=== PATIENT | male | born 1960 | race Two or more races ===

== ENCOUNTER 2016-07-02 09:49 | Emergency (ER) | payer OTHER ==
[~2016-07-02] VITALS: Ht 182.9 cm; Wt 131.5 kg
[2016-07-02] MEDS ORDERED: IV NORMAL SALINE 1000ML BAG 1,000 ML IV SCH (11:05)
--- NOTE | 2016-07-02 11:05 | PHYS DOC ---
Past Medical History Past Medical History: Diabetes-Type II Past Surgical History: Other Additional Past Surgical Histo: bilateral knee surgery, and right hand surgery x 3 Alcohol Use: Occasionally Drug Use: None Adult General Chief Complaint Chief Complaint: BLOOD SUGAR PROBLEM HPI HPI Patient is a 55 year old male who presents feeling sick. Patient reports since Tuesday he has felt sick and had chills. Since then he has been having nausea and vomiting; he is having trouble keeping down by mouth. He denies any diarrhea. He does have some nasal congestion and a mild headache. No fever. No other acute complaints. He has not taken anything for symptoms. Review of Systems Review of Systems Constitutional: Chills Eyes: Denies change in visual acuity or eye pain HENT: Nasal congestion. Denies sore throat Respiratory: Denies cough or shortness of breath Cardiovascular: Denies chest pain GI: Nausea /vomiting. Denies abdominal pain, bloody stools or diarrhea : Denies dysuria or hematuria Musculoskeletal: Denies back pain or joint pain Integument: Denies rash or skin lesions Neurologic: Mild headache. Denies focal weakness or sensory changes Current Medications Current Medications Current Medications Medications (Trade) Dose Ordered Sig/Luisito Start Time Stop Time Status Last Admin Dose Admin Acetaminophen (Tylenol) 1,000 mg 1X ONCE 07/02/16 11:15 07/02/16 11:32 DC 07/02/16 11:37 1,000 MG Prochlorperazine Edisylate (Compazine) 10 mg 1X ONCE 07/02/16 11:15 07/02/16 11:32 DC 07/02/16 11:38 10 MG Sodium Chloride (Iv Sodium Chloride 0.9% 1000ml Bag) 1,000 ml @ 1,000 mls/hr Q1H 07/02/16 11:05 07/02/16 12:04 DC 07/02/16 10:55 1,000 MLS/HR Allergies Allergies Allergies Coded Allergies Type Severity Reaction Last Updated Verified No Known Drug Allergies 07/02/16 No Physical Exam Physical Exam Constitutional: Well developed, well nourished, no acute distress, non-toxic appearance HENT: Normocephalic, atraumatic, bilateral external ears normal Eyes: EOMI, conjunctiva normal, no discharge Neck: Normal range of motion, no stridor Cardiovascular: Heart rate normal, regular rhythm, no murmur Lungs & Thorax: Bilateral breath sounds clear to auscultation Abdomen: Bowel sounds normal, soft, non-distended, no TTP Skin: Warm, dry, no erythema, no rash Extremities: No obvious deformity, no edema Neurologic: Alert and oriented X 3, no gross deficits noted Psychologic: Affect normal, judgement normal, mood normal Current Patient Data Vital Signs Vital Signs Date Time Temp Pulse Resp B/P Pulse Ox O2 Delivery O2 Flow Rate FiO2 07/02/16 14:07 94 28 135/65 88 Room Air 07/02/16 10:30 99.7 99.7 Lab Values Laboratory Tests Test 07/02/16 10:10 07/02/16 10:17 07/02/16 10:30 07/02/16 12:43 Influenza Type A Antigen Negative (NEGATIVE) Influenza Type B Antigen Negative (NEGATIVE) Glucose (Fingerstick) 413mg/dL (70-99) H White Blood Count 12.5x10^3/uL (4.0-11.0) H Red Blood Count 5.45x10^6/uL (4.30-5.70) Hemoglobin 15.2g/dL (13.0-17.5) Hematocrit 45.8% (39.0-53.0) Mean Corpuscular Volume 84fL (79-100) Mean Corpuscular Hemoglobin 28pg (25-35) Mean Corpuscular Hemoglobin Concent 33g/dL (31-37) Red Cell Distribution Width 15.2% (11.5-14.5) H Platelet Count 181x10^3/uL (140-400) Neutrophils (%) (Auto) 89% (31-73) H Lymphocytes (%) (Auto) 5% (24-48) L Monocytes (%) (Auto) 6% (0-9) Eosinophils (%) (Auto) 0% (0-3) Basophils (%) (Auto) 0% (0-3) Neutrophils # (Auto) 11.1x10^3uL (1.8-7.7) H Lymphocytes # (Auto) 0.6x10^3/uL (1.0-4.8) L Monocytes # (Auto) 0.8x10^3/uL (0.0-1.1) Eosinophils # (Auto) 0.0x10^3/uL (0.0-0.7) Basophils # (Auto) 0.0x10^3/uL (0.0-0.2) Segmented Neutrophils % 87% (35-66) H Band Neutrophils % 6% (0-9) Lymphocytes % 4% (24-48) L Monocytes % 3% (0-10) Metamyelocytes % % (0-0) Platelet Estimate Adequate (ADEQUATE) Large Platelets Present Sodium Level 129mmol/L (136-145) L Potassium Level 4.5mmol/L (3.5-5.1) Chloride Level 92mmol/L (98-107) L Carbon Dioxide Level 25mmol/L (21-32) Anion Gap 12 (6-14) Blood Urea Nitrogen 17mg/dL (8-26) Creatinine 1.0mg/dL (0.7-1.3) Estimated GFR (Cockcroft-Gault) 77.6 BUN/Creatinine Ratio 17 (6-20) Glucose Level 382mg/dL (70-99) H Calcium Level 8.9mg/dL (8.5-10.1) Total Bilirubin 0.8mg/dL (0.2-1.0) Aspartate Amino Transferase (AST) 18U/L (15-37) Alanine Aminotransferase (ALT) 19U/L (16-63) Alkaline Phosphatase 100U/L (46-116) Total Protein 8.1g/dL (6.4-8.2) Albumin 2.9g/dL (3.4-5.0) L Albumin/Globulin Ratio 0.6 (1.0-1.7) L Urine Collection Type Unknown Urine Color Yellow Urine Clarity Clear Urine pH 5.5 Urine Specific [place] >=1.030 Urine Protein Negativemg/dL (NEG-TRACE) Urine Glucose (UA) >=1000mg/dL (NEG) Urine Ketones (Stick) 15mg/dL (NEG) Urine Blood Moderate (NEG) Urine Nitrite Negative (NEG) Urine Bilirubin Negative (NEG) Urine Urobilinogen Dipstick 0.2mg/dL (0.2 mg/dL) Urine Leukocyte Esterase Small (NEG) Urine RBC 0/HPF (0-2) Urine WBC >40/HPF (0-4) Urine Squamous Epithelial Cells Few/LPF Urine Bacteria Few/HPF (0-FEW) Laboratory Tests 07/02/16 10:30 Laboratory Tests 07/02/16 10:30 Microbiology 07/02/16 Urine Culture - Preliminary, Resulted 07/02/16 Urine Culture Result 1 (EMILI) - Preliminary, Resulted EKG EKG [] Radiology/Procedures Radiology/Procedures [] Course & Med Decision Making Course & Med Decision Making Pertinent Labs and Imaging studies reviewed. (See chart for details) Patient is 55-year-old male who presents with nausea and vomiting. Likely viral gastroenteritis. No concerning findings on physical exam. Will be is dose of acetaminophen and Compazine, as well as IV fluid bolus. Labs ordered to evaluate. Labs notable for mild leukocytosis. Also hyperglycemia and hyponatremia; however corrected sodium is 134-136. Discussed results with patient, who is feeling much better at this time. I discussed options of inpatient admission versus discharge home with outpatient follow-up. Patient would very much like to go home at this time. Therefore we'll discharge him home with prescription for nausea medication, instructions for close follow-up, strict return precautions. Dragon Disclaimer Dragon Disclaimer This electronic medical record was generated, in whole or in part, using a voice recognition dictation system. Departure Departure Impression: Primary Impression: Nausea & vomiting Disposition: 01 HOME, SELF-CARE Condition: IMPROVED Referrals: OPAL GUTIERREZ MD (PCP) Patient Instructions: Nausea and Vomiting Additional Instructions: Thank you for allowing us to provide care today in the Emergency Department. Take the provided medication as directed. Schedule a follow up appointment with your primary care doctor. Return promptly to the Emergency Department if you develop any new or concerning symptoms. Scripts Promethazine HCl (Phenergan)25 Mg Supp.rect25 Mg RC Q8HRS PRN NAUSEA #6 SUPP.RECT Prov:YESSY BAUTISTA MD 07/02/16 Ondansetron (Zofran Odt)4 Mg Tab.rapdis1 Tab SL Q8HRS PRN NAUSEA #15 TAB Prov:YESSY BAUTISTA MD 07/02/16 YESSY BAUTISTA MD Jul 02, 2016 11:04
[2016-07-02] MEDS ORDERED: PROCHLORPERAZINE 10 MG/2 ML VIAL. IV ONE (11:15)
[2016-07-02] MEDS ORDERED: ACETAMINOPHEN 500 MG TABLET PO ONE (11:15)
[2016-07-02 11:21] LABS: BASO % 0 % (0-3); EOS % 0 % (0-3); HEMATOCRIT 45.8 % (39.0-53.0); HEMOGLOBIN 15.2 g/dL (13.0-17.5); LYMPH # 0.6 x10^3/uL (1.0-4.8); LYMPH % 5 % (24-48); MEAN CORPUSCULAR HEMOGLOBIN 28 pg (25-35); MEAN CORPUSCULAR HGB CONC 33 g/dL (31-37); MEAN CORPUSCULAR VOLUME 84 fL (79-100); MONO % 6 % (0-9); NEUT % 89 % (31-73); PLATELET COUNT 181 x10^3/uL (140-400); RED BLOOD COUNT 5.45 x10^6/uL (4.30-5.70); RED CELL DISTRIBUTION WIDTH 15.2 % (11.5-14.5); WHITE BLOOD COUNT 12.5 x10^3/uL (4.0-11.0)
[2016-07-02 11:26] LABS: CALCIUM 8.9 mg/dL (8.5-10.1); GFR 77.6; POTASSIUM 4.5 mmol/L (3.5-5.1)
[2016-07-02 11:32] LABS: ALBUMIN 2.9 g/dL (3.4-5.0); ALBUMIN/GLOBULIN RATIO 0.6 (1.0-1.7); TOTAL BILIRUBIN 0.8 mg/dL (0.2-1.0); TOTAL PROTEIN 8.1 g/dL (6.4-8.2)
[2016-07-02 12:58] LABS: PLT ESTIMATE ADEQUATE (ADEQUATE)
[2016-07-02 12:59] LABS: BILIRUBIN,URINE NEGATIVE (NEG); GLUCOSE,URINE >=1000 mg/dL (NEG); NITRITE,URINE NEGATIVE (NEG); PH,URINE 5.5; PROTEIN,URINE NEGATIVE (NEG-TRACE); UROBILINOGEN,URINE 0.2 mg/dL (0.2 mg/dL)
[2016-07-02 13:21] LABS: BACTERIA,URINE FEW /HPF (0-FEW); RBC,URINE 0 /HPF (0-2); SQUAMOUS EPITHELIAL CELL,UR FEW /LPF; WBC,URINE >40 /HPF (0-4)
[2016-07-02 14:07] VITALS: BP 135/65
[2016-07-02] MEDS ORDERED: PROM25SU32 RC (14:08)
[2016-07-02] MEDS ORDERED: ONDA4TAB10 SL (14:08)
[2016-07-03 14:15] LABS: OBC FLU VALID
--- NOTE | 2016-07-04 16:51 | VNOTE ---
CALL BACK NOTE CALL BACK Microbiology 07/02/16 Urine Culture - Final, Complete 07/02/16 Urine Culture Result 1 (EMILI) - Final, Complete 07/02/16 Antimicrobic Susceptibility - Final, Complete Patient's urine culture shows he has staph infection. Attempted to call patient , phone rang for long no one is picking. Will send certified letter. CLIFFORD ROQUE APRN Jul 04, 2016 16:51
== END 2016-07-02 14:43 | disposition home or self-care (01) ==
LOC: ER 09:49
DX: R11.2 Nausea with vomiting, unspecified (principal); E87.1 Hypo-osmolality and hyponatremia; E11.65 Type 2 diabetes mellitus with hyperglycemia; D72.829 Elevated white blood cell count, unspecified
CPT/HCPCS: 36415; 80053; 81001; 82947; 85007; 85027; 87086; 87804; 96361; 96374; 99285; J0780; J7030; 87186

== ENCOUNTER 2016-07-09 18:06 | Inpatient (IN) | payer OTHER ==
[~2016-07-09] VITALS: Ht 182.9 cm; Wt 136.1 kg
[~2016-07-09 18:06] MED LIST: ONDA4TAB10 SL; PROM25SU32 RC
[2016-07-09] MEDS ORDERED: IV NORMAL SALINE 1000ML BAG 1,000 ML IV SCH (19:18)
[2016-07-09] MEDS ORDERED: HYDROMORPHONE 2 MG/ML VIAL. IV ONE ×2 (19:30)
[2016-07-09] MEDS ORDERED: ONDANSETRON PF 4 MG/2 ML VIAL. IV ONE (19:30)
[2016-07-09 19:38] LABS: BASO # 0.1 x10^3/uL (0.0-0.2); BASO % 1 % (0-3); EOS % 1 % (0-3); HEMATOCRIT 42.9 % (39.0-53.0); HEMOGLOBIN 13.9 g/dL (13.0-17.5); LYMPH # 1.4 x10^3/uL (1.0-4.8); LYMPH % 9 % (24-48); MEAN CORPUSCULAR HEMOGLOBIN 27 pg (25-35); MEAN CORPUSCULAR HGB CONC 32 g/dL (31-37); MEAN CORPUSCULAR VOLUME 84 fL (79-100); MONO % 3 % (0-9); NEUT % 87 % (31-73); PLATELET COUNT 361 x10^3/uL (140-400); RED BLOOD COUNT 5.11 x10^6/uL (4.30-5.70); RED CELL DISTRIBUTION WIDTH 15.7 % (11.5-14.5); WHITE BLOOD COUNT 15.7 x10^3/uL (4.0-11.0)
[2016-07-09 19:42] LABS: CALCIUM 8.1 mg/dL (8.5-10.1); GFR 34.9; POTASSIUM 3.8 mmol/L (3.5-5.1)
[2016-07-09 19:47] LABS: ALBUMIN 1.8 g/dL (3.4-5.0); ALBUMIN/GLOBULIN RATIO 0.4 (1.0-1.7); TOTAL BILIRUBIN 0.7 mg/dL (0.2-1.0); TOTAL PROTEIN 6.6 g/dL (6.4-8.2)
[2016-07-09] MEDS ORDERED: ACETAMINOPHEN 325 MG TABLET. PO PRN ×2 (20:30→21:00)
[2016-07-09] MEDS ORDERED: ONDANSETRON PF 4 MG/2 ML VIAL. IV PRN (20:30)
[2016-07-09 20:32] LABS: BILIRUBIN,URINE SMALL (NEG); GLUCOSE,URINE 250 mg/dL (NEG); NITRITE,URINE NEGATIVE (NEG); PROTEIN,URINE NEGATIVE (NEG-TRACE)
[2016-07-09] MEDS: IV NORMAL SALINE 1000ML BAG 1,000 ML IV SCH ×2 (20:41→22:15)
[2016-07-09 20:42] LABS: BACTERIA,URINE MANY /HPF (0-FEW); SQUAMOUS EPITHELIAL CELL,UR MOD /LPF; WBC,URINE TNTC /HPF (0-4)
[2016-07-09 20:58] LABS: PLT ESTIMATE ADEQUATE (ADEQUATE)
[2016-07-09] MEDS ORDERED: DEXTROSE 50% 25 GM / 50ML DISP.SYRIN. IV PRN (21:00)
[2016-07-09] MEDS ORDERED: ALBUTEROL SULFATE 2.5 MG/3 ML NEBU. NEB PRN (21:00)
--- NOTE | 2016-07-09 21:00 | PDOC1 ---
History and Physical Date of Admission Date of Admission 07/09/16 Identification/Chief Complaint Chief Complaint N/V, feeling sick Problems: Source Source: Caregiver, Chart review, Patient History of Present Illness History of Present Illness 55yo M, comes for N/V ,low po intake, cough. pt started to cough since 1 week ago, with some runny nose, greenish sputum, no sob. He fell on right shoulder since then has pain. also has low po intake, body ache , vomited 2 times, feels thirsty. urination is ok. chronic constipation. in ER, Na 126, Cr 2 from 1 one week ago. has dm2 on pills. Past Medical History Endocrine: Diabetes Past Surgical History Past Surgical History: Total knee replacement Family History Family History: Diabetes Social History Smoke: No ALCOHOL: social Drugs: None Current Problem List Problem List Problems Medical Problems: (1) Acute renal injury Status: Acute (2) Nausea & vomiting Status: Acute Current Medications Current Medications Current Medications Medications (Trade) Dose Ordered Sig/Luisito Start Time Stop Time Status Last Admin Dose Admin Acetaminophen (Tylenol) 650 mg PRN Q4HRS PRN 07/09/16 20:30 07/10/16 20:29 Hydromorphone HCl (Dilaudid) 1 mg 1X ONCE 07/09/16 19:30 07/09/16 19:31 DC 07/09/16 19:33 1 MG Morphine Sulfate 4 mg 4 mg PRN Q2HR PRN 07/09/16 20:30 07/10/16 20:29 Ondansetron HCl (Zofran) 4 mg PRN Q8HRS PRN 07/09/16 20:30 07/10/16 20:29 Sodium Chloride (Iv Sodium Chloride 0.9% 1000ml Bag) 1,000 ml @ 150 mls/hr Q6H40M 07/09/16 20:24 07/10/16 20:23 07/09/16 20:41 150 MLS/HR Allergies Allergies Allergies Coded Allergies Type Severity Reaction Last Updated Verified No Known Drug Allergies 07/02/16 No ROS Review of System CONSTITUTIONAL: No fever or chills EYES: No recent changes SKIN: No rash or itching CARDIOVASCULAR: No chest pain, syncope, palpitations, or edema RESPIRATORY: No SOB or cough GASTROINTESTINAL: No nausea, vomiting or abdominal pain NEUROLOGICAL: No headaches or weakness ENDOCRINE: No cold or heat intolerance GENITOURINARY: No urgency or frequency of urination MUSCULOSKELETAL: No back pain or joint pain LYMPHATICS: No enlarged lymph nodes PSYCHIATRIC: No anxiety or depression Physical Exam Physical Exam GEN.: No apparent distress. Alert and oriented. looks weak and dry HEENT: Head is normocephalic, atraumatic NECK: Supple. LUNGS: Clear to auscultation. HEART: RRR, S1, S2 present. Peripheral pulses intact ABDOMEN: Soft, nontender. Positive bowel sounds. EXTREMITIES: Without any cyanosis. NEUROLOGIC: Normal speech, normal tone PSYCHIATRIC: Normal affect, normal mood. SKIN: No ulcerations Vitals Vitals Vital Signs Date Time Temp Pulse Resp B/P Pulse Ox O2 Delivery O2 Flow Rate FiO2 07/09/16 18:35 98.7 108 28 117/54 94 Room Air 98.7 Labs Labs Laboratory Tests Test 07/09/16 18:50 07/09/16 20:25 White Blood Count 15.7x10^3/uL (4.0-11.0) Red Blood Count 5.11x10^6/uL (4.30-5.70) Hemoglobin 13.9g/dL (13.0-17.5) Hematocrit 42.9% (39.0-53.0) Mean Corpuscular Volume 84fL (79-100) Mean Corpuscular Hemoglobin 27pg (25-35) Mean Corpuscular Hemoglobin Concent 32g/dL (31-37) Red Cell Distribution Width 15.7% (11.5-14.5) Platelet Count 361x10^3/uL (140-400) Neutrophils (%) (Auto) 87% (31-73) Lymphocytes (%) (Auto) 9% (24-48) Monocytes (%) (Auto) 3% (0-9) Eosinophils (%) (Auto) 1% (0-3) Basophils (%) (Auto) 1% (0-3) Neutrophils # (Auto) 13.6x10^3uL (1.8-7.7) Lymphocytes # (Auto) 1.4x10^3/uL (1.0-4.8) Monocytes # (Auto) 0.5x10^3/uL (0.0-1.1) Eosinophils # (Auto) 0.1x10^3/uL (0.0-0.7) Basophils # (Auto) 0.1x10^3/uL (0.0-0.2) Sodium Level 126mmol/L (136-145) Potassium Level 3.8mmol/L (3.5-5.1) Chloride Level 87mmol/L (98-107) Carbon Dioxide Level 27mmol/L (21-32) Anion Gap 12 (6-14) Blood Urea Nitrogen 57mg/dL (8-26) Creatinine 2.0mg/dL (0.7-1.3) Estimated GFR (Cockcroft-Gault) 34.9 BUN/Creatinine Ratio 29 (6-20) Glucose Level 379mg/dL (70-99) Calcium Level 8.1mg/dL (8.5-10.1) Total Bilirubin 0.7mg/dL (0.2-1.0) Aspartate Amino Transf (AST/SGOT) 55U/L (15-37) Alanine Aminotransferase (ALT/SGPT) 50U/L (16-63) Alkaline Phosphatase 107U/L (46-116) Troponin I Quantitative < 0.017ng/mL (0.000-0.055) Total Protein 6.6g/dL (6.4-8.2) Albumin 1.8g/dL (3.4-5.0) Albumin/Globulin Ratio 0.4 (1.0-1.7) Lipase 396U/L (73-393) Urine Collection Type Unknown Urine Color Flory Urine Clarity Cloudy Urine pH 5.0 Urine Specific [place] 1.015 Urine Protein Negativemg/dL (NEG-TRACE) Urine Glucose (UA) 250mg/dL (NEG) Urine Ketones (Stick) Negativemg/dL (NEG) Urine Blood Moderate (NEG) Urine Nitrite Negative (NEG) Urine Bilirubin Small (NEG) Urine Urobilinogen Dipstick 1.0mg/dL (0.2 mg/dL) Urine Leukocyte Esterase Large (NEG) Urine RBC 11-20/HPF (0-2) Urine WBC Tntc/HPF (0-4) Urine Squamous Epithelial Cells Mod/LPF Urine Amorphous Sediment Present/HPF Urine Bacteria Many/HPF (0-FEW) Urine Mucus Mod/LPF Laboratory Tests Test 07/09/16 18:50 07/09/16 20:25 White Blood Count 15.7x10^3/uL (4.0-11.0) Red Blood Count 5.11x10^6/uL (4.30-5.70) Hemoglobin 13.9g/dL (13.0-17.5) Hematocrit 42.9% (39.0-53.0) Mean Corpuscular Volume 84fL (79-100) Mean Corpuscular Hemoglobin 27pg (25-35) Mean Corpuscular Hemoglobin Concent 32g/dL (31-37) Red Cell Distribution Width 15.7% (11.5-14.5) Platelet Count 361x10^3/uL (140-400) Neutrophils (%) (Auto) 87% (31-73) Lymphocytes (%) (Auto) 9% (24-48) Monocytes (%) (Auto) 3% (0-9) Eosinophils (%) (Auto) 1% (0-3) Basophils (%) (Auto) 1% (0-3) Neutrophils # (Auto) 13.6x10^3uL (1.8-7.7) Lymphocytes # (Auto) 1.4x10^3/uL (1.0-4.8) Monocytes # (Auto) 0.5x10^3/uL (0.0-1.1) Eosinophils # (Auto) 0.1x10^3/uL (0.0-0.7) Basophils # (Auto) 0.1x10^3/uL (0.0-0.2) Sodium Level 126mmol/L (136-145) Potassium Level 3.8mmol/L (3.5-5.1) Chloride Level 87mmol/L (98-107) Carbon Dioxide Level 27mmol/L (21-32) Anion Gap 12 (6-14) Blood Urea Nitrogen 57mg/dL (8-26) Creatinine 2.0mg/dL (0.7-1.3) Estimated GFR (Cockcroft-Gault) 34.9 BUN/Creatinine Ratio 29 (6-20) Glucose Level 379mg/dL (70-99) Calcium Level 8.1mg/dL (8.5-10.1) Total Bilirubin 0.7mg/dL (0.2-1.0) Aspartate Amino Transf (AST/SGOT) 55U/L (15-37) Alanine Aminotransferase (ALT/SGPT) 50U/L (16-63) Alkaline Phosphatase 107U/L (46-116) Troponin I Quantitative < 0.017ng/mL (0.000-0.055) Total Protein 6.6g/dL (6.4-8.2) Albumin 1.8g/dL (3.4-5.0) Albumin/Globulin Ratio 0.4 (1.0-1.7) Lipase 396U/L (73-393) Urine Collection Type Unknown Urine Color [place] Urine Clarity Cloudy Urine pH 5.0 Urine Specific [place] 1.015 Urine Protein Negativemg/dL (NEG-TRACE) Urine Glucose (UA) 250mg/dL (NEG) Urine Ketones (Stick) Negativemg/dL (NEG) Urine Blood Moderate (NEG) Urine Nitrite Negative (NEG) Urine Bilirubin Small (NEG) Urine Urobilinogen Dipstick 1.0mg/dL (0.2 mg/dL) Urine Leukocyte Esterase Large (NEG) Urine RBC 11-20/HPF (0-2) Urine WBC Tntc/HPF (0-4) Urine Squamous Epithelial Cells Mod/LPF Urine Amorphous Sediment Present/HPF Urine Bacteria Many/HPF (0-FEW) Urine Mucus Mod/LPF VTE Prophylaxis Ordered VTE Prophylaxis Devices: Yes VTE Pharmacological Prophylaxi: Yes Assessment/Plan Assessment/Plan 1. dehydration 2. hyponatremia 3. NELIDA, 2/2 vasomotor, dehydration 4. dm2 5. bronchitis 6. moderate malnutrition plan: 1. ivf 2. levaquin for now, albuterol prn 3. ssi hold home meds labs tmr cough meds hope to dc in 1-2ds. LATA MAHER MD Jul 09, 2016 21:00
[2016-07-09] MEDS: GUAIFENESIN ER 600 MG TABLET.ER PO SCH (21:20)
[2016-07-09 21:30] VITALS: BP 99/58
[2016-07-09] MEDS: MORPHINE SULFATE 4 MG/ML DISP.SYRIN. IV PRN (22:20)
[2016-07-09 23:00] VITALS: BP 112/60
--- NOTE | 2016-07-09 23:35 | PHYS DOC ---
Past Medical History Past Medical History: Diabetes-Type II Past Surgical History: Other Additional Past Surgical Histo: bilateral knee surgery, and right hand surgery x 3 Alcohol Use: Occasionally Drug Use: None Adult General Chief Complaint Chief Complaint: DIZZY/LIGHT HEADED HPI HPI Patient is a 55 year old gentleman who presents here today secondary to generalized weakness, dizziness. Patient does have a history for NIDDM and reports his blood sugar has been significantly elevated for approximately one week. Family reports that he was in the ER [facility] one week ago for similar symptoms and was hydrated was sent home. They report he has not been doing very well at home and his blood sugars been consistently elevated and he has not been able to keep down his oral hypoglycemic agents. Patient denies any fevers shaking chills. He has been having episodes of nausea and vomiting. Patient denies any diarrhea. Patient has diffuse abdominal cramping. Patient has any chest pain or shortness of breath. Patient denies any dysuria frequency or urgency. Patient does report he has had decreased urinary output. Patient reports he is unable to keep down his medications. Patient has history of diabetes for which she is on metformin and [facility]. Patient has history of hypertension. Patient has no history of DKA in the past. No liver longer kidney problems. No surgeries. No allergies. Patient does not smoke or drink. Patient reports that he fell secondary feeling dizzy and injured his left shoulder however he reports he does not think it is broken and he is refusing to allow me to order an x-ray on him. He did allow me to get a chest x-ray on him and I can visualize some of his shoulder and is now broken. Patient's physical exam is remarkable for a 55-year-old gentleman who appears moderately dehydrated. Patient has dry mucous membranes and is tachycardic. Patient does appear to be uncomfortable. Patient has a normal exam otherwise. Patient's abdomen is soft nontender no rebound or guarding. No evidence of an acute surgical abdomen at this time. Normal active bowel sounds. Patient's lungs are clear without wheezing rales or rhonchi. No rashes noted. Patient denies any chest pain shortness of breath. Patient has any fevers. In the ED labs were drawn. Patient's labs were significant for a markedly depressed sodium. Patient's blood sugar was elevated. Patient did have acute renal failure likely secondary to dehydration. Patient was hydrated with normal saline solution the ED and given antiemetics and pain medicines in the ER. Given the significant hyponatremia, hydration, tachycardia nausea we will admit the patient for hydration and for further management of his uncontrolled diabetes. Patient does not appear to be in DKA at this time. Patient has a normal anion gap and no evidence of acidosis at this time. Review of Systems Review of Systems Constitutional: Denies fever or chills [] Eyes: Denies change in visual acuity, redness, or eye pain [] All other review systems are negative except as documented in the history of present illness portion. Current Medications Current Medications Current Medications Medications (Trade) Dose Ordered Sig/Luisito Start Time Stop Time Status Last Admin Dose Admin Hydromorphone HCl (Dilaudid) 1 mg 1X ONCE 07/09/16 19:30 07/09/16 19:31 DC 07/09/16 19:33 1 MG Ondansetron HCl (Zofran) 4 mg 1X ONCE 07/09/16 19:30 07/09/16 19:31 DC 07/09/16 19:33 4 MG Sodium Chloride (Iv Sodium Chloride 0.9% 1000ml Bag) 1,000 ml @ 1,000 mls/hr Q1H 07/09/16 19:18 07/09/16 20:17 DC 07/09/16 19:34 1,000 MLS/HR Allergies Allergies Allergies Coded Allergies Type Severity Reaction Last Updated Verified No Known Drug Allergies 07/02/16 No Physical Exam Physical Exam Constitutional: Well developed, well nourished, no acute distress, non-toxic appearance. [] HENT: Normocephalic, atraumatic, bilateral external ears normal, oropharynx moist, no oral exudates, nose normal. [] Eyes: PERRLA, EOMI, conjunctiva normal, no discharge. [] Neck: Normal range of motion, no tenderness, supple, no stridor. [] Cardiovascular: Tachycardic Lungs & Thorax: Bilateral breath sounds clear to auscultation [] Abdomen: Bowel sounds normal, soft, no tenderness, no masses, no pulsatile masses. [] Skin: Warm, dry, no erythema, no rash. [] Back: No tenderness, no CVA tenderness. [] Extremities: No tenderness, no cyanosis, no clubbing, ROM intact, no edema. [] Neurologic: Alert and oriented X 3, normal motor function, normal sensory function, no focal deficits noted. [] Psychologic: Affect normal, judgement normal, mood normal. [] Current Patient Data Vital Signs Vital Signs Date Time Temp Pulse Resp B/P Pulse Ox O2 Delivery O2 Flow Rate FiO2 07/09/16 20:00 102 99/49 97 Nasal Cannula 2 07/09/16 18:35 98.7 28 98.7 Lab Values Laboratory Tests Test 07/09/16 18:50 White Blood Count 15.7x10^3/uL (4.0-11.0) H Red Blood Count 5.11x10^6/uL (4.30-5.70) Hemoglobin 13.9g/dL (13.0-17.5) Hematocrit 42.9% (39.0-53.0) Mean Corpuscular Volume 84fL (79-100) Mean Corpuscular Hemoglobin 27pg (25-35) Mean Corpuscular Hemoglobin Concent 32g/dL (31-37) Red Cell Distribution Width 15.7% (11.5-14.5) H Platelet Count 361x10^3/uL (140-400) Neutrophils (%) (Auto) 87% (31-73) H Lymphocytes (%) (Auto) 9% (24-48) L Monocytes (%) (Auto) 3% (0-9) Eosinophils (%) (Auto) 1% (0-3) Basophils (%) (Auto) 1% (0-3) Neutrophils # (Auto) 13.6x10^3uL (1.8-7.7) H Lymphocytes # (Auto) 1.4x10^3/uL (1.0-4.8) Monocytes # (Auto) 0.5x10^3/uL (0.0-1.1) Eosinophils # (Auto) 0.1x10^3/uL (0.0-0.7) Basophils # (Auto) 0.1x10^3/uL (0.0-0.2) Segmented Neutrophils % 93% (35-66) H Band Neutrophils % 1% (0-9) Lymphocytes % 4% (24-48) L Monocytes % 2% (0-10) Platelet Estimate Adequate (ADEQUATE) Sodium Level 126mmol/L (136-145) L Potassium Level 3.8mmol/L (3.5-5.1) Chloride Level 87mmol/L (98-107) L Carbon Dioxide Level 27mmol/L (21-32) Anion Gap 12 (6-14) Blood Urea Nitrogen 57mg/dL (8-26) H Creatinine 2.0mg/dL (0.7-1.3) H Estimated GFR (Cockcroft-Gault) 34.9 BUN/Creatinine Ratio 29 (6-20) H Glucose Level 379mg/dL (70-99) H Calcium Level 8.1mg/dL (8.5-10.1) L Total Bilirubin 0.7mg/dL (0.2-1.0) Aspartate Amino Transferase (AST) 55U/L (15-37) H Alanine Aminotransferase (ALT) 50U/L (16-63) Alkaline Phosphatase 107U/L (46-116) Troponin I Quantitative < 0.017ng/mL (0.000-0.055) Total Protein 6.6g/dL (6.4-8.2) Albumin 1.8g/dL (3.4-5.0) L Albumin/Globulin Ratio 0.4 (1.0-1.7) L Lipase 396U/L (73-393) H Laboratory Tests 07/09/16 18:50 Laboratory Tests 07/09/16 18:50 EKG EKG [] Radiology/Procedures Radiology/Procedures [] Course & Med Decision Making Course & Med Decision Making Pertinent Labs and Imaging studies reviewed. (See chart for details) [] The case was discussed with and will be admitted for further evaluation. Dragon Disclaimer Dragon Disclaimer This electronic medical record was generated, in whole or in part, using a voice recognition dictation system. Departure Departure Impression: Primary Impression: Acute renal injury Additional Impressions: Hyponatremia Dehydration Uncontrolled diabetes mellitus Disposition: 09 ADMITTED INPATIENT Admitting Physician: Char Romero Condition: GUARDED Referrals: OPAL GUTIERREZ MD (PCP) Problem Qualifiers MITA ACEVES MD Jul 09, 2016 23:35
[2016-07-10] VITALS (8 sets, daily range): BP systolic 81–112; BP diastolic 43–57
--- NOTE | 2016-07-10 00:05 | ACF ---
Admission Forms Criteria HYPONATREMIA; HYPERNATREMIA; HYPOKALEMIA; HYPERKALEMIA; HYPOCALCEMIA; HYPERCALCEMIA Clinical Indications for Inpatient Care (Place 'X' for any and all applicable criteria): Ongoing inpatient care may be indicated for ANY ONE of the following [G](1)(2)(3 )(5): [X ]I. Hyponatremia with ANY ONE of the following: [ X]a) Sodium less than 130 mEq/L (mmol/L) (new) (6)(22) [ ]b) Sodium less than 135 mEq/L (mmol/L) with ANY ONE of the following: [ ]i) Severe medical etiology requiring inpatient management (eg, heart failure, hypovolemia) [ ]ii) Altered mental status [ ]iii) Seizures [ ]II. Hypernatremia with ANY ONE of the following: [ ]a) Sodium greater than 155 mEq/L (mmol/L) [ ]b) Sodium greater than 150 mEq/L (mmol/L) with ANY ONE of the following: [ ] i) Altered mental status [ ]ii) Seizures [ ]iii) Severe medical etiology (eg, hypovolemia, diabetes insipidus) [ ]iv) Severe weakness [ ]v) Severe medical etiology (eg, hemolysis, infection, drug overdose) [ ]III. Hypokalemia with ANY ONE of the following: [ ]a) Potassium less than 2.5 mEq/L (mmol/L) despite outpatient and emergency treatment [ ]b) Potassium less than 3.0 mEq/L (mmol/L) with ANY ONE of the following: [ ]i) Weakness [ ]ii) Cardiac abnormality (eg, arrhythmia, conduction disturbance) [ ]iii) Cardiac ischemia [ ]iv) Ileus [ ]v) Ongoing medical cause requiring inpatient management. ( e.g., acute renal wasting, SIADH) [ ]vi) Other severe symptoms [ ] IV. Hyperkalemia with ANY ONE of the following: [ ]a) Potassium greater than 6.5 mEq/L (mmol/L) [ ]b) Potassium greater than 5 mEq/L (mmol/L) with ANY ONE of the following: [ ]i) Severe ECG findings [H] [ ]ii) Acute worsening of renal failure (creatinine greater than 2.5 mg/dL (221 micromoles/L) or significant elevation for age and size) [ ] V. Hypocalcemia with ANY ONE of the following: [ ]a) Calcium less than 7 mg/dL (1.75 mmol/L) despite outpatient and emergency treatment(19) [ ]b) Calcium less than 8 mg/dL (2 mmol/L) with significant symptoms or findings; examples include: [ ]i) Cardiac abnormality (eg, arrhythmia or conduction disturbance) [ ]ii) Altered mental status [ ]iii) Seizures [ ]iv) Breathing difficulty [ ]v) Muscle spasms [ ]. Hypercalcemia with ANY ONE of the following: [ ]a) Calcium greater than 14 mg/dL (3.5 mmol/L) [ ]b) Calcium greater than 12 mg/dL (3 mmol/L) with ANY ONE of the following: [ ]i) Significant dehydration or hypovolemia as indicated by ANY ONE of the following(2): [ ]1. Clinically significant dehydration as indicated by ANY ONE of the following: [ ]A. Acute loss of weight from baseline (5% of body weight in adults, 9% in pediatric patients) [ ]B. Hemodynamic instability [ ]C. Acute renal failure [ ]D. Serum sodium greater than 150 mEq/L (mmol/L) [ ]2) Dehydration that is persistent indicated by ALL of the following: [ ]A. Oral rehydration therapy not tolerated or insufficient to adequately correct dehydration [ ]B. Appropriate intravenous treatment (eg, fluids ) does not readily correct dehydration ie, after 12 to 24 hours of treatment) [ ]ii) Significant symptoms or findings; examples include: [ ]1) Altered mental status [ ]2) Cardiac abnormality (eg, arrhythmia, conduction disturbance) [ ]3) Cardiac abnormality (eg, arrhythmia, conduction disturbance) The original [facility] content created by [email or web address] has been revised. The portions of the content which have been revised are identified through the use of italic text or in bold, and [email or web address] has neither reviewed nor approved the modified material. All other unmodified content is copyright [email or web address] Please see references footnoted in the original [email or web address] edition 2016 Admission Criteria Met?: Yes COOKIE SALCIDO Jul 10, 2016 00:05
--- NOTE | 2016-07-10 02:09 | EKG ---
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
[2016-07-10] MEDS: IV NORMAL SALINE 1000ML BAG 1,000 ML IV SCH ×5 (03:04→18:20)
[2016-07-10 06:19] LABS: CALCIUM 7.8 mg/dL (8.5-10.1); CREATININE 1.6 mg/dL (0.7-1.3); GFR 45.1; POTASSIUM 3.5 mmol/L (3.5-5.1)
[2016-07-10] MEDS: MORPHINE SULFATE 4 MG/ML DISP.SYRIN. IV PRN (06:36)
[2016-07-10] MEDS: INSULIN ASPART 300 UNITS/3 ML INSULN.PEN SQ SCH ×3 (08:09→17:11)
--- NOTE | 2016-07-10 08:43 | RAD ---
Indication pain. A single view of the chest was obtained. No prior imaging is available. The heart, pulmonary vessels and mediastinum appear unremarkable. A focal infiltrate is not seen. There is no significant pleural fluid or pneumothorax. There is a nodule in the left lower lobe. Comparison with any old films or follow-up imaging assessing stability is advised. The findings and recommendations were communicated to Nessa, one of the nurses in the emergency room, at the time of dictation IMPRESSION: No acute finding. Nodule in the left lung. Comparison with old films or follow-up imaging advised
[2016-07-10] MEDS: GUAIFENESIN ER 600 MG TABLET.ER PO SCH ×2 (09:22→21:47)
--- NOTE | 2016-07-10 09:29 | PDOC ---
PROGRESS NOTES Chief Complaint Chief Complaint Dehydration ASSESSMENT AND PLAN: 1. Dehydration: slowly improving. cont IVF for now 2. Hyponatremia: improving. cont IVF 3. NELIDA, 2/2 vasomotor/ dehydration. suspicious for underlying CKD with e.lyte imbalance and hypoalbuminemia. nephrology consult 4. LLL lung nodule: reviewed by myself: non-spiculated. obtain (non-con) CT chest to eval 5. DM2: fair control. hold oral meds for now 2/2 above. ISS 6. Bronchitis: on levaquin, suppl O2, cough meds 7. Recent S.epi UTI: sens to levaquin 8. Hypoalbuminemia: severe, in BMI 38. ? acute inflammation, malnutrition vs renal losses. supplements 9. prophylaxis: heparin Vitals Vitals Vital Signs Date Time Temp Pulse Resp B/P Pulse Ox O2 Delivery O2 Flow Rate FiO2 07/10/16 07:30 Room Air 07/10/16 07:15 98.4 125 20 81/43 92 98.4 07/09/16 23:00 2.0 Physical Exam General: Alert, Oriented X3, Cooperative, No acute distress Heart: Regular rate Lungs: Clear Abdomen: Normal bowel sounds, Soft, No tenderness Extremities: No clubbing, No edema Skin: No rashes Labs LABS Laboratory Tests Test 07/09/16 18:50 07/09/16 20:25 07/09/16 21:33 07/10/16 03:45 White Blood Count 15.7x10^3/uL (4.0-11.0) Red Blood Count 5.11x10^6/uL (4.30-5.70) Hemoglobin 13.9g/dL (13.0-17.5) Hematocrit 42.9% (39.0-53.0) Mean Corpuscular Volume 84fL (79-100) Mean Corpuscular Hemoglobin 27pg (25-35) Mean Corpuscular Hemoglobin Concent 32g/dL (31-37) Red Cell Distribution Width 15.7% (11.5-14.5) Platelet Count 361x10^3/uL (140-400) Neutrophils (%) (Auto) 87% (31-73) Lymphocytes (%) (Auto) 9% (24-48) Monocytes (%) (Auto) 3% (0-9) Eosinophils (%) (Auto) 1% (0-3) Basophils (%) (Auto) 1% (0-3) Neutrophils # (Auto) 13.6x10^3uL (1.8-7.7) Lymphocytes # (Auto) 1.4x10^3/uL (1.0-4.8) Monocytes # (Auto) 0.5x10^3/uL (0.0-1.1) Eosinophils # (Auto) 0.1x10^3/uL (0.0-0.7) Basophils # (Auto) 0.1x10^3/uL (0.0-0.2) Segmented Neutrophils % 93% (35-66) Band Neutrophils % 1% (0-9) Lymphocytes % 4% (24-48) Monocytes % 2% (0-10) Platelet Estimate Adequate (ADEQUATE) Sodium Level 126mmol/L (136-145) 130mmol/L (136-145) Potassium Level 3.8mmol/L (3.5-5.1) 3.5mmol/L (3.5-5.1) Chloride Level 87mmol/L (98-107) 91mmol/L (98-107) Carbon Dioxide Level 27mmol/L (21-32) 27mmol/L (21-32) Anion Gap 12 (6-14) 12 (6-14) Blood Urea Nitrogen 57mg/dL (8-26) 59mg/dL (8-26) Creatinine 2.0mg/dL (0.7-1.3) 1.6mg/dL (0.7-1.3) Estimated GFR (Cockcroft-Gault) 34.9 45.1 BUN/Creatinine Ratio 29 (6-20) Glucose Level 379mg/dL (70-99) 195mg/dL (70-99) Calcium Level 8.1mg/dL (8.5-10.1) 7.8mg/dL (8.5-10.1) Total Bilirubin 0.7mg/dL (0.2-1.0) Aspartate Amino Transf (AST/SGOT) 55U/L (15-37) Alanine Aminotransferase (ALT/SGPT) 50U/L (16-63) Alkaline Phosphatase 107U/L (46-116) Troponin I Quantitative < 0.017ng/mL (0.000-0.055) Total Protein 6.6g/dL (6.4-8.2) Albumin 1.8g/dL (3.4-5.0) Albumin/Globulin Ratio 0.4 (1.0-1.7) Lipase 396U/L (73-393) Urine Collection Type Unknown Urine Color Flory Urine Clarity Cloudy Urine pH 5.0 Urine Specific [place] 1.015 Urine Protein Negativemg/dL (NEG-TRACE) Urine Glucose (UA) 250mg/dL (NEG) Urine Ketones (Stick) Negativemg/dL (NEG) Urine Blood Moderate (NEG) Urine Nitrite Negative (NEG) Urine Bilirubin Small (NEG) Urine Urobilinogen Dipstick 1.0mg/dL (0.2 mg/dL) Urine Leukocyte Esterase Large (NEG) Urine RBC 11-20/HPF (0-2) Urine WBC Tntc/HPF (0-4) Urine Squamous Epithelial Cells Mod/LPF Urine Amorphous Sediment Present/HPF Urine Bacteria Many/HPF (0-FEW) Urine Mucus Mod/LPF Glucose (Fingerstick) 294mg/dL (70-99) Test 07/10/16 07:15 Glucose (Fingerstick) 209mg/dL (70-99) Review of Systems Review of Systems feels poorly, tearful. no focal c/o Assessment and Plan Assessmemt and Plan Problems: Comment Review of Relevant ERAN MATUTE MD Jul 10, 2016 09:29
[2016-07-10] MEDS ORDERED: IV NORMAL SALINE 1000ML BAG 1,000 ML IV ONE (10:30)
[2016-07-10] MEDS: ALPRAZOLAM 0.5 MG TABLET PO PRN ×2 (13:08→23:29)
[2016-07-10] MEDS ORDERED: MAGNESIUM SULFATE 2GM 50 ML IV PRN (14:00)
--- NOTE | 2016-07-10 14:03 | PDOC2 ---
CONSULT Date of Consult Date of Consult DATE: 07/10/16 TIME: 14:01 Reason for Consult Reason for Consult: NELIDA Referring Physician Referring Physician: Dr Jones Identification/Chief Complaint Chief Complaint Feeling weak Problems: Source Source: Chart review Past Medical History Rheumatologic: Other (arthritis) Endocrine: Diabetes Past Surgical History Past Surgical History Knee surgery Family History Family History: Diabetes Social History No ALCOHOL: social Drugs: None Current Problem List Problem List Problems Medical Problems: (1) Acute renal injury Status: Acute (2) Dehydration Status: Acute (3) Hyponatremia Status: Acute (4) Nausea & vomiting Status: Acute (5) Uncontrolled diabetes mellitus Status: Acute Current Medications Current Medications Current Medications Sodium Chloride (Iv Sodium Chloride 0.9% 1000ml Bag) 1,000 ml @ 1,000 mls/hr Q1H IV Last administered on 07/09/16 19:34; Start 07/09/16 at 19:18; Stop at 20:17; Status DC Hydromorphone HCl (Dilaudid) 2 mg 1X ONCE IV ; Start 07/09/16 at 19:30; Stop at 19:30; Status DC Ondansetron HCl (Zofran) 4 mg 1X ONCE IV Last administered on 07/09/16 19:33 ; Start 07/09/16 at 19:30; Stop 07/09/16 at 19:31; Status DC Hydromorphone HCl (Dilaudid) 1 mg 1X ONCE IV Last administered on 07/09/16 19 :33; Start 07/09/16 at 19:30; Stop 07/09/16 at 19:31; Status DC Ondansetron HCl (Zofran) 4 mg PRN Q8HRS PRN IV NAUSEA/VOMITING; Start 07/09/16 at 20:30; Stop 07/09/16 at 21:00; Status DC Morphine Sulfate 4 mg 4 mg PRN Q2HR PRN IV PAIN Last administered on 07/10/16 06:36; Start 07/09/16 at 20:30; Stop 07/10/16 at 13:00; Status DC Sodium Chloride (Iv Sodium Chloride 0.9% 1000ml Bag) 1,000 ml @ 150 mls/hr Q6H40M IV Last administered on 07/09/16 20:41; Start 07/09/16 at 20:24; Stop 07/10/16 at 20:23 Acetaminophen (Tylenol) 650 mg PRN Q4HRS PRN PO FEVER; Start 07/09/16 at 20:30 ; Stop 07/09/16 at 21:00; Status DC Acetaminophen (Tylenol) 650 mg PRN Q6HRS PRN PO FEVER; Start 07/09/16 at 21:00 Ondansetron HCl 4 mg 4 mg PRN Q6HRS PRN IV NAUSEA/VOMITING; Start 07/09/16 at 21:00 Sodium Chloride (Iv Sodium Chloride 0.9% 1000ml Bag) 1,000 ml @ 150 mls/hr Q6H40M IV Last administered on 07/10/16 11:33; Start 07/09/16 at 21:00 Insulin Aspart (Novolog) 0-9 UNITS TIDWMEALS SQ Last administered on 07/10/16 12:17; Start 07/10/16 at 08:00 Dextrose 12.5 gm 12.5 gm PRN Q15MIN PRN IV SEE COMMENTS; Start 07/09/16 at 21: 00 Levofloxacin/ Dextrose (LEVAQUIN 500mg PREMIX) 100 ml @ 100 mls/hr Q24H IV Last administered on 07/09/16 21:20; Start 07/09/16 at 22:00 Guaifenesin (Mucinex) 600 mg BID PO Last administered on 07/10/16 09:22; Start 07/09/16 at 21:00 Albuterol Sulfate 2.5 mg 2.5 mg PRN Q4HRS PRN NEB SHORTNESS OF BREATH; Start at 21:00 Sodium Chloride (Iv Sodium Chloride 0.9% 1000ml Bag) 1,000 ml @ 0 mls/hr 1X ONCE IV Last administered on 07/10/16 10:27; Start 07/10/16 at 10:30; Stop at 10:31; Status DC Alprazolam (Xanax) 0.5 mg PRN Q8HRS PRN PO ANXIETY / AGITATION Last administered on 07/10/16 13:08; Start 07/10/16 at 13:00 Acetaminophen/ Hydrocodone Bitart (Lortab 5/325) 1 tab PRN Q6HRS PRN PO PAIN; Start 07/10/16 at 13:00 Acetaminophen (Tylenol) 650 mg PRN Q6HRS PRN PO MILD PAIN / TEMP; Start at 13:00 Heparin Sodium (Porcine) 5,000 unit Q8HRS SQ ; Start 07/10/16 at 14:00 Active Scripts Active Phenergan (Promethazine HCl) 25 Mg Supp.rect 25 Mg RC Q8HRS PRN Zofran Odt (Ondansetron) 4 Mg Tab.rapdis 1 Tab SL Q8HRS PRN Allergies Allergies: Coded Allergies: No Known Drug Allergies (Unverified , 07/02/16) ROS Review of System as outlined in HPI - other kwan -ve Physical Exam Physical Exam General Appearance: Awake Alert Oriented x 3 In no Distress Eyes: VIsion Unchanged Conjunctiva Normal EN: No EN Drainage Mucous Memb. dryish Neck: no JVD no JVP Supple no Thyromegaly CVS: S1 S2 no Murmur No Gallop No Rub no Edema Resp: no Rales no Rhonchi no Acc. Muscle use GI: BAS +ve NO Bruit Non Tender Non Distended : no CVA tenderness; no Suprapubic Tenderness SKIN: no Rashes Breast Exam deferred Mu.Sk: Adequate ROM no Muscle Atrophy Heme: Unable to palpate Obvious LAD no Splenomegaly NEURO: Good Strength and Tone Cranial Nerves II - XII grossly intact Psych: ? Depressed no Active hallucination Vital Signs Vital Signs Date Time Temp Pulse Resp B/P Pulse Ox O2 Delivery O2 Flow Rate FiO2 07/10/16 13:36 103 20 101/46 Room Air 07/10/16 10:10 99.3 95 99.3 07/09/16 23:00 2.0 Assessment & Plan NELIDA - suspect due to Sev VMN - Better with IVF. Current FLuid and E-lyte status does not necessitate emergent need for Dialysis. will chec CK due to dark colored and urine and discrepancy of RBCs to Blood. Pt declined renal US HypoNatremia - due to NV and Vol dpeltion besides some PseudoHypoNatremia from Ch ^ ed FSBS SEv. Vol depletion - IVf as ordered Oliguria- Improving with iVf as ordered Poorly controlled DM - check A1c; sees Dr Diana as OP Pancreatitis - ? due to Dehydration and poorly controlled DM-2 Sev Hypoalbuminemia - suspect due to Poor PO intake over the last few months HTN: Current BP meds reviewed. See orders for changes. Discussed Plan of Care and prognosis etc. at length with family () Labs Labs Laboratory Tests Test 07/09/16 18:50 07/09/16 20:25 07/09/16 21:33 07/10/16 03:45 White Blood Count 15.7x10^3/uL (4.0-11.0) Red Blood Count 5.11x10^6/uL (4.30-5.70) Hemoglobin 13.9g/dL (13.0-17.5) Hematocrit 42.9% (39.0-53.0) Mean Corpuscular Volume 84fL (79-100) Mean Corpuscular Hemoglobin 27pg (25-35) Mean Corpuscular Hemoglobin Concent 32g/dL (31-37) Red Cell Distribution Width 15.7% (11.5-14.5) Platelet Count 361x10^3/uL (140-400) Neutrophils (%) (Auto) 87% (31-73) Lymphocytes (%) (Auto) 9% (24-48) Monocytes (%) (Auto) 3% (0-9) Eosinophils (%) (Auto) 1% (0-3) Basophils (%) (Auto) 1% (0-3) Neutrophils # (Auto) 13.6x10^3uL (1.8-7.7) Lymphocytes # (Auto) 1.4x10^3/uL (1.0-4.8) Monocytes # (Auto) 0.5x10^3/uL (0.0-1.1) Eosinophils # (Auto) 0.1x10^3/uL (0.0-0.7) Basophils # (Auto) 0.1x10^3/uL (0.0-0.2) Segmented Neutrophils % 93% (35-66) Band Neutrophils % 1% (0-9) Lymphocytes % 4% (24-48) Monocytes % 2% (0-10) Platelet Estimate Adequate (ADEQUATE) Sodium Level 126mmol/L (136-145) 130mmol/L (136-145) Potassium Level 3.8mmol/L (3.5-5.1) 3.5mmol/L (3.5-5.1) Chloride Level 87mmol/L (98-107) 91mmol/L (98-107) Carbon Dioxide Level 27mmol/L (21-32) 27mmol/L (21-32) Anion Gap 12 (6-14) 12 (6-14) Blood Urea Nitrogen 57mg/dL (8-26) 59mg/dL (8-26) Creatinine 2.0mg/dL (0.7-1.3) 1.6mg/dL (0.7-1.3) Estimated GFR (Cockcroft-Gault) 34.9 45.1 BUN/Creatinine Ratio 29 (6-20) Glucose Level 379mg/dL (70-99) 195mg/dL (70-99) Calcium Level 8.1mg/dL (8.5-10.1) 7.8mg/dL (8.5-10.1) Total Bilirubin 0.7mg/dL (0.2-1.0) Aspartate Amino Transf (AST/SGOT) 55U/L (15-37) Alanine Aminotransferase (ALT/SGPT) 50U/L (16-63) Alkaline Phosphatase 107U/L (46-116) Troponin I Quantitative < 0.017ng/mL (0.000-0.055) Total Protein 6.6g/dL (6.4-8.2) Albumin 1.8g/dL (3.4-5.0) Albumin/Globulin Ratio 0.4 (1.0-1.7) Lipase 396U/L (73-393) Urine Collection Type Unknown Urine Color Flory Urine Clarity Cloudy Urine pH 5.0 Urine Specific [place] 1.015 Urine Protein Negativemg/dL (NEG-TRACE) Urine Glucose (UA) 250mg/dL (NEG) Urine Ketones (Stick) Negativemg/dL (NEG) Urine Blood Moderate (NEG) Urine Nitrite Negative (NEG) Urine Bilirubin Small (NEG) Urine Urobilinogen Dipstick 1.0mg/dL (0.2 mg/dL) Urine Leukocyte Esterase Large (NEG) Urine RBC 11-20/HPF (0-2) Urine WBC Tntc/HPF (0-4) Urine Squamous Epithelial Cells Mod/LPF Urine Amorphous Sediment Present/HPF Urine Bacteria Many/HPF (0-FEW) Urine Mucus Mod/LPF Glucose (Fingerstick) 294mg/dL (70-99) Test 07/10/16 07:15 07/10/16 11:27 Glucose (Fingerstick) 209mg/dL (70-99) 249mg/dL (70-99) Laboratory Tests Test 07/09/16 18:50 07/09/16 20:25 07/09/16 21:33 07/10/16 03:45 White Blood Count 15.7x10^3/uL (4.0-11.0) Red Blood Count 5.11x10^6/uL (4.30-5.70) Hemoglobin 13.9g/dL (13.0-17.5) Hematocrit 42.9% (39.0-53.0) Mean Corpuscular Volume 84fL (79-100) Mean Corpuscular Hemoglobin 27pg (25-35) Mean Corpuscular Hemoglobin Concent 32g/dL (31-37) Red Cell Distribution Width 15.7% (11.5-14.5) Platelet Count 361x10^3/uL (140-400) Neutrophils (%) (Auto) 87% (31-73) Lymphocytes (%) (Auto) 9% (24-48) Monocytes (%) (Auto) 3% (0-9) Eosinophils (%) (Auto) 1% (0-3) Basophils (%) (Auto) 1% (0-3) Neutrophils # (Auto) 13.6x10^3uL (1.8-7.7) Lymphocytes # (Auto) 1.4x10^3/uL (1.0-4.8) Monocytes # (Auto) 0.5x10^3/uL (0.0-1.1) Eosinophils # (Auto) 0.1x10^3/uL (0.0-0.7) Basophils # (Auto) 0.1x10^3/uL (0.0-0.2) Segmented Neutrophils % 93% (35-66) Band Neutrophils % 1% (0-9) Lymphocytes % 4% (24-48) Monocytes % 2% (0-10) Platelet Estimate Adequate (ADEQUATE) Sodium Level 126mmol/L (136-145) 130mmol/L (136-145) Potassium Level 3.8mmol/L (3.5-5.1) 3.5mmol/L (3.5-5.1) Chloride Level 87mmol/L (98-107) 91mmol/L (98-107) Carbon Dioxide Level 27mmol/L (21-32) 27mmol/L (21-32) Anion Gap 12 (6-14) 12 (6-14) Blood Urea Nitrogen 57mg/dL (8-26) 59mg/dL (8-26) Creatinine 2.0mg/dL (0.7-1.3) 1.6mg/dL (0.7-1.3) Estimated GFR (Cockcroft-Gault) 34.9 45.1 BUN/Creatinine Ratio 29 (6-20) Glucose Level 379mg/dL (70-99) 195mg/dL (70-99) Calcium Level 8.1mg/dL (8.5-10.1) 7.8mg/dL (8.5-10.1) Total Bilirubin 0.7mg/dL (0.2-1.0) Aspartate Amino Transf (AST/SGOT) 55U/L (15-37) Alanine Aminotransferase (ALT/SGPT) 50U/L (16-63) Alkaline Phosphatase 107U/L (46-116) Troponin I Quantitative < 0.017ng/mL (0.000-0.055) Total Protein 6.6g/dL (6.4-8.2) Albumin 1.8g/dL (3.4-5.0) Albumin/Globulin Ratio 0.4 (1.0-1.7) Lipase 396U/L (73-393) Urine Collection Type Unknown Urine Color Flory Urine Clarity Cloudy Urine pH 5.0 Urine Specific [place] 1.015 Urine Protein Negativemg/dL (NEG-TRACE) Urine Glucose (UA) 250mg/dL (NEG) Urine Ketones (Stick) Negativemg/dL (NEG) Urine Blood Moderate (NEG) Urine Nitrite Negative (NEG) Urine Bilirubin Small (NEG) Urine Urobilinogen Dipstick 1.0mg/dL (0.2 mg/dL) Urine Leukocyte Esterase Large (NEG) Urine RBC 11-20/HPF (0-2) Urine WBC Tntc/HPF (0-4) Urine Squamous Epithelial Cells Mod/LPF Urine Amorphous Sediment Present/HPF Urine Bacteria Many/HPF (0-FEW) Urine Mucus Mod/LPF Glucose (Fingerstick) 294mg/dL (70-99) Test 2/18/17 07:15 07/10/16 11:27 Glucose (Fingerstick) 209mg/dL (70-99) 249mg/dL (70-99) Images Images Indication pain. A single view of the chest was obtained. No prior imaging is available. The heart, pulmonary vessels and mediastinum appear unremarkable. A focal infiltrate is not seen. There is no significant pleural fluid or pneumothorax. There is a nodule in the left lower lobe. Comparison with any old films or follow-up imaging assessing stability is advised. The findings and recommendations were communicated to Nessa, one of the nurses in the emergency room, at the time of dictation IMPRESSION: No acute finding. Nodule in the left lung. Comparison with old films or follow-up imaging advised LINDSEY HELMS MD Jul 10, 2016 14:03
[2016-07-10] MEDS: HEPARIN PF for SUB-Q USE 5,000 UNIT/0.5 ML VIAL. SQ SCH ×2 (14:13→21:55)
[2016-07-10] MEDS: ACETAMINOPHEN 325 MG TABLET. PO PRN (21:47)
[2016-07-11] MEDS: IV NORMAL SALINE 1000ML BAG 1,000 ML IV SCH ×4 (01:36→18:53)
[2016-07-11] MEDS: DIPHENHYDRAMINE 50 MG/ML VIAL IVP PRN ×3 (01:36→22:02)
[2016-07-11] MEDS: LORAZEPAM 2 MG/ML VIAL IV PRN (01:36)
[2016-07-11 03:30] VITALS: BP 99/59
[2016-07-11 04:39] LABS: BASO # 0.1 x10^3/uL (0.0-0.2); BASO % 1 % (0-3); EOS % 0 % (0-3); HEMATOCRIT 40.7 % (39.0-53.0); HEMOGLOBIN 13.2 g/dL (13.0-17.5); LYMPH % 5 % (24-48); MEAN CORPUSCULAR HEMOGLOBIN 28 pg (25-35); MEAN CORPUSCULAR HGB CONC 33 g/dL (31-37); MEAN CORPUSCULAR VOLUME 85 fL (79-100); MONO % 4 % (0-9); NEUT % 91 % (31-73); PLATELET COUNT 360 x10^3/uL (140-400); RED BLOOD COUNT 4.79 x10^6/uL (4.30-5.70); RED CELL DISTRIBUTION WIDTH 15.5 % (11.5-14.5); WHITE BLOOD COUNT 19.5 x10^3/uL (4.0-11.0)
[2016-07-11 05:00] LABS: MAGNESIUM 2.1 mg/dL (1.8-2.4)
[2016-07-11 05:01] LABS: ALBUMIN 1.3 g/dL (3.4-5.0); ALBUMIN/GLOBULIN RATIO 0.3 (1.0-1.7); CALCIUM 7.6 mg/dL (8.5-10.1); CREATININE 1.5 mg/dL (0.7-1.3); GFR 48.6; PHOSPHORUS 3.6 mg/dL (2.6-4.7); POTASSIUM 3.7 mmol/L (3.5-5.1); TOTAL BILIRUBIN 0.8 mg/dL (0.2-1.0); TOTAL PROTEIN 5.3 g/dL (6.4-8.2)
[2016-07-11] MEDS: HEPARIN PF for SUB-Q USE 5,000 UNIT/0.5 ML VIAL. SQ SCH ×2 (05:33→14:02)
[2016-07-11 07:07] VITALS: BP 110/55
--- NOTE | 2016-07-11 08:04 | CONS ---
DATE OF CONSULTATION: REASON FOR CONSULTATION: Acute renal failure. HISTORY OF PRESENT ILLNESS: The patient is a pleasant 55-year-old gentleman who apparently has been ill for the last 3 to 4 weeks. He had a cortisone shot to his knee. He claims it spiked his sugars really high. He thereafter also developed flu-like symptoms and has been extremely weak, fatigued and tired. He has had some nausea, vomiting, abdominal discomfort. Denies fevers or chills per se. He claims he was unable to keep his food down. He was seen in the ER approximately a week ago, was given IV fluids and sent home. His creatinine was normal at that time. He claims his sugars were running occasionally as high as 600. He was unable to keep his oral hypoglycemic agents down, represented to the ER for further evaluation. At presentation, he was noted to be hyponatremic with a sodium of 126, albumin of 1.8, lipase of 396. His sodium is up to 130 with sugars running in the low . We were asked to see him for further evaluation for his elevated creatinine of 2.0 at presentation as well as other electrolyte abnormalities. For rest of the details, please see electronic renal consult note. LINDSEY HELMS MD DR: KAVIN/luke JOB#: [id number] / [id number]
[2016-07-11] MEDS: GUAIFENESIN ER 600 MG TABLET.ER PO SCH ×2 (08:11→21:00)
[2016-07-11] MEDS: INSULIN ASPART 300 UNITS/3 ML INSULN.PEN SQ SCH ×5 (08:13→17:21)
[2016-07-11 10:55] VITALS: BP 117/59
[2016-07-11] MEDS: HYDROCODONE/APAP 5/325MG TABLET. PO PRN ×2 (10:56→22:02)
--- NOTE | 2016-07-11 12:17 | PDOC ---
SUBJECTIVE ROS NELIDA feels like bugs are crawling all over him - still very weak, feels paranoid CVS: no Orthopnea, no CP RESP: no SOB, no FRIAS GI: no Nausea, no Vomiting : no Dysuria, no Urgency OBJECTIVE Vital Signs Vital Signs Date Time Temp Pulse Resp B/P Pulse Ox O2 Delivery O2 Flow Rate FiO2 07/11/16 11:56 18 94 Nasal Cannula 2.0 07/11/16 10:55 99.0 104 117/59 99.0 I & 0 Intake and Output 07/11/16 07:00 Intake Total 880 ml Output Total 2000 ml Balance -1120 ml Intake Oral 780 ml IV Total 100 ml Output Urine Total 2000 ml # Voids 1 PHYSICAL EXAM Physical Exam General Appearance: Awake Alert Oriented x 3 In no Distress Eyes: VIsion Unchanged Conjunctiva Normal EN: No EN Drainage Mucous Memb. dryish Neck: no JVD no JVP Supple no Thyromegaly CVS: S1 S2 no Murmur No Gallop No Rub no Edema Resp: no Rales no Rhonchi no Acc. Muscle use GI: BAS +ve NO Bruit Non Tender Non Distended : no CVA tenderness; no Suprapubic Tenderness SKIN: no Rashes Breast Exam deferred Mu.Sk: Adequate ROM no Muscle Atrophy Heme: Unable to palpate Obvious LAD no Splenomegaly NEURO: Good Strength and Tone Cranial Nerves II - XII grossly intact Psych: ? Depressed no Active hallucination Assessment & Plan NELIDA - suspect due to Sev VMN - some Better with IVF. Current FLuid and E- lyte status does not necessitate emergent need for Dialysis. CK WNL despit dark colored urine and discrepancy of RBCs to Blood. Pt now agrees to renal US so rodered HypoNatremia - due to NV and Vol depletion besides some PseudoHypoNatremia from Ch ^ ed FSBS - better now, ct IVF and use IV Alb too SEv. Vol depletion - IVf as ordered Oliguria- Improving with iVf as ordered Poorly controlled DM - as noted by A1c; sees Dr Diana as OP Pancreatitis - ? due to Dehydration and poorly controlled DM-2; recheck Lipase for trend Low grd fevers - watch trend; WBC is up too Sev Hypoalbuminemia - suspect due to Poor PO intake over the last few months HTN: Current BP meds reviewed. See orders for changes. Discussed Plan of Care and prognosis etc. at length with family () COMMENT/RELEVANT DATA Meds Current Medications Medications (Trade) Dose Ordered Sig/Luisito Start Time Stop Time Status Last Admin Dose Admin Acetaminophen (Tylenol) 650 mg PRN Q6HRS PRN 07/10/16 13:00 07/10/16 21:47 650 MG Acetaminophen/ Hydrocodone Bitart (Lortab 5/325) 1 tab PRN Q6HRS PRN 07/10/16 13:00 07/11/16 10:56 1 TAB Albuterol Sulfate 2.5 mg 2.5 mg PRN Q4HRS PRN 07/09/16 21:00 Alprazolam (Xanax) 0.5 mg PRN Q8HRS PRN 07/10/16 13:00 07/10/16 23:29 0.5 MG Dextrose 12.5 gm 12.5 gm PRN Q15MIN PRN 07/09/16 21:00 Diphenhydramine HCl (Benadryl) 25 mg PRN Q6HRS PRN 07/11/16 01:30 07/11/16 01:36 25 MG Guaifenesin (Mucinex) 600 mg BID 07/09/16 21:00 07/11/16 08:11 600 MG Heparin Sodium (Porcine) 5000 unit 5,000 unit Q8HRS 07/10/16 14:00 07/10/16 14:13 5,000 UNIT Hydromorphone HCl (Dilaudid) 1 mg 1X ONCE 07/09/16 19:30 07/09/16 19:31 DC 07/09/16 19:33 1 MG Insulin Aspart (Novolog) 0-9 UNITS TIDWMEALS 07/10/16 08:00 07/11/16 12:03 9 UNITS Levofloxacin/ Dextrose (LEVAQUIN 500mg PREMIX) 100 ml @ 100 mls/hr Q24H 07/09/16 22:00 07/10/16 21:48 100 MLS/HR Lorazepam (Ativan) 2 mg PRN Q4HRS PRN 07/11/16 01:30 07/11/16 01:36 2 MG Magnesium Sulfate/ Dextrose (Magnesium Sulfate PREMIX 2GM) 50 ml @ 25 mls/hr PRN DAILY PRN 07/10/16 14:00 Morphine Sulfate 4 mg PRN Q2HR PRN 07/09/16 20:30 07/10/16 13:00 DC 07/10/16 06:36 4 MG Ondansetron HCl (Zofran) 4 mg PRN Q6HRS PRN 07/09/16 21:00 Sodium Chloride (Iv Sodium Chloride 0.9% 1000ml Bag) 1,000 ml @ 0 mls/hr 1X ONCE 07/10/16 10:30 07/10/16 10:31 DC 07/10/16 10:27 990 MLS/HR Lab Laboratory Tests Test 07/10/16 16:06 07/10/16 20:36 07/11/16 03:45 07/11/16 07:13 Glucose (Fingerstick) 238mg/dL (70-99) 182mg/dL (70-99) 250mg/dL (70-99) White Blood Count 19.5x10^3/uL (4.0-11.0) Red Blood Count 4.79x10^6/uL (4.30-5.70) Hemoglobin 13.2g/dL (13.0-17.5) Hematocrit 40.7% (39.0-53.0) Mean Corpuscular Volume 85fL (79-100) Mean Corpuscular Hemoglobin 28pg (25-35) Mean Corpuscular Hemoglobin Concent 33g/dL (31-37) Red Cell Distribution Width 15.5% (11.5-14.5) Platelet Count 360x10^3/uL (140-400) Neutrophils (%) (Auto) 91% (31-73) Lymphocytes (%) (Auto) 5% (24-48) Monocytes (%) (Auto) 4% (0-9) Eosinophils (%) (Auto) 0% (0-3) Basophils (%) (Auto) 1% (0-3) Neutrophils # (Auto) 17.7x10^3uL (1.8-7.7) Lymphocytes # (Auto) 1.0x10^3/uL (1.0-4.8) Monocytes # (Auto) 0.7x10^3/uL (0.0-1.1) Eosinophils # (Auto) 0.0x10^3/uL (0.0-0.7) Basophils # (Auto) 0.1x10^3/uL (0.0-0.2) Sodium Level 133mmol/L (136-145) Potassium Level 3.7mmol/L (3.5-5.1) Chloride Level 98mmol/L (98-107) Carbon Dioxide Level 24mmol/L (21-32) Anion Gap 11 (6-14) Blood Urea Nitrogen 57mg/dL (8-26) Creatinine 1.5mg/dL (0.7-1.3) Estimated GFR (Cockcroft-Gault) 48.6 BUN/Creatinine Ratio 38 (6-20) Glucose Level 201mg/dL (70-99) Calcium Level 7.6mg/dL (8.5-10.1) Phosphorus Level 3.6mg/dL (2.6-4.7) Magnesium Level 2.1mg/dL (1.8-2.4) Total Bilirubin 0.8mg/dL (0.2-1.0) Aspartate Amino Transf (AST/SGOT) 54U/L (15-37) Alanine Aminotransferase (ALT/SGPT) 35U/L (16-63) Alkaline Phosphatase 116U/L (46-116) Creatine Kinase 28U/L (39-308) Total Protein 5.3g/dL (6.4-8.2) Albumin 1.3g/dL (3.4-5.0) Albumin/Globulin Ratio 0.3 (1.0-1.7) Test 07/11/16 11:44 Glucose (Fingerstick) 309mg/dL (70-99) LINDSEY HELMS MD Jul 11, 2016 12:17
--- NOTE | 2016-07-11 12:28 | PDOC ---
PROGRESS NOTES Chief Complaint Chief Complaint 1. DM 2 uncontrolled with hgba1c of 11 2. NELIDA possibly on top of CKD, POA, improving 3. Hyponatremia: improving. cont IVF 4. LLL lung nodule: CT? 5. Acute Bronchitis: 7. Recent S.epi UTI: sens to levaquin 8. Hypoalbuminemia: severe, in BMI 38. 9. 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 Donovan Albumin only 1.8 WBC 19 from 15 today Creatinine stable/improved at 1.5 from 2.0 on NS 150cc.hr by renal PLAN: Get podiatry - toe nail clipping and monofilament testing Get GET Check TSH and cortisol NUtrition consult - severe PCM (albumin 1,.8) Start levemir 25 qhs and novolog 10 TID, cont high dose SSi MOntior leukocytosis no nephrotoxic agents Consult physiatry - aches and pains, can check ESR and CPK COnsider CTscan WITHOUT contrast (further evaluate LL lung spiculated nodule) dw dtr and RN Vitals Vitals Vital Signs Date Time Temp Pulse Resp B/P Pulse Ox O2 Delivery O2 Flow Rate FiO2 07/11/16 11:56 18 94 Nasal Cannula 2.0 07/11/16 10:55 99.0 104 117/59 99.0 Physical Exam General: Alert, Oriented X3, Cooperative, No acute distress Heart: Regular rate Lungs: Clear Abdomen: Normal bowel sounds, Soft, No tenderness Extremities: No clubbing, No edema Skin: No rashes Labs LABS Laboratory Tests Test 07/10/16 16:06 07/10/16 20:36 07/11/16 03:45 07/11/16 07:13 Glucose (Fingerstick) 238mg/dL (70-99) 182mg/dL (70-99) 250mg/dL (70-99) White Blood Count 19.5x10^3/uL (4.0-11.0) Red Blood Count 4.79x10^6/uL (4.30-5.70) Hemoglobin 13.2g/dL (13.0-17.5) Hematocrit 40.7% (39.0-53.0) Mean Corpuscular Volume 85fL (79-100) Mean Corpuscular Hemoglobin 28pg (25-35) Mean Corpuscular Hemoglobin Concent 33g/dL (31-37) Red Cell Distribution Width 15.5% (11.5-14.5) Platelet Count 360x10^3/uL (140-400) Neutrophils (%) (Auto) 91% (31-73) Lymphocytes (%) (Auto) 5% (24-48) Monocytes (%) (Auto) 4% (0-9) Eosinophils (%) (Auto) 0% (0-3) Basophils (%) (Auto) 1% (0-3) Neutrophils # (Auto) 17.7x10^3uL (1.8-7.7) Lymphocytes # (Auto) 1.0x10^3/uL (1.0-4.8) Monocytes # (Auto) 0.7x10^3/uL (0.0-1.1) Eosinophils # (Auto) 0.0x10^3/uL (0.0-0.7) Basophils # (Auto) 0.1x10^3/uL (0.0-0.2) Sodium Level 133mmol/L (136-145) Potassium Level 3.7mmol/L (3.5-5.1) Chloride Level 98mmol/L (98-107) Carbon Dioxide Level 24mmol/L (21-32) Anion Gap 11 (6-14) Blood Urea Nitrogen 57mg/dL (8-26) Creatinine 1.5mg/dL (0.7-1.3) Estimated GFR (Cockcroft-Gault) 48.6 BUN/Creatinine Ratio 38 (6-20) Glucose Level 201mg/dL (70-99) Calcium Level 7.6mg/dL (8.5-10.1) Phosphorus Level 3.6mg/dL (2.6-4.7) Magnesium Level 2.1mg/dL (1.8-2.4) Total Bilirubin 0.8mg/dL (0.2-1.0) Aspartate Amino Transf (AST/SGOT) 54U/L (15-37) Alanine Aminotransferase (ALT/SGPT) 35U/L (16-63) Alkaline Phosphatase 116U/L (46-116) Creatine Kinase 28U/L (39-308) Total Protein 5.3g/dL (6.4-8.2) Albumin 1.3g/dL (3.4-5.0) Albumin/Globulin Ratio 0.3 (1.0-1.7) Test 07/11/16 11:44 Glucose (Fingerstick) 309mg/dL (70-99) Review of Systems Review of Systems aches and pain,s nausea, emesis, constipation, weak, Assessment and Plan Assessmemt and Plan Problems Medical Problems: (1) Acute renal injury Status: Acute (2) Dehydration Status: Acute (3) Hyponatremia Status: Acute (4) Nausea & vomiting Status: Acute (5) Uncontrolled diabetes mellitus Status: Acute Problems: Comment Review of Relevant I have reviewed the following items madison (where applicable) has been applied. Labs Laboratory Tests Test 07/09/16 18:50 07/09/16 20:25 07/09/16 21:33 07/10/16 03:45 White Blood Count 15.7x10^3/uL (4.0-11.0) Red Blood Count 5.11x10^6/uL (4.30-5.70) Hemoglobin 13.9g/dL (13.0-17.5) Hematocrit 42.9% (39.0-53.0) Mean Corpuscular Volume 84fL (79-100) Mean Corpuscular Hemoglobin 27pg (25-35) Mean Corpuscular Hemoglobin Concent 32g/dL (31-37) Red Cell Distribution Width 15.7% (11.5-14.5) Platelet Count 361x10^3/uL (140-400) Neutrophils (%) (Auto) 87% (31-73) Lymphocytes (%) (Auto) 9% (24-48) Monocytes (%) (Auto) 3% (0-9) Eosinophils (%) (Auto) 1% (0-3) Basophils (%) (Auto) 1% (0-3) Neutrophils # (Auto) 13.6x10^3uL (1.8-7.7) Lymphocytes # (Auto) 1.4x10^3/uL (1.0-4.8) Monocytes # (Auto) 0.5x10^3/uL (0.0-1.1) Eosinophils # (Auto) 0.1x10^3/uL (0.0-0.7) Basophils # (Auto) 0.1x10^3/uL (0.0-0.2) Segmented Neutrophils % 93% (35-66) Band Neutrophils % 1% (0-9) Lymphocytes % 4% (24-48) Monocytes % 2% (0-10) Platelet Estimate Adequate (ADEQUATE) Sodium Level 126mmol/L (136-145) 130mmol/L (136-145) Potassium Level 3.8mmol/L (3.5-5.1) 3.5mmol/L (3.5-5.1) Chloride Level 87mmol/L (98-107) 91mmol/L (98-107) Carbon Dioxide Level 27mmol/L (21-32) 27mmol/L (21-32) Anion Gap 12 (6-14) 12 (6-14) Blood Urea Nitrogen 57mg/dL (8-26) 59mg/dL (8-26) Creatinine 2.0mg/dL (0.7-1.3) 1.6mg/dL (0.7-1.3) Estimated GFR (Cockcroft-Gault) 34.9 45.1 BUN/Creatinine Ratio 29 (6-20) Glucose Level 379mg/dL (70-99) 195mg/dL (70-99) Calcium Level 8.1mg/dL (8.5-10.1) 7.8mg/dL (8.5-10.1) Total Bilirubin 0.7mg/dL (0.2-1.0) Aspartate Amino Transf (AST/SGOT) 55U/L (15-37) Alanine Aminotransferase (ALT/SGPT) 50U/L (16-63) Alkaline Phosphatase 107U/L (46-116) Troponin I Quantitative < 0.017ng/mL (0.000-0.055) Total Protein 6.6g/dL (6.4-8.2) Albumin 1.8g/dL (3.4-5.0) Albumin/Globulin Ratio 0.4 (1.0-1.7) Lipase 396U/L (73-393) Urine Collection Type Unknown Urine Color Flory Urine Clarity Cloudy Urine pH 5.0 Urine Specific Doland 1.015 Urine Protein Negativemg/dL (NEG-TRACE) Urine Glucose (UA) 250mg/dL (NEG) Urine Ketones (Stick) Negativemg/dL (NEG) Urine Blood Moderate (NEG) Urine Nitrite Negative (NEG) Urine Bilirubin Small (NEG) Urine Urobilinogen Dipstick 1.0mg/dL (0.2 mg/dL) Urine Leukocyte Esterase Large (NEG) Urine RBC 11-20/HPF (0-2) Urine WBC Tntc/HPF (0-4) Urine Squamous Epithelial Cells Mod/LPF Urine Amorphous Sediment Present/HPF Urine Bacteria Many/HPF (0-FEW) Urine Mucus Mod/LPF Glucose (Fingerstick) 294mg/dL (70-99) Hemoglobin A1c 11.8% (4.8-5.6) Test 07/10/16 07:15 07/10/16 11:27 07/10/16 16:06 07/10/16 20:36 Glucose (Fingerstick) 209mg/dL (70-99) 249mg/dL (70-99) 238mg/dL (70-99) 182mg/dL (70-99) Test 07/11/16 03:45 07/11/16 07:13 07/11/16 11:44 White Blood Count 19.5x10^3/uL (4.0-11.0) Red Blood Count 4.79x10^6/uL (4.30-5.70) Hemoglobin 13.2g/dL (13.0-17.5) Hematocrit 40.7% (39.0-53.0) Mean Corpuscular Volume 85fL (79-100) Mean Corpuscular Hemoglobin 28pg (25-35) Mean Corpuscular Hemoglobin Concent 33g/dL (31-37) Red Cell Distribution Width 15.5% (11.5-14.5) Platelet Count 360x10^3/uL (140-400) Neutrophils (%) (Auto) 91% (31-73) Lymphocytes (%) (Auto) 5% (24-48) Monocytes (%) (Auto) 4% (0-9) Eosinophils (%) (Auto) 0% (0-3) Basophils (%) (Auto) 1% (0-3) Neutrophils # (Auto) 17.7x10^3uL (1.8-7.7) Lymphocytes # (Auto) 1.0x10^3/uL (1.0-4.8) Monocytes # (Auto) 0.7x10^3/uL (0.0-1.1) Eosinophils # (Auto) 0.0x10^3/uL (0.0-0.7) Basophils # (Auto) 0.1x10^3/uL (0.0-0.2) Sodium Level 133mmol/L (136-145) Potassium Level 3.7mmol/L (3.5-5.1) Chloride Level 98mmol/L (98-107) Carbon Dioxide Level 24mmol/L (21-32) Anion Gap 11 (6-14) Blood Urea Nitrogen 57mg/dL (8-26) Creatinine 1.5mg/dL (0.7-1.3) Estimated GFR (Cockcroft-Gault) 48.6 BUN/Creatinine Ratio 38 (6-20) Glucose Level 201mg/dL (70-99) Calcium Level 7.6mg/dL (8.5-10.1) Phosphorus Level 3.6mg/dL (2.6-4.7) Magnesium Level 2.1mg/dL (1.8-2.4) Total Bilirubin 0.8mg/dL (0.2-1.0) Aspartate Amino Transf (AST/SGOT) 54U/L (15-37) Alanine Aminotransferase (ALT/SGPT) 35U/L (16-63) Alkaline Phosphatase 116U/L (46-116) Creatine Kinase 28U/L (39-308) Total Protein 5.3g/dL (6.4-8.2) Albumin 1.3g/dL (3.4-5.0) Albumin/Globulin Ratio 0.3 (1.0-1.7) Glucose (Fingerstick) 250mg/dL (70-99) 309mg/dL (70-99) Laboratory Tests Test 07/10/16 16:06 07/10/16 20:36 07/11/16 03:45 07/11/16 07:13 Glucose (Fingerstick) 238mg/dL (70-99) 182mg/dL (70-99) 250mg/dL (70-99) White Blood Count 19.5x10^3/uL (4.0-11.0) Red Blood Count 4.79x10^6/uL (4.30-5.70) Hemoglobin 13.2g/dL (13.0-17.5) Hematocrit 40.7% (39.0-53.0) Mean Corpuscular Volume 85fL (79-100) Mean Corpuscular Hemoglobin 28pg (25-35) Mean Corpuscular Hemoglobin Concent 33g/dL (31-37) Red Cell Distribution Width 15.5% (11.5-14.5) Platelet Count 360x10^3/uL (140-400) Neutrophils (%) (Auto) 91% (31-73) Lymphocytes (%) (Auto) 5% (24-48) Monocytes (%) (Auto) 4% (0-9) Eosinophils (%) (Auto) 0% (0-3) Basophils (%) (Auto) 1% (0-3) Neutrophils # (Auto) 17.7x10^3uL (1.8-7.7) Lymphocytes # (Auto) 1.0x10^3/uL (1.0-4.8) Monocytes # (Auto) 0.7x10^3/uL (0.0-1.1) Eosinophils # (Auto) 0.0x10^3/uL (0.0-0.7) Basophils # (Auto) 0.1x10^3/uL (0.0-0.2) Sodium Level 133mmol/L (136-145) Potassium Level 3.7mmol/L (3.5-5.1) Chloride Level 98mmol/L (98-107) Carbon Dioxide Level 24mmol/L (21-32) Anion Gap 11 (6-14) Blood Urea Nitrogen 57mg/dL (8-26) Creatinine 1.5mg/dL (0.7-1.3) Estimated GFR (Cockcroft-Gault) 48.6 BUN/Creatinine Ratio 38 (6-20) Glucose Level 201mg/dL (70-99) Calcium Level 7.6mg/dL (8.5-10.1) Phosphorus Level 3.6mg/dL (2.6-4.7) Magnesium Level 2.1mg/dL (1.8-2.4) Total Bilirubin 0.8mg/dL (0.2-1.0) Aspartate Amino Transf (AST/SGOT) 54U/L (15-37) Alanine Aminotransferase (ALT/SGPT) 35U/L (16-63) Alkaline Phosphatase 116U/L (46-116) Creatine Kinase 28U/L (39-308) Total Protein 5.3g/dL (6.4-8.2) Albumin 1.3g/dL (3.4-5.0) Albumin/Globulin Ratio 0.3 (1.0-1.7) Test 07/11/16 11:44 Glucose (Fingerstick) 309mg/dL (70-99) Medications Current Medications Sodium Chloride (Iv Sodium Chloride 0.9% 1000ml Bag) 1,000 ml @ 1,000 mls/hr Q1H IV Last administered on 07/09/16 19:34; Start 07/09/16 at 19:18; Stop at 20:17; Status DC Hydromorphone HCl (Dilaudid) 2 mg 1X ONCE IV ; Start 07/09/16 at 19:30; Stop at 19:30; Status DC Ondansetron HCl (Zofran) 4 mg 1X ONCE IV Last administered on 07/09/16 19:33 ; Start 07/09/16 at 19:30; Stop 07/09/16 at 19:31; Status DC Hydromorphone HCl (Dilaudid) 1 mg 1X ONCE IV Last administered on 07/09/16 19 :33; Start 07/09/16 at 19:30; Stop 07/09/16 at 19:31; Status DC Ondansetron HCl (Zofran) 4 mg PRN Q8HRS PRN IV NAUSEA/VOMITING; Start 07/09/16 at 20:30; Stop 07/09/16 at 21:00; Status DC Morphine Sulfate 4 mg 4 mg PRN Q2HR PRN IV PAIN Last administered on 07/10/16 06:36; Start 07/09/16 at 20:30; Stop 07/10/16 at 13:00; Status DC Sodium Chloride (Iv Sodium Chloride 0.9% 1000ml Bag) 1,000 ml @ 150 mls/hr Q6H40M IV Last administered on 07/09/16 20:41; Start 07/09/16 at 20:24; Stop 07/10/16 at 15:29; Status DC Acetaminophen (Tylenol) 650 mg PRN Q4HRS PRN PO FEVER; Start 07/09/16 at 20:30 ; Stop 07/09/16 at 21:00; Status DC Acetaminophen (Tylenol) 650 mg PRN Q6HRS PRN PO FEVER; Start 07/09/16 at 21:00 ; Stop 07/10/16 at 15:28; Status DC Ondansetron HCl 4 mg 4 mg PRN Q6HRS PRN IV NAUSEA/VOMITING; Start 07/09/16 at 21:00 Sodium Chloride (Iv Sodium Chloride 0.9% 1000ml Bag) 1,000 ml @ 150 mls/hr Q6H40M IV Last administered on 07/11/16 08:11; Start 07/09/16 at 21:00 Insulin Aspart (Novolog) 0-9 UNITS TIDWMEALS SQ Last administered on 07/11/16 12:03; Start 07/10/16 at 08:00 Dextrose 12.5 gm 12.5 gm PRN Q15MIN PRN IV SEE COMMENTS; Start 07/09/16 at 21: 00 Levofloxacin/ Dextrose (LEVAQUIN 500mg PREMIX) 100 ml @ 100 mls/hr Q24H IV Last administered on 07/10/16 21:48; Start 07/09/16 at 22:00 Guaifenesin (Mucinex) 600 mg BID PO Last administered on 07/11/16 08:11; Start 07/09/16 at 21:00 Albuterol Sulfate 2.5 mg 2.5 mg PRN Q4HRS PRN NEB SHORTNESS OF BREATH; Start at 21:00 Sodium Chloride (Iv Sodium Chloride 0.9% 1000ml Bag) 1,000 ml @ 0 mls/hr 1X ONCE IV Last administered on 07/10/16 10:27; Start 07/10/16 at 10:30; Stop at 10:31; Status DC Alprazolam (Xanax) 0.5 mg PRN Q8HRS PRN PO ANXIETY / AGITATION Last administered on 07/10/16 23:29; Start 07/10/16 at 13:00 Acetaminophen/ Hydrocodone Bitart (Lortab 5/325) 1 tab PRN Q6HRS PRN PO MODERATE - SEVERE PAIN Last administered on 07/11/16 10:56; Start 07/10/16 at 13:00 Acetaminophen (Tylenol) 650 mg PRN Q6HRS PRN PO MILD PAIN / TEMP Last administered on 07/10/16 21:47; Start 07/10/16 at 13:00 Heparin Sodium (Porcine) 5000 unit 5,000 unit Q8HRS SQ Last administered on 14:13; Start 07/10/16 at 14:00 Magnesium Sulfate/ Dextrose (Magnesium Sulfate PREMIX 2GM) 50 ml @ 25 mls/hr PRN DAILY PRN IV for Mag < 1.7 on am labs; Start 07/10/16 at 14:00 Diphenhydramine HCl (Benadryl) 25 mg PRN Q6HRS PRN IVP ITCHING Last administered on 07/11/16 01:36; Start 07/11/16 at 01:30 Lorazepam 2 mg 2 mg PRN Q4HRS PRN IV ANXIETY / AGITATION Last administered on 01:36; Start 07/11/16 at 01:30 Albumin Human (Albuminar) 100 ml @ 100 mls/hr TID IV ; Start 07/11/16 at 14:00 ; Stop 07/13/16 at 09:59 Active Scripts Active Phenergan (Promethazine HCl) 25 Mg Supp.rect 25 Mg RC Q8HRS PRN Zofran Odt (Ondansetron) 4 Mg Tab.rapdis 1 Tab SL Q8HRS PRN Vitals/I & O Vital Sign - Last 24 Hours 07/10/16 07/10/16 07/10/16 07/10/16 13:36 15:00 19:39 19:44 Temp 98.4 99.2 99.5 98.4 99.2 99.5 Pulse 103 105 103 Resp 20 20 22 B/P 101/46 87/50 98/57 Pulse Ox 92 97 99 O2 Delivery Room Air Room Air Room Air Nasal Cannula O2 Flow Rate 2.0 2/07/10/16 07/11/16 07/11/16 19:46 22:46 03:30 07:07 Temp 100.2 99.5 98.8 100.2 99.5 98.8 Pulse 105 109 111 Resp B/P 108/52 99/59 110/55 Pulse Ox 96 93 94 O2 Delivery Nasal Cannula Room Air Room Air Room Air O2 Flow Rate 2.0 2.0 07/11/16 07/11/16 07/11/16 07/11/16 07:30 10:55 10:56 11:56 Temp 99.0 99.0 Pulse 104 Resp B/P 117/59 Pulse Ox 95 94 94 O2 Delivery Nasal Cannula Room Air Room Air Nasal Cannula O2 Flow Rate 2.0 2.0 Intake and Output 07/10/16 07/10/16 07/11/16 15:00 23:00 07:00 Intake Total 180 ml 280 ml 420 ml Output Total 1050 ml 950 ml Balance 180 ml -770 ml -530 ml GERALDO SANABRIA MD Jul 11, 2016 12:28
--- NOTE | 2016-07-11 13:43 | RAD ---
Indication acute renal insufficiency. Grayscale imaging was performed. Examination was targeted to the kidneys. No similar imaging is available. The examination is somewhat limited by virtue of gas. The right kidney measures approximately 12.6 x 6 x 6.5 cm and appears unremarkable. No hydronephrosis or mass is seen. The left kidney measures 12.4 x 5.7 x 8.2 cm and appears unremarkable also showing no evidence of hydronephrosis or mass. The urinary bladder is is not well distended but grossly normal. IMPRESSION: No significant finding seen associated with either kidney
[2016-07-11] MEDS: ALBUMIN HUMAN 25% 100 ML IV SCH (14:00)
[2016-07-11] MEDS: ALPRAZOLAM 0.5 MG TABLET PO PRN (14:04)
[2016-07-11 14:53] VITALS: BP 101/58
--- NOTE | 2016-07-11 16:02 | RAD ---
Indication evaluate nodule seen on plain film. Noncontrast imaging through the chest was performed. Note is made of a plain film examination of the chest 2 days earlier demonstrating a nodule in the left lower lobe. Imaging through the upper abdomen shows no acute or definite significant finding. There is a low-density mass partially visualized probably associated with the left kidney or adrenal gland measuring 6.3 cm in greatest dimension. It may represent a cyst. Hounsfield unit numbers are, however, quite low. An adrenal adenoma myolipoma or a renal angiomyolipoma would be additional considerations. The finding is of doubtful clinical significance. Significant hilar or mediastinal adenopathy is not seen. There is some coronary artery calcification. There are some calcified subcarinal lymph nodes. Consistent with the finding on plain film is a well-defined 13 mm nodule in the left lower lobe. A spiculated mass or additional parenchymal mass in either lung is not seen. There is some slight volume loss in the left lower lobe likely reflecting atelectasis and there may be a trace amount of left pleural fluid. IMPRESSION: Well-defined 13 mm nodule in the left lower lobe. Follow-up along the lines of the Fleischner criteria should be considered. Low-density mass in the left upper abdomen partially visualized. This may represent a renal cyst. Hounsfield unit numbers are quite low however. An adrenal adenoma myolipoma or angiomyolipoma are not excluded. The finding is likely incidental. Nodules detected incidentally at non-screening CT Nodule size (mm) less than or equal to 4 Low Risk patients- no follow-up needed High Risk patients- follow-up at 12 months and if no change, no further imaging needed. Nodule size > 4-6 mm Low risk patients- follow- up at 12 months and if no change, no further imaging needed High risk patients- initial follow-up CT at 6-12 months and then at 18-24 months if no change. Nodule Size > 6-8 mm Low risk patients- initial follow-up CT at 6-12 months and then at 18-24 months if no change. High risk patients- initial follow- up CT at 3-6 months and then at 9-12 months if no change, Nodule Size >8 mm Either low or high risk patients: Follow-up CT at around 3, 9 and 24 [address], PET, and/or biopsy Note: newly detected indeterminate nodule in person 35 years of age or older. Low risk patients- minimal or absent history of smoking and/or other known risk factors. High risk patients- history of smoking or of other known risk factors. PQRS Compliance Statement: One or more of the following individualized dose reduction techniques were utilized for this examination: 1. Automated exposure control 2. Adjustment of the mA and/or kV according to patient size 3. Use of iterative reconstruction technique
[2016-07-11 19:00] VITALS: BP 109/63
[2016-07-11] MEDS ORDERED: INSULIN DETEMIR 300 UNITS/3 ML INSULN.PEN. SQ SCH (21:00)
--- NOTE | 2016-07-11 22:16 | RAD ---
PROCEDURE Bilateral upper extremity venous Doppler sonogram. HISTORY Pain. TECHNIQUE Grayscale and color Doppler sonographic imaging of the upper extremity veins with spectral waveform analysis was performed. COMPARISON None. FINDINGS The exam is significantly limited due to immobility and body habitus. There is suggestion of thrombus surrounding a catheter within the right cephalic vein. This is difficult to assess given overlying bandage material. There is thrombus within the left basilic vein from the mid upper arm to the mid forearm. There is normal color flow, normal compressibility and there are normal spectral waveforms within the remainder of the upper extremity veins. IMPRESSION 1. Left basilic venous thrombosis from the mid upper arm to the mid forearm. 2. Suggestion of thrombus within the right cephalic vein surrounding a peripheral catheter. This is difficult to confirm given overlying bandage material. Electronically signed by: Rebecca Harris (Jul 11, 2016 22:15:18)
[2016-07-11 23:00] VITALS: BP 106/55
[2016-07-11] MEDS ORDERED: HEPARIN for IV BOLUS 10,000 UNIT/10 ML VIAL. IV PRN (23:00)
--- NOTE | 2016-07-11 23:14 | RAD ---
INDICATION: Arm pain with hyperventilation with concern for embolus TECHNIQUE: Five mCi of Tc99m MAA administered intravenously and perfusion images obtained. Twelve mCi of Xe-133 administered and ventilation images obtained. COMPARISON: Chest x-ray July 09, 2016 FINDINGS: There is patchy defects seen in the perfusion images. The ventilation images are very poor quality therefore cannot adequately assess whether all of the defects are matched. IMPRESSION: Patchy defects are seen on the perfusion images which is a very commonly seen finding. The ventilation images are very poor quality therefore cannot assess whether all of these defects are matched or not. Overall intermediate probability secondary to this limitation. Electronically signed by: Cirilo Nicole (Jul 11, 2016 23:12:10)
[2016-07-11 23:22] LABS: HEMATOCRIT 34.3 % (39.0-53.0); HEMOGLOBIN 11.2 g/dL (13.0-17.5); RED BLOOD COUNT 4.07 x10^6/uL (4.30-5.70); RED CELL DISTRIBUTION WIDTH 15.6 % (11.5-14.5); WHITE BLOOD COUNT 13.8 x10^3/uL (4.0-11.0)
[2016-07-11 23:33] LABS: INR 1.3 (0.8-1.1); PROTHROMBIN TIME PATIENT 15.4 SEC (11.7-14.0)
[2016-07-12] MEDS ORDERED: WARFARIN 5 MG TABLET. PO ONE (00:15)
[2016-07-12] MEDS ORDERED: HEPARIN for IV BOLUS 10,000 UNIT/10 ML VIAL. IV ONE (01:15)
[2016-07-12] MEDS: ANTI-COAG MONITOR BY PHARMACY. MC PRN (01:37)
[2016-07-12] MEDS: ALBUMIN HUMAN 25% 100 ML IV SCH ×4 (01:45→20:57)
[2016-07-12] MEDS: HEPARIN 25,000UTS/500ML PREMIX 500 ML IV PRN ×2 (01:49→15:00)
[2016-07-12] MEDS: ALPRAZOLAM 0.5 MG TABLET PO PRN (01:50)
[2016-07-12] MEDS: IV NORMAL SALINE 1000ML BAG 1,000 ML IV SCH ×4 (02:50→22:26)
[2016-07-12 03:00] VITALS: BP 119/61
[2016-07-12 04:56] LABS: BASO # 0.1 x10^3/uL (0.0-0.2); BASO % 0 % (0-3); EOS % 0 % (0-3); HEMATOCRIT 33.4 % (39.0-53.0); HEMOGLOBIN 10.7 g/dL (13.0-17.5); LYMPH % 14 % (24-48); MEAN CORPUSCULAR HEMOGLOBIN 27 pg (25-35); MEAN CORPUSCULAR HGB CONC 32 g/dL (31-37); MEAN CORPUSCULAR VOLUME 85 fL (79-100); MONO % 4 % (0-9); NEUT % 81 % (31-73); PLATELET COUNT 337 x10^3/uL (140-400); RED BLOOD COUNT 3.91 x10^6/uL (4.30-5.70); RED CELL DISTRIBUTION WIDTH 15.5 % (11.5-14.5); WHITE BLOOD COUNT 14.7 x10^3/uL (4.0-11.0)
[2016-07-12 05:39] LABS: ALBUMIN 1.9 g/dL (3.4-5.0); CALCIUM 7.8 mg/dL (8.5-10.1); CREATININE 0.9 mg/dL (0.7-1.3); GFR 87.6; MAGNESIUM 2.3 mg/dL (1.8-2.4); PHOSPHORUS 2.8 mg/dL (2.6-4.7); POTASSIUM 3.7 mmol/L (3.5-5.1)
[2016-07-12 07:00] VITALS: BP 122/61
--- NOTE | 2016-07-12 07:23 | RAD ---
Bilateral shoulders, 6 views, 07/11/2016: History: Shoulder pain There is moderate degenerative change at the right AC joint. On the left there is moderate spurring at the glenohumeral and acromioclavicular articulations. No fracture or dislocation is identified. The periarticular soft tissues are unremarkable. IMPRESSION: 1. Mild to moderate degenerative change, left greater than right. 2. No acute bony abnormality is detected.
[2016-07-12] MEDS: GUAIFENESIN ER 600 MG TABLET.ER PO SCH ×2 (08:41→21:01)
[2016-07-12] MEDS: INSULIN ASPART 300 UNITS/3 ML INSULN.PEN SQ SCH ×6 (08:46→17:28)
[2016-07-12] MEDS ORDERED: TRAMADOL 50 MG TABLET. PO ONE (10:15)
[2016-07-12] MEDS ORDERED: TRAMADOL 50 MG TABLET. PO PRN (10:15)
--- NOTE | 2016-07-12 10:17 | PDOC ---
PROGRESS NOTES Chief Complaint Chief Complaint 1. DM 2 uncontrolled with hgba1c of 11 2. NELIDA - vasomotor, improving 3. Hyponatremia: improving. cont IVF 4. LLL lung nodule: CT showed spickulated nodue, PULM consult 5. Acute Bronchitis: 7. Recent S.epi UTI: sens to levaquin 8. Hypoalbuminemia: severe, in BMI 38. 9. Acute on chronic pain, History of Present Illness History of Present Illness CT SCAN chest: Well-defined 13 mm nodule in the left lower lobe. Follow-up along the lines of the Fleischner criteria should be considered. ongoing arm pain today, diffuse myalgia, a little better Minimal ambulation Long toe nails, making ambulation difficult Dm x 30 yrs, hgba1c 11 (07/09) PCP Dr. Donovan Albumin still only 1.8 levemir 25 qhs and novolog 10 TID, cont high dose SSi Vitals Vitals Vital Signs Date Time Temp Pulse Resp B/P Pulse Ox O2 Delivery O2 Flow Rate FiO2 07/12/16 07:00 98.8 110 18 122/61 95 Nasal Cannula 2.0 98.8 Physical Exam General: Alert, Oriented X3, Cooperative, No acute distress Heart: Regular rate Lungs: Clear Abdomen: Normal bowel sounds, Soft, No tenderness Extremities: No clubbing, No edema Skin: No rashes Labs LABS Laboratory Tests Test 07/11/16 11:44 07/11/16 16:12 07/11/16 19:30 07/11/16 21:38 Glucose (Fingerstick) 309mg/dL (70-99) 241mg/dL (70-99) 178mg/dL (70-99) Lactic Acid Level 2.1mmol/L (0.4-2.0) Test 07/11/16 23:15 07/12/16 03:50 07/12/16 07:19 White Blood Count 13.8x10^3/uL (4.0-11.0) 14.7x10^3/uL (4.0-11.0) Red Blood Count 4.07x10^6/uL (4.30-5.70) 3.91x10^6/uL (4.30-5.70) Hemoglobin 11.2g/dL (13.0-17.5) 10.7g/dL (13.0-17.5) Hematocrit 34.3% (39.0-53.0) 33.4% (39.0-53.0) Mean Corpuscular Volume 84fL (79-100) 85fL (79-100) Mean Corpuscular Hemoglobin 28pg (25-35) 27pg (25-35) Mean Corpuscular Hemoglobin Concent 33g/dL (31-37) 32g/dL (31-37) Red Cell Distribution Width 15.6% (11.5-14.5) 15.5% (11.5-14.5) Platelet Count 366x10^3/uL (140-400) 337x10^3/uL (140-400) Prothrombin Time 15.4SEC (11.7-14.0) Prothromb Time International Ratio 1.3 (0.8-1.1) Activated Partial Thromboplast Time 37SEC (24-38) Neutrophils (%) (Auto) 81% (31-73) Lymphocytes (%) (Auto) 14% (24-48) Monocytes (%) (Auto) 4% (0-9) Eosinophils (%) (Auto) 0% (0-3) Basophils (%) (Auto) 0% (0-3) Neutrophils # (Auto) 12.0x10^3uL (1.8-7.7) Lymphocytes # (Auto) 2.0x10^3/uL (1.0-4.8) Monocytes # (Auto) 0.6x10^3/uL (0.0-1.1) Eosinophils # (Auto) 0.1x10^3/uL (0.0-0.7) Basophils # (Auto) 0.1x10^3/uL (0.0-0.2) Sodium Level 134mmol/L (136-145) Potassium Level 3.7mmol/L (3.5-5.1) Chloride Level 99mmol/L (98-107) Carbon Dioxide Level 26mmol/L (21-32) Anion Gap 9 (6-14) Blood Urea Nitrogen 30mg/dL (8-26) Creatinine 0.9mg/dL (0.7-1.3) Estimated GFR (Cockcroft-Gault) 87.6 Glucose Level 241mg/dL (70-99) Calcium Level 7.8mg/dL (8.5-10.1) Phosphorus Level 2.8mg/dL (2.6-4.7) Magnesium Level 2.3mg/dL (1.8-2.4) Creatine Kinase 23U/L (39-308) Albumin 1.9g/dL (3.4-5.0) Thyroid Stimulating Hormone (TSH) 1.484uIU/mL (0.358-3.74) Glucose (Fingerstick) 241mg/dL (70-99) Assessment and Plan Assessmemt and Plan PULM consulted DVT UE, on Heparin gtt, may change to lovenox as renal improved pain control, tramadol, physiatry was consulted Problems Medical Problems: (1) Acute renal injury Status: Acute (2) Dehydration Status: Acute (3) Hyponatremia Status: Acute (4) Nausea & vomiting Status: Acute (5) Uncontrolled diabetes mellitus Status: Acute Problems: Comment Review of Relevant I have reviewed the following items madison (where applicable) has been applied. Labs Laboratory Tests Test 07/10/16 11:27 07/10/16 16:06 07/10/16 20:36 07/11/16 03:45 Glucose (Fingerstick) 249mg/dL (70-99) 238mg/dL (70-99) 182mg/dL (70-99) White Blood Count 19.5x10^3/uL (4.0-11.0) Red Blood Count 4.79x10^6/uL (4.30-5.70) Hemoglobin 13.2g/dL (13.0-17.5) Hematocrit 40.7% (39.0-53.0) Mean Corpuscular Volume 85fL (79-100) Mean Corpuscular Hemoglobin 28pg (25-35) Mean Corpuscular Hemoglobin Concent 33g/dL (31-37) Red Cell Distribution Width 15.5% (11.5-14.5) Platelet Count 360x10^3/uL (140-400) Neutrophils (%) (Auto) 91% (31-73) Lymphocytes (%) (Auto) 5% (24-48) Monocytes (%) (Auto) 4% (0-9) Eosinophils (%) (Auto) 0% (0-3) Basophils (%) (Auto) 1% (0-3) Neutrophils # (Auto) 17.7x10^3uL (1.8-7.7) Lymphocytes # (Auto) 1.0x10^3/uL (1.0-4.8) Monocytes # (Auto) 0.7x10^3/uL (0.0-1.1) Eosinophils # (Auto) 0.0x10^3/uL (0.0-0.7) Basophils # (Auto) 0.1x10^3/uL (0.0-0.2) Sodium Level 133mmol/L (136-145) Potassium Level 3.7mmol/L (3.5-5.1) Chloride Level 98mmol/L (98-107) Carbon Dioxide Level 24mmol/L (21-32) Anion Gap 11 (6-14) Blood Urea Nitrogen 57mg/dL (8-26) Creatinine 1.5mg/dL (0.7-1.3) Estimated GFR (Cockcroft-Gault) 48.6 BUN/Creatinine Ratio 38 (6-20) Glucose Level 201mg/dL (70-99) Calcium Level 7.6mg/dL (8.5-10.1) Phosphorus Level 3.6mg/dL (2.6-4.7) Magnesium Level 2.1mg/dL (1.8-2.4) Total Bilirubin 0.8mg/dL (0.2-1.0) Aspartate Amino Transf (AST/SGOT) 54U/L (15-37) Alanine Aminotransferase (ALT/SGPT) 35U/L (16-63) Alkaline Phosphatase 116U/L (46-116) Creatine Kinase 28U/L (39-308) Total Protein 5.3g/dL (6.4-8.2) Albumin 1.3g/dL (3.4-5.0) Albumin/Globulin Ratio 0.3 (1.0-1.7) Lipase 221U/L (73-393) Test 07/11/16 07:13 07/11/16 11:44 07/11/16 16:12 07/11/16 19:30 Glucose (Fingerstick) 250mg/dL (70-99) 309mg/dL (70-99) 241mg/dL (70-99) Lactic Acid Level 2.1mmol/L (0.4-2.0) Test 07/11/16 21:38 07/11/16 23:15 07/12/16 03:50 07/12/16 07:19 Glucose (Fingerstick) 178mg/dL (70-99) 241mg/dL (70-99) White Blood Count 13.8x10^3/uL (4.0-11.0) 14.7x10^3/uL (4.0-11.0) Red Blood Count 4.07x10^6/uL (4.30-5.70) 3.91x10^6/uL (4.30-5.70) Hemoglobin 11.2g/dL (13.0-17.5) 10.7g/dL (13.0-17.5) Hematocrit 34.3% (39.0-53.0) 33.4% (39.0-53.0) Mean Corpuscular Volume 84fL (79-100) 85fL (79-100) Mean Corpuscular Hemoglobin 28pg (25-35) 27pg (25-35) Mean Corpuscular Hemoglobin Concent 33g/dL (31-37) 32g/dL (31-37) Red Cell Distribution Width 15.6% (11.5-14.5) 15.5% (11.5-14.5) Platelet Count 366x10^3/uL (140-400) 337x10^3/uL (140-400) Prothrombin Time 15.4SEC (11.7-14.0) Prothromb Time International Ratio 1.3 (0.8-1.1) Activated Partial Thromboplast Time 37SEC (24-38) Neutrophils (%) (Auto) 81% (31-73) Lymphocytes (%) (Auto) 14% (24-48) Monocytes (%) (Auto) 4% (0-9) Eosinophils (%) (Auto) 0% (0-3) Basophils (%) (Auto) 0% (0-3) Neutrophils # (Auto) 12.0x10^3uL (1.8-7.7) Lymphocytes # (Auto) 2.0x10^3/uL (1.0-4.8) Monocytes # (Auto) 0.6x10^3/uL (0.0-1.1) Eosinophils # (Auto) 0.1x10^3/uL (0.0-0.7) Basophils # (Auto) 0.1x10^3/uL (0.0-0.2) Sodium Level 134mmol/L (136-145) Potassium Level 3.7mmol/L (3.5-5.1) Chloride Level 99mmol/L (98-107) Carbon Dioxide Level 26mmol/L (21-32) Anion Gap 9 (6-14) Blood Urea Nitrogen 30mg/dL (8-26) Creatinine 0.9mg/dL (0.7-1.3) Estimated GFR (Cockcroft-Gault) 87.6 Glucose Level 241mg/dL (70-99) Calcium Level 7.8mg/dL (8.5-10.1) Phosphorus Level 2.8mg/dL (2.6-4.7) Magnesium Level 2.3mg/dL (1.8-2.4) Creatine Kinase 23U/L (39-308) Albumin 1.9g/dL (3.4-5.0) Thyroid Stimulating Hormone (TSH) 1.484uIU/mL (0.358-3.74) Laboratory Tests Test 07/11/16 11:44 07/11/16 16:12 07/11/16 19:30 07/11/16 21:38 Glucose (Fingerstick) 309mg/dL (70-99) 241mg/dL (70-99) 178mg/dL (70-99) Lactic Acid Level 2.1mmol/L (0.4-2.0) Test 07/11/16 23:15 07/12/16 03:50 07/12/16 07:19 White Blood Count 13.8x10^3/uL (4.0-11.0) 14.7x10^3/uL (4.0-11.0) Red Blood Count 4.07x10^6/uL (4.30-5.70) 3.91x10^6/uL (4.30-5.70) Hemoglobin 11.2g/dL (13.0-17.5) 10.7g/dL (13.0-17.5) Hematocrit 34.3% (39.0-53.0) 33.4% (39.0-53.0) Mean Corpuscular Volume 84fL (79-100) 85fL (79-100) Mean Corpuscular Hemoglobin 28pg (25-35) 27pg (25-35) Mean Corpuscular Hemoglobin Concent 33g/dL (31-37) 32g/dL (31-37) Red Cell Distribution Width 15.6% (11.5-14.5) 15.5% (11.5-14.5) Platelet Count 366x10^3/uL (140-400) 337x10^3/uL (140-400) Prothrombin Time 15.4SEC (11.7-14.0) Prothromb Time International Ratio 1.3 (0.8-1.1) Activated Partial Thromboplast Time 37SEC (24-38) Neutrophils (%) (Auto) 81% (31-73) Lymphocytes (%) (Auto) 14% (24-48) Monocytes (%) (Auto) 4% (0-9) Eosinophils (%) (Auto) 0% (0-3) Basophils (%) (Auto) 0% (0-3) Neutrophils # (Auto) 12.0x10^3uL (1.8-7.7) Lymphocytes # (Auto) 2.0x10^3/uL (1.0-4.8) Monocytes # (Auto) 0.6x10^3/uL (0.0-1.1) Eosinophils # (Auto) 0.1x10^3/uL (0.0-0.7) Basophils # (Auto) 0.1x10^3/uL (0.0-0.2) Sodium Level 134mmol/L (136-145) Potassium Level 3.7mmol/L (3.5-5.1) Chloride Level 99mmol/L (98-107) Carbon Dioxide Level 26mmol/L (21-32) Anion Gap 9 (6-14) Blood Urea Nitrogen 30mg/dL (8-26) Creatinine 0.9mg/dL (0.7-1.3) Estimated GFR (Cockcroft-Gault) 87.6 Glucose Level 241mg/dL (70-99) Calcium Level 7.8mg/dL (8.5-10.1) Phosphorus Level 2.8mg/dL (2.6-4.7) Magnesium Level 2.3mg/dL (1.8-2.4) Creatine Kinase 23U/L (39-308) Albumin 1.9g/dL (3.4-5.0) Thyroid Stimulating Hormone (TSH) 1.484uIU/mL (0.358-3.74) Glucose (Fingerstick) 241mg/dL (70-99) Microbiology 07/09/16 Urine Culture - Preliminary, Resulted 07/09/16 Urine Culture Result 1 (EMILI) - Preliminary, Resulted Medications Current Medications Sodium Chloride (Iv Sodium Chloride 0.9% 1000ml Bag) 1,000 ml @ 1,000 mls/hr Q1H IV Last administered on 07/09/16 19:34; Start 07/09/16 at 19:18; Stop at 20:17; Status DC Hydromorphone HCl (Dilaudid) 2 mg 1X ONCE IV ; Start 07/09/16 at 19:30; Stop at 19:30; Status DC Ondansetron HCl (Zofran) 4 mg 1X ONCE IV Last administered on 07/09/16 19:33 ; Start 07/09/16 at 19:30; Stop 07/09/16 at 19:31; Status DC Hydromorphone HCl (Dilaudid) 1 mg 1X ONCE IV Last administered on 07/09/16 19 :33; Start 07/09/16 at 19:30; Stop 07/09/16 at 19:31; Status DC Ondansetron HCl (Zofran) 4 mg PRN Q8HRS PRN IV NAUSEA/VOMITING; Start 07/09/16 at 20:30; Stop 07/09/16 at 21:00; Status DC Morphine Sulfate 4 mg 4 mg PRN Q2HR PRN IV PAIN Last administered on 07/10/16 06:36; Start 07/09/16 at 20:30; Stop 07/10/16 at 13:00; Status DC Sodium Chloride (Iv Sodium Chloride 0.9% 1000ml Bag) 1,000 ml @ 150 mls/hr Q6H40M IV Last administered on 07/09/16 20:41; Start 07/09/16 at 20:24; Stop 07/10/16 at 15:29; Status DC Acetaminophen (Tylenol) 650 mg PRN Q4HRS PRN PO FEVER; Start 07/09/16 at 20:30 ; Stop 07/09/16 at 21:00; Status DC Acetaminophen (Tylenol) 650 mg PRN Q6HRS PRN PO FEVER; Start 07/09/16 at 21:00 ; Stop 07/10/16 at 15:28; Status DC Ondansetron HCl 4 mg 4 mg PRN Q6HRS PRN IV NAUSEA/VOMITING; Start 07/09/16 at 21:00 Sodium Chloride (Iv Sodium Chloride 0.9% 1000ml Bag) 1,000 ml @ 150 mls/hr Q6H40M IV Last administered on 07/12/16 02:50; Start 07/09/16 at 21:00 Insulin Aspart (Novolog) 0-9 UNITS TIDWMEALS SQ Last administered on 07/12/16 08:47; Start 07/10/16 at 08:00 Dextrose 12.5 gm 12.5 gm PRN Q15MIN PRN IV SEE COMMENTS; Start 07/09/16 at 21: 00 Levofloxacin/ Dextrose (LEVAQUIN 500mg PREMIX) 100 ml @ 100 mls/hr Q24H IV Last administered on 07/12/16 02:49; Start 07/09/16 at 22:00 Guaifenesin (Mucinex) 600 mg BID PO Last administered on 07/12/16 08:41; Start 07/09/16 at 21:00 Albuterol Sulfate 2.5 mg 2.5 mg PRN Q4HRS PRN NEB SHORTNESS OF BREATH; Start at 21:00 Sodium Chloride (Iv Sodium Chloride 0.9% 1000ml Bag) 1,000 ml @ 0 mls/hr 1X ONCE IV Last administered on 07/10/16 10:27; Start 07/10/16 at 10:30; Stop at 10:31; Status DC Alprazolam (Xanax) 0.5 mg PRN Q8HRS PRN PO ANXIETY / AGITATION Last administered on 07/12/16 01:50; Start 07/10/16 at 13:00 Acetaminophen/ Hydrocodone Bitart (Lortab 5/325) 1 tab PRN Q6HRS PRN PO MODERATE - SEVERE PAIN Last administered on 07/11/16 22:02; Start 07/10/16 at 13:00 Acetaminophen (Tylenol) 650 mg PRN Q6HRS PRN PO MILD PAIN / TEMP Last administered on 07/10/16 21:47; Start 07/10/16 at 13:00 Heparin Sodium (Porcine) 5000 unit 5,000 unit Q8HRS SQ Last administered on 14:02; Start 07/10/16 at 14:00; Stop 07/11/16 at 22:55; Status DC Magnesium Sulfate/ Dextrose (Magnesium Sulfate PREMIX 2GM) 50 ml @ 25 mls/hr PRN DAILY PRN IV for Mag < 1.7 on am labs; Start 07/10/16 at 14:00 Diphenhydramine HCl (Benadryl) 25 mg PRN Q6HRS PRN IVP ITCHING Last administered on 07/11/16 22:02; Start 07/11/16 at 01:30 Lorazepam 2 mg 2 mg PRN Q4HRS PRN IV ANXIETY / AGITATION Last administered on 01:36; Start 07/11/16 at 01:30 Albumin Human (Albuminar) 100 ml @ 100 mls/hr TID IV Last administered on 07/12 08:42; Start 07/11/16 at 14:00; Stop 07/13/16 at 09:59 Insulin Aspart (Novolog) 10 units TIDAC SQ Last administered on 07/12/16 08:46 ; Start 07/11/16 at 12:30; Stop 07/12/16 at 09:17; Status DC Insulin Detemir 25 units 25 units QHS SQ Last administered on 07/12/16 01:48; Start 07/11/16 at 21:00; Stop 07/12/16 at 09:17; Status DC Heparin Sodium/ Dextrose 500 ml @ 0 mls/hr CONT PRN IV SEE I/O RECORD Last administered on 07/12/16 01:49; Start 07/11/16 at 23:00 Heparin Sodium (Porcine) 3,800 unit PRN Q6HRS PRN IV FOR UFH LEVEL LESS THAN 0.2; Start 07/11/16 at 23:00 Heparin Sodium (Porcine) 1,900 unit PRN Q6HRS PRN IV FOR UFH LEVEL 0.2 - 0.29; Start 07/11/16 at 23:00 Warfarin Sodium (Coumadin Per Pharmacy) 1 each PRN DAILY PRN MC PER PROTOCOL Last administered on 07/12/16 01:36; Start 07/11/16 at 23:00 Warfarin Sodium (Coumadin) 5 mg 1X ONCE PO Last administered on 07/12/16 01: 45; Start 07/12/16 at 00:15; Stop 07/12/16 at 00:16; Status DC Info (Anti-Coagulation Monitoring By Pharmacy) 1 each PRN DAILY PRN MC SEE COMMENTS Last administered on 07/12/16 01:37; Start 07/11/16 at 23:45 Heparin Sodium (Porcine) 10,000 unit 1X ONCE IV Last administered on 01:48; Start 07/12/16 at 01:15; Stop 07/12/16 at 01:16; Status DC Insulin Aspart (Novolog) 12 units TIDAC SQ ; Start 07/12/16 at 11:30 Insulin Detemir (Levemir) 30 units QHS SQ ; Start 07/12/16 at 21:00 Active Scripts Active Phenergan (Promethazine HCl) 25 Mg Supp.rect 25 Mg RC Q8HRS PRN Zofran Odt (Ondansetron) 4 Mg Tab.rapdis 1 Tab SL Q8HRS PRN Vitals/I & O Vital Sign - Last 24 Hours 07/11/16 07/11/16 07/11/16 07/11/16 10:55 10:56 11:56 14:53 Temp 99.0 97.9 99.0 97.9 Pulse 104 104 Resp 20 20 B/P 117/59 101/58 Pulse Ox 95 94 98 O2 Delivery Room Air Room Air Room Air 07/11/16 07/11/16 07/11/16 07/11/16 19:00 20:00 23:00 23:00 Temp 99.0 99.7 99.0 99.7 Pulse 115 110 Resp 20 B/P 109/63 106/55 Pulse Ox 93 91 91 O2 Delivery Room Air Room Air Nasal Cannula Room Air O2 Flow Rate 2.0 07/12/16 07/12/16 03:00 07:00 Temp 98.8 98.8 98.8 98.8 Pulse 105 110 Resp 20 18 B/P 119/61 122/61 Pulse Ox 91 95 O2 Delivery Room Air Nasal Cannula O2 Flow Rate 2.0 Intake and Output 07/11/16 07/11/16 07/12/16 15:00 23:00 07:00 Intake Total 300 ml 400 ml 0 ml Output Total 775 ml 800 ml Balance -475 ml 400 ml -800 ml XENIA MARLOW MD Jul 12, 2016 10:17
[2016-07-12] MEDS ORDERED: methylPREDNISolone ACETATE 40 MG/ML VIAL. IM ONE (10:30)
[2016-07-12] MEDS ORDERED: HYDROMORPHONE 2 MG/ML VIAL. IV ONE (10:30)
[2016-07-12] MEDS ORDERED: BUPIVACAINE MPF 0.25% 10 ML VIAL. IJ ONE (10:30)
--- NOTE | 2016-07-12 10:50 | PDOC ---
SUBJECTIVE ROS NELIDA Doing a little better today CVS: no Orthopnea, no CP RESP: no SOB, no FRIAS GI: no Nausea, no Vomiting : n Dysuria, jama Urgency OBJECTIVE Vital Signs Vital Signs Date Time Temp Pulse Resp B/P Pulse Ox O2 Delivery O2 Flow Rate FiO2 07/12/16 08:00 Room Air 07/12/16 07:00 98.8 110 18 122/61 95 2.0 98.8 I & 0 Intake and Output 07/12/16 07:00 Intake Total 700 ml Output Total 1575 ml Balance -875 ml Intake Oral 700 ml Output Urine Total 1575 ml PHYSICAL EXAM Physical Exam General Appearance: Awake Alert Oriented x 3 In no Distress Eyes: VIsion Unchanged Conjunctiva Normal EN: No EN Drainage Mucous Memb. dryish Neck: no JVD no JVP Supple no Thyromegaly CVS: S1 S2 no Murmur No Gallop No Rub no Edema Resp: no Rales no Rhonchi no Acc. Muscle use GI: BAS +ve NO Bruit Non Tender Non Distended : no CVA tenderness; no Suprapubic Tenderness Assessment & Plan NELIDA - suspect due to Sev VMN - much Better with IVF. Pt feels better with IVF and would like to ct for another day. May need PPN/ TPN -if PO intake remains marginal HypoNatremia - much improved wtih Isotonic IVF Pancreatitis - ? ^ed lipase due to Dehydration and poorly controlled DM-2; recheck Lipase is WNL Low grd fevers - watch trend; WBC is up too - ID to see Sev Hypoalbuminemia - suspect due to Poor PO intake over the last few months - not noted to be Proteinuric per se by UA - U Pr/Cr Ratio is pending HTN: Current BP meds reviewed. See orders for changes. Discussed Plan of Care and prognosis etc. at length with family () COMMENT/RELEVANT DATA Meds Current Medications Medications (Trade) Dose Ordered Sig/Luisito Start Time Stop Time Status Last Admin Dose Admin Acetaminophen (Tylenol) 650 mg PRN Q6HRS PRN 07/10/16 13:00 07/10/16 21:47 650 MG Acetaminophen/ Hydrocodone Bitart (Lortab 5/325) 1 tab PRN Q6HRS PRN 07/10/16 13:00 07/11/16 22:02 1 TAB Albumin Human (Albuminar) 100 ml @ 100 mls/hr TID 2/19/17 14:00 07/13/16 09:59 07/12/16 08:42 100 MLS/HR Albuterol Sulfate 2.5 mg 2.5 mg PRN Q4HRS PRN 07/09/16 21:00 Alprazolam (Xanax) 0.5 mg PRN Q8HRS PRN 07/10/16 13:00 07/12/16 01:50 0.5 MG Bupivacaine HCl (Sensorcaine-Mpf 0.25%) 10 ml 1X ONCE 07/12/16 10:30 07/12/16 10:31 DC Cefazolin Sodium/ Sodium Chloride (Ancef/Iv Sodium Chloride 0.9% 50ml) 50 ml @ 100 mls/hr Q8HRS 07/12/16 11:00 UNV Dextrose 12.5 gm 12.5 gm PRN Q15MIN PRN 07/09/16 21:00 Diphenhydramine HCl (Benadryl) 25 mg PRN Q6HRS PRN 07/11/16 01:30 07/11/16 22:02 25 MG Guaifenesin (Mucinex) 600 mg BID 07/09/16 21:00 07/12/16 08:41 600 MG Heparin Sodium (Porcine) 10,000 unit 1X ONCE 07/12/16 01:15 07/12/16 01:16 DC 07/12/16 01:48 10,000 UNIT Heparin Sodium (Porcine) 5000 unit 5,000 unit Q8HRS 07/10/16 14:00 07/11/16 22:55 DC 07/11/16 14:02 5,000 UNIT Heparin Sodium/ Dextrose 500 ml @ 0 mls/hr CONT PRN 07/11/16 23:00 07/12/16 01:49 40 MLS/HR Hydromorphone HCl (Dilaudid) 1 mg 1X ONCE 07/09/16 19:30 07/09/16 19:31 DC 07/09/16 19:33 1 MG Hydromorphone HCl 1 mg 1 mg 1X ONCE 07/12/16 10:30 07/12/16 10:31 UNV Info (Anti-Coagulation Monitoring By Pharmacy) 1 each PRN DAILY PRN 07/11/16 23:45 07/12/16 01:37 1 EACH Insulin Aspart (Novolog) 12 units TIDAC 07/12/16 11:30 Insulin Detemir (Levemir) 30 units QHS 07/12/16 21:00 Insulin Detemir 25 units 25 units QHS 07/11/16 21:00 07/12/16 09:17 DC 07/12/16 01:48 25 UNITS Levofloxacin/ Dextrose (LEVAQUIN 500mg PREMIX) 100 ml @ 100 mls/hr Q24H 07/09/16 22:00 07/12/16 10:37 DC 07/12/16 02:49 100 MLS/HR Lorazepam 2 mg 2 mg PRN Q4HRS PRN 07/11/16 01:30 07/11/16 01:36 2 MG Magnesium Sulfate/ Dextrose (Magnesium Sulfate PREMIX 2GM) 50 ml @ 25 mls/hr PRN DAILY PRN 07/10/16 14:00 Methylprednisolone Acetate (Depo-Medrol 40mg Vial) 40 mg 1X ONCE 07/12/16 10:30 07/12/16 10:31 DC Morphine Sulfate 4 mg PRN Q2HR PRN 07/09/16 20:30 07/10/16 13:00 DC 07/10/16 06:36 4 MG Ondansetron HCl (Zofran) 4 mg PRN Q6HRS PRN 07/09/16 21:00 Sodium Chloride (Iv Sodium Chloride 0.9% 1000ml Bag) 1,000 ml @ 0 mls/hr 1X ONCE 07/10/16 10:30 07/10/16 10:31 DC 07/10/16 10:27 990 MLS/HR Tramadol HCl (Ultram) 50 mg 1X ONCE 07/12/16 10:15 07/12/16 10:29 DC Warfarin Sodium (Coumadin Per Pharmacy) 1 each PRN DAILY PRN 07/11/16 23:00 07/12/16 01:36 1 EACH Warfarin Sodium (Coumadin) 5 mg 1X ONCE 07/12/16 00:15 07/12/16 00:16 DC 07/12/16 01:45 5 MG Lab Laboratory Tests Test 07/11/16 11:44 07/11/16 16:12 07/11/16 19:30 07/11/16 21:38 Glucose (Fingerstick) 309mg/dL (70-99) 241mg/dL (70-99) 178mg/dL (70-99) Lactic Acid Level 2.1mmol/L (0.4-2.0) Test 07/11/16 23:15 07/12/16 03:50 07/12/16 07:19 07/12/16 09:40 White Blood Count 13.8x10^3/uL (4.0-11.0) 14.7x10^3/uL (4.0-11.0) Red Blood Count 4.07x10^6/uL (4.30-5.70) 3.91x10^6/uL (4.30-5.70) Hemoglobin 11.2g/dL (13.0-17.5) 10.7g/dL (13.0-17.5) Hematocrit 34.3% (39.0-53.0) 33.4% (39.0-53.0) Mean Corpuscular Volume 84fL (79-100) 85fL (79-100) Mean Corpuscular Hemoglobin 28pg (25-35) 27pg (25-35) Mean Corpuscular Hemoglobin Concent 33g/dL (31-37) 32g/dL (31-37) Red Cell Distribution Width 15.6% (11.5-14.5) 15.5% (11.5-14.5) Platelet Count 366x10^3/uL (140-400) 337x10^3/uL (140-400) Prothrombin Time 15.4SEC (11.7-14.0) Prothromb Time International Ratio 1.3 (0.8-1.1) Activated Partial Thromboplast Time 37SEC (24-38) Neutrophils (%) (Auto) 81% (31-73) Lymphocytes (%) (Auto) 14% (24-48) Monocytes (%) (Auto) 4% (0-9) Eosinophils (%) (Auto) 0% (0-3) Basophils (%) (Auto) 0% (0-3) Neutrophils # (Auto) 12.0x10^3uL (1.8-7.7) Lymphocytes # (Auto) 2.0x10^3/uL (1.0-4.8) Monocytes # (Auto) 0.6x10^3/uL (0.0-1.1) Eosinophils # (Auto) 0.1x10^3/uL (0.0-0.7) Basophils # (Auto) 0.1x10^3/uL (0.0-0.2) Sodium Level 134mmol/L (136-145) Potassium Level 3.7mmol/L (3.5-5.1) Chloride Level 99mmol/L (98-107) Carbon Dioxide Level 26mmol/L (21-32) Anion Gap 9 (6-14) Blood Urea Nitrogen 30mg/dL (8-26) Creatinine 0.9mg/dL (0.7-1.3) Estimated GFR (Cockcroft-Gault) 87.6 Glucose Level 241mg/dL (70-99) Calcium Level 7.8mg/dL (8.5-10.1) Phosphorus Level 2.8mg/dL (2.6-4.7) Magnesium Level 2.3mg/dL (1.8-2.4) Creatine Kinase 23U/L (39-308) Albumin 1.9g/dL (3.4-5.0) Thyroid Stimulating Hormone (TSH) 1.484uIU/mL (0.358-3.74) Glucose (Fingerstick) 241mg/dL (70-99) Heparin Anti-Xa Act, Unfractionated 0.10IU/mL (0.30-0.70) LINDSEY HELMS MD Jul 12, 2016 10:50
--- NOTE | 2016-07-12 10:50 | PDOC ---
Infectious Disease Note ROS ROS GEN: Denies fevers, chills, sweats HEENT: Denies blurred vision, sore throat CV: Denies chest pain RESP: Denies shortness of air, cough GI: Denies n/v/d NEURO: Denies confusion, dizziness MSK: Denies weakness, joint pain/swelling Vital Sign Vital Signs Vital Signs Date Time Temp Pulse Resp B/P Pulse Ox O2 Delivery O2 Flow Rate FiO2 07/12/16 07:00 98.8 110 18 122/61 95 Nasal Cannula 2.0 98.8 Physical Exam PHYSICAL EXAM GENERAL: NAD, Alert HEENT: PERRL, OC/OP NECK: Supple, no JVD, no LN LUNGS: Clear HEART: S1S2, no gallop, no murmur ABD: Soft, NT, no organomegaly, no rebound EXT: No edema, no cyanosis INTERVENTIONAL RADIOLOGY RN: Alert, oriented x 3, no focal neurologic deficit SKIN: No rash IV: ok Labs Lab Laboratory Tests Test 07/11/16 11:44 07/11/16 16:12 07/11/16 19:30 07/11/16 21:38 Glucose (Fingerstick) 309mg/dL (70-99) 241mg/dL (70-99) 178mg/dL (70-99) Lactic Acid Level 2.1mmol/L (0.4-2.0) Test 07/11/16 23:15 07/12/16 03:50 07/12/16 07:19 07/12/16 09:40 White Blood Count 13.8x10^3/uL (4.0-11.0) 14.7x10^3/uL (4.0-11.0) Red Blood Count 4.07x10^6/uL (4.30-5.70) 3.91x10^6/uL (4.30-5.70) Hemoglobin 11.2g/dL (13.0-17.5) 10.7g/dL (13.0-17.5) Hematocrit 34.3% (39.0-53.0) 33.4% (39.0-53.0) Mean Corpuscular Volume 84fL (79-100) 85fL (79-100) Mean Corpuscular Hemoglobin 28pg (25-35) 27pg (25-35) Mean Corpuscular Hemoglobin Concent 33g/dL (31-37) 32g/dL (31-37) Red Cell Distribution Width 15.6% (11.5-14.5) 15.5% (11.5-14.5) Platelet Count 366x10^3/uL (140-400) 337x10^3/uL (140-400) Prothrombin Time 15.4SEC (11.7-14.0) Prothromb Time International Ratio 1.3 (0.8-1.1) Activated Partial Thromboplast Time 37SEC (24-38) Neutrophils (%) (Auto) 81% (31-73) Lymphocytes (%) (Auto) 14% (24-48) Monocytes (%) (Auto) 4% (0-9) Eosinophils (%) (Auto) 0% (0-3) Basophils (%) (Auto) 0% (0-3) Neutrophils # (Auto) 12.0x10^3uL (1.8-7.7) Lymphocytes # (Auto) 2.0x10^3/uL (1.0-4.8) Monocytes # (Auto) 0.6x10^3/uL (0.0-1.1) Eosinophils # (Auto) 0.1x10^3/uL (0.0-0.7) Basophils # (Auto) 0.1x10^3/uL (0.0-0.2) Sodium Level 134mmol/L (136-145) Potassium Level 3.7mmol/L (3.5-5.1) Chloride Level 99mmol/L (98-107) Carbon Dioxide Level 26mmol/L (21-32) Anion Gap 9 (6-14) Blood Urea Nitrogen 30mg/dL (8-26) Creatinine 0.9mg/dL (0.7-1.3) Estimated GFR (Cockcroft-Gault) 87.6 Glucose Level 241mg/dL (70-99) Calcium Level 7.8mg/dL (8.5-10.1) Phosphorus Level 2.8mg/dL (2.6-4.7) Magnesium Level 2.3mg/dL (1.8-2.4) Creatine Kinase 23U/L (39-308) Albumin 1.9g/dL (3.4-5.0) Thyroid Stimulating Hormone (TSH) 1.484uIU/mL (0.358-3.74) Glucose (Fingerstick) 241mg/dL (70-99) Heparin Anti-Xa Act, Unfractionated 0.10IU/mL (0.30-0.70) Objective Assessment Fever Staph aureus in urine Shoulder pain and warmth ? Septic emboli in UE DM Obesity Pulm nodule ? Incidental mass in abd Plan Plan of Care D/c Levoflox Begin Cefazolin MRI left shoulder and neck Sed rate/Uric acid F/u blood cults Needs ECHO Diluadid times one - Primary for further pain management May need hypercoaguable w/u D/w Thank you # [id number] MELA JAIMES MD Jul 12, 2016 10:49
[2016-07-12] MEDS ORDERED: CEFAZOLIN SODIUM IV SCH (11:00)
[2016-07-12] MEDS ORDERED: NORMAL SALINE IV SCH (11:00)
[2016-07-12 11:24] VITALS: BP 137/72
[2016-07-12] MEDS: HEPARIN for IV BOLUS 10,000 UNIT/10 ML VIAL. IV PRN ×2 (11:46→19:37)
[2016-07-12] MEDS: NORMAL SALINE IV SCH ×2 (14:14→21:02)
[2016-07-12] MEDS: CEFAZOLIN SODIUM IV SCH ×2 (14:14→21:02)
[2016-07-12] MEDS: HYDROCODONE/APAP 5/325MG TABLET. PO PRN (14:32)
[2016-07-12 14:59] VITALS: BP 139/73
--- NOTE | 2016-07-12 15:25 | CARD ---
APPROVED REPORT EXAM: Two-dimensional and M-mode echocardiogram with Doppler and color Doppler. Other Information Quality : GoodHR: 117bpm Rhythm : Tachycardia INDICATION Hypertension/HCVD LUE DVT RISK FACTORS Hypertension Obesity 2D DIMENSIONS RVDd2.3 (2.9-3.5cm)Left Atrium(2D)4.3 (1.6-4.0cm) IVSd1.0 (0.7-1.1cm)Aortic Root(2D)3.2 (2.0-3.7cm) LVDd5.9 (3.9-5.9cm)LVOT Diameter2.5 (1.8-2.4cm) PWd0.8 (0.7-1.1cm)LVDs3.6 (2.5-4.0cm) FS (%) 39.5 %SV121.8 ml LVEF(%)69.2 (>50%) Mitral Valve MV E Ykknzmcr37.5cm/sMV E Peak Gr.7mmHg MV DECEL [id number] A Uusrdmse555.8cm/s MV E Mean Gr.3mmHgE/A Ratio0.9 MV A [id number] Pulmonary Valve PV Peak Dimuyaul722.4cm/s Tricuspid Valve TR P. Gqomthwv843sh/sTR Peak Gr.48mmHg LEFT VENTRICLE The Left Ventricle is mildly dilated. There is normal left ventricular wall thickness. The left ventr icular systolic function is normal and the ejection fraction is within normal range. The Ejection Fra ction is 60-65%. There is normal LV segmental wall motion. Transmitral Doppler flow pattern is Grade I-abnormal relaxation pattern. RIGHT VENTRICLE The right ventricle is normal size. There is normal right ventricular wall thickness. The right ventr icular systolic function is normal. ATRIA The left atrium size is normal. The right atrium size is normal. The interatrial septum is intact wit h no evidence for an atrial septal defect or patent foramen ovale as noted on 2-D or Doppler imaging. AORTIC VALVE The aortic valve is normal in structure and function. Doppler and Color Flow revealed no significant aortic regurgitation. There is no significant aortic valvular stenosis. MITRAL VALVE The mitral valve leaflets are thickened. There is no evidence of mitral valve prolapse. There is no m itral valve stenosis. Doppler and Color Flow revealed trace mitral valve regurgitation. TRICUSPID VALVE Doppler and Color Flow revealed mild to moderate tricuspid regurgitation. The pulmonary artery systol ic pressure is estimated at 56 mmHg. PULMONIC VALVE The pulmonary valve is normal in structure and function. Doppler and Color Flow revealed no pulmonic valvular regurgitation. There is no pulmonic valvular stenosis. GREAT VESSELS The aortic root is normal in size. The ascending aorta is normal in size. The pulmonary artery is nor mal. The IVC is normal in size and collapses <50% with inspiration. PERICARDIAL EFFUSION There is no evidence of significant pericardial effusion. Critical Notification Critical Value: No <Conclusion> The Left Ventricle is mildly dilated. The left ventricular systolic function is normal and the ejection fraction is within normal range. The Ejection Fraction is 60-65%. There is normal left ventricular wall thickness. There is no significant aortic valvular stenosis. Doppler and Color Flow revealed no significant aortic regurgitation. Doppler and Color Flow revealed trace mitral valve regurgitation. Doppler and Color Flow revealed mild to moderate tricuspid regurgitation. The pulmonary artery systolic pressure is estimated at 56 mmHg.
[2016-07-12] MEDS ORDERED: DOCUSATE SODIUM 100 MG CAPSULE PO PRN (15:30)
[2016-07-12] MEDS ORDERED: MAGNESIUM HYDROXIDE 2,400 MG/30 ML ORAL.SUSP. PO PRN (15:30)
[2016-07-12] MEDS ORDERED: WARFARIN 6 MG TABLET. PO ONE (16:00)
[2016-07-12] MEDS: HYDROMORPHONE 2 MG/ML VIAL. IVP PRN ×2 (17:52→22:25)
[2016-07-12 19:00] VITALS: BP 155/71
--- NOTE | 2016-07-12 19:13 | PDOC ---
PULMONARY PROGRESS NOTES Vitals Vital Signs Date Time Temp Pulse Resp B/P Pulse Ox O2 Delivery O2 Flow Rate FiO2 07/12/16 18:00 22 96 Room Air 2.0 07/12/16 14:59 99.1 114 139/73 99.1 Lungs: Clear Labs Laboratory Tests Test 07/10/16 20:36 07/11/16 03:45 07/11/16 07:13 07/11/16 11:44 Glucose (Fingerstick) 182mg/dL (70-99) 250mg/dL (70-99) 309mg/dL (70-99) White Blood Count 19.5x10^3/uL (4.0-11.0) Red Blood Count 4.79x10^6/uL (4.30-5.70) Hemoglobin 13.2g/dL (13.0-17.5) Hematocrit 40.7% (39.0-53.0) Mean Corpuscular Volume 85fL (79-100) Mean Corpuscular Hemoglobin 28pg (25-35) Mean Corpuscular Hemoglobin Concent 33g/dL (31-37) Red Cell Distribution Width 15.5% (11.5-14.5) Platelet Count 360x10^3/uL (140-400) Neutrophils (%) (Auto) 91% (31-73) Lymphocytes (%) (Auto) 5% (24-48) Monocytes (%) (Auto) 4% (0-9) Eosinophils (%) (Auto) 0% (0-3) Basophils (%) (Auto) 1% (0-3) Neutrophils # (Auto) 17.7x10^3uL (1.8-7.7) Lymphocytes # (Auto) 1.0x10^3/uL (1.0-4.8) Monocytes # (Auto) 0.7x10^3/uL (0.0-1.1) Eosinophils # (Auto) 0.0x10^3/uL (0.0-0.7) Basophils # (Auto) 0.1x10^3/uL (0.0-0.2) Sodium Level 133mmol/L (136-145) Potassium Level 3.7mmol/L (3.5-5.1) Chloride Level 98mmol/L (98-107) Carbon Dioxide Level 24mmol/L (21-32) Anion Gap 11 (6-14) Blood Urea Nitrogen 57mg/dL (8-26) Creatinine 1.5mg/dL (0.7-1.3) Estimated GFR (Cockcroft-Gault) 48.6 BUN/Creatinine Ratio 38 (6-20) Glucose Level 201mg/dL (70-99) Calcium Level 7.6mg/dL (8.5-10.1) Phosphorus Level 3.6mg/dL (2.6-4.7) Magnesium Level 2.1mg/dL (1.8-2.4) Total Bilirubin 0.8mg/dL (0.2-1.0) Aspartate Amino Transf (AST/SGOT) 54U/L (15-37) Alanine Aminotransferase (ALT/SGPT) 35U/L (16-63) Alkaline Phosphatase 116U/L (46-116) Creatine Kinase 28U/L (39-308) Total Protein 5.3g/dL (6.4-8.2) Albumin 1.3g/dL (3.4-5.0) Albumin/Globulin Ratio 0.3 (1.0-1.7) Lipase 221U/L (73-393) Test 07/11/16 16:12 07/11/16 19:30 07/11/16 21:38 07/11/16 23:15 Glucose (Fingerstick) 241mg/dL (70-99) 178mg/dL (70-99) Lactic Acid Level 2.1mmol/L (0.4-2.0) White Blood Count 13.8x10^3/uL (4.0-11.0) Red Blood Count 4.07x10^6/uL (4.30-5.70) Hemoglobin 11.2g/dL (13.0-17.5) Hematocrit 34.3% (39.0-53.0) Mean Corpuscular Volume 84fL (79-100) Mean Corpuscular Hemoglobin 28pg (25-35) Mean Corpuscular Hemoglobin Concent 33g/dL (31-37) Red Cell Distribution Width 15.6% (11.5-14.5) Platelet Count 366x10^3/uL (140-400) Prothrombin Time 15.4SEC (11.7-14.0) Prothromb Time International Ratio 1.3 (0.8-1.1) Activated Partial Thromboplast Time 37SEC (24-38) Test 07/12/16 03:50 07/12/16 07:19 07/12/16 09:40 07/12/16 11:08 White Blood Count 14.7x10^3/uL (4.0-11.0) Red Blood Count 3.91x10^6/uL (4.30-5.70) Hemoglobin 10.7g/dL (13.0-17.5) Hematocrit 33.4% (39.0-53.0) Mean Corpuscular Volume 85fL (79-100) Mean Corpuscular Hemoglobin 27pg (25-35) Mean Corpuscular Hemoglobin Concent 32g/dL (31-37) Red Cell Distribution Width 15.5% (11.5-14.5) Platelet Count 337x10^3/uL (140-400) Neutrophils (%) (Auto) 81% (31-73) Lymphocytes (%) (Auto) 14% (24-48) Monocytes (%) (Auto) 4% (0-9) Eosinophils (%) (Auto) 0% (0-3) Basophils (%) (Auto) 0% (0-3) Neutrophils # (Auto) 12.0x10^3uL (1.8-7.7) Lymphocytes # (Auto) 2.0x10^3/uL (1.0-4.8) Monocytes # (Auto) 0.6x10^3/uL (0.0-1.1) Eosinophils # (Auto) 0.1x10^3/uL (0.0-0.7) Basophils # (Auto) 0.1x10^3/uL (0.0-0.2) Sodium Level 134mmol/L (136-145) Potassium Level 3.7mmol/L (3.5-5.1) Chloride Level 99mmol/L (98-107) Carbon Dioxide Level 26mmol/L (21-32) Anion Gap 9 (6-14) Blood Urea Nitrogen 30mg/dL (8-26) Creatinine 0.9mg/dL (0.7-1.3) Estimated GFR (Cockcroft-Gault) 87.6 Glucose Level 241mg/dL (70-99) Calcium Level 7.8mg/dL (8.5-10.1) Phosphorus Level 2.8mg/dL (2.6-4.7) Magnesium Level 2.3mg/dL (1.8-2.4) Creatine Kinase 23U/L (39-308) Albumin 1.9g/dL (3.4-5.0) Thyroid Stimulating Hormone (TSH) 1.484uIU/mL (0.358-3.74) Glucose (Fingerstick) 241mg/dL (70-99) 284mg/dL (70-99) Erythrocyte Sedimentation Rate 24 (0-15) Heparin Anti-Xa Act, Unfractionated 0.10IU/mL (0.30-0.70) Uric Acid 1.7mg/dL (3.5-7.2) Test 07/12/16 14:36 07/12/16 17:15 07/12/16 17:30 Glucose (Fingerstick) 298mg/dL (70-99) 249mg/dL (70-99) Heparin Anti-Xa Act, Unfractionated 0.10IU/mL (0.30-0.70) Laboratory Tests Test 07/11/16 19:30 07/11/16 21:38 07/11/16 23:15 07/12/16 03:50 Lactic Acid Level 2.1mmol/L (0.4-2.0) Glucose (Fingerstick) 178mg/dL (70-99) White Blood Count 13.8x10^3/uL (4.0-11.0) 14.7x10^3/uL (4.0-11.0) Red Blood Count 4.07x10^6/uL (4.30-5.70) 3.91x10^6/uL (4.30-5.70) Hemoglobin 11.2g/dL (13.0-17.5) 10.7g/dL (13.0-17.5) Hematocrit 34.3% (39.0-53.0) 33.4% (39.0-53.0) Mean Corpuscular Volume 84fL (79-100) 85fL (79-100) Mean Corpuscular Hemoglobin 28pg (25-35) 27pg (25-35) Mean Corpuscular Hemoglobin Concent 33g/dL (31-37) 32g/dL (31-37) Red Cell Distribution Width 15.6% (11.5-14.5) 15.5% (11.5-14.5) Platelet Count 366x10^3/uL (140-400) 337x10^3/uL (140-400) Prothrombin Time 15.4SEC (11.7-14.0) Prothromb Time International Ratio 1.3 (0.8-1.1) Activated Partial Thromboplast Time 37SEC (24-38) Neutrophils (%) (Auto) 81% (31-73) Lymphocytes (%) (Auto) 14% (24-48) Monocytes (%) (Auto) 4% (0-9) Eosinophils (%) (Auto) 0% (0-3) Basophils (%) (Auto) 0% (0-3) Neutrophils # (Auto) 12.0x10^3uL (1.8-7.7) Lymphocytes # (Auto) 2.0x10^3/uL (1.0-4.8) Monocytes # (Auto) 0.6x10^3/uL (0.0-1.1) Eosinophils # (Auto) 0.1x10^3/uL (0.0-0.7) Basophils # (Auto) 0.1x10^3/uL (0.0-0.2) Sodium Level 134mmol/L (136-145) Potassium Level 3.7mmol/L (3.5-5.1) Chloride Level 99mmol/L (98-107) Carbon Dioxide Level 26mmol/L (21-32) Anion Gap 9 (6-14) Blood Urea Nitrogen 30mg/dL (8-26) Creatinine 0.9mg/dL (0.7-1.3) Estimated GFR (Cockcroft-Gault) 87.6 Glucose Level 241mg/dL (70-99) Calcium Level 7.8mg/dL (8.5-10.1) Phosphorus Level 2.8mg/dL (2.6-4.7) Magnesium Level 2.3mg/dL (1.8-2.4) Creatine Kinase 23U/L (39-308) Albumin 1.9g/dL (3.4-5.0) Thyroid Stimulating Hormone (TSH) 1.484uIU/mL (0.358-3.74) Test 07/12/16 07:19 07/12/16 09:40 07/12/16 11:08 07/12/16 14:36 Glucose (Fingerstick) 241mg/dL (70-99) 284mg/dL (70-99) 298mg/dL (70-99) Erythrocyte Sedimentation Rate 24 (0-15) Heparin Anti-Xa Act, Unfractionated 0.10IU/mL (0.30-0.70) Uric Acid 1.7mg/dL (3.5-7.2) Test 07/12/16 17:15 07/12/16 17:30 Glucose (Fingerstick) 249mg/dL (70-99) Heparin Anti-Xa Act, Unfractionated 0.10IU/mL (0.30-0.70) Medications Active Scripts Medications Dose Route/Sig Days Date Category Phenergan (Promethazine HCl) 25 Mg Supp.rect 25 Mg RC Q8HRS PRN 07/02/16 Rx Zofran Odt (Ondansetron) 4 Mg Tab.rapdis 1 Tab SL Q8HRS PRN 07/02/16 Rx Impression . [id number] LLL NODULE NEEDS FOLLOW UP THANKS NIGEL DAMON MD Jul 12, 2016 19:13
[2016-07-12] MEDS ORDERED: INSULIN DETEMIR 300 UNITS/3 ML INSULN.PEN. SQ SCH (21:00)
[2016-07-12] MEDS: POLYETHYLENE GLYCOL 3350 17 GM PACKET. PO SCH (21:01)
[2016-07-12 23:00] VITALS: BP 134/68
[2016-07-13] MEDS: HEPARIN 25,000UTS/500ML PREMIX 500 ML IV PRN ×2 (00:23→12:12)
[2016-07-13] MEDS: ALPRAZOLAM 0.5 MG TABLET PO PRN (00:52)
[2016-07-13] MEDS: HYDROCODONE/APAP 5/325MG TABLET. PO PRN ×2 (00:52→14:00)
--- NOTE | 2016-07-13 01:46 | CONS ---
DATE OF CONSULTATION: 07/12/2016 ATTENDING PHYSICIAN: Dr. Romero. REASON FOR CONSULTATION: The patient was seen at the request of Dr. Munroe for evaluation about his left shoulder pain. 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 He has been sick for about 2 weeks. He also bumped his shoulders about 2 weeks ago, since then he is having pain in his shoulder. The patient was admitted on 07/09/2016 with nausea, vomiting and feeling sick. He apparently had not eaten well for about 2 weeks prior to the present hospitalization. The patient also had some cough about a week prior to the hospitalization with some runny nose, greenish sputum, no shortness of breath. The patient was known diabetic, status post knee repair surgery in the past. The patient drinks alcohol socially. He lives alone, had stairs to manage both to enter the house plus basement and prior to the present hospitalization, he had been independent with the mobility and self-care skills, not using an assistive devices. The patient since admission is being treated with a tentative diagnosis of acute renal failure, dehydration, hyponatremia, bronchitis, moderate malnutrition. He had radiological studies which revealed evidence of a nodule in his left lung and CT scan revealed well-defined 13 mm nodule in the left lower lobe, low density mass in the left upper abdomen, partially visualized, might represent a renal cyst. Doppler studies revealed left basilic venous thrombosis from mid upper arm to the mid forearm, suggestion of thrombus within the right cephalic veins surrounding the peripheral catheter. Pulmonary perfusion imaging failed to reveal any evidence of pulmonary embolism. PHYSICAL EXAMINATION: The patient on physical examination today revealed a middle-aged male. He is in moderate distress about his left shoulder pain. He is protecting his left shoulder, significant pain on attempts at range of motion of left shoulder. He had tenderness to palpation at left shoulder, left upper trapezius muscle area significant pain on attempts at movement of his left shoulder. The patient had equal perception of touch and pinprick sensation bilaterally, maybe slightly decreased sensory perception over left shoulder area. Deep tendon reflexes are 1-2+ and symmetrical with absent ankle jerks and he had crepitus on range of motion of both shoulders and knees. The patient is supine in bed. I did not get him up secondary to his significant left shoulder pain. He is alert, oriented to time, place, person and circumstance and follows commands appropriately. ASSESSMENT: Sprain, left shoulder, superimposed on degenerative changes with associated tendinitis, left shoulder and left shoulder girdle muscle strain, no evidence of rotator cuff lesion and probable immobilization of left shoulder since that bumping about 2 weeks ago with resulting basilic vein thrombosis. 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 RECOMMENDATION: To ask physical therapy and occupational therapy to see him to get him up as tolerated, to consider injecting his left shoulder with Depo-Medrol and Marcaine, for the time being use arm sling and ice packs. Dr. Munroe, I appreciate asking me to participate in care of this interesting patient. I will be glad to follow him with you as needed for the rehabilitation. CLIFFORD BURGOS MD DR: MICHELL/luke JOB#: [id number] / [id number]
[2016-07-13] MEDS: DIPHENHYDRAMINE 50 MG/ML VIAL IVP PRN (01:52)
[2016-07-13 02:31] LABS: INR 1.4 (0.8-1.1); PROTHROMBIN TIME PATIENT 16.7 SEC (11.7-14.0)
[2016-07-13 02:47] LABS: CALCIUM 7.7 mg/dL (8.5-10.1); CREATININE 0.9 mg/dL (0.7-1.3); GFR 87.6; PHOSPHORUS 2.9 mg/dL (2.6-4.7); POTASSIUM 3.9 mmol/L (3.5-5.1)
[2016-07-13 03:00] VITALS: BP 133/72
--- NOTE | 2016-07-13 03:41 | CONS ---
DATE OF CONSULTATION: 07/12/2016 ATTENDING PHYSICIAN: Dr. Romero. REASON FOR CONSULTATION: The patient seen in pulmonary consultation at the request of Dr. Romero for abnormal CT of the chest revealing pulmonary nodule. HISTORY OF PRESENT ILLNESS: The patient is a 55-year-old who presented with basically flu-like symptoms, shortness of air, fatigue, dehydration. He was worked up and found to have Staph aureus in his urine, possible septic emboli in the right upper extremity. His workup included multiple diagnostic studies including CT chest. I personally reviewed the CT. There is nodule in the left lower lobe, otherwise no evidence of what appears to be septic emboli. The patient also had a V/Q scan, which was indeterminant. Echocardiogram revealed ejection fraction of 60-65%, pulmonary artery pressure of 65. He had an upper extremity venous Doppler, which revealed left basilic thrombus and right cephalic vein thrombus. The patient has never smoked. No prior pneumonia. No significant work history. PAST MEDICAL HISTORY: Remarkable for diabetes. PAST SURGICAL HISTORY: Total knee replacement. FAMILY HISTORY: Diabetes. SOCIAL HISTORY: Denies any alcohol or tobacco. REVIEW OF SYSTEMS: As indicated above, otherwise, a 10-point system was reviewed and negative. PHYSICAL EXAMINATION: VITAL SIGNS: Stable. O2 saturation was greater than 92%. GENERAL: The patient was in no respiratory distress. HEENT: Eyes, the sclerae were nonicteric. NECK: Jugular venous distention was not elevated. No lymphadenopathy. CHEST: Full expansion. LUNGS: Adequate airway flow, no wheezes. CARDIOVASCULAR: Regular rate and rhythm with S1 and S2, no S3. ABDOMEN: Soft, nontender, nondistended. EXTREMITIES: No clubbing, cyanosis or edema. LABORATORY DATA: Reviewed. CT of the chest reviewed. V/Q scan reviewed, indeterminant. White count was elevated. Electrolytes were noted. BUN was elevated. Creatinine was elevated. UA was noted. IMPRESSION: 1. Abnormal CT of the chest revealing 1.3 cm nodule in the left lower lobe in a patient who has never smoked. 2. ____ per Infectious Disease. 3. Staphylococcus aureus in the urine. 4. No evidence of septic emboli on current CT of the chest. PLAN: From a pulmonary standpoint of view, the patient is doing well. He is not requiring any oxygen. I discussed the above findings with his . I recommend followup CT of the chest in 3 months. I do appreciate the privilege in sharing in the patient's care. NIGEL DAMON MD DR: RUBEN/luke JOB#: [id number] / [id number]
[2016-07-13 03:47] LABS: BASO # 0.1 x10^3/uL (0.0-0.2); BASO % 1 % (0-3); EOS % 1 % (0-3); HEMATOCRIT 32.4 % (39.0-53.0); HEMOGLOBIN 10.5 g/dL (13.0-17.5); LYMPH # 1.7 x10^3/uL (1.0-4.8); LYMPH % 13 % (24-48); MEAN CORPUSCULAR HEMOGLOBIN 28 pg (25-35); MEAN CORPUSCULAR HGB CONC 32 g/dL (31-37); MEAN CORPUSCULAR VOLUME 85 fL (79-100); MONO % 4 % (0-9); NEUT % 82 % (31-73); PLATELET COUNT 353 x10^3/uL (140-400); RED CELL DISTRIBUTION WIDTH 15.4 % (11.5-14.5); WHITE BLOOD COUNT 13.1 x10^3/uL (4.0-11.0)
[2016-07-13 04:06] LABS: MAGNESIUM 2.1 mg/dL (1.8-2.4)
--- NOTE | 2016-07-13 05:41 | CONS ---
DATE OF CONSULTATION: 07/12/2016 ROOM: 500 REQUESTING PHYSICIAN: Dr. Romero. REASON FOR CONSULTATION: Questionable sepsis. HISTORY OF PRESENT ILLNESS: The patient is a pleasant 55-year-old gentleman with a history of morbid obesity and diabetes. He states his sugars typically run between 116-220. Early in June, he began to feel ill. He had some chills, nausea, reported vomiting, but no diarrhea and did have some nasal congestion, some weakness. Presented to [facility] on 07/02/2016. He had a temp of 99.7. Influenza screen was negative. White blood cell count was 12.5. Urinalysis was obtained and he was discharged. He then re-presented on 07/09/2016 with a complaint of dizziness, generalized weakness, some abdominal discomfort and decreased urinary output. On arrival, white blood cell count was 15.7. Urinalysis was consistent with urinary tract infection. Glucose was 379 and his creatinine was 2. He was placed on levofloxacin. Hemoglobin A1c was 11.8. Creatinine has since normalized. Lactic acid yesterday was 2.1. Influenza screen was negative. He underwent a chest x-ray on 07/09/2016 that showed a nodule in the left lung. He underwent a renal ultrasound, which showed no significant finding in either kidney. CT scan of the chest was performed. He had a well-defined ____ mm nodule in the left lower lobe and a low density mass in the left upper abdomen partially visualized. Subsequently, he underwent a CT scan of the chest to evaluate the nodule. It was again seen in the left lower lobe and there was a low density mass in the left upper abdomen that was partially visualized, may represent a renal cyst. He began to develop some shoulder pain, particularly on 07/10/2016 through 07/11/2016. He underwent an upper extremity Doppler bilaterally. He had a left basilic venous thrombus in the mid upper arm and suggestion of a thrombus in the right cephalic surrounding the peripheral catheter. Because of the pain, he underwent a left shoulder x-ray, which showed some moderate to mild degenerative disease. He then underwent a perfusion scan, which showed patchy defects, but was intermediate probability. I was consulted last evening. Currently, the patient is lying in bed, feels weak. He has some pain in his left upper extremity, hard to move and also is beginning to have some discomfort in his right upper extremity. He had some sinus congestion before. This improved. He had sore throat. It was mild. Diarrhea has improved. No dysuria, frequency or urgency. He has no abdominal pain. PAST MEDICAL HISTORY: Positive for diabetes, obesity. PAST SURGICAL HISTORY: Positive for bilateral knee surgery. He has had knee injections recently with some cortisone. He has had a right hand surgery secondary to a crush injury in the past. REVIEW OF SYSTEMS: Otherwise negative except for mentioned above. ALLERGIES: No known drug allergies. SOCIAL HISTORY: He is . No tobacco or alcohol. FAMILY HISTORY: Positive for diabetes. CURRENT MEDICATIONS: Include levofloxacin, Coumadin, mag sulfate, Benadryl. He was on insulin, Solu-Medrol x 1, hydrocodone, heparin this morning. PHYSICAL EXAMINATION: VITAL SIGNS: Temperature currently 98.8, it was 100.2 earlier; pulse 100; respirations 18; blood pressure 122/61; satting 95% on 2 L nasal cannula. CONSTITUTIONAL: He looks tired, but he is cooperative. He is morbidly obese. HEENT: Pupils are equal and reactive. Normal conjunctivae. Oral cavity, pharynx is clear. No signs of petechiae. NECK: Supple with some mild JVD. LUNGS: Decreased in the bases. HEART: S1, S2, without murmur. ABDOMEN: Obese, soft, nontender, nondistended with positive bowel sounds. No guarding, no rebound. EXTREMITIES: Without clubbing, cyanosis. He has no gross lower extremity edema. Left upper extremity has 2+ edema. He is neurovascularly intact. His left shoulder has mild erythema on the anterior aspect. It is warm to touch and it is painful to move his shoulder joint as well as his elbow and his wrist. Right upper extremity has some mild tenderness. He is neurovascularly intact, although he says he has some mild tingling and it is less painful to move. SKIN: Warm to touch without generalized rash. NEUROLOGIC: He is intact. PSYCHIATRIC: ____ Affect is appropriate. LABORATORY DATA: White count today 14.7, hemoglobin 10.7, platelets of 337, neutrophils of 81%. Creatinine 0.9, glucose 241. Creatinine kinase was 23. Urinalysis is concerning for urinary tract infection. Influenza is negative. Cultures from the urine on both 07/02/2016 and 07/09/2016 are positive for Staph aureus. On 07/02/2016, it was MSSA. RADIOLOGY: Reviewed in history of present illness. IMPRESSION: 1. Fever. 2. Staphylococcus aureus. 3. Left shoulder pain and warmth. 4. Questionable septic emboli in the upper extremity. 5. Diabetes. 6. Obesity. 7. Pulmonary nodule. 8. Questionable incidental mass in the abdomen. RECOMMENDATIONS: We will discontinue levofloxacin, begin cefazolin. Obtain MRI of his ____ left shoulder and neck. Obtain a sed rate, uric acid. Follow up on blood cultures. Obtain an echo ____ and then Primary for further pain management. This was discussed. May need a hypercoagulable workup. This was discussed with his . Thank you for allowing me to participate in this patient's care. If you have any questions, please do not hesitate to contact me. MELA JAIMES MD DR: VAUGHN/luke JOB#: [id number] / [id number]
[2016-07-13] MEDS: CEFAZOLIN SODIUM IV SCH ×3 (05:54→21:01)
[2016-07-13] MEDS: NORMAL SALINE IV SCH ×3 (05:54→21:01)
[2016-07-13] MEDS: IV NORMAL SALINE 1000ML BAG 1,000 ML IV SCH ×3 (05:57→17:59)
[2016-07-13 06:17] LABS: UR PROTEIN RD 13.1 mg/dL (Not Estab.)
[2016-07-13 07:00] VITALS: BP 158/57
[2016-07-13] MEDS: INSULIN ASPART 300 UNITS/3 ML INSULN.PEN SQ SCH ×6 (07:30→18:08)
--- NOTE | 2016-07-13 09:25 | PDOC ---
Infectious Disease Note Subjective Subjective About the same ROS ROS GEN: Denies fevers, chills, sweats HEENT: Denies blurred vision, sore throat CV: Denies chest pain RESP: Denies shortness of air, cough GI: Denies n/v/d NEURO: Denies confusion, dizziness MSK: still shoulder pain Vital Sign Vital Signs Vital Signs Date Time Temp Pulse Resp B/P Pulse Ox O2 Delivery O2 Flow Rate FiO2 07/13/16 07:00 99.9 115 22 158/57 95 Room Air 99.9 07/13/16 03:00 2.0 Physical Exam PHYSICAL EXAM GENERAL: NAD, Alert, obese. appears a little tired HEENT: PERRL, OC/OP- clear NECK: Supple, no JVD, no LN LUNGS: Clear HEART: S1S2, no gallop, no murmur ABD: Soft, NT, no organomegaly, no rebound, obese EXT: No edema, no cyanosis,no splinters. Left shoulder warm and tender [employer]: Alert, oriented x 3, no focal neurologic deficit SKIN: No rash IV: ok Labs Lab Laboratory Tests Test 07/12/16 09:40 07/12/16 11:08 07/12/16 14:36 07/12/16 17:15 Erythrocyte Sedimentation Rate 24 (0-15) Heparin Anti-Xa Act, Unfractionated 0.10IU/mL (0.30-0.70) Uric Acid 1.7mg/dL (3.5-7.2) Glucose (Fingerstick) 284mg/dL (70-99) 298mg/dL (70-99) 249mg/dL (70-99) Test 07/12/16 17:30 07/12/16 21:00 07/13/16 01:57 07/13/16 07:21 Heparin Anti-Xa Act, Unfractionated 0.10IU/mL (0.30-0.70) 0.27IU/mL (0.30-0.70) Glucose (Fingerstick) 225mg/dL (70-99) 245mg/dL (70-99) White Blood Count 13.1x10^3/uL (4.0-11.0) Red Blood Count 3.80x10^6/uL (4.30-5.70) Hemoglobin 10.5g/dL (13.0-17.5) Hematocrit 32.4% (39.0-53.0) Mean Corpuscular Volume 85fL (79-100) Mean Corpuscular Hemoglobin 28pg (25-35) Mean Corpuscular Hemoglobin Concent 32g/dL (31-37) Red Cell Distribution Width 15.4% (11.5-14.5) Platelet Count 353x10^3/uL (140-400) Neutrophils (%) (Auto) 82% (31-73) Lymphocytes (%) (Auto) 13% (24-48) Monocytes (%) (Auto) 4% (0-9) Eosinophils (%) (Auto) 1% (0-3) Basophils (%) (Auto) 1% (0-3) Neutrophils # (Auto) 10.7x10^3uL (1.8-7.7) Lymphocytes # (Auto) 1.7x10^3/uL (1.0-4.8) Monocytes # (Auto) 0.5x10^3/uL (0.0-1.1) Eosinophils # (Auto) 0.1x10^3/uL (0.0-0.7) Basophils # (Auto) 0.1x10^3/uL (0.0-0.2) Prothrombin Time 16.7SEC (11.7-14.0) Prothromb Time International Ratio 1.4 (0.8-1.1) Sodium Level 133mmol/L (136-145) Potassium Level 3.9mmol/L (3.5-5.1) Chloride Level 100mmol/L (98-107) Carbon Dioxide Level 25mmol/L (21-32) Anion Gap 8 (6-14) Blood Urea Nitrogen 18mg/dL (8-26) Creatinine 0.9mg/dL (0.7-1.3) Estimated GFR (Cockcroft-Gault) 87.6 Glucose Level 271mg/dL (70-99) Calcium Level 7.7mg/dL (8.5-10.1) Phosphorus Level 2.9mg/dL (2.6-4.7) Magnesium Level 2.1mg/dL (1.8-2.4) Creatine Kinase 18U/L (39-308) Albumin 2.0g/dL (3.4-5.0) Test 2/21/17 08:35 Heparin Anti-Xa Act, Unfractionated 0.29IU/mL (0.30-0.70) Objective Assessment Fever Staph sepsis - 07/11 Staph aureus in urine Shoulder pain and warmth ? Septic emboli in UE Leukocytosis DM Obesity Pulm nodule ? Incidental mass in abd Plan Plan of Care Cont Cefazolin MRI left shoulder and neck F/u blood cults Needs ECHO May need hypercoaguable w/u D/w MELA JAIMES MD Jul 13, 2016 09:25
[2016-07-13] MEDS: LORAZEPAM 2 MG/ML VIAL IV PRN (10:19)
[2016-07-13] MEDS ORDERED: GADOBUTROL 7.5 MMOL/7.5 ML VIAL IV ONE ×2 (10:45)
--- NOTE | 2016-07-13 11:20 | RAD ---
EXAM: Nuclear gastric emptying scan. HISTORY: Nausea, gastroparesis COMPARISON: None. TECHNIQUE: Serial static images were obtained over the stomach following oral administration of 2.0 mCi of 99m-Tc sulfur colloid in an egg based meal. FINDINGS: The stomach appears normal in contour. There is only a small amount of clearance of activity into the small bowel. Gastric emptying half-time is 220 minutes (normal <90 minutes). Refer to the worksheets for more detail. IMPRESSION: 1. Very delayed gastric emptying with half-time 220 minutes.
--- NOTE | 2016-07-13 12:39 | PDOC ---
PROGRESS NOTES Chief Complaint Chief Complaint sepsis, 1. DM 2 uncontrolled with hgba1c of 11 2. NELIDA - vasomotor, improved 3. Hyponatremia: improving. cont IVF 4. LLL lung nodule: CT showed spickulated nodue, P 5. Acute Bronchitis: 7. staph UTI 8. Hypoalbuminemia: severe, in BMI 38. 9. Acute on chronic pain, 10. UE DVT, heparin gtt for days History of Present Illness History of Present Illness much better w/ arm pain today, diffuse myalgia, a little better Minimal ambulation Dr. Pelayo here for toenail management, should help ambulation Albumin still only 1.8 blood sugars running high, incraese levemir and novolog - cont high dose SSi Vitals Vitals Vital Signs Date Time Temp Pulse Resp B/P Pulse Ox O2 Delivery O2 Flow Rate FiO2 07/13/16 08:00 Room Air 07/13/16 07:00 99.9 115 22 158/57 95 99.9 07/13/16 03:00 2.0 Physical Exam Physical Exam arm str. improved, General: Alert, Oriented X3, Cooperative, mild distress Heart: Regular rate, No murmurs Lungs: Clear Abdomen: Normal bowel sounds, Soft, No tenderness Extremities: No clubbing, No edema Skin: No rashes Labs LABS Laboratory Tests Test 07/12/16 14:36 07/12/16 17:15 07/12/16 17:30 07/12/16 21:00 Glucose (Fingerstick) 298mg/dL (70-99) 249mg/dL (70-99) 225mg/dL (70-99) Heparin Anti-Xa Act, Unfractionated 0.10IU/mL (0.30-0.70) Test 07/13/16 01:57 07/13/16 07:21 07/13/16 08:35 07/13/16 11:59 White Blood Count 13.1x10^3/uL (4.0-11.0) Red Blood Count 3.80x10^6/uL (4.30-5.70) Hemoglobin 10.5g/dL (13.0-17.5) Hematocrit 32.4% (39.0-53.0) Mean Corpuscular Volume 85fL (79-100) Mean Corpuscular Hemoglobin 28pg (25-35) Mean Corpuscular Hemoglobin Concent 32g/dL (31-37) Red Cell Distribution Width 15.4% (11.5-14.5) Platelet Count 353x10^3/uL (140-400) Neutrophils (%) (Auto) 82% (31-73) Lymphocytes (%) (Auto) 13% (24-48) Monocytes (%) (Auto) 4% (0-9) Eosinophils (%) (Auto) 1% (0-3) Basophils (%) (Auto) 1% (0-3) Neutrophils # (Auto) 10.7x10^3uL (1.8-7.7) Lymphocytes # (Auto) 1.7x10^3/uL (1.0-4.8) Monocytes # (Auto) 0.5x10^3/uL (0.0-1.1) Eosinophils # (Auto) 0.1x10^3/uL (0.0-0.7) Basophils # (Auto) 0.1x10^3/uL (0.0-0.2) Prothrombin Time 16.7SEC (11.7-14.0) Prothromb Time International Ratio 1.4 (0.8-1.1) Heparin Anti-Xa Act, Unfractionated 0.27IU/mL (0.30-0.70) 0.29IU/mL (0.30-0.70) Sodium Level 133mmol/L (136-145) Potassium Level 3.9mmol/L (3.5-5.1) Chloride Level 100mmol/L (98-107) Carbon Dioxide Level 25mmol/L (21-32) Anion Gap 8 (6-14) Blood Urea Nitrogen 18mg/dL (8-26) Creatinine 0.9mg/dL (0.7-1.3) Estimated GFR (Cockcroft-Gault) 87.6 Glucose Level 271mg/dL (70-99) Calcium Level 7.7mg/dL (8.5-10.1) Phosphorus Level 2.9mg/dL (2.6-4.7) Magnesium Level 2.1mg/dL (1.8-2.4) Creatine Kinase 18U/L (39-308) Albumin 2.0g/dL (3.4-5.0) Glucose (Fingerstick) 245mg/dL (70-99) 326mg/dL (70-99) Review of Systems Review of Systems weakness, myalgia has a better appetite today Assessment and Plan Assessmemt and Plan Problems Medical Problems: (1) Acute renal injury Status: Acute (2) Dehydration Status: Acute (3) Hyponatremia Status: Acute (4) Nausea & vomiting Status: Acute (5) Uncontrolled diabetes mellitus Status: Acute Problems: Comment Review of Relevant I have reviewed the following items [place] (where applicable) has been applied. Labs Laboratory Tests Test 07/11/16 16:12 07/11/16 17:10 07/11/16 19:30 07/11/16 21:38 Glucose (Fingerstick) 241mg/dL (70-99) 178mg/dL (70-99) Urine Protein 13.1mg/dL (Not Estab.) Urine Creatinine 72.3mg/dL (Not Estab.) Urine Protein/Creatinine Ratio 181mg/g creat (0-200) Lactic Acid Level 2.1mmol/L (0.4-2.0) Test 07/11/16 23:15 07/12/16 03:50 07/12/16 07:19 07/12/16 09:40 White Blood Count 13.8x10^3/uL (4.0-11.0) 14.7x10^3/uL (4.0-11.0) Red Blood Count 4.07x10^6/uL (4.30-5.70) 3.91x10^6/uL (4.30-5.70) Hemoglobin 11.2g/dL (13.0-17.5) 10.7g/dL (13.0-17.5) Hematocrit 34.3% (39.0-53.0) 33.4% (39.0-53.0) Mean Corpuscular Volume 84fL (79-100) 85fL (79-100) Mean Corpuscular Hemoglobin 28pg (25-35) 27pg (25-35) Mean Corpuscular Hemoglobin Concent 33g/dL (31-37) 32g/dL (31-37) Red Cell Distribution Width 15.6% (11.5-14.5) 15.5% (11.5-14.5) Platelet Count 366x10^3/uL (140-400) 337x10^3/uL (140-400) Prothrombin Time 15.4SEC (11.7-14.0) Prothromb Time International Ratio 1.3 (0.8-1.1) Activated Partial Thromboplast Time 37SEC (24-38) Neutrophils (%) (Auto) 81% (31-73) Lymphocytes (%) (Auto) 14% (24-48) Monocytes (%) (Auto) 4% (0-9) Eosinophils (%) (Auto) 0% (0-3) Basophils (%) (Auto) 0% (0-3) Neutrophils # (Auto) 12.0x10^3uL (1.8-7.7) Lymphocytes # (Auto) 2.0x10^3/uL (1.0-4.8) Monocytes # (Auto) 0.6x10^3/uL (0.0-1.1) Eosinophils # (Auto) 0.1x10^3/uL (0.0-0.7) Basophils # (Auto) 0.1x10^3/uL (0.0-0.2) Sodium Level 134mmol/L (136-145) Potassium Level 3.7mmol/L (3.5-5.1) Chloride Level 99mmol/L (98-107) Carbon Dioxide Level 26mmol/L (21-32) Anion Gap 9 (6-14) Blood Urea Nitrogen 30mg/dL (8-26) Creatinine 0.9mg/dL (0.7-1.3) Estimated GFR (Cockcroft-Gault) 87.6 Glucose Level 241mg/dL (70-99) Calcium Level 7.8mg/dL (8.5-10.1) Phosphorus Level 2.8mg/dL (2.6-4.7) Magnesium Level 2.3mg/dL (1.8-2.4) Creatine Kinase 23U/L (39-308) Albumin 1.9g/dL (3.4-5.0) Thyroid Stimulating Hormone (TSH) 1.484uIU/mL (0.358-3.74) Cortisol AM Sample 11.5ug/dL (6.2-19.4) Glucose (Fingerstick) 241mg/dL (70-99) Erythrocyte Sedimentation Rate 24 (0-15) Heparin Anti-Xa Act, Unfractionated 0.10IU/mL (0.30-0.70) Uric Acid 1.7mg/dL (3.5-7.2) Test 07/12/16 11:08 07/12/16 14:36 07/12/16 17:15 07/12/16 17:30 Glucose (Fingerstick) 284mg/dL (70-99) 298mg/dL (70-99) 249mg/dL (70-99) Heparin Anti-Xa Act, Unfractionated 0.10IU/mL (0.30-0.70) Test 07/12/16 21:00 07/13/16 01:57 07/13/16 07:21 07/13/16 08:35 Glucose (Fingerstick) 225mg/dL (70-99) 245mg/dL (70-99) White Blood Count 13.1x10^3/uL (4.0-11.0) Red Blood Count 3.80x10^6/uL (4.30-5.70) Hemoglobin 10.5g/dL (13.0-17.5) Hematocrit 32.4% (39.0-53.0) Mean Corpuscular Volume 85fL (79-100) Mean Corpuscular Hemoglobin 28pg (25-35) Mean Corpuscular Hemoglobin Concent 32g/dL (31-37) Red Cell Distribution Width 15.4% (11.5-14.5) Platelet Count 353x10^3/uL (140-400) Neutrophils (%) (Auto) 82% (31-73) Lymphocytes (%) (Auto) 13% (24-48) Monocytes (%) (Auto) 4% (0-9) Eosinophils (%) (Auto) 1% (0-3) Basophils (%) (Auto) 1% (0-3) Neutrophils # (Auto) 10.7x10^3uL (1.8-7.7) Lymphocytes # (Auto) 1.7x10^3/uL (1.0-4.8) Monocytes # (Auto) 0.5x10^3/uL (0.0-1.1) Eosinophils # (Auto) 0.1x10^3/uL (0.0-0.7) Basophils # (Auto) 0.1x10^3/uL (0.0-0.2) Prothrombin Time 16.7SEC (11.7-14.0) Prothromb Time International Ratio 1.4 (0.8-1.1) Heparin Anti-Xa Act, Unfractionated 0.27IU/mL (0.30-0.70) 0.29IU/mL (0.30-0.70) Sodium Level 133mmol/L (136-145) Potassium Level 3.9mmol/L (3.5-5.1) Chloride Level 100mmol/L (98-107) Carbon Dioxide Level 25mmol/L (21-32) Anion Gap 8 (6-14) Blood Urea Nitrogen 18mg/dL (8-26) Creatinine 0.9mg/dL (0.7-1.3) Estimated GFR (Cockcroft-Gault) 87.6 Glucose Level 271mg/dL (70-99) Calcium Level 7.7mg/dL (8.5-10.1) Phosphorus Level 2.9mg/dL (2.6-4.7) Magnesium Level 2.1mg/dL (1.8-2.4) Creatine Kinase 18U/L (39-308) Albumin 2.0g/dL (3.4-5.0) Test 07/13/16 11:59 Glucose (Fingerstick) 326mg/dL (70-99) Laboratory Tests Test 07/12/16 14:36 07/12/16 17:15 07/12/16 17:30 07/12/16 21:00 Glucose (Fingerstick) 298mg/dL (70-99) 249mg/dL (70-99) 225mg/dL (70-99) Heparin Anti-Xa Act, Unfractionated 0.10IU/mL (0.30-0.70) Test 07/13/16 01:57 07/13/16 07:21 07/13/16 08:35 07/13/16 11:59 White Blood Count 13.1x10^3/uL (4.0-11.0) Red Blood Count 3.80x10^6/uL (4.30-5.70) Hemoglobin 10.5g/dL (13.0-17.5) Hematocrit 32.4% (39.0-53.0) Mean Corpuscular Volume 85fL (79-100) Mean Corpuscular Hemoglobin 28pg (25-35) Mean Corpuscular Hemoglobin Concent 32g/dL (31-37) Red Cell Distribution Width 15.4% (11.5-14.5) Platelet Count 353x10^3/uL (140-400) Neutrophils (%) (Auto) 82% (31-73) Lymphocytes (%) (Auto) 13% (24-48) Monocytes (%) (Auto) 4% (0-9) Eosinophils (%) (Auto) 1% (0-3) Basophils (%) (Auto) 1% (0-3) Neutrophils # (Auto) 10.7x10^3uL (1.8-7.7) Lymphocytes # (Auto) 1.7x10^3/uL (1.0-4.8) Monocytes # (Auto) 0.5x10^3/uL (0.0-1.1) Eosinophils # (Auto) 0.1x10^3/uL (0.0-0.7) Basophils # (Auto) 0.1x10^3/uL (0.0-0.2) Prothrombin Time 16.7SEC (11.7-14.0) Prothromb Time International Ratio 1.4 (0.8-1.1) Heparin Anti-Xa Act, Unfractionated 0.27IU/mL (0.30-0.70) 0.29IU/mL (0.30-0.70) Sodium Level 133mmol/L (136-145) Potassium Level 3.9mmol/L (3.5-5.1) Chloride Level 100mmol/L (98-107) Carbon Dioxide Level 25mmol/L (21-32) Anion Gap 8 (6-14) Blood Urea Nitrogen 18mg/dL (8-26) Creatinine 0.9mg/dL (0.7-1.3) Estimated GFR (Cockcroft-Gault) 87.6 Glucose Level 271mg/dL (70-99) Calcium Level 7.7mg/dL (8.5-10.1) Phosphorus Level 2.9mg/dL (2.6-4.7) Magnesium Level 2.1mg/dL (1.8-2.4) Creatine Kinase 18U/L (39-308) Albumin 2.0g/dL (3.4-5.0) Glucose (Fingerstick) 245mg/dL (70-99) 326mg/dL (70-99) Microbiology 07/11/16 Blood Culture - Preliminary, Resulted NO GROWTH AFTER 1 DAY 07/09/16 Urine Culture - Final, Complete 07/09/16 Urine Culture Result 1 (EMILI) - Final, Complete 07/09/16 Antimicrobic Susceptibility - Final, Complete Medications Current Medications Sodium Chloride (Iv Sodium Chloride 0.9% 1000ml Bag) 1,000 ml @ 1,000 mls/hr Q1H IV Last administered on 07/09/16 19:34; Start 07/09/16 at 19:18; Stop at 20:17; Status DC Hydromorphone HCl (Dilaudid) 2 mg 1X ONCE IV ; Start 07/09/16 at 19:30; Stop at 19:30; Status DC Ondansetron HCl (Zofran) 4 mg 1X ONCE IV Last administered on 07/09/16 19:33 ; Start 07/09/16 at 19:30; Stop 07/09/16 at 19:31; Status DC Hydromorphone HCl (Dilaudid) 1 mg 1X ONCE IV Last administered on 07/09/16 19 :33; Start 07/09/16 at 19:30; Stop 07/09/16 at 19:31; Status DC Ondansetron HCl (Zofran) 4 mg PRN Q8HRS PRN IV NAUSEA/VOMITING; Start 07/09/16 at 20:30; Stop 07/09/16 at 21:00; Status DC Morphine Sulfate 4 mg 4 mg PRN Q2HR PRN IV PAIN Last administered on 07/10/16 06:36; Start 07/09/16 at 20:30; Stop 07/10/16 at 13:00; Status DC Sodium Chloride (Iv Sodium Chloride 0.9% 1000ml Bag) 1,000 ml @ 150 mls/hr Q6H40M IV Last administered on 07/09/16 20:41; Start 07/09/16 at 20:24; Stop 07/10/16 at 15:29; Status DC Acetaminophen (Tylenol) 650 mg PRN Q4HRS PRN PO FEVER; Start 07/09/16 at 20:30 ; Stop 07/09/16 at 21:00; Status DC Acetaminophen (Tylenol) 650 mg PRN Q6HRS PRN PO FEVER; Start 07/09/16 at 21:00 ; Stop 07/10/16 at 15:28; Status DC Ondansetron HCl 4 mg 4 mg PRN Q6HRS PRN IV NAUSEA/VOMITING; Start 07/09/16 at 21:00 Sodium Chloride (Iv Sodium Chloride 0.9% 1000ml Bag) 1,000 ml @ 150 mls/hr Q6H40M IV Last administered on 07/13/16 05:57; Start 07/09/16 at 21:00 Insulin Aspart (Novolog) 0-9 UNITS TIDWMEALS SQ Last administered on 07/13/16 12:11; Start 07/10/16 at 08:00 Dextrose 12.5 gm 12.5 gm PRN Q15MIN PRN IV SEE COMMENTS; Start 07/09/16 at 21: 00 Levofloxacin/ Dextrose (LEVAQUIN 500mg PREMIX) 100 ml @ 100 mls/hr Q24H IV Last administered on 07/12/16 02:49; Start 07/09/16 at 22:00; Stop 07/12/16 at 10:37; Status DC Guaifenesin (Mucinex) 600 mg BID PO Last administered on 07/12/16 21:01; Start 07/09/16 at 21:00 Albuterol Sulfate 2.5 mg 2.5 mg PRN Q4HRS PRN NEB SHORTNESS OF BREATH; Start at 21:00 Sodium Chloride (Iv Sodium Chloride 0.9% 1000ml Bag) 1,000 ml @ 0 mls/hr 1X ONCE IV Last administered on 07/10/16 10:27; Start 07/10/16 at 10:30; Stop at 10:31; Status DC Alprazolam (Xanax) 0.5 mg PRN Q8HRS PRN PO ANXIETY / AGITATION Last administered on 07/13/16 00:52; Start 07/10/16 at 13:00 Acetaminophen/ Hydrocodone Bitart (Lortab 5/325) 1 tab PRN Q6HRS PRN PO MODERATE - SEVERE PAIN Last administered on 07/13/16 00:52; Start 07/10/16 at 13:00 Acetaminophen (Tylenol) 650 mg PRN Q6HRS PRN PO MILD PAIN / TEMP Last administered on 07/10/16 21:47; Start 07/10/16 at 13:00 Heparin Sodium (Porcine) 5000 unit 5,000 unit Q8HRS SQ Last administered on 14:02; Start 07/10/16 at 14:00; Stop 07/11/16 at 22:55; Status DC Magnesium Sulfate/ Dextrose (Magnesium Sulfate PREMIX 2GM) 50 ml @ 25 mls/hr PRN DAILY PRN IV for Mag < 1.7 on am labs; Start 07/10/16 at 14:00 Diphenhydramine HCl (Benadryl) 25 mg PRN Q6HRS PRN IVP ITCHING Last administered on 07/13/16 01:52; Start 07/11/16 at 01:30 Lorazepam 2 mg 2 mg PRN Q4HRS PRN IV ANXIETY / AGITATION Last administered on 10:19; Start 07/11/16 at 01:30 Albumin Human (Albuminar) 100 ml @ 100 mls/hr TID IV Last administered on 07/12 20:57; Start 07/11/16 at 14:00; Stop 07/13/16 at 09:59; Status DC Insulin Aspart (Novolog) 10 units TIDAC SQ Last administered on 07/12/16 08:46 ; Start 07/11/16 at 12:30; Stop 07/12/16 at 09:17; Status DC Insulin Detemir 25 units 25 units QHS SQ Last administered on 07/12/16 01:48; Start 07/11/16 at 21:00; Stop 07/12/16 at 09:17; Status DC Heparin Sodium/ Dextrose 500 ml @ 0 mls/hr CONT PRN IV SEE I/O RECORD Last administered on 07/13/16 12:12; Start 07/11/16 at 23:00 Heparin Sodium (Porcine) 3,800 unit PRN Q6HRS PRN IV FOR UFH LEVEL LESS THAN 0.2 Last administered on 07/12/16 19:37; Start 07/11/16 at 23:00 Heparin Sodium (Porcine) 1,900 unit PRN Q6HRS PRN IV FOR UFH LEVEL 0.2 - 0.29 Last administered on 07/13/16 02:33; Start 07/11/16 at 23:00 Warfarin Sodium (Coumadin Per Pharmacy) 1 each PRN DAILY PRN MC PER PROTOCOL Last administered on 07/13/16 12:13; Start 07/11/16 at 23:00 Warfarin Sodium (Coumadin) 5 mg 1X ONCE PO Last administered on 07/12/16 01: 45; Start 07/12/16 at 00:15; Stop 07/12/16 at 00:16; Status DC Info (Anti-Coagulation Monitoring By Pharmacy) 1 each PRN DAILY PRN MC SEE COMMENTS Last administered on 07/12/16 01:37; Start 07/11/16 at 23:45 Heparin Sodium (Porcine) 10,000 unit 1X ONCE IV Last administered on 01:48; Start 07/12/16 at 01:15; Stop 07/12/16 at 01:16; Status DC Insulin Aspart (Novolog) 12 units TIDAC SQ Last administered on 07/13/16 12:08 ; Start 07/12/16 at 11:30 Insulin Detemir (Levemir) 30 units QHS SQ Last administered on 07/12/16 21:07 ; Start 07/12/16 at 21:00 Tramadol HCl (Ultram) 50 mg PRN Q6HRS PRN PO PAIN; Start 07/12/16 at 10:15 Tramadol HCl (Ultram) 50 mg 1X ONCE PO Last administered on 07/12/16 14:32; Start 07/12/16 at 10:15; Stop 07/12/16 at 10:29; Status DC Methylprednisolone Acetate (Depo-Medrol 40mg Vial) 40 mg 1X ONCE IM ; Start at 10:30; Stop 07/12/16 at 10:31; Status DC Bupivacaine HCl (Sensorcaine-Mpf 0.25%) 10 ml 1X ONCE IJ ; Start 07/12/16 at 10 :30; Stop 07/12/16 at 10:31; Status DC Hydromorphone HCl 1 mg 1 mg 1X ONCE IV Last administered on 07/12/16 10:55; Start 07/12/16 at 10:30; Stop 07/12/16 at 10:46; Status DC Cefazolin Sodium 2 gm/Sodium Chloride 50 ml @ 100 mls/hr Q8HRS IV ; Start 07/12 at 11:00; Status Cancel Cefazolin Sodium/ Sodium Chloride (Ancef/Iv Sodium Chloride 0.9% 50ml) 50 ml @ 100 mls/hr Q8HRS IV Last administered on 07/13/16 05:54; Start 07/12/16 at 11: 00 Warfarin Sodium (Coumadin) 6 mg 1X WARF ONCE PO Last administered on 17:58; Start 07/12/16 at 16:00; Stop 07/12/16 at 16:01; Status DC Hydromorphone HCl (Dilaudid) 1 mg PRN Q4HRS PRN IVP PAIN Last administered on 22:25; Start 07/12/16 at 15:30 Polyethylene Glycol (miraLAX PACKET) 17 gm BID PO Last administered on 21:01; Start 07/12/16 at 21:00 Docusate Sodium (Colace) 100 mg PRN DAILY PRN PO CONSTIPATION; Start 07/12/16 at 15:30 Docusate Sodium (Colace) 100 mg DAILY PO ; Start 07/13/16 at 09:00 Magnesium Hydroxide (Milk Of Magnesia) 2,400 mg PRN DAILY PRN PO CONSTIPATION; Start 07/12/16 at 15:30 Gadobutrol (Gadavist) 7 mmol 1X ONCE IV Last administered on 07/13/16 10:45; Start 07/13/16 at 10:45; Stop 07/13/16 at 10:51; Status DC Gadobutrol (Gadavist) 7 mmol 1X ONCE IV Last administered on 07/13/16 10:45; Start 07/13/16 at 10:45; Stop 07/13/16 at 10:51; Status DC Warfarin Sodium (Coumadin) 10 mg 1X WARF ONCE PO ; Start 07/13/16 at 16:00; Stop 07/13/16 at 16:01 Active Scripts Active Phenergan (Promethazine HCl) 25 Mg Supp.rect 25 Mg RC Q8HRS PRN Zofran Odt (Ondansetron) 4 Mg Tab.rapdis 1 Tab SL Q8HRS PRN Vitals/I & O Vital Sign - Last 24 Hours 07/12/16 07/12/16 07/12/16 07/12/16 14:32 14:32 14:59 17:12 Temp 99.1 99.1 Pulse 114 Resp B/P 139/73 Pulse Ox 93 93 93 96 O2 Delivery Room Air Room Air Nasal Cannula Room Air O2 Flow Rate 2.0 2.0 2.0 07/12/16 07/12/16 07/12/16 07/12/16 17:52 18:00 19:00 19:00 Resp 22 O2 Delivery Room Air Room Air O2 Flow Rate 2.0 2.0 07/12/16 07/12/16 07/12/16 07/12/16 19:00 22:25 22:55 23:00 Temp 101.7 100.2 101.7 100.2 Pulse 118 118 Resp B/P 155/71 134/68 Pulse Ox 92 96 96 93 O2 Delivery Nasal Cannula Room Air Room Air Nasal Cannula O2 Flow Rate 2.0 2.0 07/13/16 07/13/16 07/13/16 07/13/16 00:52 01:43 03:00 07:00 Temp 99.3 99.9 99.3 99.9 Pulse 107 115 Resp B/P 133/72 158/57 Pulse Ox 96 96 95 95 O2 Delivery Room Air Room Air Nasal Cannula Room Air O2 Flow Rate 2.0 07/13/16 08:00 O2 Delivery Room Air Intake and Output 07/12/16 07/12/16 07/13/16 15:00 23:00 07:00 Intake Total 360 ml 1600 ml 1290 ml Output Total 1475 ml 350 ml Balance 360 ml 125 ml 940 ml XENIA MARLOW MD Jul 13, 2016 12:39
--- NOTE | 2016-07-13 12:44 | RAD ---
MR CERVICAL SPINE HISTORY:NECK PAIN, OVERALL LEFT SHOULDER PAIN, FEAR OF INFECTION, NO OPEN ULCER, NO SX HX, NO PRIORS, 14ML GADAVIST, PT MEDICATED DUE TO CLAUSTROPHOBIA AND PAIN, PT UNABLE TO REMAIN STILL OR FOLLOW INSTRUCTIONReason: MSSA in urine. Shoulder warmth and pain ? infection . Some RUE weakness / Spl. Instructions: / History: COMPARISON: None Technique: Sagittal T2, sagittal STIR, sagittal T1, and axial gradient echo imaging was obtained of the cervical spine. Postcontrast T1 weighted images were obtained after intravenous administration of gadolinium based contrast. FINDINGS: Alignment and curvature are within normal limits. Vertebral body heights are maintained. Overall bone marrow signal is within normal limits. The postcontrast images are degraded by motion artifact but there is no obvious abnormal intrathecal enhancement. The cord is normal in caliber with no signal abnormality identified. Visualized soft tissues of the neck are within normal limits. At C2-3 there is no spinal stenosis. At C3-4 there is no spinal stenosis. At C4-5 there is a small disc bulge and ligamentum flavum thickening which abuts the ventral and dorsal aspect of the cord but no significant mass effect upon it. At C5-6 there is bilateral uncovertebral hypertrophy causing mild bilateral foraminal narrowing. At C6-7 there is a small disc bulge which abuts the ventral aspect of the cord. There is no significant foraminal stenosis. At C7-T1 there is no spinal stenosis. Impression: - Multilevel mild degenerative disc disease greatest at C4-5 where a disc bulge and ligamentum flavum thickening abuts the ventral and dorsal aspect of the cord without significant mass effect upon it. Electronically signed by: Luis Manuel Warren (Jul 13, 2016 12:43:28)
--- NOTE | 2016-07-13 13:04 | RAD ---
PROCEDURE MR of the left shoulder HISTORY Left shoulder pain. Possible ulcer. Shoulder warmth and pain. TECHNIQUE 14 cc Gadovist. COMPARISON None FINDINGS Moderate to severe motion degradation. Diffuse soft tissue edema and swelling around the shoulder. There is diffuse intramuscular edema and enhancement of the anterior deltoid muscle. Edema and swelling with enhancement is also prominent at the superior shoulder, above the clavicle. There is a small irregular nonenhancing pocket soft tissue above the supraspinatus muscle and also in the region of the outer trapezius muscle. Margins and consistency is difficult to determine due to the extensive motion degradation but these may represent small abscesses. The region of of the supraspinatus measures about 3 cm diameter and the collection in the region of the trapezius measures at least 2 cm diameter. 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 There is mild fluid within the acromioclavicular joint of uncertain sterility, infected content is possible. Mild edema within the outer clavicle is likely just reactive but very mild or early osteomyelitis is difficult to exclude. Small cyst identified at the greater tuberosity of the proximal humerus. No significant glenohumeral joint effusion. Glenohumeral joint does demonstrate primary osteoarthritis. Rotator cuff tendinosis without evidence of a full-thickness rupture. Probable posterosuperior labral tear. IMPRESSION 1. Moderate to severe motion degradation compromises exam accuracy. 2. Extensive soft tissue edema and swelling, could represent cellulitis, greatest superiorly. 3. There are a couple of poorly defined areas of nonenhancing soft tissue, just above the supraspinatus muscle and in the region of the outer trapezius muscle, potentially abscesses or phlegmon. 4. Small acromioclavicular joint effusion of uncertain sterility. Mild subchondral marrow edema at the outer clavicle is probably reactive, but difficult to exclude mild or early osteomyelitis. Electronically signed by: Oscar Alanis MD (Jul 13, 2016 13:02:32)
[2016-07-13] MEDS: ALBUMIN HUMAN 25% 100 ML IV SCH (13:56)
[2016-07-13] MEDS: POLYETHYLENE GLYCOL 3350 17 GM PACKET. PO SCH ×2 (13:57→21:00)
[2016-07-13] MEDS: DOCUSATE SODIUM 100 MG CAPSULE PO SCH (13:58)
[2016-07-13] MEDS: GUAIFENESIN ER 600 MG TABLET.ER PO SCH ×2 (13:58→21:00)
[2016-07-13 15:00] VITALS: BP 124/68
[2016-07-13] MEDS ORDERED: WARFARIN 10 MG TABLET. PO ONE (16:00)
--- NOTE | 2016-07-13 18:01 | PDOC ---
SUBJECTIVE ROS Doign and feeling better overall OBJECTIVE Vital Signs Vital Signs Date Time Temp Pulse Resp B/P Pulse Ox O2 Delivery O2 Flow Rate FiO2 07/13/16 15:35 Room Air 07/13/16 15:00 99.2 115 40 124/68 93 2.0 99.2 I & 0 Intake and Output 07/13/16 07:00 Intake Total 3250 ml Output Total 1825 ml Balance 1425 ml Intake Oral 1050 ml IV Total 2200 ml Output Urine Total 1825 ml PHYSICAL EXAM Physical Exam General Appearance: Awake: Alert Oriented x 3 Neck: No JVD or JVP Chest: CTA [place] Heart: S1 S2 Abdomen - Soft NTND Extremities - No Edema DIAGNOSIS/ASSESSMENT Assessment & Plan Assessment & Plan NELIDA - suspect due to Sev VMN - much Better now. Sev Hypoalbuminemia - suspect due to Poor PO intake over the last few months - not noted to be Proteinuric per se by UA - U Pr/Cr Ratio is WNL Will be available prn - pl call Problems: COMMENT/RELEVANT DATA Meds Current Medications Medications (Trade) Dose Ordered Sig/Luisito Start Time Stop Time Status Last Admin Dose Admin Acetaminophen (Tylenol) 650 mg PRN Q6HRS PRN 07/10/16 13:00 07/10/16 21:47 650 MG Acetaminophen/ Hydrocodone Bitart (Lortab 5/325) 1 tab PRN Q6HRS PRN 07/10/16 13:00 07/13/16 14:00 1 TAB Albumin Human (Albuminar) 100 ml @ 100 mls/hr TID 07/11/16 14:00 07/13/16 09:59 DC 07/13/16 13:56 100 MLS/HR Albuterol Sulfate 2.5 mg 2.5 mg PRN Q4HRS PRN 07/09/16 21:00 Alprazolam (Xanax) 0.5 mg PRN Q8HRS PRN 07/10/16 13:00 07/13/16 00:52 0.5 MG Bupivacaine HCl (Sensorcaine-Mpf 0.25%) 10 ml 1X ONCE 07/12/16 10:30 07/12/16 10:31 DC Cefazolin Sodium 2 gm/Sodium Chloride 50 ml @ 100 mls/hr Q8HRS 07/12/16 11:00 Cancel Cefazolin Sodium/ Sodium Chloride (Ancef/Iv Sodium Chloride 0.9% 50ml) 50 ml @ 100 mls/hr Q8HRS 07/12/16 11:00 07/13/16 13:56 100 MLS/HR Dextrose 12.5 gm 12.5 gm PRN Q15MIN PRN 07/09/16 21:00 Diphenhydramine HCl (Benadryl) 25 mg PRN Q6HRS PRN 07/11/16 01:30 07/13/16 01:52 25 MG Docusate Sodium (Colace) 100 mg DAILY 07/13/16 09:00 07/13/16 13:58 100 MG Enoxaparin Sodium (Lovenox 150mg Syringe) 140 mg BID 07/13/16 21:00 Enoxaparin Sodium (Lovenox Per Pharmacy Treatment Dosing) 1 each PRN DAILY PRN 07/13/16 12:30 Gadobutrol (Gadavist) 7 mmol 1X ONCE 07/13/16 10:45 07/13/16 10:51 DC 07/13/16 10:45 7 MMOL Guaifenesin (Mucinex) 600 mg BID 07/09/16 21:00 07/13/16 13:58 600 MG Heparin Sodium (Porcine) 10,000 unit 1X ONCE 07/12/16 01:15 07/12/16 01:16 DC 07/12/16 01:48 10,000 UNIT Heparin Sodium (Porcine) 5000 unit 5,000 unit Q8HRS 07/10/16 14:00 07/11/16 22:55 DC 07/11/16 14:02 5,000 UNIT Heparin Sodium/ Dextrose 500 ml @ 0 mls/hr CONT PRN 07/11/16 23:00 07/13/16 12:32 DC 07/13/16 12:12 0 MLS/HR Hydromorphone HCl (Dilaudid) 1 mg PRN Q4HRS PRN 07/12/16 15:30 07/12/16 22:25 1 MG Hydromorphone HCl 1 mg 1 mg 1X ONCE 07/12/16 10:30 07/12/16 10:46 DC 07/12/16 10:55 1 MG Info (Anti-Coagulation Monitoring By Pharmacy) 1 each PRN DAILY PRN 07/11/16 23:45 07/12/16 01:37 1 EACH Insulin Aspart (Novolog) 15 units TIDAC 07/13/16 16:30 Insulin Detemir (Levemir) 40 units QHS 07/13/16 21:00 Insulin Detemir 25 units 25 units QHS 07/11/16 21:00 07/12/16 09:17 DC 07/12/16 01:48 25 UNITS Levofloxacin/ Dextrose (LEVAQUIN 500mg PREMIX) 100 ml @ 100 mls/hr Q24H 07/09/16 22:00 07/12/16 10:37 DC 07/12/16 02:49 100 MLS/HR Lorazepam 2 mg 2 mg PRN Q4HRS PRN 07/11/16 01:30 07/13/16 10:19 2 MG Magnesium Hydroxide (Milk Of Magnesia) 2,400 mg PRN DAILY PRN 07/12/16 15:30 Magnesium Sulfate/ Dextrose (Magnesium Sulfate PREMIX 2GM) 50 ml @ 25 mls/hr PRN DAILY PRN 07/10/16 14:00 Methylprednisolone Acetate (Depo-Medrol 40mg Vial) 40 mg 1X ONCE 07/12/16 10:30 07/12/16 10:31 DC Morphine Sulfate 4 mg PRN Q2HR PRN 07/09/16 20:30 07/10/16 13:00 DC 07/10/16 06:36 4 MG Ondansetron HCl (Zofran) 4 mg PRN Q6HRS PRN 07/09/16 21:00 Polyethylene Glycol (miraLAX PACKET) 17 gm BID 07/12/16 21:00 07/13/16 13:57 17 GM Sodium Chloride (Iv Sodium Chloride 0.9% 1000ml Bag) 1,000 ml @ 0 mls/hr 1X ONCE 07/10/16 10:30 07/10/16 10:31 DC 07/10/16 10:27 990 MLS/HR Tramadol HCl (Ultram) 50 mg 1X ONCE 07/12/16 10:15 07/12/16 10:29 DC 07/12/16 14:32 50 MG Warfarin Sodium (Coumadin Per Pharmacy) 1 each PRN DAILY PRN 07/11/16 23:00 07/13/16 12:13 1 EACH Warfarin Sodium (Coumadin) 10 mg 1X WARF ONCE 07/13/16 16:00 07/13/16 16:01 DC Lab Laboratory Tests Test 07/12/16 21:00 07/13/16 01:57 07/13/16 07:21 07/13/16 08:35 Glucose (Fingerstick) 225mg/dL (70-99) 245mg/dL (70-99) White Blood Count 13.1x10^3/uL (4.0-11.0) Red Blood Count 3.80x10^6/uL (4.30-5.70) Hemoglobin 10.5g/dL (13.0-17.5) Hematocrit 32.4% (39.0-53.0) Mean Corpuscular Volume 85fL (79-100) Mean Corpuscular Hemoglobin 28pg (25-35) Mean Corpuscular Hemoglobin Concent 32g/dL (31-37) Red Cell Distribution Width 15.4% (11.5-14.5) Platelet Count 353x10^3/uL (140-400) Neutrophils (%) (Auto) 82% (31-73) Lymphocytes (%) (Auto) 13% (24-48) Monocytes (%) (Auto) 4% (0-9) Eosinophils (%) (Auto) 1% (0-3) Basophils (%) (Auto) 1% (0-3) Neutrophils # (Auto) 10.7x10^3uL (1.8-7.7) Lymphocytes # (Auto) 1.7x10^3/uL (1.0-4.8) Monocytes # (Auto) 0.5x10^3/uL (0.0-1.1) Eosinophils # (Auto) 0.1x10^3/uL (0.0-0.7) Basophils # (Auto) 0.1x10^3/uL (0.0-0.2) Prothrombin Time 16.7SEC (11.7-14.0) Prothromb Time International Ratio 1.4 (0.8-1.1) Heparin Anti-Xa Act, Unfractionated 0.27IU/mL (0.30-0.70) 0.29IU/mL (0.30-0.70) Sodium Level 133mmol/L (136-145) Potassium Level 3.9mmol/L (3.5-5.1) Chloride Level 100mmol/L (98-107) Carbon Dioxide Level 25mmol/L (21-32) Anion Gap 8 (6-14) Blood Urea Nitrogen 18mg/dL (8-26) Creatinine 0.9mg/dL (0.7-1.3) Estimated GFR (Cockcroft-Gault) 87.6 Glucose Level 271mg/dL (70-99) Calcium Level 7.7mg/dL (8.5-10.1) Phosphorus Level 2.9mg/dL (2.6-4.7) Magnesium Level 2.1mg/dL (1.8-2.4) Creatine Kinase 18U/L (39-308) Albumin 2.0g/dL (3.4-5.0) Test 07/13/16 11:59 Glucose (Fingerstick) 326mg/dL (70-99) LINDSEY HELMS MD Jul 13, 2016 18:01
--- NOTE | 2016-07-13 18:02 | PDOC ---
PROGRESS NOTES Subjective Subjective He admits continued neck and shoulder pain. Objective Objective Vital Signs Date Time Temp Pulse Resp B/P Pulse Ox O2 Delivery O2 Flow Rate FiO2 07/13/16 15:35 Room Air 07/13/16 15:00 99.2 115 40 124/68 93 2.0 99.2 Intake and Output 07/13/16 07:00 Intake Total 3250 ml Output Total 1825 ml Balance 1425 ml Intake Oral 1050 ml IV Total 2200 ml Output Urine Total 1825 ml Physical Exam Physical Exam He is supine in bed and his ex- is feeding him and he continues with painfully limited ROM of his shoulders and neck and tenderness to palpation over cervical paraspinal and posterior shoulder girdle muscles and both shoulders and physical and occupational therapy has not seen him yet. Assessment Assessment Problems Medical Problems: (1) Acute renal injury Status: Acute (2) Dehydration Status: Acute (3) Hyponatremia Status: Acute (4) Nausea & vomiting Status: Acute (5) Uncontrolled diabetes mellitus Status: Acute Plan Plan of Care To encourage him to use physical modalities and start moving his shoulders. Comment Review of Relevant I have reviewed the following items madison (where applicable) has been applied. Labs Laboratory Tests Test 07/11/16 19:30 07/11/16 21:38 07/11/16 23:15 07/12/16 03:50 Lactic Acid Level 2.1mmol/L (0.4-2.0) Glucose (Fingerstick) 178mg/dL (70-99) White Blood Count 13.8x10^3/uL (4.0-11.0) 14.7x10^3/uL (4.0-11.0) Red Blood Count 4.07x10^6/uL (4.30-5.70) 3.91x10^6/uL (4.30-5.70) Hemoglobin 11.2g/dL (13.0-17.5) 10.7g/dL (13.0-17.5) Hematocrit 34.3% (39.0-53.0) 33.4% (39.0-53.0) Mean Corpuscular Volume 84fL (79-100) 85fL (79-100) Mean Corpuscular Hemoglobin 28pg (25-35) 27pg (25-35) Mean Corpuscular Hemoglobin Concent 33g/dL (31-37) 32g/dL (31-37) Red Cell Distribution Width 15.6% (11.5-14.5) 15.5% (11.5-14.5) Platelet Count 366x10^3/uL (140-400) 337x10^3/uL (140-400) Prothrombin Time 15.4SEC (11.7-14.0) Prothromb Time International Ratio 1.3 (0.8-1.1) Activated Partial Thromboplast Time 37SEC (24-38) Neutrophils (%) (Auto) 81% (31-73) Lymphocytes (%) (Auto) 14% (24-48) Monocytes (%) (Auto) 4% (0-9) Eosinophils (%) (Auto) 0% (0-3) Basophils (%) (Auto) 0% (0-3) Neutrophils # (Auto) 12.0x10^3uL (1.8-7.7) Lymphocytes # (Auto) 2.0x10^3/uL (1.0-4.8) Monocytes # (Auto) 0.6x10^3/uL (0.0-1.1) Eosinophils # (Auto) 0.1x10^3/uL (0.0-0.7) Basophils # (Auto) 0.1x10^3/uL (0.0-0.2) Sodium Level 134mmol/L (136-145) Potassium Level 3.7mmol/L (3.5-5.1) Chloride Level 99mmol/L (98-107) Carbon Dioxide Level 26mmol/L (21-32) Anion Gap 9 (6-14) Blood Urea Nitrogen 30mg/dL (8-26) Creatinine 0.9mg/dL (0.7-1.3) Estimated GFR (Cockcroft-Gault) 87.6 Glucose Level 241mg/dL (70-99) Calcium Level 7.8mg/dL (8.5-10.1) Phosphorus Level 2.8mg/dL (2.6-4.7) Magnesium Level 2.3mg/dL (1.8-2.4) Creatine Kinase 23U/L (39-308) Albumin 1.9g/dL (3.4-5.0) Thyroid Stimulating Hormone (TSH) 1.484uIU/mL (0.358-3.74) Cortisol AM Sample 11.5ug/dL (6.2-19.4) Test 07/12/16 07:19 07/12/16 09:40 07/12/16 11:08 07/12/16 14:36 Glucose (Fingerstick) 241mg/dL (70-99) 284mg/dL (70-99) 298mg/dL (70-99) Erythrocyte Sedimentation Rate 24 (0-15) Heparin Anti-Xa Act, Unfractionated 0.10IU/mL (0.30-0.70) Uric Acid 1.7mg/dL (3.5-7.2) Test 07/12/16 17:15 07/12/16 17:30 07/12/16 21:00 07/13/16 01:57 Glucose (Fingerstick) 249mg/dL (70-99) 225mg/dL (70-99) Heparin Anti-Xa Act, Unfractionated 0.10IU/mL (0.30-0.70) 0.27IU/mL (0.30-0.70) White Blood Count 13.1x10^3/uL (4.0-11.0) Red Blood Count 3.80x10^6/uL (4.30-5.70) Hemoglobin 10.5g/dL (13.0-17.5) Hematocrit 32.4% (39.0-53.0) Mean Corpuscular Volume 85fL (79-100) Mean Corpuscular Hemoglobin 28pg (25-35) Mean Corpuscular Hemoglobin Concent 32g/dL (31-37) Red Cell Distribution Width 15.4% (11.5-14.5) Platelet Count 353x10^3/uL (140-400) Neutrophils (%) (Auto) 82% (31-73) Lymphocytes (%) (Auto) 13% (24-48) Monocytes (%) (Auto) 4% (0-9) Eosinophils (%) (Auto) 1% (0-3) Basophils (%) (Auto) 1% (0-3) Neutrophils # (Auto) 10.7x10^3uL (1.8-7.7) Lymphocytes # (Auto) 1.7x10^3/uL (1.0-4.8) Monocytes # (Auto) 0.5x10^3/uL (0.0-1.1) Eosinophils # (Auto) 0.1x10^3/uL (0.0-0.7) Basophils # (Auto) 0.1x10^3/uL (0.0-0.2) Prothrombin Time 16.7SEC (11.7-14.0) Prothromb Time International Ratio 1.4 (0.8-1.1) Sodium Level 133mmol/L (136-145) Potassium Level 3.9mmol/L (3.5-5.1) Chloride Level 100mmol/L (98-107) Carbon Dioxide Level 25mmol/L (21-32) Anion Gap 8 (6-14) Blood Urea Nitrogen 18mg/dL (8-26) Creatinine 0.9mg/dL (0.7-1.3) Estimated GFR (Cockcroft-Gault) 87.6 Glucose Level 271mg/dL (70-99) Calcium Level 7.7mg/dL (8.5-10.1) Phosphorus Level 2.9mg/dL (2.6-4.7) Magnesium Level 2.1mg/dL (1.8-2.4) Creatine Kinase 18U/L (39-308) Albumin 2.0g/dL (3.4-5.0) Test 07/13/16 07:21 07/13/16 08:35 07/13/16 11:59 Glucose (Fingerstick) 245mg/dL (70-99) 326mg/dL (70-99) Heparin Anti-Xa Act, Unfractionated 0.29IU/mL (0.30-0.70) Laboratory Tests Test 07/12/16 21:00 07/13/16 01:57 07/13/16 07:21 07/13/16 08:35 Glucose (Fingerstick) 225mg/dL (70-99) 245mg/dL (70-99) White Blood Count 13.1x10^3/uL (4.0-11.0) Red Blood Count 3.80x10^6/uL (4.30-5.70) Hemoglobin 10.5g/dL (13.0-17.5) Hematocrit 32.4% (39.0-53.0) Mean Corpuscular Volume 85fL (79-100) Mean Corpuscular Hemoglobin 28pg (25-35) Mean Corpuscular Hemoglobin Concent 32g/dL (31-37) Red Cell Distribution Width 15.4% (11.5-14.5) Platelet Count 353x10^3/uL (140-400) Neutrophils (%) (Auto) 82% (31-73) Lymphocytes (%) (Auto) 13% (24-48) Monocytes (%) (Auto) 4% (0-9) Eosinophils (%) (Auto) 1% (0-3) Basophils (%) (Auto) 1% (0-3) Neutrophils # (Auto) 10.7x10^3uL (1.8-7.7) Lymphocytes # (Auto) 1.7x10^3/uL (1.0-4.8) Monocytes # (Auto) 0.5x10^3/uL (0.0-1.1) Eosinophils # (Auto) 0.1x10^3/uL (0.0-0.7) Basophils # (Auto) 0.1x10^3/uL (0.0-0.2) Prothrombin Time 16.7SEC (11.7-14.0) Prothromb Time International Ratio 1.4 (0.8-1.1) Heparin Anti-Xa Act, Unfractionated 0.27IU/mL (0.30-0.70) 0.29IU/mL (0.30-0.70) Sodium Level 133mmol/L (136-145) Potassium Level 3.9mmol/L (3.5-5.1) Chloride Level 100mmol/L (98-107) Carbon Dioxide Level 25mmol/L (21-32) Anion Gap 8 (6-14) Blood Urea Nitrogen 18mg/dL (8-26) Creatinine 0.9mg/dL (0.7-1.3) Estimated GFR (Cockcroft-Gault) 87.6 Glucose Level 271mg/dL (70-99) Calcium Level 7.7mg/dL (8.5-10.1) Phosphorus Level 2.9mg/dL (2.6-4.7) Magnesium Level 2.1mg/dL (1.8-2.4) Creatine Kinase 18U/L (39-308) Albumin 2.0g/dL (3.4-5.0) Test 07/13/16 11:59 Glucose (Fingerstick) 326mg/dL (70-99) Microbiology 07/11/16 Blood Culture - Preliminary, Resulted NO GROWTH AFTER 1 DAY 07/09/16 Urine Culture - Final, Complete 07/09/16 Urine Culture Result 1 (EMILI) - Final, Complete 07/09/16 Antimicrobic Susceptibility - Final, Complete Medications Current Medications Sodium Chloride (Iv Sodium Chloride 0.9% 1000ml Bag) 1,000 ml @ 1,000 mls/hr Q1H IV Last administered on 07/09/16 19:34; Start 07/09/16 at 19:18; Stop at 20:17; Status DC Hydromorphone HCl (Dilaudid) 2 mg 1X ONCE IV ; Start 07/09/16 at 19:30; Stop at 19:30; Status DC Ondansetron HCl (Zofran) 4 mg 1X ONCE IV Last administered on 07/09/16 19:33 ; Start 07/09/16 at 19:30; Stop 07/09/16 at 19:31; Status DC Hydromorphone HCl (Dilaudid) 1 mg 1X ONCE IV Last administered on 07/09/16 19 :33; Start 07/09/16 at 19:30; Stop 07/09/16 at 19:31; Status DC Ondansetron HCl (Zofran) 4 mg PRN Q8HRS PRN IV NAUSEA/VOMITING; Start 07/09/16 at 20:30; Stop 07/09/16 at 21:00; Status DC Morphine Sulfate 4 mg 4 mg PRN Q2HR PRN IV PAIN Last administered on 07/10/16 06:36; Start 07/09/16 at 20:30; Stop 07/10/16 at 13:00; Status DC Sodium Chloride (Iv Sodium Chloride 0.9% 1000ml Bag) 1,000 ml @ 150 mls/hr Q6H40M IV Last administered on 07/09/16 20:41; Start 07/09/16 at 20:24; Stop 07/10/16 at 15:29; Status DC Acetaminophen (Tylenol) 650 mg PRN Q4HRS PRN PO FEVER; Start 07/09/16 at 20:30 ; Stop 07/09/16 at 21:00; Status DC Acetaminophen (Tylenol) 650 mg PRN Q6HRS PRN PO FEVER; Start 07/09/16 at 21:00 ; Stop 07/10/16 at 15:28; Status DC Ondansetron HCl 4 mg 4 mg PRN Q6HRS PRN IV NAUSEA/VOMITING; Start 07/09/16 at 21:00 Sodium Chloride (Iv Sodium Chloride 0.9% 1000ml Bag) 1,000 ml @ 150 mls/hr Q6H40M IV Last administered on 07/13/16 05:57; Start 07/09/16 at 21:00 Insulin Aspart (Novolog) 0-9 UNITS TIDWMEALS SQ Last administered on 07/13/16 12:11; Start 07/10/16 at 08:00 Dextrose 12.5 gm 12.5 gm PRN Q15MIN PRN IV SEE COMMENTS; Start 07/09/16 at 21: 00 Levofloxacin/ Dextrose (LEVAQUIN 500mg PREMIX) 100 ml @ 100 mls/hr Q24H IV Last administered on 07/12/16 02:49; Start 07/09/16 at 22:00; Stop 07/12/16 at 10:37; Status DC Guaifenesin (Mucinex) 600 mg BID PO Last administered on 07/13/16 13:58; Start 07/09/16 at 21:00 Albuterol Sulfate 2.5 mg 2.5 mg PRN Q4HRS PRN NEB SHORTNESS OF BREATH; Start at 21:00 Sodium Chloride (Iv Sodium Chloride 0.9% 1000ml Bag) 1,000 ml @ 0 mls/hr 1X ONCE IV Last administered on 07/10/16 10:27; Start 07/10/16 at 10:30; Stop at 10:31; Status DC Alprazolam (Xanax) 0.5 mg PRN Q8HRS PRN PO ANXIETY / AGITATION Last administered on 07/13/16 00:52; Start 07/10/16 at 13:00 Acetaminophen/ Hydrocodone Bitart (Lortab 5/325) 1 tab PRN Q6HRS PRN PO MODERATE - SEVERE PAIN Last administered on 07/13/16 14:00; Start 07/10/16 at 13:00 Acetaminophen (Tylenol) 650 mg PRN Q6HRS PRN PO MILD PAIN / TEMP Last administered on 07/10/16 21:47; Start 07/10/16 at 13:00 Heparin Sodium (Porcine) 5000 unit 5,000 unit Q8HRS SQ Last administered on 14:02; Start 07/10/16 at 14:00; Stop 07/11/16 at 22:55; Status DC Magnesium Sulfate/ Dextrose (Magnesium Sulfate PREMIX 2GM) 50 ml @ 25 mls/hr PRN DAILY PRN IV for Mag < 1.7 on am labs; Start 07/10/16 at 14:00 Diphenhydramine HCl (Benadryl) 25 mg PRN Q6HRS PRN IVP ITCHING Last administered on 07/13/16 01:52; Start 07/11/16 at 01:30 Lorazepam 2 mg 2 mg PRN Q4HRS PRN IV ANXIETY / AGITATION Last administered on 10:19; Start 07/11/16 at 01:30 Albumin Human (Albuminar) 100 ml @ 100 mls/hr TID IV Last administered on 07/13 13:56; Start 07/11/16 at 14:00; Stop 07/13/16 at 09:59; Status DC Insulin Aspart (Novolog) 10 units TIDAC SQ Last administered on 07/12/16 08:46 ; Start 07/11/16 at 12:30; Stop 07/12/16 at 09:17; Status DC Insulin Detemir 25 units 25 units QHS SQ Last administered on 07/12/16 01:48; Start 07/11/16 at 21:00; Stop 07/12/16 at 09:17; Status DC Heparin Sodium/ Dextrose 500 ml @ 0 mls/hr CONT PRN IV SEE I/O RECORD Last administered on 07/13/16 12:12; Start 07/11/16 at 23:00; Stop 07/13/16 at 12:32 ; Status DC Heparin Sodium (Porcine) 3,800 unit PRN Q6HRS PRN IV FOR UFH LEVEL LESS THAN 0.2 Last administered on 07/12/16 19:37; Start 07/11/16 at 23:00; Stop at 12:32; Status DC Heparin Sodium (Porcine) 1,900 unit PRN Q6HRS PRN IV FOR UFH LEVEL 0.2 - 0.29 Last administered on 07/13/16 02:33; Start 07/11/16 at 23:00; Stop 07/13/16 at 12:32; Status DC Warfarin Sodium (Coumadin Per Pharmacy) 1 each PRN DAILY PRN MC PER PROTOCOL Last administered on 07/13/16 12:13; Start 07/11/16 at 23:00 Warfarin Sodium (Coumadin) 5 mg 1X ONCE PO Last administered on 07/12/16 01: 45; Start 07/12/16 at 00:15; Stop 07/12/16 at 00:16; Status DC Info (Anti-Coagulation Monitoring By Pharmacy) 1 each PRN DAILY PRN MC SEE COMMENTS Last administered on 07/12/16 01:37; Start 07/11/16 at 23:45 Heparin Sodium (Porcine) 10,000 unit 1X ONCE IV Last administered on 01:48; Start 07/12/16 at 01:15; Stop 07/12/16 at 01:16; Status DC Insulin Aspart (Novolog) 12 units TIDAC SQ Last administered on 07/13/16 12:08 ; Start 07/12/16 at 11:30; Stop 07/13/16 at 12:32; Status DC Insulin Detemir (Levemir) 30 units QHS SQ Last administered on 07/12/16 21:07 ; Start 07/12/16 at 21:00; Stop 07/13/16 at 12:32; Status DC Tramadol HCl (Ultram) 50 mg PRN Q6HRS PRN PO PAIN; Start 07/12/16 at 10:15 Tramadol HCl (Ultram) 50 mg 1X ONCE PO Last administered on 07/12/16 14:32; Start 07/12/16 at 10:15; Stop 07/12/16 at 10:29; Status DC Methylprednisolone Acetate (Depo-Medrol 40mg Vial) 40 mg 1X ONCE IM ; Start at 10:30; Stop 07/12/16 at 10:31; Status DC Bupivacaine HCl (Sensorcaine-Mpf 0.25%) 10 ml 1X ONCE IJ ; Start 07/12/16 at 10 :30; Stop 07/12/16 at 10:31; Status DC Hydromorphone HCl 1 mg 1 mg 1X ONCE IV Last administered on 07/12/16 10:55; Start 07/12/16 at 10:30; Stop 07/12/16 at 10:46; Status DC Cefazolin Sodium 2 gm/Sodium Chloride 50 ml @ 100 mls/hr Q8HRS IV ; Start 07/12 at 11:00; Status Cancel Cefazolin Sodium/ Sodium Chloride (Ancef/Iv Sodium Chloride 0.9% 50ml) 50 ml @ 100 mls/hr Q8HRS IV Last administered on 07/13/16 13:56; Start 07/12/16 at 11: 00 Warfarin Sodium (Coumadin) 6 mg 1X WARF ONCE PO Last administered on 17:58; Start 07/12/16 at 16:00; Stop 07/12/16 at 16:01; Status DC Hydromorphone HCl (Dilaudid) 1 mg PRN Q4HRS PRN IVP PAIN Last administered on 22:25; Start 07/12/16 at 15:30 Polyethylene Glycol (miraLAX PACKET) 17 gm BID PO Last administered on 13:57; Start 07/12/16 at 21:00 Docusate Sodium (Colace) 100 mg PRN DAILY PRN PO CONSTIPATION; Start 07/12/16 at 15:30 Docusate Sodium (Colace) 100 mg DAILY PO Last administered on 07/13/16 13:58; Start 07/13/16 at 09:00 Magnesium Hydroxide (Milk Of Magnesia) 2,400 mg PRN DAILY PRN PO CONSTIPATION; Start 07/12/16 at 15:30 Gadobutrol (Gadavist) 7 mmol 1X ONCE IV Last administered on 07/13/16 10:45; Start 07/13/16 at 10:45; Stop 07/13/16 at 10:51; Status DC Gadobutrol (Gadavist) 7 mmol 1X ONCE IV Last administered on 07/13/16 10:45; Start 07/13/16 at 10:45; Stop 07/13/16 at 10:51; Status DC Warfarin Sodium (Coumadin) 10 mg 1X WARF ONCE PO ; Start 07/13/16 at 16:00; Stop 07/13/16 at 16:01; Status DC Enoxaparin Sodium (Lovenox Per Pharmacy Treatment Dosing) 1 each PRN DAILY PRN MC SEE COMMENTS; Start 07/13/16 at 12:30 Insulin Aspart (Novolog) 15 units TIDAC SQ ; Start 07/13/16 at 16:30 Insulin Detemir (Levemir) 40 units QHS SQ ; Start 07/13/16 at 21:00 Enoxaparin Sodium (Lovenox 150mg Syringe) 140 mg BID SQ ; Start 07/13/16 at 21: 00 Active Scripts Active Phenergan (Promethazine HCl) 25 Mg Supp.rect 25 Mg RC Q8HRS PRN Zofran Odt (Ondansetron) 4 Mg Tab.rapdis 1 Tab SL Q8HRS PRN Vitals/I & O Vital Sign - Last 24 Hours 07/12/16 07/12/16 07/12/16 07/12/16 18:00 19:00 19:00 19:00 Temp 101.7 101.7 Pulse 118 Resp 19 B/P 155/71 Pulse Ox 92 O2 Delivery Room Air Nasal Cannula O2 Flow Rate 2.0 2.0 2.0 07/12/16 07/12/16 07/12/16 07/13/16 22:25 22:55 23:00 00:52 Temp 100.2 100.2 Pulse 118 Resp B/P 134/68 Pulse Ox 96 96 93 96 O2 Delivery Room Air Room Air Nasal Cannula Room Air O2 Flow Rate 2.0 07/13/16 07/13/16 07/13/16 07/13/16 01:43 03:00 07:00 08:00 Temp 99.3 99.9 99.3 99.9 Pulse 107 115 Resp B/P 133/72 158/57 Pulse Ox 96 95 95 O2 Delivery Nasal Cannula Room Air Room Air O2 Flow Rate 2.0 07/13/16 07/13/16 07/13/16 07/13/16 08:00 14:00 15:00 15:35 Temp 99.2 99.2 Pulse 115 Resp 24 40 B/P 124/68 Pulse Ox 93 O2 Delivery Room Air Room Air Nasal Cannula Room Air O2 Flow Rate 2.0 Intake and Output 07/12/16 07/12/16 07/13/16 15:00 23:00 07:00 Intake Total 360 ml 1600 ml 1290 ml Output Total 1475 ml 350 ml Balance 360 ml 125 ml 940 ml CLIFFORD BURGOS MD Jul 13, 2016 18:02
[2016-07-13 19:00] VITALS: BP 139/76
[2016-07-13] MEDS: ENOXAPARIN ** NOTE DOSE ** SYRINGE SQ SCH (21:01)
[2016-07-13] MEDS: INSULIN DETEMIR 300 UNITS/3 ML INSULN.PEN. SQ SCH (21:12)
[2016-07-13 23:00] VITALS: BP 124/62
[2016-07-14] VITALS (11 sets, daily range): BP systolic 116–152; BP diastolic 60–82
[2016-07-14] MEDS: ACETAMINOPHEN 325 MG TABLET. PO PRN (00:08)
[2016-07-14] MEDS: HYDROCODONE/APAP 5/325MG TABLET. PO PRN ×2 (02:31→22:07)
[2016-07-14] MEDS: CEFAZOLIN SODIUM IV SCH ×3 (05:18→20:50)
[2016-07-14] MEDS: NORMAL SALINE IV SCH ×3 (05:18→20:50)
--- NOTE | 2016-07-14 06:03 | CONS ---
DATE OF CONSULTATION: 07/13/2016 DIAGNOSIS: Onychomycosis, bilateral foot. HISTORY OF PRESENT ILLNESS: The patient is a 55-year-old male, was admitted to [facility]. While under the care of his physicians, it was noted that he had elongated, dystrophic appearing toenails. With his underlying history of diabetes mellitus, they felt it was appropriate to request a Podiatry consultation. PAST MEDICAL HISTORY: Includes diabetes mellitus, renal insufficiency, others as noted in the patient's chart. CURRENT MEDICATIONS: As noted in patient's chart, which is reviewed today. ALLERGIES: As noted in the patient's chart. PHYSICAL EXAMINATION: Lower extremities vasculature: Palpable dorsalis pedis pulse, left foot. Nonpalpable dorsalis pedis pulse right foot. Nonpalpable posterior tibial pulse bilateral foot. +3 pitting pretibial and ankle edema bilateral lower extremity. Integument: The left hallux nail is thickened, discolored with distal onycholysis and subungual debris in addition to bilateral second digit toenails. In addition, the hallux nails are markedly incurvated bilateral border. No open lesions or eruptions appreciated. No impending signs of breakdown. Neurologic: I attempted to perform a [place] monofilament test on the patient. He was either tired or bit confused and thus was unable to properly answer left, right to my questioning. Musculoskeletal: Noncontributory. RECOMMENDATIONS: Discussed the patient's treatment options. Debrided all nails manually with a tissue nipper. Recommended that he seek podiatric attention in approximately 2-1/2 months for followup. Recommended that he use accommodative appropriate shoe gear at all times. VICKIE MCDANIEL DPM DR: MARLENA/luke JOB#: [id number] / [id number]
[2016-07-14 06:50] LABS: BASO % 0 % (0-3); EOS % 1 % (0-3); HEMATOCRIT 31.9 % (39.0-53.0); HEMOGLOBIN 10.3 g/dL (13.0-17.5); LYMPH # 1.7 x10^3/uL (1.0-4.8); LYMPH % 18 % (24-48); MEAN CORPUSCULAR HEMOGLOBIN 28 pg (25-35); MEAN CORPUSCULAR HGB CONC 32 g/dL (31-37); MEAN CORPUSCULAR VOLUME 86 fL (79-100); MONO % 4 % (0-9); NEUT % 76 % (31-73); PLATELET COUNT 372 x10^3/uL (140-400); RED BLOOD COUNT 3.72 x10^6/uL (4.30-5.70); RED CELL DISTRIBUTION WIDTH 15.7 % (11.5-14.5); WHITE BLOOD COUNT 9.7 x10^3/uL (4.0-11.0)
[2016-07-14 07:05] LABS: INR 1.6 (0.8-1.1); PROTHROMBIN TIME PATIENT 17.7 SEC (11.7-14.0)
[2016-07-14 07:19] LABS: ALBUMIN 1.8 g/dL (3.4-5.0); CALCIUM 7.9 mg/dL (8.5-10.1); CREATININE 0.9 mg/dL (0.7-1.3); GFR 87.6; POTASSIUM 3.8 mmol/L (3.5-5.1)
[2016-07-14 07:29] LABS: MAGNESIUM 2.1 mg/dL (1.8-2.4)
--- NOTE | 2016-07-14 08:32 | PDOC ---
PULMONARY PROGRESS NOTES Subjective no soa Vitals Vital Signs Date Time Temp Pulse Resp B/P Pulse Ox O2 Delivery O2 Flow Rate FiO2 07/14/16 03:14 98.5 100 20 116/69 95 Room Air 98.5 07/13/16 15:00 2.0 General: Alert, No acute distress Lungs: Clear Cardiovascular: S1 Abdomen: Soft Neuro Exam: Alert Extremities: No Edema Skin: Warm Labs Laboratory Tests Test 07/12/16 09:40 07/12/16 11:08 07/12/16 14:36 07/12/16 17:15 Erythrocyte Sedimentation Rate 24 (0-15) Heparin Anti-Xa Act, Unfractionated 0.10IU/mL (0.30-0.70) Uric Acid 1.7mg/dL (3.5-7.2) Glucose (Fingerstick) 284mg/dL (70-99) 298mg/dL (70-99) 249mg/dL (70-99) Test 07/12/16 17:30 07/12/16 21:00 07/13/16 01:57 07/13/16 07:21 Heparin Anti-Xa Act, Unfractionated 0.10IU/mL (0.30-0.70) 0.27IU/mL (0.30-0.70) Glucose (Fingerstick) 225mg/dL (70-99) 245mg/dL (70-99) White Blood Count 13.1x10^3/uL (4.0-11.0) Red Blood Count 3.80x10^6/uL (4.30-5.70) Hemoglobin 10.5g/dL (13.0-17.5) Hematocrit 32.4% (39.0-53.0) Mean Corpuscular Volume 85fL (79-100) Mean Corpuscular Hemoglobin 28pg (25-35) Mean Corpuscular Hemoglobin Concent 32g/dL (31-37) Red Cell Distribution Width 15.4% (11.5-14.5) Platelet Count 353x10^3/uL (140-400) Neutrophils (%) (Auto) 82% (31-73) Lymphocytes (%) (Auto) 13% (24-48) Monocytes (%) (Auto) 4% (0-9) Eosinophils (%) (Auto) 1% (0-3) Basophils (%) (Auto) 1% (0-3) Neutrophils # (Auto) 10.7x10^3uL (1.8-7.7) Lymphocytes # (Auto) 1.7x10^3/uL (1.0-4.8) Monocytes # (Auto) 0.5x10^3/uL (0.0-1.1) Eosinophils # (Auto) 0.1x10^3/uL (0.0-0.7) Basophils # (Auto) 0.1x10^3/uL (0.0-0.2) Prothrombin Time 16.7SEC (11.7-14.0) Prothromb Time International Ratio 1.4 (0.8-1.1) Sodium Level 133mmol/L (136-145) Potassium Level 3.9mmol/L (3.5-5.1) Chloride Level 100mmol/L (98-107) Carbon Dioxide Level 25mmol/L (21-32) Anion Gap 8 (6-14) Blood Urea Nitrogen 18mg/dL (8-26) Creatinine 0.9mg/dL (0.7-1.3) Estimated GFR (Cockcroft-Gault) 87.6 Glucose Level 271mg/dL (70-99) Calcium Level 7.7mg/dL (8.5-10.1) Phosphorus Level 2.9mg/dL (2.6-4.7) Magnesium Level 2.1mg/dL (1.8-2.4) Creatine Kinase 18U/L (39-308) Albumin 2.0g/dL (3.4-5.0) Test 07/13/16 08:35 07/13/16 11:59 07/13/16 17:11 07/13/16 19:30 Heparin Anti-Xa Act, Unfractionated 0.29IU/mL (0.30-0.70) < 0.10IU/mL (0.30-0.70) Glucose (Fingerstick) 326mg/dL (70-99) 235mg/dL (70-99) Test 07/13/16 20:27 07/14/16 06:05 Glucose (Fingerstick) 242mg/dL (70-99) White Blood Count 9.7x10^3/uL (4.0-11.0) Red Blood Count 3.72x10^6/uL (4.30-5.70) Hemoglobin 10.3g/dL (13.0-17.5) Hematocrit 31.9% (39.0-53.0) Mean Corpuscular Volume 86fL (79-100) Mean Corpuscular Hemoglobin 28pg (25-35) Mean Corpuscular Hemoglobin Concent 32g/dL (31-37) Red Cell Distribution Width 15.7% (11.5-14.5) Platelet Count 372x10^3/uL (140-400) Neutrophils (%) (Auto) 76% (31-73) Lymphocytes (%) (Auto) 18% (24-48) Monocytes (%) (Auto) 4% (0-9) Eosinophils (%) (Auto) 1% (0-3) Basophils (%) (Auto) 0% (0-3) Neutrophils # (Auto) 7.4x10^3uL (1.8-7.7) Lymphocytes # (Auto) 1.7x10^3/uL (1.0-4.8) Monocytes # (Auto) 0.4x10^3/uL (0.0-1.1) Eosinophils # (Auto) 0.1x10^3/uL (0.0-0.7) Basophils # (Auto) 0.0x10^3/uL (0.0-0.2) Prothrombin Time 17.7SEC (11.7-14.0) Prothromb Time International Ratio 1.6 (0.8-1.1) Sodium Level 136mmol/L (136-145) Potassium Level 3.8mmol/L (3.5-5.1) Chloride Level 103mmol/L (98-107) Carbon Dioxide Level 26mmol/L (21-32) Anion Gap 7 (6-14) Blood Urea Nitrogen 18mg/dL (8-26) Creatinine 0.9mg/dL (0.7-1.3) Estimated GFR (Cockcroft-Gault) 87.6 Glucose Level 206mg/dL (70-99) Calcium Level 7.9mg/dL (8.5-10.1) Phosphorus Level 3.0mg/dL (2.6-4.7) Magnesium Level 2.1mg/dL (1.8-2.4) Creatine Kinase 13U/L (39-308) Albumin 1.8g/dL (3.4-5.0) Laboratory Tests Test 07/13/16 08:35 07/13/16 11:59 07/13/16 17:11 07/13/16 19:30 Heparin Anti-Xa Act, Unfractionated 0.29IU/mL (0.30-0.70) < 0.10IU/mL (0.30-0.70) Glucose (Fingerstick) 326mg/dL (70-99) 235mg/dL (70-99) Test 07/13/16 20:27 07/14/16 06:05 Glucose (Fingerstick) 242mg/dL (70-99) White Blood Count 9.7x10^3/uL (4.0-11.0) Red Blood Count 3.72x10^6/uL (4.30-5.70) Hemoglobin 10.3g/dL (13.0-17.5) Hematocrit 31.9% (39.0-53.0) Mean Corpuscular Volume 86fL (79-100) Mean Corpuscular Hemoglobin 28pg (25-35) Mean Corpuscular Hemoglobin Concent 32g/dL (31-37) Red Cell Distribution Width 15.7% (11.5-14.5) Platelet Count 372x10^3/uL (140-400) Neutrophils (%) (Auto) 76% (31-73) Lymphocytes (%) (Auto) 18% (24-48) Monocytes (%) (Auto) 4% (0-9) Eosinophils (%) (Auto) 1% (0-3) Basophils (%) (Auto) 0% (0-3) Neutrophils # (Auto) 7.4x10^3uL (1.8-7.7) Lymphocytes # (Auto) 1.7x10^3/uL (1.0-4.8) Monocytes # (Auto) 0.4x10^3/uL (0.0-1.1) Eosinophils # (Auto) 0.1x10^3/uL (0.0-0.7) Basophils # (Auto) 0.0x10^3/uL (0.0-0.2) Prothrombin Time 17.7SEC (11.7-14.0) Prothromb Time International Ratio 1.6 (0.8-1.1) Sodium Level 136mmol/L (136-145) Potassium Level 3.8mmol/L (3.5-5.1) Chloride Level 103mmol/L (98-107) Carbon Dioxide Level 26mmol/L (21-32) Anion Gap 7 (6-14) Blood Urea Nitrogen 18mg/dL (8-26) Creatinine 0.9mg/dL (0.7-1.3) Estimated GFR (Cockcroft-Gault) 87.6 Glucose Level 206mg/dL (70-99) Calcium Level 7.9mg/dL (8.5-10.1) Phosphorus Level 3.0mg/dL (2.6-4.7) Magnesium Level 2.1mg/dL (1.8-2.4) Creatine Kinase 13U/L (39-308) Albumin 1.8g/dL (3.4-5.0) Medications Active Scripts Medications Dose Route/Sig Days Date Category Phenergan (Promethazine HCl) 25 Mg Supp.rect 25 Mg RC Q8HRS PRN 07/02/16 Rx Zofran Odt (Ondansetron) 4 Mg Tab.rapdis 1 Tab SL Q8HRS PRN 07/02/16 Rx Impression . 1. Abnormal CT of the chest revealing 1.3 cm nodule in the left lower lobe in a patient who has never smoked. 2. fever per Infectious Disease. 3. Staphylococcus aureus in the urine. 4. No evidence of septic emboli on current CT of the chest. Plan . From a pulmonary standpoint of view, the patient is doing well. I discussed the above findings with his . I recommend followup CT of the chest in 3 months. she will make an appointment with Dr Espitia in October with ct chest prior to visit TULIO LAGOS MD Jul 14, 2016 08:32
[2016-07-14] MEDS: POLYETHYLENE GLYCOL 3350 17 GM PACKET. PO SCH ×2 (08:34→21:00)
[2016-07-14] MEDS: ENOXAPARIN ** NOTE DOSE ** SYRINGE SQ SCH ×2 (08:35→21:00)
[2016-07-14] MEDS: DOCUSATE SODIUM 100 MG CAPSULE PO SCH (08:35)
[2016-07-14] MEDS: GUAIFENESIN ER 600 MG TABLET.ER PO SCH ×2 (08:35→21:00)
[2016-07-14] MEDS: INSULIN ASPART 300 UNITS/3 ML INSULN.PEN SQ SCH ×7 (08:50→21:05)
--- NOTE | 2016-07-14 10:10 | PDOC ---
PROGRESS NOTES Subjective Subjective He continues with pain left shoulder. Objective Objective Vital Signs Date Time Temp Pulse Resp B/P Pulse Ox O2 Delivery O2 Flow Rate FiO2 07/14/16 07:00 97.7 87 18 132/62 96 Room Air 97.7 07/13/16 15:00 2.0 Intake and Output 07/14/16 07:00 Intake Total 340 ml Output Total 750 ml Balance -410 ml Intake Oral 240 ml IV Total 100 ml Output Urine Total 750 ml Physical Exam Physical Exam He is sitting up in bedside chair and he continues with tenderness to palpation over left shoulder and left posterior shoulder girdle muscles and painfully limited ROM of left shoulder. Assessment Assessment Problems Medical Problems: (1) Acute renal injury Status: Acute (2) Dehydration Status: Acute (3) Hyponatremia Status: Acute (4) Nausea & vomiting Status: Acute (5) Uncontrolled diabetes mellitus Status: Acute Plan Plan of Care Await orthopedic advise,I thought of injecting his left shoulder if physical and occupational therapy does not help. Comment Review of Relevant I have reviewed the following items madison (where applicable) has been applied. Labs Laboratory Tests Test 07/12/16 11:08 07/12/16 14:36 07/12/16 17:15 07/12/16 17:30 Glucose (Fingerstick) 284mg/dL (70-99) 298mg/dL (70-99) 249mg/dL (70-99) Heparin Anti-Xa Act, Unfractionated 0.10IU/mL (0.30-0.70) Test 07/12/16 21:00 07/13/16 01:57 07/13/16 07:21 07/13/16 08:35 Glucose (Fingerstick) 225mg/dL (70-99) 245mg/dL (70-99) White Blood Count 13.1x10^3/uL (4.0-11.0) Red Blood Count 3.80x10^6/uL (4.30-5.70) Hemoglobin 10.5g/dL (13.0-17.5) Hematocrit 32.4% (39.0-53.0) Mean Corpuscular Volume 85fL (79-100) Mean Corpuscular Hemoglobin 28pg (25-35) Mean Corpuscular Hemoglobin Concent 32g/dL (31-37) Red Cell Distribution Width 15.4% (11.5-14.5) Platelet Count 353x10^3/uL (140-400) Neutrophils (%) (Auto) 82% (31-73) Lymphocytes (%) (Auto) 13% (24-48) Monocytes (%) (Auto) 4% (0-9) Eosinophils (%) (Auto) 1% (0-3) Basophils (%) (Auto) 1% (0-3) Neutrophils # (Auto) 10.7x10^3uL (1.8-7.7) Lymphocytes # (Auto) 1.7x10^3/uL (1.0-4.8) Monocytes # (Auto) 0.5x10^3/uL (0.0-1.1) Eosinophils # (Auto) 0.1x10^3/uL (0.0-0.7) Basophils # (Auto) 0.1x10^3/uL (0.0-0.2) Prothrombin Time 16.7SEC (11.7-14.0) Prothromb Time International Ratio 1.4 (0.8-1.1) Heparin Anti-Xa Act, Unfractionated 0.27IU/mL (0.30-0.70) 0.29IU/mL (0.30-0.70) Sodium Level 133mmol/L (136-145) Potassium Level 3.9mmol/L (3.5-5.1) Chloride Level 100mmol/L (98-107) Carbon Dioxide Level 25mmol/L (21-32) Anion Gap 8 (6-14) Blood Urea Nitrogen 18mg/dL (8-26) Creatinine 0.9mg/dL (0.7-1.3) Estimated GFR (Cockcroft-Gault) 87.6 Glucose Level 271mg/dL (70-99) Calcium Level 7.7mg/dL (8.5-10.1) Phosphorus Level 2.9mg/dL (2.6-4.7) Magnesium Level 2.1mg/dL (1.8-2.4) Creatine Kinase 18U/L (39-308) Albumin 2.0g/dL (3.4-5.0) Test 07/13/16 11:59 07/13/16 17:11 07/13/16 19:30 07/13/16 20:27 Glucose (Fingerstick) 326mg/dL (70-99) 235mg/dL (70-99) 242mg/dL (70-99) Heparin Anti-Xa Act, Unfractionated < 0.10IU/mL (0.30-0.70) Test 07/14/16 06:05 07/14/16 08:33 White Blood Count 9.7x10^3/uL (4.0-11.0) Red Blood Count 3.72x10^6/uL (4.30-5.70) Hemoglobin 10.3g/dL (13.0-17.5) Hematocrit 31.9% (39.0-53.0) Mean Corpuscular Volume 86fL (79-100) Mean Corpuscular Hemoglobin 28pg (25-35) Mean Corpuscular Hemoglobin Concent 32g/dL (31-37) Red Cell Distribution Width 15.7% (11.5-14.5) Platelet Count 372x10^3/uL (140-400) Neutrophils (%) (Auto) 76% (31-73) Lymphocytes (%) (Auto) 18% (24-48) Monocytes (%) (Auto) 4% (0-9) Eosinophils (%) (Auto) 1% (0-3) Basophils (%) (Auto) 0% (0-3) Neutrophils # (Auto) 7.4x10^3uL (1.8-7.7) Lymphocytes # (Auto) 1.7x10^3/uL (1.0-4.8) Monocytes # (Auto) 0.4x10^3/uL (0.0-1.1) Eosinophils # (Auto) 0.1x10^3/uL (0.0-0.7) Basophils # (Auto) 0.0x10^3/uL (0.0-0.2) Prothrombin Time 17.7SEC (11.7-14.0) Prothromb Time International Ratio 1.6 (0.8-1.1) Sodium Level 136mmol/L (136-145) Potassium Level 3.8mmol/L (3.5-5.1) Chloride Level 103mmol/L (98-107) Carbon Dioxide Level 26mmol/L (21-32) Anion Gap 7 (6-14) Blood Urea Nitrogen 18mg/dL (8-26) Creatinine 0.9mg/dL (0.7-1.3) Estimated GFR (Cockcroft-Gault) 87.6 Glucose Level 206mg/dL (70-99) Calcium Level 7.9mg/dL (8.5-10.1) Phosphorus Level 3.0mg/dL (2.6-4.7) Magnesium Level 2.1mg/dL (1.8-2.4) Creatine Kinase 13U/L (39-308) Albumin 1.8g/dL (3.4-5.0) Glucose (Fingerstick) 189mg/dL (70-99) Laboratory Tests Test 07/13/16 11:59 07/13/16 17:11 07/13/16 19:30 07/13/16 20:27 Glucose (Fingerstick) 326mg/dL (70-99) 235mg/dL (70-99) 242mg/dL (70-99) Heparin Anti-Xa Act, Unfractionated < 0.10IU/mL (0.30-0.70) Test 07/14/16 06:05 07/14/16 08:33 White Blood Count 9.7x10^3/uL (4.0-11.0) Red Blood Count 3.72x10^6/uL (4.30-5.70) Hemoglobin 10.3g/dL (13.0-17.5) Hematocrit 31.9% (39.0-53.0) Mean Corpuscular Volume 86fL (79-100) Mean Corpuscular Hemoglobin 28pg (25-35) Mean Corpuscular Hemoglobin Concent 32g/dL (31-37) Red Cell Distribution Width 15.7% (11.5-14.5) Platelet Count 372x10^3/uL (140-400) Neutrophils (%) (Auto) 76% (31-73) Lymphocytes (%) (Auto) 18% (24-48) Monocytes (%) (Auto) 4% (0-9) Eosinophils (%) (Auto) 1% (0-3) Basophils (%) (Auto) 0% (0-3) Neutrophils # (Auto) 7.4x10^3uL (1.8-7.7) Lymphocytes # (Auto) 1.7x10^3/uL (1.0-4.8) Monocytes # (Auto) 0.4x10^3/uL (0.0-1.1) Eosinophils # (Auto) 0.1x10^3/uL (0.0-0.7) Basophils # (Auto) 0.0x10^3/uL (0.0-0.2) Prothrombin Time 17.7SEC (11.7-14.0) Prothromb Time International Ratio 1.6 (0.8-1.1) Sodium Level 136mmol/L (136-145) Potassium Level 3.8mmol/L (3.5-5.1) Chloride Level 103mmol/L (98-107) Carbon Dioxide Level 26mmol/L (21-32) Anion Gap 7 (6-14) Blood Urea Nitrogen 18mg/dL (8-26) Creatinine 0.9mg/dL (0.7-1.3) Estimated GFR (Cockcroft-Gault) 87.6 Glucose Level 206mg/dL (70-99) Calcium Level 7.9mg/dL (8.5-10.1) Phosphorus Level 3.0mg/dL (2.6-4.7) Magnesium Level 2.1mg/dL (1.8-2.4) Creatine Kinase 13U/L (39-308) Albumin 1.8g/dL (3.4-5.0) Glucose (Fingerstick) 189mg/dL (70-99) Microbiology 07/11/16 Blood Culture - Preliminary, Resulted NO GROWTH AFTER 2 DAYS 07/09/16 Urine Culture - Final, Complete 07/09/16 Urine Culture Result 1 (EMILI) - Final, Complete 07/09/16 Antimicrobic Susceptibility - Final, Complete Medications Current Medications Sodium Chloride (Iv Sodium Chloride 0.9% 1000ml Bag) 1,000 ml @ 1,000 mls/hr Q1H IV Last administered on 07/09/16t 19:34; Start 07/09/16 at 19:18; Stop at 20:17; Status DC Hydromorphone HCl (Dilaudid) 2 mg 1X ONCE IV ; Start 07/09/16 at 19:30; Stop at 19:30; Status DC Ondansetron HCl (Zofran) 4 mg 1X ONCE IV Last administered on 07/09/16 19:33 ; Start 07/09/16 at 19:30; Stop 07/09/16 at 19:31; Status DC Hydromorphone HCl (Dilaudid) 1 mg 1X ONCE IV Last administered on 07/09/16 19 :33; Start 07/09/16 at 19:30; Stop 07/09/16 at 19:31; Status DC Ondansetron HCl (Zofran) 4 mg PRN Q8HRS PRN IV NAUSEA/VOMITING; Start 07/09/16 at 20:30; Stop 07/09/16 at 21:00; Status DC Morphine Sulfate 4 mg 4 mg PRN Q2HR PRN IV PAIN Last administered on 07/10/16 06:36; Start 07/09/16 at 20:30; Stop 07/10/16 at 13:00; Status DC Sodium Chloride (Iv Sodium Chloride 0.9% 1000ml Bag) 1,000 ml @ 150 mls/hr Q6H40M IV Last administered on 07/09/16 20:41; Start 07/09/16 at 20:24; Stop 07/10/16 at 15:29; Status DC Acetaminophen (Tylenol) 650 mg PRN Q4HRS PRN PO FEVER; Start 07/09/16 at 20:30 ; Stop 07/09/16 at 21:00; Status DC Acetaminophen (Tylenol) 650 mg PRN Q6HRS PRN PO FEVER; Start 07/09/16 at 21:00 ; Stop 07/10/16 at 15:28; Status DC Ondansetron HCl 4 mg 4 mg PRN Q6HRS PRN IV NAUSEA/VOMITING; Start 07/09/16 at 21:00 Sodium Chloride (Iv Sodium Chloride 0.9% 1000ml Bag) 1,000 ml @ 150 mls/hr Q6H40M IV Last administered on 07/13/16 17:59; Start 07/09/16 at 21:00; Stop 07/13/16 at 19:27; Status DC Insulin Aspart (Novolog) 0-9 UNITS TIDWMEALS SQ Last administered on 07/14/16 08:50; Start 07/10/16 at 08:00 Dextrose 12.5 gm 12.5 gm PRN Q15MIN PRN IV SEE COMMENTS; Start 07/09/16 at 21: 00 Levofloxacin/ Dextrose (LEVAQUIN 500mg PREMIX) 100 ml @ 100 mls/hr Q24H IV Last administered on 07/12/16 02:49; Start 07/09/16 at 22:00; Stop 07/12/16 at 10:37; Status DC Guaifenesin (Mucinex) 600 mg BID PO Last administered on 07/14/16 08:35; Start 07/09/16 at 21:00 Albuterol Sulfate 2.5 mg 2.5 mg PRN Q4HRS PRN NEB SHORTNESS OF BREATH; Start at 21:00 Sodium Chloride (Iv Sodium Chloride 0.9% 1000ml Bag) 1,000 ml @ 0 mls/hr 1X ONCE IV Last administered on 07/10/16 10:27; Start 07/10/16 at 10:30; Stop at 10:31; Status DC Alprazolam (Xanax) 0.5 mg PRN Q8HRS PRN PO ANXIETY / AGITATION Last administered on 07/13/16 00:52; Start 07/10/16 at 13:00 Acetaminophen/ Hydrocodone Bitart (Lortab 5/325) 1 tab PRN Q6HRS PRN PO MODERATE - SEVERE PAIN Last administered on 07/14/16 02:31; Start 07/10/16 at 13:00 Acetaminophen (Tylenol) 650 mg PRN Q6HRS PRN PO MILD PAIN / TEMP Last administered on 07/14/16 00:08; Start 07/10/16 at 13:00 Heparin Sodium (Porcine) 5000 unit 5,000 unit Q8HRS SQ Last administered on 14:02; Start 07/10/16 at 14:00; Stop 07/11/16 at 22:55; Status DC Magnesium Sulfate/ Dextrose (Magnesium Sulfate PREMIX 2GM) 50 ml @ 25 mls/hr PRN DAILY PRN IV for Mag < 1.7 on am labs; Start 07/10/16 at 14:00 Diphenhydramine HCl (Benadryl) 25 mg PRN Q6HRS PRN IVP ITCHING Last administered on 07/13/16 01:52; Start 07/11/16 at 01:30 Lorazepam 2 mg 2 mg PRN Q4HRS PRN IV ANXIETY / AGITATION Last administered on 10:19; Start 07/11/16 at 01:30 Albumin Human (Albuminar) 100 ml @ 100 mls/hr TID IV Last administered on 07/13 13:56; Start 07/11/16 at 14:00; Stop 07/13/16 at 09:59; Status DC Insulin Aspart (Novolog) 10 units TIDAC SQ Last administered on 07/12/16 08:46 ; Start 07/11/16 at 12:30; Stop 07/12/16 at 09:17; Status DC Insulin Detemir 25 units 25 units QHS SQ Last administered on 07/12/16 01:48; Start 07/11/16 at 21:00; Stop 07/12/16 at 09:17; Status DC Heparin Sodium/ Dextrose 500 ml @ 0 mls/hr CONT PRN IV SEE I/O RECORD Last administered on 07/13/16 12:12; Start 07/11/16 at 23:00; Stop 07/13/16 at 12:32 ; Status DC Heparin Sodium (Porcine) 3,800 unit PRN Q6HRS PRN IV FOR UFH LEVEL LESS THAN 0.2 Last administered on 07/12/16 19:37; Start 07/11/16 at 23:00; Stop at 12:32; Status DC Heparin Sodium (Porcine) 1,900 unit PRN Q6HRS PRN IV FOR UFH LEVEL 0.2 - 0.29 Last administered on 07/13/16 02:33; Start 07/11/16 at 23:00; Stop 07/13/16 at 12:32; Status DC Warfarin Sodium (Coumadin Per Pharmacy) 1 each PRN DAILY PRN MC PER PROTOCOL Last administered on 07/13/16 12:13; Start 07/11/16 at 23:00 Warfarin Sodium (Coumadin) 5 mg 1X ONCE PO Last administered on 07/12/16 01: 45; Start 07/12/16 at 00:15; Stop 07/12/16 at 00:16; Status DC Info (Anti-Coagulation Monitoring By Pharmacy) 1 each PRN DAILY PRN MC SEE COMMENTS Last administered on 07/12/16 01:37; Start 07/11/16 at 23:45 Heparin Sodium (Porcine) 10,000 unit 1X ONCE IV Last administered on 01:48; Start 07/12/16 at 01:15; Stop 07/12/16 at 01:16; Status DC Insulin Aspart (Novolog) 12 units TIDAC SQ Last administered on 07/13/16 12:08 ; Start 07/12/16 at 11:30; Stop 07/13/16 at 12:32; Status DC Insulin Detemir (Levemir) 30 units QHS SQ Last administered on 07/12/16 21:07 ; Start 07/12/16 at 21:00; Stop 07/13/16 at 12:32; Status DC Tramadol HCl (Ultram) 50 mg PRN Q6HRS PRN PO PAIN; Start 07/12/16 at 10:15 Tramadol HCl (Ultram) 50 mg 1X ONCE PO Last administered on 07/12/16 14:32; Start 07/12/16 at 10:15; Stop 07/12/16 at 10:29; Status DC Methylprednisolone Acetate (Depo-Medrol 40mg Vial) 40 mg 1X ONCE IM ; Start at 10:30; Stop 07/12/16 at 10:31; Status DC Bupivacaine HCl (Sensorcaine-Mpf 0.25%) 10 ml 1X ONCE IJ ; Start 07/12/16 at 10 :30; Stop 07/12/16 at 10:31; Status DC Hydromorphone HCl 1 mg 1 mg 1X ONCE IV Last administered on 07/12/16 10:55; Start 07/12/16 at 10:30; Stop 07/12/16 at 10:46; Status DC Cefazolin Sodium 2 gm/Sodium Chloride 50 ml @ 100 mls/hr Q8HRS IV ; Start 07/12 at 11:00; Status Cancel Cefazolin Sodium/ Sodium Chloride (Ancef/Iv Sodium Chloride 0.9% 50ml) 50 ml @ 100 mls/hr Q8HRS IV Last administered on 07/14/16 05:18; Start 07/12/16 at 11: 00 Warfarin Sodium (Coumadin) 6 mg 1X WARF ONCE PO Last administered on 17:58; Start 07/12/16 at 16:00; Stop 07/12/16 at 16:01; Status DC Hydromorphone HCl (Dilaudid) 1 mg PRN Q4HRS PRN IVP PAIN Last administered on 22:25; Start 07/12/16 at 15:30 Polyethylene Glycol (miraLAX PACKET) 17 gm BID PO Last administered on 08:34; Start 07/12/16 at 21:00 Docusate Sodium (Colace) 100 mg PRN DAILY PRN PO CONSTIPATION; Start 07/12/16 at 15:30 Docusate Sodium (Colace) 100 mg DAILY PO Last administered on 07/14/16 08:35; Start 07/13/16 at 09:00 Magnesium Hydroxide (Milk Of Magnesia) 2,400 mg PRN DAILY PRN PO CONSTIPATION; Start 07/12/16 at 15:30 Gadobutrol (Gadavist) 7 mmol 1X ONCE IV Last administered on 07/13/16 10:45; Start 07/13/16 at 10:45; Stop 07/13/16 at 10:51; Status DC Gadobutrol (Gadavist) 7 mmol 1X ONCE IV Last administered on 07/13/16 10:45; Start 07/13/16 at 10:45; Stop 07/13/16 at 10:51; Status DC Warfarin Sodium (Coumadin) 10 mg 1X WARF ONCE PO Last administered on 17:56; Start 07/13/16 at 16:00; Stop 07/13/16 at 16:01; Status DC Enoxaparin Sodium (Lovenox Per Pharmacy Treatment Dosing) 1 each PRN DAILY PRN MC SEE COMMENTS; Start 07/13/16 at 12:30 Insulin Aspart (Novolog) 15 units TIDAC SQ Last administered on 07/14/16 08:50 ; Start 07/13/16 at 16:30 Insulin Detemir (Levemir) 40 units QHS SQ Last administered on 07/13/16 21:12 ; Start 07/13/16 at 21:00 Enoxaparin Sodium (Lovenox 150mg Syringe) 140 mg BID SQ Last administered on 08:35; Start 07/13/16 at 21:00 Active Scripts Active Phenergan (Promethazine HCl) 25 Mg Supp.rect 25 Mg RC Q8HRS PRN Zofran Odt (Ondansetron) 4 Mg Tab.rapdis 1 Tab SL Q8HRS PRN Vitals/I & O Vital Sign - Last 24 Hours 07/13/16 07/13/16 07/13/16 07/13/16 14:00 15:00 15:35 19:00 Temp 99.2 99.7 99.2 99.7 Pulse 115 107 Resp 24 22 20 B/P 124/68 139/76 Pulse Ox 93 96 O2 Delivery Room Air Nasal Cannula Room Air Room Air O2 Flow Rate 2.0 07/13/16 07/13/16 07/14/16 07/14/16 20:09 23:00 02:31 03:14 Temp 99.9 98.5 99.9 98.5 Pulse 111 100 Resp 20 20 B/P 124/62 116/69 Pulse Ox 94 94 95 O2 Delivery Room Air Room Air Room Air Room Air 07/14/16 07:00 Temp 97.7 97.7 Pulse 87 Resp 18 B/P 132/62 Pulse Ox 96 O2 Delivery Room Air Intake and Output 07/13/16 07/13/16 07/14/16 15:00 23:00 07:00 Intake Total 50 ml 290 ml Output Total 750 ml Balance -700 ml 290 ml CLIFFORD BURGOS MD Jul 14, 2016 10:10
--- NOTE | 2016-07-14 11:12 | PDOC ---
Infectious Disease Note Subjective Subjective Some better. Weakness improving and better ROM ROS ROS GEN: Denies fevers, chills, sweats HEENT: Denies blurred vision, sore throat CV: Denies chest pain RESP: Denies shortness of air, cough GI: Denies n/v/d NEURO: Denies confusion, dizziness MSK: Denies weakness, joint pain/swelling Vital Sign Vital Signs Vital Signs Date Time Temp Pulse Resp B/P Pulse Ox O2 Delivery O2 Flow Rate FiO2 07/14/16 08:00 Room Air 07/14/16 07:00 97.7 87 18 132/62 96 97.7 07/13/16 15:00 2.0 Physical Exam PHYSICAL EXAM GENERAL: NAD, Alert. in chair HEENT: PERRL, nml conj. OC/OP- clear NECK: Supple, no JVD, no LN LUNGS: Clear HEART: S1S2, no gallop, no murmur ABD: Soft, NT, no organomegaly, no rebound, Obese EXT: Trace shoulder edema and warmth, no cyanosis BOOK SORTER: Alert, oriented x 3, no focal neurologic deficit. Improved ROM SKIN: No rash IV: ok Labs Lab Laboratory Tests Test 07/13/16 11:59 07/13/16 17:11 07/13/16 19:30 07/13/16 20:27 Glucose (Fingerstick) 326mg/dL (70-99) 235mg/dL (70-99) 242mg/dL (70-99) Heparin Anti-Xa Act, Unfractionated < 0.10IU/mL (0.30-0.70) Test 07/14/16 06:05 07/14/16 08:33 White Blood Count 9.7x10^3/uL (4.0-11.0) Red Blood Count 3.72x10^6/uL (4.30-5.70) Hemoglobin 10.3g/dL (13.0-17.5) Hematocrit 31.9% (39.0-53.0) Mean Corpuscular Volume 86fL (79-100) Mean Corpuscular Hemoglobin 28pg (25-35) Mean Corpuscular Hemoglobin Concent 32g/dL (31-37) Red Cell Distribution Width 15.7% (11.5-14.5) Platelet Count 372x10^3/uL (140-400) Neutrophils (%) (Auto) 76% (31-73) Lymphocytes (%) (Auto) 18% (24-48) Monocytes (%) (Auto) 4% (0-9) Eosinophils (%) (Auto) 1% (0-3) Basophils (%) (Auto) 0% (0-3) Neutrophils # (Auto) 7.4x10^3uL (1.8-7.7) Lymphocytes # (Auto) 1.7x10^3/uL (1.0-4.8) Monocytes # (Auto) 0.4x10^3/uL (0.0-1.1) Eosinophils # (Auto) 0.1x10^3/uL (0.0-0.7) Basophils # (Auto) 0.0x10^3/uL (0.0-0.2) Prothrombin Time 17.7SEC (11.7-14.0) Prothromb Time International Ratio 1.6 (0.8-1.1) Sodium Level 136mmol/L (136-145) Potassium Level 3.8mmol/L (3.5-5.1) Chloride Level 103mmol/L (98-107) Carbon Dioxide Level 26mmol/L (21-32) Anion Gap 7 (6-14) Blood Urea Nitrogen 18mg/dL (8-26) Creatinine 0.9mg/dL (0.7-1.3) Estimated GFR (Cockcroft-Gault) 87.6 Glucose Level 206mg/dL (70-99) Calcium Level 7.9mg/dL (8.5-10.1) Phosphorus Level 3.0mg/dL (2.6-4.7) Magnesium Level 2.1mg/dL (1.8-2.4) Creatine Kinase 13U/L (39-308) Albumin 1.8g/dL (3.4-5.0) Glucose (Fingerstick) 189mg/dL (70-99) Objective Assessment Fever Staph sepsis - 07/11. ECHO reviewed Staph aureus in urine Shoulder pain and warmth ? Septic emboli in UE Leukocytosis - better DM Obesity Pulm nodule ? Incidental mass in abd Plan Plan of Care Cont Cefazolin MRI left shoulder and neck reviewed - Ortho consulted for I and D Repeat blood cults this am May need hypercoaguable w/u D/w MELA JAIMES MD Jul 14, 2016 11:12
--- NOTE | 2016-07-14 11:33 | PDOC2 ---
CONSULT Date of Consult Date of Consult DATE: 07/14/16 TIME: 10:00 Reason for Consult Reason for Consult: left shoulder possible infection Referring Physician Referring Physician: Dr. Barry Identification/Chief Complaint Chief Complaint left shoulder pain Source Source: Chart review, Patient History of Present Illness Reason for Visit: Mr. Washington is a 55 year old male patient with worsening left shoulder pain. He presented to [facility] ER originally on 07/02/16 for dehydration where he was rehydrated and discharged home. He presented to the [facility] ER again on 07/09/16 due to feeling ill. He says his left shoulder began hurting about two weeks ago. He says he has not noticed any lesion of the shoulder, but mentions he does remember running into a door jam with his left shoulder about two weeks ago. His shoulder is now very painful to the touch and with range of motion. The pain is located around the anterolateral aspect of the shoulder and radiates into his neck. He says actually all of his left upper extremity joints are painful with active motion. No prior history of shoulder surgery, septic joint, or abscess. He does have an orthopedist, Dr. Foster, who gives viscosupplementation injections to bilateral knees. Past Medical History Musculoskeletal: Osteoarthritis (bilateral knees - gets visco injections) Endocrine: Diabetes Past Surgical History Past Surgical History: Other (multiple knee surgeries) Family History Family History: Diabetes Social History No ALCOHOL: social Drugs: None Current Problem List Problem List Problems Medical Problems: (1) Acute renal injury Status: Acute (2) Dehydration Status: Acute (3) Hyponatremia Status: Acute (4) Nausea & vomiting Status: Acute (5) Uncontrolled diabetes mellitus Status: Acute Current Medications Current Medications Current Medications Sodium Chloride (Iv Sodium Chloride 0.9% 1000ml Bag) 1,000 ml @ 1,000 mls/hr Q1H IV Last administered on 07/09/16 19:34; Start 07/09/16 at 19:18; Stop at 20:17; Status DC Hydromorphone HCl (Dilaudid) 2 mg 1X ONCE IV ; Start 07/09/16 at 19:30; Stop at 19:30; Status DC Ondansetron HCl (Zofran) 4 mg 1X ONCE IV Last administered on 07/09/16 19:33 ; Start 07/09/16 at 19:30; Stop 07/09/16 at 19:31; Status DC Hydromorphone HCl (Dilaudid) 1 mg 1X ONCE IV Last administered on 07/09/16 19 :33; Start 07/09/16 at 19:30; Stop 07/09/16 at 19:31; Status DC Ondansetron HCl (Zofran) 4 mg PRN Q8HRS PRN IV NAUSEA/VOMITING; Start 07/09/16 at 20:30; Stop 07/09/16 at 21:00; Status DC Morphine Sulfate 4 mg 4 mg PRN Q2HR PRN IV PAIN Last administered on 07/10/16 06:36; Start 07/09/16 at 20:30; Stop 07/10/16 at 13:00; Status DC Sodium Chloride (Iv Sodium Chloride 0.9% 1000ml Bag) 1,000 ml @ 150 mls/hr Q6H40M IV Last administered on 07/09/16 20:41; Start 07/09/16 at 20:24; Stop 07/10/16 at 15:29; Status DC Acetaminophen (Tylenol) 650 mg PRN Q4HRS PRN PO FEVER; Start 07/09/16 at 20:30 ; Stop 07/09/16 at 21:00; Status DC Acetaminophen (Tylenol) 650 mg PRN Q6HRS PRN PO FEVER; Start 07/09/16 at 21:00 ; Stop 07/10/16 at 15:28; Status DC Ondansetron HCl 4 mg 4 mg PRN Q6HRS PRN IV NAUSEA/VOMITING; Start 07/09/16 at 21:00 Sodium Chloride (Iv Sodium Chloride 0.9% 1000ml Bag) 1,000 ml @ 150 mls/hr Q6H40M IV Last administered on 07/13/16 17:59; Start 07/09/16 at 21:00; Stop 07/13/16 at 19:27; Status DC Insulin Aspart (Novolog) 0-9 UNITS TIDWMEALS SQ Last administered on 07/14/16 08:50; Start 07/10/16 at 08:00 Dextrose 12.5 gm 12.5 gm PRN Q15MIN PRN IV SEE COMMENTS; Start 07/09/16 at 21: 00 Levofloxacin/ Dextrose (LEVAQUIN 500mg PREMIX) 100 ml @ 100 mls/hr Q24H IV Last administered on 07/12/16 02:49; Start 07/09/16 at 22:00; Stop 07/12/16 at 10:37; Status DC Guaifenesin (Mucinex) 600 mg BID PO Last administered on 07/14/16 08:35; Start 07/09/16 at 21:00 Albuterol Sulfate 2.5 mg 2.5 mg PRN Q4HRS PRN NEB SHORTNESS OF BREATH; Start at 21:00 Sodium Chloride (Iv Sodium Chloride 0.9% 1000ml Bag) 1,000 ml @ 0 mls/hr 1X ONCE IV Last administered on 07/10/16 10:27; Start 07/10/16 at 10:30; Stop at 10:31; Status DC Alprazolam (Xanax) 0.5 mg PRN Q8HRS PRN PO ANXIETY / AGITATION Last administered on 07/13/16 00:52; Start 07/10/16 at 13:00 Acetaminophen/ Hydrocodone Bitart (Lortab 5/325) 1 tab PRN Q6HRS PRN PO MODERATE - SEVERE PAIN Last administered on 07/14/16 02:31; Start 07/10/16 at 13:00 Acetaminophen (Tylenol) 650 mg PRN Q6HRS PRN PO MILD PAIN / TEMP Last administered on 07/14/16 00:08; Start 07/10/16 at 13:00 Heparin Sodium (Porcine) 5000 unit 5,000 unit Q8HRS SQ Last administered on 14:02; Start 07/10/16 at 14:00; Stop 07/11/16 at 22:55; Status DC Magnesium Sulfate/ Dextrose (Magnesium Sulfate PREMIX 2GM) 50 ml @ 25 mls/hr PRN DAILY PRN IV for Mag < 1.7 on am labs; Start 07/10/16 at 14:00 Diphenhydramine HCl (Benadryl) 25 mg PRN Q6HRS PRN IVP ITCHING Last administered on 07/13/16 01:52; Start 07/11/16 at 01:30 Lorazepam 2 mg 2 mg PRN Q4HRS PRN IV ANXIETY / AGITATION Last administered on 10:19; Start 07/11/16 at 01:30 Albumin Human (Albuminar) 100 ml @ 100 mls/hr TID IV Last administered on 07/13 13:56; Start 07/11/16 at 14:00; Stop 07/13/16 at 09:59; Status DC Insulin Aspart (Novolog) 10 units TIDAC SQ Last administered on 07/12/16 08:46 ; Start 07/11/16 at 12:30; Stop 07/12/16 at 09:17; Status DC Insulin Detemir 25 units 25 units QHS SQ Last administered on 07/12/16 01:48; Start 07/11/16 at 21:00; Stop 07/12/16 at 09:17; Status DC Heparin Sodium/ Dextrose 500 ml @ 0 mls/hr CONT PRN IV SEE I/O RECORD Last administered on 07/13/16 12:12; Start 07/11/16 at 23:00; Stop 07/13/16 at 12:32 ; Status DC Heparin Sodium (Porcine) 3,800 unit PRN Q6HRS PRN IV FOR UFH LEVEL LESS THAN 0.2 Last administered on 07/12/16 19:37; Start 07/11/16 at 23:00; Stop at 12:32; Status DC Heparin Sodium (Porcine) 1,900 unit PRN Q6HRS PRN IV FOR UFH LEVEL 0.2 - 0.29 Last administered on 07/13/16 02:33; Start 07/11/16 at 23:00; Stop 07/13/16 at 12:32; Status DC Warfarin Sodium (Coumadin Per Pharmacy) 1 each PRN DAILY PRN MC PER PROTOCOL Last administered on 07/13/16 12:13; Start 07/11/16 at 23:00 Warfarin Sodium (Coumadin) 5 mg 1X ONCE PO Last administered on 07/12/16 01: 45; Start 07/12/16 at 00:15; Stop 07/12/16 at 00:16; Status DC Info (Anti-Coagulation Monitoring By Pharmacy) 1 each PRN DAILY PRN MC SEE COMMENTS Last administered on 07/12/16 01:37; Start 07/11/16 at 23:45 Heparin Sodium (Porcine) 10,000 unit 1X ONCE IV Last administered on 01:48; Start 07/12/16 at 01:15; Stop 07/12/16 at 01:16; Status DC Insulin Aspart (Novolog) 12 units TIDAC SQ Last administered on 07/13/16 12:08 ; Start 07/12/16 at 11:30; Stop 07/13/16 at 12:32; Status DC Insulin Detemir (Levemir) 30 units QHS SQ Last administered on 07/12/16 21:07 ; Start 07/12/16 at 21:00; Stop 07/13/16 at 12:32; Status DC Tramadol HCl (Ultram) 50 mg PRN Q6HRS PRN PO PAIN; Start 07/12/16 at 10:15 Tramadol HCl (Ultram) 50 mg 1X ONCE PO Last administered on 07/12/16 14:32; Start 07/12/16 at 10:15; Stop 07/12/16 at 10:29; Status DC Methylprednisolone Acetate (Depo-Medrol 40mg Vial) 40 mg 1X ONCE IM ; Start at 10:30; Stop 07/12/16 at 10:31; Status DC Bupivacaine HCl (Sensorcaine-Mpf 0.25%) 10 ml 1X ONCE IJ ; Start 07/12/16 at 10 :30; Stop 07/12/16 at 10:31; Status DC Hydromorphone HCl 1 mg 1 mg 1X ONCE IV Last administered on 07/12/16 10:55; Start 07/12/16 at 10:30; Stop 07/12/16 at 10:46; Status DC Cefazolin Sodium 2 gm/Sodium Chloride 50 ml @ 100 mls/hr Q8HRS IV ; Start 07/12 at 11:00; Status Cancel Cefazolin Sodium/ Sodium Chloride (Ancef/Iv Sodium Chloride 0.9% 50ml) 50 ml @ 100 mls/hr Q8HRS IV Last administered on 07/14/16 05:18; Start 07/12/16 at 11: 00 Warfarin Sodium (Coumadin) 6 mg 1X WARF ONCE PO Last administered on 17:58; Start 07/12/16 at 16:00; Stop 07/12/16 at 16:01; Status DC Hydromorphone HCl (Dilaudid) 1 mg PRN Q4HRS PRN IVP PAIN Last administered on 22:25; Start 07/12/16 at 15:30 Polyethylene Glycol (miraLAX PACKET) 17 gm BID PO Last administered on 08:34; Start 07/12/16 at 21:00 Docusate Sodium (Colace) 100 mg PRN DAILY PRN PO CONSTIPATION; Start 07/12/16 at 15:30 Docusate Sodium (Colace) 100 mg DAILY PO Last administered on 07/14/16 08:35; Start 07/13/16 at 09:00 Magnesium Hydroxide (Milk Of Magnesia) 2,400 mg PRN DAILY PRN PO CONSTIPATION; Start 07/12/16 at 15:30 Gadobutrol (Gadavist) 7 mmol 1X ONCE IV Last administered on 07/13/16 10:45; Start 07/13/16 at 10:45; Stop 07/13/16 at 10:51; Status DC Gadobutrol (Gadavist) 7 mmol 1X ONCE IV Last administered on 07/13/16 10:45; Start 07/13/16 at 10:45; Stop 07/13/16 at 10:51; Status DC Warfarin Sodium (Coumadin) 10 mg 1X WARF ONCE PO Last administered on 17:56; Start 07/13/16 at 16:00; Stop 07/13/16 at 16:01; Status DC Enoxaparin Sodium (Lovenox Per Pharmacy Treatment Dosing) 1 each PRN DAILY PRN MC SEE COMMENTS; Start 07/13/16 at 12:30 Insulin Aspart (Novolog) 15 units TIDAC SQ Last administered on 07/14/16 08:50 ; Start 07/13/16 at 16:30 Insulin Detemir (Levemir) 40 units QHS SQ Last administered on 07/13/16 21:12 ; Start 07/13/16 at 21:00 Enoxaparin Sodium (Lovenox 150mg Syringe) 140 mg BID SQ Last administered on 08:35; Start 07/13/16 at 21:00 Active Scripts Active Phenergan (Promethazine HCl) 25 Mg Supp.rect 25 Mg RC Q8HRS PRN Zofran Odt (Ondansetron) 4 Mg Tab.rapdis 1 Tab SL Q8HRS PRN Allergies Allergies: Coded Allergies: No Known Drug Allergies (Unverified , 07/02/16) ROS General: YES: Fatigue, Malaise PSYCHOLOGICAL ROS: YES: Anxiety Respiratory: No: Shortness of breath Musculoskeletal: Yes Joint Pain, Yes Joint Stiffness, Yes Joint Swelling, Yes Muscle Pain, Yes Muscular Weakness Physical Exam General: Alert, Oriented X3, Cooperative, No acute distress HEENT: Atraumatic, EOMI Lungs: Normal air movement Heart: Regular rate Abdomen: Soft Extremities: No clubbing, No cyanosis, Normal pulses Skin: No breakdown, No significant lesion Neuro: Normal speech, Sensation intact Psych/Mental Status: Mental status NL, Mood NL MUSCULOSKELETAL: Other (Upon inspection of the left shoulder, there is a small circular area of erythema that is warm to the touch. The shoudler has a mild peau d'orange appearance that extends up along the clavicle and up towards to the neck. There is tenderness to palpation along the anterolateral aspect of the shoulder, over the acromioclavicular joint, and the left side of the neck. There is 1+ pitting edema of the shoulder. Attempted AROM is painful. He can achieve about 90 degrees of forward flexion, 70 degrees of abduction, and 20 degrees of external rotation. Strength testing is deferred due to pain. [employer] strength is poor. Radial pulse intact. Radial, median, and ulnar motor and sensory function intact. ) Vitals VITALS Vital Signs Date Time Temp Pulse Resp B/P Pulse Ox O2 Delivery O2 Flow Rate FiO2 07/14/16 08:00 Room Air 07/14/16 07:00 97.7 87 18 132/62 96 97.7 07/13/16 15:00 2.0 Labs Labs Laboratory Tests Test 07/12/16 11:08 07/12/16 14:36 07/12/16 17:15 07/12/16 17:30 Glucose (Fingerstick) 284mg/dL (70-99) 298mg/dL (70-99) 249mg/dL (70-99) Heparin Anti-Xa Act, Unfractionated 0.10IU/mL (0.30-0.70) Test 07/12/16 21:00 07/13/16 01:57 07/13/16 07:21 07/13/16 08:35 Glucose (Fingerstick) 225mg/dL (70-99) 245mg/dL (70-99) White Blood Count 13.1x10^3/uL (4.0-11.0) Red Blood Count 3.80x10^6/uL (4.30-5.70) Hemoglobin 10.5g/dL (13.0-17.5) Hematocrit 32.4% (39.0-53.0) Mean Corpuscular Volume 85fL (79-100) Mean Corpuscular Hemoglobin 28pg (25-35) Mean Corpuscular Hemoglobin Concent 32g/dL (31-37) Red Cell Distribution Width 15.4% (11.5-14.5) Platelet Count 353x10^3/uL (140-400) Neutrophils (%) (Auto) 82% (31-73) Lymphocytes (%) (Auto) 13% (24-48) Monocytes (%) (Auto) 4% (0-9) Eosinophils (%) (Auto) 1% (0-3) Basophils (%) (Auto) 1% (0-3) Neutrophils # (Auto) 10.7x10^3uL (1.8-7.7) Lymphocytes # (Auto) 1.7x10^3/uL (1.0-4.8) Monocytes # (Auto) 0.5x10^3/uL (0.0-1.1) Eosinophils # (Auto) 0.1x10^3/uL (0.0-0.7) Basophils # (Auto) 0.1x10^3/uL (0.0-0.2) Prothrombin Time 16.7SEC (11.7-14.0) Prothromb Time International Ratio 1.4 (0.8-1.1) Heparin Anti-Xa Act, Unfractionated 0.27IU/mL (0.30-0.70) 0.29IU/mL (0.30-0.70) Sodium Level 133mmol/L (136-145) Potassium Level 3.9mmol/L (3.5-5.1) Chloride Level 100mmol/L (98-107) Carbon Dioxide Level 25mmol/L (21-32) Anion Gap 8 (6-14) Blood Urea Nitrogen 18mg/dL (8-26) Creatinine 0.9mg/dL (0.7-1.3) Estimated GFR (Cockcroft-Gault) 87.6 Glucose Level 271mg/dL (70-99) Calcium Level 7.7mg/dL (8.5-10.1) Phosphorus Level 2.9mg/dL (2.6-4.7) Magnesium Level 2.1mg/dL (1.8-2.4) Creatine Kinase 18U/L (39-308) Albumin 2.0g/dL (3.4-5.0) Test 07/13/16 11:59 07/13/16 17:11 07/13/16 19:30 07/13/16 20:27 Glucose (Fingerstick) 326mg/dL (70-99) 235mg/dL (70-99) 242mg/dL (70-99) Heparin Anti-Xa Act, Unfractionated < 0.10IU/mL (0.30-0.70) Test 07/14/16 06:05 07/14/16 08:33 White Blood Count 9.7x10^3/uL (4.0-11.0) Red Blood Count 3.72x10^6/uL (4.30-5.70) Hemoglobin 10.3g/dL (13.0-17.5) Hematocrit 31.9% (39.0-53.0) Mean Corpuscular Volume 86fL (79-100) Mean Corpuscular Hemoglobin 28pg (25-35) Mean Corpuscular Hemoglobin Concent 32g/dL (31-37) Red Cell Distribution Width 15.7% (11.5-14.5) Platelet Count 372x10^3/uL (140-400) Neutrophils (%) (Auto) 76% (31-73) Lymphocytes (%) (Auto) 18% (24-48) Monocytes (%) (Auto) 4% (0-9) Eosinophils (%) (Auto) 1% (0-3) Basophils (%) (Auto) 0% (0-3) Neutrophils # (Auto) 7.4x10^3uL (1.8-7.7) Lymphocytes # (Auto) 1.7x10^3/uL (1.0-4.8) Monocytes # (Auto) 0.4x10^3/uL (0.0-1.1) Eosinophils # (Auto) 0.1x10^3/uL (0.0-0.7) Basophils # (Auto) 0.0x10^3/uL (0.0-0.2) Prothrombin Time 17.7SEC (11.7-14.0) Prothromb Time International Ratio 1.6 (0.8-1.1) Sodium Level 136mmol/L (136-145) Potassium Level 3.8mmol/L (3.5-5.1) Chloride Level 103mmol/L (98-107) Carbon Dioxide Level 26mmol/L (21-32) Anion Gap 7 (6-14) Blood Urea Nitrogen 18mg/dL (8-26) Creatinine 0.9mg/dL (0.7-1.3) Estimated GFR (Cockcroft-Gault) 87.6 Glucose Level 206mg/dL (70-99) Calcium Level 7.9mg/dL (8.5-10.1) Phosphorus Level 3.0mg/dL (2.6-4.7) Magnesium Level 2.1mg/dL (1.8-2.4) Creatine Kinase 13U/L (39-308) Albumin 1.8g/dL (3.4-5.0) Glucose (Fingerstick) 189mg/dL (70-99) Laboratory Tests Test 07/13/16 11:59 07/13/16 17:11 07/13/16 19:30 07/13/16 20:27 Glucose (Fingerstick) 326mg/dL (70-99) 235mg/dL (70-99) 242mg/dL (70-99) Heparin Anti-Xa Act, Unfractionated < 0.10IU/mL (0.30-0.70) Test 07/14/16 06:05 07/14/16 08:33 White Blood Count 9.7x10^3/uL (4.0-11.0) Red Blood Count 3.72x10^6/uL (4.30-5.70) Hemoglobin 10.3g/dL (13.0-17.5) Hematocrit 31.9% (39.0-53.0) Mean Corpuscular Volume 86fL (79-100) Mean Corpuscular Hemoglobin 28pg (25-35) Mean Corpuscular Hemoglobin Concent 32g/dL (31-37) Red Cell Distribution Width 15.7% (11.5-14.5) Platelet Count 372x10^3/uL (140-400) Neutrophils (%) (Auto) 76% (31-73) Lymphocytes (%) (Auto) 18% (24-48) Monocytes (%) (Auto) 4% (0-9) Eosinophils (%) (Auto) 1% (0-3) Basophils (%) (Auto) 0% (0-3) Neutrophils # (Auto) 7.4x10^3uL (1.8-7.7) Lymphocytes # (Auto) 1.7x10^3/uL (1.0-4.8) Monocytes # (Auto) 0.4x10^3/uL (0.0-1.1) Eosinophils # (Auto) 0.1x10^3/uL (0.0-0.7) Basophils # (Auto) 0.0x10^3/uL (0.0-0.2) Prothrombin Time 17.7SEC (11.7-14.0) Prothromb Time International Ratio 1.6 (0.8-1.1) Sodium Level 136mmol/L (136-145) Potassium Level 3.8mmol/L (3.5-5.1) Chloride Level 103mmol/L (98-107) Carbon Dioxide Level 26mmol/L (21-32) Anion Gap 7 (6-14) Blood Urea Nitrogen 18mg/dL (8-26) Creatinine 0.9mg/dL (0.7-1.3) Estimated GFR (Cockcroft-Gault) 87.6 Glucose Level 206mg/dL (70-99) Calcium Level 7.9mg/dL (8.5-10.1) Phosphorus Level 3.0mg/dL (2.6-4.7) Magnesium Level 2.1mg/dL (1.8-2.4) Creatine Kinase 13U/L (39-308) Albumin 1.8g/dL (3.4-5.0) Glucose (Fingerstick) 189mg/dL (70-99) Images Images MRI of the left shoulder was reviewed. There is diffuse soft tissue edema around the shoulder. Diffuse intramuscular edema of anterior deltoid. Swelling at the superior shoulder, above the clavicle, as well. There is small, irregular pocket of soft tissue above the supraspinatus measuring about 3cm in diameter and a of the outer trapezius measuring about 2cm in diameter. Degenerative changes of the acromioclavicular joint with mild fluid of uncertain sterility. No definite glenohumeral joint effusion. Degenerative changes of glenohumeral joint. Bilateral upper extremity venous Doppler reviewed. Left basilic venous thrombosis seen from the mid upper arm to the mid forearm. Assessment/Plan Assessment/Plan Left shoulder cellulitis with probable underlying abscess. When reviewing the MRI images, the glenohumeral joint itself does not appear to be infected and there is no definite joint effusion identified. Treatment options were discussed with the patient. This will likely need irrigation and debridement of the underlying abscess. The patient did have breakfast this morning around 9am, but will remain NPO now. RENATA CASTRO Jul 14, 2016 11:33
[2016-07-14] MEDS ORDERED: IV RINGERS,LACTATED 1000ML 1,000 ML IV SCH (13:42)
[2016-07-14] MEDS ORDERED: PROCHLORPERAZINE 10 MG/2 ML VIAL. IV PRN (13:45)
[2016-07-14] MEDS ORDERED: LIDOCAINE 1% 1 ML SYRINGE. ID PRN (13:45)
[2016-07-14] MEDS ORDERED: MORPHINE SULFATE 2 MG/ML DISP.SYRIN. IV PRN (13:45)
[2016-07-14] MEDS ORDERED: HYDROMORPHONE 2 MG/ML VIAL. IV PRN (13:45)
[2016-07-14] MEDS ORDERED: ONDANSETRON PF 4 MG/2 ML VIAL. IV PRN (13:45)
[2016-07-14] MEDS ORDERED: FENTANYL PF 100 MCG/2 ML VIAL. IV PRN (13:45)
[2016-07-14] MEDS ORDERED: BUPIVACAINE-EPI 0.25%-1:200000 50 ML VIAL. ONE (15:20)
[2016-07-14] MEDS ORDERED: LIDOCAINE 2% 100 MG/5 ML DISP.SYRIN. ONE (15:26)
[2016-07-14] MEDS ORDERED: PROPOFOL 20 ML IV ONE (15:26)
[2016-07-14] MEDS ORDERED: FENTANYL PF 100 MCG/2 ML VIAL. ONE ×2 (15:27→16:57)
[2016-07-14] MEDS ORDERED: ROCURONIUM 50 MG/5 ML VIAL. ONE (15:27)
[2016-07-14] MEDS ORDERED: WARFARIN 7.5 MG TABLET. PO ONE (16:00)
[2016-07-14] MEDS ORDERED: DEXAMETHASONE SOD PHOS 20 MG/5 ML VIAL. ONE (16:34)
[2016-07-14] MEDS ORDERED: DESFLURANE 31 TO 60 MINUTES IH ONE (16:35)
[2016-07-14] MEDS ORDERED: GLYCOPYRROLATE 1 MG/5 ML VIAL. ONE (16:46)
[2016-07-14] MEDS ORDERED: ONDANSETRON PF 4 MG/2 ML VIAL. ONE (16:46)
[2016-07-14] MEDS ORDERED: NEOSTIGMINE METHYLSULFATE 5 MG/5 ML SYRINGE. ONE (16:46)
--- NOTE | 2016-07-14 17:53 | PDOC ---
BRIEF OPERATIVE NOTE Date: Jul 14, 2016 Pre-Op Diagnosis Right shoulder abscess Post-Op Diagnosis Right ac joint abscess with extension into trapezial area Procedure Performed Incision and drainage, excisional debridement of abscess, ac joint arthrotomy Surgeon Monalisa Pinto MD Residential Service Technician none Anesthesia Type: General Blood Loss 100 Cc Specimens Obtained multiple cultures were taken Findings seropurulent drainage that tracked to the AC joint. finger width tract tunneled to the upper back on top of the trapezius. reactive and necrotic tissue in the area. Complications none Additional Remarks Wound vac placed over the area due to the large area of tunneling. Will need to return to the OR in 28-36 hours for repeat I&D. Would appreciate a consult of a general surgeon due to the extent of the abscess and its location. MONALISA PINTO MD Jul 14, 2016 17:53
[2016-07-14] MEDS: FENTANYL PF 100 MCG/2 ML VIAL. IV PRN ×2 (18:03→18:15)
[2016-07-14] MEDS: INSULIN DETEMIR 300 UNITS/3 ML INSULN.PEN. SQ SCH (21:06)
[2016-07-15 03:00] VITALS: BP 128/85
[2016-07-15] MEDS: CEFAZOLIN SODIUM IV SCH ×3 (04:57→20:56)
[2016-07-15] MEDS: NORMAL SALINE IV SCH ×3 (04:57→20:56)
[2016-07-15 05:29] LABS: HEMATOCRIT 35.3 % (39.0-53.0); HEMOGLOBIN 11.5 g/dL (13.0-17.5); RED BLOOD COUNT 4.23 x10^6/uL (4.30-5.70); RED CELL DISTRIBUTION WIDTH 15.9 % (11.5-14.5); WHITE BLOOD COUNT 8.6 x10^3/uL (4.0-11.0)
[2016-07-15 05:40] LABS: INR 1.5 (0.8-1.1); PROTHROMBIN TIME PATIENT 17.3 SEC (11.7-14.0)
[2016-07-15 05:43] LABS: ALBUMIN 1.7 g/dL (3.4-5.0); CALCIUM 8.3 mg/dL (8.5-10.1); CREATININE 0.8 mg/dL (0.7-1.3); GFR 100.4; MAGNESIUM 2.1 mg/dL (1.8-2.4); PHOSPHORUS 3.9 mg/dL (2.6-4.7)
[2016-07-15 06:20] LABS: POTASSIUM 5.6 mmol/L (3.5-5.1)
[2016-07-15 07:00] VITALS: BP 124/62
[2016-07-15] MEDS: INSULIN ASPART 300 UNITS/3 ML INSULN.PEN SQ SCH ×6 (08:00→16:59)
[2016-07-15] MEDS: DOCUSATE SODIUM 100 MG CAPSULE PO SCH (08:07)
[2016-07-15] MEDS: ENOXAPARIN ** NOTE DOSE ** SYRINGE SQ SCH ×2 (08:07→20:56)
[2016-07-15] MEDS: GUAIFENESIN ER 600 MG TABLET.ER PO SCH ×2 (08:07→20:56)
[2016-07-15] MEDS: POLYETHYLENE GLYCOL 3350 17 GM PACKET. PO SCH ×2 (08:07→20:57)
[2016-07-15] MEDS: HYDROCODONE/APAP 5/325MG TABLET. PO PRN ×3 (08:08→20:56)
[2016-07-15] MEDS ORDERED: INSULIN ASPART 300 UNITS/3 ML INSULN.PEN SQ ONE ×2 (08:30→12:15)
--- NOTE | 2016-07-15 10:26 | PDOC ---
PROGRESS NOTES Chief Complaint Chief Complaint 1. Sepsis 2. DM 2 uncontrolled - A1C 11 3. NELIDA 4. Hyponatremia 5. LLL lung nodule 6. Acute Bronchitis 7. Staph UTI 8. Hypoalbuminemia 9. Acute on chronic pain 10. UE DVT 11. Obesity - BMI 38 12. L Shoulder abscess History of Present Illness History of Present Illness Pt eating lunch in bed today S/p I&D of L shoulder abscess Diffuse myalgia a little better Minimal ambulation Eating much better - Albumin still only 1.7 Clean, dry, intact dressing on L shoulder VSS DW RN Vitals Vitals Vital Signs Date Time Temp Pulse Resp B/P Pulse Ox O2 Delivery O2 Flow Rate FiO2 07/15/16 09:10 94 Nasal Cannula 2.0 07/14/16 22:00 97.9 97 20 129/67 97.9 Physical Exam General: Alert, Oriented X3, Cooperative, No acute distress Heart: Regular rate, No murmurs Lungs: Clear, Other (No wheezing) Abdomen: Soft, No tenderness Extremities: No clubbing, No cyanosis, Normal pulses Skin: No rashes, No breakdown, Other Labs LABS Laboratory Tests Test 07/14/16 10:27 07/14/16 15:23 07/14/16 17:57 07/14/16 18:47 Glucose (Fingerstick) 240mg/dL (70-99) 232mg/dL (70-99) 252mg/dL (70-99) 225mg/dL (70-99) Test 07/14/16 20:19 07/15/16 04:46 07/15/16 08:00 Glucose (Fingerstick) 310mg/dL (70-99) 394mg/dL (70-99) White Blood Count 8.6x10^3/uL (4.0-11.0) Red Blood Count 4.23x10^6/uL (4.30-5.70) Hemoglobin 11.5g/dL (13.0-17.5) Hematocrit 35.3% (39.0-53.0) Mean Corpuscular Volume 84fL (79-100) Mean Corpuscular Hemoglobin 27pg (25-35) Mean Corpuscular Hemoglobin Concent 33g/dL (31-37) Red Cell Distribution Width 15.9% (11.5-14.5) Platelet Count 429x10^3/uL (140-400) Prothrombin Time 17.3SEC (11.7-14.0) Prothromb Time International Ratio 1.5 (0.8-1.1) Sodium Level 137mmol/L (136-145) Potassium Level 5.6mmol/L (3.5-5.1) Chloride Level 104mmol/L (98-107) Carbon Dioxide Level 27mmol/L (21-32) Anion Gap 6 (6-14) Blood Urea Nitrogen 21mg/dL (8-26) Creatinine 0.8mg/dL (0.7-1.3) Estimated GFR (Cockcroft-Gault) 100.4 Glucose Level 367mg/dL (70-99) Calcium Level 8.3mg/dL (8.5-10.1) Phosphorus Level 3.9mg/dL (2.6-4.7) Magnesium Level 2.1mg/dL (1.8-2.4) Creatine Kinase 29U/L (39-308) Albumin 1.7g/dL (3.4-5.0) Review of Systems Review of Systems Complains of fatigue Complains of weakness Assessment and Plan Assessmemt and Plan Problems Medical Problems: (1) Acute renal injury Status: Acute (2) Dehydration Status: Acute (3) Hyponatremia Status: Acute (4) Nausea & vomiting Status: Acute (5) Uncontrolled diabetes mellitus Status: Acute Assessment: 1. Sepsis 2. DM 2 uncontrolled - A1C 11 3. NELIDA 4. Hyponatremia 5. LLL lung nodule 6. Acute Bronchitis 7. Staph UTI 8. Hypoalbuminemia 9. Acute on chronic pain 10. UE DVT 11. Obesity - BMI 38 12. L shoulder abscess Plan: Ortho performed I&D of L shoulder abscess - will need repeat I&D in 28-36 hours , will consult general surgery per ortho request ID following - continue cefazolin Pulm following - CT and follow up as outpatient Repeat labs Continue home meds PTOT Problems: Comment Review of Relevant I have reviewed the following items [place] (where applicable) has been applied. Labs Laboratory Tests Test 07/13/16 11:59 07/13/16 17:11 07/13/16 19:30 07/13/16 20:27 Glucose (Fingerstick) 326mg/dL (70-99) 235mg/dL (70-99) 242mg/dL (70-99) Heparin Anti-Xa Act, Unfractionated < 0.10IU/mL (0.30-0.70) Test 07/14/16 06:05 07/14/16 08:33 07/14/16 10:27 07/14/16 15:23 White Blood Count 9.7x10^3/uL (4.0-11.0) Red Blood Count 3.72x10^6/uL (4.30-5.70) Hemoglobin 10.3g/dL (13.0-17.5) Hematocrit 31.9% (39.0-53.0) Mean Corpuscular Volume 86fL (79-100) Mean Corpuscular Hemoglobin 28pg (25-35) Mean Corpuscular Hemoglobin Concent 32g/dL (31-37) Red Cell Distribution Width 15.7% (11.5-14.5) Platelet Count 372x10^3/uL (140-400) Neutrophils (%) (Auto) 76% (31-73) Lymphocytes (%) (Auto) 18% (24-48) Monocytes (%) (Auto) 4% (0-9) Eosinophils (%) (Auto) 1% (0-3) Basophils (%) (Auto) 0% (0-3) Neutrophils # (Auto) 7.4x10^3uL (1.8-7.7) Lymphocytes # (Auto) 1.7x10^3/uL (1.0-4.8) Monocytes # (Auto) 0.4x10^3/uL (0.0-1.1) Eosinophils # (Auto) 0.1x10^3/uL (0.0-0.7) Basophils # (Auto) 0.0x10^3/uL (0.0-0.2) Prothrombin Time 17.7SEC (11.7-14.0) Prothromb Time International Ratio 1.6 (0.8-1.1) Sodium Level 136mmol/L (136-145) Potassium Level 3.8mmol/L (3.5-5.1) Chloride Level 103mmol/L (98-107) Carbon Dioxide Level 26mmol/L (21-32) Anion Gap 7 (6-14) Blood Urea Nitrogen 18mg/dL (8-26) Creatinine 0.9mg/dL (0.7-1.3) Estimated GFR (Cockcroft-Gault) 87.6 Glucose Level 206mg/dL (70-99) Calcium Level 7.9mg/dL (8.5-10.1) Phosphorus Level 3.0mg/dL (2.6-4.7) Magnesium Level 2.1mg/dL (1.8-2.4) Creatine Kinase 13U/L (39-308) Albumin 1.8g/dL (3.4-5.0) Glucose (Fingerstick) 189mg/dL (70-99) 240mg/dL (70-99) 232mg/dL (70-99) Test 07/14/16 17:57 07/14/16 18:47 07/14/16 20:19 07/15/16 04:46 Glucose (Fingerstick) 252mg/dL (70-99) 225mg/dL (70-99) 310mg/dL (70-99) White Blood Count 8.6x10^3/uL (4.0-11.0) Red Blood Count 4.23x10^6/uL (4.30-5.70) Hemoglobin 11.5g/dL (13.0-17.5) Hematocrit 35.3% (39.0-53.0) Mean Corpuscular Volume 84fL (79-100) Mean Corpuscular Hemoglobin 27pg (25-35) Mean Corpuscular Hemoglobin Concent 33g/dL (31-37) Red Cell Distribution Width 15.9% (11.5-14.5) Platelet Count 429x10^3/uL (140-400) Prothrombin Time 17.3SEC (11.7-14.0) Prothromb Time International Ratio 1.5 (0.8-1.1) Sodium Level 137mmol/L (136-145) Potassium Level 5.6mmol/L (3.5-5.1) Chloride Level 104mmol/L (98-107) Carbon Dioxide Level 27mmol/L (21-32) Anion Gap 6 (6-14) Blood Urea Nitrogen 21mg/dL (8-26) Creatinine 0.8mg/dL (0.7-1.3) Estimated GFR (Cockcroft-Gault) 100.4 Glucose Level 367mg/dL (70-99) Calcium Level 8.3mg/dL (8.5-10.1) Phosphorus Level 3.9mg/dL (2.6-4.7) Magnesium Level 2.1mg/dL (1.8-2.4) Creatine Kinase 29U/L (39-308) Albumin 1.7g/dL (3.4-5.0) Test 07/15/16 08:00 Glucose (Fingerstick) 394mg/dL (70-99) Laboratory Tests Test 07/14/16 10:27 07/14/16 15:23 07/14/16 17:57 07/14/16 18:47 Glucose (Fingerstick) 240mg/dL (70-99) 232mg/dL (70-99) 252mg/dL (70-99) 225mg/dL (70-99) Test 07/14/16 20:19 07/15/16 04:46 07/15/16 08:00 Glucose (Fingerstick) 310mg/dL (70-99) 394mg/dL (70-99) White Blood Count 8.6x10^3/uL (4.0-11.0) Red Blood Count 4.23x10^6/uL (4.30-5.70) Hemoglobin 11.5g/dL (13.0-17.5) Hematocrit 35.3% (39.0-53.0) Mean Corpuscular Volume 84fL (79-100) Mean Corpuscular Hemoglobin 27pg (25-35) Mean Corpuscular Hemoglobin Concent 33g/dL (31-37) Red Cell Distribution Width 15.9% (11.5-14.5) Platelet Count 429x10^3/uL (140-400) Prothrombin Time 17.3SEC (11.7-14.0) Prothromb Time International Ratio 1.5 (0.8-1.1) Sodium Level 137mmol/L (136-145) Potassium Level 5.6mmol/L (3.5-5.1) Chloride Level 104mmol/L (98-107) Carbon Dioxide Level 27mmol/L (21-32) Anion Gap 6 (6-14) Blood Urea Nitrogen 21mg/dL (8-26) Creatinine 0.8mg/dL (0.7-1.3) Estimated GFR (Cockcroft-Gault) 100.4 Glucose Level 367mg/dL (70-99) Calcium Level 8.3mg/dL (8.5-10.1) Phosphorus Level 3.9mg/dL (2.6-4.7) Magnesium Level 2.1mg/dL (1.8-2.4) Creatine Kinase 29U/L (39-308) Albumin 1.7g/dL (3.4-5.0) Microbiology 07/14/16 Blood Culture - Preliminary, Resulted NO GROWTH AFTER 1 DAY 07/09/16 Urine Culture - Final, Complete 07/09/16 Urine Culture Result 1 (EMILI) - Final, Complete 07/09/16 Antimicrobic Susceptibility - Final, Complete Medications Current Medications Sodium Chloride (Iv Sodium Chloride 0.9% 1000ml Bag) 1,000 ml @ 1,000 mls/hr Q1H IV Last administered on 07/09/16 19:34; Start 07/09/16 at 19:18; Stop at 20:17; Status DC Hydromorphone HCl (Dilaudid) 2 mg 1X ONCE IV ; Start 07/09/16 at 19:30; Stop at 19:30; Status DC Ondansetron HCl (Zofran) 4 mg 1X ONCE IV Last administered on 07/09/16 19:33 ; Start 07/09/16 at 19:30; Stop 07/09/16 at 19:31; Status DC Hydromorphone HCl (Dilaudid) 1 mg 1X ONCE IV Last administered on 07/09/16 19 :33; Start 07/09/16 at 19:30; Stop 07/09/16 at 19:31; Status DC Ondansetron HCl (Zofran) 4 mg PRN Q8HRS PRN IV NAUSEA/VOMITING; Start 07/09/16 at 20:30; Stop 07/09/16 at 21:00; Status DC Morphine Sulfate 4 mg 4 mg PRN Q2HR PRN IV PAIN Last administered on 07/10/16 06:36; Start 07/09/16 at 20:30; Stop 07/10/16 at 13:00; Status DC Sodium Chloride (Iv Sodium Chloride 0.9% 1000ml Bag) 1,000 ml @ 150 mls/hr Q6H40M IV Last administered on 07/09/16 20:41; Start 07/09/16 at 20:24; Stop 07/10/16 at 15:29; Status DC Acetaminophen (Tylenol) 650 mg PRN Q4HRS PRN PO FEVER; Start 07/09/16 at 20:30 ; Stop 07/09/16 at 21:00; Status DC Acetaminophen (Tylenol) 650 mg PRN Q6HRS PRN PO FEVER; Start 07/09/16 at 21:00 ; Stop 07/10/16 at 15:28; Status DC Ondansetron HCl 4 mg 4 mg PRN Q6HRS PRN IV NAUSEA/VOMITING; Start 07/09/16 at 21:00 Sodium Chloride (Iv Sodium Chloride 0.9% 1000ml Bag) 1,000 ml @ 150 mls/hr Q6H40M IV Last administered on 07/13/16 17:59; Start 07/09/16 at 21:00; Stop 07/13/16 at 19:27; Status DC Insulin Aspart (Novolog) 0-9 UNITS TIDWMEALS SQ Last administered on 07/14/16 21:05; Start 07/10/16 at 08:00 Dextrose 12.5 gm 12.5 gm PRN Q15MIN PRN IV SEE COMMENTS; Start 07/09/16 at 21: 00 Levofloxacin/ Dextrose (LEVAQUIN 500mg PREMIX) 100 ml @ 100 mls/hr Q24H IV Last administered on 07/12/16 02:49; Start 07/09/16 at 22:00; Stop 07/12/16 at 10:37; Status DC Guaifenesin (Mucinex) 600 mg BID PO Last administered on 07/15/16 08:07; Start 07/09/16 at 21:00 Albuterol Sulfate 2.5 mg 2.5 mg PRN Q4HRS PRN NEB SHORTNESS OF BREATH; Start at 21:00 Sodium Chloride (Iv Sodium Chloride 0.9% 1000ml Bag) 1,000 ml @ 0 mls/hr 1X ONCE IV Last administered on 07/10/16 10:27; Start 07/10/16 at 10:30; Stop at 10:31; Status DC Alprazolam (Xanax) 0.5 mg PRN Q8HRS PRN PO ANXIETY / AGITATION Last administered on 07/13/16 00:52; Start 07/10/16 at 13:00 Acetaminophen/ Hydrocodone Bitart (Lortab 5/325) 1 tab PRN Q6HRS PRN PO MODERATE - SEVERE PAIN Last administered on 07/15/16 08:08; Start 07/10/16 at 13:00 Acetaminophen (Tylenol) 650 mg PRN Q6HRS PRN PO MILD PAIN / TEMP Last administered on 07/14/16 00:08; Start 07/10/16 at 13:00 Heparin Sodium (Porcine) 5000 unit 5,000 unit Q8HRS SQ Last administered on 14:02; Start 07/10/16 at 14:00; Stop 07/11/16 at 22:55; Status DC Magnesium Sulfate/ Dextrose (Magnesium Sulfate PREMIX 2GM) 50 ml @ 25 mls/hr PRN DAILY PRN IV for Mag < 1.7 on am labs; Start 07/10/16 at 14:00 Diphenhydramine HCl (Benadryl) 25 mg PRN Q6HRS PRN IVP ITCHING Last administered on 07/13/16 01:52; Start 07/11/16 at 01:30 Lorazepam 2 mg 2 mg PRN Q4HRS PRN IV ANXIETY / AGITATION Last administered on 10:19; Start 07/11/16 at 01:30 Albumin Human (Albuminar) 100 ml @ 100 mls/hr TID IV Last administered on 07/13 13:56; Start 07/11/16 at 14:00; Stop 07/13/16 at 09:59; Status DC Insulin Aspart (Novolog) 10 units TIDAC SQ Last administered on 07/12/16 08:46 ; Start 07/11/16 at 12:30; Stop 07/12/16 at 09:17; Status DC Insulin Detemir 25 units 25 units QHS SQ Last administered on 07/12/16 01:48; Start 07/11/16 at 21:00; Stop 07/12/16 at 09:17; Status DC Heparin Sodium/ Dextrose 500 ml @ 0 mls/hr CONT PRN IV SEE I/O RECORD Last administered on 07/13/16 12:12; Start 07/11/16 at 23:00; Stop 07/13/16 at 12:32 ; Status DC Heparin Sodium (Porcine) 3,800 unit PRN Q6HRS PRN IV FOR UFH LEVEL LESS THAN 0.2 Last administered on 07/12/16 19:37; Start 07/11/16 at 23:00; Stop at 12:32; Status DC Heparin Sodium (Porcine) 1,900 unit PRN Q6HRS PRN IV FOR UFH LEVEL 0.2 - 0.29 Last administered on 07/13/16 02:33; Start 07/11/16 at 23:00; Stop 07/13/16 at 12:32; Status DC Warfarin Sodium (Coumadin Per Pharmacy) 1 each PRN DAILY PRN MC PER PROTOCOL Last administered on 07/14/16 12:35; Start 07/11/16 at 23:00 Warfarin Sodium (Coumadin) 5 mg 1X ONCE PO Last administered on 07/12/16 01: 45; Start 07/12/16 at 00:15; Stop 07/12/16 at 00:16; Status DC Info (Anti-Coagulation Monitoring By Pharmacy) 1 each PRN DAILY PRN MC SEE COMMENTS Last administered on 07/12/16 01:37; Start 07/11/16 at 23:45 Heparin Sodium (Porcine) 10,000 unit 1X ONCE IV Last administered on 01:48; Start 07/12/16 at 01:15; Stop 07/12/16 at 01:16; Status DC Insulin Aspart (Novolog) 12 units TIDAC SQ Last administered on 07/13/16 12:08 ; Start 07/12/16 at 11:30; Stop 07/13/16 at 12:32; Status DC Insulin Detemir (Levemir) 30 units QHS SQ Last administered on 07/12/16 21:07 ; Start 07/12/16 at 21:00; Stop 07/13/16 at 12:32; Status DC Tramadol HCl (Ultram) 50 mg PRN Q6HRS PRN PO PAIN; Start 07/12/16 at 10:15 Tramadol HCl (Ultram) 50 mg 1X ONCE PO Last administered on 07/12/16 14:32; Start 07/12/16 at 10:15; Stop 07/12/16 at 10:29; Status DC Methylprednisolone Acetate (Depo-Medrol 40mg Vial) 40 mg 1X ONCE IM ; Start at 10:30; Stop 07/12/16 at 10:31; Status DC Bupivacaine HCl (Sensorcaine-Mpf 0.25%) 10 ml 1X ONCE IJ ; Start 07/12/16 at 10 :30; Stop 07/12/16 at 10:31; Status DC Hydromorphone HCl 1 mg 1 mg 1X ONCE IV Last administered on 07/12/16 10:55; Start 07/12/16 at 10:30; Stop 07/12/16 at 10:46; Status DC Cefazolin Sodium 2 gm/Sodium Chloride 50 ml @ 100 mls/hr Q8HRS IV ; Start 07/12 at 11:00; Status Cancel Cefazolin Sodium/ Sodium Chloride (Ancef/Iv Sodium Chloride 0.9% 50ml) 50 ml @ 100 mls/hr Q8HRS IV Last administered on 07/15/16 04:57; Start 07/12/16 at 11: 00 Warfarin Sodium (Coumadin) 6 mg 1X WARF ONCE PO Last administered on 17:58; Start 07/12/16 at 16:00; Stop 07/12/16 at 16:01; Status DC Hydromorphone HCl (Dilaudid) 1 mg PRN Q4HRS PRN IVP PAIN Last administered on 22:25; Start 07/12/16 at 15:30 Polyethylene Glycol (miraLAX PACKET) 17 gm BID PO Last administered on 08:07; Start 07/12/16 at 21:00 Docusate Sodium (Colace) 100 mg PRN DAILY PRN PO CONSTIPATION; Start 07/12/16 at 15:30 Docusate Sodium (Colace) 100 mg DAILY PO Last administered on 07/15/16 08:07; Start 07/13/16 at 09:00 Magnesium Hydroxide (Milk Of Magnesia) 2,400 mg PRN DAILY PRN PO CONSTIPATION; Start 07/12/16 at 15:30 Gadobutrol (Gadavist) 7 mmol 1X ONCE IV Last administered on 07/13/16 10:45; Start 07/13/16 at 10:45; Stop 07/13/16 at 10:51; Status DC Gadobutrol (Gadavist) 7 mmol 1X ONCE IV Last administered on 07/13/16 10:45; Start 07/13/16 at 10:45; Stop 07/13/16 at 10:51; Status DC Warfarin Sodium (Coumadin) 10 mg 1X WARF ONCE PO Last administered on 17:56; Start 07/13/16 at 16:00; Stop 07/13/16 at 16:01; Status DC Enoxaparin Sodium (Lovenox Per Pharmacy Treatment Dosing) 1 each PRN DAILY PRN MC SEE COMMENTS; Start 07/13/16 at 12:30 Insulin Aspart (Novolog) 15 units TIDAC SQ Last administered on 07/15/16 08:15 ; Start 07/13/16 at 16:30 Insulin Detemir (Levemir) 40 units QHS SQ Last administered on 07/14/16 21:06 ; Start 07/13/16 at 21:00 Enoxaparin Sodium (Lovenox 150mg Syringe) 140 mg BID SQ Last administered on 08:07; Start 07/13/16 at 21:00 Warfarin Sodium (Coumadin) 15 mg 1X WARF ONCE PO ; Start 07/14/16 at 16:00; Stop 07/14/16 at 16:01; Status DC Ondansetron HCl (Zofran) 4 mg PRN Q6HRS PRN IV Nausea; Start 07/14/16 at 13:45 ; Stop 07/14/16 at 20:00; Status DC Fentanyl Citrate (Fentanyl 2ml Vial) 25 mcg PRN Q5MIN PRN IV MILD PAIN; Start 07/14/16 at 13:45; Stop 07/14/16 at 20:00; Status DC Fentanyl Citrate (Fentanyl 2ml Vial) 50 mcg PRN Q5MIN PRN IV MODERATE PAIN Last administered on 07/14/16 18:15; Start 07/14/16 at 13:45; Stop 07/15/16 at 20:00 Morphine Sulfate 1 mg 1 mg PRN Q10MIN PRN IV SEVERE PAIN; Start 07/14/16 at 13: 45; Stop 07/14/16 at 20:00; Status DC Lactated Ringer's (Iv Lactated Ringers) 1,000 ml @ 30 mls/hr Q24H IV ; Start at 13:42; Stop 07/14/16 at 19:44; Status DC Lidocaine HCl 2 ml 1X PRN PRN ID IV START; Start 07/14/16 at 13:45; Stop at 20:00; Status DC Hydromorphone HCl (Dilaudid) 0.5 mg PRN Q10MIN PRN IV SEV PAIN,Second choice; Start 07/14/16 at 13:45; Stop 07/14/16 at 18:00; Status DC Prochlorperazine Edisylate (Compazine) 5 mg PACU PRN PRN IV NAUSEA Last administered on 07/14/16t 17:55; Start 07/14/16 at 13:45; Stop 07/14/16 at 20:00 ; Status DC Bupivacaine HCl/ Epinephrine Bitart 50 ml 50 ml STK-MED ONCE .ROUTE ; Start at 15:20; Stop 07/14/16 at 15:21; Status DC Propofol (Diprivan) 20 ml @ As Directed STK-MED ONCE IV ; Start 07/14/16 at 15: 26; Stop 07/14/16 at 15:27; Status DC Lidocaine HCl 100 mg STK-MED ONCE .ROUTE ; Start 07/14/16 at 15:26; Stop at 15:27; Status DC Fentanyl Citrate (Fentanyl 2ml Vial) 100 mcg STK-MED ONCE .ROUTE ; Start at 15:27; Stop 07/14/16 at 15:28; Status DC Rocuronium [place] (Zemuron) 50 mg STK-MED ONCE .ROUTE ; Start 07/14/16 at 15:27 ; Stop 07/14/16 at 15:28; Status DC Dexamethasone Sodium Phosphate (Decadron) 20 mg STK-MED ONCE .ROUTE ; Start at 16:34; Stop 07/14/16 at 16:35; Status DC Desflurane (Suprane) 30 ml STK-MED ONCE IH ; Start 07/14/16 at 16:35; Stop 07/14 at 16:36; Status DC Ondansetron HCl (Zofran) 4 mg STK-MED ONCE .ROUTE ; Start 07/14/16 at 16:46; Stop 07/14/16 at 16:47; Status DC Glycopyrrolate (Robinul) 1 mg STK-MED ONCE .ROUTE ; Start 07/14/16 at 16:46; Stop 07/14/16 at 16:47; Status DC Neostigmine Methylsulfate 5 mg STK-MED ONCE .ROUTE ; Start 07/14/16 at 16:46; Stop 07/14/16 at 16:47; Status DC Fentanyl Citrate (Fentanyl 2ml Vial) 100 mcg STK-MED ONCE .ROUTE ; Start at 16:57; Stop 07/14/16 at 16:58; Status DC Insulin Aspart 10 units 10 units 1X ONCE SQ Last administered on 07/15/16t 08: 26; Start 07/15/16 at 08:30; Stop 07/15/16 at 08:31; Status DC Cefazolin Sodium/ Dextrose (Ancef 2gm Premix) 50 ml @ 100 mls/hr 1X PREOP PRN IV PER PROTOCOL; Start 07/16/16 at 10:30; Stop 07/16/16 at 18:00 Active Scripts Active Phenergan (Promethazine HCl) 25 Mg Supp.rect 25 Mg RC Q8HRS PRN Zofran Odt (Ondansetron) 4 Mg Tab.rapdis 1 Tab SL Q8HRS PRN Vitals/I & O Vital Sign - Last 24 Hours 07/14/16 07/14/16 07/14/16 07/14/16 11:00 15:18 17:43 17:58 Temp 98.8 100.0 97.6 98.8 100.0 97.6 Pulse 102 96 107 104 Resp 18 19 B/P 135/60 150/78 148/65 148/65 Pulse Ox 96 99 98 97 O2 Delivery Room Air Room Air Simple Mask Room Air O2 Flow Rate 10 07/14/16 07/14/16 07/14/16 07/14/16 18:03 18:13 18:15 18:26 Temp 97.3 98.1 97.3 98.1 Pulse 104 103 Resp 18 20 B/P 104/90 140/72 Pulse Ox 92 95 O2 Delivery Room Air Nasal Cannula Room Air Nasal Cannula O2 Flow Rate 2 2.0 07/14/16 07/14/16 07/14/16 07/14/16 18:31 19:00 19:30 20:00 Temp 98.1 98.1 98.1 98.1 Pulse 100 93 90 Resp 20 B/P 135/70 140/73 138/71 Pulse Ox 94 95 96 O2 Delivery Nasal Cannula Nasal Cannula Nasal Cannula Nasal Cannula O2 Flow Rate 2.0 2.0 07/14/16 07/14/16 07/14/16 07/14/16 20:00 20:30 21:00 22:00 Temp 97.9 97.9 Pulse 100 102 92 97 Resp B/P 147/82 152/77 144/75 129/67 Pulse Ox 95 92 94 96 O2 Delivery Nasal Cannula Nasal Cannula Nasal Cannula Nasal Cannula O2 Flow Rate 2.0 2.0 2.0 2.0 07/14/16 07/15/16 07/15/16 07/15/16 22:07 03:00 07:35 08:08 Pulse Ox 94 O2 Delivery Nasal Cannula Nasal Cannula Nasal Cannula Nasal Cannula O2 Flow Rate 2.0 2.0 2.0 2.0 07/15/16 09:10 Pulse Ox 94 O2 Delivery Nasal Cannula O2 Flow Rate 2.0 Intake and Output 07/14/16 07/14/16 07/15/16 15:00 23:00 07:00 Intake Total 50 ml 50 ml 770 ml Output Total 1800 ml 2150 ml Balance 50 ml -1750 ml -1380 ml LILIAN FIELD III DO Jul 15, 2016 10:25
--- NOTE | 2016-07-15 10:46 | PDOC ---
PROGRESS NOTES Subjective Subjective He admits continued left shoulder pain and stiffness. Objective Objective Vital Signs Date Time Temp Pulse Resp B/P Pulse Ox O2 Delivery O2 Flow Rate FiO2 07/15/16 09:10 94 Nasal Cannula 2.0 07/14/16 22:00 97.9 97 20 129/67 97.9 Intake and Output 07/15/16 07:00 Intake Total 870 ml Output Total 3950 ml Balance -3080 ml Intake Oral 720 ml IV Total 150 ml Output Urine Total 3950 ml Physical Exam Physical Exam He is still protecting his left shoulder. Assessment Assessment Problems Medical Problems: (1) Acute renal injury Status: Acute (2) Dehydration Status: Acute (3) Hyponatremia Status: Acute (4) Nausea & vomiting Status: Acute (5) Uncontrolled diabetes mellitus Status: Acute Plan Plan of Care To continue present physical and occupational therapy follow up as tolerated. Comment Review of Relevant I have reviewed the following items [place] (where applicable) has been applied. Labs Laboratory Tests Test 07/13/16 11:59 07/13/16 17:11 07/13/16 19:30 07/13/16 20:27 Glucose (Fingerstick) 326mg/dL (70-99) 235mg/dL (70-99) 242mg/dL (70-99) Heparin Anti-Xa Act, Unfractionated < 0.10IU/mL (0.30-0.70) Test 07/14/16 06:05 07/14/16 08:33 07/14/16 10:27 07/14/16 15:23 White Blood Count 9.7x10^3/uL (4.0-11.0) Red Blood Count 3.72x10^6/uL (4.30-5.70) Hemoglobin 10.3g/dL (13.0-17.5) Hematocrit 31.9% (39.0-53.0) Mean Corpuscular Volume 86fL (79-100) Mean Corpuscular Hemoglobin 28pg (25-35) Mean Corpuscular Hemoglobin Concent 32g/dL (31-37) Red Cell Distribution Width 15.7% (11.5-14.5) Platelet Count 372x10^3/uL (140-400) Neutrophils (%) (Auto) 76% (31-73) Lymphocytes (%) (Auto) 18% (24-48) Monocytes (%) (Auto) 4% (0-9) Eosinophils (%) (Auto) 1% (0-3) Basophils (%) (Auto) 0% (0-3) Neutrophils # (Auto) 7.4x10^3uL (1.8-7.7) Lymphocytes # (Auto) 1.7x10^3/uL (1.0-4.8) Monocytes # (Auto) 0.4x10^3/uL (0.0-1.1) Eosinophils # (Auto) 0.1x10^3/uL (0.0-0.7) Basophils # (Auto) 0.0x10^3/uL (0.0-0.2) Prothrombin Time 17.7SEC (11.7-14.0) Prothromb Time International Ratio 1.6 (0.8-1.1) Sodium Level 136mmol/L (136-145) Potassium Level 3.8mmol/L (3.5-5.1) Chloride Level 103mmol/L (98-107) Carbon Dioxide Level 26mmol/L (21-32) Anion Gap 7 (6-14) Blood Urea Nitrogen 18mg/dL (8-26) Creatinine 0.9mg/dL (0.7-1.3) Estimated GFR (Cockcroft-Gault) 87.6 Glucose Level 206mg/dL (70-99) Calcium Level 7.9mg/dL (8.5-10.1) Phosphorus Level 3.0mg/dL (2.6-4.7) Magnesium Level 2.1mg/dL (1.8-2.4) Creatine Kinase 13U/L (39-308) Albumin 1.8g/dL (3.4-5.0) Glucose (Fingerstick) 189mg/dL (70-99) 240mg/dL (70-99) 232mg/dL (70-99) Test 07/14/16 17:57 07/14/16 18:47 07/14/16 20:19 07/15/16 04:46 Glucose (Fingerstick) 252mg/dL (70-99) 225mg/dL (70-99) 310mg/dL (70-99) White Blood Count 8.6x10^3/uL (4.0-11.0) Red Blood Count 4.23x10^6/uL (4.30-5.70) Hemoglobin 11.5g/dL (13.0-17.5) Hematocrit 35.3% (39.0-53.0) Mean Corpuscular Volume 84fL (79-100) Mean Corpuscular Hemoglobin 27pg (25-35) Mean Corpuscular Hemoglobin Concent 33g/dL (31-37) Red Cell Distribution Width 15.9% (11.5-14.5) Platelet Count 429x10^3/uL (140-400) Prothrombin Time 17.3SEC (11.7-14.0) Prothromb Time International Ratio 1.5 (0.8-1.1) Sodium Level 137mmol/L (136-145) Potassium Level 5.6mmol/L (3.5-5.1) Chloride Level 104mmol/L (98-107) Carbon Dioxide Level 27mmol/L (21-32) Anion Gap 6 (6-14) Blood Urea Nitrogen 21mg/dL (8-26) Creatinine 0.8mg/dL (0.7-1.3) Estimated GFR (Cockcroft-Gault) 100.4 Glucose Level 367mg/dL (70-99) Calcium Level 8.3mg/dL (8.5-10.1) Phosphorus Level 3.9mg/dL (2.6-4.7) Magnesium Level 2.1mg/dL (1.8-2.4) Creatine Kinase 29U/L (39-308) Albumin 1.7g/dL (3.4-5.0) Test 07/15/16 08:00 Glucose (Fingerstick) 394mg/dL (70-99) Laboratory Tests Test 07/14/16 15:23 07/14/16 17:57 07/14/16 18:47 07/14/16 20:19 Glucose (Fingerstick) 232mg/dL (70-99) 252mg/dL (70-99) 225mg/dL (70-99) 310mg/dL (70-99) Test 07/15/16 04:46 07/15/16 08:00 White Blood Count 8.6x10^3/uL (4.0-11.0) Red Blood Count 4.23x10^6/uL (4.30-5.70) Hemoglobin 11.5g/dL (13.0-17.5) Hematocrit 35.3% (39.0-53.0) Mean Corpuscular Volume 84fL (79-100) Mean Corpuscular Hemoglobin 27pg (25-35) Mean Corpuscular Hemoglobin Concent 33g/dL (31-37) Red Cell Distribution Width 15.9% (11.5-14.5) Platelet Count 429x10^3/uL (140-400) Prothrombin Time 17.3SEC (11.7-14.0) Prothromb Time International Ratio 1.5 (0.8-1.1) Sodium Level 137mmol/L (136-145) Potassium Level 5.6mmol/L (3.5-5.1) Chloride Level 104mmol/L (98-107) Carbon Dioxide Level 27mmol/L (21-32) Anion Gap 6 (6-14) Blood Urea Nitrogen 21mg/dL (8-26) Creatinine 0.8mg/dL (0.7-1.3) Estimated GFR (Cockcroft-Gault) 100.4 Glucose Level 367mg/dL (70-99) Calcium Level 8.3mg/dL (8.5-10.1) Phosphorus Level 3.9mg/dL (2.6-4.7) Magnesium Level 2.1mg/dL (1.8-2.4) Creatine Kinase 29U/L (39-308) Albumin 1.7g/dL (3.4-5.0) Glucose (Fingerstick) 394mg/dL (70-99) Microbiology 07/14/16 Blood Culture - Preliminary, Resulted NO GROWTH AFTER 1 DAY 07/09/16 Urine Culture - Final, Complete 07/09/16 Urine Culture Result 1 (EMILI) - Final, Complete 07/09/16 Antimicrobic Susceptibility - Final, Complete Medications Current Medications Sodium Chloride (Iv Sodium Chloride 0.9% 1000ml Bag) 1,000 ml @ 1,000 mls/hr Q1H IV Last administered on 07/09/16t 19:34; Start 07/09/16 at 19:18; Stop at 20:17; Status DC Hydromorphone HCl (Dilaudid) 2 mg 1X ONCE IV ; Start 07/09/16 at 19:30; Stop at 19:30; Status DC Ondansetron HCl (Zofran) 4 mg 1X ONCE IV Last administered on 07/09/16 19:33 ; Start 07/09/16 at 19:30; Stop 07/09/16 at 19:31; Status DC Hydromorphone HCl (Dilaudid) 1 mg 1X ONCE IV Last administered on 07/09/16 19 :33; Start 07/09/16 at 19:30; Stop 07/09/16 at 19:31; Status DC Ondansetron HCl (Zofran) 4 mg PRN Q8HRS PRN IV NAUSEA/VOMITING; Start 07/09/16 at 20:30; Stop 07/09/16 at 21:00; Status DC Morphine Sulfate 4 mg 4 mg PRN Q2HR PRN IV PAIN Last administered on 07/10/16 06:36; Start 07/09/16 at 20:30; Stop 07/10/16 at 13:00; Status DC Sodium Chloride (Iv Sodium Chloride 0.9% 1000ml Bag) 1,000 ml @ 150 mls/hr Q6H40M IV Last administered on 07/09/16 20:41; Start 07/09/16 at 20:24; Stop 07/10/16 at 15:29; Status DC Acetaminophen (Tylenol) 650 mg PRN Q4HRS PRN PO FEVER; Start 07/09/16 at 20:30 ; Stop 07/09/16 at 21:00; Status DC Acetaminophen (Tylenol) 650 mg PRN Q6HRS PRN PO FEVER; Start 07/09/16 at 21:00 ; Stop 07/10/16 at 15:28; Status DC Ondansetron HCl 4 mg 4 mg PRN Q6HRS PRN IV NAUSEA/VOMITING; Start 07/09/16 at 21:00 Sodium Chloride (Iv Sodium Chloride 0.9% 1000ml Bag) 1,000 ml @ 150 mls/hr Q6H40M IV Last administered on 07/13/16 17:59; Start 07/09/16 at 21:00; Stop 07/13/16 at 19:27; Status DC Insulin Aspart (Novolog) 0-9 UNITS TIDWMEALS SQ Last administered on 07/14/16 21:05; Start 07/10/16 at 08:00 Dextrose 12.5 gm 12.5 gm PRN Q15MIN PRN IV SEE COMMENTS; Start 07/09/16 at 21: 00 Levofloxacin/ Dextrose (LEVAQUIN 500mg PREMIX) 100 ml @ 100 mls/hr Q24H IV Last administered on 07/12/16 02:49; Start 07/09/16 at 22:00; Stop 07/12/16 at 10:37; Status DC Guaifenesin (Mucinex) 600 mg BID PO Last administered on 07/15/16 08:07; Start 07/09/16 at 21:00 Albuterol Sulfate 2.5 mg 2.5 mg PRN Q4HRS PRN NEB SHORTNESS OF BREATH; Start at 21:00 Sodium Chloride (Iv Sodium Chloride 0.9% 1000ml Bag) 1,000 ml @ 0 mls/hr 1X ONCE IV Last administered on 07/10/16 10:27; Start 07/10/16 at 10:30; Stop at 10:31; Status DC Alprazolam (Xanax) 0.5 mg PRN Q8HRS PRN PO ANXIETY / AGITATION Last administered on 07/13/16 00:52; Start 07/10/16 at 13:00 Acetaminophen/ Hydrocodone Bitart (Lortab 5/325) 1 tab PRN Q6HRS PRN PO MODERATE - SEVERE PAIN Last administered on 07/15/16 08:08; Start 07/10/16 at 13:00 Acetaminophen (Tylenol) 650 mg PRN Q6HRS PRN PO MILD PAIN / TEMP Last administered on 07/14/16 00:08; Start 07/10/16 at 13:00 Heparin Sodium (Porcine) 5000 unit 5,000 unit Q8HRS SQ Last administered on 14:02; Start 07/10/16 at 14:00; Stop 07/11/16 at 22:55; Status DC Magnesium Sulfate/ Dextrose (Magnesium Sulfate PREMIX 2GM) 50 ml @ 25 mls/hr PRN DAILY PRN IV for Mag < 1.7 on am labs; Start 07/10/16 at 14:00 Diphenhydramine HCl (Benadryl) 25 mg PRN Q6HRS PRN IVP ITCHING Last administered on 07/13/16 01:52; Start 07/11/16 at 01:30 Lorazepam 2 mg 2 mg PRN Q4HRS PRN IV ANXIETY / AGITATION Last administered on 10:19; Start 07/11/16 at 01:30 Albumin Human (Albuminar) 100 ml @ 100 mls/hr TID IV Last administered on 07/13 13:56; Start 07/11/16 at 14:00; Stop 07/13/16 at 09:59; Status DC Insulin Aspart (Novolog) 10 units TIDAC SQ Last administered on 07/12/16 08:46 ; Start 07/11/16 at 12:30; Stop 07/12/16 at 09:17; Status DC Insulin Detemir 25 units 25 units QHS SQ Last administered on 07/12/16 01:48; Start 07/11/16 at 21:00; Stop 07/12/16 at 09:17; Status DC Heparin Sodium/ Dextrose 500 ml @ 0 mls/hr CONT PRN IV SEE I/O RECORD Last administered on 07/13/16 12:12; Start 07/11/16 at 23:00; Stop 07/13/16 at 12:32 ; Status DC Heparin Sodium (Porcine) 3,800 unit PRN Q6HRS PRN IV FOR UFH LEVEL LESS THAN 0.2 Last administered on 07/12/16 19:37; Start 07/11/16 at 23:00; Stop at 12:32; Status DC Heparin Sodium (Porcine) 1,900 unit PRN Q6HRS PRN IV FOR UFH LEVEL 0.2 - 0.29 Last administered on 07/13/16 02:33; Start 07/11/16 at 23:00; Stop 07/13/16 at 12:32; Status DC Warfarin Sodium (Coumadin Per Pharmacy) 1 each PRN DAILY PRN MC PER PROTOCOL Last administered on 07/14/16 12:35; Start 07/11/16 at 23:00 Warfarin Sodium (Coumadin) 5 mg 1X ONCE PO Last administered on 07/12/16 01: 45; Start 07/12/16 at 00:15; Stop 07/12/16 at 00:16; Status DC Info (Anti-Coagulation Monitoring By Pharmacy) 1 each PRN DAILY PRN MC SEE COMMENTS Last administered on 07/12/16 01:37; Start 07/11/16 at 23:45 Heparin Sodium (Porcine) 10,000 unit 1X ONCE IV Last administered on 01:48; Start 07/12/16 at 01:15; Stop 07/12/16 at 01:16; Status DC Insulin Aspart (Novolog) 12 units TIDAC SQ Last administered on 07/13/16 12:08 ; Start 07/12/16 at 11:30; Stop 07/13/16 at 12:32; Status DC Insulin Detemir (Levemir) 30 units QHS SQ Last administered on 07/12/16 21:07 ; Start 07/12/16 at 21:00; Stop 07/13/16 at 12:32; Status DC Tramadol HCl (Ultram) 50 mg PRN Q6HRS PRN PO PAIN; Start 07/12/16 at 10:15 Tramadol HCl (Ultram) 50 mg 1X ONCE PO Last administered on 07/12/16 14:32; Start 07/12/16 at 10:15; Stop 07/12/16 at 10:29; Status DC Methylprednisolone Acetate (Depo-Medrol 40mg Vial) 40 mg 1X ONCE IM ; Start at 10:30; Stop 07/12/16 at 10:31; Status DC Bupivacaine HCl (Sensorcaine-Mpf 0.25%) 10 ml 1X ONCE IJ ; Start 07/12/16 at 10 :30; Stop 07/12/16 at 10:31; Status DC Hydromorphone HCl 1 mg 1 mg 1X ONCE IV Last administered on 07/12/16 10:55; Start 07/12/16 at 10:30; Stop 07/12/16 at 10:46; Status DC Cefazolin Sodium 2 gm/Sodium Chloride 50 ml @ 100 mls/hr Q8HRS IV ; Start 07/12 at 11:00; Status Cancel Cefazolin Sodium/ Sodium Chloride (Ancef/Iv Sodium Chloride 0.9% 50ml) 50 ml @ 100 mls/hr Q8HRS IV Last administered on 07/15/16 04:57; Start 07/12/16 at 11: 00 Warfarin Sodium (Coumadin) 6 mg 1X WARF ONCE PO Last administered on 17:58; Start 07/12/16 at 16:00; Stop 07/12/16 at 16:01; Status DC Hydromorphone HCl (Dilaudid) 1 mg PRN Q4HRS PRN IVP PAIN Last administered on 22:25; Start 07/12/16 at 15:30 Polyethylene Glycol (miraLAX PACKET) 17 gm BID PO Last administered on 08:07; Start 07/12/16 at 21:00 Docusate Sodium (Colace) 100 mg PRN DAILY PRN PO CONSTIPATION; Start 07/12/16 at 15:30 Docusate Sodium (Colace) 100 mg DAILY PO Last administered on 07/15/16 08:07; Start 07/13/16 at 09:00 Magnesium Hydroxide (Milk Of Magnesia) 2,400 mg PRN DAILY PRN PO CONSTIPATION; Start 07/12/16 at 15:30 Gadobutrol (Gadavist) 7 mmol 1X ONCE IV Last administered on 07/13/16 10:45; Start 07/13/16 at 10:45; Stop 07/13/16 at 10:51; Status DC Gadobutrol (Gadavist) 7 mmol 1X ONCE IV Last administered on 07/13/16 10:45; Start 07/13/16 at 10:45; Stop 07/13/16 at 10:51; Status DC Warfarin Sodium (Coumadin) 10 mg 1X WARF ONCE PO Last administered on 17:56; Start 07/13/16 at 16:00; Stop 07/13/16 at 16:01; Status DC Enoxaparin Sodium (Lovenox Per Pharmacy Treatment Dosing) 1 each PRN DAILY PRN MC SEE COMMENTS; Start 07/13/16 at 12:30 Insulin Aspart (Novolog) 15 units TIDAC SQ Last administered on 07/15/16 08:15 ; Start 07/13/16 at 16:30 Insulin Detemir (Levemir) 40 units QHS SQ Last administered on 07/14/16 21:06 ; Start 07/13/16 at 21:00 Enoxaparin Sodium (Lovenox 150mg Syringe) 140 mg BID SQ Last administered on 08:07; Start 07/13/16 at 21:00 Warfarin Sodium (Coumadin) 15 mg 1X WARF ONCE PO ; Start 07/14/16 at 16:00; Stop 07/14/16 at 16:01; Status DC Ondansetron HCl (Zofran) 4 mg PRN Q6HRS PRN IV Nausea; Start 07/14/16 at 13:45 ; Stop 07/14/16 at 20:00; Status DC Fentanyl Citrate (Fentanyl 2ml Vial) 25 mcg PRN Q5MIN PRN IV MILD PAIN; Start 07/14/16 at 13:45; Stop 07/14/16 at 20:00; Status DC Fentanyl Citrate (Fentanyl 2ml Vial) 50 mcg PRN Q5MIN PRN IV MODERATE PAIN Last administered on 07/14/16 18:15; Start 07/14/16 at 13:45; Stop 07/15/16 at 20:00 Morphine Sulfate 1 mg 1 mg PRN Q10MIN PRN IV SEVERE PAIN; Start 07/14/16 at 13: 45; Stop 07/14/16 at 20:00; Status DC Lactated Ringer's (Iv Lactated Ringers) 1,000 ml @ 30 mls/hr Q24H IV ; Start at 13:42; Stop 07/14/16 at 19:44; Status DC Lidocaine HCl 2 ml 1X PRN PRN ID IV START; Start 07/14/16 at 13:45; Stop at 20:00; Status DC Hydromorphone HCl (Dilaudid) 0.5 mg PRN Q10MIN PRN IV SEV PAIN,Second choice; Start 07/14/16 at 13:45; Stop 07/14/16 at 18:00; Status DC Prochlorperazine Edisylate (Compazine) 5 mg PACU PRN PRN IV NAUSEA Last administered on 07/14/16 17:55; Start 07/14/16 at 13:45; Stop 07/14/16 at 20:00 ; Status DC Bupivacaine HCl/ Epinephrine Bitart 50 ml 50 ml STK-MED ONCE .ROUTE ; Start at 15:20; Stop 07/14/16 at 15:21; Status DC Propofol (Diprivan) 20 ml @ As Directed STK-MED ONCE IV ; Start 07/14/16 at 15: 26; Stop 07/14/16 at 15:27; Status DC Lidocaine HCl 100 mg STK-MED ONCE .ROUTE ; Start 07/14/16 at 15:26; Stop at 15:27; Status DC Fentanyl Citrate (Fentanyl 2ml Vial) 100 mcg STK-MED ONCE .ROUTE ; Start at 15:27; Stop 07/14/16 at 15:28; Status DC Rocuronium [place] (Zemuron) 50 mg STK-MED ONCE .ROUTE ; Start 07/14/16 at 15:27 ; Stop 07/14/16 at 15:28; Status DC Dexamethasone Sodium Phosphate (Decadron) 20 mg STK-MED ONCE .ROUTE ; Start at 16:34; Stop 07/14/16 at 16:35; Status DC Desflurane (Suprane) 30 ml STK-MED ONCE IH ; Start 07/14/16 at 16:35; Stop 07/14 at 16:36; Status DC Ondansetron HCl (Zofran) 4 mg STK-MED ONCE .ROUTE ; Start 07/14/16 at 16:46; Stop 07/14/16 at 16:47; Status DC Glycopyrrolate (Robinul) 1 mg STK-MED ONCE .ROUTE ; Start 07/14/16 at 16:46; Stop 07/14/16 at 16:47; Status DC Neostigmine Methylsulfate 5 mg STK-MED ONCE .ROUTE ; Start 07/14/16 at 16:46; Stop 07/14/16 at 16:47; Status DC Fentanyl Citrate (Fentanyl 2ml Vial) 100 mcg STK-MED ONCE .ROUTE ; Start at 16:57; Stop 07/14/16 at 16:58; Status DC Insulin Aspart 10 units 10 units 1X ONCE SQ Last administered on 07/15/16t 08: 26; Start 07/15/16 at 08:30; Stop 07/15/16 at 08:31; Status DC Cefazolin Sodium/ Dextrose (Ancef 2gm Premix) 50 ml @ 100 mls/hr 1X PREOP PRN IV PER PROTOCOL; Start 07/16/16 at 10:30; Stop 07/16/16 at 18:00 Active Scripts Active Phenergan (Promethazine HCl) 25 Mg Supp.rect 25 Mg RC Q8HRS PRN Zofran Odt (Ondansetron) 4 Mg Tab.rapdis 1 Tab SL Q8HRS PRN Vitals/I & O Vital Sign - Last 24 Hours 07/14/16 07/14/16 07/14/16 07/14/16 11:00 15:18 17:43 17:58 Temp 98.8 100.0 97.6 98.8 100.0 97.6 Pulse 102 96 107 104 Resp B/P 135/60 150/78 148/65 148/65 Pulse Ox 96 99 98 97 O2 Delivery Room Air Room Air Simple Mask Room Air O2 Flow Rate 10 07/14/16 07/14/16 07/14/16 07/14/16 18:03 18:13 18:15 18:26 Temp 97.3 98.1 97.3 98.1 Pulse 104 103 Resp B/P 104/90 140/72 Pulse Ox 92 95 O2 Delivery Room Air Nasal Cannula Room Air Nasal Cannula O2 Flow Rate 2 2.0 07/14/16 07/14/16 07/14/16 07/14/16 18:31 19:00 19:30 20:00 Temp 98.1 98.1 98.1 98.1 Pulse 100 93 90 Resp B/P 135/70 140/73 138/71 Pulse Ox 94 95 96 O2 Delivery Nasal Cannula Nasal Cannula Nasal Cannula Nasal Cannula O2 Flow Rate 2.0 2.0 07/14/16 07/14/16 07/14/16 07/14/16 20:00 20:30 21:00 22:00 Temp 97.9 97.9 Pulse 100 102 92 97 Resp B/P 147/82 152/77 144/75 129/67 Pulse Ox 95 92 94 96 O2 Delivery Nasal Cannula Nasal Cannula Nasal Cannula Nasal Cannula O2 Flow Rate 2.0 2.0 2.0 2.0 07/14/16 07/15/16 07/15/16 07/15/16 22:07 03:00 07:35 08:08 Pulse Ox 94 O2 Delivery Nasal Cannula Nasal Cannula Nasal Cannula Nasal Cannula O2 Flow Rate 2.0 2.0 2.0 2.0 07/15/16 09:10 Pulse Ox 94 O2 Delivery Nasal Cannula O2 Flow Rate 2.0 Intake and Output 07/14/16 07/14/16 07/15/16 15:00 23:00 07:00 Intake Total 50 ml 50 ml 770 ml Output Total 1800 ml 2150 ml Balance 50 ml -1750 ml -1380 ml CLIFFORD BURGOS MD Jul 15, 2016 10:46
[2016-07-15 11:00] VITALS: BP 123/65
--- NOTE | 2016-07-15 11:36 | PDOC2 ---
TANIA BOLES SPINDLE CARVER 07/15/16 1136: CONSULT Date of Consult Date of Consult DATE: 07/15/16 TIME: 11:30 Reason for Consult Reason for Consult: wound Referring Physician Referring Physician: Dr Strong Identification/Chief Complaint Chief Complaint left shoulder infection Source Source: Chart review, Patient History of Present Illness Reason for Visit: Admitted with left shoulder pain. Had been ongoing for 2 weeks. Did hit his shoulder on the door jam 2 weeks ago. Last night underwent a debridement of the left shoulder for abscess-- op notes shows an extensive wound, necrosis. Plans for wound debridement tomorrow at 1030, requested gen surg available due to extensiveness of wound Past Medical History Musculoskeletal: Osteoarthritis (bilateral knees - gets visco injections) Endocrine: Diabetes Past Surgical History Past Surgical History: Other (multiple knee surgeries) Family History Family History: Diabetes Social History No ALCOHOL: social Drugs: None Current Problem List Problem List Problems Medical Problems: (1) Acute renal injury Status: Acute (2) Dehydration Status: Acute (3) Hyponatremia Status: Acute (4) Nausea & vomiting Status: Acute (5) Uncontrolled diabetes mellitus Status: Acute Current Medications Current Medications Current Medications Sodium Chloride (Iv Sodium Chloride 0.9% 1000ml Bag) 1,000 ml @ 1,000 mls/hr Q1H IV Last administered on 07/09/16 19:34; Start 07/09/16 at 19:18; Stop at 20:17; Status DC Hydromorphone HCl (Dilaudid) 2 mg 1X ONCE IV ; Start 07/09/16 at 19:30; Stop at 19:30; Status DC Ondansetron HCl (Zofran) 4 mg 1X ONCE IV Last administered on 07/09/16 19:33 ; Start 07/09/16 at 19:30; Stop 07/09/16 at 19:31; Status DC Hydromorphone HCl (Dilaudid) 1 mg 1X ONCE IV Last administered on 07/09/16 19 :33; Start 07/09/16 at 19:30; Stop 07/09/16 at 19:31; Status DC Ondansetron HCl (Zofran) 4 mg PRN Q8HRS PRN IV NAUSEA/VOMITING; Start 07/09/16 at 20:30; Stop 07/09/16 at 21:00; Status DC Morphine Sulfate 4 mg 4 mg PRN Q2HR PRN IV PAIN Last administered on 07/10/16 06:36; Start 07/09/16 at 20:30; Stop 07/10/16 at 13:00; Status DC Sodium Chloride (Iv Sodium Chloride 0.9% 1000ml Bag) 1,000 ml @ 150 mls/hr Q6H40M IV Last administered on 07/09/16 20:41; Start 07/09/16 at 20:24; Stop 07/10/16 at 15:29; Status DC Acetaminophen (Tylenol) 650 mg PRN Q4HRS PRN PO FEVER; Start 07/09/16 at 20:30 ; Stop 07/09/16 at 21:00; Status DC Acetaminophen (Tylenol) 650 mg PRN Q6HRS PRN PO FEVER; Start 07/09/16 at 21:00 ; Stop 07/10/16 at 15:28; Status DC Ondansetron HCl 4 mg 4 mg PRN Q6HRS PRN IV NAUSEA/VOMITING; Start 07/09/16 at 21:00 Sodium Chloride (Iv Sodium Chloride 0.9% 1000ml Bag) 1,000 ml @ 150 mls/hr Q6H40M IV Last administered on 07/13/16 17:59; Start 07/09/16 at 21:00; Stop 07/13/16 at 19:27; Status DC Insulin Aspart (Novolog) 0-9 UNITS TIDWMEALS SQ Last administered on 07/14/16 21:05; Start 07/10/16 at 08:00 Dextrose 12.5 gm 12.5 gm PRN Q15MIN PRN IV SEE COMMENTS; Start 07/09/16 at 21: 00 Levofloxacin/ Dextrose (LEVAQUIN 500mg PREMIX) 100 ml @ 100 mls/hr Q24H IV Last administered on 07/12/16 02:49; Start 07/09/16 at 22:00; Stop 07/12/16 at 10:37; Status DC Guaifenesin (Mucinex) 600 mg BID PO Last administered on 07/15/16 08:07; Start 07/09/16 at 21:00 Albuterol Sulfate 2.5 mg 2.5 mg PRN Q4HRS PRN NEB SHORTNESS OF BREATH; Start at 21:00 Sodium Chloride (Iv Sodium Chloride 0.9% 1000ml Bag) 1,000 ml @ 0 mls/hr 1X ONCE IV Last administered on 07/10/16 10:27; Start 07/10/16 at 10:30; Stop at 10:31; Status DC Alprazolam (Xanax) 0.5 mg PRN Q8HRS PRN PO ANXIETY / AGITATION Last administered on 07/13/16 00:52; Start 07/10/16 at 13:00 Acetaminophen/ Hydrocodone Bitart (Lortab 5/325) 1 tab PRN Q6HRS PRN PO MODERATE - SEVERE PAIN Last administered on 07/15/16 08:08; Start 07/10/16 at 13:00 Acetaminophen (Tylenol) 650 mg PRN Q6HRS PRN PO MILD PAIN / TEMP Last administered on 07/14/16 00:08; Start 07/10/16 at 13:00 Heparin Sodium (Porcine) 5000 unit 5,000 unit Q8HRS SQ Last administered on 14:02; Start 07/10/16 at 14:00; Stop 07/11/16 at 22:55; Status DC Magnesium Sulfate/ Dextrose (Magnesium Sulfate PREMIX 2GM) 50 ml @ 25 mls/hr PRN DAILY PRN IV for Mag < 1.7 on am labs; Start 07/10/16 at 14:00 Diphenhydramine HCl (Benadryl) 25 mg PRN Q6HRS PRN IVP ITCHING Last administered on 07/13/16 01:52; Start 07/11/16 at 01:30 Lorazepam 2 mg 2 mg PRN Q4HRS PRN IV ANXIETY / AGITATION Last administered on 10:19; Start 07/11/16 at 01:30 Albumin Human (Albuminar) 100 ml @ 100 mls/hr TID IV Last administered on 07/13 13:56; Start 07/11/16 at 14:00; Stop 07/13/16 at 09:59; Status DC Insulin Aspart (Novolog) 10 units TIDAC SQ Last administered on 07/12/16 08:46 ; Start 07/11/16 at 12:30; Stop 07/12/16 at 09:17; Status DC Insulin Detemir 25 units 25 units QHS SQ Last administered on 07/12/16 01:48; Start 07/11/16 at 21:00; Stop 07/12/16 at 09:17; Status DC Heparin Sodium/ Dextrose 500 ml @ 0 mls/hr CONT PRN IV SEE I/O RECORD Last administered on 07/13/16 12:12; Start 07/11/16 at 23:00; Stop 07/13/16 at 12:32 ; Status DC Heparin Sodium (Porcine) 3,800 unit PRN Q6HRS PRN IV FOR UFH LEVEL LESS THAN 0.2 Last administered on 07/12/16 19:37; Start 07/11/16 at 23:00; Stop at 12:32; Status DC Heparin Sodium (Porcine) 1,900 unit PRN Q6HRS PRN IV FOR UFH LEVEL 0.2 - 0.29 Last administered on 07/13/16 02:33; Start 07/11/16 at 23:00; Stop 07/13/16 at 12:32; Status DC Warfarin Sodium (Coumadin Per Pharmacy) 1 each PRN DAILY PRN MC PER PROTOCOL Last administered on 07/14/16 12:35; Start 07/11/16 at 23:00 Warfarin Sodium (Coumadin) 5 mg 1X ONCE PO Last administered on 07/12/16 01: 45; Start 07/12/16 at 00:15; Stop 07/12/16 at 00:16; Status DC Info (Anti-Coagulation Monitoring By Pharmacy) 1 each PRN DAILY PRN MC SEE COMMENTS Last administered on 07/12/16 01:37; Start 07/11/16 at 23:45 Heparin Sodium (Porcine) 10,000 unit 1X ONCE IV Last administered on 01:48; Start 07/12/16 at 01:15; Stop 07/12/16 at 01:16; Status DC Insulin Aspart (Novolog) 12 units TIDAC SQ Last administered on 07/13/16 12:08 ; Start 07/12/16 at 11:30; Stop 07/13/16 at 12:32; Status DC Insulin Detemir (Levemir) 30 units QHS SQ Last administered on 07/12/16 21:07 ; Start 07/12/16 at 21:00; Stop 07/13/16 at 12:32; Status DC Tramadol HCl (Ultram) 50 mg PRN Q6HRS PRN PO PAIN; Start 07/12/16 at 10:15 Tramadol HCl (Ultram) 50 mg 1X ONCE PO Last administered on 07/12/16 14:32; Start 07/12/16 at 10:15; Stop 07/12/16 at 10:29; Status DC Methylprednisolone Acetate (Depo-Medrol 40mg Vial) 40 mg 1X ONCE IM ; Start at 10:30; Stop 07/12/16 at 10:31; Status DC Bupivacaine HCl (Sensorcaine-Mpf 0.25%) 10 ml 1X ONCE IJ ; Start 07/12/16 at 10 :30; Stop 07/12/16 at 10:31; Status DC Hydromorphone HCl 1 mg 1 mg 1X ONCE IV Last administered on 07/12/16 10:55; Start 07/12/16 at 10:30; Stop 07/12/16 at 10:46; Status DC Cefazolin Sodium 2 gm/Sodium Chloride 50 ml @ 100 mls/hr Q8HRS IV ; Start 07/12 at 11:00; Status Cancel Cefazolin Sodium/ Sodium Chloride (Ancef/Iv Sodium Chloride 0.9% 50ml) 50 ml @ 100 mls/hr Q8HRS IV Last administered on 07/15/16 04:57; Start 07/12/16 at 11: 00 Warfarin Sodium (Coumadin) 6 mg 1X WARF ONCE PO Last administered on 17:58; Start 07/12/16 at 16:00; Stop 07/12/16 at 16:01; Status DC Hydromorphone HCl (Dilaudid) 1 mg PRN Q4HRS PRN IVP PAIN Last administered on 22:25; Start 07/12/16 at 15:30 Polyethylene Glycol (miraLAX PACKET) 17 gm BID PO Last administered on 08:07; Start 07/12/16 at 21:00 Docusate Sodium (Colace) 100 mg PRN DAILY PRN PO CONSTIPATION; Start 07/12/16 at 15:30 Docusate Sodium (Colace) 100 mg DAILY PO Last administered on 07/15/16 08:07; Start 07/13/16 at 09:00 Magnesium Hydroxide (Milk Of Magnesia) 2,400 mg PRN DAILY PRN PO CONSTIPATION; Start 07/12/16 at 15:30 Gadobutrol (Gadavist) 7 mmol 1X ONCE IV Last administered on 07/13/16 10:45; Start 07/13/16 at 10:45; Stop 07/13/16 at 10:51; Status DC Gadobutrol (Gadavist) 7 mmol 1X ONCE IV Last administered on 07/13/16 10:45; Start 07/13/16 at 10:45; Stop 07/13/16 at 10:51; Status DC Warfarin Sodium (Coumadin) 10 mg 1X WARF ONCE PO Last administered on 17:56; Start 07/13/16 at 16:00; Stop 07/13/16 at 16:01; Status DC Enoxaparin Sodium (Lovenox Per Pharmacy Treatment Dosing) 1 each PRN DAILY PRN MC SEE COMMENTS; Start 07/13/16 at 12:30 Insulin Aspart (Novolog) 15 units TIDAC SQ Last administered on 07/15/16 08:15 ; Start 07/13/16 at 16:30 Insulin Detemir (Levemir) 40 units QHS SQ Last administered on 07/14/16 21:06 ; Start 07/13/16 at 21:00 Enoxaparin Sodium (Lovenox 150mg Syringe) 140 mg BID SQ Last administered on 08:07; Start 07/13/16 at 21:00 Warfarin Sodium (Coumadin) 15 mg 1X WARF ONCE PO ; Start 07/14/16 at 16:00; Stop 07/14/16 at 16:01; Status DC Ondansetron HCl (Zofran) 4 mg PRN Q6HRS PRN IV Nausea; Start 07/14/16 at 13:45 ; Stop 07/14/16 at 20:00; Status DC Fentanyl Citrate (Fentanyl 2ml Vial) 25 mcg PRN Q5MIN PRN IV MILD PAIN; Start 07/14/16 at 13:45; Stop 07/14/16 at 20:00; Status DC Fentanyl Citrate (Fentanyl 2ml Vial) 50 mcg PRN Q5MIN PRN IV MODERATE PAIN Last administered on 07/14/16t 18:15; Start 07/14/16 at 13:45; Stop 07/15/16 at 20:00 Morphine Sulfate 1 mg 1 mg PRN Q10MIN PRN IV SEVERE PAIN; Start 07/14/16 at 13: 45; Stop 07/14/16 at 20:00; Status DC Lactated Ringer's (Iv Lactated Ringers) 1,000 ml @ 30 mls/hr Q24H IV ; Start at 13:42; Stop 07/14/16 at 19:44; Status DC Lidocaine HCl 2 ml 1X PRN PRN ID IV START; Start 07/14/16 at 13:45; Stop at 20:00; Status DC Hydromorphone HCl (Dilaudid) 0.5 mg PRN Q10MIN PRN IV SEV PAIN,Second choice; Start 07/14/16 at 13:45; Stop 07/14/16 at 18:00; Status DC Prochlorperazine Edisylate (Compazine) 5 mg PACU PRN PRN IV NAUSEA Last administered on 07/14/16t 17:55; Start 07/14/16 at 13:45; Stop 07/14/16 at 20:00 ; Status DC Bupivacaine HCl/ Epinephrine Bitart 50 ml 50 ml STK-MED ONCE .ROUTE ; Start at 15:20; Stop 07/14/16 at 15:21; Status DC Propofol (Diprivan) 20 ml @ As Directed STK-MED ONCE IV ; Start 07/14/16 at 15: 26; Stop 07/14/16 at 15:27; Status DC Lidocaine HCl 100 mg STK-MED ONCE .ROUTE ; Start 07/14/16 at 15:26; Stop at 15:27; Status DC Fentanyl Citrate (Fentanyl 2ml Vial) 100 mcg STK-MED ONCE .ROUTE ; Start at 15:27; Stop 07/14/16 at 15:28; Status DC Rocuronium Quitaque (Zemuron) 50 mg STK-MED ONCE .ROUTE ; Start 07/14/16 at 15:27 ; Stop 07/14/16 at 15:28; Status DC Dexamethasone Sodium Phosphate (Decadron) 20 mg STK-MED ONCE .ROUTE ; Start at 16:34; Stop 07/14/16 at 16:35; Status DC Desflurane (Suprane) 30 ml STK-MED ONCE IH ; Start 07/14/16 at 16:35; Stop 07/14 at 16:36; Status DC Ondansetron HCl (Zofran) 4 mg STK-MED ONCE .ROUTE ; Start 07/14/16 at 16:46; Stop 07/14/16 at 16:47; Status DC Glycopyrrolate (Robinul) 1 mg STK-MED ONCE .ROUTE ; Start 07/14/16 at 16:46; Stop 07/14/16 at 16:47; Status DC Neostigmine Methylsulfate 5 mg STK-MED ONCE .ROUTE ; Start 07/14/16 at 16:46; Stop 07/14/16 at 16:47; Status DC Fentanyl Citrate (Fentanyl 2ml Vial) 100 mcg STK-MED ONCE .ROUTE ; Start at 16:57; Stop 07/14/16 at 16:58; Status DC Insulin Aspart 10 units 10 units 1X ONCE SQ Last administered on 07/15/16t 08: 26; Start 07/15/16 at 08:30; Stop 07/15/16 at 08:31; Status DC Cefazolin Sodium/ Dextrose (Ancef 2gm Premix) 50 ml @ 100 mls/hr 1X PREOP PRN IV PER PROTOCOL; Start 07/16/16 at 10:30; Stop 07/16/16 at 18:00 Active Scripts Active Phenergan (Promethazine HCl) 25 Mg Supp.rect 25 Mg RC Q8HRS PRN Zofran Odt (Ondansetron) 4 Mg Tab.rapdis 1 Tab SL Q8HRS PRN Allergies Allergies: Coded Allergies: No Known Drug Allergies (Unverified , 07/02/16) ROS General: YES: Fatigue, Malaise PSYCHOLOGICAL ROS: YES: Anxiety, No: Depression Eyes: No Blurry vision, No Double vision HEENT: No: Heacaches, Sore Throat Hematological and Lymphatic: YES: Blood Clots, No: Bleeding Problems Respiratory: YES: Shortness of breath, No: Cough Cardiovascular: No Chest Pain, No Palpitations Gastrointestinal: No Nausea, No Vomiting Genitourinary: No Dysuria, No Hematuria Musculoskeletal: Yes Joint Pain, Yes Joint Swelling Neurological: No Confusion, No Numbness/Tingling Skin: Yes Other (see hpi) Physical Exam General: Alert, Oriented X3, Cooperative, No acute distress HEENT: PERRLA, Mucous membr. moist/pink Lungs: Clear to auscultation, Normal air movement Heart: Regular rate, Normal S1, Normal S2, No murmurs Abdomen: Soft, No tenderness Extremities: Other (left shoulder, wound vac in place) Psych/Mental Status: Mental status NL, Mood NL Vitals VITALS Vital Signs Date Time Temp Pulse Resp B/P Pulse Ox O2 Delivery O2 Flow Rate FiO2 07/15/16 09:10 94 Nasal Cannula 2.0 07/14/16 22:00 97.9 97 20 129/67 97.9 Labs Labs Laboratory Tests Test 07/13/16 11:59 07/13/16 17:11 07/13/16 19:30 07/13/16 20:27 Glucose (Fingerstick) 326mg/dL (70-99) 235mg/dL (70-99) 242mg/dL (70-99) Heparin Anti-Xa Act, Unfractionated < 0.10IU/mL (0.30-0.70) Test 07/14/16 06:05 07/14/16 08:33 07/14/16 10:27 07/14/16 15:23 White Blood Count 9.7x10^3/uL (4.0-11.0) Red Blood Count 3.72x10^6/uL (4.30-5.70) Hemoglobin 10.3g/dL (13.0-17.5) Hematocrit 31.9% (39.0-53.0) Mean Corpuscular Volume 86fL (79-100) Mean Corpuscular Hemoglobin 28pg (25-35) Mean Corpuscular Hemoglobin Concent 32g/dL (31-37) Red Cell Distribution Width 15.7% (11.5-14.5) Platelet Count 372x10^3/uL (140-400) Neutrophils (%) (Auto) 76% (31-73) Lymphocytes (%) (Auto) 18% (24-48) Monocytes (%) (Auto) 4% (0-9) Eosinophils (%) (Auto) 1% (0-3) Basophils (%) (Auto) 0% (0-3) Neutrophils # (Auto) 7.4x10^3uL (1.8-7.7) Lymphocytes # (Auto) 1.7x10^3/uL (1.0-4.8) Monocytes # (Auto) 0.4x10^3/uL (0.0-1.1) Eosinophils # (Auto) 0.1x10^3/uL (0.0-0.7) Basophils # (Auto) 0.0x10^3/uL (0.0-0.2) Prothrombin Time 17.7SEC (11.7-14.0) Prothromb Time International Ratio 1.6 (0.8-1.1) Sodium Level 136mmol/L (136-145) Potassium Level 3.8mmol/L (3.5-5.1) Chloride Level 103mmol/L (98-107) Carbon Dioxide Level 26mmol/L (21-32) Anion Gap 7 (6-14) Blood Urea Nitrogen 18mg/dL (8-26) Creatinine 0.9mg/dL (0.7-1.3) Estimated GFR (Cockcroft-Gault) 87.6 Glucose Level 206mg/dL (70-99) Calcium Level 7.9mg/dL (8.5-10.1) Phosphorus Level 3.0mg/dL (2.6-4.7) Magnesium Level 2.1mg/dL (1.8-2.4) Creatine Kinase 13U/L (39-308) Albumin 1.8g/dL (3.4-5.0) Glucose (Fingerstick) 189mg/dL (70-99) 240mg/dL (70-99) 232mg/dL (70-99) Test 07/14/16 17:57 07/14/16 18:47 07/14/16 20:19 07/15/16 04:46 Glucose (Fingerstick) 252mg/dL (70-99) 225mg/dL (70-99) 310mg/dL (70-99) White Blood Count 8.6x10^3/uL (4.0-11.0) Red Blood Count 4.23x10^6/uL (4.30-5.70) Hemoglobin 11.5g/dL (13.0-17.5) Hematocrit 35.3% (39.0-53.0) Mean Corpuscular Volume 84fL (79-100) Mean Corpuscular Hemoglobin 27pg (25-35) Mean Corpuscular Hemoglobin Concent 33g/dL (31-37) Red Cell Distribution Width 15.9% (11.5-14.5) Platelet Count 429x10^3/uL (140-400) Prothrombin Time 17.3SEC (11.7-14.0) Prothromb Time International Ratio 1.5 (0.8-1.1) Sodium Level 137mmol/L (136-145) Potassium Level 5.6mmol/L (3.5-5.1) Chloride Level 104mmol/L (98-107) Carbon Dioxide Level 27mmol/L (21-32) Anion Gap 6 (6-14) Blood Urea Nitrogen 21mg/dL (8-26) Creatinine 0.8mg/dL (0.7-1.3) Estimated GFR (Cockcroft-Gault) 100.4 Glucose Level 367mg/dL (70-99) Calcium Level 8.3mg/dL (8.5-10.1) Phosphorus Level 3.9mg/dL (2.6-4.7) Magnesium Level 2.1mg/dL (1.8-2.4) Creatine Kinase 29U/L (39-308) Albumin 1.7g/dL (3.4-5.0) Test 07/15/16 08:00 07/15/16 11:00 Glucose (Fingerstick) 394mg/dL (70-99) 408mg/dL (70-99) Laboratory Tests Test 07/14/16 15:23 07/14/16 17:57 07/14/16 18:47 07/14/16 20:19 Glucose (Fingerstick) 232mg/dL (70-99) 252mg/dL (70-99) 225mg/dL (70-99) 310mg/dL (70-99) Test 07/15/16 04:46 07/15/16 08:00 07/15/16 11:00 White Blood Count 8.6x10^3/uL (4.0-11.0) Red Blood Count 4.23x10^6/uL (4.30-5.70) Hemoglobin 11.5g/dL (13.0-17.5) Hematocrit 35.3% (39.0-53.0) Mean Corpuscular Volume 84fL (79-100) Mean Corpuscular Hemoglobin 27pg (25-35) Mean Corpuscular Hemoglobin Concent 33g/dL (31-37) Red Cell Distribution Width 15.9% (11.5-14.5) Platelet Count 429x10^3/uL (140-400) Prothrombin Time 17.3SEC (11.7-14.0) Prothromb Time International Ratio 1.5 (0.8-1.1) Sodium Level 137mmol/L (136-145) Potassium Level 5.6mmol/L (3.5-5.1) Chloride Level 104mmol/L (98-107) Carbon Dioxide Level 27mmol/L (21-32) Anion Gap 6 (6-14) Blood Urea Nitrogen 21mg/dL (8-26) Creatinine 0.8mg/dL (0.7-1.3) Estimated GFR (Cockcroft-Gault) 100.4 Glucose Level 367mg/dL (70-99) Calcium Level 8.3mg/dL (8.5-10.1) Phosphorus Level 3.9mg/dL (2.6-4.7) Magnesium Level 2.1mg/dL (1.8-2.4) Creatine Kinase 29U/L (39-308) Albumin 1.7g/dL (3.4-5.0) Glucose (Fingerstick) 394mg/dL (70-99) 408mg/dL (70-99) Assessment/Plan Assessment/Plan left shoulder abscess, necrosis dr thomas will be available tomorrow to assist GOPI THOMAS MD 07/15/16 1742: CONSULT Allergies Allergies: Coded Allergies: No Known Drug Allergies (Unverified , 07/02/16) Assessment/Plan Assessment/Plan d/w Dr. Wallace will be available TANIA BOLES APRN Jul 15, 2016 11:36 GOPI THOMAS MD Jul 15, 2016 17:42
--- NOTE | 2016-07-15 12:12 | PDOC ---
Infectious Disease Note Subjective Subjective Better. Weakness improving and better ROM Less pressure in shoulder ROS ROS GEN: Denies fevers, chills, sweats HEENT: Denies blurred vision, sore throat CV: Denies chest pain RESP: Denies shortness of air, cough GI: Denies n/v/d NEURO: Denies confusion, dizziness Urinating well Vital Sign Vital Signs Vital Signs Date Time Temp Pulse Resp B/P Pulse Ox O2 Delivery O2 Flow Rate FiO2 07/15/16 11:00 97.5 87 18 123/65 99 Nasal Cannula 2.0 97.5 Physical Exam PHYSICAL EXAM GENERAL: NAD, Alert, in chair HEENT: PERRL, OC/OP- clear NECK: Supple, no JVD, no LN LUNGS: Clear HEART: S1S2, no gallop, no murmur ABD: Soft, NT, no organomegaly, no rebound, obese EXT: No edema, no cyanosis. Shoulder dressed PUBLIC ADDRESS ANNOUNCER: Alert, oriented x 3, no focal neurologic deficit SKIN: No rash IV: ok Labs Lab Laboratory Tests Test 07/14/16 15:23 07/14/16 17:57 07/14/16 18:47 07/14/16 20:19 Glucose (Fingerstick) 232mg/dL (70-99) 252mg/dL (70-99) 225mg/dL (70-99) 310mg/dL (70-99) Test 07/15/16 04:46 07/15/16 08:00 07/15/16 11:00 White Blood Count 8.6x10^3/uL (4.0-11.0) Red Blood Count 4.23x10^6/uL (4.30-5.70) Hemoglobin 11.5g/dL (13.0-17.5) Hematocrit 35.3% (39.0-53.0) Mean Corpuscular Volume 84fL (79-100) Mean Corpuscular Hemoglobin 27pg (25-35) Mean Corpuscular Hemoglobin Concent 33g/dL (31-37) Red Cell Distribution Width 15.9% (11.5-14.5) Platelet Count 429x10^3/uL (140-400) Prothrombin Time 17.3SEC (11.7-14.0) Prothromb Time International Ratio 1.5 (0.8-1.1) Sodium Level 137mmol/L (136-145) Potassium Level 5.6mmol/L (3.5-5.1) Chloride Level 104mmol/L (98-107) Carbon Dioxide Level 27mmol/L (21-32) Anion Gap 6 (6-14) Blood Urea Nitrogen 21mg/dL (8-26) Creatinine 0.8mg/dL (0.7-1.3) Estimated GFR (Cockcroft-Gault) 100.4 Glucose Level 367mg/dL (70-99) Calcium Level 8.3mg/dL (8.5-10.1) Phosphorus Level 3.9mg/dL (2.6-4.7) Magnesium Level 2.1mg/dL (1.8-2.4) Creatine Kinase 29U/L (39-308) Albumin 1.7g/dL (3.4-5.0) Glucose (Fingerstick) 394mg/dL (70-99) 408mg/dL (70-99) Objective Assessment Fever Staph sepsis - 07/11. ECHO reviewed Staph aureus in urine Shoulder pain and warmth ? Septic emboli in UE Leukocytosis - better DM Obesity Pulm nodule ? Incidental mass in abd Plan Plan of Care Cont Cefazolin Await General surg procedure F/u Repeat blood cults this am needs tighter glucose control D/w MELA JAIMES MD Jul 15, 2016 12:12
[2016-07-15 15:00] VITALS: BP 131/62
[2016-07-15 19:00] VITALS: BP 131/54
[2016-07-15] MEDS: INSULIN DETEMIR 300 UNITS/3 ML INSULN.PEN. SQ SCH (21:00)
--- NOTE | 2016-07-15 21:08 | PDOC ---
PROGRESS NOTES Subjective Subjective Problems overnight:no acute issues. pain improved since surgery. The patient appears very distressed, distraught, depressed, and tearful over his current condition. Objective Vital Signs Vital Signs Date Time Temp Pulse Resp B/P Pulse Ox O2 Delivery O2 Flow Rate FiO2 07/15/16 19:00 98.2 85 16 131/54 98 Room Air 98.2 07/15/16 15:15 2.0 Physical Exam gen: depressed, tearful. LUE: wound vac in place to suction. 50 cc dark output. neurovascularly intact. decreased swelling at the hand and forearm. mild tenderness to palpation over the midline of his upper trapezius/ cspine area. decreased erythema over the left shoulder region. no pain with small arc range of motion of the left shoulder. Labs Laboratory Tests Test 07/14/16 06:05 07/14/16 08:33 07/14/16 10:27 07/14/16 15:23 White Blood Count 9.7x10^3/uL (4.0-11.0) Red Blood Count 3.72x10^6/uL (4.30-5.70) Hemoglobin 10.3g/dL (13.0-17.5) Hematocrit 31.9% (39.0-53.0) Mean Corpuscular Volume 86fL (79-100) Mean Corpuscular Hemoglobin 28pg (25-35) Mean Corpuscular Hemoglobin Concent 32g/dL (31-37) Red Cell Distribution Width 15.7% (11.5-14.5) Platelet Count 372x10^3/uL (140-400) Neutrophils (%) (Auto) 76% (31-73) Lymphocytes (%) (Auto) 18% (24-48) Monocytes (%) (Auto) 4% (0-9) Eosinophils (%) (Auto) 1% (0-3) Basophils (%) (Auto) 0% (0-3) Neutrophils # (Auto) 7.4x10^3uL (1.8-7.7) Lymphocytes # (Auto) 1.7x10^3/uL (1.0-4.8) Monocytes # (Auto) 0.4x10^3/uL (0.0-1.1) Eosinophils # (Auto) 0.1x10^3/uL (0.0-0.7) Basophils # (Auto) 0.0x10^3/uL (0.0-0.2) Prothrombin Time 17.7SEC (11.7-14.0) Prothromb Time International Ratio 1.6 (0.8-1.1) Sodium Level 136mmol/L (136-145) Potassium Level 3.8mmol/L (3.5-5.1) Chloride Level 103mmol/L (98-107) Carbon Dioxide Level 26mmol/L (21-32) Anion Gap 7 (6-14) Blood Urea Nitrogen 18mg/dL (8-26) Creatinine 0.9mg/dL (0.7-1.3) Estimated GFR (Cockcroft-Gault) 87.6 Glucose Level 206mg/dL (70-99) Calcium Level 7.9mg/dL (8.5-10.1) Phosphorus Level 3.0mg/dL (2.6-4.7) Magnesium Level 2.1mg/dL (1.8-2.4) Creatine Kinase 13U/L (39-308) Albumin 1.8g/dL (3.4-5.0) Glucose (Fingerstick) 189mg/dL (70-99) 240mg/dL (70-99) 232mg/dL (70-99) Test 07/14/16 17:57 07/14/16 18:47 07/14/16 20:19 07/15/16 04:46 Glucose (Fingerstick) 252mg/dL (70-99) 225mg/dL (70-99) 310mg/dL (70-99) White Blood Count 8.6x10^3/uL (4.0-11.0) Red Blood Count 4.23x10^6/uL (4.30-5.70) Hemoglobin 11.5g/dL (13.0-17.5) Hematocrit 35.3% (39.0-53.0) Mean Corpuscular Volume 84fL (79-100) Mean Corpuscular Hemoglobin 27pg (25-35) Mean Corpuscular Hemoglobin Concent 33g/dL (31-37) Red Cell Distribution Width 15.9% (11.5-14.5) Platelet Count 429x10^3/uL (140-400) Prothrombin Time 17.3SEC (11.7-14.0) Prothromb Time International Ratio 1.5 (0.8-1.1) Sodium Level 137mmol/L (136-145) Potassium Level 5.6mmol/L (3.5-5.1) Chloride Level 104mmol/L (98-107) Carbon Dioxide Level 27mmol/L (21-32) Anion Gap 6 (6-14) Blood Urea Nitrogen 21mg/dL (8-26) Creatinine 0.8mg/dL (0.7-1.3) Estimated GFR (Cockcroft-Gault) 100.4 Glucose Level 367mg/dL (70-99) Calcium Level 8.3mg/dL (8.5-10.1) Phosphorus Level 3.9mg/dL (2.6-4.7) Magnesium Level 2.1mg/dL (1.8-2.4) Creatine Kinase 29U/L (39-308) Albumin 1.7g/dL (3.4-5.0) Test 07/15/16 08:00 07/15/16 11:00 07/15/16 15:20 07/15/16 16:29 Glucose (Fingerstick) 394mg/dL (70-99) 408mg/dL (70-99) 312mg/dL (70-99) 271mg/dL (70-99) Test 07/15/16 20:07 Glucose (Fingerstick) 296mg/dL (70-99) Laboratory Tests Test 07/15/16 04:46 07/15/16 08:00 07/15/16 11:00 07/15/16 15:20 White Blood Count 8.6x10^3/uL (4.0-11.0) Red Blood Count 4.23x10^6/uL (4.30-5.70) Hemoglobin 11.5g/dL (13.0-17.5) Hematocrit 35.3% (39.0-53.0) Mean Corpuscular Volume 84fL (79-100) Mean Corpuscular Hemoglobin 27pg (25-35) Mean Corpuscular Hemoglobin Concent 33g/dL (31-37) Red Cell Distribution Width 15.9% (11.5-14.5) Platelet Count 429x10^3/uL (140-400) Prothrombin Time 17.3SEC (11.7-14.0) Prothromb Time International Ratio 1.5 (0.8-1.1) Sodium Level 137mmol/L (136-145) Potassium Level 5.6mmol/L (3.5-5.1) Chloride Level 104mmol/L (98-107) Carbon Dioxide Level 27mmol/L (21-32) Anion Gap 6 (6-14) Blood Urea Nitrogen 21mg/dL (8-26) Creatinine 0.8mg/dL (0.7-1.3) Estimated GFR (Cockcroft-Gault) 100.4 Glucose Level 367mg/dL (70-99) Calcium Level 8.3mg/dL (8.5-10.1) Phosphorus Level 3.9mg/dL (2.6-4.7) Magnesium Level 2.1mg/dL (1.8-2.4) Creatine Kinase 29U/L (39-308) Albumin 1.7g/dL (3.4-5.0) Glucose (Fingerstick) 394mg/dL (70-99) 408mg/dL (70-99) 312mg/dL (70-99) Test 07/15/16 16:29 07/15/16 20:07 Glucose (Fingerstick) 271mg/dL (70-99) 296mg/dL (70-99) Imaging none Assessment Assessment POD# 1, S/P I&D left septic acromioclavicular joint Problems: Plan Plan of Care The patient is feeling better, wound vac in place. I discussed the case with ID and general surgery. Plan for OR again in the am to redebride the area and replace wound vac. Depending on the findings I would expect to take the patient back to the OR every few days for the next week or so and hopefully discontinue the wound vac and close the area primarily after it is clean for long enough. MONALISA PINTO MD Jul 15, 2016 21:08
[2016-07-15] MEDS: ONDANSETRON PF 4 MG/2 ML VIAL. IV PRN (22:34)
[2016-07-15 23:00] VITALS: BP_SYST 131; BP_DIAS 54; BP_DIAS 85
[2016-07-16 03:00] VITALS: BP 128/86
[2016-07-16 05:35] LABS: BASO % 0 % (0-3); EOS % 1 % (0-3); HEMATOCRIT 30.6 % (39.0-53.0); HEMOGLOBIN 9.8 g/dL (13.0-17.5); LYMPH # 2.6 x10^3/uL (1.0-4.8); LYMPH % 31 % (24-48); MEAN CORPUSCULAR HEMOGLOBIN 28 pg (25-35); MEAN CORPUSCULAR HGB CONC 32 g/dL (31-37); MEAN CORPUSCULAR VOLUME 86 fL (79-100); MONO % 5 % (0-9); NEUT % 63 % (31-73); PLATELET COUNT 422 x10^3/uL (140-400); RED BLOOD COUNT 3.56 x10^6/uL (4.30-5.70); RED CELL DISTRIBUTION WIDTH 16.2 % (11.5-14.5); WHITE BLOOD COUNT 8.5 x10^3/uL (4.0-11.0)
[2016-07-16 05:46] LABS: INR 1.4 (0.8-1.1); PROTHROMBIN TIME PATIENT 16.5 SEC (11.7-14.0)
[2016-07-16 05:53] LABS: ALBUMIN 1.7 g/dL (3.4-5.0); CALCIUM 8.4 mg/dL (8.5-10.1); CREATININE 0.8 mg/dL (0.7-1.3); GFR 100.4; PHOSPHORUS 3.7 mg/dL (2.6-4.7); POTASSIUM 4.1 mmol/L (3.5-5.1)
[2016-07-16] MEDS: HYDROCODONE/APAP 5/325MG TABLET. PO PRN ×2 (05:56→20:56)
[2016-07-16] MEDS: NORMAL SALINE IV SCH ×3 (06:00→20:56)
[2016-07-16] MEDS: CEFAZOLIN SODIUM IV SCH ×3 (06:00→20:56)
[2016-07-16 07:00] VITALS: BP 129/69
[2016-07-16] MEDS: INSULIN ASPART 300 UNITS/3 ML INSULN.PEN SQ SCH ×6 (07:30→17:00)
[2016-07-16] MEDS: ENOXAPARIN ** NOTE DOSE ** SYRINGE SQ SCH ×2 (09:00→20:56)
[2016-07-16] MEDS: GUAIFENESIN ER 600 MG TABLET.ER PO SCH ×2 (09:00→20:56)
[2016-07-16] MEDS: DOCUSATE SODIUM 100 MG CAPSULE PO SCH (09:00)
[2016-07-16] MEDS: POLYETHYLENE GLYCOL 3350 17 GM PACKET. PO SCH ×2 (09:00→20:56)
[2016-07-16] MEDS ORDERED: ROCURONIUM 50 MG/5 ML VIAL. ONE (09:56)
[2016-07-16] MEDS ORDERED: PROPOFOL 20 ML IV ONE (09:58)
[2016-07-16] MEDS ORDERED: FAMOTIDINE 20 MG/2 ML VIAL ONE (09:58)
[2016-07-16] MEDS ORDERED: MIDAZOLAM HCL 2 MG/2 ML VIAL. ONE (09:58)
[2016-07-16] MEDS ORDERED: LIDOCAINE 2% 100 MG/5 ML DISP.SYRIN. ONE (09:58)
[2016-07-16] MEDS ORDERED: FENTANYL PF 250 MCG/5 ML VIAL. ONE (09:58)
[2016-07-16] MEDS ORDERED: ONDANSETRON PF 4 MG/2 ML VIAL. ONE (09:58)
[2016-07-16] MEDS ORDERED: DEXAMETHASONE SOD PHOS 20 MG/5 ML VIAL. ONE (09:58)
[2016-07-16] MEDS ORDERED: SUCCINYLCHOLINE 200 MG/10 ML VIAL. ONE ×2 (10:10→10:26)
[2016-07-16] MEDS ORDERED: CEFAZOLIN 2GM PREMIX 50 ML IV PRN (10:30)
[2016-07-16] MEDS ORDERED: ACETAMINOPHEN INTRAVENOUS 100 ML IV ONE (11:49)
[2016-07-16] MEDS ORDERED: GLYCOPYRROLATE 1 MG/5 ML VIAL. ONE (11:55)
[2016-07-16] MEDS ORDERED: NEOSTIGMINE METHYLSULFATE 5 MG/5 ML SYRINGE. ONE (11:55)
--- NOTE | 2016-07-16 12:22 | PDOC ---
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 minimal reactive bleeding, skin less edematous Complications none Additional Remarks Plan to return to the OR tuesday for another wound vac exchange versus closure with packing. continue abx per ID wound is looking good. cautiously optimistic. MONALISA PINTO MD Jul 16, 2016 12:22
[2016-07-16] MEDS ORDERED: IV RINGERS,LACTATED 1000ML 1,000 ML IV SCH (12:28)
[2016-07-16] MEDS ORDERED: PROCHLORPERAZINE 10 MG/2 ML VIAL. IV PRN (12:30)
[2016-07-16] MEDS ORDERED: MORPHINE SULFATE 2 MG/ML DISP.SYRIN. IV PRN (12:30)
[2016-07-16] MEDS ORDERED: ONDANSETRON PF 4 MG/2 ML VIAL. IV PRN (12:30)
[2016-07-16] MEDS ORDERED: FENTANYL PF 100 MCG/2 ML VIAL. IV PRN ×2 (12:30)
[2016-07-16] MEDS ORDERED: HYDROMORPHONE 2 MG/ML VIAL. IV PRN (12:30)
[2016-07-16] MEDS ORDERED: LIDOCAINE 1% 1 ML SYRINGE. ID PRN (12:30)
[2016-07-16] MEDS: ANTI-COAG MONITOR BY PHARMACY. MC PRN (14:36)
[2016-07-16 15:00] VITALS: BP 112/56
[2016-07-16] MEDS ORDERED: WARFARIN 10 MG TABLET. PO ONE (16:00)
--- NOTE | 2016-07-16 17:57 | PDOC ---
PROGRESS NOTES Subjective Subjective He continues with left shoulder pain and stiffness. Objective Objective Vital Signs Date Time Temp Pulse Resp B/P Pulse Ox O2 Delivery O2 Flow Rate FiO2 07/16/16 15:21 22 97 Room Air 2.0 07/16/16 15:00 97.5 82 112/56 97.5 Intake and Output 07/16/16 07:00 Intake Total 1150 ml Output Total 1100 ml Balance 50 ml Intake Oral 1100 ml IV Total 50 ml Output Urine Total 1100 ml # Voids 1 Physical Exam Physical Exam He is supine in bed and continues with prtecting left shoulder with tenderness to palpation and he had another incision and no purulent drainage was obtained at left AC joint. Assessment Assessment Problems Medical Problems: (1) Acute renal injury Status: Acute (2) Dehydration Status: Acute (3) Hyponatremia Status: Acute (4) Nausea & vomiting Status: Acute (5) Uncontrolled diabetes mellitus Status: Acute Plan Plan of Care To continue present physical and occupational therapy follow up as tolerated. Comment Review of Relevant I have reviewed the following items madison (where applicable) has been applied. Labs Laboratory Tests Test 07/14/16 17:57 07/14/16 18:47 07/14/16 20:19 07/15/16 04:46 Glucose (Fingerstick) 252mg/dL (70-99) 225mg/dL (70-99) 310mg/dL (70-99) White Blood Count 8.6x10^3/uL (4.0-11.0) Red Blood Count 4.23x10^6/uL (4.30-5.70) Hemoglobin 11.5g/dL (13.0-17.5) Hematocrit 35.3% (39.0-53.0) Mean Corpuscular Volume 84fL (79-100) Mean Corpuscular Hemoglobin 27pg (25-35) Mean Corpuscular Hemoglobin Concent 33g/dL (31-37) Red Cell Distribution Width 15.9% (11.5-14.5) Platelet Count 429x10^3/uL (140-400) Prothrombin Time 17.3SEC (11.7-14.0) Prothromb Time International Ratio 1.5 (0.8-1.1) Sodium Level 137mmol/L (136-145) Potassium Level 5.6mmol/L (3.5-5.1) Chloride Level 104mmol/L (98-107) Carbon Dioxide Level 27mmol/L (21-32) Anion Gap 6 (6-14) Blood Urea Nitrogen 21mg/dL (8-26) Creatinine 0.8mg/dL (0.7-1.3) Estimated GFR (Cockcroft-Gault) 100.4 Glucose Level 367mg/dL (70-99) Calcium Level 8.3mg/dL (8.5-10.1) Phosphorus Level 3.9mg/dL (2.6-4.7) Magnesium Level 2.1mg/dL (1.8-2.4) Creatine Kinase 29U/L (39-308) Albumin 1.7g/dL (3.4-5.0) Test 07/15/16 08:00 07/15/16 11:00 07/15/16 15:20 07/15/16 16:29 Glucose (Fingerstick) 394mg/dL (70-99) 408mg/dL (70-99) 312mg/dL (70-99) 271mg/dL (70-99) Test 07/15/16 20:07 07/16/16 05:10 07/16/16 07:37 07/16/16 14:17 Glucose (Fingerstick) 296mg/dL (70-99) 151mg/dL (70-99) 132mg/dL (70-99) White Blood Count 8.5x10^3/uL (4.0-11.0) Red Blood Count 3.56x10^6/uL (4.30-5.70) Hemoglobin 9.8g/dL (13.0-17.5) Hematocrit 30.6% (39.0-53.0) Mean Corpuscular Volume 86fL (79-100) Mean Corpuscular Hemoglobin 28pg (25-35) Mean Corpuscular Hemoglobin Concent 32g/dL (31-37) Red Cell Distribution Width 16.2% (11.5-14.5) Platelet Count 422x10^3/uL (140-400) Neutrophils (%) (Auto) 63% (31-73) Lymphocytes (%) (Auto) 31% (24-48) Monocytes (%) (Auto) 5% (0-9) Eosinophils (%) (Auto) 1% (0-3) Basophils (%) (Auto) 0% (0-3) Neutrophils # (Auto) 5.4x10^3uL (1.8-7.7) Lymphocytes # (Auto) 2.6x10^3/uL (1.0-4.8) Monocytes # (Auto) 0.4x10^3/uL (0.0-1.1) Eosinophils # (Auto) 0.1x10^3/uL (0.0-0.7) Basophils # (Auto) 0.0x10^3/uL (0.0-0.2) Prothrombin Time 16.5SEC (11.7-14.0) Prothromb Time International Ratio 1.4 (0.8-1.1) Sodium Level 140mmol/L (136-145) Potassium Level 4.1mmol/L (3.5-5.1) Chloride Level 106mmol/L (98-107) Carbon Dioxide Level 28mmol/L (21-32) Anion Gap 6 (6-14) Blood Urea Nitrogen 23mg/dL (8-26) Creatinine 0.8mg/dL (0.7-1.3) Estimated GFR (Cockcroft-Gault) 100.4 Glucose Level 187mg/dL (70-99) Calcium Level 8.4mg/dL (8.5-10.1) Phosphorus Level 3.7mg/dL (2.6-4.7) Creatine Kinase 33U/L (39-308) Albumin 1.7g/dL (3.4-5.0) Test 07/16/16 16:55 Glucose (Fingerstick) 199mg/dL (70-99) Laboratory Tests Test 07/15/16 20:07 07/16/16 05:10 07/16/16 07:37 07/16/16 14:17 Glucose (Fingerstick) 296mg/dL (70-99) 151mg/dL (70-99) 132mg/dL (70-99) White Blood Count 8.5x10^3/uL (4.0-11.0) Red Blood Count 3.56x10^6/uL (4.30-5.70) Hemoglobin 9.8g/dL (13.0-17.5) Hematocrit 30.6% (39.0-53.0) Mean Corpuscular Volume 86fL (79-100) Mean Corpuscular Hemoglobin 28pg (25-35) Mean Corpuscular Hemoglobin Concent 32g/dL (31-37) Red Cell Distribution Width 16.2% (11.5-14.5) Platelet Count 422x10^3/uL (140-400) Neutrophils (%) (Auto) 63% (31-73) Lymphocytes (%) (Auto) 31% (24-48) Monocytes (%) (Auto) 5% (0-9) Eosinophils (%) (Auto) 1% (0-3) Basophils (%) (Auto) 0% (0-3) Neutrophils # (Auto) 5.4x10^3uL (1.8-7.7) Lymphocytes # (Auto) 2.6x10^3/uL (1.0-4.8) Monocytes # (Auto) 0.4x10^3/uL (0.0-1.1) Eosinophils # (Auto) 0.1x10^3/uL (0.0-0.7) Basophils # (Auto) 0.0x10^3/uL (0.0-0.2) Prothrombin Time 16.5SEC (11.7-14.0) Prothromb Time International Ratio 1.4 (0.8-1.1) Sodium Level 140mmol/L (136-145) Potassium Level 4.1mmol/L (3.5-5.1) Chloride Level 106mmol/L (98-107) Carbon Dioxide Level 28mmol/L (21-32) Anion Gap 6 (6-14) Blood Urea Nitrogen 23mg/dL (8-26) Creatinine 0.8mg/dL (0.7-1.3) Estimated GFR (Cockcroft-Gault) 100.4 Glucose Level 187mg/dL (70-99) Calcium Level 8.4mg/dL (8.5-10.1) Phosphorus Level 3.7mg/dL (2.6-4.7) Creatine Kinase 33U/L (39-308) Albumin 1.7g/dL (3.4-5.0) Test 07/16/16 16:55 Glucose (Fingerstick) 199mg/dL (70-99) Microbiology 07/14/16 Blood Culture - Final, Complete 2/17/17 Urine Culture - Final, Complete 07/09/16 Urine Culture Result 1 (EMILI) - Final, Complete 07/09/16 Antimicrobic Susceptibility - Final, Complete 07/14/16 Anaerobic/Aerobic Culture, Resulted Pending 07/14/16 Anaerobic Culture Result 1 (EMILI), Resulted Pending 07/14/16 Aerobic Culture - Preliminary, Resulted 07/14/16 Aerobic Culture Result 1 (EMILI) - Preliminary, Resulted Medications Current Medications Sodium Chloride (Iv Sodium Chloride 0.9% 1000ml Bag) 1,000 ml @ 1,000 mls/hr Q1H IV Last administered on 07/09/16 19:34; Start 07/09/16 at 19:18; Stop at 20:17; Status DC Hydromorphone HCl (Dilaudid) 2 mg 1X ONCE IV ; Start 07/09/16 at 19:30; Stop at 19:30; Status DC Ondansetron HCl (Zofran) 4 mg 1X ONCE IV Last administered on 07/09/16 19:33 ; Start 07/09/16 at 19:30; Stop 07/09/16 at 19:31; Status DC Hydromorphone HCl (Dilaudid) 1 mg 1X ONCE IV Last administered on 07/09/16 19 :33; Start 07/09/16 at 19:30; Stop 07/09/16 at 19:31; Status DC Ondansetron HCl (Zofran) 4 mg PRN Q8HRS PRN IV NAUSEA/VOMITING; Start 07/09/16 at 20:30; Stop 07/09/16 at 21:00; Status DC Morphine Sulfate 4 mg 4 mg PRN Q2HR PRN IV PAIN Last administered on 07/10/16 06:36; Start 07/09/16 at 20:30; Stop 07/10/16 at 13:00; Status DC Sodium Chloride (Iv Sodium Chloride 0.9% 1000ml Bag) 1,000 ml @ 150 mls/hr Q6H40M IV Last administered on 07/09/16 20:41; Start 07/09/16 at 20:24; Stop 07/10/16 at 15:29; Status DC Acetaminophen (Tylenol) 650 mg PRN Q4HRS PRN PO FEVER; Start 07/09/16 at 20:30 ; Stop 07/09/16 at 21:00; Status DC Acetaminophen (Tylenol) 650 mg PRN Q6HRS PRN PO FEVER; Start 07/09/16 at 21:00 ; Stop 07/10/16 at 15:28; Status DC Ondansetron HCl 4 mg 4 mg PRN Q6HRS PRN IV NAUSEA/VOMITING Last administered on 07/15/16 22:34; Start 07/09/16 at 21:00 Sodium Chloride (Iv Sodium Chloride 0.9% 1000ml Bag) 1,000 ml @ 150 mls/hr Q6H40M IV Last administered on 07/13/16 17:59; Start 07/09/16 at 21:00; Stop 07/13/16 at 19:27; Status DC Insulin Aspart (Novolog) 0-9 UNITS TIDWMEALS SQ Last administered on 07/15/16 16:59; Start 07/10/16 at 08:00 Dextrose 12.5 gm 12.5 gm PRN Q15MIN PRN IV SEE COMMENTS; Start 07/09/16 at 21: 00 Levofloxacin/ Dextrose (LEVAQUIN 500mg PREMIX) 100 ml @ 100 mls/hr Q24H IV Last administered on 07/12/16 02:49; Start 07/09/16 at 22:00; Stop 07/12/16 at 10:37; Status DC Guaifenesin (Mucinex) 600 mg BID PO Last administered on 07/15/16 20:56; Start 07/09/16 at 21:00 Albuterol Sulfate 2.5 mg 2.5 mg PRN Q4HRS PRN NEB SHORTNESS OF BREATH; Start at 21:00 Sodium Chloride (Iv Sodium Chloride 0.9% 1000ml Bag) 1,000 ml @ 0 mls/hr 1X ONCE IV Last administered on 07/10/16 10:27; Start 07/10/16 at 10:30; Stop at 10:31; Status DC Alprazolam (Xanax) 0.5 mg PRN Q8HRS PRN PO ANXIETY / AGITATION Last administered on 07/13/16 00:52; Start 07/10/16 at 13:00 Acetaminophen/ Hydrocodone Bitart (Lortab 5/325) 1 tab PRN Q6HRS PRN PO MODERATE - SEVERE PAIN Last administered on 07/15/16 20:56; Start 07/10/16 at 13:00 Acetaminophen (Tylenol) 650 mg PRN Q6HRS PRN PO MILD PAIN / TEMP Last administered on 07/14/16 00:08; Start 07/10/16 at 13:00 Heparin Sodium (Porcine) 5000 unit 5,000 unit Q8HRS SQ Last administered on 14:02; Start 07/10/16 at 14:00; Stop 07/11/16 at 22:55; Status DC Magnesium Sulfate/ Dextrose (Magnesium Sulfate PREMIX 2GM) 50 ml @ 25 mls/hr PRN DAILY PRN IV for Mag < 1.7 on am labs; Start 07/10/16 at 14:00 Diphenhydramine HCl (Benadryl) 25 mg PRN Q6HRS PRN IVP ITCHING Last administered on 07/13/16 01:52; Start 07/11/16 at 01:30 Lorazepam 2 mg 2 mg PRN Q4HRS PRN IV ANXIETY / AGITATION Last administered on 10:19; Start 07/11/16 at 01:30 Albumin Human (Albuminar) 100 ml @ 100 mls/hr TID IV Last administered on 07/13 13:56; Start 07/11/16 at 14:00; Stop 07/13/16 at 09:59; Status DC Insulin Aspart (Novolog) 10 units TIDAC SQ Last administered on 07/12/16 08:46 ; Start 07/11/16 at 12:30; Stop 07/12/16 at 09:17; Status DC Insulin Detemir 25 units 25 units QHS SQ Last administered on 07/12/16 01:48; Start 07/11/16 at 21:00; Stop 07/12/16 at 09:17; Status DC Heparin Sodium/ Dextrose 500 ml @ 0 mls/hr CONT PRN IV SEE I/O RECORD Last administered on 07/13/16 12:12; Start 07/11/16 at 23:00; Stop 07/13/16 at 12:32 ; Status DC Heparin Sodium (Porcine) 3,800 unit PRN Q6HRS PRN IV FOR UFH LEVEL LESS THAN 0.2 Last administered on 07/12/16 19:37; Start 07/11/16 at 23:00; Stop at 12:32; Status DC Heparin Sodium (Porcine) 1,900 unit PRN Q6HRS PRN IV FOR UFH LEVEL 0.2 - 0.29 Last administered on 07/13/16 02:33; Start 07/11/16 at 23:00; Stop 07/13/16 at 12:32; Status DC Warfarin Sodium (Coumadin Per Pharmacy) 1 each PRN DAILY PRN MC PER PROTOCOL Last administered on 07/16/16 14:25; Start 07/11/16 at 23:00 Warfarin Sodium (Coumadin) 5 mg 1X ONCE PO Last administered on 07/12/16 01: 45; Start 07/12/16 at 00:15; Stop 07/12/16 at 00:16; Status DC Info (Anti-Coagulation Monitoring By Pharmacy) 1 each PRN DAILY PRN MC SEE COMMENTS Last administered on 07/16/16 14:36; Start 07/11/16 at 23:45 Heparin Sodium (Porcine) 10,000 unit 1X ONCE IV Last administered on 01:48; Start 07/12/16 at 01:15; Stop 07/12/16 at 01:16; Status DC Insulin Aspart (Novolog) 12 units TIDAC SQ Last administered on 07/13/16 12:08 ; Start 07/12/16 at 11:30; Stop 07/13/16 at 12:32; Status DC Insulin Detemir (Levemir) 30 units QHS SQ Last administered on 07/12/16 21:07 ; Start 07/12/16 at 21:00; Stop 07/13/16 at 12:32; Status DC Tramadol HCl (Ultram) 50 mg PRN Q6HRS PRN PO PAIN; Start 07/12/16 at 10:15 Tramadol HCl (Ultram) 50 mg 1X ONCE PO Last administered on 07/12/16 14:32; Start 07/12/16 at 10:15; Stop 07/12/16 at 10:29; Status DC Methylprednisolone Acetate (Depo-Medrol 40mg Vial) 40 mg 1X ONCE IM ; Start at 10:30; Stop 07/12/16 at 10:31; Status DC Bupivacaine HCl (Sensorcaine-Mpf 0.25%) 10 ml 1X ONCE IJ ; Start 07/12/16 at 10 :30; Stop 07/12/16 at 10:31; Status DC Hydromorphone HCl 1 mg 1 mg 1X ONCE IV Last administered on 07/12/16 10:55; Start 07/12/16 at 10:30; Stop 07/12/16 at 10:46; Status DC Cefazolin Sodium 2 gm/Sodium Chloride 50 ml @ 100 mls/hr Q8HRS IV ; Start 07/12 at 11:00; Status Cancel Cefazolin Sodium/ Sodium Chloride (Ancef/Iv Sodium Chloride 0.9% 50ml) 50 ml @ 100 mls/hr Q8HRS IV Last administered on 07/16/16 13:33; Start 07/12/16 at 11: 00 Warfarin Sodium (Coumadin) 6 mg 1X WARF ONCE PO Last administered on 17:58; Start 07/12/16 at 16:00; Stop 07/12/16 at 16:01; Status DC Hydromorphone HCl (Dilaudid) 1 mg PRN Q4HRS PRN IVP PAIN Last administered on 22:25; Start 07/12/16 at 15:30 Polyethylene Glycol (miraLAX PACKET) 17 gm BID PO Last administered on 08:07; Start 07/12/16 at 21:00 Docusate Sodium (Colace) 100 mg PRN DAILY PRN PO CONSTIPATION; Start 07/12/16 at 15:30 Docusate Sodium (Colace) 100 mg DAILY PO Last administered on 07/15/16 08:07; Start 07/13/16 at 09:00 Magnesium Hydroxide (Milk Of Magnesia) 2,400 mg PRN DAILY PRN PO CONSTIPATION; Start 07/12/16 at 15:30 Gadobutrol (Gadavist) 7 mmol 1X ONCE IV Last administered on 07/13/16 10:45; Start 07/13/16 at 10:45; Stop 07/13/16 at 10:51; Status DC Gadobutrol (Gadavist) 7 mmol 1X ONCE IV Last administered on 07/13/16 10:45; Start 07/13/16 at 10:45; Stop 07/13/16 at 10:51; Status DC Warfarin Sodium (Coumadin) 10 mg 1X WARF ONCE PO Last administered on 17:56; Start 07/13/16 at 16:00; Stop 07/13/16 at 16:01; Status DC Enoxaparin Sodium (Lovenox Per Pharmacy Treatment Dosing) 1 each PRN DAILY PRN MC SEE COMMENTS; Start 07/13/16 at 12:30 Insulin Aspart (Novolog) 15 units TIDAC SQ Last administered on 07/15/16 16:59 ; Start 07/13/16 at 16:30 Insulin Detemir (Levemir) 40 units QHS SQ Last administered on 07/15/16 21:00 ; Start 07/13/16 at 21:00 Enoxaparin Sodium (Lovenox 150mg Syringe) 140 mg BID SQ Last administered on 20:56; Start 07/13/16 at 21:00 Warfarin Sodium (Coumadin) 15 mg 1X WARF ONCE PO ; Start 07/14/16 at 16:00; Stop 07/14/16 at 16:01; Status DC Ondansetron HCl (Zofran) 4 mg PRN Q6HRS PRN IV Nausea; Start 07/14/16 at 13:45 ; Stop 07/14/16 at 20:00; Status DC Fentanyl Citrate (Fentanyl 2ml Vial) 25 mcg PRN Q5MIN PRN IV MILD PAIN; Start 07/14/16 at 13:45; Stop 07/14/16 at 20:00; Status DC Fentanyl Citrate (Fentanyl 2ml Vial) 50 mcg PRN Q5MIN PRN IV MODERATE PAIN Last administered on 07/14/16 18:15; Start 07/14/16 at 13:45; Stop 07/15/16 at 20:00; Status DC Morphine Sulfate 1 mg 1 mg PRN Q10MIN PRN IV SEVERE PAIN; Start 07/14/16 at 13: 45; Stop 07/14/16 at 20:00; Status DC Lactated Ringer's (Iv Lactated Ringers) 1,000 ml @ 30 mls/hr Q24H IV ; Start at 13:42; Stop 07/14/16 at 19:44; Status DC Lidocaine HCl 2 ml 1X PRN PRN ID IV START; Start 07/14/16 at 13:45; Stop at 20:00; Status DC Hydromorphone HCl (Dilaudid) 0.5 mg PRN Q10MIN PRN IV SEV PAIN,Second choice; Start 07/14/16 at 13:45; Stop 07/14/16 at 18:00; Status DC Prochlorperazine Edisylate (Compazine) 5 mg PACU PRN PRN IV NAUSEA Last administered on 07/14/16t 17:55; Start 07/14/16 at 13:45; Stop 07/14/16 at 20:00 ; Status DC Bupivacaine HCl/ Epinephrine Bitart 50 ml 50 ml STK-MED ONCE .ROUTE ; Start at 15:20; Stop 07/14/16 at 15:21; Status DC Propofol (Diprivan) 20 ml @ As Directed STK-MED ONCE IV ; Start 07/14/16 at 15: 26; Stop 07/14/16 at 15:27; Status DC Lidocaine HCl 100 mg STK-MED ONCE .ROUTE ; Start 07/14/16 at 15:26; Stop at 15:27; Status DC Fentanyl Citrate (Fentanyl 2ml Vial) 100 mcg STK-MED ONCE .ROUTE ; Start at 15:27; Stop 07/14/16 at 15:28; Status DC Rocuronium [place] (Zemuron) 50 mg STK-MED ONCE .ROUTE ; Start 07/14/16 at 15:27 ; Stop 07/14/16 at 15:28; Status DC Dexamethasone Sodium Phosphate (Decadron) 20 mg STK-MED ONCE .ROUTE ; Start at 16:34; Stop 07/14/16 at 16:35; Status DC Desflurane (Suprane) 30 ml STK-MED ONCE IH ; Start 07/14/16 at 16:35; Stop 07/14 at 16:36; Status DC Ondansetron HCl (Zofran) 4 mg STK-MED ONCE .ROUTE ; Start 07/14/16 at 16:46; Stop 07/14/16 at 16:47; Status DC Glycopyrrolate (Robinul) 1 mg STK-MED ONCE .ROUTE ; Start 07/14/16 at 16:46; Stop 07/14/16 at 16:47; Status DC Neostigmine Methylsulfate 5 mg STK-MED ONCE .ROUTE ; Start 07/14/16 at 16:46; Stop 07/14/16 at 16:47; Status DC Fentanyl Citrate (Fentanyl 2ml Vial) 100 mcg STK-MED ONCE .ROUTE ; Start at 16:57; Stop 07/14/16 at 16:58; Status DC Insulin Aspart 10 units 10 units 1X ONCE SQ Last administered on 07/15/16 08: 26; Start 07/15/16 at 08:30; Stop 07/15/16 at 08:31; Status DC Cefazolin Sodium/ Dextrose (Ancef 2gm Premix) 50 ml @ 100 mls/hr 1X PREOP PRN IV PER PROTOCOL Last administered on 07/16/16 05:56; Start 07/16/16 at 10:30; Stop 07/16/16 at 18:00 Insulin Aspart (Novolog) 15 units 1X ONCE SQ Last administered on 07/15/16 12 :25; Start 07/15/16 at 12:15; Stop 07/15/16 at 12:16; Status DC Warfarin Sodium (Coumadin - No Dose Today) 1 each 1X WARF ONCE MC Last administered on 07/15/16 16:00; Start 07/15/16 at 16:00; Stop 07/15/16 at 16:01 ; Status DC Rocuronium [place] (Zemuron) 50 mg STK-MED ONCE .ROUTE ; Start 07/16/16 at 09:56 ; Stop 07/16/16 at 09:57; Status DC Dexamethasone Sodium Phosphate (Decadron) 20 mg STK-MED ONCE .ROUTE ; Start at 09:58; Stop 07/16/16 at 09:59; Status DC Ondansetron HCl 4 mg 4 mg STK-MED ONCE .ROUTE ; Start 07/16/16 at 09:58; Stop at 09:59; Status DC Propofol (Diprivan) 20 ml @ As Directed STK-MED ONCE IV ; Start 07/16/16 at 09: 58; Stop 07/16/16 at 09:59; Status DC Lidocaine HCl 100 mg STK-MED ONCE .ROUTE ; Start 07/16/16 at 09:58; Stop at 09:59; Status DC Fentanyl Citrate (Fentanyl 5ml Vial) 250 mcg STK-MED ONCE .ROUTE ; Start at 09:58; Stop 07/16/16 at 09:59; Status DC Midazolam HCl (Versed) 2 mg STK-MED ONCE .ROUTE ; Start 07/16/16 at 09:58; Stop 07/16/16 at 09:59; Status DC Famotidine (Pepcid) 20 mg STK-MED ONCE .ROUTE ; Start 07/16/16 at 09:58; Stop at 09:59; Status DC Succinylcholine Chloride (Anectine) 200 mg STK-MED ONCE .ROUTE ; Start 07/16/16 at 10:10; Stop 07/16/16 at 10:11; Status DC Succinylcholine Chloride 200 mg 200 mg STK-MED ONCE .ROUTE ; Start 07/16/16 at 10:26; Stop 07/16/16 at 10:27; Status DC Acetaminophen (Ofirmev) 100 ml @ As Directed STK-MED ONCE IV ; Start 07/16/16 at 11:49; Stop 07/16/16 at 11:50; Status DC Glycopyrrolate (Robinul) 1 mg STK-MED ONCE .ROUTE ; Start 07/16/16 at 11:55; Stop 07/16/16 at 11:56; Status DC Neostigmine Methylsulfate 5 mg STK-MED ONCE .ROUTE ; Start 07/16/16 at 11:55; Stop 07/16/16 at 11:56; Status DC Ondansetron HCl (Zofran) 4 mg PRN Q6HRS PRN IV Nausea; Start 07/16/16 at 12:30 ; Stop 07/17/16 at 12:29 Fentanyl Citrate (Fentanyl 2ml Vial) 25 mcg PRN Q5MIN PRN IV MILD PAIN; Start 07/16/16 at 12:30; Stop 07/17/16 at 12:29 Fentanyl Citrate (Fentanyl 2ml Vial) 50 mcg PRN Q5MIN PRN IV MODERATE PAIN; Start 07/16/16 at 12:30; Stop 07/17/16 at 12:29 Morphine Sulfate 1 mg 1 mg PRN Q10MIN PRN IV SEVERE PAIN; Start 07/16/16 at 12: 30; Stop 07/17/16 at 12:29 Lactated Ringer's (Iv Lactated Ringers) 1,000 ml @ 30 mls/hr Q24H IV ; Start at 12:28; Stop 07/17/16 at 00:27 Lidocaine HCl 2 ml 1X PRN PRN ID IV START; Start 07/16/16 at 12:30; Stop at 12:29 Hydromorphone HCl (Dilaudid) 0.5 mg PRN Q10MIN PRN IV SEV PAIN,Second choice Last administered on 07/16/16 14:38; Start 07/16/16 at 12:30; Stop 07/17/16 at 12:29 Prochlorperazine Edisylate (Compazine) 5 mg PACU PRN PRN IV NAUSEA; Start 07/16 at 12:30; Stop 07/17/16 at 12:29 Warfarin Sodium (Coumadin) 10 mg 1X WARF ONCE PO Last administered on 15:58; Start 07/16/16 at 16:00; Stop 07/16/16 at 16:01; Status DC Ondansetron HCl (Zofran) 4 mg PRN Q6HRS PRN IV Nausea; Start 07/19/16 at 07:00 ; Stop 07/20/16 at 06:59 Fentanyl Citrate (Fentanyl 2ml Vial) 25 mcg PRN Q5MIN PRN IV MILD PAIN; Start 07/19/16 at 07:00; Stop 07/20/16 at 06:59 Fentanyl Citrate (Fentanyl 2ml Vial) 50 mcg PRN Q5MIN PRN IV MODERATE PAIN; Start 07/19/16 at 07:00; Stop 07/20/16 at 06:59 Morphine Sulfate 1 mg 1 mg PRN Q10MIN PRN IV SEVERE PAIN; Start 07/19/16 at 07: 00; Stop 07/20/16 at 06:59 Lactated Ringer's (Iv Lactated Ringers) 1,000 ml @ 0 mls/hr Q0M IV ; Start at 07:00; Stop 07/19/16 at 18:59 Lidocaine HCl 2 ml 1X PRN PRN ID IV START; Start 07/19/16 at 07:00; Stop at 06:59 Hydromorphone HCl (Dilaudid) 0.5 mg PRN Q10MIN PRN IV SEVERE PAIN, Second choice; Start 07/19/16 at 07:00; Stop 07/20/16 at 06:59 Prochlorperazine Edisylate (Compazine) 5 mg PACU PRN PRN IV NAUSEA; Start 07/19 at 07:00; Stop 07/20/16 at 06:59 Active Scripts Active Phenergan (Promethazine HCl) 25 Mg Supp.rect 25 Mg RC Q8HRS PRN Zofran Odt (Ondansetron) 4 Mg Tab.rapdis 1 Tab SL Q8HRS PRN Vitals/I & O Vital Sign - Last 24 Hours 07/15/16 07/15/16 07/15/16 07/15/16 19:00 20:00 20:56 21:56 Temp 98.2 98.2 Pulse 85 Resp 16 B/P 131/54 Pulse Ox 98 98 98 O2 Delivery Room Air Nasal Cannula Nasal Cannula Nasal Cannula O2 Flow Rate 2.0 2.0 2.0 07/15/16 07/15/16 07/16/16 07/16/16 23:00 23:00 03:00 07:00 Temp 98.2 99.8 99.6 98.8 98.2 99.8 99.6 98.8 Pulse 85 86 82 Resp 18 18 B/P 131/54 131/85 128/86 129/69 Pulse Ox 98 98 95 93 O2 Delivery Room Air Nasal Cannula Room Air Nasal Cannula O2 Flow Rate 2.0 2.0 07/16/16 07/16/16 07/16/16 07/16/16 08:00 09:36 12:21 12:30 Temp 98.8 98.4 98.8 98.4 Pulse 86 89 Resp 18 16 B/P 140/67 130/54 Pulse Ox 92 95 O2 Delivery Nasal Cannula Nasal Cannula Nasal Cannula Nasal Cannula O2 Flow Rate 2.0 4 2 07/16/16 07/16/16 07/16/16 07/16/16 12:51 13:06 14:38 15:00 Temp 98.4 98.6 97.5 98.4 98.6 97.5 Pulse 16 82 82 Resp 16 18 18 18 B/P 135/54 132/67 112/56 Pulse Ox 97 95 98 95 O2 Delivery Nasal Cannula Nasal Cannula Nasal Cannula O2 Flow Rate 2 2 1.0 2.0 07/16/16 15:21 Resp 22 Pulse Ox 97 O2 Delivery Room Air O2 Flow Rate 2.0 Intake and Output 07/15/16 07/15/16 07/16/16 15:00 23:00 07:00 Intake Total 250 ml 850 ml 50 ml Output Total 800 ml 300 ml Balance 250 ml 50 ml -250 ml CLIFFORD BURGOS MD Jul 16, 2016 17:57
[2016-07-16 19:00] VITALS: BP 131/67
[2016-07-16] MEDS: INSULIN DETEMIR 300 UNITS/3 ML INSULN.PEN. SQ SCH (21:04)
[2016-07-16 23:00] VITALS: BP 138/81
[2016-07-17 03:00] VITALS: BP 148/76
[2016-07-17] MEDS: CEFAZOLIN SODIUM IV SCH ×3 (05:41→22:23)
[2016-07-17] MEDS: HYDROCODONE/APAP 5/325MG TABLET. PO PRN ×2 (05:41→17:22)
[2016-07-17] MEDS: NORMAL SALINE IV SCH ×3 (05:41→22:23)
[2016-07-17 07:00] VITALS: BP 123/77
[2016-07-17] MEDS: INSULIN ASPART 300 UNITS/3 ML INSULN.PEN SQ SCH ×6 (07:30→17:24)
[2016-07-17 08:06] LABS: BASO # 0.1 x10^3/uL (0.0-0.2); BASO % 1 % (0-3); EOS % 1 % (0-3); HEMOGLOBIN 10.9 g/dL (13.0-17.5); LYMPH # 1.5 x10^3/uL (1.0-4.8); LYMPH % 15 % (24-48); MEAN CORPUSCULAR HEMOGLOBIN 28 pg (25-35); MEAN CORPUSCULAR HGB CONC 32 g/dL (31-37); MEAN CORPUSCULAR VOLUME 86 fL (79-100); MONO % 4 % (0-9); NEUT % 79 % (31-73); PLATELET COUNT 495 x10^3/uL (140-400); RED BLOOD COUNT 3.95 x10^6/uL (4.30-5.70); WHITE BLOOD COUNT 10.4 x10^3/uL (4.0-11.0)
[2016-07-17 08:25] LABS: INR 1.4 (0.8-1.1); PROTHROMBIN TIME PATIENT 15.9 SEC (11.7-14.0)
[2016-07-17 08:39] LABS: ALBUMIN 2.1 g/dL (3.4-5.0); CALCIUM 8.2 mg/dL (8.5-10.1); CREATININE 0.7 mg/dL (0.7-1.3); GFR 117.1; POTASSIUM 4.7 mmol/L (3.5-5.1)
[2016-07-17] MEDS: GUAIFENESIN ER 600 MG TABLET.ER PO SCH ×2 (08:51→20:55)
[2016-07-17] MEDS: ENOXAPARIN ** NOTE DOSE ** SYRINGE SQ SCH ×2 (08:54→20:56)
[2016-07-17] MEDS: DOCUSATE SODIUM 100 MG CAPSULE PO SCH (09:00)
[2016-07-17] MEDS: POLYETHYLENE GLYCOL 3350 17 GM PACKET. PO SCH ×2 (09:00→21:00)
--- NOTE | 2016-07-17 09:00 | PDOC ---
PROGRESS NOTES Chief Complaint Chief Complaint Shoulder pain Septic joint Bronchitis ASSESSMENT AND PLAN: 1. Septic L shoulder joint: s/p I&D in OR on 07/[address] Wallace. Abx as per ID service; prelim culture growing S. aureus 2. Sepsis: resolved. blood cultures with MSSA on 07/11 and 07/14. needs rpt cult neg before placing PICC line for intermediate Abx. TTE suspicious, but pt declined HARISH. anticipate Abx regimen at minimum 4 weeks 3. Pain control: has IV morphine; reluctant to even take PO meds 4. NELIDA: PoA, vasomotor. now resolved 5. Hyponatremia: POA. now resolved 6. DM2: poor control at home (HgbA1c 11), fair control here. on long- and short-acting insulin plus ISS 7. UTI: POA. culture with MSSA 8. Bronchitis: POA. essentially resolved. minor cough persisting 9. LLL lung nodule 10. 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 switch to thrombin inhibitor before going home 11. Hypoalbuminemia: severe, in BMI 38. ? acute inflammation, malnutrition vs renal losses. supplements 12. Obesity - BMI 38 >30 min stent cumulatively in d/w pt and re plan of care as outlined above. History of Present Illness History of Present Illness Vitals Vitals Vital Signs Date Time Temp Pulse Resp B/P Pulse Ox O2 Delivery O2 Flow Rate FiO2 07/17/16 07:00 98.6 91 18 123/77 97 Room Air 98.6 07/17/16 06:41 2.0 Physical Exam General: Alert, Oriented X3, Cooperative, No acute distress Heart: Regular rate, Normal S1, Normal S2, No murmurs Lungs: Clear, Other (No wheezing) Abdomen: Soft, No tenderness Extremities: Other (left shoulder, wound vac in place) Skin: No rashes, No breakdown, Other Labs LABS Laboratory Tests Test 07/16/16 14:17 07/16/16 16:55 07/16/16 20:59 07/17/16 07:03 Glucose (Fingerstick) 132mg/dL (70-99) 199mg/dL (70-99) 250mg/dL (70-99) 138mg/dL (70-99) Test 07/17/16 07:40 White Blood Count 10.4x10^3/uL (4.0-11.0) Red Blood Count 3.95x10^6/uL (4.30-5.70) Hemoglobin 10.9g/dL (13.0-17.5) Hematocrit 34.0% (39.0-53.0) Mean Corpuscular Volume 86fL (79-100) Mean Corpuscular Hemoglobin 28pg (25-35) Mean Corpuscular Hemoglobin Concent 32g/dL (31-37) Red Cell Distribution Width 16.0% (11.5-14.5) Platelet Count 495x10^3/uL (140-400) Neutrophils (%) (Auto) 79% (31-73) Lymphocytes (%) (Auto) 15% (24-48) Monocytes (%) (Auto) 4% (0-9) Eosinophils (%) (Auto) 1% (0-3) Basophils (%) (Auto) 1% (0-3) Neutrophils # (Auto) 8.2x10^3uL (1.8-7.7) Lymphocytes # (Auto) 1.5x10^3/uL (1.0-4.8) Monocytes # (Auto) 0.4x10^3/uL (0.0-1.1) Eosinophils # (Auto) 0.1x10^3/uL (0.0-0.7) Basophils # (Auto) 0.1x10^3/uL (0.0-0.2) Prothrombin Time 15.9SEC (11.7-14.0) Prothromb Time International Ratio 1.4 (0.8-1.1) Assessment and Plan Assessmemt and Plan pain 7, but declines pain meds. very frustrated about uncertainties and the feeling that different doctors tell him different things. determined to go home in AM Problems: Comment Review of Relevant ERAN MATUTE MD Jul 17, 2016 09:00
[2016-07-17 11:12] VITALS: BP 140/68
--- NOTE | 2016-07-17 11:59 | PDOC ---
PROGRESS NOTES Subjective Subjective He admits continued pain left shoulder. Objective Objective Vital Signs Date Time Temp Pulse Resp B/P Pulse Ox O2 Delivery O2 Flow Rate FiO2 07/17/16 11:12 97.9 83 18 140/68 95 Room Air 97.9 07/17/16 06:41 2.0 Intake and Output 07/17/16 07:00 Intake Total 1370 ml Output Total 3700 ml Balance -2330 ml Intake Oral 1320 ml IV Total 50 ml Output Urine Total 3700 ml Physical Exam Physical Exam He is sitting up in bedside chair and continues with significant pain on attempts at movement of left shoulder. Assessment Assessment Problems Medical Problems: (1) Acute renal injury Status: Acute (2) Dehydration Status: Acute (3) Hyponatremia Status: Acute (4) Nausea & vomiting Status: Acute (5) Uncontrolled diabetes mellitus Status: Acute Plan Plan of Care To continue present physical and occupational therapy follow up as tolerated. Comment Review of Relevant I have reviewed the following items [place] (where applicable) has been applied. Labs Laboratory Tests Test 07/15/16 15:20 07/15/16 16:29 07/15/16 20:07 07/16/16 05:10 Glucose (Fingerstick) 312mg/dL (70-99) 271mg/dL (70-99) 296mg/dL (70-99) White Blood Count 8.5x10^3/uL (4.0-11.0) Red Blood Count 3.56x10^6/uL (4.30-5.70) Hemoglobin 9.8g/dL (13.0-17.5) Hematocrit 30.6% (39.0-53.0) Mean Corpuscular Volume 86fL (79-100) Mean Corpuscular Hemoglobin 28pg (25-35) Mean Corpuscular Hemoglobin Concent 32g/dL (31-37) Red Cell Distribution Width 16.2% (11.5-14.5) Platelet Count 422x10^3/uL (140-400) Neutrophils (%) (Auto) 63% (31-73) Lymphocytes (%) (Auto) 31% (24-48) Monocytes (%) (Auto) 5% (0-9) Eosinophils (%) (Auto) 1% (0-3) Basophils (%) (Auto) 0% (0-3) Neutrophils # (Auto) 5.4x10^3uL (1.8-7.7) Lymphocytes # (Auto) 2.6x10^3/uL (1.0-4.8) Monocytes # (Auto) 0.4x10^3/uL (0.0-1.1) Eosinophils # (Auto) 0.1x10^3/uL (0.0-0.7) Basophils # (Auto) 0.0x10^3/uL (0.0-0.2) Prothrombin Time 16.5SEC (11.7-14.0) Prothromb Time International Ratio 1.4 (0.8-1.1) Sodium Level 140mmol/L (136-145) Potassium Level 4.1mmol/L (3.5-5.1) Chloride Level 106mmol/L (98-107) Carbon Dioxide Level 28mmol/L (21-32) Anion Gap 6 (6-14) Blood Urea Nitrogen 23mg/dL (8-26) Creatinine 0.8mg/dL (0.7-1.3) Estimated GFR (Cockcroft-Gault) 100.4 Glucose Level 187mg/dL (70-99) Calcium Level 8.4mg/dL (8.5-10.1) Phosphorus Level 3.7mg/dL (2.6-4.7) Creatine Kinase 33U/L (39-308) Albumin 1.7g/dL (3.4-5.0) Test 07/16/16 07:37 07/16/16 12:36 07/16/16 14:17 07/16/16 16:55 Glucose (Fingerstick) 151mg/dL (70-99) 121mg/dL (70-99) 132mg/dL (70-99) 199mg/dL (70-99) Test 07/16/16 20:59 07/17/16 07:03 07/17/16 07:40 07/17/16 11:02 Glucose (Fingerstick) 250mg/dL (70-99) 138mg/dL (70-99) 226mg/dL (70-99) White Blood Count 10.4x10^3/uL (4.0-11.0) Red Blood Count 3.95x10^6/uL (4.30-5.70) Hemoglobin 10.9g/dL (13.0-17.5) Hematocrit 34.0% (39.0-53.0) Mean Corpuscular Volume 86fL (79-100) Mean Corpuscular Hemoglobin 28pg (25-35) Mean Corpuscular Hemoglobin Concent 32g/dL (31-37) Red Cell Distribution Width 16.0% (11.5-14.5) Platelet Count 495x10^3/uL (140-400) Neutrophils (%) (Auto) 79% (31-73) Lymphocytes (%) (Auto) 15% (24-48) Monocytes (%) (Auto) 4% (0-9) Eosinophils (%) (Auto) 1% (0-3) Basophils (%) (Auto) 1% (0-3) Neutrophils # (Auto) 8.2x10^3uL (1.8-7.7) Lymphocytes # (Auto) 1.5x10^3/uL (1.0-4.8) Monocytes # (Auto) 0.4x10^3/uL (0.0-1.1) Eosinophils # (Auto) 0.1x10^3/uL (0.0-0.7) Basophils # (Auto) 0.1x10^3/uL (0.0-0.2) Prothrombin Time 15.9SEC (11.7-14.0) Prothromb Time International Ratio 1.4 (0.8-1.1) Sodium Level 141mmol/L (136-145) Potassium Level 4.7mmol/L (3.5-5.1) Chloride Level 104mmol/L (98-107) Carbon Dioxide Level 29mmol/L (21-32) Anion Gap 8 (6-14) Blood Urea Nitrogen 16mg/dL (8-26) Creatinine 0.7mg/dL (0.7-1.3) Estimated GFR (Cockcroft-Gault) 117.1 Glucose Level 153mg/dL (70-99) Calcium Level 8.2mg/dL (8.5-10.1) Phosphorus Level 4.0mg/dL (2.6-4.7) Creatine Kinase 26U/L (39-308) Albumin 2.1g/dL (3.4-5.0) Laboratory Tests Test 07/16/16 12:36 07/16/16 14:17 07/16/16 16:55 07/16/16 20:59 Glucose (Fingerstick) 121mg/dL (70-99) 132mg/dL (70-99) 199mg/dL (70-99) 250mg/dL (70-99) Test 07/17/16 07:03 07/17/16 07:40 07/17/16 11:02 Glucose (Fingerstick) 138mg/dL (70-99) 226mg/dL (70-99) White Blood Count 10.4x10^3/uL (4.0-11.0) Red Blood Count 3.95x10^6/uL (4.30-5.70) Hemoglobin 10.9g/dL (13.0-17.5) Hematocrit 34.0% (39.0-53.0) Mean Corpuscular Volume 86fL (79-100) Mean Corpuscular Hemoglobin 28pg (25-35) Mean Corpuscular Hemoglobin Concent 32g/dL (31-37) Red Cell Distribution Width 16.0% (11.5-14.5) Platelet Count 495x10^3/uL (140-400) Neutrophils (%) (Auto) 79% (31-73) Lymphocytes (%) (Auto) 15% (24-48) Monocytes (%) (Auto) 4% (0-9) Eosinophils (%) (Auto) 1% (0-3) Basophils (%) (Auto) 1% (0-3) Neutrophils # (Auto) 8.2x10^3uL (1.8-7.7) Lymphocytes # (Auto) 1.5x10^3/uL (1.0-4.8) Monocytes # (Auto) 0.4x10^3/uL (0.0-1.1) Eosinophils # (Auto) 0.1x10^3/uL (0.0-0.7) Basophils # (Auto) 0.1x10^3/uL (0.0-0.2) Prothrombin Time 15.9SEC (11.7-14.0) Prothromb Time International Ratio 1.4 (0.8-1.1) Sodium Level 141mmol/L (136-145) Potassium Level 4.7mmol/L (3.5-5.1) Chloride Level 104mmol/L (98-107) Carbon Dioxide Level 29mmol/L (21-32) Anion Gap 8 (6-14) Blood Urea Nitrogen 16mg/dL (8-26) Creatinine 0.7mg/dL (0.7-1.3) Estimated GFR (Cockcroft-Gault) 117.1 Glucose Level 153mg/dL (70-99) Calcium Level 8.2mg/dL (8.5-10.1) Phosphorus Level 4.0mg/dL (2.6-4.7) Creatine Kinase 26U/L (39-308) Albumin 2.1g/dL (3.4-5.0) Microbiology 07/14/16 Blood Culture - Preliminary, Resulted 07/14/16 Blood Culture Result 1 (EMILI) - Preliminary, Resulted 07/09/16 Urine Culture - Final, Complete 07/09/16 Urine Culture Result 1 (EMILI) - Final, Complete 07/09/16 Antimicrobic Susceptibility - Final, Complete 07/14/16 Anaerobic/Aerobic Culture, Resulted Pending 07/14/16 Anaerobic Culture Result 1 (EMILI), Resulted Pending 07/14/16 Aerobic Culture - Final, Resulted 07/14/16 Aerobic Culture Result 1 (EMILI) - Final, Resulted 07/14/16 Antimicrobic Susceptibility - Final, Resulted Medications Current Medications Sodium Chloride (Iv Sodium Chloride 0.9% 1000ml Bag) 1,000 ml @ 1,000 mls/hr Q1H IV Last administered on 07/09/16 19:34; Start 07/09/16 at 19:18; Stop at 20:17; Status DC Hydromorphone HCl (Dilaudid) 2 mg 1X ONCE IV ; Start 07/09/16 at 19:30; Stop at 19:30; Status DC Ondansetron HCl (Zofran) 4 mg 1X ONCE IV Last administered on 07/09/16 19:33 ; Start 07/09/16 at 19:30; Stop 07/09/16 at 19:31; Status DC Hydromorphone HCl (Dilaudid) 1 mg 1X ONCE IV Last administered on 07/09/16 19 :33; Start 07/09/16 at 19:30; Stop 07/09/16 at 19:31; Status DC Ondansetron HCl (Zofran) 4 mg PRN Q8HRS PRN IV NAUSEA/VOMITING; Start 07/09/16 at 20:30; Stop 07/09/16 at 21:00; Status DC Morphine Sulfate 4 mg 4 mg PRN Q2HR PRN IV PAIN Last administered on 07/10/16 06:36; Start 07/09/16 at 20:30; Stop 07/10/16 at 13:00; Status DC Sodium Chloride (Iv Sodium Chloride 0.9% 1000ml Bag) 1,000 ml @ 150 mls/hr Q6H40M IV Last administered on 07/09/16 20:41; Start 07/09/16 at 20:24; Stop 07/10/16 at 15:29; Status DC Acetaminophen (Tylenol) 650 mg PRN Q4HRS PRN PO FEVER; Start 07/09/16 at 20:30 ; Stop 07/09/16 at 21:00; Status DC Acetaminophen (Tylenol) 650 mg PRN Q6HRS PRN PO FEVER; Start 07/09/16 at 21:00 ; Stop 07/10/16 at 15:28; Status DC Ondansetron HCl 4 mg 4 mg PRN Q6HRS PRN IV NAUSEA/VOMITING Last administered on 07/15/16 22:34; Start 07/09/16 at 21:00 Sodium Chloride (Iv Sodium Chloride 0.9% 1000ml Bag) 1,000 ml @ 150 mls/hr Q6H40M IV Last administered on 07/13/16 17:59; Start 07/09/16 at 21:00; Stop 07/13/16 at 19:27; Status DC Insulin Aspart (Novolog) 0-9 UNITS TIDWMEALS SQ Last administered on 07/15/16 16:59; Start 07/10/16 at 08:00 Dextrose 12.5 gm 12.5 gm PRN Q15MIN PRN IV SEE COMMENTS; Start 07/09/16 at 21: 00 Levofloxacin/ Dextrose (LEVAQUIN 500mg PREMIX) 100 ml @ 100 mls/hr Q24H IV Last administered on 07/12/16 02:49; Start 07/09/16 at 22:00; Stop 07/12/16 at 10:37; Status DC Guaifenesin (Mucinex) 600 mg BID PO Last administered on 07/17/16 08:51; Start 07/09/16 at 21:00 Albuterol Sulfate 2.5 mg 2.5 mg PRN Q4HRS PRN NEB SHORTNESS OF BREATH; Start at 21:00 Sodium Chloride (Iv Sodium Chloride 0.9% 1000ml Bag) 1,000 ml @ 0 mls/hr 1X ONCE IV Last administered on 07/10/16 10:27; Start 07/10/16 at 10:30; Stop at 10:31; Status DC Alprazolam (Xanax) 0.5 mg PRN Q8HRS PRN PO ANXIETY / AGITATION Last administered on 07/13/16 00:52; Start 07/10/16 at 13:00 Acetaminophen/ Hydrocodone Bitart (Lortab 5/325) 1 tab PRN Q6HRS PRN PO MODERATE - SEVERE PAIN Last administered on 07/17/16 05:41; Start 07/10/16 at 13:00 Acetaminophen (Tylenol) 650 mg PRN Q6HRS PRN PO MILD PAIN / TEMP Last administered on 07/14/16 00:08; Start 07/10/16 at 13:00 Heparin Sodium (Porcine) 5000 unit 5,000 unit Q8HRS SQ Last administered on 14:02; Start 07/10/16 at 14:00; Stop 07/11/16 at 22:55; Status DC Magnesium Sulfate/ Dextrose (Magnesium Sulfate PREMIX 2GM) 50 ml @ 25 mls/hr PRN DAILY PRN IV for Mag < 1.7 on am labs; Start 07/10/16 at 14:00 Diphenhydramine HCl (Benadryl) 25 mg PRN Q6HRS PRN IVP ITCHING Last administered on 07/13/16 01:52; Start 07/11/16 at 01:30 Lorazepam 2 mg 2 mg PRN Q4HRS PRN IV ANXIETY / AGITATION Last administered on 10:19; Start 07/11/16 at 01:30 Albumin Human (Albuminar) 100 ml @ 100 mls/hr TID IV Last administered on 07/13 13:56; Start 07/11/16 at 14:00; Stop 07/13/16 at 09:59; Status DC Insulin Aspart (Novolog) 10 units TIDAC SQ Last administered on 07/12/16 08:46 ; Start 07/11/16 at 12:30; Stop 07/12/16 at 09:17; Status DC Insulin Detemir 25 units 25 units QHS SQ Last administered on 07/12/16 01:48; Start 07/11/16 at 21:00; Stop 07/12/16 at 09:17; Status DC Heparin Sodium/ Dextrose 500 ml @ 0 mls/hr CONT PRN IV SEE I/O RECORD Last administered on 07/13/16 12:12; Start 07/11/16 at 23:00; Stop 07/13/16 at 12:32 ; Status DC Heparin Sodium (Porcine) 3,800 unit PRN Q6HRS PRN IV FOR UFH LEVEL LESS THAN 0.2 Last administered on 07/12/16 19:37; Start 07/11/16 at 23:00; Stop at 12:32; Status DC Heparin Sodium (Porcine) 1,900 unit PRN Q6HRS PRN IV FOR UFH LEVEL 0.2 - 0.29 Last administered on 07/13/16 02:33; Start 07/11/16 at 23:00; Stop 07/13/16 at 12:32; Status DC Warfarin Sodium (Coumadin Per Pharmacy) 1 each PRN DAILY PRN MC PER PROTOCOL Last administered on 07/16/16 14:25; Start 07/11/16 at 23:00 Warfarin Sodium (Coumadin) 5 mg 1X ONCE PO Last administered on 07/12/16 01: 45; Start 07/12/16 at 00:15; Stop 07/12/16 at 00:16; Status DC Info (Anti-Coagulation Monitoring By Pharmacy) 1 each PRN DAILY PRN MC SEE COMMENTS Last administered on 07/16/16 14:36; Start 07/11/16 at 23:45 Heparin Sodium (Porcine) 10,000 unit 1X ONCE IV Last administered on 01:48; Start 07/12/16 at 01:15; Stop 07/12/16 at 01:16; Status DC Insulin Aspart (Novolog) 12 units TIDAC SQ Last administered on 07/13/16 12:08 ; Start 07/12/16 at 11:30; Stop 07/13/16 at 12:32; Status DC Insulin Detemir (Levemir) 30 units QHS SQ Last administered on 07/12/16 21:07 ; Start 07/12/16 at 21:00; Stop 07/13/16 at 12:32; Status DC Tramadol HCl (Ultram) 50 mg PRN Q6HRS PRN PO PAIN; Start 07/12/16 at 10:15 Tramadol HCl (Ultram) 50 mg 1X ONCE PO Last administered on 07/12/16 14:32; Start 07/12/16 at 10:15; Stop 07/12/16 at 10:29; Status DC Methylprednisolone Acetate (Depo-Medrol 40mg Vial) 40 mg 1X ONCE IM ; Start at 10:30; Stop 07/12/16 at 10:31; Status DC Bupivacaine HCl (Sensorcaine-Mpf 0.25%) 10 ml 1X ONCE IJ ; Start 07/12/16 at 10 :30; Stop 07/12/16 at 10:31; Status DC Hydromorphone HCl 1 mg 1 mg 1X ONCE IV Last administered on 07/12/16 10:55; Start 07/12/16 at 10:30; Stop 07/12/16 at 10:46; Status DC Cefazolin Sodium 2 gm/Sodium Chloride 50 ml @ 100 mls/hr Q8HRS IV ; Start 07/12 at 11:00; Status Cancel Cefazolin Sodium/ Sodium Chloride (Ancef/Iv Sodium Chloride 0.9% 50ml) 50 ml @ 100 mls/hr Q8HRS IV Last administered on 07/17/16 05:41; Start 07/12/16 at 11: 00 Warfarin Sodium (Coumadin) 6 mg 1X WARF ONCE PO Last administered on 17:58; Start 07/12/16 at 16:00; Stop 07/12/16 at 16:01; Status DC Hydromorphone HCl (Dilaudid) 1 mg PRN Q4HRS PRN IVP PAIN Last administered on 22:25; Start 07/12/16 at 15:30 Polyethylene Glycol (miraLAX PACKET) 17 gm BID PO Last administered on 08:07; Start 07/12/16 at 21:00 Docusate Sodium (Colace) 100 mg PRN DAILY PRN PO CONSTIPATION; Start 07/12/16 at 15:30 Docusate Sodium (Colace) 100 mg DAILY PO Last administered on 07/15/16 08:07; Start 07/13/16 at 09:00 Magnesium Hydroxide (Milk Of Magnesia) 2,400 mg PRN DAILY PRN PO CONSTIPATION; Start 07/12/16 at 15:30 Gadobutrol (Gadavist) 7 mmol 1X ONCE IV Last administered on 07/13/16 10:45; Start 07/13/16 at 10:45; Stop 07/13/16 at 10:51; Status DC Gadobutrol (Gadavist) 7 mmol 1X ONCE IV Last administered on 07/13/16 10:45; Start 07/13/16 at 10:45; Stop 07/13/16 at 10:51; Status DC Warfarin Sodium (Coumadin) 10 mg 1X WARF ONCE PO Last administered on 17:56; Start 07/13/16 at 16:00; Stop 07/13/16 at 16:01; Status DC Enoxaparin Sodium (Lovenox Per Pharmacy Treatment Dosing) 1 each PRN DAILY PRN MC SEE COMMENTS; Start 07/13/16 at 12:30 Insulin Aspart (Novolog) 15 units TIDAC SQ Last administered on 07/15/16 16:59 ; Start 07/13/16 at 16:30 Insulin Detemir (Levemir) 40 units QHS SQ Last administered on 07/16/16 21:04 ; Start 07/13/16 at 21:00 Enoxaparin Sodium (Lovenox 150mg Syringe) 140 mg BID SQ Last administered on 08:54; Start 07/13/16 at 21:00 Warfarin Sodium (Coumadin) 15 mg 1X WARF ONCE PO ; Start 07/14/16 at 16:00; Stop 07/14/16 at 16:01; Status DC Ondansetron HCl (Zofran) 4 mg PRN Q6HRS PRN IV Nausea; Start 07/14/16 at 13:45 ; Stop 07/14/16 at 20:00; Status DC Fentanyl Citrate (Fentanyl 2ml Vial) 25 mcg PRN Q5MIN PRN IV MILD PAIN; Start 07/14/16 at 13:45; Stop 07/14/16 at 20:00; Status DC Fentanyl Citrate (Fentanyl 2ml Vial) 50 mcg PRN Q5MIN PRN IV MODERATE PAIN Last administered on 07/14/16t 18:15; Start 07/14/16 at 13:45; Stop 07/15/16 at 20:00; Status DC Morphine Sulfate 1 mg 1 mg PRN Q10MIN PRN IV SEVERE PAIN; Start 07/14/16 at 13: 45; Stop 07/14/16 at 20:00; Status DC Lactated Ringer's (Iv Lactated Ringers) 1,000 ml @ 30 mls/hr Q24H IV ; Start at 13:42; Stop 07/14/16 at 19:44; Status DC Lidocaine HCl 2 ml 1X PRN PRN ID IV START; Start 07/14/16 at 13:45; Stop at 20:00; Status DC Hydromorphone HCl (Dilaudid) 0.5 mg PRN Q10MIN PRN IV SEV PAIN,Second choice; Start 07/14/16 at 13:45; Stop 07/14/16 at 18:00; Status DC Prochlorperazine Edisylate (Compazine) 5 mg PACU PRN PRN IV NAUSEA Last administered on 07/14/16t 17:55; Start 07/14/16 at 13:45; Stop 07/14/16 at 20:00 ; Status DC Bupivacaine HCl/ Epinephrine Bitart 50 ml 50 ml STK-MED ONCE .ROUTE ; Start at 15:20; Stop 07/14/16 at 15:21; Status DC Propofol (Diprivan) 20 ml @ As Directed STK-MED ONCE IV ; Start 07/14/16 at 15: 26; Stop 07/14/16 at 15:27; Status DC Lidocaine HCl 100 mg STK-MED ONCE .ROUTE ; Start 07/14/16 at 15:26; Stop at 15:27; Status DC Fentanyl Citrate (Fentanyl 2ml Vial) 100 mcg STK-MED ONCE .ROUTE ; Start at 15:27; Stop 07/14/16 at 15:28; Status DC Rocuronium [place] (Zemuron) 50 mg STK-MED ONCE .ROUTE ; Start 07/14/16 at 15:27 ; Stop 07/14/16 at 15:28; Status DC Dexamethasone Sodium Phosphate (Decadron) 20 mg STK-MED ONCE .ROUTE ; Start at 16:34; Stop 07/14/16 at 16:35; Status DC Desflurane (Suprane) 30 ml STK-MED ONCE IH ; Start 07/14/16 at 16:35; Stop 07/14 at 16:36; Status DC Ondansetron HCl (Zofran) 4 mg STK-MED ONCE .ROUTE ; Start 07/14/16 at 16:46; Stop 07/14/16 at 16:47; Status DC Glycopyrrolate (Robinul) 1 mg STK-MED ONCE .ROUTE ; Start 07/14/16 at 16:46; Stop 07/14/16 at 16:47; Status DC Neostigmine Methylsulfate 5 mg STK-MED ONCE .ROUTE ; Start 07/14/16 at 16:46; Stop 07/14/16 at 16:47; Status DC Fentanyl Citrate (Fentanyl 2ml Vial) 100 mcg STK-MED ONCE .ROUTE ; Start at 16:57; Stop 07/14/16 at 16:58; Status DC Insulin Aspart 10 units 10 units 1X ONCE SQ Last administered on 07/15/16 08: 26; Start 07/15/16 at 08:30; Stop 07/15/16 at 08:31; Status DC Cefazolin Sodium/ Dextrose (Ancef 2gm Premix) 50 ml @ 100 mls/hr 1X PREOP PRN IV PER PROTOCOL Last administered on 07/16/16 05:56; Start 07/16/16 at 10:30; Stop 07/16/16 at 18:00; Status DC Insulin Aspart (Novolog) 15 units 1X ONCE SQ Last administered on 07/15/16 12 :25; Start 07/15/16 at 12:15; Stop 07/15/16 at 12:16; Status DC Warfarin Sodium (Coumadin - No Dose Today) 1 each 1X WARF ONCE MC Last administered on 07/15/16 16:00; Start 07/15/16 at 16:00; Stop 07/15/16 at 16:01 ; Status DC Rocuronium [place] (Zemuron) 50 mg STK-MED ONCE .ROUTE ; Start 07/16/16 at 09:56 ; Stop 07/16/16 at 09:57; Status DC Dexamethasone Sodium Phosphate (Decadron) 20 mg STK-MED ONCE .ROUTE ; Start at 09:58; Stop 07/16/16 at 09:59; Status DC Ondansetron HCl 4 mg 4 mg STK-MED ONCE .ROUTE ; Start 07/16/16 at 09:58; Stop at 09:59; Status DC Propofol (Diprivan) 20 ml @ As Directed STK-MED ONCE IV ; Start 07/16/16 at 09: 58; Stop 07/16/16 at 09:59; Status DC Lidocaine HCl 100 mg STK-MED ONCE .ROUTE ; Start 07/16/16 at 09:58; Stop at 09:59; Status DC Fentanyl Citrate (Fentanyl 5ml Vial) 250 mcg STK-MED ONCE .ROUTE ; Start at 09:58; Stop 07/16/16 at 09:59; Status DC Midazolam HCl (Versed) 2 mg STK-MED ONCE .ROUTE ; Start 07/16/16 at 09:58; Stop 07/16/16 at 09:59; Status DC Famotidine (Pepcid) 20 mg STK-MED ONCE .ROUTE ; Start 07/16/16 at 09:58; Stop at 09:59; Status DC Succinylcholine Chloride (Anectine) 200 mg STK-MED ONCE .ROUTE ; Start 07/16/16 at 10:10; Stop 07/16/16 at 10:11; Status DC Succinylcholine Chloride 200 mg 200 mg STK-MED ONCE .ROUTE ; Start 07/16/16 at 10:26; Stop 07/16/16 at 10:27; Status DC Acetaminophen (Ofirmev) 100 ml @ As Directed STK-MED ONCE IV ; Start 07/16/16 at 11:49; Stop 07/16/16 at 11:50; Status DC Glycopyrrolate (Robinul) 1 mg STK-MED ONCE .ROUTE ; Start 07/16/16 at 11:55; Stop 07/16/16 at 11:56; Status DC Neostigmine Methylsulfate 5 mg STK-MED ONCE .ROUTE ; Start 07/16/16 at 11:55; Stop 07/16/16 at 11:56; Status DC Ondansetron HCl (Zofran) 4 mg PRN Q6HRS PRN IV Nausea; Start 07/16/16 at 12:30 ; Stop 07/17/16 at 12:29 Fentanyl Citrate (Fentanyl 2ml Vial) 25 mcg PRN Q5MIN PRN IV MILD PAIN; Start 07/16/16 at 12:30; Stop 07/17/16 at 12:29 Fentanyl Citrate (Fentanyl 2ml Vial) 50 mcg PRN Q5MIN PRN IV MODERATE PAIN; Start 07/16/16 at 12:30; Stop 07/17/16 at 12:29 Morphine Sulfate 1 mg 1 mg PRN Q10MIN PRN IV SEVERE PAIN; Start 07/16/16 at 12: 30; Stop 07/17/16 at 12:29 Lactated Ringer's (Iv Lactated Ringers) 1,000 ml @ 30 mls/hr Q24H IV ; Start at 12:28; Stop 07/17/16 at 00:27; Status DC Lidocaine HCl 2 ml 1X PRN PRN ID IV START; Start 07/16/16 at 12:30; Stop at 12:29 Hydromorphone HCl (Dilaudid) 0.5 mg PRN Q10MIN PRN IV SEV PAIN,Second choice Last administered on 07/16/16 14:38; Start 07/16/16 at 12:30; Stop 07/17/16 at 12:29 Prochlorperazine Edisylate (Compazine) 5 mg PACU PRN PRN IV NAUSEA; Start 07/16 at 12:30; Stop 07/17/16 at 12:29 Warfarin Sodium (Coumadin) 10 mg 1X WARF ONCE PO Last administered on 15:58; Start 07/16/16 at 16:00; Stop 07/16/16 at 16:01; Status DC Ondansetron HCl (Zofran) 4 mg PRN Q6HRS PRN IV Nausea; Start 07/19/16 at 07:00 ; Stop 07/20/16 at 06:59 Fentanyl Citrate (Fentanyl 2ml Vial) 25 mcg PRN Q5MIN PRN IV MILD PAIN; Start 07/19/16 at 07:00; Stop 07/20/16 at 06:59 Fentanyl Citrate (Fentanyl 2ml Vial) 50 mcg PRN Q5MIN PRN IV MODERATE PAIN; Start 07/19/16 at 07:00; Stop 07/20/16 at 06:59 Morphine Sulfate 1 mg 1 mg PRN Q10MIN PRN IV SEVERE PAIN; Start 07/19/16 at 07: 00; Stop 07/20/16 at 06:59 Lactated Ringer's (Iv Lactated Ringers) 1,000 ml @ 0 mls/hr Q0M IV ; Start at 07:00; Stop 07/19/16 at 18:59 Lidocaine HCl 2 ml 1X PRN PRN ID IV START; Start 07/19/16 at 07:00; Stop at 06:59 Hydromorphone HCl (Dilaudid) 0.5 mg PRN Q10MIN PRN IV SEVERE PAIN, Second choice; Start 07/19/16 at 07:00; Stop 07/20/16 at 06:59 Prochlorperazine Edisylate (Compazine) 5 mg PACU PRN PRN IV NAUSEA; Start 07/19 at 07:00; Stop 07/20/16 at 06:59 Sodium Chloride (Normal Saline Flush) 10 ml QSHIFT PRN IV AFTER MEDS AND BLOOD DRAWS; Start 07/17/16 at 12:00 Lidocaine HCl (Xylocaine 2% Topical 5gm Tube) 1 silvia 1X ONCE TP ; Start at 12:00; Stop 07/17/16 at 12:01 Lidocaine HCl (Viscous Lidocaine) 15 ml 1X ONCE MM ; Start 07/17/16 at 12:00; Stop 07/17/16 at 12:01 Benzocaine (Hurricaine One) 1 spray 1X ONCE MM ; Start 07/17/16 at 12:00; Stop 07/17/16 at 12:01 Active Scripts Active Phenergan (Promethazine HCl) 25 Mg Supp.rect 25 Mg RC Q8HRS PRN Zofran Odt (Ondansetron) 4 Mg Tab.rapdis 1 Tab SL Q8HRS PRN Vitals/I & O Vital Sign - Last 24 Hours 07/16/16 07/16/16 07/16/16 07/16/16 12:21 12:30 12:51 13:06 Temp 98.4 98.4 98.6 98.4 98.4 98.6 Pulse 89 16 82 Resp 16 16 18 B/P 130/54 135/54 132/67 Pulse Ox 95 97 95 O2 Delivery Nasal Cannula Nasal Cannula Nasal Cannula Nasal Cannula O2 Flow Rate 4 2 2 2 07/16/16 07/16/16 07/16/16 07/16/16 14:38 15:00 15:21 19:00 Temp 97.5 99.1 97.5 99.1 Pulse 82 87 Resp 18 B/P 112/56 131/67 Pulse Ox 98 95 97 93 O2 Delivery Nasal Cannula Room Air Nasal Cannula O2 Flow Rate 1.0 2.0 2.0 2.0 07/16/16 07/16/16 07/16/16 07/17/16 20:00 20:56 23:00 03:00 Temp 100.8 99.1 100.8 99.1 Pulse 82 88 Resp 18 B/P 138/81 148/76 Pulse Ox 93 96 97 O2 Delivery Nasal Cannula Nasal Cannula Nasal Cannula Nasal Cannula O2 Flow Rate 2.0 2.0 2.0 2.0 07/17/16 07/17/16 07/17/16 07/17/16 05:41 06:41 07:00 08:00 Temp 98.6 98.6 Pulse 91 Resp 18 B/P 123/77 Pulse Ox 97 97 97 O2 Delivery Nasal Cannula Nasal Cannula Room Air Room Air O2 Flow Rate 2.0 2.0 07/17/16 11:12 Temp 97.9 97.9 Pulse 83 Resp 18 B/P 140/68 Pulse Ox 95 O2 Delivery Room Air Intake and Output 07/16/16 07/16/16 07/17/16 15:00 23:00 07:00 Intake Total 50 ml 1320 ml Output Total 1100 ml 500 ml 2100 ml Balance -1050 ml -500 ml -780 ml CLIFFORD BURGOS MD Jul 17, 2016 11:59
[2016-07-17] MEDS ORDERED: LIDOCAINE 2% VISCOUS 15 ML SOLUTION. MM ONE (12:00)
[2016-07-17] MEDS ORDERED: 0.9 % SODIUM CHLORIDE 10 ML DISP.SYRIN. IV PRN (12:00)
[2016-07-17] MEDS ORDERED: BENZOCAINE ONE 20% MUCOSAL SPRAY. MM (12:00)
[2016-07-17] MEDS ORDERED: LIDOCAINE 2% TOPICAL JELLY 5GM TUBE. TP ONE (12:00)
--- NOTE | 2016-07-17 12:22 | PDOC ---
Infectious Disease Note Subjective Subjective Low-grade fever, Tmax 100.8 Pain controlled Wants to go home ROS ROS GEN: Denies chills, sweats CV: Denies chest pain RESP: Denies shortness of air, cough GI: Denies n/v/d Vital Sign Vital Signs Vital Signs Date Time Temp Pulse Resp B/P Pulse Ox O2 Delivery O2 Flow Rate FiO2 07/17/16 11:12 97.9 83 18 140/68 95 Room Air 97.9 07/17/16 06:41 2.0 Physical Exam PHYSICAL EXAM GENERAL: Propped up in bed, NAD LUNGS: Clear HEART: S1S2, no murmur appreciated ABD: Obese, BS present, soft, NT EXT: BLE trace edema. no cyanosis. Right shoulder wound vac in placed, covered bandaged RN STAFFING: Alert, oriented x 3, no focal neurologic deficit SKIN: No rash IV: ok Labs Lab Laboratory Tests Test 07/16/16 12:36 07/16/16 14:17 07/16/16 16:55 07/16/16 20:59 Glucose (Fingerstick) 121mg/dL (70-99) 132mg/dL (70-99) 199mg/dL (70-99) 250mg/dL (70-99) Test 07/17/16 07:03 07/17/16 07:40 07/17/16 11:02 Glucose (Fingerstick) 138mg/dL (70-99) 226mg/dL (70-99) White Blood Count 10.4x10^3/uL (4.0-11.0) Red Blood Count 3.95x10^6/uL (4.30-5.70) Hemoglobin 10.9g/dL (13.0-17.5) Hematocrit 34.0% (39.0-53.0) Mean Corpuscular Volume 86fL (79-100) Mean Corpuscular Hemoglobin 28pg (25-35) Mean Corpuscular Hemoglobin Concent 32g/dL (31-37) Red Cell Distribution Width 16.0% (11.5-14.5) Platelet Count 495x10^3/uL (140-400) Neutrophils (%) (Auto) 79% (31-73) Lymphocytes (%) (Auto) 15% (24-48) Monocytes (%) (Auto) 4% (0-9) Eosinophils (%) (Auto) 1% (0-3) Basophils (%) (Auto) 1% (0-3) Neutrophils # (Auto) 8.2x10^3uL (1.8-7.7) Lymphocytes # (Auto) 1.5x10^3/uL (1.0-4.8) Monocytes # (Auto) 0.4x10^3/uL (0.0-1.1) Eosinophils # (Auto) 0.1x10^3/uL (0.0-0.7) Basophils # (Auto) 0.1x10^3/uL (0.0-0.2) Prothrombin Time 15.9SEC (11.7-14.0) Prothromb Time International Ratio 1.4 (0.8-1.1) Sodium Level 141mmol/L (136-145) Potassium Level 4.7mmol/L (3.5-5.1) Chloride Level 104mmol/L (98-107) Carbon Dioxide Level 29mmol/L (21-32) Anion Gap 8 (6-14) Blood Urea Nitrogen 16mg/dL (8-26) Creatinine 0.7mg/dL (0.7-1.3) Estimated GFR (Cockcroft-Gault) 117.1 Glucose Level 153mg/dL (70-99) Calcium Level 8.2mg/dL (8.5-10.1) Phosphorus Level 4.0mg/dL (2.6-4.7) Creatine Kinase 26U/L (39-308) Albumin 2.1g/dL (3.4-5.0) Objective Assessment Fever MSSA sepsis TTE neg veg. 07/12. BC + 07/11, 07/14 Septic arthritis with abscess of left shoulder. MSSA -s/p incision and drainage of abscess, excisional debridement and ac joint arthrotomy, 07/14 -Returned to OR, excisional debridement, irrigation and wound vac exchange Staph aureus in urine ? Septic emboli in UE Leukocytosis - better DM Obesity Pulm nodule ? Incidental mass in abd Plan Plan of Care Cont Cefazolin f/u repeat BC from this morning HARISH cancelled. Pt would not consent. spoke w/ Gogo, SUPERVISOR ADVICE cardiology needs tighter glucose control Return to OR Tuesday for wound vac exchange and possible closure Patient is feeling frustrated with care. He is wanting to leave. I explained to patient and his the importance of HARISH to r/o endocarditis; the need for long-term antibiotics; and will need to wait for neg BC before PICC placement. D/w D/w Dr Jones Patient seen and examined. Chart reviewed in detail. Case discussed with CUSTOMER SERVICE CONSULTANT. Agree with above plan ALYSSA MYLES APRN Jul 17, 2016 12:21 CARMINE SALMON MD Jul 17, 2016 14:55
[2016-07-17 15:03] VITALS: BP 136/65
[2016-07-17 19:00] VITALS: BP 138/72
[2016-07-17] MEDS: INSULIN DETEMIR 300 UNITS/3 ML INSULN.PEN. SQ SCH (21:02)
[2016-07-18 03:00] VITALS: BP 137/63
[2016-07-18] MEDS: NORMAL SALINE IV SCH ×3 (05:32→21:06)
[2016-07-18] MEDS: CEFAZOLIN SODIUM IV SCH ×3 (05:32→21:06)
[2016-07-18 07:00] VITALS: BP 143/68
--- NOTE | 2016-07-18 07:24 | PDOC ---
PROGRESS NOTES Subjective Subjective Problems overnight: no acute issues o/n. pt able to ambulate in the [place] yesterday, is feeling much better. BG better controlled. MSSA blood , wound, and urine cultures. Awaiting HARISH tomorrow. [place] output 150 cc Objective Vital Signs Vital Signs Date Time Temp Pulse Resp B/P Pulse Ox O2 Delivery O2 Flow Rate FiO2 07/18/16 03:00 98.6 91 18 137/63 95 Room Air 98.6 07/17/16 06:41 2.0 Physical Exam L shoulder: wound vac to suction, cdi. left arm and paratrapezial swelling has gone down significantly. able to move left arm much better with minimal pain. Labs Laboratory Tests Test 07/16/16 07:37 07/16/16 12:36 07/16/16 14:17 07/16/16 16:55 Glucose (Fingerstick) 151mg/dL (70-99) 121mg/dL (70-99) 132mg/dL (70-99) 199mg/dL (70-99) Test 07/16/16 20:59 07/17/16 07:03 07/17/16 07:40 07/17/16 11:02 Glucose (Fingerstick) 250mg/dL (70-99) 138mg/dL (70-99) 226mg/dL (70-99) White Blood Count 10.4x10^3/uL (4.0-11.0) Red Blood Count 3.95x10^6/uL (4.30-5.70) Hemoglobin 10.9g/dL (13.0-17.5) Hematocrit 34.0% (39.0-53.0) Mean Corpuscular Volume 86fL (79-100) Mean Corpuscular Hemoglobin 28pg (25-35) Mean Corpuscular Hemoglobin Concent 32g/dL (31-37) Red Cell Distribution Width 16.0% (11.5-14.5) Platelet Count 495x10^3/uL (140-400) Neutrophils (%) (Auto) 79% (31-73) Lymphocytes (%) (Auto) 15% (24-48) Monocytes (%) (Auto) 4% (0-9) Eosinophils (%) (Auto) 1% (0-3) Basophils (%) (Auto) 1% (0-3) Neutrophils # (Auto) 8.2x10^3uL (1.8-7.7) Lymphocytes # (Auto) 1.5x10^3/uL (1.0-4.8) Monocytes # (Auto) 0.4x10^3/uL (0.0-1.1) Eosinophils # (Auto) 0.1x10^3/uL (0.0-0.7) Basophils # (Auto) 0.1x10^3/uL (0.0-0.2) Prothrombin Time 15.9SEC (11.7-14.0) Prothromb Time International Ratio 1.4 (0.8-1.1) Sodium Level 141mmol/L (136-145) Potassium Level 4.7mmol/L (3.5-5.1) Chloride Level 104mmol/L (98-107) Carbon Dioxide Level 29mmol/L (21-32) Anion Gap 8 (6-14) Blood Urea Nitrogen 16mg/dL (8-26) Creatinine 0.7mg/dL (0.7-1.3) Estimated GFR (Cockcroft-Gault) 117.1 Glucose Level 153mg/dL (70-99) Calcium Level 8.2mg/dL (8.5-10.1) Phosphorus Level 4.0mg/dL (2.6-4.7) Creatine Kinase 26U/L (39-308) Albumin 2.1g/dL (3.4-5.0) Test 07/17/16 17:07 07/17/16 20:52 Glucose (Fingerstick) 290mg/dL (70-99) 232mg/dL (70-99) Laboratory Tests Test 07/17/16 07:40 07/17/16 11:02 07/17/16 17:07 07/17/16 20:52 White Blood Count 10.4x10^3/uL (4.0-11.0) Red Blood Count 3.95x10^6/uL (4.30-5.70) Hemoglobin 10.9g/dL (13.0-17.5) Hematocrit 34.0% (39.0-53.0) Mean Corpuscular Volume 86fL (79-100) Mean Corpuscular Hemoglobin 28pg (25-35) Mean Corpuscular Hemoglobin Concent 32g/dL (31-37) Red Cell Distribution Width 16.0% (11.5-14.5) Platelet Count 495x10^3/uL (140-400) Neutrophils (%) (Auto) 79% (31-73) Lymphocytes (%) (Auto) 15% (24-48) Monocytes (%) (Auto) 4% (0-9) Eosinophils (%) (Auto) 1% (0-3) Basophils (%) (Auto) 1% (0-3) Neutrophils # (Auto) 8.2x10^3uL (1.8-7.7) Lymphocytes # (Auto) 1.5x10^3/uL (1.0-4.8) Monocytes # (Auto) 0.4x10^3/uL (0.0-1.1) Eosinophils # (Auto) 0.1x10^3/uL (0.0-0.7) Basophils # (Auto) 0.1x10^3/uL (0.0-0.2) Prothrombin Time 15.9SEC (11.7-14.0) Prothromb Time International Ratio 1.4 (0.8-1.1) Sodium Level 141mmol/L (136-145) Potassium Level 4.7mmol/L (3.5-5.1) Chloride Level 104mmol/L (98-107) Carbon Dioxide Level 29mmol/L (21-32) Anion Gap 8 (6-14) Blood Urea Nitrogen 16mg/dL (8-26) Creatinine 0.7mg/dL (0.7-1.3) Estimated GFR (Cockcroft-Gault) 117.1 Glucose Level 153mg/dL (70-99) Calcium Level 8.2mg/dL (8.5-10.1) Phosphorus Level 4.0mg/dL (2.6-4.7) Creatine Kinase 26U/L (39-308) Albumin 2.1g/dL (3.4-5.0) Glucose (Fingerstick) 226mg/dL (70-99) 290mg/dL (70-99) 232mg/dL (70-99) Assessment Assessment POD# 2, S/P I &D left septic AC joint arthritis and abscess Problems: Plan Plan of Care -Cultures growing mssa, continue antibiotics per ID -Plan for return to OR tomorrow for additional debridement, possible wound vac vs closure with packing He would be ok from my standpoint to go home with the packing and dc himself over the next few days. I spoke to him at length about the HARISH and the importance of it. Hopefully this can be coordinated with the OR tomorrow as well. Anticipate his I &D will not go before 12, so hopefully HARISH before then. MONALISA PINTO MD Jul 18, 2016 07:23
[2016-07-18] MEDS: INSULIN ASPART 300 UNITS/3 ML INSULN.PEN SQ SCH ×6 (07:30→17:21)
[2016-07-18] MEDS: HYDROCODONE/APAP 5/325MG TABLET. PO PRN ×2 (08:19→21:07)
[2016-07-18] MEDS: GUAIFENESIN ER 600 MG TABLET.ER PO SCH ×2 (08:19→21:06)
[2016-07-18] MEDS: DOCUSATE SODIUM 100 MG CAPSULE PO SCH (08:20)
[2016-07-18] MEDS: POLYETHYLENE GLYCOL 3350 17 GM PACKET. PO SCH ×2 (08:20→21:00)
[2016-07-18] MEDS: ENOXAPARIN ** NOTE DOSE ** SYRINGE SQ SCH ×2 (08:20→21:00)
[2016-07-18 08:53] LABS: BASO # 0.1 x10^3/uL (0.0-0.2); BASO % 1 % (0-3); EOS % 1 % (0-3); HEMATOCRIT 33.2 % (39.0-53.0); HEMOGLOBIN 10.8 g/dL (13.0-17.5); LYMPH # 1.4 x10^3/uL (1.0-4.8); LYMPH % 16 % (24-48); MEAN CORPUSCULAR HEMOGLOBIN 28 pg (25-35); MEAN CORPUSCULAR HGB CONC 33 g/dL (31-37); MEAN CORPUSCULAR VOLUME 84 fL (79-100); MONO % 4 % (0-9); NEUT % 78 % (31-73); PLATELET COUNT 410 x10^3/uL (140-400); RED BLOOD COUNT 3.94 x10^6/uL (4.30-5.70); RED CELL DISTRIBUTION WIDTH 15.8 % (11.5-14.5); WHITE BLOOD COUNT 8.9 x10^3/uL (4.0-11.0)
[2016-07-18 09:09] LABS: INR 1.3 (0.8-1.1); PROTHROMBIN TIME PATIENT 15.4 SEC (11.7-14.0)
[2016-07-18 09:11] LABS: CALCIUM 8.5 mg/dL (8.5-10.1); CREATININE 0.7 mg/dL (0.7-1.3); GFR 117.1; POTASSIUM 4.4 mmol/L (3.5-5.1)
[2016-07-18 11:00] VITALS: BP_SYST 134; BP_SYST 136; BP_DIAS 62; BP_DIAS 72
[2016-07-18 11:04] LABS: NEG OBC FOB NEG; POS OBC FOB POS
--- NOTE | 2016-07-18 12:39 | PDOC ---
Infectious Disease Note Subjective Subjective No fever last 24 hours Pain controlled re-considered HARISH and additional surgery ROS ROS GEN: Denies fevers, chills, sweats HEENT: Denies sore throat CV: Denies chest pain RESP: Denies shortness of air, cough GI: Denies n/v/d Vital Sign Vital Signs Vital Signs Date Time Temp Pulse Resp B/P Pulse Ox O2 Delivery O2 Flow Rate FiO2 07/18/16 11:00 97.6 74 18 136/62 97 Room Air 97.6 Physical Exam PHYSICAL EXAM GENERAL: up in chair, eating LUNGS: Clear HEART: S1S2, no murmur appreciated ABD: Obese, BS present, soft, NT EXT: BLE trace edema. no cyanosis. Right shoulder wound vac in placed, covered bandaged able to shrugged shoulders GROCERY CHECKER: Alert, oriented x 3, no focal neurologic deficit SKIN: No rash IV: ok Labs Lab Laboratory Tests Test 07/17/16 17:07 07/17/16 20:52 07/18/16 07:07 07/18/16 08:30 Glucose (Fingerstick) 290mg/dL (70-99) 232mg/dL (70-99) 131mg/dL (70-99) White Blood Count 8.9x10^3/uL (4.0-11.0) Red Blood Count 3.94x10^6/uL (4.30-5.70) Hemoglobin 10.8g/dL (13.0-17.5) Hematocrit 33.2% (39.0-53.0) Mean Corpuscular Volume 84fL (79-100) Mean Corpuscular Hemoglobin 28pg (25-35) Mean Corpuscular Hemoglobin Concent 33g/dL (31-37) Red Cell Distribution Width 15.8% (11.5-14.5) Platelet Count 410x10^3/uL (140-400) Neutrophils (%) (Auto) 78% (31-73) Lymphocytes (%) (Auto) 16% (24-48) Monocytes (%) (Auto) 4% (0-9) Eosinophils (%) (Auto) 1% (0-3) Basophils (%) (Auto) 1% (0-3) Neutrophils # (Auto) 6.9x10^3uL (1.8-7.7) Lymphocytes # (Auto) 1.4x10^3/uL (1.0-4.8) Monocytes # (Auto) 0.4x10^3/uL (0.0-1.1) Eosinophils # (Auto) 0.1x10^3/uL (0.0-0.7) Basophils # (Auto) 0.1x10^3/uL (0.0-0.2) Prothrombin Time 15.4SEC (11.7-14.0) Prothromb Time International Ratio 1.3 (0.8-1.1) Sodium Level 140mmol/L (136-145) Potassium Level 4.4mmol/L (3.5-5.1) Chloride Level 105mmol/L (98-107) Carbon Dioxide Level 31mmol/L (21-32) Anion Gap 4 (6-14) Blood Urea Nitrogen 13mg/dL (8-26) Creatinine 0.7mg/dL (0.7-1.3) Estimated GFR (Cockcroft-Gault) 117.1 Glucose Level 200mg/dL (70-99) Calcium Level 8.5mg/dL (8.5-10.1) Test 07/18/16 09:44 07/18/16 11:23 Stool Occult Blood Negative (NEG) Glucose (Fingerstick) 265mg/dL (70-99) Micro BLOOD CULTURE Preliminary NO GROWTH AFTER 1 DAY Objective Assessment Fever, better MSSA sepsis TTE neg veg. 07/12. BC + 07/11, 07/14 and NGTD 07/17 Septic arthritis with abscess of left shoulder. MSSA -s/p incision and drainage of abscess, excisional debridement and ac joint arthrotomy, 07/14 -Returned to OR, excisional debridement, irrigation and wound vac exchange Staph aureus in urine ? Septic emboli in UE Leukocytosis - better DM Obesity Pulm nodule ? Incidental mass in abd Plan Plan of Care Continue Cefazolin Repeat BC from 07/17 NGTD. Continue to hold PICC placement for now. Await HARISH. notified cardiology pt re-considered test needs tighter glucose control Return to OR Tuesday for wound vac exchange and possible closure D/w Patient seen and examined. Chart reviewed. Case discussed with WRAPPER STRIPPER. Agree with above plan ALYSSA MYLES APRN Jul 18, 2016 12:39 CARMINE SALMON MD Jul 18, 2016 17:15
[2016-07-18 15:00] VITALS: BP 140/68
[2016-07-18 19:00] VITALS: BP 148/70
[2016-07-18] MEDS: INSULIN DETEMIR 300 UNITS/3 ML INSULN.PEN. SQ SCH (21:16)
--- NOTE | 2016-07-18 22:25 | PDOC ---
PROGRESS NOTES Chief Complaint Chief Complaint Shoulder pain Septic joint Bronchitis ASSESSMENT AND PLAN: 1. Septic L shoulder joint: s/p I&D in OR on 07/[address] Wallace. planned OR in AM for recheck. 2. Sepsis: resolved. blood cultures with MSSA on 07/11 and 07/14. TTE suspicious, but pt declined HARISH last week, now amenable; scheduled for AM. 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 anticipate Abx regimen at minimum 4 weeks. Abx as per ID service; consider pt needs to return to work [employer] 3. Pain control: has IV morphine; reluctant to even take PO meds 4. NELIDA: PoA, vasomotor. now resolved 5. Hyponatremia: POA. now resolved 6. DM2: poor control at home (HgbA1c 11), fair control here. on long- and short-acting insulin plus ISS 7. UTI: POA. culture with MSSA 8. Bronchitis: POA. essentially resolved. minor cough persisting 9. LLL lung nodule: OP F/U 10. 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 switch to thrombin inhibitor before going home 11. Hypoalbuminemia: severe, in BMI 38. ? acute inflammation, malnutrition vs renal losses. supplements 12. Obesity - BMI 38 History of Present Illness History of Present Illness Vitals Vitals Vital Signs Date Time Temp Pulse Resp B/P Pulse Ox O2 Delivery O2 Flow Rate FiO2 07/18/16 21:07 96 Room Air 07/18/16 19:00 98.5 98 20 148/70 98.5 Physical Exam General: Alert, Oriented X3, Cooperative, No acute distress Heart: Regular rate, No murmurs Lungs: Clear, Other (No wheezing) Abdomen: Soft, No tenderness Extremities: Other (left shoulder, wound vac in place) Skin: No rashes, No breakdown, Other Labs LABS Laboratory Tests Test 07/18/16 07:07 07/18/16 08:30 07/18/16 09:44 07/18/16 11:23 Glucose (Fingerstick) 131mg/dL (70-99) 265mg/dL (70-99) White Blood Count 8.9x10^3/uL (4.0-11.0) Red Blood Count 3.94x10^6/uL (4.30-5.70) Hemoglobin 10.8g/dL (13.0-17.5) Hematocrit 33.2% (39.0-53.0) Mean Corpuscular Volume 84fL (79-100) Mean Corpuscular Hemoglobin 28pg (25-35) Mean Corpuscular Hemoglobin Concent 33g/dL (31-37) Red Cell Distribution Width 15.8% (11.5-14.5) Platelet Count 410x10^3/uL (140-400) Neutrophils (%) (Auto) 78% (31-73) Lymphocytes (%) (Auto) 16% (24-48) Monocytes (%) (Auto) 4% (0-9) Eosinophils (%) (Auto) 1% (0-3) Basophils (%) (Auto) 1% (0-3) Neutrophils # (Auto) 6.9x10^3uL (1.8-7.7) Lymphocytes # (Auto) 1.4x10^3/uL (1.0-4.8) Monocytes # (Auto) 0.4x10^3/uL (0.0-1.1) Eosinophils # (Auto) 0.1x10^3/uL (0.0-0.7) Basophils # (Auto) 0.1x10^3/uL (0.0-0.2) Prothrombin Time 15.4SEC (11.7-14.0) Prothromb Time International Ratio 1.3 (0.8-1.1) Sodium Level 140mmol/L (136-145) Potassium Level 4.4mmol/L (3.5-5.1) Chloride Level 105mmol/L (98-107) Carbon Dioxide Level 31mmol/L (21-32) Anion Gap 4 (6-14) Blood Urea Nitrogen 13mg/dL (8-26) Creatinine 0.7mg/dL (0.7-1.3) Estimated GFR (Cockcroft-Gault) 117.1 Glucose Level 200mg/dL (70-99) Calcium Level 8.5mg/dL (8.5-10.1) Stool Occult Blood Negative (NEG) Test 07/18/16 17:03 07/18/16 20:55 Glucose (Fingerstick) 229mg/dL (70-99) 198mg/dL (70-99) Comment Review of Relevant . Labs Laboratory Tests Test 07/17/16 07:03 07/17/16 07:40 07/17/16 11:02 07/17/16 17:07 Glucose (Fingerstick) 138mg/dL (70-99) 226mg/dL (70-99) 290mg/dL (70-99) White Blood Count 10.4x10^3/uL (4.0-11.0) Red Blood Count 3.95x10^6/uL (4.30-5.70) Hemoglobin 10.9g/dL (13.0-17.5) Hematocrit 34.0% (39.0-53.0) Mean Corpuscular Volume 86fL (79-100) Mean Corpuscular Hemoglobin 28pg (25-35) Mean Corpuscular Hemoglobin Concent 32g/dL (31-37) Red Cell Distribution Width 16.0% (11.5-14.5) Platelet Count 495x10^3/uL (140-400) Neutrophils (%) (Auto) 79% (31-73) Lymphocytes (%) (Auto) 15% (24-48) Monocytes (%) (Auto) 4% (0-9) Eosinophils (%) (Auto) 1% (0-3) Basophils (%) (Auto) 1% (0-3) Neutrophils # (Auto) 8.2x10^3uL (1.8-7.7) Lymphocytes # (Auto) 1.5x10^3/uL (1.0-4.8) Monocytes # (Auto) 0.4x10^3/uL (0.0-1.1) Eosinophils # (Auto) 0.1x10^3/uL (0.0-0.7) Basophils # (Auto) 0.1x10^3/uL (0.0-0.2) Prothrombin Time 15.9SEC (11.7-14.0) Prothromb Time International Ratio 1.4 (0.8-1.1) Sodium Level 141mmol/L (136-145) Potassium Level 4.7mmol/L (3.5-5.1) Chloride Level 104mmol/L (98-107) Carbon Dioxide Level 29mmol/L (21-32) Anion Gap 8 (6-14) Blood Urea Nitrogen 16mg/dL (8-26) Creatinine 0.7mg/dL (0.7-1.3) Estimated GFR (Cockcroft-Gault) 117.1 Glucose Level 153mg/dL (70-99) Calcium Level 8.2mg/dL (8.5-10.1) Phosphorus Level 4.0mg/dL (2.6-4.7) Creatine Kinase 26U/L (39-308) Albumin 2.1g/dL (3.4-5.0) Test 07/17/16 20:52 07/18/16 07:07 07/18/16 08:30 07/18/16 09:44 Glucose (Fingerstick) 232mg/dL (70-99) 131mg/dL (70-99) White Blood Count 8.9x10^3/uL (4.0-11.0) Red Blood Count 3.94x10^6/uL (4.30-5.70) Hemoglobin 10.8g/dL (13.0-17.5) Hematocrit 33.2% (39.0-53.0) Mean Corpuscular Volume 84fL (79-100) Mean Corpuscular Hemoglobin 28pg (25-35) Mean Corpuscular Hemoglobin Concent 33g/dL (31-37) Red Cell Distribution Width 15.8% (11.5-14.5) Platelet Count 410x10^3/uL (140-400) Neutrophils (%) (Auto) 78% (31-73) Lymphocytes (%) (Auto) 16% (24-48) Monocytes (%) (Auto) 4% (0-9) Eosinophils (%) (Auto) 1% (0-3) Basophils (%) (Auto) 1% (0-3) Neutrophils # (Auto) 6.9x10^3uL (1.8-7.7) Lymphocytes # (Auto) 1.4x10^3/uL (1.0-4.8) Monocytes # (Auto) 0.4x10^3/uL (0.0-1.1) Eosinophils # (Auto) 0.1x10^3/uL (0.0-0.7) Basophils # (Auto) 0.1x10^3/uL (0.0-0.2) Prothrombin Time 15.4SEC (11.7-14.0) Prothromb Time International Ratio 1.3 (0.8-1.1) Sodium Level 140mmol/L (136-145) Potassium Level 4.4mmol/L (3.5-5.1) Chloride Level 105mmol/L (98-107) Carbon Dioxide Level 31mmol/L (21-32) Anion Gap 4 (6-14) Blood Urea Nitrogen 13mg/dL (8-26) Creatinine 0.7mg/dL (0.7-1.3) Estimated GFR (Cockcroft-Gault) 117.1 Glucose Level 200mg/dL (70-99) Calcium Level 8.5mg/dL (8.5-10.1) Stool Occult Blood Negative (NEG) Test 07/18/16 11:23 07/18/16 17:03 07/18/16 20:55 Glucose (Fingerstick) 265mg/dL (70-99) 229mg/dL (70-99) 198mg/dL (70-99) Laboratory Tests Test 07/18/16 07:07 07/18/16 08:30 07/18/16 09:44 07/18/16 11:23 Glucose (Fingerstick) 131mg/dL (70-99) 265mg/dL (70-99) White Blood Count 8.9x10^3/uL (4.0-11.0) Red Blood Count 3.94x10^6/uL (4.30-5.70) Hemoglobin 10.8g/dL (13.0-17.5) Hematocrit 33.2% (39.0-53.0) Mean Corpuscular Volume 84fL (79-100) Mean Corpuscular Hemoglobin 28pg (25-35) Mean Corpuscular Hemoglobin Concent 33g/dL (31-37) Red Cell Distribution Width 15.8% (11.5-14.5) Platelet Count 410x10^3/uL (140-400) Neutrophils (%) (Auto) 78% (31-73) Lymphocytes (%) (Auto) 16% (24-48) Monocytes (%) (Auto) 4% (0-9) Eosinophils (%) (Auto) 1% (0-3) Basophils (%) (Auto) 1% (0-3) Neutrophils # (Auto) 6.9x10^3uL (1.8-7.7) Lymphocytes # (Auto) 1.4x10^3/uL (1.0-4.8) Monocytes # (Auto) 0.4x10^3/uL (0.0-1.1) Eosinophils # (Auto) 0.1x10^3/uL (0.0-0.7) Basophils # (Auto) 0.1x10^3/uL (0.0-0.2) Prothrombin Time 15.4SEC (11.7-14.0) Prothromb Time International Ratio 1.3 (0.8-1.1) Sodium Level 140mmol/L (136-145) Potassium Level 4.4mmol/L (3.5-5.1) Chloride Level 105mmol/L (98-107) Carbon Dioxide Level 31mmol/L (21-32) Anion Gap 4 (6-14) Blood Urea Nitrogen 13mg/dL (8-26) Creatinine 0.7mg/dL (0.7-1.3) Estimated GFR (Cockcroft-Gault) 117.1 Glucose Level 200mg/dL (70-99) Calcium Level 8.5mg/dL (8.5-10.1) Stool Occult Blood Negative (NEG) Test 07/18/16 17:03 07/18/16 20:55 Glucose (Fingerstick) 229mg/dL (70-99) 198mg/dL (70-99) Microbiology 07/17/16 Blood Culture - Preliminary, Resulted NO GROWTH AFTER 1 DAY 07/09/16 Urine Culture - Final, Complete 07/09/16 Urine Culture Result 1 (EMILI) - Final, Complete 07/09/16 Antimicrobic Susceptibility - Final, Complete 07/14/16 Anaerobic/Aerobic Culture - Preliminary, Resulted 07/14/16 Anaerobic Culture Result 1 (EMILI) - Preliminary, Resulted 07/14/16 Aerobic Culture - Final, Resulted 07/14/16 Aerobic Culture Result 1 (EMILI) - Final, Resulted 07/14/16 Antimicrobic Susceptibility - Final, Resulted Medications Current Medications Sodium Chloride (Iv Sodium Chloride 0.9% 1000ml Bag) 1,000 ml @ 1,000 mls/hr Q1H IV Last administered on 07/09/16t 19:34; Start 07/09/16 at 19:18; Stop at 20:17; Status DC Hydromorphone HCl (Dilaudid) 2 mg 1X ONCE IV ; Start 07/09/16 at 19:30; Stop at 19:30; Status DC Ondansetron HCl (Zofran) 4 mg 1X ONCE IV Last administered on 07/09/16 19:33 ; Start 07/09/16 at 19:30; Stop 07/09/16 at 19:31; Status DC Hydromorphone HCl (Dilaudid) 1 mg 1X ONCE IV Last administered on 07/09/16 19 :33; Start 07/09/16 at 19:30; Stop 07/09/16 at 19:31; Status DC Ondansetron HCl (Zofran) 4 mg PRN Q8HRS PRN IV NAUSEA/VOMITING; Start 07/09/16 at 20:30; Stop 07/09/16 at 21:00; Status DC Morphine Sulfate 4 mg 4 mg PRN Q2HR PRN IV PAIN Last administered on 07/10/16 06:36; Start 07/09/16 at 20:30; Stop 07/10/16 at 13:00; Status DC Sodium Chloride (Iv Sodium Chloride 0.9% 1000ml Bag) 1,000 ml @ 150 mls/hr Q6H40M IV Last administered on 07/09/16 20:41; Start 07/09/16 at 20:24; Stop 07/10/16 at 15:29; Status DC Acetaminophen (Tylenol) 650 mg PRN Q4HRS PRN PO FEVER; Start 07/09/16 at 20:30 ; Stop 07/09/16 at 21:00; Status DC Acetaminophen (Tylenol) 650 mg PRN Q6HRS PRN PO FEVER; Start 07/09/16 at 21:00 ; Stop 07/10/16 at 15:28; Status DC Ondansetron HCl 4 mg 4 mg PRN Q6HRS PRN IV NAUSEA/VOMITING Last administered on 07/15/16 22:34; Start 07/09/16 at 21:00 Sodium Chloride (Iv Sodium Chloride 0.9% 1000ml Bag) 1,000 ml @ 150 mls/hr Q6H40M IV Last administered on 07/13/16 17:59; Start 07/09/16 at 21:00; Stop 07/13/16 at 19:27; Status DC Insulin Aspart (Novolog) 0-9 UNITS TIDWMEALS SQ Last administered on 07/18/16 17:20; Start 07/10/16 at 08:00 Dextrose 12.5 gm 12.5 gm PRN Q15MIN PRN IV SEE COMMENTS; Start 07/09/16 at 21: 00 Levofloxacin/ Dextrose (LEVAQUIN 500mg PREMIX) 100 ml @ 100 mls/hr Q24H IV Last administered on 07/12/16 02:49; Start 07/09/16 at 22:00; Stop 07/12/16 at 10:37; Status DC Guaifenesin (Mucinex) 600 mg BID PO Last administered on 07/18/16 21:06; Start 07/09/16 at 21:00 Albuterol Sulfate 2.5 mg 2.5 mg PRN Q4HRS PRN NEB SHORTNESS OF BREATH; Start at 21:00 Sodium Chloride (Iv Sodium Chloride 0.9% 1000ml Bag) 1,000 ml @ 0 mls/hr 1X ONCE IV Last administered on 07/10/16 10:27; Start 07/10/16 at 10:30; Stop at 10:31; Status DC Alprazolam (Xanax) 0.5 mg PRN Q8HRS PRN PO ANXIETY / AGITATION Last administered on 07/13/16 00:52; Start 07/10/16 at 13:00 Acetaminophen/ Hydrocodone Bitart (Lortab 5/325) 1 tab PRN Q6HRS PRN PO MODERATE - SEVERE PAIN Last administered on 07/18/16 21:07; Start 07/10/16 at 13:00 Acetaminophen (Tylenol) 650 mg PRN Q6HRS PRN PO MILD PAIN / TEMP Last administered on 07/14/16 00:08; Start 07/10/16 at 13:00 Heparin Sodium (Porcine) 5000 unit 5,000 unit Q8HRS SQ Last administered on 14:02; Start 07/10/16 at 14:00; Stop 07/11/16 at 22:55; Status DC Magnesium Sulfate/ Dextrose (Magnesium Sulfate PREMIX 2GM) 50 ml @ 25 mls/hr PRN DAILY PRN IV for Mag < 1.7 on am labs; Start 07/10/16 at 14:00 Diphenhydramine HCl (Benadryl) 25 mg PRN Q6HRS PRN IVP ITCHING Last administered on 07/13/16 01:52; Start 07/11/16 at 01:30 Lorazepam 2 mg 2 mg PRN Q4HRS PRN IV ANXIETY / AGITATION Last administered on 10:19; Start 07/11/16 at 01:30 Albumin Human (Albuminar) 100 ml @ 100 mls/hr TID IV Last administered on 07/13 13:56; Start 07/11/16 at 14:00; Stop 07/13/16 at 09:59; Status DC Insulin Aspart (Novolog) 10 units TIDAC SQ Last administered on 07/12/16 08:46 ; Start 07/11/16 at 12:30; Stop 07/12/16 at 09:17; Status DC Insulin Detemir 25 units 25 units QHS SQ Last administered on 07/12/16 01:48; Start 07/11/16 at 21:00; Stop 07/12/16 at 09:17; Status DC Heparin Sodium/ Dextrose 500 ml @ 0 mls/hr CONT PRN IV SEE I/O RECORD Last administered on 07/13/16 12:12; Start 07/11/16 at 23:00; Stop 07/13/16 at 12:32 ; Status DC Heparin Sodium (Porcine) 3,800 unit PRN Q6HRS PRN IV FOR UFH LEVEL LESS THAN 0.2 Last administered on 07/12/16 19:37; Start 07/11/16 at 23:00; Stop at 12:32; Status DC Heparin Sodium (Porcine) 1,900 unit PRN Q6HRS PRN IV FOR UFH LEVEL 0.2 - 0.29 Last administered on 07/13/16 02:33; Start 07/11/16 at 23:00; Stop 07/13/16 at 12:32; Status DC Warfarin Sodium (Coumadin Per Pharmacy) 1 each PRN DAILY PRN MC PER PROTOCOL Last administered on 07/17/16 13:43; Start 07/11/16 at 23:00 Warfarin Sodium (Coumadin) 5 mg 1X ONCE PO Last administered on 07/12/16 01: 45; Start 07/12/16 at 00:15; Stop 07/12/16 at 00:16; Status DC Info (Anti-Coagulation Monitoring By Pharmacy) 1 each PRN DAILY PRN MC SEE COMMENTS Last administered on 07/16/16 14:36; Start 07/11/16 at 23:45 Heparin Sodium (Porcine) 10,000 unit 1X ONCE IV Last administered on 01:48; Start 07/12/16 at 01:15; Stop 07/12/16 at 01:16; Status DC Insulin Aspart (Novolog) 12 units TIDAC SQ Last administered on 07/13/16 12:08 ; Start 07/12/16 at 11:30; Stop 07/13/16 at 12:32; Status DC Insulin Detemir (Levemir) 30 units QHS SQ Last administered on 07/12/16 21:07 ; Start 07/12/16 at 21:00; Stop 07/13/16 at 12:32; Status DC Tramadol HCl (Ultram) 50 mg PRN Q6HRS PRN PO PAIN; Start 07/12/16 at 10:15 Tramadol HCl (Ultram) 50 mg 1X ONCE PO Last administered on 07/12/16 14:32; Start 07/12/16 at 10:15; Stop 07/12/16 at 10:29; Status DC Methylprednisolone Acetate (Depo-Medrol 40mg Vial) 40 mg 1X ONCE IM ; Start at 10:30; Stop 07/12/16 at 10:31; Status DC Bupivacaine HCl (Sensorcaine-Mpf 0.25%) 10 ml 1X ONCE IJ ; Start 07/12/16 at 10 :30; Stop 07/12/16 at 10:31; Status DC Hydromorphone HCl 1 mg 1 mg 1X ONCE IV Last administered on 07/12/16 10:55; Start 07/12/16 at 10:30; Stop 07/12/16 at 10:46; Status DC Cefazolin Sodium 2 gm/Sodium Chloride 50 ml @ 100 mls/hr Q8HRS IV ; Start 07/12 at 11:00; Status Cancel Cefazolin Sodium/ Sodium Chloride (Ancef/Iv Sodium Chloride 0.9% 50ml) 50 ml @ 100 mls/hr Q8HRS IV Last administered on 07/18/16 21:06; Start 07/12/16 at 11: 00 Warfarin Sodium (Coumadin) 6 mg 1X WARF ONCE PO Last administered on 17:58; Start 07/12/16 at 16:00; Stop 07/12/16 at 16:01; Status DC Hydromorphone HCl (Dilaudid) 1 mg PRN Q4HRS PRN IVP PAIN Last administered on 22:25; Start 07/12/16 at 15:30 Polyethylene Glycol (miraLAX PACKET) 17 gm BID PO Last administered on 08:07; Start 07/12/16 at 21:00 Docusate Sodium (Colace) 100 mg PRN DAILY PRN PO CONSTIPATION; Start 07/12/16 at 15:30 Docusate Sodium (Colace) 100 mg DAILY PO Last administered on 07/15/16 08:07; Start 07/13/16 at 09:00 Magnesium Hydroxide (Milk Of Magnesia) 2,400 mg PRN DAILY PRN PO CONSTIPATION; Start 07/12/16 at 15:30 Gadobutrol (Gadavist) 7 mmol 1X ONCE IV Last administered on 07/13/16 10:45; Start 07/13/16 at 10:45; Stop 07/13/16 at 10:51; Status DC Gadobutrol (Gadavist) 7 mmol 1X ONCE IV Last administered on 07/13/16 10:45; Start 07/13/16 at 10:45; Stop 07/13/16 at 10:51; Status DC Warfarin Sodium (Coumadin) 10 mg 1X WARF ONCE PO Last administered on 17:56; Start 07/13/16 at 16:00; Stop 07/13/16 at 16:01; Status DC Enoxaparin Sodium (Lovenox Per Pharmacy Treatment Dosing) 1 each PRN DAILY PRN MC SEE COMMENTS; Start 07/13/16 at 12:30 Insulin Aspart (Novolog) 15 units TIDAC SQ Last administered on 07/18/16 17:21 ; Start 07/13/16 at 16:30 Insulin Detemir (Levemir) 40 units QHS SQ Last administered on 07/18/16 21:16 ; Start 07/13/16 at 21:00 Enoxaparin Sodium (Lovenox 150mg Syringe) 140 mg BID SQ Last administered on 08:20; Start 07/13/16 at 21:00 Warfarin Sodium (Coumadin) 15 mg 1X WARF ONCE PO ; Start 07/14/16 at 16:00; Stop 07/14/16 at 16:01; Status DC Ondansetron HCl (Zofran) 4 mg PRN Q6HRS PRN IV Nausea; Start 07/14/16 at 13:45 ; Stop 07/14/16 at 20:00; Status DC Fentanyl Citrate (Fentanyl 2ml Vial) 25 mcg PRN Q5MIN PRN IV MILD PAIN; Start 07/14/16 at 13:45; Stop 07/14/16 at 20:00; Status DC Fentanyl Citrate (Fentanyl 2ml Vial) 50 mcg PRN Q5MIN PRN IV MODERATE PAIN Last administered on 07/14/16 18:15; Start 07/14/16 at 13:45; Stop 07/15/16 at 20:00; Status DC Morphine Sulfate 1 mg 1 mg PRN Q10MIN PRN IV SEVERE PAIN; Start 07/14/16 at 13: 45; Stop 07/14/16 at 20:00; Status DC Lactated Ringer's (Iv Lactated Ringers) 1,000 ml @ 30 mls/hr Q24H IV ; Start at 13:42; Stop 07/14/16 at 19:44; Status DC Lidocaine HCl 2 ml 1X PRN PRN ID IV START; Start 07/14/16 at 13:45; Stop at 20:00; Status DC Hydromorphone HCl (Dilaudid) 0.5 mg PRN Q10MIN PRN IV SEV PAIN,Second choice; Start 07/14/16 at 13:45; Stop 07/14/16 at 18:00; Status DC Prochlorperazine Edisylate (Compazine) 5 mg PACU PRN PRN IV NAUSEA Last administered on 07/14/16 17:55; Start 07/14/16 at 13:45; Stop 07/14/16 at 20:00 ; Status DC Bupivacaine HCl/ Epinephrine Bitart 50 ml 50 ml STK-MED ONCE .ROUTE ; Start at 15:20; Stop 07/14/16 at 15:21; Status DC Propofol (Diprivan) 20 ml @ As Directed STK-MED ONCE IV ; Start 07/14/16 at 15: 26; Stop 07/14/16 at 15:27; Status DC Lidocaine HCl 100 mg STK-MED ONCE .ROUTE ; Start 07/14/16 at 15:26; Stop at 15:27; Status DC Fentanyl Citrate (Fentanyl 2ml Vial) 100 mcg STK-MED ONCE .ROUTE ; Start at 15:27; Stop 07/14/16 at 15:28; Status DC Rocuronium [place] (Zemuron) 50 mg STK-MED ONCE .ROUTE ; Start 07/14/16 at 15:27 ; Stop 07/14/16 at 15:28; Status DC Dexamethasone Sodium Phosphate (Decadron) 20 mg STK-MED ONCE .ROUTE ; Start at 16:34; Stop 07/14/16 at 16:35; Status DC Desflurane (Suprane) 30 ml STK-MED ONCE IH ; Start 07/14/16 at 16:35; Stop 07/14 at 16:36; Status DC Ondansetron HCl (Zofran) 4 mg STK-MED ONCE .ROUTE ; Start 07/14/16 at 16:46; Stop 07/14/16 at 16:47; Status DC Glycopyrrolate (Robinul) 1 mg STK-MED ONCE .ROUTE ; Start 07/14/16 at 16:46; Stop 07/14/16 at 16:47; Status DC Neostigmine Methylsulfate 5 mg STK-MED ONCE .ROUTE ; Start 07/14/16 at 16:46; Stop 07/14/16 at 16:47; Status DC Fentanyl Citrate (Fentanyl 2ml Vial) 100 mcg STK-MED ONCE .ROUTE ; Start at 16:57; Stop 07/14/16 at 16:58; Status DC Insulin Aspart 10 units 10 units 1X ONCE SQ Last administered on 07/15/16t 08: 26; Start 07/15/16 at 08:30; Stop 07/15/16 at 08:31; Status DC Cefazolin Sodium/ Dextrose (Ancef 2gm Premix) 50 ml @ 100 mls/hr 1X PREOP PRN IV PER PROTOCOL Last administered on 07/16/16 05:56; Start 07/16/16 at 10:30; Stop 07/16/16 at 18:00; Status DC Insulin Aspart (Novolog) 15 units 1X ONCE SQ Last administered on 07/15/16 12 :25; Start 07/15/16 at 12:15; Stop 07/15/16 at 12:16; Status DC Warfarin Sodium (Coumadin - No Dose Today) 1 each 1X WARF ONCE MC Last administered on 07/15/16 16:00; Start 07/15/16 at 16:00; Stop 07/15/16 at 16:01 ; Status DC Rocuronium [place] (Zemuron) 50 mg STK-MED ONCE .ROUTE ; Start 07/16/16 at 09:56 ; Stop 07/16/16 at 09:57; Status DC Dexamethasone Sodium Phosphate (Decadron) 20 mg STK-MED ONCE .ROUTE ; Start at 09:58; Stop 07/16/16 at 09:59; Status DC Ondansetron HCl 4 mg 4 mg STK-MED ONCE .ROUTE ; Start 07/16/16 at 09:58; Stop at 09:59; Status DC Propofol (Diprivan) 20 ml @ As Directed STK-MED ONCE IV ; Start 07/16/16 at 09: 58; Stop 07/16/16 at 09:59; Status DC Lidocaine HCl 100 mg STK-MED ONCE .ROUTE ; Start 07/16/16 at 09:58; Stop at 09:59; Status DC Fentanyl Citrate (Fentanyl 5ml Vial) 250 mcg STK-MED ONCE .ROUTE ; Start at 09:58; Stop 07/16/16 at 09:59; Status DC Midazolam HCl (Versed) 2 mg STK-MED ONCE .ROUTE ; Start 07/16/16 at 09:58; Stop 07/16/16 at 09:59; Status DC Famotidine (Pepcid) 20 mg STK-MED ONCE .ROUTE ; Start 07/16/16 at 09:58; Stop at 09:59; Status DC Succinylcholine Chloride (Anectine) 200 mg STK-MED ONCE .ROUTE ; Start 07/16/16 at 10:10; Stop 07/16/16 at 10:11; Status DC Succinylcholine Chloride 200 mg 200 mg STK-MED ONCE .ROUTE ; Start 07/16/16 at 10:26; Stop 07/16/16 at 10:27; Status DC Acetaminophen (Ofirmev) 100 ml @ As Directed STK-MED ONCE IV ; Start 07/16/16 at 11:49; Stop 07/16/16 at 11:50; Status DC Glycopyrrolate (Robinul) 1 mg STK-MED ONCE .ROUTE ; Start 07/16/16 at 11:55; Stop 07/16/16 at 11:56; Status DC Neostigmine Methylsulfate 5 mg STK-MED ONCE .ROUTE ; Start 07/16/16 at 11:55; Stop 07/16/16 at 11:56; Status DC Ondansetron HCl (Zofran) 4 mg PRN Q6HRS PRN IV Nausea; Start 07/16/16 at 12:30 ; Stop 07/17/16 at 12:29; Status DC Fentanyl Citrate (Fentanyl 2ml Vial) 25 mcg PRN Q5MIN PRN IV MILD PAIN; Start 07/16/16 at 12:30; Stop 07/17/16 at 12:29; Status DC Fentanyl Citrate (Fentanyl 2ml Vial) 50 mcg PRN Q5MIN PRN IV MODERATE PAIN; Start 07/16/16 at 12:30; Stop 07/17/16 at 12:29; Status DC Morphine Sulfate 1 mg 1 mg PRN Q10MIN PRN IV SEVERE PAIN; Start 07/16/16 at 12: 30; Stop 07/17/16 at 12:29; Status DC Lactated Ringer's (Iv Lactated Ringers) 1,000 ml @ 30 mls/hr Q24H IV ; Start at 12:28; Stop 07/17/16 at 00:27; Status DC Lidocaine HCl 2 ml 1X PRN PRN ID IV START; Start 07/16/16 at 12:30; Stop at 12:29; Status DC Hydromorphone HCl (Dilaudid) 0.5 mg PRN Q10MIN PRN IV SEV PAIN,Second choice Last administered on 07/16/16 14:38; Start 07/16/16 at 12:30; Stop 07/17/16 at 12:29; Status DC Prochlorperazine Edisylate (Compazine) 5 mg PACU PRN PRN IV NAUSEA; Start 07/16 at 12:30; Stop 07/17/16 at 12:29; Status DC Warfarin Sodium (Coumadin) 10 mg 1X WARF ONCE PO Last administered on 15:58; Start 07/16/16 at 16:00; Stop 07/16/16 at 16:01; Status DC Ondansetron HCl (Zofran) 4 mg PRN Q6HRS PRN IV Nausea; Start 07/19/16 at 07:00 ; Stop 07/20/16 at 06:59 Fentanyl Citrate (Fentanyl 2ml Vial) 25 mcg PRN Q5MIN PRN IV MILD PAIN; Start 07/19/16 at 07:00; Stop 07/20/16 at 06:59 Fentanyl Citrate (Fentanyl 2ml Vial) 50 mcg PRN Q5MIN PRN IV MODERATE PAIN; Start 07/19/16 at 07:00; Stop 07/20/16 at 06:59 Morphine Sulfate 1 mg 1 mg PRN Q10MIN PRN IV SEVERE PAIN; Start 07/19/16 at 07: 00; Stop 07/20/16 at 06:59 Lactated Ringer's (Iv Lactated Ringers) 1,000 ml @ 0 mls/hr Q0M IV ; Start at 07:00; Stop 07/19/16 at 18:59 Lidocaine HCl 2 ml 1X PRN PRN ID IV START; Start 07/19/16 at 07:00; Stop at 06:59 Hydromorphone HCl (Dilaudid) 0.5 mg PRN Q10MIN PRN IV SEVERE PAIN, Second choice; Start 07/19/16 at 07:00; Stop 07/20/16 at 06:59 Prochlorperazine Edisylate (Compazine) 5 mg PACU PRN PRN IV NAUSEA; Start 07/19 at 07:00; Stop 07/20/16 at 06:59 Sodium Chloride (Normal Saline Flush) 10 ml QSHIFT PRN IV AFTER MEDS AND BLOOD DRAWS; Start 07/17/16 at 12:00; Stop 07/17/16 at 12:06; Status DC Lidocaine HCl (Xylocaine 2% Topical 5gm Tube) 1 silvia 1X ONCE TP ; Start at 12:00; Stop 07/17/16 at 12:06; Status DC Lidocaine HCl (Viscous Lidocaine) 15 ml 1X ONCE MM ; Start 07/17/16 at 12:00; Stop 07/17/16 at 12:06; Status DC Benzocaine (Hurricaine One) 1 spray 1X ONCE MM ; Start 07/17/16 at 12:00; Stop 07/17/16 at 12:06; Status DC Active Scripts Active Phenergan (Promethazine HCl) 25 Mg Supp.rect 25 Mg RC Q8HRS PRN Zofran Odt (Ondansetron) 4 Mg Tab.rapdis 1 Tab SL Q8HRS PRN Vitals/I & O Vital Sign - Last 24 Hours 07/18/16 07/18/16 07/18/16 07/18/16 03:00 07:00 08:00 08:19 Temp 98.6 97.9 98.6 97.9 Pulse 91 88 Resp 18 20 B/P 137/63 143/68 Pulse Ox 95 97 O2 Delivery Room Air Room Air Room Air Room Air 07/18/16 07/18/16 07/18/16 07/18/16 11:00 11:00 12:25 15:00 Temp 98.0 97.6 97.4 98.0 97.6 97.4 Pulse 76 74 78 Resp 20 18 20 B/P 134/72 136/62 140/68 Pulse Ox 96 97 96 O2 Delivery Room Air Room Air Room Air 07/18/16 07/18/16 07/18/16 19:00 20:02 21:07 Temp 98.5 98.5 Pulse 98 Resp 20 B/P 148/70 Pulse Ox 96 96 O2 Delivery Room Air Room Air Room Air Intake and Output 07/17/16 07/17/16 07/18/16 15:00 23:00 07:00 Intake Total 250 ml 1320 ml 580 ml Output Total 450 ml 1150 ml 2750 ml Balance -200 ml 170 ml -2170 ml ERAN MATUTE MD Jul 18, 2016 22:25
[2016-07-18 23:00] VITALS: BP 160/69
[2016-07-19] MEDS: CEFAZOLIN SODIUM IV SCH ×3 (05:42→20:51)
[2016-07-19] MEDS: NORMAL SALINE IV SCH ×3 (05:42→20:51)
[2016-07-19 07:00] VITALS: BP 147/73
[2016-07-19] MEDS ORDERED: LIDOCAINE 1% 1 ML SYRINGE. ID PRN (07:00)
[2016-07-19] MEDS ORDERED: HYDROMORPHONE 2 MG/ML VIAL. IV PRN (07:00)
[2016-07-19] MEDS ORDERED: MORPHINE SULFATE 2 MG/ML DISP.SYRIN. IV PRN (07:00)
[2016-07-19] MEDS ORDERED: ONDANSETRON PF 4 MG/2 ML VIAL. IV PRN (07:00)
[2016-07-19] MEDS ORDERED: FENTANYL PF 100 MCG/2 ML VIAL. IV PRN ×2 (07:00)
[2016-07-19] MEDS ORDERED: IV RINGERS,LACTATED 1000ML 1,000 ML IV SCH (07:00)
[2016-07-19] MEDS ORDERED: PROCHLORPERAZINE 10 MG/2 ML VIAL. IV PRN (07:00)
[2016-07-19] MEDS ORDERED: BUPIVACAINE-EPI 0.25%-1:200000 MPF 30 ML VIAL. ONE (07:20)
[2016-07-19] MEDS: INSULIN ASPART 300 UNITS/3 ML INSULN.PEN SQ SCH ×6 (07:30→16:20)
[2016-07-19 08:16] LABS: BASO # 0.1 x10^3/uL (0.0-0.2); BASO % 1 % (0-3); EOS % 2 % (0-3); HEMATOCRIT 35.6 % (39.0-53.0); HEMOGLOBIN 11.2 g/dL (13.0-17.5); LYMPH # 1.5 x10^3/uL (1.0-4.8); LYMPH % 18 % (24-48); MEAN CORPUSCULAR HEMOGLOBIN 27 pg (25-35); MEAN CORPUSCULAR HGB CONC 32 g/dL (31-37); MEAN CORPUSCULAR VOLUME 87 fL (79-100); MONO % 4 % (0-9); NEUT % 76 % (31-73); PLATELET COUNT 427 x10^3/uL (140-400); RED CELL DISTRIBUTION WIDTH 16.2 % (11.5-14.5); WHITE BLOOD COUNT 8.2 x10^3/uL (4.0-11.0)
[2016-07-19 08:38] LABS: CALCIUM 8.8 mg/dL (8.5-10.1); CREATININE 0.6 mg/dL (0.7-1.3); GFR 139.9; POTASSIUM 4.4 mmol/L (3.5-5.1)
[2016-07-19] MEDS: POLYETHYLENE GLYCOL 3350 17 GM PACKET. PO SCH ×2 (09:00→20:56)
[2016-07-19] MEDS: GUAIFENESIN ER 600 MG TABLET.ER PO SCH ×2 (09:00→16:11)
[2016-07-19] MEDS: ENOXAPARIN ** NOTE DOSE ** SYRINGE SQ SCH ×2 (09:00→20:56)
[2016-07-19] MEDS: DOCUSATE SODIUM 100 MG CAPSULE PO SCH (09:00)
--- NOTE | 2016-07-19 09:08 | PDOC ---
Infectious Disease Note Subjective Subjective Mobility in shoulder improving Continues to be afebrile Pain controlled re-considered HARISH and additional surgery ROS ROS GEN: Denies fevers, chills, sweats HEENT: Denies blurred vision, sore throat CV: Denies chest pain RESP: Denies shortness of air, cough GI: Denies n/v/d NEURO: Denies confusion, dizziness MSK: joint stiffness/pain in left shoulder Vital Sign Vital Signs Vital Signs Date Time Temp Pulse Resp B/P Pulse Ox O2 Delivery O2 Flow Rate FiO2 07/19/16 07:00 98.4 74 18 147/73 94 Room Air 98.4 07/18/16 22:07 2.0 Physical Exam PHYSICAL EXAM GENERAL: NAD, Alert HEENT: PERRL, OC/OP NECK: Supple, no JVD, no LN LUNGS: Clear HEART: S1S2, no gallop, no murmur ABD: Soft, NT, no organomegaly, no rebound EXT: No edema, no cyanosis, TTP in left shoulder DIRECTOR OF DIAGNOSTIC IMAGING: Alert, oriented x 3, no focal neurologic deficit SKIN: No rash IV: ok Labs Lab Laboratory Tests Test 07/18/16 09:44 07/18/16 11:23 07/18/16 17:03 07/18/16 20:55 Stool Occult Blood Negative (NEG) Glucose (Fingerstick) 265mg/dL (70-99) 229mg/dL (70-99) 198mg/dL (70-99) Test 07/19/16 07:22 07/19/16 07:40 Glucose (Fingerstick) 161mg/dL (70-99) White Blood Count 8.2x10^3/uL (4.0-11.0) Red Blood Count 4.10x10^6/uL (4.30-5.70) Hemoglobin 11.2g/dL (13.0-17.5) Hematocrit 35.6% (39.0-53.0) Mean Corpuscular Volume 87fL (79-100) Mean Corpuscular Hemoglobin 27pg (25-35) Mean Corpuscular Hemoglobin Concent 32g/dL (31-37) Red Cell Distribution Width 16.2% (11.5-14.5) Platelet Count 427x10^3/uL (140-400) Neutrophils (%) (Auto) 76% (31-73) Lymphocytes (%) (Auto) 18% (24-48) Monocytes (%) (Auto) 4% (0-9) Eosinophils (%) (Auto) 2% (0-3) Basophils (%) (Auto) 1% (0-3) Neutrophils # (Auto) 6.2x10^3uL (1.8-7.7) Lymphocytes # (Auto) 1.5x10^3/uL (1.0-4.8) Monocytes # (Auto) 0.3x10^3/uL (0.0-1.1) Eosinophils # (Auto) 0.2x10^3/uL (0.0-0.7) Basophils # (Auto) 0.1x10^3/uL (0.0-0.2) Sodium Level 142mmol/L (136-145) Potassium Level 4.4mmol/L (3.5-5.1) Chloride Level 104mmol/L (98-107) Carbon Dioxide Level 31mmol/L (21-32) Anion Gap 7 (6-14) Blood Urea Nitrogen 13mg/dL (8-26) Creatinine 0.6mg/dL (0.7-1.3) Estimated GFR (Cockcroft-Gault) 139.9 Glucose Level 174mg/dL (70-99) Calcium Level 8.8mg/dL (8.5-10.1) Objective Assessment Fever - resolved Staph sepsis - 07/11. ECHO reviewed. Repeat cx 07/17 NGTD Staph aureus in urine Shoulder pain and warmth - improving + MSSA s/p I and D ? Septic emboli in UE Leukocytosis - better DM Obesity Pulm nodule ? Incidental mass in abd Plan Plan of Care Continue Cefazolin Repeat BC from 07/17 NGTD. HARISH planned for today if schedule allows. needs tighter glucose control OR today for wound vac exchange and possible closure PICC if repeat cults remain neg Try to find larger room D/w MELA JAIMES MD Jul 19, 2016 09:08
--- NOTE | 2016-07-19 09:41 | PDOC ---
PROGRESS NOTES Subjective Subjective No new complaints. Objective Objective Vital Signs Date Time Temp Pulse Resp B/P Pulse Ox O2 Delivery O2 Flow Rate FiO2 07/19/16 07:00 98.4 74 18 147/73 94 Room Air 98.4 07/18/16 22:07 2.0 Intake and Output 07/19/16 07:00 Intake Total 510 ml Output Total 1000 ml Balance -490 ml Intake Oral 360 ml IV Total 150 ml Output Urine Total 1000 ml # Voids 5 # Bowel Movements 1 Physical Exam Physical Exam He is sitting at edge of bed but continues with pain on ROM of left shoulder and tenderness to palpation about left shoulder area. Assessment Assessment Problems Medical Problems: (1) Acute renal injury Status: Acute (2) Dehydration Status: Acute (3) Hyponatremia Status: Acute (4) Nausea & vomiting Status: Acute (5) Uncontrolled diabetes mellitus Status: Acute Plan Plan of Care To continue physical and occupational therapy follow up as tolerated. Comment Review of Relevant I have reviewed the following items [place] (where applicable) has been applied. Labs Laboratory Tests Test 07/17/16 11:02 07/17/16 17:07 07/17/16 20:52 07/18/16 07:07 Glucose (Fingerstick) 226mg/dL (70-99) 290mg/dL (70-99) 232mg/dL (70-99) 131mg/dL (70-99) Test 07/18/16 08:30 07/18/16 09:44 07/18/16 11:23 07/18/16 17:03 White Blood Count 8.9x10^3/uL (4.0-11.0) Red Blood Count 3.94x10^6/uL (4.30-5.70) Hemoglobin 10.8g/dL (13.0-17.5) Hematocrit 33.2% (39.0-53.0) Mean Corpuscular Volume 84fL (79-100) Mean Corpuscular Hemoglobin 28pg (25-35) Mean Corpuscular Hemoglobin Concent 33g/dL (31-37) Red Cell Distribution Width 15.8% (11.5-14.5) Platelet Count 410x10^3/uL (140-400) Neutrophils (%) (Auto) 78% (31-73) Lymphocytes (%) (Auto) 16% (24-48) Monocytes (%) (Auto) 4% (0-9) Eosinophils (%) (Auto) 1% (0-3) Basophils (%) (Auto) 1% (0-3) Neutrophils # (Auto) 6.9x10^3uL (1.8-7.7) Lymphocytes # (Auto) 1.4x10^3/uL (1.0-4.8) Monocytes # (Auto) 0.4x10^3/uL (0.0-1.1) Eosinophils # (Auto) 0.1x10^3/uL (0.0-0.7) Basophils # (Auto) 0.1x10^3/uL (0.0-0.2) Prothrombin Time 15.4SEC (11.7-14.0) Prothromb Time International Ratio 1.3 (0.8-1.1) Sodium Level 140mmol/L (136-145) Potassium Level 4.4mmol/L (3.5-5.1) Chloride Level 105mmol/L (98-107) Carbon Dioxide Level 31mmol/L (21-32) Anion Gap 4 (6-14) Blood Urea Nitrogen 13mg/dL (8-26) Creatinine 0.7mg/dL (0.7-1.3) Estimated GFR (Cockcroft-Gault) 117.1 Glucose Level 200mg/dL (70-99) Calcium Level 8.5mg/dL (8.5-10.1) Stool Occult Blood Negative (NEG) Glucose (Fingerstick) 265mg/dL (70-99) 229mg/dL (70-99) Test 07/18/16 20:55 07/19/16 07:22 07/19/16 07:40 Glucose (Fingerstick) 198mg/dL (70-99) 161mg/dL (70-99) White Blood Count 8.2x10^3/uL (4.0-11.0) Red Blood Count 4.10x10^6/uL (4.30-5.70) Hemoglobin 11.2g/dL (13.0-17.5) Hematocrit 35.6% (39.0-53.0) Mean Corpuscular Volume 87fL (79-100) Mean Corpuscular Hemoglobin 27pg (25-35) Mean Corpuscular Hemoglobin Concent 32g/dL (31-37) Red Cell Distribution Width 16.2% (11.5-14.5) Platelet Count 427x10^3/uL (140-400) Neutrophils (%) (Auto) 76% (31-73) Lymphocytes (%) (Auto) 18% (24-48) Monocytes (%) (Auto) 4% (0-9) Eosinophils (%) (Auto) 2% (0-3) Basophils (%) (Auto) 1% (0-3) Neutrophils # (Auto) 6.2x10^3uL (1.8-7.7) Lymphocytes # (Auto) 1.5x10^3/uL (1.0-4.8) Monocytes # (Auto) 0.3x10^3/uL (0.0-1.1) Eosinophils # (Auto) 0.2x10^3/uL (0.0-0.7) Basophils # (Auto) 0.1x10^3/uL (0.0-0.2) Sodium Level 142mmol/L (136-145) Potassium Level 4.4mmol/L (3.5-5.1) Chloride Level 104mmol/L (98-107) Carbon Dioxide Level 31mmol/L (21-32) Anion Gap 7 (6-14) Blood Urea Nitrogen 13mg/dL (8-26) Creatinine 0.6mg/dL (0.7-1.3) Estimated GFR (Cockcroft-Gault) 139.9 Glucose Level 174mg/dL (70-99) Calcium Level 8.8mg/dL (8.5-10.1) Laboratory Tests Test 07/18/16 09:44 07/18/16 11:23 07/18/16 17:03 07/18/16 20:55 Stool Occult Blood Negative (NEG) Glucose (Fingerstick) 265mg/dL (70-99) 229mg/dL (70-99) 198mg/dL (70-99) Test 07/19/16 07:22 07/19/16 07:40 Glucose (Fingerstick) 161mg/dL (70-99) White Blood Count 8.2x10^3/uL (4.0-11.0) Red Blood Count 4.10x10^6/uL (4.30-5.70) Hemoglobin 11.2g/dL (13.0-17.5) Hematocrit 35.6% (39.0-53.0) Mean Corpuscular Volume 87fL (79-100) Mean Corpuscular Hemoglobin 27pg (25-35) Mean Corpuscular Hemoglobin Concent 32g/dL (31-37) Red Cell Distribution Width 16.2% (11.5-14.5) Platelet Count 427x10^3/uL (140-400) Neutrophils (%) (Auto) 76% (31-73) Lymphocytes (%) (Auto) 18% (24-48) Monocytes (%) (Auto) 4% (0-9) Eosinophils (%) (Auto) 2% (0-3) Basophils (%) (Auto) 1% (0-3) Neutrophils # (Auto) 6.2x10^3uL (1.8-7.7) Lymphocytes # (Auto) 1.5x10^3/uL (1.0-4.8) Monocytes # (Auto) 0.3x10^3/uL (0.0-1.1) Eosinophils # (Auto) 0.2x10^3/uL (0.0-0.7) Basophils # (Auto) 0.1x10^3/uL (0.0-0.2) Sodium Level 142mmol/L (136-145) Potassium Level 4.4mmol/L (3.5-5.1) Chloride Level 104mmol/L (98-107) Carbon Dioxide Level 31mmol/L (21-32) Anion Gap 7 (6-14) Blood Urea Nitrogen 13mg/dL (8-26) Creatinine 0.6mg/dL (0.7-1.3) Estimated GFR (Cockcroft-Gault) 139.9 Glucose Level 174mg/dL (70-99) Calcium Level 8.8mg/dL (8.5-10.1) Microbiology 07/17/16 Blood Culture - Preliminary, Resulted NO GROWTH AFTER 2 DAYS 07/09/16 Urine Culture - Final, Complete 07/09/16 Urine Culture Result 1 (EMILI) - Final, Complete 07/09/16 Antimicrobic Susceptibility - Final, Complete 07/14/16 Anaerobic/Aerobic Culture - Preliminary, Resulted 07/14/16 Anaerobic Culture Result 1 (EMILI) - Preliminary, Resulted 07/14/16 Aerobic Culture - Final, Resulted 07/14/16 Aerobic Culture Result 1 (EMILI) - Final, Resulted 07/14/16 Antimicrobic Susceptibility - Final, Resulted Medications Current Medications Sodium Chloride (Iv Sodium Chloride 0.9% 1000ml Bag) 1,000 ml @ 1,000 mls/hr Q1H IV Last administered on 07/09/16 19:34; Start 07/09/16 at 19:18; Stop at 20:17; Status DC Hydromorphone HCl (Dilaudid) 2 mg 1X ONCE IV ; Start 07/09/16 at 19:30; Stop at 19:30; Status DC Ondansetron HCl (Zofran) 4 mg 1X ONCE IV Last administered on 07/09/16 19:33 ; Start 07/09/16 at 19:30; Stop 07/09/16 at 19:31; Status DC Hydromorphone HCl (Dilaudid) 1 mg 1X ONCE IV Last administered on 07/09/16 19 :33; Start 07/09/16 at 19:30; Stop 07/09/16 at 19:31; Status DC Ondansetron HCl (Zofran) 4 mg PRN Q8HRS PRN IV NAUSEA/VOMITING; Start 07/09/16 at 20:30; Stop 07/09/16 at 21:00; Status DC Morphine Sulfate 4 mg 4 mg PRN Q2HR PRN IV PAIN Last administered on 07/10/16 06:36; Start 07/09/16 at 20:30; Stop 07/10/16 at 13:00; Status DC Sodium Chloride (Iv Sodium Chloride 0.9% 1000ml Bag) 1,000 ml @ 150 mls/hr Q6H40M IV Last administered on 07/09/16 20:41; Start 07/09/16 at 20:24; Stop 07/10/16 at 15:29; Status DC Acetaminophen (Tylenol) 650 mg PRN Q4HRS PRN PO FEVER; Start 07/09/16 at 20:30 ; Stop 07/09/16 at 21:00; Status DC Acetaminophen (Tylenol) 650 mg PRN Q6HRS PRN PO FEVER; Start 07/09/16 at 21:00 ; Stop 07/10/16 at 15:28; Status DC Ondansetron HCl 4 mg 4 mg PRN Q6HRS PRN IV NAUSEA/VOMITING Last administered on 07/15/16 22:34; Start 07/09/16 at 21:00 Sodium Chloride (Iv Sodium Chloride 0.9% 1000ml Bag) 1,000 ml @ 150 mls/hr Q6H40M IV Last administered on 07/13/16 17:59; Start 07/09/16 at 21:00; Stop 07/13/16 at 19:27; Status DC Insulin Aspart (Novolog) 0-9 UNITS TIDWMEALS SQ Last administered on 07/18/16 17:20; Start 07/10/16 at 08:00 Dextrose 12.5 gm 12.5 gm PRN Q15MIN PRN IV SEE COMMENTS; Start 07/09/16 at 21: 00 Levofloxacin/ Dextrose (LEVAQUIN 500mg PREMIX) 100 ml @ 100 mls/hr Q24H IV Last administered on 07/12/16 02:49; Start 07/09/16 at 22:00; Stop 07/12/16 at 10:37; Status DC Guaifenesin (Mucinex) 600 mg BID PO Last administered on 07/18/16 21:06; Start 07/09/16 at 21:00 Albuterol Sulfate 2.5 mg 2.5 mg PRN Q4HRS PRN NEB SHORTNESS OF BREATH; Start at 21:00 Sodium Chloride (Iv Sodium Chloride 0.9% 1000ml Bag) 1,000 ml @ 0 mls/hr 1X ONCE IV Last administered on 07/10/16 10:27; Start 07/10/16 at 10:30; Stop at 10:31; Status DC Alprazolam (Xanax) 0.5 mg PRN Q8HRS PRN PO ANXIETY / AGITATION Last administered on 07/13/16 00:52; Start 07/10/16 at 13:00 Acetaminophen/ Hydrocodone Bitart (Lortab 5/325) 1 tab PRN Q6HRS PRN PO MODERATE - SEVERE PAIN Last administered on 07/18/16 21:07; Start 07/10/16 at 13:00 Acetaminophen (Tylenol) 650 mg PRN Q6HRS PRN PO MILD PAIN / TEMP Last administered on 07/14/16 00:08; Start 07/10/16 at 13:00 Heparin Sodium (Porcine) 5000 unit 5,000 unit Q8HRS SQ Last administered on 14:02; Start 07/10/16 at 14:00; Stop 07/11/16 at 22:55; Status DC Magnesium Sulfate/ Dextrose (Magnesium Sulfate PREMIX 2GM) 50 ml @ 25 mls/hr PRN DAILY PRN IV for Mag < 1.7 on am labs; Start 07/10/16 at 14:00 Diphenhydramine HCl (Benadryl) 25 mg PRN Q6HRS PRN IVP ITCHING Last administered on 07/13/16 01:52; Start 07/11/16 at 01:30 Lorazepam 2 mg 2 mg PRN Q4HRS PRN IV ANXIETY / AGITATION Last administered on 10:19; Start 07/11/16 at 01:30 Albumin Human (Albuminar) 100 ml @ 100 mls/hr TID IV Last administered on 07/13 13:56; Start 07/11/16 at 14:00; Stop 07/13/16 at 09:59; Status DC Insulin Aspart (Novolog) 10 units TIDAC SQ Last administered on 07/12/16 08:46 ; Start 07/11/16 at 12:30; Stop 07/12/16 at 09:17; Status DC Insulin Detemir 25 units 25 units QHS SQ Last administered on 07/12/16 01:48; Start 07/11/16 at 21:00; Stop 07/12/16 at 09:17; Status DC Heparin Sodium/ Dextrose 500 ml @ 0 mls/hr CONT PRN IV SEE I/O RECORD Last administered on 07/13/16 12:12; Start 07/11/16 at 23:00; Stop 07/13/16 at 12:32 ; Status DC Heparin Sodium (Porcine) 3,800 unit PRN Q6HRS PRN IV FOR UFH LEVEL LESS THAN 0.2 Last administered on 07/12/16 19:37; Start 07/11/16 at 23:00; Stop at 12:32; Status DC Heparin Sodium (Porcine) 1,900 unit PRN Q6HRS PRN IV FOR UFH LEVEL 0.2 - 0.29 Last administered on 07/13/16 02:33; Start 07/11/16 at 23:00; Stop 07/13/16 at 12:32; Status DC Warfarin Sodium (Coumadin Per Pharmacy) 1 each PRN DAILY PRN MC PER PROTOCOL Last administered on 07/17/16 13:43; Start 07/11/16 at 23:00 Warfarin Sodium (Coumadin) 5 mg 1X ONCE PO Last administered on 07/12/16 01: 45; Start 07/12/16 at 00:15; Stop 07/12/16 at 00:16; Status DC Info (Anti-Coagulation Monitoring By Pharmacy) 1 each PRN DAILY PRN MC SEE COMMENTS Last administered on 07/16/16 14:36; Start 07/11/16 at 23:45 Heparin Sodium (Porcine) 10,000 unit 1X ONCE IV Last administered on 01:48; Start 07/12/16 at 01:15; Stop 07/12/16 at 01:16; Status DC Insulin Aspart (Novolog) 12 units TIDAC SQ Last administered on 07/13/16 12:08 ; Start 07/12/16 at 11:30; Stop 07/13/16 at 12:32; Status DC Insulin Detemir (Levemir) 30 units QHS SQ Last administered on 07/12/16 21:07 ; Start 07/12/16 at 21:00; Stop 07/13/16 at 12:32; Status DC Tramadol HCl (Ultram) 50 mg PRN Q6HRS PRN PO PAIN; Start 07/12/16 at 10:15 Tramadol HCl (Ultram) 50 mg 1X ONCE PO Last administered on 07/12/16 14:32; Start 07/12/16 at 10:15; Stop 07/12/16 at 10:29; Status DC Methylprednisolone Acetate (Depo-Medrol 40mg Vial) 40 mg 1X ONCE IM ; Start at 10:30; Stop 07/12/16 at 10:31; Status DC Bupivacaine HCl (Sensorcaine-Mpf 0.25%) 10 ml 1X ONCE IJ ; Start 07/12/16 at 10 :30; Stop 07/12/16 at 10:31; Status DC Hydromorphone HCl 1 mg 1 mg 1X ONCE IV Last administered on 07/12/16 10:55; Start 07/12/16 at 10:30; Stop 07/12/16 at 10:46; Status DC Cefazolin Sodium 2 gm/Sodium Chloride 50 ml @ 100 mls/hr Q8HRS IV ; Start 07/12 at 11:00; Status Cancel Cefazolin Sodium/ Sodium Chloride (Ancef/Iv Sodium Chloride 0.9% 50ml) 50 ml @ 100 mls/hr Q8HRS IV Last administered on 07/19/16 05:42; Start 07/12/16 at 11: 00 Warfarin Sodium (Coumadin) 6 mg 1X WARF ONCE PO Last administered on 17:58; Start 07/12/16 at 16:00; Stop 07/12/16 at 16:01; Status DC Hydromorphone HCl (Dilaudid) 1 mg PRN Q4HRS PRN IVP PAIN Last administered on 22:25; Start 07/12/16 at 15:30 Polyethylene Glycol (miraLAX PACKET) 17 gm BID PO Last administered on 08:07; Start 07/12/16 at 21:00 Docusate Sodium (Colace) 100 mg PRN DAILY PRN PO CONSTIPATION; Start 07/12/16 at 15:30 Docusate Sodium (Colace) 100 mg DAILY PO Last administered on 07/15/16 08:07; Start 07/13/16 at 09:00 Magnesium Hydroxide (Milk Of Magnesia) 2,400 mg PRN DAILY PRN PO CONSTIPATION; Start 07/12/16 at 15:30 Gadobutrol (Gadavist) 7 mmol 1X ONCE IV Last administered on 07/13/16 10:45; Start 07/13/16 at 10:45; Stop 07/13/16 at 10:51; Status DC Gadobutrol (Gadavist) 7 mmol 1X ONCE IV Last administered on 07/13/16 10:45; Start 07/13/16 at 10:45; Stop 07/13/16 at 10:51; Status DC Warfarin Sodium (Coumadin) 10 mg 1X WARF ONCE PO Last administered on 17:56; Start 07/13/16 at 16:00; Stop 07/13/16 at 16:01; Status DC Enoxaparin Sodium (Lovenox Per Pharmacy Treatment Dosing) 1 each PRN DAILY PRN MC SEE COMMENTS; Start 07/13/16 at 12:30 Insulin Aspart (Novolog) 15 units TIDAC SQ Last administered on 07/18/16 17:21 ; Start 07/13/16 at 16:30 Insulin Detemir (Levemir) 40 units QHS SQ Last administered on 07/18/16 21:16 ; Start 07/13/16 at 21:00 Enoxaparin Sodium (Lovenox 150mg Syringe) 140 mg BID SQ Last administered on 08:20; Start 07/13/16 at 21:00 Warfarin Sodium (Coumadin) 15 mg 1X WARF ONCE PO ; Start 07/14/16 at 16:00; Stop 07/14/16 at 16:01; Status DC Ondansetron HCl (Zofran) 4 mg PRN Q6HRS PRN IV Nausea; Start 07/14/16 at 13:45 ; Stop 07/14/16 at 20:00; Status DC Fentanyl Citrate (Fentanyl 2ml Vial) 25 mcg PRN Q5MIN PRN IV MILD PAIN; Start 07/14/16 at 13:45; Stop 07/14/16 at 20:00; Status DC Fentanyl Citrate (Fentanyl 2ml Vial) 50 mcg PRN Q5MIN PRN IV MODERATE PAIN Last administered on 07/14/16 18:15; Start 07/14/16 at 13:45; Stop 07/15/16 at 20:00; Status DC Morphine Sulfate 1 mg 1 mg PRN Q10MIN PRN IV SEVERE PAIN; Start 07/14/16 at 13: 45; Stop 07/14/16 at 20:00; Status DC Lactated Ringer's (Iv Lactated Ringers) 1,000 ml @ 30 mls/hr Q24H IV ; Start at 13:42; Stop 07/14/16 at 19:44; Status DC Lidocaine HCl 2 ml 1X PRN PRN ID IV START; Start 07/14/16 at 13:45; Stop at 20:00; Status DC Hydromorphone HCl (Dilaudid) 0.5 mg PRN Q10MIN PRN IV SEV PAIN,Second choice; Start 07/14/16 at 13:45; Stop 07/14/16 at 18:00; Status DC Prochlorperazine Edisylate (Compazine) 5 mg PACU PRN PRN IV NAUSEA Last administered on 07/14/16t 17:55; Start 07/14/16 at 13:45; Stop 07/14/16 at 20:00 ; Status DC Bupivacaine HCl/ Epinephrine Bitart 50 ml 50 ml STK-MED ONCE .ROUTE ; Start at 15:20; Stop 07/14/16 at 15:21; Status DC Propofol (Diprivan) 20 ml @ As Directed STK-MED ONCE IV ; Start 07/14/16 at 15: 26; Stop 07/14/16 at 15:27; Status DC Lidocaine HCl 100 mg STK-MED ONCE .ROUTE ; Start 07/14/16 at 15:26; Stop at 15:27; Status DC Fentanyl Citrate (Fentanyl 2ml Vial) 100 mcg STK-MED ONCE .ROUTE ; Start at 15:27; Stop 07/14/16 at 15:28; Status DC Rocuronium [place] (Zemuron) 50 mg STK-MED ONCE .ROUTE ; Start 07/14/16 at 15:27 ; Stop 07/14/16 at 15:28; Status DC Dexamethasone Sodium Phosphate (Decadron) 20 mg STK-MED ONCE .ROUTE ; Start at 16:34; Stop 07/14/16 at 16:35; Status DC Desflurane (Suprane) 30 ml STK-MED ONCE IH ; Start 07/14/16 at 16:35; Stop 07/14 at 16:36; Status DC Ondansetron HCl (Zofran) 4 mg STK-MED ONCE .ROUTE ; Start 07/14/16 at 16:46; Stop 07/14/16 at 16:47; Status DC Glycopyrrolate (Robinul) 1 mg STK-MED ONCE .ROUTE ; Start 07/14/16 at 16:46; Stop 07/14/16 at 16:47; Status DC Neostigmine Methylsulfate 5 mg STK-MED ONCE .ROUTE ; Start 07/14/16 at 16:46; Stop 07/14/16 at 16:47; Status DC Fentanyl Citrate (Fentanyl 2ml Vial) 100 mcg STK-MED ONCE .ROUTE ; Start at 16:57; Stop 07/14/16 at 16:58; Status DC Insulin Aspart 10 units 10 units 1X ONCE SQ Last administered on 07/15/16 08: 26; Start 07/15/16 at 08:30; Stop 07/15/16 at 08:31; Status DC Cefazolin Sodium/ Dextrose (Ancef 2gm Premix) 50 ml @ 100 mls/hr 1X PREOP PRN IV PER PROTOCOL Last administered on 07/16/16 05:56; Start 07/16/16 at 10:30; Stop 07/16/16 at 18:00; Status DC Insulin Aspart (Novolog) 15 units 1X ONCE SQ Last administered on 07/15/16 12 :25; Start 07/15/16 at 12:15; Stop 07/15/16 at 12:16; Status DC Warfarin Sodium (Coumadin - No Dose Today) 1 each 1X WARF ONCE MC Last administered on 07/15/16 16:00; Start 07/15/16 at 16:00; Stop 07/15/16 at 16:01 ; Status DC Rocuronium [place] (Zemuron) 50 mg STK-MED ONCE .ROUTE ; Start 07/16/16 at 09:56 ; Stop 07/16/16 at 09:57; Status DC Dexamethasone Sodium Phosphate (Decadron) 20 mg STK-MED ONCE .ROUTE ; Start at 09:58; Stop 07/16/16 at 09:59; Status DC Ondansetron HCl 4 mg 4 mg STK-MED ONCE .ROUTE ; Start 07/16/16 at 09:58; Stop at 09:59; Status DC Propofol (Diprivan) 20 ml @ As Directed STK-MED ONCE IV ; Start 07/16/16 at 09: 58; Stop 07/16/16 at 09:59; Status DC Lidocaine HCl 100 mg STK-MED ONCE .ROUTE ; Start 07/16/16 at 09:58; Stop at 09:59; Status DC Fentanyl Citrate (Fentanyl 5ml Vial) 250 mcg STK-MED ONCE .ROUTE ; Start at 09:58; Stop 07/16/16 at 09:59; Status DC Midazolam HCl (Versed) 2 mg STK-MED ONCE .ROUTE ; Start 07/16/16 at 09:58; Stop 07/16/16 at 09:59; Status DC Famotidine (Pepcid) 20 mg STK-MED ONCE .ROUTE ; Start 07/16/16 at 09:58; Stop at 09:59; Status DC Succinylcholine Chloride (Anectine) 200 mg STK-MED ONCE .ROUTE ; Start 07/16/16 at 10:10; Stop 07/16/16 at 10:11; Status DC Succinylcholine Chloride 200 mg 200 mg STK-MED ONCE .ROUTE ; Start 07/16/16 at 10:26; Stop 07/16/16 at 10:27; Status DC Acetaminophen (Ofirmev) 100 ml @ As Directed STK-MED ONCE IV ; Start 07/16/16 at 11:49; Stop 07/16/16 at 11:50; Status DC Glycopyrrolate (Robinul) 1 mg STK-MED ONCE .ROUTE ; Start 07/16/16 at 11:55; Stop 07/16/16 at 11:56; Status DC Neostigmine Methylsulfate 5 mg STK-MED ONCE .ROUTE ; Start 07/16/16 at 11:55; Stop 07/16/16 at 11:56; Status DC Ondansetron HCl (Zofran) 4 mg PRN Q6HRS PRN IV Nausea; Start 07/16/16 at 12:30 ; Stop 07/17/16 at 12:29; Status DC Fentanyl Citrate (Fentanyl 2ml Vial) 25 mcg PRN Q5MIN PRN IV MILD PAIN; Start 07/16/16 at 12:30; Stop 07/17/16 at 12:29; Status DC Fentanyl Citrate (Fentanyl 2ml Vial) 50 mcg PRN Q5MIN PRN IV MODERATE PAIN; Start 07/16/16 at 12:30; Stop 07/17/16 at 12:29; Status DC Morphine Sulfate 1 mg 1 mg PRN Q10MIN PRN IV SEVERE PAIN; Start 07/16/16 at 12: 30; Stop 07/17/16 at 12:29; Status DC Lactated Ringer's (Iv Lactated Ringers) 1,000 ml @ 30 mls/hr Q24H IV ; Start at 12:28; Stop 07/17/16 at 00:27; Status DC Lidocaine HCl 2 ml 1X PRN PRN ID IV START; Start 07/16/16 at 12:30; Stop at 12:29; Status DC Hydromorphone HCl (Dilaudid) 0.5 mg PRN Q10MIN PRN IV SEV PAIN,Second choice Last administered on 07/16/16 14:38; Start 07/16/16 at 12:30; Stop 07/17/16 at 12:29; Status DC Prochlorperazine Edisylate (Compazine) 5 mg PACU PRN PRN IV NAUSEA; Start 07/16 at 12:30; Stop 07/17/16 at 12:29; Status DC Warfarin Sodium (Coumadin) 10 mg 1X WARF ONCE PO Last administered on 15:58; Start 07/16/16 at 16:00; Stop 07/16/16 at 16:01; Status DC Ondansetron HCl (Zofran) 4 mg PRN Q6HRS PRN IV Nausea; Start 07/19/16 at 07:00 ; Stop 07/20/16 at 06:59 Fentanyl Citrate (Fentanyl 2ml Vial) 25 mcg PRN Q5MIN PRN IV MILD PAIN; Start 07/19/16 at 07:00; Stop 07/20/16 at 06:59 Fentanyl Citrate (Fentanyl 2ml Vial) 50 mcg PRN Q5MIN PRN IV MODERATE PAIN; Start 07/19/16 at 07:00; Stop 07/20/16 at 06:59 Morphine Sulfate 1 mg 1 mg PRN Q10MIN PRN IV SEVERE PAIN; Start 07/19/16 at 07: 00; Stop 07/20/16 at 06:59 Lactated Ringer's (Iv Lactated Ringers) 1,000 ml @ 0 mls/hr Q0M IV ; Start at 07:00; Stop 07/19/16 at 18:59 Lidocaine HCl 2 ml 1X PRN PRN ID IV START; Start 07/19/16 at 07:00; Stop at 06:59 Hydromorphone HCl (Dilaudid) 0.5 mg PRN Q10MIN PRN IV SEVERE PAIN, Second choice; Start 07/19/16 at 07:00; Stop 07/20/16 at 06:59 Prochlorperazine Edisylate (Compazine) 5 mg PACU PRN PRN IV NAUSEA; Start 07/19 at 07:00; Stop 07/20/16 at 06:59 Sodium Chloride (Normal Saline Flush) 10 ml QSHIFT PRN IV AFTER MEDS AND BLOOD DRAWS; Start 07/17/16 at 12:00; Stop 07/17/16 at 12:06; Status DC Lidocaine HCl (Xylocaine 2% Topical 5gm Tube) 1 silvia 1X ONCE TP ; Start at 12:00; Stop 07/17/16 at 12:06; Status DC Lidocaine HCl (Viscous Lidocaine) 15 ml 1X ONCE MM ; Start 07/17/16 at 12:00; Stop 07/17/16 at 12:06; Status DC Benzocaine (Hurricaine One) 1 spray 1X ONCE MM ; Start 07/17/16 at 12:00; Stop 07/17/16 at 12:06; Status DC Bupivacaine HCl/ Epinephrine Bitart (Sensorcaine-Epi 0.25%-1:409515 Mpf) 30 ml STK-MED ONCE .ROUTE ; Start 07/19/16 at 07:20; Stop 07/19/16 at 07:21; Status DC Active Scripts Active Phenergan (Promethazine HCl) 25 Mg Supp.rect 25 Mg RC Q8HRS PRN Zofran Odt (Ondansetron) 4 Mg Tab.rapdis 1 Tab SL Q8HRS PRN Vitals/I & O Vital Sign - Last 24 Hours 07/18/16 07/18/16 07/18/16 07/18/16 11:00 11:00 12:25 15:00 Temp 98.0 97.6 97.4 98.0 97.6 97.4 Pulse 76 74 78 Resp 20 18 20 B/P 134/72 136/62 140/68 Pulse Ox 96 97 96 O2 Delivery Room Air Room Air Room Air 07/18/16 07/18/16 07/18/16 07/18/16 19:00 20:02 21:07 22:07 Temp 98.5 98.5 Pulse 98 Resp 20 B/P 148/70 Pulse Ox 96 96 96 O2 Delivery Room Air Room Air Room Air Room Air O2 Flow Rate 2.0 07/18/16 07/19/16 23:00 07:00 Temp 98.6 98.4 98.6 98.4 Pulse 87 74 Resp 20 18 B/P 160/69 147/73 Pulse Ox 97 94 O2 Delivery Room Air Room Air Intake and Output 07/18/16 07/18/16 07/19/16 15:00 23:00 07:00 Intake Total 100 ml 410 ml Output Total 1000 ml Balance 100 ml -590 ml CLIFFORD BURGOS MD Jul 19, 2016 09:41
--- NOTE | 2016-07-19 10:10 | PDOC ---
Provider Note Provider Note HARISH requested in relation to MSSA, sepsis and rule out vegetations, endocarditis. Pt initially refused to having HARISH. Pt has reconsidered and planning to commence after shoulder surgery today. Discussed risks and benefits with pt and spouse and agreeable to proceed. THU VILLA APRN Jul 19, 2016 10:10
[2016-07-19] MEDS ORDERED: BENZOCAINE ONE 20% MUCOSAL SPRAY. MM (10:15)
[2016-07-19] MEDS ORDERED: LIDOCAINE 2% VISCOUS 15 ML SOLUTION. MM ONE (10:15)
[2016-07-19] MEDS ORDERED: 0.9 % SODIUM CHLORIDE 10 ML DISP.SYRIN. IV PRN (10:15)
[2016-07-19] MEDS ORDERED: LIDOCAINE 2% TOPICAL JELLY 5GM TUBE. TP ONE (10:15)
[2016-07-19 10:29] VITALS: BP 141/64
[2016-07-19] MEDS ORDERED: DEXAMETHASONE SOD PHOS 20 MG/5 ML VIAL. ONE (10:37)
[2016-07-19] MEDS ORDERED: ONDANSETRON PF 4 MG/2 ML VIAL. ONE (10:37)
[2016-07-19] MEDS ORDERED: PROPOFOL 20 ML IV ONE ×2 (10:37→12:15)
[2016-07-19] MEDS ORDERED: LIDOCAINE 2% 100 MG/5 ML DISP.SYRIN. ONE (10:37)
[2016-07-19] MEDS ORDERED: FENTANYL PF 100 MCG/2 ML VIAL. ONE (10:37)
--- NOTE | 2016-07-19 10:40 | PDOC ---
PULMONARY PROGRESS NOTES Subjective no soa Vitals Vital Signs Date Time Temp Pulse Resp B/P Pulse Ox O2 Delivery O2 Flow Rate FiO2 07/19/16 10:29 99.5 86 18 141/64 91 Room Air 99.5 07/18/16 22:07 2.0 General: Alert, No acute distress Lungs: Other (No wheezing) Cardiovascular: S1 Abdomen: Soft Neuro Exam: Alert Extremities: No Edema Skin: Warm Labs Laboratory Tests Test 07/17/16 11:02 07/17/16 17:07 07/17/16 20:52 07/18/16 07:07 Glucose (Fingerstick) 226mg/dL (70-99) 290mg/dL (70-99) 232mg/dL (70-99) 131mg/dL (70-99) Test 07/18/16 08:30 07/18/16 09:44 07/18/16 11:23 07/18/16 17:03 White Blood Count 8.9x10^3/uL (4.0-11.0) Red Blood Count 3.94x10^6/uL (4.30-5.70) Hemoglobin 10.8g/dL (13.0-17.5) Hematocrit 33.2% (39.0-53.0) Mean Corpuscular Volume 84fL (79-100) Mean Corpuscular Hemoglobin 28pg (25-35) Mean Corpuscular Hemoglobin Concent 33g/dL (31-37) Red Cell Distribution Width 15.8% (11.5-14.5) Platelet Count 410x10^3/uL (140-400) Neutrophils (%) (Auto) 78% (31-73) Lymphocytes (%) (Auto) 16% (24-48) Monocytes (%) (Auto) 4% (0-9) Eosinophils (%) (Auto) 1% (0-3) Basophils (%) (Auto) 1% (0-3) Neutrophils # (Auto) 6.9x10^3uL (1.8-7.7) Lymphocytes # (Auto) 1.4x10^3/uL (1.0-4.8) Monocytes # (Auto) 0.4x10^3/uL (0.0-1.1) Eosinophils # (Auto) 0.1x10^3/uL (0.0-0.7) Basophils # (Auto) 0.1x10^3/uL (0.0-0.2) Prothrombin Time 15.4SEC (11.7-14.0) Prothromb Time International Ratio 1.3 (0.8-1.1) Sodium Level 140mmol/L (136-145) Potassium Level 4.4mmol/L (3.5-5.1) Chloride Level 105mmol/L (98-107) Carbon Dioxide Level 31mmol/L (21-32) Anion Gap 4 (6-14) Blood Urea Nitrogen 13mg/dL (8-26) Creatinine 0.7mg/dL (0.7-1.3) Estimated GFR (Cockcroft-Gault) 117.1 Glucose Level 200mg/dL (70-99) Calcium Level 8.5mg/dL (8.5-10.1) Stool Occult Blood Negative (NEG) Glucose (Fingerstick) 265mg/dL (70-99) 229mg/dL (70-99) Test 07/18/16 20:55 07/19/16 07:22 07/19/16 07:40 Glucose (Fingerstick) 198mg/dL (70-99) 161mg/dL (70-99) White Blood Count 8.2x10^3/uL (4.0-11.0) Red Blood Count 4.10x10^6/uL (4.30-5.70) Hemoglobin 11.2g/dL (13.0-17.5) Hematocrit 35.6% (39.0-53.0) Mean Corpuscular Volume 87fL (79-100) Mean Corpuscular Hemoglobin 27pg (25-35) Mean Corpuscular Hemoglobin Concent 32g/dL (31-37) Red Cell Distribution Width 16.2% (11.5-14.5) Platelet Count 427x10^3/uL (140-400) Neutrophils (%) (Auto) 76% (31-73) Lymphocytes (%) (Auto) 18% (24-48) Monocytes (%) (Auto) 4% (0-9) Eosinophils (%) (Auto) 2% (0-3) Basophils (%) (Auto) 1% (0-3) Neutrophils # (Auto) 6.2x10^3uL (1.8-7.7) Lymphocytes # (Auto) 1.5x10^3/uL (1.0-4.8) Monocytes # (Auto) 0.3x10^3/uL (0.0-1.1) Eosinophils # (Auto) 0.2x10^3/uL (0.0-0.7) Basophils # (Auto) 0.1x10^3/uL (0.0-0.2) Sodium Level 142mmol/L (136-145) Potassium Level 4.4mmol/L (3.5-5.1) Chloride Level 104mmol/L (98-107) Carbon Dioxide Level 31mmol/L (21-32) Anion Gap 7 (6-14) Blood Urea Nitrogen 13mg/dL (8-26) Creatinine 0.6mg/dL (0.7-1.3) Estimated GFR (Cockcroft-Gault) 139.9 Glucose Level 174mg/dL (70-99) Calcium Level 8.8mg/dL (8.5-10.1) Laboratory Tests Test 07/18/16 11:23 07/18/16 17:03 07/18/16 20:55 07/19/16 07:22 Glucose (Fingerstick) 265mg/dL (70-99) 229mg/dL (70-99) 198mg/dL (70-99) 161mg/dL (70-99) Test 07/19/16 07:40 White Blood Count 8.2x10^3/uL (4.0-11.0) Red Blood Count 4.10x10^6/uL (4.30-5.70) Hemoglobin 11.2g/dL (13.0-17.5) Hematocrit 35.6% (39.0-53.0) Mean Corpuscular Volume 87fL (79-100) Mean Corpuscular Hemoglobin 27pg (25-35) Mean Corpuscular Hemoglobin Concent 32g/dL (31-37) Red Cell Distribution Width 16.2% (11.5-14.5) Platelet Count 427x10^3/uL (140-400) Neutrophils (%) (Auto) 76% (31-73) Lymphocytes (%) (Auto) 18% (24-48) Monocytes (%) (Auto) 4% (0-9) Eosinophils (%) (Auto) 2% (0-3) Basophils (%) (Auto) 1% (0-3) Neutrophils # (Auto) 6.2x10^3uL (1.8-7.7) Lymphocytes # (Auto) 1.5x10^3/uL (1.0-4.8) Monocytes # (Auto) 0.3x10^3/uL (0.0-1.1) Eosinophils # (Auto) 0.2x10^3/uL (0.0-0.7) Basophils # (Auto) 0.1x10^3/uL (0.0-0.2) Sodium Level 142mmol/L (136-145) Potassium Level 4.4mmol/L (3.5-5.1) Chloride Level 104mmol/L (98-107) Carbon Dioxide Level 31mmol/L (21-32) Anion Gap 7 (6-14) Blood Urea Nitrogen 13mg/dL (8-26) Creatinine 0.6mg/dL (0.7-1.3) Estimated GFR (Cockcroft-Gault) 139.9 Glucose Level 174mg/dL (70-99) Calcium Level 8.8mg/dL (8.5-10.1) Medications Active Scripts Medications Dose Route/Sig Days Date Category Phenergan (Promethazine HCl) 25 Mg Supp.rect 25 Mg RC Q8HRS PRN 07/02/16 Rx Zofran Odt (Ondansetron) 4 Mg Tab.rapdis 1 Tab SL Q8HRS PRN 07/02/16 Rx Impression . 1. Abnormal CT of the chest revealing 1.3 cm nodule in the left lower lobe in a patient who has never smoked. 2. fever per Infectious Disease. 3. Staphylococcus aureus in the urine. 4. No evidence of septic emboli on current CT of the chest. 5. Staph sepsis - 07/11. ECHO reviewed. 6. Shoulder pain and warmth - improving + MSSA s/p I and D Plan . From a pulmonary standpoint of view, the patient is doing well. I discussed the above findings with his . I recommend followup CT of the chest in 3 months. she will make an appointment with Dr Espitia in October with ct chest prior to visit TULIO LAGOS MD Jul 19, 2016 10:40
[2016-07-19] MEDS ORDERED: ROCURONIUM 50 MG/5 ML VIAL. ONE (10:54)
[2016-07-19] MEDS ORDERED: EPHEDRINE PF IN SALINE 50 MG/5 ML DISP.SYRIN. IV ONE (11:05)
[2016-07-19] MEDS ORDERED: PHENYLEPHRINE in 0.9% NACL PF 1 MG/10 ML DISP.SYRIN. IV ONE ×2 (11:07→12:25)
[2016-07-19] MEDS ORDERED: SEVOFLURANE 31 TO 60 MINUTES. IH ONE (11:14)
--- NOTE | 2016-07-19 11:45 | PDOC ---
PROGRESS NOTES Chief Complaint Chief Complaint Shoulder pain Septic joint Bronchitis ASSESSMENT AND PLAN: 1. Septic L shoulder joint: s/p I&D in OR on 07/[address] Wallace. s /p Irrigation and debridement, wound vac removal, closure with packing placement on 07/19. 2. Sepsis: resolved. blood cultures with MSSA on 07/11 and 07/14. HARISH today, results pending, continue IV cefazolin, ID following. 3. Pain control: has IV morphine; Recumbant to even take PO meds 4. NELIDA: PoA, vasomotor. now resolved 5. Hyponatremia: POA. now resolved 6. DM2: poor control at home (HgbA1c 11), fair control here. on long- and short-acting insulin plus ISS 7. UTI: POA. culture with MSSA 8. Bronchitis: POA. essentially resolved. minor cough persisting 9. LLL lung nodule: OP F/U 10. 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 change to oral once stable. 11. Hypoalbuminemia: severe, in BMI 38. 12. Obesity - BMI 38 History of Present Illness History of Present Illness seen after the surgery fatigue at bedside no complaints. Vitals Vitals Vital Signs Date Time Temp Pulse Resp B/P Pulse Ox O2 Delivery O2 Flow Rate FiO2 07/19/16 10:45 98.4 77 24 146/69 95 Room Air 2.0 98.4 Physical Exam General: Alert, Oriented X3, Cooperative, No acute distress Heart: Regular rate, Normal S1, Normal S2, No murmurs Lungs: Clear, Other (No wheezing) Abdomen: Soft, No tenderness Extremities: Other Skin: No rashes, No breakdown, Other Labs LABS Laboratory Tests Test 07/18/16 17:03 07/18/16 20:55 07/19/16 07:22 07/19/16 07:40 Glucose (Fingerstick) 229mg/dL (70-99) 198mg/dL (70-99) 161mg/dL (70-99) White Blood Count 8.2x10^3/uL (4.0-11.0) Red Blood Count 4.10x10^6/uL (4.30-5.70) Hemoglobin 11.2g/dL (13.0-17.5) Hematocrit 35.6% (39.0-53.0) Mean Corpuscular Volume 87fL (79-100) Mean Corpuscular Hemoglobin 27pg (25-35) Mean Corpuscular Hemoglobin Concent 32g/dL (31-37) Red Cell Distribution Width 16.2% (11.5-14.5) Platelet Count 427x10^3/uL (140-400) Neutrophils (%) (Auto) 76% (31-73) Lymphocytes (%) (Auto) 18% (24-48) Monocytes (%) (Auto) 4% (0-9) Eosinophils (%) (Auto) 2% (0-3) Basophils (%) (Auto) 1% (0-3) Neutrophils # (Auto) 6.2x10^3uL (1.8-7.7) Lymphocytes # (Auto) 1.5x10^3/uL (1.0-4.8) Monocytes # (Auto) 0.3x10^3/uL (0.0-1.1) Eosinophils # (Auto) 0.2x10^3/uL (0.0-0.7) Basophils # (Auto) 0.1x10^3/uL (0.0-0.2) Sodium Level 142mmol/L (136-145) Potassium Level 4.4mmol/L (3.5-5.1) Chloride Level 104mmol/L (98-107) Carbon Dioxide Level 31mmol/L (21-32) Anion Gap 7 (6-14) Blood Urea Nitrogen 13mg/dL (8-26) Creatinine 0.6mg/dL (0.7-1.3) Estimated GFR (Cockcroft-Gault) 139.9 Glucose Level 174mg/dL (70-99) Calcium Level 8.8mg/dL (8.5-10.1) Test 07/19/16 10:42 Glucose (Fingerstick) 177mg/dL (70-99) Assessment and Plan Assessmemt and Plan Problems Medical Problems: (1) Acute renal injury Status: Acute (2) Dehydration Status: Acute (3) Hyponatremia Status: Acute (4) Nausea & vomiting Status: Acute (5) Uncontrolled diabetes mellitus Status: Acute Problems: Comment Review of Relevant I have reviewed the following items [place] (where applicable) has been applied. Labs Laboratory Tests Test 07/17/16 17:07 07/17/16 20:52 07/18/16 07:07 07/18/16 08:30 Glucose (Fingerstick) 290mg/dL (70-99) 232mg/dL (70-99) 131mg/dL (70-99) White Blood Count 8.9x10^3/uL (4.0-11.0) Red Blood Count 3.94x10^6/uL (4.30-5.70) Hemoglobin 10.8g/dL (13.0-17.5) Hematocrit 33.2% (39.0-53.0) Mean Corpuscular Volume 84fL (79-100) Mean Corpuscular Hemoglobin 28pg (25-35) Mean Corpuscular Hemoglobin Concent 33g/dL (31-37) Red Cell Distribution Width 15.8% (11.5-14.5) Platelet Count 410x10^3/uL (140-400) Neutrophils (%) (Auto) 78% (31-73) Lymphocytes (%) (Auto) 16% (24-48) Monocytes (%) (Auto) 4% (0-9) Eosinophils (%) (Auto) 1% (0-3) Basophils (%) (Auto) 1% (0-3) Neutrophils # (Auto) 6.9x10^3uL (1.8-7.7) Lymphocytes # (Auto) 1.4x10^3/uL (1.0-4.8) Monocytes # (Auto) 0.4x10^3/uL (0.0-1.1) Eosinophils # (Auto) 0.1x10^3/uL (0.0-0.7) Basophils # (Auto) 0.1x10^3/uL (0.0-0.2) Prothrombin Time 15.4SEC (11.7-14.0) Prothromb Time International Ratio 1.3 (0.8-1.1) Sodium Level 140mmol/L (136-145) Potassium Level 4.4mmol/L (3.5-5.1) Chloride Level 105mmol/L (98-107) Carbon Dioxide Level 31mmol/L (21-32) Anion Gap 4 (6-14) Blood Urea Nitrogen 13mg/dL (8-26) Creatinine 0.7mg/dL (0.7-1.3) Estimated GFR (Cockcroft-Gault) 117.1 Glucose Level 200mg/dL (70-99) Calcium Level 8.5mg/dL (8.5-10.1) Test 07/18/16 09:44 07/18/16 11:23 07/18/16 17:03 07/18/16 20:55 Stool Occult Blood Negative (NEG) Glucose (Fingerstick) 265mg/dL (70-99) 229mg/dL (70-99) 198mg/dL (70-99) Test 07/19/16 07:22 07/19/16 07:40 07/19/16 10:42 Glucose (Fingerstick) 161mg/dL (70-99) 177mg/dL (70-99) White Blood Count 8.2x10^3/uL (4.0-11.0) Red Blood Count 4.10x10^6/uL (4.30-5.70) Hemoglobin 11.2g/dL (13.0-17.5) Hematocrit 35.6% (39.0-53.0) Mean Corpuscular Volume 87fL (79-100) Mean Corpuscular Hemoglobin 27pg (25-35) Mean Corpuscular Hemoglobin Concent 32g/dL (31-37) Red Cell Distribution Width 16.2% (11.5-14.5) Platelet Count 427x10^3/uL (140-400) Neutrophils (%) (Auto) 76% (31-73) Lymphocytes (%) (Auto) 18% (24-48) Monocytes (%) (Auto) 4% (0-9) Eosinophils (%) (Auto) 2% (0-3) Basophils (%) (Auto) 1% (0-3) Neutrophils # (Auto) 6.2x10^3uL (1.8-7.7) Lymphocytes # (Auto) 1.5x10^3/uL (1.0-4.8) Monocytes # (Auto) 0.3x10^3/uL (0.0-1.1) Eosinophils # (Auto) 0.2x10^3/uL (0.0-0.7) Basophils # (Auto) 0.1x10^3/uL (0.0-0.2) Sodium Level 142mmol/L (136-145) Potassium Level 4.4mmol/L (3.5-5.1) Chloride Level 104mmol/L (98-107) Carbon Dioxide Level 31mmol/L (21-32) Anion Gap 7 (6-14) Blood Urea Nitrogen 13mg/dL (8-26) Creatinine 0.6mg/dL (0.7-1.3) Estimated GFR (Cockcroft-Gault) 139.9 Glucose Level 174mg/dL (70-99) Calcium Level 8.8mg/dL (8.5-10.1) Laboratory Tests Test 07/18/16 17:03 07/18/16 20:55 07/19/16 07:22 07/19/16 07:40 Glucose (Fingerstick) 229mg/dL (70-99) 198mg/dL (70-99) 161mg/dL (70-99) White Blood Count 8.2x10^3/uL (4.0-11.0) Red Blood Count 4.10x10^6/uL (4.30-5.70) Hemoglobin 11.2g/dL (13.0-17.5) Hematocrit 35.6% (39.0-53.0) Mean Corpuscular Volume 87fL (79-100) Mean Corpuscular Hemoglobin 27pg (25-35) Mean Corpuscular Hemoglobin Concent 32g/dL (31-37) Red Cell Distribution Width 16.2% (11.5-14.5) Platelet Count 427x10^3/uL (140-400) Neutrophils (%) (Auto) 76% (31-73) Lymphocytes (%) (Auto) 18% (24-48) Monocytes (%) (Auto) 4% (0-9) Eosinophils (%) (Auto) 2% (0-3) Basophils (%) (Auto) 1% (0-3) Neutrophils # (Auto) 6.2x10^3uL (1.8-7.7) Lymphocytes # (Auto) 1.5x10^3/uL (1.0-4.8) Monocytes # (Auto) 0.3x10^3/uL (0.0-1.1) Eosinophils # (Auto) 0.2x10^3/uL (0.0-0.7) Basophils # (Auto) 0.1x10^3/uL (0.0-0.2) Sodium Level 142mmol/L (136-145) Potassium Level 4.4mmol/L (3.5-5.1) Chloride Level 104mmol/L (98-107) Carbon Dioxide Level 31mmol/L (21-32) Anion Gap 7 (6-14) Blood Urea Nitrogen 13mg/dL (8-26) Creatinine 0.6mg/dL (0.7-1.3) Estimated GFR (Cockcroft-Gault) 139.9 Glucose Level 174mg/dL (70-99) Calcium Level 8.8mg/dL (8.5-10.1) Test 07/19/16 10:42 Glucose (Fingerstick) 177mg/dL (70-99) Microbiology 07/17/16 Blood Culture - Preliminary, Resulted NO GROWTH AFTER 2 DAYS 07/09/16 Urine Culture - Final, Complete 07/09/16 Urine Culture Result 1 (EMILI) - Final, Complete 07/09/16 Antimicrobic Susceptibility - Final, Complete 07/14/16 Anaerobic/Aerobic Culture - Preliminary, Resulted 07/14/16 Anaerobic Culture Result 1 (EMILI) - Preliminary, Resulted 07/14/16 Aerobic Culture - Final, Resulted 07/14/16 Aerobic Culture Result 1 (EMILI) - Final, Resulted 07/14/16 Antimicrobic Susceptibility - Final, Resulted Medications Current Medications Sodium Chloride (Iv Sodium Chloride 0.9% 1000ml Bag) 1,000 ml @ 1,000 mls/hr Q1H IV Last administered on 07/09/16 19:34; Start 07/09/16 at 19:18; Stop at 20:17; Status DC Hydromorphone HCl (Dilaudid) 2 mg 1X ONCE IV ; Start 07/09/16 at 19:30; Stop at 19:30; Status DC Ondansetron HCl (Zofran) 4 mg 1X ONCE IV Last administered on 07/09/16 19:33 ; Start 07/09/16 at 19:30; Stop 07/09/16 at 19:31; Status DC Hydromorphone HCl (Dilaudid) 1 mg 1X ONCE IV Last administered on 07/09/16 19 :33; Start 07/09/16 at 19:30; Stop 07/09/16 at 19:31; Status DC Ondansetron HCl (Zofran) 4 mg PRN Q8HRS PRN IV NAUSEA/VOMITING; Start 07/09/16 at 20:30; Stop 07/09/16 at 21:00; Status DC Morphine Sulfate 4 mg 4 mg PRN Q2HR PRN IV PAIN Last administered on 07/10/16 06:36; Start 07/09/16 at 20:30; Stop 07/10/16 at 13:00; Status DC Sodium Chloride (Iv Sodium Chloride 0.9% 1000ml Bag) 1,000 ml @ 150 mls/hr Q6H40M IV Last administered on 07/09/16 20:41; Start 07/09/16 at 20:24; Stop 07/10/16 at 15:29; Status DC Acetaminophen (Tylenol) 650 mg PRN Q4HRS PRN PO FEVER; Start 07/09/16 at 20:30 ; Stop 07/09/16 at 21:00; Status DC Acetaminophen (Tylenol) 650 mg PRN Q6HRS PRN PO FEVER; Start 07/09/16 at 21:00 ; Stop 07/10/16 at 15:28; Status DC Ondansetron HCl 4 mg 4 mg PRN Q6HRS PRN IV NAUSEA/VOMITING Last administered on 07/15/16 22:34; Start 07/09/16 at 21:00 Sodium Chloride (Iv Sodium Chloride 0.9% 1000ml Bag) 1,000 ml @ 150 mls/hr Q6H40M IV Last administered on 07/13/16 17:59; Start 07/09/16 at 21:00; Stop 07/13/16 at 19:27; Status DC Insulin Aspart (Novolog) 0-9 UNITS TIDWMEALS SQ Last administered on 07/18/16 17:20; Start 07/10/16 at 08:00 Dextrose 12.5 gm 12.5 gm PRN Q15MIN PRN IV SEE COMMENTS; Start 07/09/16 at 21: 00 Levofloxacin/ Dextrose (LEVAQUIN 500mg PREMIX) 100 ml @ 100 mls/hr Q24H IV Last administered on 07/12/16 02:49; Start 07/09/16 at 22:00; Stop 07/12/16 at 10:37; Status DC Guaifenesin (Mucinex) 600 mg BID PO Last administered on 07/18/16 21:06; Start 07/09/16 at 21:00 Albuterol Sulfate 2.5 mg 2.5 mg PRN Q4HRS PRN NEB SHORTNESS OF BREATH; Start at 21:00 Sodium Chloride (Iv Sodium Chloride 0.9% 1000ml Bag) 1,000 ml @ 0 mls/hr 1X ONCE IV Last administered on 07/10/16 10:27; Start 07/10/16 at 10:30; Stop at 10:31; Status DC Alprazolam (Xanax) 0.5 mg PRN Q8HRS PRN PO ANXIETY / AGITATION Last administered on 07/13/16 00:52; Start 07/10/16 at 13:00 Acetaminophen/ Hydrocodone Bitart (Lortab 5/325) 1 tab PRN Q6HRS PRN PO MODERATE - SEVERE PAIN Last administered on 07/18/16 21:07; Start 07/10/16 at 13:00 Acetaminophen (Tylenol) 650 mg PRN Q6HRS PRN PO MILD PAIN / TEMP Last administered on 07/14/16 00:08; Start 07/10/16 at 13:00 Heparin Sodium (Porcine) 5000 unit 5,000 unit Q8HRS SQ Last administered on 14:02; Start 07/10/16 at 14:00; Stop 07/11/16 at 22:55; Status DC Magnesium Sulfate/ Dextrose (Magnesium Sulfate PREMIX 2GM) 50 ml @ 25 mls/hr PRN DAILY PRN IV for Mag < 1.7 on am labs; Start 07/10/16 at 14:00 Diphenhydramine HCl (Benadryl) 25 mg PRN Q6HRS PRN IVP ITCHING Last administered on 07/13/16 01:52; Start 07/11/16 at 01:30 Lorazepam 2 mg 2 mg PRN Q4HRS PRN IV ANXIETY / AGITATION Last administered on 10:19; Start 07/11/16 at 01:30 Albumin Human (Albuminar) 100 ml @ 100 mls/hr TID IV Last administered on 07/13 13:56; Start 07/11/16 at 14:00; Stop 07/13/16 at 09:59; Status DC Insulin Aspart (Novolog) 10 units TIDAC SQ Last administered on 07/12/16 08:46 ; Start 07/11/16 at 12:30; Stop 07/12/16 at 09:17; Status DC Insulin Detemir 25 units 25 units QHS SQ Last administered on 07/12/16 01:48; Start 07/11/16 at 21:00; Stop 07/12/16 at 09:17; Status DC Heparin Sodium/ Dextrose 500 ml @ 0 mls/hr CONT PRN IV SEE I/O RECORD Last administered on 07/13/16 12:12; Start 07/11/16 at 23:00; Stop 07/13/16 at 12:32 ; Status DC Heparin Sodium (Porcine) 3,800 unit PRN Q6HRS PRN IV FOR UFH LEVEL LESS THAN 0.2 Last administered on 07/12/16 19:37; Start 07/11/16 at 23:00; Stop at 12:32; Status DC Heparin Sodium (Porcine) 1,900 unit PRN Q6HRS PRN IV FOR UFH LEVEL 0.2 - 0.29 Last administered on 07/13/16 02:33; Start 07/11/16 at 23:00; Stop 07/13/16 at 12:32; Status DC Warfarin Sodium (Coumadin Per Pharmacy) 1 each PRN DAILY PRN MC PER PROTOCOL Last administered on 07/17/16 13:43; Start 07/11/16 at 23:00 Warfarin Sodium (Coumadin) 5 mg 1X ONCE PO Last administered on 07/12/16 01: 45; Start 07/12/16 at 00:15; Stop 07/12/16 at 00:16; Status DC Info (Anti-Coagulation Monitoring By Pharmacy) 1 each PRN DAILY PRN MC SEE COMMENTS Last administered on 07/16/16 14:36; Start 07/11/16 at 23:45 Heparin Sodium (Porcine) 10,000 unit 1X ONCE IV Last administered on 01:48; Start 07/12/16 at 01:15; Stop 07/12/16 at 01:16; Status DC Insulin Aspart (Novolog) 12 units TIDAC SQ Last administered on 07/13/16 12:08 ; Start 07/12/16 at 11:30; Stop 07/13/16 at 12:32; Status DC Insulin Detemir (Levemir) 30 units QHS SQ Last administered on 07/12/16 21:07 ; Start 07/12/16 at 21:00; Stop 07/13/16 at 12:32; Status DC Tramadol HCl (Ultram) 50 mg PRN Q6HRS PRN PO PAIN; Start 07/12/16 at 10:15 Tramadol HCl (Ultram) 50 mg 1X ONCE PO Last administered on 07/12/16 14:32; Start 07/12/16 at 10:15; Stop 07/12/16 at 10:29; Status DC Methylprednisolone Acetate (Depo-Medrol 40mg Vial) 40 mg 1X ONCE IM ; Start at 10:30; Stop 07/12/16 at 10:31; Status DC Bupivacaine HCl (Sensorcaine-Mpf 0.25%) 10 ml 1X ONCE IJ ; Start 07/12/16 at 10 :30; Stop 07/12/16 at 10:31; Status DC Hydromorphone HCl 1 mg 1 mg 1X ONCE IV Last administered on 07/12/16 10:55; Start 07/12/16 at 10:30; Stop 07/12/16 at 10:46; Status DC Cefazolin Sodium 2 gm/Sodium Chloride 50 ml @ 100 mls/hr Q8HRS IV ; Start 07/12 at 11:00; Status Cancel Cefazolin Sodium/ Sodium Chloride (Ancef/Iv Sodium Chloride 0.9% 50ml) 50 ml @ 100 mls/hr Q8HRS IV Last administered on 07/19/16 05:42; Start 07/12/16 at 11: 00 Warfarin Sodium (Coumadin) 6 mg 1X WARF ONCE PO Last administered on 17:58; Start 07/12/16 at 16:00; Stop 07/12/16 at 16:01; Status DC Hydromorphone HCl (Dilaudid) 1 mg PRN Q4HRS PRN IVP PAIN Last administered on 22:25; Start 07/12/16 at 15:30 Polyethylene Glycol (miraLAX PACKET) 17 gm BID PO Last administered on 08:07; Start 07/12/16 at 21:00 Docusate Sodium (Colace) 100 mg PRN DAILY PRN PO CONSTIPATION; Start 07/12/16 at 15:30 Docusate Sodium (Colace) 100 mg DAILY PO Last administered on 07/15/16 08:07; Start 07/13/16 at 09:00 Magnesium Hydroxide (Milk Of Magnesia) 2,400 mg PRN DAILY PRN PO CONSTIPATION; Start 07/12/16 at 15:30 Gadobutrol (Gadavist) 7 mmol 1X ONCE IV Last administered on 07/13/16 10:45; Start 07/13/16 at 10:45; Stop 07/13/16 at 10:51; Status DC Gadobutrol (Gadavist) 7 mmol 1X ONCE IV Last administered on 07/13/16 10:45; Start 07/13/16 at 10:45; Stop 07/13/16 at 10:51; Status DC Warfarin Sodium (Coumadin) 10 mg 1X WARF ONCE PO Last administered on 17:56; Start 07/13/16 at 16:00; Stop 07/13/16 at 16:01; Status DC Enoxaparin Sodium (Lovenox Per Pharmacy Treatment Dosing) 1 each PRN DAILY PRN MC SEE COMMENTS; Start 07/13/16 at 12:30 Insulin Aspart (Novolog) 15 units TIDAC SQ Last administered on 07/18/16 17:21 ; Start 07/13/16 at 16:30 Insulin Detemir (Levemir) 40 units QHS SQ Last administered on 07/18/16 21:16 ; Start 07/13/16 at 21:00 Enoxaparin Sodium (Lovenox 150mg Syringe) 140 mg BID SQ Last administered on 08:20; Start 07/13/16 at 21:00 Warfarin Sodium (Coumadin) 15 mg 1X WARF ONCE PO ; Start 07/14/16 at 16:00; Stop 07/14/16 at 16:01; Status DC Ondansetron HCl (Zofran) 4 mg PRN Q6HRS PRN IV Nausea; Start 07/14/16 at 13:45 ; Stop 07/14/16 at 20:00; Status DC Fentanyl Citrate (Fentanyl 2ml Vial) 25 mcg PRN Q5MIN PRN IV MILD PAIN; Start 07/14/16 at 13:45; Stop 07/14/16 at 20:00; Status DC Fentanyl Citrate (Fentanyl 2ml Vial) 50 mcg PRN Q5MIN PRN IV MODERATE PAIN Last administered on 07/14/16t 18:15; Start 07/14/16 at 13:45; Stop 07/15/16 at 20:00; Status DC Morphine Sulfate 1 mg 1 mg PRN Q10MIN PRN IV SEVERE PAIN; Start 07/14/16 at 13: 45; Stop 07/14/16 at 20:00; Status DC Lactated Ringer's (Iv Lactated Ringers) 1,000 ml @ 30 mls/hr Q24H IV ; Start at 13:42; Stop 07/14/16 at 19:44; Status DC Lidocaine HCl 2 ml 1X PRN PRN ID IV START; Start 07/14/16 at 13:45; Stop at 20:00; Status DC Hydromorphone HCl (Dilaudid) 0.5 mg PRN Q10MIN PRN IV SEV PAIN,Second choice; Start 07/14/16 at 13:45; Stop 07/14/16 at 18:00; Status DC Prochlorperazine Edisylate (Compazine) 5 mg PACU PRN PRN IV NAUSEA Last administered on 07/14/16t 17:55; Start 07/14/16 at 13:45; Stop 07/14/16 at 20:00 ; Status DC Bupivacaine HCl/ Epinephrine Bitart 50 ml 50 ml STK-MED ONCE .ROUTE ; Start at 15:20; Stop 07/14/16 at 15:21; Status DC Propofol (Diprivan) 20 ml @ As Directed STK-MED ONCE IV ; Start 07/14/16 at 15: 26; Stop 07/14/16 at 15:27; Status DC Lidocaine HCl 100 mg STK-MED ONCE .ROUTE ; Start 07/14/16 at 15:26; Stop at 15:27; Status DC Fentanyl Citrate (Fentanyl 2ml Vial) 100 mcg STK-MED ONCE .ROUTE ; Start at 15:27; Stop 07/14/16 at 15:28; Status DC Rocuronium [place] (Zemuron) 50 mg STK-MED ONCE .ROUTE ; Start 07/14/16 at 15:27 ; Stop 07/14/16 at 15:28; Status DC Dexamethasone Sodium Phosphate (Decadron) 20 mg STK-MED ONCE .ROUTE ; Start at 16:34; Stop 07/14/16 at 16:35; Status DC Desflurane (Suprane) 30 ml STK-MED ONCE IH ; Start 07/14/16 at 16:35; Stop 07/14 at 16:36; Status DC Ondansetron HCl (Zofran) 4 mg STK-MED ONCE .ROUTE ; Start 07/14/16 at 16:46; Stop 07/14/16 at 16:47; Status DC Glycopyrrolate (Robinul) 1 mg STK-MED ONCE .ROUTE ; Start 07/14/16 at 16:46; Stop 07/14/16 at 16:47; Status DC Neostigmine Methylsulfate 5 mg STK-MED ONCE .ROUTE ; Start 07/14/16 at 16:46; Stop 07/14/16 at 16:47; Status DC Fentanyl Citrate (Fentanyl 2ml Vial) 100 mcg STK-MED ONCE .ROUTE ; Start at 16:57; Stop 07/14/16 at 16:58; Status DC Insulin Aspart 10 units 10 units 1X ONCE SQ Last administered on 07/15/16 08: 26; Start 07/15/16 at 08:30; Stop 07/15/16 at 08:31; Status DC Cefazolin Sodium/ Dextrose (Ancef 2gm Premix) 50 ml @ 100 mls/hr 1X PREOP PRN IV PER PROTOCOL Last administered on 07/16/16 05:56; Start 07/16/16 at 10:30; Stop 07/16/16 at 18:00; Status DC Insulin Aspart (Novolog) 15 units 1X ONCE SQ Last administered on 07/15/16 12 :25; Start 07/15/16 at 12:15; Stop 07/15/16 at 12:16; Status DC Warfarin Sodium (Coumadin - No Dose Today) 1 each 1X WARF ONCE MC Last administered on 07/15/16 16:00; Start 07/15/16 at 16:00; Stop 07/15/16 at 16:01 ; Status DC Rocuronium [place] (Zemuron) 50 mg STK-MED ONCE .ROUTE ; Start 07/16/16 at 09:56 ; Stop 07/16/16 at 09:57; Status DC Dexamethasone Sodium Phosphate (Decadron) 20 mg STK-MED ONCE .ROUTE ; Start at 09:58; Stop 07/16/16 at 09:59; Status DC Ondansetron HCl 4 mg 4 mg STK-MED ONCE .ROUTE ; Start 07/16/16 at 09:58; Stop at 09:59; Status DC Propofol (Diprivan) 20 ml @ As Directed STK-MED ONCE IV ; Start 07/16/16 at 09: 58; Stop 07/16/16 at 09:59; Status DC Lidocaine HCl 100 mg STK-MED ONCE .ROUTE ; Start 07/16/16 at 09:58; Stop at 09:59; Status DC Fentanyl Citrate (Fentanyl 5ml Vial) 250 mcg STK-MED ONCE .ROUTE ; Start at 09:58; Stop 07/16/16 at 09:59; Status DC Midazolam HCl (Versed) 2 mg STK-MED ONCE .ROUTE ; Start 07/16/16 at 09:58; Stop 07/16/16 at 09:59; Status DC Famotidine (Pepcid) 20 mg STK-MED ONCE .ROUTE ; Start 07/16/16 at 09:58; Stop at 09:59; Status DC Succinylcholine Chloride (Anectine) 200 mg STK-MED ONCE .ROUTE ; Start 07/16/16 at 10:10; Stop 07/16/16 at 10:11; Status DC Succinylcholine Chloride 200 mg 200 mg STK-MED ONCE .ROUTE ; Start 07/16/16 at 10:26; Stop 07/16/16 at 10:27; Status DC Acetaminophen (Ofirmev) 100 ml @ As Directed STK-MED ONCE IV ; Start 07/16/16 at 11:49; Stop 07/16/16 at 11:50; Status DC Glycopyrrolate (Robinul) 1 mg STK-MED ONCE .ROUTE ; Start 07/16/16 at 11:55; Stop 07/16/16 at 11:56; Status DC Neostigmine Methylsulfate 5 mg STK-MED ONCE .ROUTE ; Start 07/16/16 at 11:55; Stop 07/16/16 at 11:56; Status DC Ondansetron HCl (Zofran) 4 mg PRN Q6HRS PRN IV Nausea; Start 07/16/16 at 12:30 ; Stop 07/17/16 at 12:29; Status DC Fentanyl Citrate (Fentanyl 2ml Vial) 25 mcg PRN Q5MIN PRN IV MILD PAIN; Start 07/16/16 at 12:30; Stop 07/17/16 at 12:29; Status DC Fentanyl Citrate (Fentanyl 2ml Vial) 50 mcg PRN Q5MIN PRN IV MODERATE PAIN; Start 07/16/16 at 12:30; Stop 07/17/16 at 12:29; Status DC Morphine Sulfate 1 mg 1 mg PRN Q10MIN PRN IV SEVERE PAIN; Start 07/16/16 at 12: 30; Stop 07/17/16 at 12:29; Status DC Lactated Ringer's (Iv Lactated Ringers) 1,000 ml @ 30 mls/hr Q24H IV ; Start at 12:28; Stop 07/17/16 at 00:27; Status DC Lidocaine HCl 2 ml 1X PRN PRN ID IV START; Start 07/16/16 at 12:30; Stop at 12:29; Status DC Hydromorphone HCl (Dilaudid) 0.5 mg PRN Q10MIN PRN IV SEV PAIN,Second choice Last administered on 07/16/16t 14:38; Start 07/16/16 at 12:30; Stop 07/17/16 at 12:29; Status DC Prochlorperazine Edisylate (Compazine) 5 mg PACU PRN PRN IV NAUSEA; Start 07/16 at 12:30; Stop 07/17/16 at 12:29; Status DC Warfarin Sodium (Coumadin) 10 mg 1X WARF ONCE PO Last administered on 15:58; Start 07/16/16 at 16:00; Stop 07/16/16 at 16:01; Status DC Ondansetron HCl (Zofran) 4 mg PRN Q6HRS PRN IV Nausea; Start 07/19/16 at 07:00 ; Stop 07/20/16 at 06:59 Fentanyl Citrate (Fentanyl 2ml Vial) 25 mcg PRN Q5MIN PRN IV MILD PAIN; Start 07/19/16 at 07:00; Stop 07/20/16 at 06:59 Fentanyl Citrate (Fentanyl 2ml Vial) 50 mcg PRN Q5MIN PRN IV MODERATE PAIN; Start 07/19/16 at 07:00; Stop 07/20/16 at 06:59 Morphine Sulfate 1 mg 1 mg PRN Q10MIN PRN IV SEVERE PAIN; Start 07/19/16 at 07: 00; Stop 07/20/16 at 06:59 Lactated Ringer's (Iv Lactated Ringers) 1,000 ml @ 0 mls/hr Q0M IV Last administered on 07/19/16t 10:53; Start 07/19/16 at 07:00; Stop 07/19/16 at 18:59 Lidocaine HCl 2 ml 1X PRN PRN ID IV START; Start 07/19/16 at 07:00; Stop at 06:59 Hydromorphone HCl (Dilaudid) 0.5 mg PRN Q10MIN PRN IV SEVERE PAIN, Second choice; Start 07/19/16 at 07:00; Stop 07/20/16 at 06:59 Prochlorperazine Edisylate (Compazine) 5 mg PACU PRN PRN IV NAUSEA; Start 07/19 at 07:00; Stop 07/20/16 at 06:59 Sodium Chloride (Normal Saline Flush) 10 ml QSHIFT PRN IV AFTER MEDS AND BLOOD DRAWS; Start 07/17/16 at 12:00; Stop 07/17/16 at 12:06; Status DC Lidocaine HCl (Xylocaine 2% Topical 5gm Tube) 1 silvia 1X ONCE TP ; Start at 12:00; Stop 07/17/16 at 12:06; Status DC Lidocaine HCl (Viscous Lidocaine) 15 ml 1X ONCE MM ; Start 07/17/16 at 12:00; Stop 07/17/16 at 12:06; Status DC Benzocaine (Hurricaine One) 1 spray 1X ONCE MM ; Start 07/17/16 at 12:00; Stop 07/17/16 at 12:06; Status DC Bupivacaine HCl/ Epinephrine Bitart (Sensorcaine-Epi 0.25%-1:434984 Mpf) 30 ml STK-MED ONCE .ROUTE ; Start 07/19/16 at 07:20; Stop 07/19/16 at 07:21; Status DC Sodium Chloride (Normal Saline Flush) 10 ml QSHIFT PRN IV AFTER MEDS AND BLOOD DRAWS; Start 07/19/16 at 10:15 Lidocaine HCl (Xylocaine 2% Topical 5gm Tube) 1 silvia 1X ONCE TP ; Start at 10:15; Stop 07/19/16 at 10:16; Status DC Lidocaine HCl (Viscous Lidocaine) 15 ml 1X ONCE MM ; Start 07/19/16 at 10:15; Stop 07/19/16 at 10:16; Status DC Benzocaine 1 spray 1 spray 1X ONCE MM ; Start 07/19/16 at 10:15; Stop 07/19/16 at 10:16; Status DC Propofol (Diprivan) 20 ml @ As Directed STK-MED ONCE IV ; Start 07/19/16 at 10: 37; Stop 07/19/16 at 10:38; Status DC Lidocaine HCl 100 mg STK-MED ONCE .ROUTE ; Start 07/19/16 at 10:37; Stop at 10:38; Status DC Ondansetron HCl (Zofran) 4 mg STK-MED ONCE .ROUTE ; Start 07/19/16 at 10:37; Stop 07/19/16 at 10:38; Status DC Dexamethasone Sodium Phosphate (Decadron) 20 mg STK-MED ONCE .ROUTE ; Start at 10:37; Stop 07/19/16 at 10:38; Status DC Fentanyl Citrate (Fentanyl 2ml Vial) 100 mcg STK-MED ONCE .ROUTE ; Start at 10:37; Stop 07/19/16 at 10:38; Status DC Rocuronium [place] (Zemuron) 50 mg STK-MED ONCE .ROUTE ; Start 07/19/16 at 10:54 ; Stop 07/19/16 at 10:55; Status DC Ephedrine Sulfate 50 mg STK-MED ONCE IV ; Start 07/19/16 at 11:05; Stop at 11:06; Status DC Phenylephrine HCl 1 mg STK-MED ONCE IV ; Start 07/19/16 at 11:07; Stop 07/19/16 at 11:08; Status DC Sevoflurane (Ultane) 30 ml STK-MED ONCE IH ; Start 07/19/16 at 11:14; Stop 07/19 at 11:15; Status DC Active Scripts Active Phenergan (Promethazine HCl) 25 Mg Supp.rect 25 Mg RC Q8HRS PRN Zofran Odt (Ondansetron) 4 Mg Tab.rapdis 1 Tab SL Q8HRS PRN Vitals/I & O Vital Sign - Last 24 Hours 07/18/16 07/18/16 07/18/16 07/18/16 12:25 15:00 19:00 20:02 Temp 97.4 98.5 97.4 98.5 Pulse 78 98 Resp 20 20 B/P 140/68 148/70 Pulse Ox 96 96 O2 Delivery Room Air Room Air Room Air Room Air 07/18/16 07/18/16 07/18/16 07/19/16 21:07 22:07 23:00 07:00 Temp 98.6 98.4 98.6 98.4 Pulse 87 74 Resp 20 18 B/P 160/69 147/73 Pulse Ox 96 96 97 94 O2 Delivery Room Air Room Air Room Air Room Air O2 Flow Rate 2.0 07/19/16 07/19/16 10:29 10:45 Temp 99.5 98.4 99.5 98.4 Pulse 86 77 Resp 18 24 B/P 141/64 146/69 Pulse Ox 91 95 O2 Delivery Room Air Room Air O2 Flow Rate 2.0 Intake and Output 07/18/16 07/18/16 07/19/16 15:00 23:00 07:00 Intake Total 100 ml 410 ml Output Total 1000 ml Balance 100 ml -590 ml MANOHAR FITZPATRICK MD Jul 19, 2016 11:45
[2016-07-19] MEDS ORDERED: NEOSTIGMINE METHYLSULFATE 5 MG/5 ML SYRINGE. ONE (12:16)
[2016-07-19] MEDS ORDERED: GLYCOPYRROLATE 1 MG/5 ML VIAL. ONE (12:16)
[2016-07-19 15:00] VITALS: BP 134/57
--- NOTE | 2016-07-19 15:06 | PDOC ---
BRIEF OPERATIVE NOTE Date: Jul 19, 2016 Pre-Op Diagnosis Left septic ac arthritis with abscess Post-Op Diagnosis same Procedure Performed Irrigation and debridement, wound vac removal, closure with packing placement Surgeon Monalisa Pinto MD Pressure Controller none Anesthesia Type: General Blood Loss 25cc Specimens Obtained none Findings clean granulation bed, tunneling has lessened. healthy tissue bed. Complications none Additional Remarks He was packed with approximately 6 feet of 1 inch iodoform gauze into the space. There is approx a 1 inch opening in the skin still. We will attempt to dc the packing 1/2 daily on the floor. May need to return to the OR on for a final treatment and closure. MONALISA PINTO MD Jul 19, 2016 15:06
[2016-07-19] MEDS: HYDROCODONE/APAP 5/325MG TABLET. PO PRN ×2 (16:10→22:10)
[2016-07-19 17:02] VITALS: BP 134/57
[2016-07-19 19:00] VITALS: BP 139/70
[2016-07-19] MEDS: INSULIN DETEMIR 300 UNITS/3 ML INSULN.PEN. SQ SCH (21:05)
[2016-07-19 22:32] VITALS: BP 140/65
[2016-07-20 03:14] VITALS: BP 117/93
[2016-07-20] MEDS: NORMAL SALINE IV SCH ×3 (06:00→20:42)
[2016-07-20] MEDS: CEFAZOLIN SODIUM IV SCH ×3 (06:00→20:42)
[2016-07-20] MEDS: HYDROCODONE/APAP 5/325MG TABLET. PO PRN ×3 (06:27→20:43)
[2016-07-20 07:00] VITALS: BP 159/50
--- NOTE | 2016-07-20 07:35 | CARD ---
APPROVED REPORT EXAM: Two-dimensional and M-mode echocardiogram with Doppler and color Doppler. INDICATION R/o vegetations Reason For Test : Rule out endocarditis. PROCEDURE After obtaining informed consent, patient underwent transesophageal echo in the operation room. Type of Sedation : General Anesthesia Sedation was provided by anesthesiologist, see EMR for medications administered. Transesophageal probe was inserted and advanced into esophagus by Santana Singleton MD. The HARISH was performed without complications. Throughout the procedure, the blood pressure, pulse oximetry, cardiac rhythm, and rate were monitored . The patient tolerated the procedure without adverse effects. Recovery from conscious sedation was une ventful and vital signs were stable. LEFT VENTRICLE The left ventricle is normal size. There is normal left ventricular wall thickness. The left ventricu lar systolic function is normal and the ejection fraction is within normal range. The Ejection Fracti on is 60-65%. There is normal LV segmental wall motion. No left ventricle thrombus noted on this stud y. There is no left ventricular aneurysm. There is no mass noted in the left ventricle. RIGHT VENTRICLE The right ventricle is normal size. There is normal right ventricular wall thickness. The right ventr icular systolic function is normal. ATRIA The left atrium size is normal. The right atrium size is normal. The interatrial septum is intact wit h no evidence for an atrial septal defect or patent foramen ovale as noted on 2-D or Doppler imaging. There is no thrombus noted in the left atrial appendage. AORTIC VALVE The aortic valve is mildly sclerotic. Doppler and Color Flow revealed trace aortic regurgitation. The re is no significant aortic valvular stenosis. There is no aortic valvular vegetation. MITRAL VALVE The mitral valve is normal in structure and function. There is no evidence of mitral valve prolapse. There is no mitral valve stenosis. Doppler and Color Flow revealed mild mitral regurgitation. TRICUSPID VALVE The tricuspid valve is normal in structure and function. Doppler and Color Flow revealed no tricuspid valve regurgitation noted. There is no tricuspid valve prolapse or vegetation. PULMONIC VALVE The pulmonary valve is normal in structure and function. Doppler and Color Flow revealed no pulmonic valvular regurgitation. There is no pulmonic valvular stenosis. GREAT VESSELS The aortic root is normal in size. The ascending aorta is normal in size. The pulmonary artery is nor mal. The IVC is normal in size and collapses >50% with inspiration. Critical Notification Critical Value: No <Conclusion> The left ventricular systolic function is normal and the ejection fraction is within normal range. The Ejection Fraction is 60-65%. No evidence of endocarditis.
[2016-07-20 07:49] LABS: BASO # 0.1 x10^3/uL (0.0-0.2); BASO % 1 % (0-3); EOS % 1 % (0-3); HEMATOCRIT 30.2 % (39.0-53.0); HEMOGLOBIN 9.6 g/dL (13.0-17.5); LYMPH # 2.6 x10^3/uL (1.0-4.8); LYMPH % 28 % (24-48); MEAN CORPUSCULAR HEMOGLOBIN 28 pg (25-35); MEAN CORPUSCULAR HGB CONC 32 g/dL (31-37); MEAN CORPUSCULAR VOLUME 87 fL (79-100); MONO % 5 % (0-9); NEUT % 65 % (31-73); PLATELET COUNT 340 x10^3/uL (140-400); RED BLOOD COUNT 3.48 x10^6/uL (4.30-5.70); RED CELL DISTRIBUTION WIDTH 15.8 % (11.5-14.5); WHITE BLOOD COUNT 9.3 x10^3/uL (4.0-11.0)
[2016-07-20 07:59] LABS: CALCIUM 8.3 mg/dL (8.5-10.1); CREATININE 0.8 mg/dL (0.7-1.3); GFR 100.4; POTASSIUM 4.5 mmol/L (3.5-5.1)
[2016-07-20] MEDS: INSULIN ASPART 300 UNITS/3 ML INSULN.PEN SQ SCH ×6 (08:00→17:33)
[2016-07-20] MEDS: POLYETHYLENE GLYCOL 3350 17 GM PACKET. PO SCH ×2 (08:36→20:50)
[2016-07-20] MEDS: DOCUSATE SODIUM 100 MG CAPSULE PO SCH (08:37)
[2016-07-20] MEDS: GUAIFENESIN ER 600 MG TABLET.ER PO SCH ×2 (08:38→20:43)
[2016-07-20] MEDS: ENOXAPARIN ** NOTE DOSE ** SYRINGE SQ SCH ×2 (08:38→20:42)
--- NOTE | 2016-07-20 09:25 | PDOC ---
Infectious Disease Note Subjective Subjective Pt feeling much better today Mobility and pain in shoulder improving Continues to be afebrile Pain controlled Eating well, denies any diarrhea at this time ROS ROS GEN: Denies fevers, chills, sweats HEENT: Denies blurred vision, sore throat CV: Denies chest pain RESP: Denies shortness of air, complains of slight cough due to yesterday's HARISH GI: Denies n/v/d NEURO: Denies confusion, dizziness MSK: Denies weakness, joint pain/swelling Vital Sign Vital Signs Vital Signs Date Time Temp Pulse Resp B/P Pulse Ox O2 Delivery O2 Flow Rate FiO2 07/20/16 08:00 Room Air 07/20/16 07:27 95 07/20/16 07:00 98.5 75 19 159/50 98.5 07/20/16 06:27 2.0 Physical Exam PHYSICAL EXAM GENERAL: NAD, Alert, coop. In chair HEENT: PERRL, OC/OP NECK: Supple, no JVD, no LN LUNGS: Clear HEART: S1S2, no gallop, no murmur ABD: Soft, NT, no organomegaly, no rebound EXT: No edema, no cyanosis, bandage in place on left shoulder [employer]: Alert, oriented x 3, no focal neurologic deficit SKIN: No rash IV: ok Labs Lab Laboratory Tests Test 07/19/16 09:59 07/19/16 10:42 07/19/16 13:05 07/19/16 13:40 Glucose (Fingerstick) 166mg/dL (70-99) 177mg/dL (70-99) 172mg/dL (70-99) Clostridium difficile Toxin (PCR) Negative (Negative) Test 07/19/16 14:44 07/19/16 20:30 07/20/16 07:40 07/20/16 07:59 Glucose (Fingerstick) 190mg/dL (70-99) 344mg/dL (70-99) 128mg/dL (70-99) White Blood Count 9.3x10^3/uL (4.0-11.0) Red Blood Count 3.48x10^6/uL (4.30-5.70) Hemoglobin 9.6g/dL (13.0-17.5) Hematocrit 30.2% (39.0-53.0) Mean Corpuscular Volume 87fL (79-100) Mean Corpuscular Hemoglobin 28pg (25-35) Mean Corpuscular Hemoglobin Concent 32g/dL (31-37) Red Cell Distribution Width 15.8% (11.5-14.5) Platelet Count 340x10^3/uL (140-400) Neutrophils (%) (Auto) 65% (31-73) Lymphocytes (%) (Auto) 28% (24-48) Monocytes (%) (Auto) 5% (0-9) Eosinophils (%) (Auto) 1% (0-3) Basophils (%) (Auto) 1% (0-3) Neutrophils # (Auto) 6.0x10^3uL (1.8-7.7) Lymphocytes # (Auto) 2.6x10^3/uL (1.0-4.8) Monocytes # (Auto) 0.5x10^3/uL (0.0-1.1) Eosinophils # (Auto) 0.1x10^3/uL (0.0-0.7) Basophils # (Auto) 0.1x10^3/uL (0.0-0.2) Sodium Level 143mmol/L (136-145) Potassium Level 4.5mmol/L (3.5-5.1) Chloride Level 105mmol/L (98-107) Carbon Dioxide Level 30mmol/L (21-32) Anion Gap 8 (6-14) Blood Urea Nitrogen 15mg/dL (8-26) Creatinine 0.8mg/dL (0.7-1.3) Estimated GFR (Cockcroft-Gault) 100.4 Glucose Level 158mg/dL (70-99) Calcium Level 8.3mg/dL (8.5-10.1) Objective Assessment Fever - resolved Staph sepsis - 07/11. Repeat cx 07/17 NGTD Staph aureus in urine Shoulder pain and warmth - improving + MSSA s/p I and D ? Septic emboli in UE Leukocytosis - better DM Obesity Pulm nodule ? Incidental mass in abd Plan Plan of Care Continue Cefazolin Repeat BC from 07/17 NGTD. HARISH from 07/19 showed 60-65% EF with no evidence of endocarditis. D/w Dr. Singleton OR yesterday. Removed wound vac, placed packing. 1/2 is to be removed per day - Plan to return to OR for final closure needs tighter glucose control PICC today D/w MELA JAIMES MD Jul 20, 2016 09:25
--- NOTE | 2016-07-20 09:43 | PDOC ---
PROGRESS NOTES Subjective Subjective No new complaints. Objective Objective Vital Signs Date Time Temp Pulse Resp B/P Pulse Ox O2 Delivery O2 Flow Rate FiO2 07/20/16 08:00 Room Air 07/20/16 07:27 95 07/20/16 07:00 98.5 75 19 159/50 98.5 07/20/16 06:27 2.0 Intake and Output 07/20/16 07:00 Intake Total 2410 ml Output Total 450 ml Balance 1960 ml Intake Oral 1860 ml IV Total 550 ml Output Urine Total 375 ml Stool Total 75 ml # Voids 3 # Bowel Movements 1 Physical Exam Physical Exam He is sitting in bedside recliner and moving left shoulder better. Assessment Assessment Problems Medical Problems: (1) Acute renal injury Status: Acute (2) Dehydration Status: Acute (3) Hyponatremia Status: Acute (4) Nausea & vomiting Status: Acute (5) Uncontrolled diabetes mellitus Status: Acute Plan Plan of Care Agree with 's plan and home with out patient follow up when medically stable. Comment Review of Relevant I have reviewed the following items [place] (where applicable) has been applied. Labs Laboratory Tests Test 07/18/16 09:44 07/18/16 11:23 07/18/16 17:03 07/18/16 20:55 Stool Occult Blood Negative (NEG) Glucose (Fingerstick) 265mg/dL (70-99) 229mg/dL (70-99) 198mg/dL (70-99) Test 07/19/16 07:22 07/19/16 07:40 07/19/16 09:59 07/19/16 10:42 Glucose (Fingerstick) 161mg/dL (70-99) 166mg/dL (70-99) 177mg/dL (70-99) White Blood Count 8.2x10^3/uL (4.0-11.0) Red Blood Count 4.10x10^6/uL (4.30-5.70) Hemoglobin 11.2g/dL (13.0-17.5) Hematocrit 35.6% (39.0-53.0) Mean Corpuscular Volume 87fL (79-100) Mean Corpuscular Hemoglobin 27pg (25-35) Mean Corpuscular Hemoglobin Concent 32g/dL (31-37) Red Cell Distribution Width 16.2% (11.5-14.5) Platelet Count 427x10^3/uL (140-400) Neutrophils (%) (Auto) 76% (31-73) Lymphocytes (%) (Auto) 18% (24-48) Monocytes (%) (Auto) 4% (0-9) Eosinophils (%) (Auto) 2% (0-3) Basophils (%) (Auto) 1% (0-3) Neutrophils # (Auto) 6.2x10^3uL (1.8-7.7) Lymphocytes # (Auto) 1.5x10^3/uL (1.0-4.8) Monocytes # (Auto) 0.3x10^3/uL (0.0-1.1) Eosinophils # (Auto) 0.2x10^3/uL (0.0-0.7) Basophils # (Auto) 0.1x10^3/uL (0.0-0.2) Sodium Level 142mmol/L (136-145) Potassium Level 4.4mmol/L (3.5-5.1) Chloride Level 104mmol/L (98-107) Carbon Dioxide Level 31mmol/L (21-32) Anion Gap 7 (6-14) Blood Urea Nitrogen 13mg/dL (8-26) Creatinine 0.6mg/dL (0.7-1.3) Estimated GFR (Cockcroft-Gault) 139.9 Glucose Level 174mg/dL (70-99) Calcium Level 8.8mg/dL (8.5-10.1) Test 07/19/16 13:05 07/19/16 13:40 07/19/16 14:44 07/19/16 20:30 Glucose (Fingerstick) 172mg/dL (70-99) 190mg/dL (70-99) 344mg/dL (70-99) Clostridium difficile Toxin (PCR) Negative (Negative) Test 07/20/16 07:40 07/20/16 07:59 White Blood Count 9.3x10^3/uL (4.0-11.0) Red Blood Count 3.48x10^6/uL (4.30-5.70) Hemoglobin 9.6g/dL (13.0-17.5) Hematocrit 30.2% (39.0-53.0) Mean Corpuscular Volume 87fL (79-100) Mean Corpuscular Hemoglobin 28pg (25-35) Mean Corpuscular Hemoglobin Concent 32g/dL (31-37) Red Cell Distribution Width 15.8% (11.5-14.5) Platelet Count 340x10^3/uL (140-400) Neutrophils (%) (Auto) 65% (31-73) Lymphocytes (%) (Auto) 28% (24-48) Monocytes (%) (Auto) 5% (0-9) Eosinophils (%) (Auto) 1% (0-3) Basophils (%) (Auto) 1% (0-3) Neutrophils # (Auto) 6.0x10^3uL (1.8-7.7) Lymphocytes # (Auto) 2.6x10^3/uL (1.0-4.8) Monocytes # (Auto) 0.5x10^3/uL (0.0-1.1) Eosinophils # (Auto) 0.1x10^3/uL (0.0-0.7) Basophils # (Auto) 0.1x10^3/uL (0.0-0.2) Sodium Level 143mmol/L (136-145) Potassium Level 4.5mmol/L (3.5-5.1) Chloride Level 105mmol/L (98-107) Carbon Dioxide Level 30mmol/L (21-32) Anion Gap 8 (6-14) Blood Urea Nitrogen 15mg/dL (8-26) Creatinine 0.8mg/dL (0.7-1.3) Estimated GFR (Cockcroft-Gault) 100.4 Glucose Level 158mg/dL (70-99) Calcium Level 8.3mg/dL (8.5-10.1) Glucose (Fingerstick) 128mg/dL (70-99) Laboratory Tests Test 07/19/16 09:59 07/19/16 10:42 07/19/16 13:05 07/19/16 13:40 Glucose (Fingerstick) 166mg/dL (70-99) 177mg/dL (70-99) 172mg/dL (70-99) Clostridium difficile Toxin (PCR) Negative (Negative) Test 07/19/16 14:44 07/19/16 20:30 07/20/16 07:40 07/20/16 07:59 Glucose (Fingerstick) 190mg/dL (70-99) 344mg/dL (70-99) 128mg/dL (70-99) White Blood Count 9.3x10^3/uL (4.0-11.0) Red Blood Count 3.48x10^6/uL (4.30-5.70) Hemoglobin 9.6g/dL (13.0-17.5) Hematocrit 30.2% (39.0-53.0) Mean Corpuscular Volume 87fL (79-100) Mean Corpuscular Hemoglobin 28pg (25-35) Mean Corpuscular Hemoglobin Concent 32g/dL (31-37) Red Cell Distribution Width 15.8% (11.5-14.5) Platelet Count 340x10^3/uL (140-400) Neutrophils (%) (Auto) 65% (31-73) Lymphocytes (%) (Auto) 28% (24-48) Monocytes (%) (Auto) 5% (0-9) Eosinophils (%) (Auto) 1% (0-3) Basophils (%) (Auto) 1% (0-3) Neutrophils # (Auto) 6.0x10^3uL (1.8-7.7) Lymphocytes # (Auto) 2.6x10^3/uL (1.0-4.8) Monocytes # (Auto) 0.5x10^3/uL (0.0-1.1) Eosinophils # (Auto) 0.1x10^3/uL (0.0-0.7) Basophils # (Auto) 0.1x10^3/uL (0.0-0.2) Sodium Level 143mmol/L (136-145) Potassium Level 4.5mmol/L (3.5-5.1) Chloride Level 105mmol/L (98-107) Carbon Dioxide Level 30mmol/L (21-32) Anion Gap 8 (6-14) Blood Urea Nitrogen 15mg/dL (8-26) Creatinine 0.8mg/dL (0.7-1.3) Estimated GFR (Cockcroft-Gault) 100.4 Glucose Level 158mg/dL (70-99) Calcium Level 8.3mg/dL (8.5-10.1) Microbiology 07/17/16 Blood Culture - Preliminary, Resulted NO GROWTH AFTER 3 DAYS 07/09/16 Urine Culture - Final, Complete 07/09/16 Urine Culture Result 1 (EMILI) - Final, Complete 07/09/16 Antimicrobic Susceptibility - Final, Complete 07/14/16 Anaerobic/Aerobic Culture - Preliminary, Resulted 07/14/16 Anaerobic Culture Result 1 (EMILI) - Preliminary, Resulted 07/14/16 Aerobic Culture - Final, Resulted 07/14/16 Aerobic Culture Result 1 (EMILI) - Final, Resulted 07/14/16 Antimicrobic Susceptibility - Final, Resulted Medications Current Medications Sodium Chloride (Iv Sodium Chloride 0.9% 1000ml Bag) 1,000 ml @ 1,000 mls/hr Q1H IV Last administered on 07/09/16 19:34; Start 07/09/16 at 19:18; Stop at 20:17; Status DC Hydromorphone HCl (Dilaudid) 2 mg 1X ONCE IV ; Start 07/09/16 at 19:30; Stop at 19:30; Status DC Ondansetron HCl (Zofran) 4 mg 1X ONCE IV Last administered on 07/09/16 19:33 ; Start 07/09/16 at 19:30; Stop 07/09/16 at 19:31; Status DC Hydromorphone HCl (Dilaudid) 1 mg 1X ONCE IV Last administered on 07/09/16 19 :33; Start 07/09/16 at 19:30; Stop 07/09/16 at 19:31; Status DC Ondansetron HCl (Zofran) 4 mg PRN Q8HRS PRN IV NAUSEA/VOMITING; Start 07/09/16 at 20:30; Stop 07/09/16 at 21:00; Status DC Morphine Sulfate 4 mg 4 mg PRN Q2HR PRN IV PAIN Last administered on 07/10/16 06:36; Start 07/09/16 at 20:30; Stop 07/10/16 at 13:00; Status DC Sodium Chloride (Iv Sodium Chloride 0.9% 1000ml Bag) 1,000 ml @ 150 mls/hr Q6H40M IV Last administered on 07/09/16 20:41; Start 07/09/16 at 20:24; Stop 07/10/16 at 15:29; Status DC Acetaminophen (Tylenol) 650 mg PRN Q4HRS PRN PO FEVER; Start 07/09/16 at 20:30 ; Stop 07/09/16 at 21:00; Status DC Acetaminophen (Tylenol) 650 mg PRN Q6HRS PRN PO FEVER; Start 07/09/16 at 21:00 ; Stop 07/10/16 at 15:28; Status DC Ondansetron HCl 4 mg 4 mg PRN Q6HRS PRN IV NAUSEA/VOMITING Last administered on 07/15/16 22:34; Start 07/09/16 at 21:00 Sodium Chloride (Iv Sodium Chloride 0.9% 1000ml Bag) 1,000 ml @ 150 mls/hr Q6H40M IV Last administered on 07/13/16 17:59; Start 07/09/16 at 21:00; Stop 07/13/16 at 19:27; Status DC Insulin Aspart (Novolog) 0-9 UNITS TIDWMEALS SQ Last administered on 07/19/16 16:20; Start 07/10/16 at 08:00 Dextrose 12.5 gm 12.5 gm PRN Q15MIN PRN IV SEE COMMENTS; Start 07/09/16 at 21: 00 Levofloxacin/ Dextrose (LEVAQUIN 500mg PREMIX) 100 ml @ 100 mls/hr Q24H IV Last administered on 07/12/16 02:49; Start 07/09/16 at 22:00; Stop 07/12/16 at 10:37; Status DC Guaifenesin (Mucinex) 600 mg BID PO Last administered on 07/20/16 08:38; Start 07/09/16 at 21:00 Albuterol Sulfate 2.5 mg 2.5 mg PRN Q4HRS PRN NEB SHORTNESS OF BREATH; Start at 21:00 Sodium Chloride (Iv Sodium Chloride 0.9% 1000ml Bag) 1,000 ml @ 0 mls/hr 1X ONCE IV Last administered on 07/10/16 10:27; Start 07/10/16 at 10:30; Stop at 10:31; Status DC Alprazolam (Xanax) 0.5 mg PRN Q8HRS PRN PO ANXIETY / AGITATION Last administered on 07/13/16 00:52; Start 07/10/16 at 13:00 Acetaminophen/ Hydrocodone Bitart (Lortab 5/325) 1 tab PRN Q6HRS PRN PO MODERATE - SEVERE PAIN Last administered on 07/20/16 06:27; Start 07/10/16 at 13:00 Acetaminophen (Tylenol) 650 mg PRN Q6HRS PRN PO MILD PAIN / TEMP Last administered on 07/14/16 00:08; Start 07/10/16 at 13:00 Heparin Sodium (Porcine) 5000 unit 5,000 unit Q8HRS SQ Last administered on 14:02; Start 07/10/16 at 14:00; Stop 07/11/16 at 22:55; Status DC Magnesium Sulfate/ Dextrose (Magnesium Sulfate PREMIX 2GM) 50 ml @ 25 mls/hr PRN DAILY PRN IV for Mag < 1.7 on am labs; Start 07/10/16 at 14:00 Diphenhydramine HCl (Benadryl) 25 mg PRN Q6HRS PRN IVP ITCHING Last administered on 07/13/16 01:52; Start 07/11/16 at 01:30 Lorazepam 2 mg 2 mg PRN Q4HRS PRN IV ANXIETY / AGITATION Last administered on 10:19; Start 07/11/16 at 01:30 Albumin Human (Albuminar) 100 ml @ 100 mls/hr TID IV Last administered on 07/13 13:56; Start 07/11/16 at 14:00; Stop 07/13/16 at 09:59; Status DC Insulin Aspart (Novolog) 10 units TIDAC SQ Last administered on 07/12/16 08:46 ; Start 07/11/16 at 12:30; Stop 07/12/16 at 09:17; Status DC Insulin Detemir 25 units 25 units QHS SQ Last administered on 07/12/16 01:48; Start 07/11/16 at 21:00; Stop 07/12/16 at 09:17; Status DC Heparin Sodium/ Dextrose 500 ml @ 0 mls/hr CONT PRN IV SEE I/O RECORD Last administered on 07/13/16 12:12; Start 07/11/16 at 23:00; Stop 07/13/16 at 12:32 ; Status DC Heparin Sodium (Porcine) 3,800 unit PRN Q6HRS PRN IV FOR UFH LEVEL LESS THAN 0.2 Last administered on 07/12/16 19:37; Start 07/11/16 at 23:00; Stop at 12:32; Status DC Heparin Sodium (Porcine) 1,900 unit PRN Q6HRS PRN IV FOR UFH LEVEL 0.2 - 0.29 Last administered on 07/13/16 02:33; Start 07/11/16 at 23:00; Stop 07/13/16 at 12:32; Status DC Warfarin Sodium (Coumadin Per Pharmacy) 1 each PRN DAILY PRN MC PER PROTOCOL Last administered on 07/17/16 13:43; Start 07/11/16 at 23:00; Stop 07/19/16 at 12:42; Status DC Warfarin Sodium (Coumadin) 5 mg 1X ONCE PO Last administered on 07/12/16 01: 45; Start 07/12/16 at 00:15; Stop 07/12/16 at 00:16; Status DC Info (Anti-Coagulation Monitoring By Pharmacy) 1 each PRN DAILY PRN MC SEE COMMENTS Last administered on 07/16/16 14:36; Start 07/11/16 at 23:45 Heparin Sodium (Porcine) 10,000 unit 1X ONCE IV Last administered on 01:48; Start 07/12/16 at 01:15; Stop 07/12/16 at 01:16; Status DC Insulin Aspart (Novolog) 12 units TIDAC SQ Last administered on 07/13/16 12:08 ; Start 07/12/16 at 11:30; Stop 07/13/16 at 12:32; Status DC Insulin Detemir (Levemir) 30 units QHS SQ Last administered on 07/12/16 21:07 ; Start 07/12/16 at 21:00; Stop 07/13/16 at 12:32; Status DC Tramadol HCl (Ultram) 50 mg PRN Q6HRS PRN PO PAIN; Start 07/12/16 at 10:15 Tramadol HCl (Ultram) 50 mg 1X ONCE PO Last administered on 07/12/16 14:32; Start 07/12/16 at 10:15; Stop 07/12/16 at 10:29; Status DC Methylprednisolone Acetate (Depo-Medrol 40mg Vial) 40 mg 1X ONCE IM ; Start at 10:30; Stop 07/12/16 at 10:31; Status DC Bupivacaine HCl (Sensorcaine-Mpf 0.25%) 10 ml 1X ONCE IJ ; Start 07/12/16 at 10 :30; Stop 07/12/16 at 10:31; Status DC Hydromorphone HCl 1 mg 1 mg 1X ONCE IV Last administered on 07/12/16 10:55; Start 07/12/16 at 10:30; Stop 07/12/16 at 10:46; Status DC Cefazolin Sodium 2 gm/Sodium Chloride 50 ml @ 100 mls/hr Q8HRS IV ; Start 07/12 at 11:00; Status Cancel Cefazolin Sodium/ Sodium Chloride (Ancef/Iv Sodium Chloride 0.9% 50ml) 50 ml @ 100 mls/hr Q8HRS IV Last administered on 07/20/16 06:00; Start 07/12/16 at 11: 00 Warfarin Sodium (Coumadin) 6 mg 1X WARF ONCE PO Last administered on 17:58; Start 07/12/16 at 16:00; Stop 07/12/16 at 16:01; Status DC Hydromorphone HCl (Dilaudid) 1 mg PRN Q4HRS PRN IVP PAIN Last administered on 22:25; Start 07/12/16 at 15:30 Polyethylene Glycol (miraLAX PACKET) 17 gm BID PO Last administered on 08:07; Start 07/12/16 at 21:00 Docusate Sodium (Colace) 100 mg PRN DAILY PRN PO CONSTIPATION; Start 07/12/16 at 15:30 Docusate Sodium (Colace) 100 mg DAILY PO Last administered on 07/15/16 08:07; Start 07/13/16 at 09:00 Magnesium Hydroxide (Milk Of Magnesia) 2,400 mg PRN DAILY PRN PO CONSTIPATION; Start 07/12/16 at 15:30 Gadobutrol (Gadavist) 7 mmol 1X ONCE IV Last administered on 07/13/16 10:45; Start 07/13/16 at 10:45; Stop 07/13/16 at 10:51; Status DC Gadobutrol (Gadavist) 7 mmol 1X ONCE IV Last administered on 07/13/16 10:45; Start 07/13/16 at 10:45; Stop 07/13/16 at 10:51; Status DC Warfarin Sodium (Coumadin) 10 mg 1X WARF ONCE PO Last administered on 17:56; Start 07/13/16 at 16:00; Stop 07/13/16 at 16:01; Status DC Enoxaparin Sodium (Lovenox Per Pharmacy Treatment Dosing) 1 each PRN DAILY PRN MC SEE COMMENTS; Start 07/13/16 at 12:30 Insulin Aspart (Novolog) 15 units TIDAC SQ Last administered on 07/20/16 08:44 ; Start 07/13/16 at 16:30 Insulin Detemir (Levemir) 40 units QHS SQ Last administered on 07/19/16 21:05 ; Start 07/13/16 at 21:00 Enoxaparin Sodium (Lovenox 150mg Syringe) 140 mg BID SQ Last administered on 08:38; Start 07/13/16 at 21:00 Warfarin Sodium (Coumadin) 15 mg 1X WARF ONCE PO ; Start 07/14/16 at 16:00; Stop 07/14/16 at 16:01; Status DC Ondansetron HCl (Zofran) 4 mg PRN Q6HRS PRN IV Nausea; Start 07/14/16 at 13:45 ; Stop 07/14/16 at 20:00; Status DC Fentanyl Citrate (Fentanyl 2ml Vial) 25 mcg PRN Q5MIN PRN IV MILD PAIN; Start 07/14/16 at 13:45; Stop 07/14/16 at 20:00; Status DC Fentanyl Citrate (Fentanyl 2ml Vial) 50 mcg PRN Q5MIN PRN IV MODERATE PAIN Last administered on 07/14/16 18:15; Start 07/14/16 at 13:45; Stop 07/15/16 at 20:00; Status DC Morphine Sulfate 1 mg 1 mg PRN Q10MIN PRN IV SEVERE PAIN; Start 07/14/16 at 13: 45; Stop 07/14/16 at 20:00; Status DC Lactated Ringer's (Iv Lactated Ringers) 1,000 ml @ 30 mls/hr Q24H IV ; Start at 13:42; Stop 07/14/16 at 19:44; Status DC Lidocaine HCl 2 ml 1X PRN PRN ID IV START; Start 07/14/16 at 13:45; Stop at 20:00; Status DC Hydromorphone HCl (Dilaudid) 0.5 mg PRN Q10MIN PRN IV SEV PAIN,Second choice; Start 07/14/16 at 13:45; Stop 07/14/16 at 18:00; Status DC Prochlorperazine Edisylate (Compazine) 5 mg PACU PRN PRN IV NAUSEA Last administered on 07/14/16t 17:55; Start 07/14/16 at 13:45; Stop 07/14/16 at 20:00 ; Status DC Bupivacaine HCl/ Epinephrine Bitart 50 ml 50 ml STK-MED ONCE .ROUTE ; Start at 15:20; Stop 07/14/16 at 15:21; Status DC Propofol (Diprivan) 20 ml @ As Directed STK-MED ONCE IV ; Start 07/14/16 at 15: 26; Stop 07/14/16 at 15:27; Status DC Lidocaine HCl 100 mg STK-MED ONCE .ROUTE ; Start 07/14/16 at 15:26; Stop at 15:27; Status DC Fentanyl Citrate (Fentanyl 2ml Vial) 100 mcg STK-MED ONCE .ROUTE ; Start at 15:27; Stop 07/14/16 at 15:28; Status DC Rocuronium [place] (Zemuron) 50 mg STK-MED ONCE .ROUTE ; Start 07/14/16 at 15:27 ; Stop 07/14/16 at 15:28; Status DC Dexamethasone Sodium Phosphate (Decadron) 20 mg STK-MED ONCE .ROUTE ; Start at 16:34; Stop 07/14/16 at 16:35; Status DC Desflurane (Suprane) 30 ml STK-MED ONCE IH ; Start 07/14/16 at 16:35; Stop 07/14 at 16:36; Status DC Ondansetron HCl (Zofran) 4 mg STK-MED ONCE .ROUTE ; Start 07/14/16 at 16:46; Stop 07/14/16 at 16:47; Status DC Glycopyrrolate (Robinul) 1 mg STK-MED ONCE .ROUTE ; Start 07/14/16 at 16:46; Stop 07/14/16 at 16:47; Status DC Neostigmine Methylsulfate 5 mg STK-MED ONCE .ROUTE ; Start 07/14/16 at 16:46; Stop 07/14/16 at 16:47; Status DC Fentanyl Citrate (Fentanyl 2ml Vial) 100 mcg STK-MED ONCE .ROUTE ; Start at 16:57; Stop 07/14/16 at 16:58; Status DC Insulin Aspart 10 units 10 units 1X ONCE SQ Last administered on 07/15/16 08: 26; Start 07/15/16 at 08:30; Stop 07/15/16 at 08:31; Status DC Cefazolin Sodium/ Dextrose (Ancef 2gm Premix) 50 ml @ 100 mls/hr 1X PREOP PRN IV PER PROTOCOL Last administered on 07/16/16 05:56; Start 07/16/16 at 10:30; Stop 07/16/16 at 18:00; Status DC Insulin Aspart (Novolog) 15 units 1X ONCE SQ Last administered on 07/15/16 12 :25; Start 07/15/16 at 12:15; Stop 07/15/16 at 12:16; Status DC Warfarin Sodium (Coumadin - No Dose Today) 1 each 1X WARF ONCE MC Last administered on 07/15/16 16:00; Start 07/15/16 at 16:00; Stop 07/15/16 at 16:01 ; Status DC Rocuronium [place] (Zemuron) 50 mg STK-MED ONCE .ROUTE ; Start 07/16/16 at 09:56 ; Stop 07/16/16 at 09:57; Status DC Dexamethasone Sodium Phosphate (Decadron) 20 mg STK-MED ONCE .ROUTE ; Start at 09:58; Stop 07/16/16 at 09:59; Status DC Ondansetron HCl 4 mg 4 mg STK-MED ONCE .ROUTE ; Start 07/16/16 at 09:58; Stop at 09:59; Status DC Propofol (Diprivan) 20 ml @ As Directed STK-MED ONCE IV ; Start 07/16/16 at 09: 58; Stop 07/16/16 at 09:59; Status DC Lidocaine HCl 100 mg STK-MED ONCE .ROUTE ; Start 07/16/16 at 09:58; Stop at 09:59; Status DC Fentanyl Citrate (Fentanyl 5ml Vial) 250 mcg STK-MED ONCE .ROUTE ; Start at 09:58; Stop 07/16/16 at 09:59; Status DC Midazolam HCl (Versed) 2 mg STK-MED ONCE .ROUTE ; Start 07/16/16 at 09:58; Stop 07/16/16 at 09:59; Status DC Famotidine (Pepcid) 20 mg STK-MED ONCE .ROUTE ; Start 07/16/16 at 09:58; Stop at 09:59; Status DC Succinylcholine Chloride (Anectine) 200 mg STK-MED ONCE .ROUTE ; Start 07/16/16 at 10:10; Stop 07/16/16 at 10:11; Status DC Succinylcholine Chloride 200 mg 200 mg STK-MED ONCE .ROUTE ; Start 07/16/16 at 10:26; Stop 07/16/16 at 10:27; Status DC Acetaminophen (Ofirmev) 100 ml @ As Directed STK-MED ONCE IV ; Start 07/16/16 at 11:49; Stop 07/16/16 at 11:50; Status DC Glycopyrrolate (Robinul) 1 mg STK-MED ONCE .ROUTE ; Start 07/16/16 at 11:55; Stop 07/16/16 at 11:56; Status DC Neostigmine Methylsulfate 5 mg STK-MED ONCE .ROUTE ; Start 07/16/16 at 11:55; Stop 07/16/16 at 11:56; Status DC Ondansetron HCl (Zofran) 4 mg PRN Q6HRS PRN IV Nausea; Start 07/16/16 at 12:30 ; Stop 07/17/16 at 12:29; Status DC Fentanyl Citrate (Fentanyl 2ml Vial) 25 mcg PRN Q5MIN PRN IV MILD PAIN; Start 07/16/16 at 12:30; Stop 07/17/16 at 12:29; Status DC Fentanyl Citrate (Fentanyl 2ml Vial) 50 mcg PRN Q5MIN PRN IV MODERATE PAIN; Start 07/16/16 at 12:30; Stop 07/17/16 at 12:29; Status DC Morphine Sulfate 1 mg 1 mg PRN Q10MIN PRN IV SEVERE PAIN; Start 07/16/16 at 12: 30; Stop 07/17/16 at 12:29; Status DC Lactated Ringer's (Iv Lactated Ringers) 1,000 ml @ 30 mls/hr Q24H IV ; Start at 12:28; Stop 07/17/16 at 00:27; Status DC Lidocaine HCl 2 ml 1X PRN PRN ID IV START; Start 07/16/16 at 12:30; Stop at 12:29; Status DC Hydromorphone HCl (Dilaudid) 0.5 mg PRN Q10MIN PRN IV SEV PAIN,Second choice Last administered on 07/16/16 14:38; Start 07/16/16 at 12:30; Stop 07/17/16 at 12:29; Status DC Prochlorperazine Edisylate (Compazine) 5 mg PACU PRN PRN IV NAUSEA; Start 07/16 at 12:30; Stop 07/17/16 at 12:29; Status DC Warfarin Sodium (Coumadin) 10 mg 1X WARF ONCE PO Last administered on 15:58; Start 07/16/16 at 16:00; Stop 07/16/16 at 16:01; Status DC Ondansetron HCl (Zofran) 4 mg PRN Q6HRS PRN IV Nausea Last administered on 07/19 14:09; Start 07/19/16 at 07:00; Stop 07/20/16 at 06:59; Status DC Fentanyl Citrate (Fentanyl 2ml Vial) 25 mcg PRN Q5MIN PRN IV MILD PAIN; Start 07/19/16 at 07:00; Stop 07/20/16 at 06:59; Status DC Fentanyl Citrate (Fentanyl 2ml Vial) 50 mcg PRN Q5MIN PRN IV MODERATE PAIN; Start 07/19/16 at 07:00; Stop 07/20/16 at 06:59; Status DC Morphine Sulfate 1 mg 1 mg PRN Q10MIN PRN IV SEVERE PAIN; Start 07/19/16 at 07: 00; Stop 07/20/16 at 06:59; Status DC Lactated Ringer's (Iv Lactated Ringers) 1,000 ml @ 0 mls/hr Q0M IV Last administered on 07/19/16t 10:53; Start 07/19/16 at 07:00; Stop 07/19/16 at 18:59 ; Status DC Lidocaine HCl 2 ml 1X PRN PRN ID IV START; Start 07/19/16 at 07:00; Stop at 06:59; Status DC Hydromorphone HCl (Dilaudid) 0.5 mg PRN Q10MIN PRN IV SEVERE PAIN, Second choice; Start 07/19/16 at 07:00; Stop 07/20/16 at 06:59; Status DC Prochlorperazine Edisylate (Compazine) 5 mg PACU PRN PRN IV NAUSEA; Start 07/19 at 07:00; Stop 07/20/16 at 06:59; Status DC Sodium Chloride (Normal Saline Flush) 10 ml QSHIFT PRN IV AFTER MEDS AND BLOOD DRAWS; Start 07/17/16 at 12:00; Stop 07/17/16 at 12:06; Status DC Lidocaine HCl (Xylocaine 2% Topical 5gm Tube) 1 silvia 1X ONCE TP ; Start at 12:00; Stop 07/17/16 at 12:06; Status DC Lidocaine HCl (Viscous Lidocaine) 15 ml 1X ONCE MM ; Start 07/17/16 at 12:00; Stop 07/17/16 at 12:06; Status DC Benzocaine (Hurricaine One) 1 spray 1X ONCE MM ; Start 07/17/16 at 12:00; Stop 07/17/16 at 12:06; Status DC Bupivacaine HCl/ Epinephrine Bitart (Sensorcaine-Epi 0.25%-1:[id number] Mpf) 30 ml STK-MED ONCE .ROUTE ; Start 07/19/16 at 07:20; Stop 07/19/16 at 07:21; Status DC Sodium Chloride (Normal Saline Flush) 10 ml QSHIFT PRN IV AFTER MEDS AND BLOOD DRAWS; Start 07/19/16 at 10:15 Lidocaine HCl (Xylocaine 2% Topical 5gm Tube) 1 silvia 1X ONCE TP ; Start at 10:15; Stop 07/19/16 at 10:16; Status DC Lidocaine HCl (Viscous Lidocaine) 15 ml 1X ONCE MM ; Start 07/19/16 at 10:15; Stop 07/19/16 at 10:16; Status DC Benzocaine 1 spray 1 spray 1X ONCE MM ; Start 07/19/16 at 10:15; Stop 07/19/16 at 10:16; Status DC Propofol (Diprivan) 20 ml @ As Directed STK-MED ONCE IV ; Start 07/19/16 at 10: 37; Stop 07/19/16 at 10:38; Status DC Lidocaine HCl 100 mg STK-MED ONCE .ROUTE ; Start 07/19/16 at 10:37; Stop at 10:38; Status DC Ondansetron HCl (Zofran) 4 mg STK-MED ONCE .ROUTE ; Start 07/19/16 at 10:37; Stop 07/19/16 at 10:38; Status DC Dexamethasone Sodium Phosphate (Decadron) 20 mg STK-MED ONCE .ROUTE ; Start at 10:37; Stop 07/19/16 at 10:38; Status DC Fentanyl Citrate (Fentanyl 2ml Vial) 100 mcg STK-MED ONCE .ROUTE ; Start at 10:37; Stop 07/19/16 at 10:38; Status DC Rocuronium [place] (Zemuron) 50 mg STK-MED ONCE .ROUTE ; Start 07/19/16 at 10:54 ; Stop 07/19/16 at 10:55; Status DC Ephedrine Sulfate 50 mg STK-MED ONCE IV ; Start 07/19/16 at 11:05; Stop at 11:06; Status DC Phenylephrine HCl 1 mg STK-MED ONCE IV ; Start 07/19/16 at 11:07; Stop 07/19/16 at 11:08; Status DC Sevoflurane 30 ml 30 ml STK-MED ONCE IH ; Start 07/19/16 at 11:14; Stop at 11:15; Status DC Propofol (Diprivan) 20 ml @ As Directed STK-MED ONCE IV ; Start 07/19/16 at 12: 15; Stop 07/19/16 at 12:16; Status DC Neostigmine Methylsulfate 5 mg STK-MED ONCE .ROUTE ; Start 07/19/16 at 12:16; Stop 07/19/16 at 12:17; Status DC Glycopyrrolate (Robinul) 1 mg STK-MED ONCE .ROUTE ; Start 07/19/16 at 12:16; Stop 07/19/16 at 12:17; Status DC Phenylephrine HCl 1 mg STK-MED ONCE IV ; Start 07/19/16 at 12:25; Stop 07/19/16 at 12:26; Status DC Active Scripts Active Phenergan (Promethazine HCl) 25 Mg Supp.rect 25 Mg RC Q8HRS PRN Zofran Odt (Ondansetron) 4 Mg Tab.rapdis 1 Tab SL Q8HRS PRN Vitals/I & O Vital Sign - Last 24 Hours 07/19/16 07/19/16 07/19/16 07/19/16 10:29 10:45 13:00 13:00 Temp 99.5 98.4 97 99.5 98.4 97.0 Pulse 86 77 72 Resp 18 24 18 B/P 141/64 146/69 128/59 Pulse Ox 91 95 97 O2 Delivery Room Air Room Air Room Air Room Air O2 Flow Rate 2.0 6 2.0 07/19/16 07/19/16 07/19/16 07/19/16 13:15 13:30 13:45 14:00 Temp 97.0 97.0 97.0 97.0 97.0 97.0 97.0 97.0 Pulse 88 72 98 78 Resp 18 20 20 20 B/P 122/68 128/59 125/61 130/61 Pulse Ox 93 97 95 96 O2 Delivery Room Air Nasal Cannula Nasal Cannula Nasal Cannula O2 Flow Rate 2.0 2.0 2.0 07/19/16 07/19/16 07/19/16 07/19/16 14:15 15:00 16:10 17:02 Temp 97.0 98.8 98.8 97.0 98.8 98.8 Pulse 74 85 85 Resp 20 20 16 20 B/P 130/64 134/57 134/57 Pulse Ox 96 94 94 O2 Delivery Nasal Cannula Room Air Nasal Cannula Room Air O2 Flow Rate 2.0 2.0 07/19/16 07/19/16 07/19/16 07/19/16 17:10 19:00 20:00 22:10 Temp 99.3 99.3 Pulse 86 Resp 16 18 18 B/P 139/70 Pulse Ox 96 96 O2 Delivery Room Air Room Air Room Air O2 Flow Rate 2.0 2.0 07/19/16 07/20/16 07/20/16 07/20/16 22:32 03:14 06:27 07:00 Temp 99.1 97.8 98.5 99.1 97.8 98.5 Pulse 72 67 75 Resp 19 18 19 B/P 140/65 117/93 159/50 Pulse Ox 94 96 96 95 O2 Delivery Room Air Room Air Room Air Room Air O2 Flow Rate 2.0 07/20/16 07/20/16 07:27 08:00 Pulse Ox 95 O2 Delivery Room Air Room Air Intake and Output 07/19/16 07/19/16 07/20/16 15:00 23:00 07:00 Intake Total 610 ml 1100 ml 700 ml Output Total 450 ml Balance 160 ml 1100 ml 700 ml CLIFFORD BURGOS MD Jul 20, 2016 09:43
--- NOTE | 2016-07-20 09:54 | PDOC ---
PULMONARY PROGRESS NOTES Subjective no soa Vitals Vital Signs Date Time Temp Pulse Resp B/P Pulse Ox O2 Delivery O2 Flow Rate FiO2 07/20/16 08:00 Room Air 07/20/16 07:27 95 07/20/16 07:00 98.5 75 19 159/50 98.5 07/20/16 06:27 2.0 General: Alert, No acute distress Lungs: Clear, Other (No wheezing) Cardiovascular: S1 Abdomen: Soft Neuro Exam: Alert Extremities: No Edema Skin: Warm Labs Laboratory Tests Test 07/18/16 11:23 07/18/16 17:03 07/18/16 20:55 07/19/16 07:22 Glucose (Fingerstick) 265mg/dL (70-99) 229mg/dL (70-99) 198mg/dL (70-99) 161mg/dL (70-99) Test 07/19/16 07:40 07/19/16 09:59 07/19/16 10:42 07/19/16 13:05 White Blood Count 8.2x10^3/uL (4.0-11.0) Red Blood Count 4.10x10^6/uL (4.30-5.70) Hemoglobin 11.2g/dL (13.0-17.5) Hematocrit 35.6% (39.0-53.0) Mean Corpuscular Volume 87fL (79-100) Mean Corpuscular Hemoglobin 27pg (25-35) Mean Corpuscular Hemoglobin Concent 32g/dL (31-37) Red Cell Distribution Width 16.2% (11.5-14.5) Platelet Count 427x10^3/uL (140-400) Neutrophils (%) (Auto) 76% (31-73) Lymphocytes (%) (Auto) 18% (24-48) Monocytes (%) (Auto) 4% (0-9) Eosinophils (%) (Auto) 2% (0-3) Basophils (%) (Auto) 1% (0-3) Neutrophils # (Auto) 6.2x10^3uL (1.8-7.7) Lymphocytes # (Auto) 1.5x10^3/uL (1.0-4.8) Monocytes # (Auto) 0.3x10^3/uL (0.0-1.1) Eosinophils # (Auto) 0.2x10^3/uL (0.0-0.7) Basophils # (Auto) 0.1x10^3/uL (0.0-0.2) Sodium Level 142mmol/L (136-145) Potassium Level 4.4mmol/L (3.5-5.1) Chloride Level 104mmol/L (98-107) Carbon Dioxide Level 31mmol/L (21-32) Anion Gap 7 (6-14) Blood Urea Nitrogen 13mg/dL (8-26) Creatinine 0.6mg/dL (0.7-1.3) Estimated GFR (Cockcroft-Gault) 139.9 Glucose Level 174mg/dL (70-99) Calcium Level 8.8mg/dL (8.5-10.1) Glucose (Fingerstick) 166mg/dL (70-99) 177mg/dL (70-99) 172mg/dL (70-99) Test 07/19/16 13:40 07/19/16 14:44 07/19/16 20:30 07/20/16 07:40 Clostridium difficile Toxin (PCR) Negative (Negative) Glucose (Fingerstick) 190mg/dL (70-99) 344mg/dL (70-99) White Blood Count 9.3x10^3/uL (4.0-11.0) Red Blood Count 3.48x10^6/uL (4.30-5.70) Hemoglobin 9.6g/dL (13.0-17.5) Hematocrit 30.2% (39.0-53.0) Mean Corpuscular Volume 87fL (79-100) Mean Corpuscular Hemoglobin 28pg (25-35) Mean Corpuscular Hemoglobin Concent 32g/dL (31-37) Red Cell Distribution Width 15.8% (11.5-14.5) Platelet Count 340x10^3/uL (140-400) Neutrophils (%) (Auto) 65% (31-73) Lymphocytes (%) (Auto) 28% (24-48) Monocytes (%) (Auto) 5% (0-9) Eosinophils (%) (Auto) 1% (0-3) Basophils (%) (Auto) 1% (0-3) Neutrophils # (Auto) 6.0x10^3uL (1.8-7.7) Lymphocytes # (Auto) 2.6x10^3/uL (1.0-4.8) Monocytes # (Auto) 0.5x10^3/uL (0.0-1.1) Eosinophils # (Auto) 0.1x10^3/uL (0.0-0.7) Basophils # (Auto) 0.1x10^3/uL (0.0-0.2) Sodium Level 143mmol/L (136-145) Potassium Level 4.5mmol/L (3.5-5.1) Chloride Level 105mmol/L (98-107) Carbon Dioxide Level 30mmol/L (21-32) Anion Gap 8 (6-14) Blood Urea Nitrogen 15mg/dL (8-26) Creatinine 0.8mg/dL (0.7-1.3) Estimated GFR (Cockcroft-Gault) 100.4 Glucose Level 158mg/dL (70-99) Calcium Level 8.3mg/dL (8.5-10.1) Test 07/20/16 07:59 Glucose (Fingerstick) 128mg/dL (70-99) Laboratory Tests Test 07/19/16 09:59 07/19/16 10:42 07/19/16 13:05 07/19/16 13:40 Glucose (Fingerstick) 166mg/dL (70-99) 177mg/dL (70-99) 172mg/dL (70-99) Clostridium difficile Toxin (PCR) Negative (Negative) Test 07/19/16 14:44 07/19/16 20:30 07/20/16 07:40 07/20/16 07:59 Glucose (Fingerstick) 190mg/dL (70-99) 344mg/dL (70-99) 128mg/dL (70-99) White Blood Count 9.3x10^3/uL (4.0-11.0) Red Blood Count 3.48x10^6/uL (4.30-5.70) Hemoglobin 9.6g/dL (13.0-17.5) Hematocrit 30.2% (39.0-53.0) Mean Corpuscular Volume 87fL (79-100) Mean Corpuscular Hemoglobin 28pg (25-35) Mean Corpuscular Hemoglobin Concent 32g/dL (31-37) Red Cell Distribution Width 15.8% (11.5-14.5) Platelet Count 340x10^3/uL (140-400) Neutrophils (%) (Auto) 65% (31-73) Lymphocytes (%) (Auto) 28% (24-48) Monocytes (%) (Auto) 5% (0-9) Eosinophils (%) (Auto) 1% (0-3) Basophils (%) (Auto) 1% (0-3) Neutrophils # (Auto) 6.0x10^3uL (1.8-7.7) Lymphocytes # (Auto) 2.6x10^3/uL (1.0-4.8) Monocytes # (Auto) 0.5x10^3/uL (0.0-1.1) Eosinophils # (Auto) 0.1x10^3/uL (0.0-0.7) Basophils # (Auto) 0.1x10^3/uL (0.0-0.2) Sodium Level 143mmol/L (136-145) Potassium Level 4.5mmol/L (3.5-5.1) Chloride Level 105mmol/L (98-107) Carbon Dioxide Level 30mmol/L (21-32) Anion Gap 8 (6-14) Blood Urea Nitrogen 15mg/dL (8-26) Creatinine 0.8mg/dL (0.7-1.3) Estimated GFR (Cockcroft-Gault) 100.4 Glucose Level 158mg/dL (70-99) Calcium Level 8.3mg/dL (8.5-10.1) Medications Active Scripts Medications Dose Route/Sig Days Date Category Phenergan (Promethazine HCl) 25 Mg Supp.rect 25 Mg RC Q8HRS PRN 07/02/16 Rx Zofran Odt (Ondansetron) 4 Mg Tab.rapdis 1 Tab SL Q8HRS PRN 07/02/16 Rx Impression . 1. Abnormal CT of the chest revealing 1.3 cm nodule in the left lower lobe in a patient who has never smoked. 2. fever per Infectious Disease. 3. Staphylococcus aureus in the urine. 4. No evidence of septic emboli on current CT of the chest. 5. Staph sepsis - 07/11. ECHO reviewed. 6. Shoulder pain and warmth - improving + MSSA s/p I and D Plan . d/c ok recommend followup CT of the chest in 3 months. I NIGEL DAMON MD Jul 20, 2016 09:54
--- NOTE | 2016-07-20 09:57 | PDOC ---
PROGRESS NOTES Chief Complaint Chief Complaint Shoulder pain Septic joint Bronchitis ASSESSMENT AND PLAN: 1. Septic L shoulder joint: s/p I&D in OR on 07/[address] Wallace. s /p Irrigation and debridement, wound vac removal, closure with packing placement on 07/19. Final closure on 2. Sepsis: resolved. blood cultures with MSSA on 07/11 and 07/14. HARISH no vegetation, continue IV cefazolin, ID following. Pt declined to have picc today 3. Pain control: has IV morphine; Recumbant to even take PO meds 4. NELIDA: PoA, vasomotor. now resolved 5. Hyponatremia: POA. now resolved 6. DM2: poor control at home (HgbA1c 11), fair control here. on long- and short-acting insulin plus ISS 7. UTI: POA. culture with MSSA 8. Bronchitis: POA. essentially resolved. minor cough persisting 9. LLL lung nodule: OP F/U 10. UE DVT: currently on therapeutic bid Lovenox. change to oral once stable. 11. Hypoalbuminemia: severe, in BMI 38. 12. Obesity - BMI 38 History of Present Illness History of Present Illness sitting in chair at bedside no acute events doesn't want PICC TODAY Vitals Vitals Vital Signs Date Time Temp Pulse Resp B/P Pulse Ox O2 Delivery O2 Flow Rate FiO2 07/20/16 08:00 Room Air 07/20/16 07:27 95 07/20/16 07:00 98.5 75 19 159/50 98.5 07/20/16 06:27 2.0 Physical Exam General: Alert, Oriented X3, Cooperative, No acute distress Heart: Regular rate, Normal S1, Normal S2, No murmurs Lungs: Clear, Other (No wheezing) Abdomen: Soft, No tenderness Extremities: Other Skin: No rashes, No breakdown, Other Labs LABS Laboratory Tests Test 07/19/16 09:59 07/19/16 10:42 07/19/16 13:05 07/19/16 13:40 Glucose (Fingerstick) 166mg/dL (70-99) 177mg/dL (70-99) 172mg/dL (70-99) Clostridium difficile Toxin (PCR) Negative (Negative) Test 07/19/16 14:44 07/19/16 20:30 07/20/16 07:40 07/20/16 07:59 Glucose (Fingerstick) 190mg/dL (70-99) 344mg/dL (70-99) 128mg/dL (70-99) White Blood Count 9.3x10^3/uL (4.0-11.0) Red Blood Count 3.48x10^6/uL (4.30-5.70) Hemoglobin 9.6g/dL (13.0-17.5) Hematocrit 30.2% (39.0-53.0) Mean Corpuscular Volume 87fL (79-100) Mean Corpuscular Hemoglobin 28pg (25-35) Mean Corpuscular Hemoglobin Concent 32g/dL (31-37) Red Cell Distribution Width 15.8% (11.5-14.5) Platelet Count 340x10^3/uL (140-400) Neutrophils (%) (Auto) 65% (31-73) Lymphocytes (%) (Auto) 28% (24-48) Monocytes (%) (Auto) 5% (0-9) Eosinophils (%) (Auto) 1% (0-3) Basophils (%) (Auto) 1% (0-3) Neutrophils # (Auto) 6.0x10^3uL (1.8-7.7) Lymphocytes # (Auto) 2.6x10^3/uL (1.0-4.8) Monocytes # (Auto) 0.5x10^3/uL (0.0-1.1) Eosinophils # (Auto) 0.1x10^3/uL (0.0-0.7) Basophils # (Auto) 0.1x10^3/uL (0.0-0.2) Sodium Level 143mmol/L (136-145) Potassium Level 4.5mmol/L (3.5-5.1) Chloride Level 105mmol/L (98-107) Carbon Dioxide Level 30mmol/L (21-32) Anion Gap 8 (6-14) Blood Urea Nitrogen 15mg/dL (8-26) Creatinine 0.8mg/dL (0.7-1.3) Estimated GFR (Cockcroft-Gault) 100.4 Glucose Level 158mg/dL (70-99) Calcium Level 8.3mg/dL (8.5-10.1) Assessment and Plan Assessmemt and Plan Problems Medical Problems: (1) Acute renal injury Status: Acute (2) Dehydration Status: Acute (3) Hyponatremia Status: Acute (4) Nausea & vomiting Status: Acute (5) Uncontrolled diabetes mellitus Status: Acute Problems: Comment Review of Relevant I have reviewed the following items [place] (where applicable) has been applied. Labs Laboratory Tests Test 07/18/16 11:23 07/18/16 17:03 07/18/16 20:55 07/19/16 07:22 Glucose (Fingerstick) 265mg/dL (70-99) 229mg/dL (70-99) 198mg/dL (70-99) 161mg/dL (70-99) Test 07/19/16 07:40 07/19/16 09:59 07/19/16 10:42 07/19/16 13:05 White Blood Count 8.2x10^3/uL (4.0-11.0) Red Blood Count 4.10x10^6/uL (4.30-5.70) Hemoglobin 11.2g/dL (13.0-17.5) Hematocrit 35.6% (39.0-53.0) Mean Corpuscular Volume 87fL (79-100) Mean Corpuscular Hemoglobin 27pg (25-35) Mean Corpuscular Hemoglobin Concent 32g/dL (31-37) Red Cell Distribution Width 16.2% (11.5-14.5) Platelet Count 427x10^3/uL (140-400) Neutrophils (%) (Auto) 76% (31-73) Lymphocytes (%) (Auto) 18% (24-48) Monocytes (%) (Auto) 4% (0-9) Eosinophils (%) (Auto) 2% (0-3) Basophils (%) (Auto) 1% (0-3) Neutrophils # (Auto) 6.2x10^3uL (1.8-7.7) Lymphocytes # (Auto) 1.5x10^3/uL (1.0-4.8) Monocytes # (Auto) 0.3x10^3/uL (0.0-1.1) Eosinophils # (Auto) 0.2x10^3/uL (0.0-0.7) Basophils # (Auto) 0.1x10^3/uL (0.0-0.2) Sodium Level 142mmol/L (136-145) Potassium Level 4.4mmol/L (3.5-5.1) Chloride Level 104mmol/L (98-107) Carbon Dioxide Level 31mmol/L (21-32) Anion Gap 7 (6-14) Blood Urea Nitrogen 13mg/dL (8-26) Creatinine 0.6mg/dL (0.7-1.3) Estimated GFR (Cockcroft-Gault) 139.9 Glucose Level 174mg/dL (70-99) Calcium Level 8.8mg/dL (8.5-10.1) Glucose (Fingerstick) 166mg/dL (70-99) 177mg/dL (70-99) 172mg/dL (70-99) Test 07/19/16 13:40 07/19/16 14:44 07/19/16 20:30 07/20/16 07:40 Clostridium difficile Toxin (PCR) Negative (Negative) Glucose (Fingerstick) 190mg/dL (70-99) 344mg/dL (70-99) White Blood Count 9.3x10^3/uL (4.0-11.0) Red Blood Count 3.48x10^6/uL (4.30-5.70) Hemoglobin 9.6g/dL (13.0-17.5) Hematocrit 30.2% (39.0-53.0) Mean Corpuscular Volume 87fL (79-100) Mean Corpuscular Hemoglobin 28pg (25-35) Mean Corpuscular Hemoglobin Concent 32g/dL (31-37) Red Cell Distribution Width 15.8% (11.5-14.5) Platelet Count 340x10^3/uL (140-400) Neutrophils (%) (Auto) 65% (31-73) Lymphocytes (%) (Auto) 28% (24-48) Monocytes (%) (Auto) 5% (0-9) Eosinophils (%) (Auto) 1% (0-3) Basophils (%) (Auto) 1% (0-3) Neutrophils # (Auto) 6.0x10^3uL (1.8-7.7) Lymphocytes # (Auto) 2.6x10^3/uL (1.0-4.8) Monocytes # (Auto) 0.5x10^3/uL (0.0-1.1) Eosinophils # (Auto) 0.1x10^3/uL (0.0-0.7) Basophils # (Auto) 0.1x10^3/uL (0.0-0.2) Sodium Level 143mmol/L (136-145) Potassium Level 4.5mmol/L (3.5-5.1) Chloride Level 105mmol/L (98-107) Carbon Dioxide Level 30mmol/L (21-32) Anion Gap 8 (6-14) Blood Urea Nitrogen 15mg/dL (8-26) Creatinine 0.8mg/dL (0.7-1.3) Estimated GFR (Cockcroft-Gault) 100.4 Glucose Level 158mg/dL (70-99) Calcium Level 8.3mg/dL (8.5-10.1) Test 07/20/16 07:59 Glucose (Fingerstick) 128mg/dL (70-99) Laboratory Tests Test 07/19/16 09:59 07/19/16 10:42 07/19/16 13:05 07/19/16 13:40 Glucose (Fingerstick) 166mg/dL (70-99) 177mg/dL (70-99) 172mg/dL (70-99) Clostridium difficile Toxin (PCR) Negative (Negative) Test 07/19/16 14:44 07/19/16 20:30 07/20/16 07:40 07/20/16 07:59 Glucose (Fingerstick) 190mg/dL (70-99) 344mg/dL (70-99) 128mg/dL (70-99) White Blood Count 9.3x10^3/uL (4.0-11.0) Red Blood Count 3.48x10^6/uL (4.30-5.70) Hemoglobin 9.6g/dL (13.0-17.5) Hematocrit 30.2% (39.0-53.0) Mean Corpuscular Volume 87fL (79-100) Mean Corpuscular Hemoglobin 28pg (25-35) Mean Corpuscular Hemoglobin Concent 32g/dL (31-37) Red Cell Distribution Width 15.8% (11.5-14.5) Platelet Count 340x10^3/uL (140-400) Neutrophils (%) (Auto) 65% (31-73) Lymphocytes (%) (Auto) 28% (24-48) Monocytes (%) (Auto) 5% (0-9) Eosinophils (%) (Auto) 1% (0-3) Basophils (%) (Auto) 1% (0-3) Neutrophils # (Auto) 6.0x10^3uL (1.8-7.7) Lymphocytes # (Auto) 2.6x10^3/uL (1.0-4.8) Monocytes # (Auto) 0.5x10^3/uL (0.0-1.1) Eosinophils # (Auto) 0.1x10^3/uL (0.0-0.7) Basophils # (Auto) 0.1x10^3/uL (0.0-0.2) Sodium Level 143mmol/L (136-145) Potassium Level 4.5mmol/L (3.5-5.1) Chloride Level 105mmol/L (98-107) Carbon Dioxide Level 30mmol/L (21-32) Anion Gap 8 (6-14) Blood Urea Nitrogen 15mg/dL (8-26) Creatinine 0.8mg/dL (0.7-1.3) Estimated GFR (Cockcroft-Gault) 100.4 Glucose Level 158mg/dL (70-99) Calcium Level 8.3mg/dL (8.5-10.1) Microbiology 07/17/16 Blood Culture - Preliminary, Resulted NO GROWTH AFTER 3 DAYS 07/09/16 Urine Culture - Final, Complete 07/09/16 Urine Culture Result 1 (EMILI) - Final, Complete 07/09/16 Antimicrobic Susceptibility - Final, Complete 07/14/16 Anaerobic/Aerobic Culture - Preliminary, Resulted 07/14/16 Anaerobic Culture Result 1 (EMILI) - Preliminary, Resulted 07/14/16 Aerobic Culture - Final, Resulted 07/14/16 Aerobic Culture Result 1 (MEILI) - Final, Resulted 07/14/16 Antimicrobic Susceptibility - Final, Resulted Medications Current Medications Sodium Chloride (Iv Sodium Chloride 0.9% 1000ml Bag) 1,000 ml @ 1,000 mls/hr Q1H IV Last administered on 07/09/16t 19:34; Start 07/09/16 at 19:18; Stop at 20:17; Status DC Hydromorphone HCl (Dilaudid) 2 mg 1X ONCE IV ; Start 07/09/16 at 19:30; Stop at 19:30; Status DC Ondansetron HCl (Zofran) 4 mg 1X ONCE IV Last administered on 07/09/16 19:33 ; Start 07/09/16 at 19:30; Stop 07/09/16 at 19:31; Status DC Hydromorphone HCl (Dilaudid) 1 mg 1X ONCE IV Last administered on 07/09/16 19 :33; Start 07/09/16 at 19:30; Stop 07/09/16 at 19:31; Status DC Ondansetron HCl (Zofran) 4 mg PRN Q8HRS PRN IV NAUSEA/VOMITING; Start 07/09/16 at 20:30; Stop 07/09/16 at 21:00; Status DC Morphine Sulfate 4 mg 4 mg PRN Q2HR PRN IV PAIN Last administered on 07/10/16 06:36; Start 07/09/16 at 20:30; Stop 07/10/16 at 13:00; Status DC Sodium Chloride (Iv Sodium Chloride 0.9% 1000ml Bag) 1,000 ml @ 150 mls/hr Q6H40M IV Last administered on 07/09/16 20:41; Start 07/09/16 at 20:24; Stop 07/10/16 at 15:29; Status DC Acetaminophen (Tylenol) 650 mg PRN Q4HRS PRN PO FEVER; Start 07/09/16 at 20:30 ; Stop 07/09/16 at 21:00; Status DC Acetaminophen (Tylenol) 650 mg PRN Q6HRS PRN PO FEVER; Start 07/09/16 at 21:00 ; Stop 07/10/16 at 15:28; Status DC Ondansetron HCl 4 mg 4 mg PRN Q6HRS PRN IV NAUSEA/VOMITING Last administered on 07/15/16 22:34; Start 07/09/16 at 21:00 Sodium Chloride (Iv Sodium Chloride 0.9% 1000ml Bag) 1,000 ml @ 150 mls/hr Q6H40M IV Last administered on 07/13/16 17:59; Start 07/09/16 at 21:00; Stop 07/13/16 at 19:27; Status DC Insulin Aspart (Novolog) 0-9 UNITS TIDWMEALS SQ Last administered on 07/19/16 16:20; Start 07/10/16 at 08:00 Dextrose 12.5 gm 12.5 gm PRN Q15MIN PRN IV SEE COMMENTS; Start 07/09/16 at 21: 00 Levofloxacin/ Dextrose (LEVAQUIN 500mg PREMIX) 100 ml @ 100 mls/hr Q24H IV Last administered on 07/12/16 02:49; Start 07/09/16 at 22:00; Stop 07/12/16 at 10:37; Status DC Guaifenesin (Mucinex) 600 mg BID PO Last administered on 07/20/16 08:38; Start 07/09/16 at 21:00 Albuterol Sulfate 2.5 mg 2.5 mg PRN Q4HRS PRN NEB SHORTNESS OF BREATH; Start at 21:00 Sodium Chloride (Iv Sodium Chloride 0.9% 1000ml Bag) 1,000 ml @ 0 mls/hr 1X ONCE IV Last administered on 07/10/16 10:27; Start 07/10/16 at 10:30; Stop at 10:31; Status DC Alprazolam (Xanax) 0.5 mg PRN Q8HRS PRN PO ANXIETY / AGITATION Last administered on 07/13/16 00:52; Start 07/10/16 at 13:00 Acetaminophen/ Hydrocodone Bitart (Lortab 5/325) 1 tab PRN Q6HRS PRN PO MODERATE - SEVERE PAIN Last administered on 07/20/16 06:27; Start 07/10/16 at 13:00 Acetaminophen (Tylenol) 650 mg PRN Q6HRS PRN PO MILD PAIN / TEMP Last administered on 07/14/16 00:08; Start 07/10/16 at 13:00 Heparin Sodium (Porcine) 5000 unit 5,000 unit Q8HRS SQ Last administered on 14:02; Start 07/10/16 at 14:00; Stop 07/11/16 at 22:55; Status DC Magnesium Sulfate/ Dextrose (Magnesium Sulfate PREMIX 2GM) 50 ml @ 25 mls/hr PRN DAILY PRN IV for Mag < 1.7 on am labs; Start 07/10/16 at 14:00 Diphenhydramine HCl (Benadryl) 25 mg PRN Q6HRS PRN IVP ITCHING Last administered on 07/13/16 01:52; Start 07/11/16 at 01:30 Lorazepam 2 mg 2 mg PRN Q4HRS PRN IV ANXIETY / AGITATION Last administered on 10:19; Start 07/11/16 at 01:30 Albumin Human (Albuminar) 100 ml @ 100 mls/hr TID IV Last administered on 07/13 13:56; Start 07/11/16 at 14:00; Stop 07/13/16 at 09:59; Status DC Insulin Aspart (Novolog) 10 units TIDAC SQ Last administered on 07/12/16 08:46 ; Start 07/11/16 at 12:30; Stop 07/12/16 at 09:17; Status DC Insulin Detemir 25 units 25 units QHS SQ Last administered on 07/12/16 01:48; Start 07/11/16 at 21:00; Stop 07/12/16 at 09:17; Status DC Heparin Sodium/ Dextrose 500 ml @ 0 mls/hr CONT PRN IV SEE I/O RECORD Last administered on 07/13/16 12:12; Start 07/11/16 at 23:00; Stop 07/13/16 at 12:32 ; Status DC Heparin Sodium (Porcine) 3,800 unit PRN Q6HRS PRN IV FOR UFH LEVEL LESS THAN 0.2 Last administered on 07/12/16 19:37; Start 07/11/16 at 23:00; Stop at 12:32; Status DC Heparin Sodium (Porcine) 1,900 unit PRN Q6HRS PRN IV FOR UFH LEVEL 0.2 - 0.29 Last administered on 07/13/16 02:33; Start 07/11/16 at 23:00; Stop 07/13/16 at 12:32; Status DC Warfarin Sodium (Coumadin Per Pharmacy) 1 each PRN DAILY PRN MC PER PROTOCOL Last administered on 07/17/16 13:43; Start 07/11/16 at 23:00; Stop 07/19/16 at 12:42; Status DC Warfarin Sodium (Coumadin) 5 mg 1X ONCE PO Last administered on 07/12/16 01: 45; Start 07/12/16 at 00:15; Stop 07/12/16 at 00:16; Status DC Info (Anti-Coagulation Monitoring By Pharmacy) 1 each PRN DAILY PRN MC SEE COMMENTS Last administered on 07/16/16 14:36; Start 07/11/16 at 23:45 Heparin Sodium (Porcine) 10,000 unit 1X ONCE IV Last administered on 01:48; Start 07/12/16 at 01:15; Stop 07/12/16 at 01:16; Status DC Insulin Aspart (Novolog) 12 units TIDAC SQ Last administered on 07/13/16 12:08 ; Start 07/12/16 at 11:30; Stop 07/13/16 at 12:32; Status DC Insulin Detemir (Levemir) 30 units QHS SQ Last administered on 07/12/16 21:07 ; Start 07/12/16 at 21:00; Stop 07/13/16 at 12:32; Status DC Tramadol HCl (Ultram) 50 mg PRN Q6HRS PRN PO PAIN; Start 07/12/16 at 10:15 Tramadol HCl (Ultram) 50 mg 1X ONCE PO Last administered on 07/12/16 14:32; Start 07/12/16 at 10:15; Stop 07/12/16 at 10:29; Status DC Methylprednisolone Acetate (Depo-Medrol 40mg Vial) 40 mg 1X ONCE IM ; Start at 10:30; Stop 07/12/16 at 10:31; Status DC Bupivacaine HCl (Sensorcaine-Mpf 0.25%) 10 ml 1X ONCE IJ ; Start 07/12/16 at 10 :30; Stop 07/12/16 at 10:31; Status DC Hydromorphone HCl 1 mg 1 mg 1X ONCE IV Last administered on 07/12/16 10:55; Start 07/12/16 at 10:30; Stop 07/12/16 at 10:46; Status DC Cefazolin Sodium 2 gm/Sodium Chloride 50 ml @ 100 mls/hr Q8HRS IV ; Start 07/12 at 11:00; Status Cancel Cefazolin Sodium/ Sodium Chloride (Ancef/Iv Sodium Chloride 0.9% 50ml) 50 ml @ 100 mls/hr Q8HRS IV Last administered on 07/20/16 06:00; Start 07/12/16 at 11: 00 Warfarin Sodium (Coumadin) 6 mg 1X WARF ONCE PO Last administered on 17:58; Start 07/12/16 at 16:00; Stop 07/12/16 at 16:01; Status DC Hydromorphone HCl (Dilaudid) 1 mg PRN Q4HRS PRN IVP PAIN Last administered on 22:25; Start 07/12/16 at 15:30 Polyethylene Glycol (miraLAX PACKET) 17 gm BID PO Last administered on 08:07; Start 07/12/16 at 21:00 Docusate Sodium (Colace) 100 mg PRN DAILY PRN PO CONSTIPATION; Start 07/12/16 at 15:30 Docusate Sodium (Colace) 100 mg DAILY PO Last administered on 07/15/16 08:07; Start 07/13/16 at 09:00 Magnesium Hydroxide (Milk Of Magnesia) 2,400 mg PRN DAILY PRN PO CONSTIPATION; Start 07/12/16 at 15:30 Gadobutrol (Gadavist) 7 mmol 1X ONCE IV Last administered on 07/13/16 10:45; Start 07/13/16 at 10:45; Stop 07/13/16 at 10:51; Status DC Gadobutrol (Gadavist) 7 mmol 1X ONCE IV Last administered on 07/13/16 10:45; Start 07/13/16 at 10:45; Stop 07/13/16 at 10:51; Status DC Warfarin Sodium (Coumadin) 10 mg 1X WARF ONCE PO Last administered on 17:56; Start 07/13/16 at 16:00; Stop 07/13/16 at 16:01; Status DC Enoxaparin Sodium (Lovenox Per Pharmacy Treatment Dosing) 1 each PRN DAILY PRN MC SEE COMMENTS; Start 07/13/16 at 12:30 Insulin Aspart (Novolog) 15 units TIDAC SQ Last administered on 07/20/16 08:44 ; Start 07/13/16 at 16:30 Insulin Detemir (Levemir) 40 units QHS SQ Last administered on 07/19/16 21:05 ; Start 07/13/16 at 21:00 Enoxaparin Sodium (Lovenox 150mg Syringe) 140 mg BID SQ Last administered on 08:38; Start 07/13/16 at 21:00 Warfarin Sodium (Coumadin) 15 mg 1X WARF ONCE PO ; Start 07/14/16 at 16:00; Stop 07/14/16 at 16:01; Status DC Ondansetron HCl (Zofran) 4 mg PRN Q6HRS PRN IV Nausea; Start 07/14/16 at 13:45 ; Stop 07/14/16 at 20:00; Status DC Fentanyl Citrate (Fentanyl 2ml Vial) 25 mcg PRN Q5MIN PRN IV MILD PAIN; Start 07/14/16 at 13:45; Stop 07/14/16 at 20:00; Status DC Fentanyl Citrate (Fentanyl 2ml Vial) 50 mcg PRN Q5MIN PRN IV MODERATE PAIN Last administered on 07/14/16 18:15; Start 07/14/16 at 13:45; Stop 07/15/16 at 20:00; Status DC Morphine Sulfate 1 mg 1 mg PRN Q10MIN PRN IV SEVERE PAIN; Start 07/14/16 at 13: 45; Stop 07/14/16 at 20:00; Status DC Lactated Ringer's (Iv Lactated Ringers) 1,000 ml @ 30 mls/hr Q24H IV ; Start at 13:42; Stop 07/14/16 at 19:44; Status DC Lidocaine HCl 2 ml 1X PRN PRN ID IV START; Start 07/14/16 at 13:45; Stop at 20:00; Status DC Hydromorphone HCl (Dilaudid) 0.5 mg PRN Q10MIN PRN IV SEV PAIN,Second choice; Start 07/14/16 at 13:45; Stop 07/14/16 at 18:00; Status DC Prochlorperazine Edisylate (Compazine) 5 mg PACU PRN PRN IV NAUSEA Last administered on 07/14/16 17:55; Start 07/14/16 at 13:45; Stop 07/14/16 at 20:00 ; Status DC Bupivacaine HCl/ Epinephrine Bitart 50 ml 50 ml STK-MED ONCE .ROUTE ; Start at 15:20; Stop 07/14/16 at 15:21; Status DC Propofol (Diprivan) 20 ml @ As Directed STK-MED ONCE IV ; Start 07/14/16 at 15: 26; Stop 07/14/16 at 15:27; Status DC Lidocaine HCl 100 mg STK-MED ONCE .ROUTE ; Start 07/14/16 at 15:26; Stop at 15:27; Status DC Fentanyl Citrate (Fentanyl 2ml Vial) 100 mcg STK-MED ONCE .ROUTE ; Start at 15:27; Stop 07/14/16 at 15:28; Status DC Rocuronium [place] (Zemuron) 50 mg STK-MED ONCE .ROUTE ; Start 07/14/16 at 15:27 ; Stop 07/14/16 at 15:28; Status DC Dexamethasone Sodium Phosphate (Decadron) 20 mg STK-MED ONCE .ROUTE ; Start at 16:34; Stop 07/14/16 at 16:35; Status DC Desflurane (Suprane) 30 ml STK-MED ONCE IH ; Start 07/14/16 at 16:35; Stop 07/14 at 16:36; Status DC Ondansetron HCl (Zofran) 4 mg STK-MED ONCE .ROUTE ; Start 07/14/16 at 16:46; Stop 07/14/16 at 16:47; Status DC Glycopyrrolate (Robinul) 1 mg STK-MED ONCE .ROUTE ; Start 07/14/16 at 16:46; Stop 07/14/16 at 16:47; Status DC Neostigmine Methylsulfate 5 mg STK-MED ONCE .ROUTE ; Start 07/14/16 at 16:46; Stop 07/14/16 at 16:47; Status DC Fentanyl Citrate (Fentanyl 2ml Vial) 100 mcg STK-MED ONCE .ROUTE ; Start at 16:57; Stop 07/14/16 at 16:58; Status DC Insulin Aspart 10 units 10 units 1X ONCE SQ Last administered on 07/15/16t 08: 26; Start 07/15/16 at 08:30; Stop 07/15/16 at 08:31; Status DC Cefazolin Sodium/ Dextrose (Ancef 2gm Premix) 50 ml @ 100 mls/hr 1X PREOP PRN IV PER PROTOCOL Last administered on 07/16/16 05:56; Start 07/16/16 at 10:30; Stop 07/16/16 at 18:00; Status DC Insulin Aspart (Novolog) 15 units 1X ONCE SQ Last administered on 07/15/16 12 :25; Start 07/15/16 at 12:15; Stop 07/15/16 at 12:16; Status DC Warfarin Sodium (Coumadin - No Dose Today) 1 each 1X WARF ONCE MC Last administered on 07/15/16 16:00; Start 07/15/16 at 16:00; Stop 07/15/16 at 16:01 ; Status DC Rocuronium [place] (Zemuron) 50 mg STK-MED ONCE .ROUTE ; Start 07/16/16 at 09:56 ; Stop 07/16/16 at 09:57; Status DC Dexamethasone Sodium Phosphate (Decadron) 20 mg STK-MED ONCE .ROUTE ; Start at 09:58; Stop 07/16/16 at 09:59; Status DC Ondansetron HCl 4 mg 4 mg STK-MED ONCE .ROUTE ; Start 07/16/16 at 09:58; Stop at 09:59; Status DC Propofol (Diprivan) 20 ml @ As Directed STK-MED ONCE IV ; Start 07/16/16 at 09: 58; Stop 07/16/16 at 09:59; Status DC Lidocaine HCl 100 mg STK-MED ONCE .ROUTE ; Start 07/16/16 at 09:58; Stop at 09:59; Status DC Fentanyl Citrate (Fentanyl 5ml Vial) 250 mcg STK-MED ONCE .ROUTE ; Start at 09:58; Stop 07/16/16 at 09:59; Status DC Midazolam HCl (Versed) 2 mg STK-MED ONCE .ROUTE ; Start 07/16/16 at 09:58; Stop 07/16/16 at 09:59; Status DC Famotidine (Pepcid) 20 mg STK-MED ONCE .ROUTE ; Start 07/16/16 at 09:58; Stop at 09:59; Status DC Succinylcholine Chloride (Anectine) 200 mg STK-MED ONCE .ROUTE ; Start 07/16/16 at 10:10; Stop 07/16/16 at 10:11; Status DC Succinylcholine Chloride 200 mg 200 mg STK-MED ONCE .ROUTE ; Start 07/16/16 at 10:26; Stop 07/16/16 at 10:27; Status DC Acetaminophen (Ofirmev) 100 ml @ As Directed STK-MED ONCE IV ; Start 07/16/16 at 11:49; Stop 07/16/16 at 11:50; Status DC Glycopyrrolate (Robinul) 1 mg STK-MED ONCE .ROUTE ; Start 07/16/16 at 11:55; Stop 07/16/16 at 11:56; Status DC Neostigmine Methylsulfate 5 mg STK-MED ONCE .ROUTE ; Start 07/16/16 at 11:55; Stop 07/16/16 at 11:56; Status DC Ondansetron HCl (Zofran) 4 mg PRN Q6HRS PRN IV Nausea; Start 07/16/16 at 12:30 ; Stop 07/17/16 at 12:29; Status DC Fentanyl Citrate (Fentanyl 2ml Vial) 25 mcg PRN Q5MIN PRN IV MILD PAIN; Start 07/16/16 at 12:30; Stop 07/17/16 at 12:29; Status DC Fentanyl Citrate (Fentanyl 2ml Vial) 50 mcg PRN Q5MIN PRN IV MODERATE PAIN; Start 07/16/16 at 12:30; Stop 07/17/16 at 12:29; Status DC Morphine Sulfate 1 mg 1 mg PRN Q10MIN PRN IV SEVERE PAIN; Start 07/16/16 at 12: 30; Stop 07/17/16 at 12:29; Status DC Lactated Ringer's (Iv Lactated Ringers) 1,000 ml @ 30 mls/hr Q24H IV ; Start at 12:28; Stop 07/17/16 at 00:27; Status DC Lidocaine HCl 2 ml 1X PRN PRN ID IV START; Start 07/16/16 at 12:30; Stop at 12:29; Status DC Hydromorphone HCl (Dilaudid) 0.5 mg PRN Q10MIN PRN IV SEV PAIN,Second choice Last administered on 07/16/16 14:38; Start 07/16/16 at 12:30; Stop 07/17/16 at 12:29; Status DC Prochlorperazine Edisylate (Compazine) 5 mg PACU PRN PRN IV NAUSEA; Start 07/16 at 12:30; Stop 07/17/16 at 12:29; Status DC Warfarin Sodium (Coumadin) 10 mg 1X WARF ONCE PO Last administered on 15:58; Start 07/16/16 at 16:00; Stop 07/16/16 at 16:01; Status DC Ondansetron HCl (Zofran) 4 mg PRN Q6HRS PRN IV Nausea Last administered on 07/19 14:09; Start 07/19/16 at 07:00; Stop 07/20/16 at 06:59; Status DC Fentanyl Citrate (Fentanyl 2ml Vial) 25 mcg PRN Q5MIN PRN IV MILD PAIN; Start 07/19/16 at 07:00; Stop 07/20/16 at 06:59; Status DC Fentanyl Citrate (Fentanyl 2ml Vial) 50 mcg PRN Q5MIN PRN IV MODERATE PAIN; Start 07/19/16 at 07:00; Stop 07/20/16 at 06:59; Status DC Morphine Sulfate 1 mg 1 mg PRN Q10MIN PRN IV SEVERE PAIN; Start 07/19/16 at 07: 00; Stop 07/20/16 at 06:59; Status DC Lactated Ringer's (Iv Lactated Ringers) 1,000 ml @ 0 mls/hr Q0M IV Last administered on 07/19/16 10:53; Start 07/19/16 at 07:00; Stop 07/19/16 at 18:59 ; Status DC Lidocaine HCl 2 ml 1X PRN PRN ID IV START; Start 07/19/16 at 07:00; Stop at 06:59; Status DC Hydromorphone HCl (Dilaudid) 0.5 mg PRN Q10MIN PRN IV SEVERE PAIN, Second choice; Start 07/19/16 at 07:00; Stop 07/20/16 at 06:59; Status DC Prochlorperazine Edisylate (Compazine) 5 mg PACU PRN PRN IV NAUSEA; Start 07/19 at 07:00; Stop 07/20/16 at 06:59; Status DC Sodium Chloride (Normal Saline Flush) 10 ml QSHIFT PRN IV AFTER MEDS AND BLOOD DRAWS; Start 07/17/16 at 12:00; Stop 07/17/16 at 12:06; Status DC Lidocaine HCl (Xylocaine 2% Topical 5gm Tube) 1 silvia 1X ONCE TP ; Start at 12:00; Stop 07/17/16 at 12:06; Status DC Lidocaine HCl (Viscous Lidocaine) 15 ml 1X ONCE MM ; Start 07/17/16 at 12:00; Stop 07/17/16 at 12:06; Status DC Benzocaine (Hurricaine One) 1 spray 1X ONCE MM ; Start 07/17/16 at 12:00; Stop 07/17/16 at 12:06; Status DC Bupivacaine HCl/ Epinephrine Bitart (Sensorcaine-Epi 0.25%-1:[id number] Mpf) 30 ml STK-MED ONCE .ROUTE ; Start 07/19/16 at 07:20; Stop 07/19/16 at 07:21; Status DC Sodium Chloride (Normal Saline Flush) 10 ml QSHIFT PRN IV AFTER MEDS AND BLOOD DRAWS; Start 07/19/16 at 10:15 Lidocaine HCl (Xylocaine 2% Topical 5gm Tube) 1 silvia 1X ONCE TP ; Start at 10:15; Stop 07/19/16 at 10:16; Status DC Lidocaine HCl (Viscous Lidocaine) 15 ml 1X ONCE MM ; Start 07/19/16 at 10:15; Stop 07/19/16 at 10:16; Status DC Benzocaine 1 spray 1 spray 1X ONCE MM ; Start 07/19/16 at 10:15; Stop 07/19/16 at 10:16; Status DC Propofol (Diprivan) 20 ml @ As Directed STK-MED ONCE IV ; Start 07/19/16 at 10: 37; Stop 07/19/16 at 10:38; Status DC Lidocaine HCl 100 mg STK-MED ONCE .ROUTE ; Start 07/19/16 at 10:37; Stop at 10:38; Status DC Ondansetron HCl (Zofran) 4 mg STK-MED ONCE .ROUTE ; Start 07/19/16 at 10:37; Stop 07/19/16 at 10:38; Status DC Dexamethasone Sodium Phosphate (Decadron) 20 mg STK-MED ONCE .ROUTE ; Start at 10:37; Stop 07/19/16 at 10:38; Status DC Fentanyl Citrate (Fentanyl 2ml Vial) 100 mcg STK-MED ONCE .ROUTE ; Start at 10:37; Stop 07/19/16 at 10:38; Status DC Rocuronium [place] (Zemuron) 50 mg STK-MED ONCE .ROUTE ; Start 07/19/16 at 10:54 ; Stop 07/19/16 at 10:55; Status DC Ephedrine Sulfate 50 mg STK-MED ONCE IV ; Start 07/19/16 at 11:05; Stop at 11:06; Status DC Phenylephrine HCl 1 mg STK-MED ONCE IV ; Start 07/19/16 at 11:07; Stop 07/19/16 at 11:08; Status DC Sevoflurane 30 ml 30 ml STK-MED ONCE IH ; Start 07/19/16 at 11:14; Stop at 11:15; Status DC Propofol (Diprivan) 20 ml @ As Directed STK-MED ONCE IV ; Start 07/19/16 at 12: 15; Stop 07/19/16 at 12:16; Status DC Neostigmine Methylsulfate 5 mg STK-MED ONCE .ROUTE ; Start 07/19/16 at 12:16; Stop 07/19/16 at 12:17; Status DC Glycopyrrolate (Robinul) 1 mg STK-MED ONCE .ROUTE ; Start 07/19/16 at 12:16; Stop 07/19/16 at 12:17; Status DC Phenylephrine HCl 1 mg STK-MED ONCE IV ; Start 07/19/16 at 12:25; Stop 07/19/16 at 12:26; Status DC Active Scripts Active Phenergan (Promethazine HCl) 25 Mg Supp.rect 25 Mg RC Q8HRS PRN Zofran Odt (Ondansetron) 4 Mg Tab.rapdis 1 Tab SL Q8HRS PRN Vitals/I & O Vital Sign - Last 24 Hours 07/19/16 07/19/16 07/19/16 07/19/16 10:29 10:45 13:00 13:00 Temp 99.5 98.4 97 99.5 98.4 97.0 Pulse 86 77 72 Resp 18 24 18 B/P 141/64 146/69 128/59 Pulse Ox 91 95 97 O2 Delivery Room Air Room Air Room Air Room Air O2 Flow Rate 2.0 6 2.0 07/19/16 07/19/16 07/19/16 07/19/16 13:15 13:30 13:45 14:00 Temp 97.0 97.0 97.0 97.0 97.0 97.0 97.0 97.0 Pulse 88 72 98 78 Resp 18 20 20 20 B/P 122/68 128/59 125/61 130/61 Pulse Ox 93 97 95 96 O2 Delivery Room Air Nasal Cannula Nasal Cannula Nasal Cannula O2 Flow Rate 2.0 2.0 2.0 07/19/16 07/19/16 07/19/16 07/19/16 14:15 15:00 16:10 17:02 Temp 97.0 98.8 98.8 97.0 98.8 98.8 Pulse 74 85 85 Resp 20 20 16 20 B/P 130/64 134/57 134/57 Pulse Ox 96 94 94 O2 Delivery Nasal Cannula Room Air Nasal Cannula Room Air O2 Flow Rate 2.0 2.0 07/19/16 07/19/16 07/19/16 07/19/16 17:10 19:00 20:00 22:10 Temp 99.3 99.3 Pulse 86 Resp 16 18 18 B/P 139/70 Pulse Ox 96 96 O2 Delivery Room Air Room Air Room Air O2 Flow Rate 2.0 2.0 07/19/16 07/20/16 07/20/16 07/20/16 22:32 03:14 06:27 07:00 Temp 99.1 97.8 98.5 99.1 97.8 98.5 Pulse 72 67 75 Resp 19 19 18 19 B/P 140/65 117/93 159/50 Pulse Ox 94 96 96 95 O2 Delivery Room Air Room Air Room Air Room Air O2 Flow Rate 2.0 07/20/16 07/20/16 07:27 08:00 Pulse Ox 95 O2 Delivery Room Air Room Air Intake and Output 207/19/16 07/20/16 15:00 23:00 07:00 Intake Total 610 ml 1100 ml 700 ml Output Total 450 ml Balance 160 ml 1100 ml 700 ml MANOHAR FITZPATRICK MD Jul 20, 2016 09:57
[2016-07-20 10:49] VITALS: BP 147/74
[2016-07-20] MEDS: ALPRAZOLAM 0.5 MG TABLET PO PRN (14:16)
[2016-07-20 14:52] VITALS: BP 146/64
[2016-07-20 19:00] VITALS: BP 139/76
[2016-07-20] MEDS: INSULIN DETEMIR 300 UNITS/3 ML INSULN.PEN. SQ SCH (20:49)
[2016-07-20 22:47] VITALS: BP 148/73
[2016-07-21 02:36] VITALS: BP 149/74
[2016-07-21] MEDS: NORMAL SALINE IV SCH ×3 (05:43→21:50)
[2016-07-21] MEDS: CEFAZOLIN SODIUM IV SCH ×3 (05:43→21:50)
[2016-07-21 07:00] VITALS: BP 126/81
[2016-07-21] MEDS: INSULIN ASPART 300 UNITS/3 ML INSULN.PEN SQ SCH ×6 (07:30→17:26)
[2016-07-21] MEDS: GUAIFENESIN ER 600 MG TABLET.ER PO SCH ×2 (08:30→21:48)
[2016-07-21] MEDS: POLYETHYLENE GLYCOL 3350 17 GM PACKET. PO SCH ×2 (08:30→21:00)
[2016-07-21] MEDS: DOCUSATE SODIUM 100 MG CAPSULE PO SCH (08:30)
[2016-07-21] MEDS: ENOXAPARIN ** NOTE DOSE ** SYRINGE SQ SCH ×2 (08:31→21:49)
[2016-07-21] MEDS: ONDANSETRON PF 4 MG/2 ML VIAL. IV PRN (08:36)
[2016-07-21] MEDS: ALPRAZOLAM 0.5 MG TABLET PO PRN ×2 (08:42→17:20)
[2016-07-21 08:58] LABS: BASO # 0.1 x10^3/uL (0.0-0.2); BASO % 1 % (0-3); EOS % 2 % (0-3); HEMATOCRIT 33.7 % (39.0-53.0); HEMOGLOBIN 10.7 g/dL (13.0-17.5); LYMPH # 1.8 x10^3/uL (1.0-4.8); LYMPH % 20 % (24-48); MEAN CORPUSCULAR HEMOGLOBIN 28 pg (25-35); MEAN CORPUSCULAR HGB CONC 32 g/dL (31-37); MEAN CORPUSCULAR VOLUME 86 fL (79-100); MONO % 5 % (0-9); NEUT % 72 % (31-73); PLATELET COUNT 396 x10^3/uL (140-400); RED BLOOD COUNT 3.89 x10^6/uL (4.30-5.70); RED CELL DISTRIBUTION WIDTH 16.3 % (11.5-14.5)
[2016-07-21 09:01] LABS: CALCIUM 8.8 mg/dL (8.5-10.1); CREATININE 0.7 mg/dL (0.7-1.3); GFR 117.1; POTASSIUM 4.1 mmol/L (3.5-5.1)
--- NOTE | 2016-07-21 10:01 | PDOC ---
PROGRESS NOTES Subjective Subjective He c/o discomfort from PICC line and left shoulder area pain. Objective Objective Vital Signs Date Time Temp Pulse Resp B/P Pulse Ox O2 Delivery O2 Flow Rate FiO2 07/21/16 07:00 98.5 95 20 126/81 93 Room Air 98.5 07/20/16 20:43 2.0 Intake and Output 07/21/16 07:00 Intake Total 2740 ml Output Total 600 ml Balance 2140 ml Intake Oral 2740 ml Output Urine Total 600 ml # Voids 2 Physical Exam Physical Exam He is sitting up in bedside chair and seems comfortable and moving left shoulder better. Assessment Assessment Problems Medical Problems: (1) Acute renal injury Status: Acute (2) Dehydration Status: Acute (3) Hyponatremia Status: Acute (4) Nausea & vomiting Status: Acute (5) Uncontrolled diabetes mellitus Status: Acute Plan Plan of Care To continue present care as tolerated. Comment Review of Relevant I have reviewed the following items [place] (where applicable) has been applied. Labs Laboratory Tests Test 07/19/16 10:42 07/19/16 13:05 07/19/16 13:40 07/19/16 14:44 Glucose (Fingerstick) 177mg/dL (70-99) 172mg/dL (70-99) 190mg/dL (70-99) Clostridium difficile Toxin (PCR) Negative (Negative) Test 07/19/16 20:30 07/20/16 07:40 07/20/16 07:59 07/20/16 10:20 Glucose (Fingerstick) 344mg/dL (70-99) 128mg/dL (70-99) 137mg/dL (70-99) White Blood Count 9.3x10^3/uL (4.0-11.0) Red Blood Count 3.48x10^6/uL (4.30-5.70) Hemoglobin 9.6g/dL (13.0-17.5) Hematocrit 30.2% (39.0-53.0) Mean Corpuscular Volume 87fL (79-100) Mean Corpuscular Hemoglobin 28pg (25-35) Mean Corpuscular Hemoglobin Concent 32g/dL (31-37) Red Cell Distribution Width 15.8% (11.5-14.5) Platelet Count 340x10^3/uL (140-400) Neutrophils (%) (Auto) 65% (31-73) Lymphocytes (%) (Auto) 28% (24-48) Monocytes (%) (Auto) 5% (0-9) Eosinophils (%) (Auto) 1% (0-3) Basophils (%) (Auto) 1% (0-3) Neutrophils # (Auto) 6.0x10^3uL (1.8-7.7) Lymphocytes # (Auto) 2.6x10^3/uL (1.0-4.8) Monocytes # (Auto) 0.5x10^3/uL (0.0-1.1) Eosinophils # (Auto) 0.1x10^3/uL (0.0-0.7) Basophils # (Auto) 0.1x10^3/uL (0.0-0.2) Sodium Level 143mmol/L (136-145) Potassium Level 4.5mmol/L (3.5-5.1) Chloride Level 105mmol/L (98-107) Carbon Dioxide Level 30mmol/L (21-32) Anion Gap 8 (6-14) Blood Urea Nitrogen 15mg/dL (8-26) Creatinine 0.8mg/dL (0.7-1.3) Estimated GFR (Cockcroft-Gault) 100.4 Glucose Level 158mg/dL (70-99) Calcium Level 8.3mg/dL (8.5-10.1) Test 07/20/16 16:53 07/20/16 20:21 07/21/16 07:34 07/21/16 08:35 Glucose (Fingerstick) 129mg/dL (70-99) 213mg/dL (70-99) 111mg/dL (70-99) White Blood Count 9.0x10^3/uL (4.0-11.0) Red Blood Count 3.89x10^6/uL (4.30-5.70) Hemoglobin 10.7g/dL (13.0-17.5) Hematocrit 33.7% (39.0-53.0) Mean Corpuscular Volume 86fL (79-100) Mean Corpuscular Hemoglobin 28pg (25-35) Mean Corpuscular Hemoglobin Concent 32g/dL (31-37) Red Cell Distribution Width 16.3% (11.5-14.5) Platelet Count 396x10^3/uL (140-400) Neutrophils (%) (Auto) 72% (31-73) Lymphocytes (%) (Auto) 20% (24-48) Monocytes (%) (Auto) 5% (0-9) Eosinophils (%) (Auto) 2% (0-3) Basophils (%) (Auto) 1% (0-3) Neutrophils # (Auto) 6.5x10^3uL (1.8-7.7) Lymphocytes # (Auto) 1.8x10^3/uL (1.0-4.8) Monocytes # (Auto) 0.5x10^3/uL (0.0-1.1) Eosinophils # (Auto) 0.2x10^3/uL (0.0-0.7) Basophils # (Auto) 0.1x10^3/uL (0.0-0.2) Sodium Level 145mmol/L (136-145) Potassium Level 4.1mmol/L (3.5-5.1) Chloride Level 106mmol/L (98-107) Carbon Dioxide Level 31mmol/L (21-32) Anion Gap 8 (6-14) Blood Urea Nitrogen 11mg/dL (8-26) Creatinine 0.7mg/dL (0.7-1.3) Estimated GFR (Cockcroft-Gault) 117.1 Glucose Level 120mg/dL (70-99) Calcium Level 8.8mg/dL (8.5-10.1) Laboratory Tests Test 07/20/16 10:20 07/20/16 16:53 07/20/16 20:21 07/21/16 07:34 Glucose (Fingerstick) 137mg/dL (70-99) 129mg/dL (70-99) 213mg/dL (70-99) 111mg/dL (70-99) Test 07/21/16 08:35 White Blood Count 9.0x10^3/uL (4.0-11.0) Red Blood Count 3.89x10^6/uL (4.30-5.70) Hemoglobin 10.7g/dL (13.0-17.5) Hematocrit 33.7% (39.0-53.0) Mean Corpuscular Volume 86fL (79-100) Mean Corpuscular Hemoglobin 28pg (25-35) Mean Corpuscular Hemoglobin Concent 32g/dL (31-37) Red Cell Distribution Width 16.3% (11.5-14.5) Platelet Count 396x10^3/uL (140-400) Neutrophils (%) (Auto) 72% (31-73) Lymphocytes (%) (Auto) 20% (24-48) Monocytes (%) (Auto) 5% (0-9) Eosinophils (%) (Auto) 2% (0-3) Basophils (%) (Auto) 1% (0-3) Neutrophils # (Auto) 6.5x10^3uL (1.8-7.7) Lymphocytes # (Auto) 1.8x10^3/uL (1.0-4.8) Monocytes # (Auto) 0.5x10^3/uL (0.0-1.1) Eosinophils # (Auto) 0.2x10^3/uL (0.0-0.7) Basophils # (Auto) 0.1x10^3/uL (0.0-0.2) Sodium Level 145mmol/L (136-145) Potassium Level 4.1mmol/L (3.5-5.1) Chloride Level 106mmol/L (98-107) Carbon Dioxide Level 31mmol/L (21-32) Anion Gap 8 (6-14) Blood Urea Nitrogen 11mg/dL (8-26) Creatinine 0.7mg/dL (0.7-1.3) Estimated GFR (Cockcroft-Gault) 117.1 Glucose Level 120mg/dL (70-99) Calcium Level 8.8mg/dL (8.5-10.1) Microbiology 07/17/16 Blood Culture - Preliminary, Resulted NO GROWTH AFTER 4 DAYS 07/09/16 Urine Culture - Final, Complete 07/09/16 Urine Culture Result 1 (EMILI) - Final, Complete 07/09/16 Antimicrobic Susceptibility - Final, Complete 07/14/16 Anaerobic/Aerobic Culture - Final, Complete 07/14/16 Anaerobic Culture Result 1 (EMILI) - Final, Complete 07/14/16 Aerobic Culture - Final, Complete 07/14/16 Aerobic Culture Result 1 (EMILI) - Final, Complete 07/14/16 Antimicrobic Susceptibility - Final, Complete Medications Current Medications Sodium Chloride (Iv Sodium Chloride 0.9% 1000ml Bag) 1,000 ml @ 1,000 mls/hr Q1H IV Last administered on 07/09/16 19:34; Start 07/09/16 at 19:18; Stop at 20:17; Status DC Hydromorphone HCl (Dilaudid) 2 mg 1X ONCE IV ; Start 07/09/16 at 19:30; Stop at 19:30; Status DC Ondansetron HCl (Zofran) 4 mg 1X ONCE IV Last administered on 07/09/16 19:33 ; Start 07/09/16 at 19:30; Stop 07/09/16 at 19:31; Status DC Hydromorphone HCl (Dilaudid) 1 mg 1X ONCE IV Last administered on 07/09/16 19 :33; Start 07/09/16 at 19:30; Stop 07/09/16 at 19:31; Status DC Ondansetron HCl (Zofran) 4 mg PRN Q8HRS PRN IV NAUSEA/VOMITING; Start 07/09/16 at 20:30; Stop 07/09/16 at 21:00; Status DC Morphine Sulfate 4 mg 4 mg PRN Q2HR PRN IV PAIN Last administered on 07/10/16 06:36; Start 07/09/16 at 20:30; Stop 07/10/16 at 13:00; Status DC Sodium Chloride (Iv Sodium Chloride 0.9% 1000ml Bag) 1,000 ml @ 150 mls/hr Q6H40M IV Last administered on 07/09/16 20:41; Start 07/09/16 at 20:24; Stop 07/10/16 at 15:29; Status DC Acetaminophen (Tylenol) 650 mg PRN Q4HRS PRN PO FEVER; Start 07/09/16 at 20:30 ; Stop 07/09/16 at 21:00; Status DC Acetaminophen (Tylenol) 650 mg PRN Q6HRS PRN PO FEVER; Start 07/09/16 at 21:00 ; Stop 07/10/16 at 15:28; Status DC Ondansetron HCl 4 mg 4 mg PRN Q6HRS PRN IV NAUSEA/VOMITING Last administered on 07/21/16 08:36; Start 07/09/16 at 21:00 Sodium Chloride (Iv Sodium Chloride 0.9% 1000ml Bag) 1,000 ml @ 150 mls/hr Q6H40M IV Last administered on 07/13/16 17:59; Start 07/09/16 at 21:00; Stop 07/13/16 at 19:27; Status DC Insulin Aspart (Novolog) 0-9 UNITS TIDWMEALS SQ Last administered on 07/19/16 16:20; Start 07/10/16 at 08:00 Dextrose 12.5 gm 12.5 gm PRN Q15MIN PRN IV SEE COMMENTS; Start 07/09/16 at 21: 00 Levofloxacin/ Dextrose (LEVAQUIN 500mg PREMIX) 100 ml @ 100 mls/hr Q24H IV Last administered on 07/12/16 02:49; Start 07/09/16 at 22:00; Stop 07/12/16 at 10:37; Status DC Guaifenesin (Mucinex) 600 mg BID PO Last administered on 07/21/16 08:30; Start 07/09/16 at 21:00 Albuterol Sulfate 2.5 mg 2.5 mg PRN Q4HRS PRN NEB SHORTNESS OF BREATH; Start at 21:00 Sodium Chloride (Iv Sodium Chloride 0.9% 1000ml Bag) 1,000 ml @ 0 mls/hr 1X ONCE IV Last administered on 07/10/16 10:27; Start 07/10/16 at 10:30; Stop at 10:31; Status DC Alprazolam (Xanax) 0.5 mg PRN Q8HRS PRN PO ANXIETY / AGITATION Last administered on 07/21/16 08:42; Start 07/10/16 at 13:00 Acetaminophen/ Hydrocodone Bitart (Lortab 5/325) 1 tab PRN Q6HRS PRN PO MODERATE - SEVERE PAIN Last administered on 07/20/16 20:43; Start 07/10/16 at 13:00 Acetaminophen (Tylenol) 650 mg PRN Q6HRS PRN PO MILD PAIN / TEMP Last administered on 07/14/16 00:08; Start 07/10/16 at 13:00 Heparin Sodium (Porcine) 5000 unit 5,000 unit Q8HRS SQ Last administered on 14:02; Start 07/10/16 at 14:00; Stop 07/11/16 at 22:55; Status DC Magnesium Sulfate/ Dextrose (Magnesium Sulfate PREMIX 2GM) 50 ml @ 25 mls/hr PRN DAILY PRN IV for Mag < 1.7 on am labs; Start 07/10/16 at 14:00 Diphenhydramine HCl (Benadryl) 25 mg PRN Q6HRS PRN IVP ITCHING Last administered on 07/13/16 01:52; Start 07/11/16 at 01:30 Lorazepam 2 mg 2 mg PRN Q4HRS PRN IV ANXIETY / AGITATION Last administered on 10:19; Start 07/11/16 at 01:30 Albumin Human (Albuminar) 100 ml @ 100 mls/hr TID IV Last administered on 07/13 13:56; Start 07/11/16 at 14:00; Stop 07/13/16 at 09:59; Status DC Insulin Aspart (Novolog) 10 units TIDAC SQ Last administered on 07/12/16 08:46 ; Start 07/11/16 at 12:30; Stop 07/12/16 at 09:17; Status DC Insulin Detemir 25 units 25 units QHS SQ Last administered on 07/12/16 01:48; Start 07/11/16 at 21:00; Stop 07/12/16 at 09:17; Status DC Heparin Sodium/ Dextrose 500 ml @ 0 mls/hr CONT PRN IV SEE I/O RECORD Last administered on 07/13/16 12:12; Start 07/11/16 at 23:00; Stop 07/13/16 at 12:32 ; Status DC Heparin Sodium (Porcine) 3,800 unit PRN Q6HRS PRN IV FOR UFH LEVEL LESS THAN 0.2 Last administered on 07/12/16 19:37; Start 07/11/16 at 23:00; Stop at 12:32; Status DC Heparin Sodium (Porcine) 1,900 unit PRN Q6HRS PRN IV FOR UFH LEVEL 0.2 - 0.29 Last administered on 07/13/16 02:33; Start 07/11/16 at 23:00; Stop 07/13/16 at 12:32; Status DC Warfarin Sodium (Coumadin Per Pharmacy) 1 each PRN DAILY PRN MC PER PROTOCOL Last administered on 07/17/16 13:43; Start 07/11/16 at 23:00; Stop 07/19/16 at 12:42; Status DC Warfarin Sodium (Coumadin) 5 mg 1X ONCE PO Last administered on 07/12/16 01: 45; Start 07/12/16 at 00:15; Stop 07/12/16 at 00:16; Status DC Info (Anti-Coagulation Monitoring By Pharmacy) 1 each PRN DAILY PRN MC SEE COMMENTS Last administered on 07/16/16 14:36; Start 07/11/16 at 23:45 Heparin Sodium (Porcine) 10,000 unit 1X ONCE IV Last administered on 01:48; Start 07/12/16 at 01:15; Stop 07/12/16 at 01:16; Status DC Insulin Aspart (Novolog) 12 units TIDAC SQ Last administered on 07/13/16 12:08 ; Start 07/12/16 at 11:30; Stop 07/13/16 at 12:32; Status DC Insulin Detemir (Levemir) 30 units QHS SQ Last administered on 07/12/16 21:07 ; Start 07/12/16 at 21:00; Stop 07/13/16 at 12:32; Status DC Tramadol HCl (Ultram) 50 mg PRN Q6HRS PRN PO PAIN; Start 07/12/16 at 10:15 Tramadol HCl (Ultram) 50 mg 1X ONCE PO Last administered on 07/12/16 14:32; Start 07/12/16 at 10:15; Stop 07/12/16 at 10:29; Status DC Methylprednisolone Acetate (Depo-Medrol 40mg Vial) 40 mg 1X ONCE IM ; Start at 10:30; Stop 07/12/16 at 10:31; Status DC Bupivacaine HCl (Sensorcaine-Mpf 0.25%) 10 ml 1X ONCE IJ ; Start 07/12/16 at 10 :30; Stop 07/12/16 at 10:31; Status DC Hydromorphone HCl 1 mg 1 mg 1X ONCE IV Last administered on 07/12/16 10:55; Start 07/12/16 at 10:30; Stop 07/12/16 at 10:46; Status DC Cefazolin Sodium 2 gm/Sodium Chloride 50 ml @ 100 mls/hr Q8HRS IV ; Start 07/12 at 11:00; Status Cancel Cefazolin Sodium/ Sodium Chloride (Ancef/Iv Sodium Chloride 0.9% 50ml) 50 ml @ 100 mls/hr Q8HRS IV Last administered on 07/21/16 05:43; Start 07/12/16 at 11: 00 Warfarin Sodium (Coumadin) 6 mg 1X WARF ONCE PO Last administered on 17:58; Start 07/12/16 at 16:00; Stop 07/12/16 at 16:01; Status DC Hydromorphone HCl (Dilaudid) 1 mg PRN Q4HRS PRN IVP PAIN Last administered on 22:25; Start 07/12/16 at 15:30 Polyethylene Glycol (miraLAX PACKET) 17 gm BID PO Last administered on 08:07; Start 07/12/16 at 21:00 Docusate Sodium (Colace) 100 mg PRN DAILY PRN PO CONSTIPATION; Start 07/12/16 at 15:30 Docusate Sodium (Colace) 100 mg DAILY PO Last administered on 07/15/16 08:07; Start 07/13/16 at 09:00 Magnesium Hydroxide (Milk Of Magnesia) 2,400 mg PRN DAILY PRN PO CONSTIPATION; Start 07/12/16 at 15:30 Gadobutrol (Gadavist) 7 mmol 1X ONCE IV Last administered on 07/13/16 10:45; Start 07/13/16 at 10:45; Stop 07/13/16 at 10:51; Status DC Gadobutrol (Gadavist) 7 mmol 1X ONCE IV Last administered on 07/13/16 10:45; Start 07/13/16 at 10:45; Stop 07/13/16 at 10:51; Status DC Warfarin Sodium (Coumadin) 10 mg 1X WARF ONCE PO Last administered on 17:56; Start 07/13/16 at 16:00; Stop 07/13/16 at 16:01; Status DC Enoxaparin Sodium (Lovenox Per Pharmacy Treatment Dosing) 1 each PRN DAILY PRN MC SEE COMMENTS; Start 07/13/16 at 12:30 Insulin Aspart (Novolog) 15 units TIDAC SQ Last administered on 07/20/16 17:33 ; Start 07/13/16 at 16:30 Insulin Detemir (Levemir) 40 units QHS SQ Last administered on 07/20/16 20:49 ; Start 07/13/16 at 21:00 Enoxaparin Sodium (Lovenox 150mg Syringe) 140 mg BID SQ Last administered on 20:42; Start 07/13/16 at 21:00 Warfarin Sodium (Coumadin) 15 mg 1X WARF ONCE PO ; Start 07/14/16 at 16:00; Stop 07/14/16 at 16:01; Status DC Ondansetron HCl (Zofran) 4 mg PRN Q6HRS PRN IV Nausea; Start 07/14/16 at 13:45 ; Stop 07/14/16 at 20:00; Status DC Fentanyl Citrate (Fentanyl 2ml Vial) 25 mcg PRN Q5MIN PRN IV MILD PAIN; Start 07/14/16 at 13:45; Stop 07/14/16 at 20:00; Status DC Fentanyl Citrate (Fentanyl 2ml Vial) 50 mcg PRN Q5MIN PRN IV MODERATE PAIN Last administered on 07/14/16 18:15; Start 07/14/16 at 13:45; Stop 07/15/16 at 20:00; Status DC Morphine Sulfate 1 mg 1 mg PRN Q10MIN PRN IV SEVERE PAIN; Start 07/14/16 at 13: 45; Stop 07/14/16 at 20:00; Status DC Lactated Ringer's (Iv Lactated Ringers) 1,000 ml @ 30 mls/hr Q24H IV ; Start at 13:42; Stop 07/14/16 at 19:44; Status DC Lidocaine HCl 2 ml 1X PRN PRN ID IV START; Start 07/14/16 at 13:45; Stop at 20:00; Status DC Hydromorphone HCl (Dilaudid) 0.5 mg PRN Q10MIN PRN IV SEV PAIN,Second choice; Start 07/14/16 at 13:45; Stop 07/14/16 at 18:00; Status DC Prochlorperazine Edisylate (Compazine) 5 mg PACU PRN PRN IV NAUSEA Last administered on 07/14/16t 17:55; Start 07/14/16 at 13:45; Stop 07/14/16 at 20:00 ; Status DC Bupivacaine HCl/ Epinephrine Bitart 50 ml 50 ml STK-MED ONCE .ROUTE ; Start at 15:20; Stop 07/14/16 at 15:21; Status DC Propofol (Diprivan) 20 ml @ As Directed STK-MED ONCE IV ; Start 07/14/16 at 15: 26; Stop 07/14/16 at 15:27; Status DC Lidocaine HCl 100 mg STK-MED ONCE .ROUTE ; Start 07/14/16 at 15:26; Stop at 15:27; Status DC Fentanyl Citrate (Fentanyl 2ml Vial) 100 mcg STK-MED ONCE .ROUTE ; Start at 15:27; Stop 07/14/16 at 15:28; Status DC Rocuronium Wheeler (Zemuron) 50 mg STK-MED ONCE .ROUTE ; Start 07/14/16 at 15:27 ; Stop 07/14/16 at 15:28; Status DC Dexamethasone Sodium Phosphate (Decadron) 20 mg STK-MED ONCE .ROUTE ; Start at 16:34; Stop 07/14/16 at 16:35; Status DC Desflurane (Suprane) 30 ml STK-MED ONCE IH ; Start 07/14/16 at 16:35; Stop 07/14 at 16:36; Status DC Ondansetron HCl (Zofran) 4 mg STK-MED ONCE .ROUTE ; Start 07/14/16 at 16:46; Stop 07/14/16 at 16:47; Status DC Glycopyrrolate (Robinul) 1 mg STK-MED ONCE .ROUTE ; Start 07/14/16 at 16:46; Stop 07/14/16 at 16:47; Status DC Neostigmine Methylsulfate 5 mg STK-MED ONCE .ROUTE ; Start 07/14/16 at 16:46; Stop 07/14/16 at 16:47; Status DC Fentanyl Citrate (Fentanyl 2ml Vial) 100 mcg STK-MED ONCE .ROUTE ; Start at 16:57; Stop 07/14/16 at 16:58; Status DC Insulin Aspart 10 units 10 units 1X ONCE SQ Last administered on 07/15/16 08: 26; Start 07/15/16 at 08:30; Stop 07/15/16 at 08:31; Status DC Cefazolin Sodium/ Dextrose (Ancef 2gm Premix) 50 ml @ 100 mls/hr 1X PREOP PRN IV PER PROTOCOL Last administered on 07/16/16 05:56; Start 07/16/16 at 10:30; Stop 07/16/16 at 18:00; Status DC Insulin Aspart (Novolog) 15 units 1X ONCE SQ Last administered on 07/15/16 12 :25; Start 07/15/16 at 12:15; Stop 07/15/16 at 12:16; Status DC Warfarin Sodium (Coumadin - No Dose Today) 1 each 1X WARF ONCE MC Last administered on 07/15/16 16:00; Start 07/15/16 at 16:00; Stop 07/15/16 at 16:01 ; Status DC Rocuronium Wheeler (Zemuron) 50 mg STK-MED ONCE .ROUTE ; Start 07/16/16 at 09:56 ; Stop 07/16/16 at 09:57; Status DC Dexamethasone Sodium Phosphate (Decadron) 20 mg STK-MED ONCE .ROUTE ; Start at 09:58; Stop 07/16/16 at 09:59; Status DC Ondansetron HCl 4 mg 4 mg STK-MED ONCE .ROUTE ; Start 07/16/16 at 09:58; Stop at 09:59; Status DC Propofol (Diprivan) 20 ml @ As Directed STK-MED ONCE IV ; Start 07/16/16 at 09: 58; Stop 07/16/16 at 09:59; Status DC Lidocaine HCl 100 mg STK-MED ONCE .ROUTE ; Start 07/16/16 at 09:58; Stop at 09:59; Status DC Fentanyl Citrate (Fentanyl 5ml Vial) 250 mcg STK-MED ONCE .ROUTE ; Start at 09:58; Stop 07/16/16 at 09:59; Status DC Midazolam HCl (Versed) 2 mg STK-MED ONCE .ROUTE ; Start 07/16/16 at 09:58; Stop 07/16/16 at 09:59; Status DC Famotidine (Pepcid) 20 mg STK-MED ONCE .ROUTE ; Start 07/16/16 at 09:58; Stop at 09:59; Status DC Succinylcholine Chloride (Anectine) 200 mg STK-MED ONCE .ROUTE ; Start 07/16/16 at 10:10; Stop 07/16/16 at 10:11; Status DC Succinylcholine Chloride 200 mg 200 mg STK-MED ONCE .ROUTE ; Start 07/16/16 at 10:26; Stop 07/16/16 at 10:27; Status DC Acetaminophen (Ofirmev) 100 ml @ As Directed STK-MED ONCE IV ; Start 07/16/16 at 11:49; Stop 07/16/16 at 11:50; Status DC Glycopyrrolate (Robinul) 1 mg STK-MED ONCE .ROUTE ; Start 07/16/16 at 11:55; Stop 07/16/16 at 11:56; Status DC Neostigmine Methylsulfate 5 mg STK-MED ONCE .ROUTE ; Start 07/16/16 at 11:55; Stop 07/16/16 at 11:56; Status DC Ondansetron HCl (Zofran) 4 mg PRN Q6HRS PRN IV Nausea; Start 07/16/16 at 12:30 ; Stop 07/17/16 at 12:29; Status DC Fentanyl Citrate (Fentanyl 2ml Vial) 25 mcg PRN Q5MIN PRN IV MILD PAIN; Start 07/16/16 at 12:30; Stop 07/17/16 at 12:29; Status DC Fentanyl Citrate (Fentanyl 2ml Vial) 50 mcg PRN Q5MIN PRN IV MODERATE PAIN; Start 07/16/16 at 12:30; Stop 07/17/16 at 12:29; Status DC Morphine Sulfate 1 mg 1 mg PRN Q10MIN PRN IV SEVERE PAIN; Start 07/16/16 at 12: 30; Stop 07/17/16 at 12:29; Status DC Lactated Ringer's (Iv Lactated Ringers) 1,000 ml @ 30 mls/hr Q24H IV ; Start at 12:28; Stop 07/17/16 at 00:27; Status DC Lidocaine HCl 2 ml 1X PRN PRN ID IV START; Start 07/16/16 at 12:30; Stop at 12:29; Status DC Hydromorphone HCl (Dilaudid) 0.5 mg PRN Q10MIN PRN IV SEV PAIN,Second choice Last administered on 07/16/16 14:38; Start 07/16/16 at 12:30; Stop 07/17/16 at 12:29; Status DC Prochlorperazine Edisylate (Compazine) 5 mg PACU PRN PRN IV NAUSEA; Start 07/16 at 12:30; Stop 07/17/16 at 12:29; Status DC Warfarin Sodium (Coumadin) 10 mg 1X WARF ONCE PO Last administered on 15:58; Start 07/16/16 at 16:00; Stop 07/16/16 at 16:01; Status DC Ondansetron HCl (Zofran) 4 mg PRN Q6HRS PRN IV Nausea Last administered on 07/19 14:09; Start 07/19/16 at 07:00; Stop 07/20/16 at 06:59; Status DC Fentanyl Citrate (Fentanyl 2ml Vial) 25 mcg PRN Q5MIN PRN IV MILD PAIN; Start 07/19/16 at 07:00; Stop 07/20/16 at 06:59; Status DC Fentanyl Citrate (Fentanyl 2ml Vial) 50 mcg PRN Q5MIN PRN IV MODERATE PAIN; Start 07/19/16 at 07:00; Stop 07/20/16 at 06:59; Status DC Morphine Sulfate 1 mg 1 mg PRN Q10MIN PRN IV SEVERE PAIN; Start 07/19/16 at 07: 00; Stop 07/20/16 at 06:59; Status DC Lactated Ringer's (Iv Lactated Ringers) 1,000 ml @ 0 mls/hr Q0M IV Last administered on 07/19/16 10:53; Start 07/19/16 at 07:00; Stop 07/19/16 at 18:59 ; Status DC Lidocaine HCl 2 ml 1X PRN PRN ID IV START; Start 07/19/16 at 07:00; Stop at 06:59; Status DC Hydromorphone HCl (Dilaudid) 0.5 mg PRN Q10MIN PRN IV SEVERE PAIN, Second choice; Start 07/19/16 at 07:00; Stop 07/20/16 at 06:59; Status DC Prochlorperazine Edisylate (Compazine) 5 mg PACU PRN PRN IV NAUSEA; Start 07/19 at 07:00; Stop 07/20/16 at 06:59; Status DC Sodium Chloride (Normal Saline Flush) 10 ml QSHIFT PRN IV AFTER MEDS AND BLOOD DRAWS; Start 07/17/16 at 12:00; Stop 07/17/16 at 12:06; Status DC Lidocaine HCl (Xylocaine 2% Topical 5gm Tube) 1 silvia 1X ONCE TP ; Start at 12:00; Stop 07/17/16 at 12:06; Status DC Lidocaine HCl (Viscous Lidocaine) 15 ml 1X ONCE MM ; Start 07/17/16 at 12:00; Stop 07/17/16 at 12:06; Status DC Benzocaine (Hurricaine One) 1 spray 1X ONCE MM ; Start 07/17/16 at 12:00; Stop 07/17/16 at 12:06; Status DC Bupivacaine HCl/ Epinephrine Bitart (Sensorcaine-Epi 0.25%-1:[id number] Mpf) 30 ml STK-MED ONCE .ROUTE ; Start 07/19/16 at 07:20; Stop 07/19/16 at 07:21; Status DC Sodium Chloride (Normal Saline Flush) 10 ml QSHIFT PRN IV AFTER MEDS AND BLOOD DRAWS; Start 07/19/16 at 10:15 Lidocaine HCl (Xylocaine 2% Topical 5gm Tube) 1 silvia 1X ONCE TP ; Start at 10:15; Stop 07/19/16 at 10:16; Status DC Lidocaine HCl (Viscous Lidocaine) 15 ml 1X ONCE MM ; Start 07/19/16 at 10:15; Stop 07/19/16 at 10:16; Status DC Benzocaine 1 spray 1 spray 1X ONCE MM ; Start 07/19/16 at 10:15; Stop 07/19/16 at 10:16; Status DC Propofol (Diprivan) 20 ml @ As Directed STK-MED ONCE IV ; Start 07/19/16 at 10: 37; Stop 07/19/16 at 10:38; Status DC Lidocaine HCl 100 mg STK-MED ONCE .ROUTE ; Start 07/19/16 at 10:37; Stop at 10:38; Status DC Ondansetron HCl (Zofran) 4 mg STK-MED ONCE .ROUTE ; Start 07/19/16 at 10:37; Stop 07/19/16 at 10:38; Status DC Dexamethasone Sodium Phosphate (Decadron) 20 mg STK-MED ONCE .ROUTE ; Start at 10:37; Stop 07/19/16 at 10:38; Status DC Fentanyl Citrate (Fentanyl 2ml Vial) 100 mcg STK-MED ONCE .ROUTE ; Start at 10:37; Stop 07/19/16 at 10:38; Status DC Rocuronium Wheeler (Zemuron) 50 mg STK-MED ONCE .ROUTE ; Start 07/19/16 at 10:54 ; Stop 07/19/16 at 10:55; Status DC Ephedrine Sulfate 50 mg STK-MED ONCE IV ; Start 07/19/16 at 11:05; Stop at 11:06; Status DC Phenylephrine HCl 1 mg STK-MED ONCE IV ; Start 07/19/16 at 11:07; Stop 07/19/16 at 11:08; Status DC Sevoflurane 30 ml 30 ml STK-MED ONCE IH ; Start 07/19/16 at 11:14; Stop at 11:15; Status DC Propofol (Diprivan) 20 ml @ As Directed STK-MED ONCE IV ; Start 07/19/16 at 12: 15; Stop 07/19/16 at 12:16; Status DC Neostigmine Methylsulfate 5 mg STK-MED ONCE .ROUTE ; Start 07/19/16 at 12:16; Stop 07/19/16 at 12:17; Status DC Glycopyrrolate (Robinul) 1 mg STK-MED ONCE .ROUTE ; Start 07/19/16 at 12:16; Stop 07/19/16 at 12:17; Status DC Phenylephrine HCl 1 mg 1 mg STK-MED ONCE IV ; Start 07/19/16 at 12:25; Stop at 12:26; Status DC Cefazolin Sodium/ Dextrose (Ancef 2gm Premix) 50 ml @ 100 mls/hr 1X PREOP PRN IV FOR SURGERY; Start 07/22/16 at 06:00; Stop 07/22/16 at 18:00 Ondansetron HCl (Zofran) 4 mg PRN Q6HRS PRN IV Nausea; Start 07/22/16 at 07:00; Stop 07/23/16 at 06:59 Fentanyl Citrate (Fentanyl 2ml Vial) 25 mcg PRN Q5MIN PRN IV MILD PAIN; Start 07/22/16 at 07:00; Stop 07/23/16 at 06:59 Fentanyl Citrate (Fentanyl 2ml Vial) 50 mcg PRN Q5MIN PRN IV MODERATE PAIN; Start 07/22/16 at 07:00; Stop 07/23/16 at 06:59 Morphine Sulfate 1 mg 1 mg PRN Q10MIN PRN IV SEVERE PAIN; Start 07/22/16 at 07: 00; Stop 07/23/16 at 06:59 Lactated Ringer's (Iv Lactated Ringers) 1,000 ml @ 0 mls/hr Q0M IV ; Start 07/22 at 07:00; Stop 07/22/16 at 18:59 Lidocaine HCl 2 ml 1X PRN PRN ID IV START; Start 07/22/16 at 07:00; Stop at 06:59 Hydromorphone HCl (Dilaudid) 0.5 mg PRN Q10MIN PRN IV SEVERE PAIN, Second choice; Start 07/22/16 at 07:00; Stop 07/23/16 at 06:59 Prochlorperazine Edisylate (Compazine) 5 mg PACU PRN PRN IV NAUSEA; Start at 07:00; Stop 07/23/16 at 06:59 Active Scripts Active Phenergan (Promethazine HCl) 25 Mg Supp.rect 25 Mg RC Q8HRS PRN Zofran Odt (Ondansetron) 4 Mg Tab.rapdis 1 Tab SL Q8HRS PRN Vitals/I & O Vital Sign - Last 24 Hours 07/20/16 07/20/16 07/20/16 07/20/16 10:49 12:32 14:52 19:00 Temp 98.3 98.3 98.3 98.3 98.3 98.3 Pulse 89 89 92 Resp 19 20 19 18 B/P 147/74 146/64 139/76 Pulse Ox 93 93 93 94 O2 Delivery Room Air Room Air Room Air Room Air 07/20/16 07/20/16 07/20/16 07/20/16 20:00 20:43 21:43 22:47 Temp 98.7 98.7 Pulse 86 Resp 18 18 19 B/P 148/73 Pulse Ox 94 96 96 O2 Delivery Room Air Room Air Room Air Room Air O2 Flow Rate 2.0 07/21/16 07/21/16 02:36 07:00 Temp 98.7 98.5 98.7 98.5 Pulse 83 95 Resp 18 20 B/P 149/74 126/81 Pulse Ox 93 93 O2 Delivery Room Air Room Air Intake and Output 07/20/16 07/20/16 07/21/16 15:00 23:00 07:00 Intake Total 490 ml 950 ml 1300 ml Output Total 600 ml Balance 490 ml 950 ml 700 ml CLIFFORD BURGOS MD Jul 21, 2016 10:01
--- NOTE | 2016-07-21 10:18 | PDOC ---
PROGRESS NOTES Chief Complaint Chief Complaint Shoulder pain Septic joint Bronchitis ASSESSMENT AND PLAN: 1. Septic L shoulder joint: s/p I&D in OR on 07/[address] Wallace. s /p Irrigation and debridement, wound vac removal, closure with packing placement on 07/19. Final closure on 2. Sepsis: resolved. blood cultures with MSSA on 07/11 and 07/14. HARISH no vegetation, continue IV cefazolin, ID following. s/p PICC 3. Pain control: has IV morphine; 4. NELIDA: PoA, vasomotor. now resolved 5. Hyponatremia: POA. now resolved 6. DM2: poor control at home (HgbA1c 11), fair control here. on long- and short-acting insulin plus ISS 7. UTI: POA. culture with MSSA 8. Bronchitis: POA. essentially resolved. minor cough persisting 9. LLL lung nodule: OP F/U 10. UE DVT: currently on therapeutic bid Lovenox. change to oral once stable. 11. Hypoalbuminemia: severe, in BMI 38. 12. 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 History of Present Illness History of Present Illness sitting in chair at bedside no acute events doesn't want PICC TODAY Vitals Vitals Vital Signs Date Time Temp Pulse Resp B/P Pulse Ox O2 Delivery O2 Flow Rate FiO2 07/21/16 07:00 98.5 95 20 126/81 93 Room Air 98.5 07/20/16 20:43 2.0 Physical Exam General: Alert, Oriented X3, Cooperative, No acute distress Heart: Regular rate, Normal S1, Normal S2, No murmurs Lungs: Clear, Other (No wheezing) Abdomen: Soft, No tenderness Extremities: Other Skin: No rashes, No breakdown, Other Labs LABS Laboratory Tests Test 07/20/16 10:20 07/20/16 16:53 07/20/16 20:21 07/21/16 07:34 Glucose (Fingerstick) 137mg/dL (70-99) 129mg/dL (70-99) 213mg/dL (70-99) 111mg/dL (70-99) Test 07/21/16 08:35 White Blood Count 9.0x10^3/uL (4.0-11.0) Red Blood Count 3.89x10^6/uL (4.30-5.70) Hemoglobin 10.7g/dL (13.0-17.5) Hematocrit 33.7% (39.0-53.0) Mean Corpuscular Volume 86fL (79-100) Mean Corpuscular Hemoglobin 28pg (25-35) Mean Corpuscular Hemoglobin Concent 32g/dL (31-37) Red Cell Distribution Width 16.3% (11.5-14.5) Platelet Count 396x10^3/uL (140-400) Neutrophils (%) (Auto) 72% (31-73) Lymphocytes (%) (Auto) 20% (24-48) Monocytes (%) (Auto) 5% (0-9) Eosinophils (%) (Auto) 2% (0-3) Basophils (%) (Auto) 1% (0-3) Neutrophils # (Auto) 6.5x10^3uL (1.8-7.7) Lymphocytes # (Auto) 1.8x10^3/uL (1.0-4.8) Monocytes # (Auto) 0.5x10^3/uL (0.0-1.1) Eosinophils # (Auto) 0.2x10^3/uL (0.0-0.7) Basophils # (Auto) 0.1x10^3/uL (0.0-0.2) Sodium Level 145mmol/L (136-145) Potassium Level 4.1mmol/L (3.5-5.1) Chloride Level 106mmol/L (98-107) Carbon Dioxide Level 31mmol/L (21-32) Anion Gap 8 (6-14) Blood Urea Nitrogen 11mg/dL (8-26) Creatinine 0.7mg/dL (0.7-1.3) Estimated GFR (Cockcroft-Gault) 117.1 Glucose Level 120mg/dL (70-99) Calcium Level 8.8mg/dL (8.5-10.1) Assessment and Plan Assessmemt and Plan Problems Medical Problems: (1) Acute renal injury Status: Acute (2) Dehydration Status: Acute (3) Hyponatremia Status: Acute (4) Nausea & vomiting Status: Acute (5) Uncontrolled diabetes mellitus Status: Acute Problems: Comment Review of Relevant I have reviewed the following items [place] (where applicable) has been applied. Labs Laboratory Tests Test 07/19/16 10:42 07/19/16 13:05 07/19/16 13:40 07/19/16 14:44 Glucose (Fingerstick) 177mg/dL (70-99) 172mg/dL (70-99) 190mg/dL (70-99) Clostridium difficile Toxin (PCR) Negative (Negative) Test 07/19/16 20:30 07/20/16 07:40 07/20/16 07:59 07/20/16 10:20 Glucose (Fingerstick) 344mg/dL (70-99) 128mg/dL (70-99) 137mg/dL (70-99) White Blood Count 9.3x10^3/uL (4.0-11.0) Red Blood Count 3.48x10^6/uL (4.30-5.70) Hemoglobin 9.6g/dL (13.0-17.5) Hematocrit 30.2% (39.0-53.0) Mean Corpuscular Volume 87fL (79-100) Mean Corpuscular Hemoglobin 28pg (25-35) Mean Corpuscular Hemoglobin Concent 32g/dL (31-37) Red Cell Distribution Width 15.8% (11.5-14.5) Platelet Count 340x10^3/uL (140-400) Neutrophils (%) (Auto) 65% (31-73) Lymphocytes (%) (Auto) 28% (24-48) Monocytes (%) (Auto) 5% (0-9) Eosinophils (%) (Auto) 1% (0-3) Basophils (%) (Auto) 1% (0-3) Neutrophils # (Auto) 6.0x10^3uL (1.8-7.7) Lymphocytes # (Auto) 2.6x10^3/uL (1.0-4.8) Monocytes # (Auto) 0.5x10^3/uL (0.0-1.1) Eosinophils # (Auto) 0.1x10^3/uL (0.0-0.7) Basophils # (Auto) 0.1x10^3/uL (0.0-0.2) Sodium Level 143mmol/L (136-145) Potassium Level 4.5mmol/L (3.5-5.1) Chloride Level 105mmol/L (98-107) Carbon Dioxide Level 30mmol/L (21-32) Anion Gap 8 (6-14) Blood Urea Nitrogen 15mg/dL (8-26) Creatinine 0.8mg/dL (0.7-1.3) Estimated GFR (Cockcroft-Gault) 100.4 Glucose Level 158mg/dL (70-99) Calcium Level 8.3mg/dL (8.5-10.1) Test 07/20/16 16:53 07/20/16 20:21 07/21/16 07:34 07/21/16 08:35 Glucose (Fingerstick) 129mg/dL (70-99) 213mg/dL (70-99) 111mg/dL (70-99) White Blood Count 9.0x10^3/uL (4.0-11.0) Red Blood Count 3.89x10^6/uL (4.30-5.70) Hemoglobin 10.7g/dL (13.0-17.5) Hematocrit 33.7% (39.0-53.0) Mean Corpuscular Volume 86fL (79-100) Mean Corpuscular Hemoglobin 28pg (25-35) Mean Corpuscular Hemoglobin Concent 32g/dL (31-37) Red Cell Distribution Width 16.3% (11.5-14.5) Platelet Count 396x10^3/uL (140-400) Neutrophils (%) (Auto) 72% (31-73) Lymphocytes (%) (Auto) 20% (24-48) Monocytes (%) (Auto) 5% (0-9) Eosinophils (%) (Auto) 2% (0-3) Basophils (%) (Auto) 1% (0-3) Neutrophils # (Auto) 6.5x10^3uL (1.8-7.7) Lymphocytes # (Auto) 1.8x10^3/uL (1.0-4.8) Monocytes # (Auto) 0.5x10^3/uL (0.0-1.1) Eosinophils # (Auto) 0.2x10^3/uL (0.0-0.7) Basophils # (Auto) 0.1x10^3/uL (0.0-0.2) Sodium Level 145mmol/L (136-145) Potassium Level 4.1mmol/L (3.5-5.1) Chloride Level 106mmol/L (98-107) Carbon Dioxide Level 31mmol/L (21-32) Anion Gap 8 (6-14) Blood Urea Nitrogen 11mg/dL (8-26) Creatinine 0.7mg/dL (0.7-1.3) Estimated GFR (Cockcroft-Gault) 117.1 Glucose Level 120mg/dL (70-99) Calcium Level 8.8mg/dL (8.5-10.1) Laboratory Tests Test 07/20/16 10:20 07/20/16 16:53 07/20/16 20:21 07/21/16 07:34 Glucose (Fingerstick) 137mg/dL (70-99) 129mg/dL (70-99) 213mg/dL (70-99) 111mg/dL (70-99) Test 07/21/16 08:35 White Blood Count 9.0x10^3/uL (4.0-11.0) Red Blood Count 3.89x10^6/uL (4.30-5.70) Hemoglobin 10.7g/dL (13.0-17.5) Hematocrit 33.7% (39.0-53.0) Mean Corpuscular Volume 86fL (79-100) Mean Corpuscular Hemoglobin 28pg (25-35) Mean Corpuscular Hemoglobin Concent 32g/dL (31-37) Red Cell Distribution Width 16.3% (11.5-14.5) Platelet Count 396x10^3/uL (140-400) Neutrophils (%) (Auto) 72% (31-73) Lymphocytes (%) (Auto) 20% (24-48) Monocytes (%) (Auto) 5% (0-9) Eosinophils (%) (Auto) 2% (0-3) Basophils (%) (Auto) 1% (0-3) Neutrophils # (Auto) 6.5x10^3uL (1.8-7.7) Lymphocytes # (Auto) 1.8x10^3/uL (1.0-4.8) Monocytes # (Auto) 0.5x10^3/uL (0.0-1.1) Eosinophils # (Auto) 0.2x10^3/uL (0.0-0.7) Basophils # (Auto) 0.1x10^3/uL (0.0-0.2) Sodium Level 145mmol/L (136-145) Potassium Level 4.1mmol/L (3.5-5.1) Chloride Level 106mmol/L (98-107) Carbon Dioxide Level 31mmol/L (21-32) Anion Gap 8 (6-14) Blood Urea Nitrogen 11mg/dL (8-26) Creatinine 0.7mg/dL (0.7-1.3) Estimated GFR (Cockcroft-Gault) 117.1 Glucose Level 120mg/dL (70-99) Calcium Level 8.8mg/dL (8.5-10.1) Microbiology 07/17/16 Blood Culture - Preliminary, Resulted NO GROWTH AFTER 4 DAYS 07/09/16 Urine Culture - Final, Complete 07/09/16 Urine Culture Result 1 (EMILI) - Final, Complete 07/09/16 Antimicrobic Susceptibility - Final, Complete 07/14/16 Anaerobic/Aerobic Culture - Final, Complete 07/14/16 Anaerobic Culture Result 1 (EMILI) - Final, Complete 07/14/16 Aerobic Culture - Final, Complete 07/14/16 Aerobic Culture Result 1 (EMILI) - Final, Complete 07/14/16 Antimicrobic Susceptibility - Final, Complete Medications Current Medications Sodium Chloride (Iv Sodium Chloride 0.9% 1000ml Bag) 1,000 ml @ 1,000 mls/hr Q1H IV Last administered on 07/09/16 19:34; Start 07/09/16 at 19:18; Stop at 20:17; Status DC Hydromorphone HCl (Dilaudid) 2 mg 1X ONCE IV ; Start 07/09/16 at 19:30; Stop at 19:30; Status DC Ondansetron HCl (Zofran) 4 mg 1X ONCE IV Last administered on 07/09/16 19:33 ; Start 07/09/16 at 19:30; Stop 07/09/16 at 19:31; Status DC Hydromorphone HCl (Dilaudid) 1 mg 1X ONCE IV Last administered on 07/09/16 19 :33; Start 07/09/16 at 19:30; Stop 07/09/16 at 19:31; Status DC Ondansetron HCl (Zofran) 4 mg PRN Q8HRS PRN IV NAUSEA/VOMITING; Start 07/09/16 at 20:30; Stop 07/09/16 at 21:00; Status DC Morphine Sulfate 4 mg 4 mg PRN Q2HR PRN IV PAIN Last administered on 07/10/16 06:36; Start 07/09/16 at 20:30; Stop 07/10/16 at 13:00; Status DC Sodium Chloride (Iv Sodium Chloride 0.9% 1000ml Bag) 1,000 ml @ 150 mls/hr Q6H40M IV Last administered on 07/09/16 20:41; Start 07/09/16 at 20:24; Stop 07/10/16 at 15:29; Status DC Acetaminophen (Tylenol) 650 mg PRN Q4HRS PRN PO FEVER; Start 07/09/16 at 20:30 ; Stop 07/09/16 at 21:00; Status DC Acetaminophen (Tylenol) 650 mg PRN Q6HRS PRN PO FEVER; Start 07/09/16 at 21:00 ; Stop 07/10/16 at 15:28; Status DC Ondansetron HCl 4 mg 4 mg PRN Q6HRS PRN IV NAUSEA/VOMITING Last administered on 07/21/16 08:36; Start 07/09/16 at 21:00 Sodium Chloride (Iv Sodium Chloride 0.9% 1000ml Bag) 1,000 ml @ 150 mls/hr Q6H40M IV Last administered on 07/13/16 17:59; Start 07/09/16 at 21:00; Stop 07/13/16 at 19:27; Status DC Insulin Aspart (Novolog) 0-9 UNITS TIDWMEALS SQ Last administered on 07/19/16 16:20; Start 07/10/16 at 08:00 Dextrose 12.5 gm 12.5 gm PRN Q15MIN PRN IV SEE COMMENTS; Start 07/09/16 at 21: 00 Levofloxacin/ Dextrose (LEVAQUIN 500mg PREMIX) 100 ml @ 100 mls/hr Q24H IV Last administered on 07/12/16 02:49; Start 07/09/16 at 22:00; Stop 07/12/16 at 10:37; Status DC Guaifenesin (Mucinex) 600 mg BID PO Last administered on 07/21/16 08:30; Start 07/09/16 at 21:00 Albuterol Sulfate 2.5 mg 2.5 mg PRN Q4HRS PRN NEB SHORTNESS OF BREATH; Start at 21:00 Sodium Chloride (Iv Sodium Chloride 0.9% 1000ml Bag) 1,000 ml @ 0 mls/hr 1X ONCE IV Last administered on 07/10/16 10:27; Start 07/10/16 at 10:30; Stop at 10:31; Status DC Alprazolam (Xanax) 0.5 mg PRN Q8HRS PRN PO ANXIETY / AGITATION Last administered on 07/21/16 08:42; Start 07/10/16 at 13:00 Acetaminophen/ Hydrocodone Bitart (Lortab 5/325) 1 tab PRN Q6HRS PRN PO MODERATE - SEVERE PAIN Last administered on 07/20/16 20:43; Start 07/10/16 at 13:00 Acetaminophen (Tylenol) 650 mg PRN Q6HRS PRN PO MILD PAIN / TEMP Last administered on 07/14/16 00:08; Start 07/10/16 at 13:00 Heparin Sodium (Porcine) 5000 unit 5,000 unit Q8HRS SQ Last administered on 14:02; Start 07/10/16 at 14:00; Stop 07/11/16 at 22:55; Status DC Magnesium Sulfate/ Dextrose (Magnesium Sulfate PREMIX 2GM) 50 ml @ 25 mls/hr PRN DAILY PRN IV for Mag < 1.7 on am labs; Start 07/10/16 at 14:00 Diphenhydramine HCl (Benadryl) 25 mg PRN Q6HRS PRN IVP ITCHING Last administered on 07/13/16 01:52; Start 07/11/16 at 01:30 Lorazepam 2 mg 2 mg PRN Q4HRS PRN IV ANXIETY / AGITATION Last administered on 10:19; Start 07/11/16 at 01:30 Albumin Human (Albuminar) 100 ml @ 100 mls/hr TID IV Last administered on 07/13 13:56; Start 07/11/16 at 14:00; Stop 07/13/16 at 09:59; Status DC Insulin Aspart (Novolog) 10 units TIDAC SQ Last administered on 07/12/16 08:46 ; Start 07/11/16 at 12:30; Stop 07/12/16 at 09:17; Status DC Insulin Detemir 25 units 25 units QHS SQ Last administered on 07/12/16 01:48; Start 07/11/16 at 21:00; Stop 07/12/16 at 09:17; Status DC Heparin Sodium/ Dextrose 500 ml @ 0 mls/hr CONT PRN IV SEE I/O RECORD Last administered on 07/13/16 12:12; Start 07/11/16 at 23:00; Stop 07/13/16 at 12:32 ; Status DC Heparin Sodium (Porcine) 3,800 unit PRN Q6HRS PRN IV FOR UFH LEVEL LESS THAN 0.2 Last administered on 07/12/16 19:37; Start 07/11/16 at 23:00; Stop at 12:32; Status DC Heparin Sodium (Porcine) 1,900 unit PRN Q6HRS PRN IV FOR UFH LEVEL 0.2 - 0.29 Last administered on 07/13/16 02:33; Start 07/11/16 at 23:00; Stop 07/13/16 at 12:32; Status DC Warfarin Sodium (Coumadin Per Pharmacy) 1 each PRN DAILY PRN MC PER PROTOCOL Last administered on 07/17/16 13:43; Start 07/11/16 at 23:00; Stop 07/19/16 at 12:42; Status DC Warfarin Sodium (Coumadin) 5 mg 1X ONCE PO Last administered on 07/12/16 01: 45; Start 07/12/16 at 00:15; Stop 07/12/16 at 00:16; Status DC Info (Anti-Coagulation Monitoring By Pharmacy) 1 each PRN DAILY PRN MC SEE COMMENTS Last administered on 07/16/16 14:36; Start 07/11/16 at 23:45 Heparin Sodium (Porcine) 10,000 unit 1X ONCE IV Last administered on 01:48; Start 07/12/16 at 01:15; Stop 07/12/16 at 01:16; Status DC Insulin Aspart (Novolog) 12 units TIDAC SQ Last administered on 07/13/16 12:08 ; Start 07/12/16 at 11:30; Stop 07/13/16 at 12:32; Status DC Insulin Detemir (Levemir) 30 units QHS SQ Last administered on 07/12/16 21:07 ; Start 07/12/16 at 21:00; Stop 07/13/16 at 12:32; Status DC Tramadol HCl (Ultram) 50 mg PRN Q6HRS PRN PO PAIN; Start 07/12/16 at 10:15 Tramadol HCl (Ultram) 50 mg 1X ONCE PO Last administered on 07/12/16 14:32; Start 07/12/16 at 10:15; Stop 07/12/16 at 10:29; Status DC Methylprednisolone Acetate (Depo-Medrol 40mg Vial) 40 mg 1X ONCE IM ; Start at 10:30; Stop 07/12/16 at 10:31; Status DC Bupivacaine HCl (Sensorcaine-Mpf 0.25%) 10 ml 1X ONCE IJ ; Start 07/12/16 at 10 :30; Stop 07/12/16 at 10:31; Status DC Hydromorphone HCl 1 mg 1 mg 1X ONCE IV Last administered on 07/12/16 10:55; Start 07/12/16 at 10:30; Stop 07/12/16 at 10:46; Status DC Cefazolin Sodium 2 gm/Sodium Chloride 50 ml @ 100 mls/hr Q8HRS IV ; Start 07/12 at 11:00; Status Cancel Cefazolin Sodium/ Sodium Chloride (Ancef/Iv Sodium Chloride 0.9% 50ml) 50 ml @ 100 mls/hr Q8HRS IV Last administered on 07/21/16 05:43; Start 07/12/16 at 11: 00 Warfarin Sodium (Coumadin) 6 mg 1X WARF ONCE PO Last administered on 17:58; Start 07/12/16 at 16:00; Stop 07/12/16 at 16:01; Status DC Hydromorphone HCl (Dilaudid) 1 mg PRN Q4HRS PRN IVP PAIN Last administered on 22:25; Start 07/12/16 at 15:30 Polyethylene Glycol (miraLAX PACKET) 17 gm BID PO Last administered on 08:07; Start 07/12/16 at 21:00 Docusate Sodium (Colace) 100 mg PRN DAILY PRN PO CONSTIPATION; Start 07/12/16 at 15:30 Docusate Sodium (Colace) 100 mg DAILY PO Last administered on 07/15/16 08:07; Start 07/13/16 at 09:00 Magnesium Hydroxide (Milk Of Magnesia) 2,400 mg PRN DAILY PRN PO CONSTIPATION; Start 07/12/16 at 15:30 Gadobutrol (Gadavist) 7 mmol 1X ONCE IV Last administered on 07/13/16 10:45; Start 07/13/16 at 10:45; Stop 07/13/16 at 10:51; Status DC Gadobutrol (Gadavist) 7 mmol 1X ONCE IV Last administered on 07/13/16 10:45; Start 07/13/16 at 10:45; Stop 07/13/16 at 10:51; Status DC Warfarin Sodium (Coumadin) 10 mg 1X WARF ONCE PO Last administered on 17:56; Start 07/13/16 at 16:00; Stop 07/13/16 at 16:01; Status DC Enoxaparin Sodium (Lovenox Per Pharmacy Treatment Dosing) 1 each PRN DAILY PRN MC SEE COMMENTS; Start 07/13/16 at 12:30 Insulin Aspart (Novolog) 15 units TIDAC SQ Last administered on 07/20/16 17:33 ; Start 07/13/16 at 16:30 Insulin Detemir (Levemir) 40 units QHS SQ Last administered on 07/20/16 20:49 ; Start 07/13/16 at 21:00 Enoxaparin Sodium (Lovenox 150mg Syringe) 140 mg BID SQ Last administered on 20:42; Start 07/13/16 at 21:00 Warfarin Sodium (Coumadin) 15 mg 1X WARF ONCE PO ; Start 07/14/16 at 16:00; Stop 07/14/16 at 16:01; Status DC Ondansetron HCl (Zofran) 4 mg PRN Q6HRS PRN IV Nausea; Start 07/14/16 at 13:45 ; Stop 07/14/16 at 20:00; Status DC Fentanyl Citrate (Fentanyl 2ml Vial) 25 mcg PRN Q5MIN PRN IV MILD PAIN; Start 07/14/16 at 13:45; Stop 07/14/16 at 20:00; Status DC Fentanyl Citrate (Fentanyl 2ml Vial) 50 mcg PRN Q5MIN PRN IV MODERATE PAIN Last administered on 07/14/16t 18:15; Start 07/14/16 at 13:45; Stop 07/15/16 at 20:00; Status DC Morphine Sulfate 1 mg 1 mg PRN Q10MIN PRN IV SEVERE PAIN; Start 07/14/16 at 13: 45; Stop 07/14/16 at 20:00; Status DC Lactated Ringer's (Iv Lactated Ringers) 1,000 ml @ 30 mls/hr Q24H IV ; Start at 13:42; Stop 07/14/16 at 19:44; Status DC Lidocaine HCl 2 ml 1X PRN PRN ID IV START; Start 07/14/16 at 13:45; Stop at 20:00; Status DC Hydromorphone HCl (Dilaudid) 0.5 mg PRN Q10MIN PRN IV SEV PAIN,Second choice; Start 07/14/16 at 13:45; Stop 07/14/16 at 18:00; Status DC Prochlorperazine Edisylate (Compazine) 5 mg PACU PRN PRN IV NAUSEA Last administered on 07/14/16t 17:55; Start 07/14/16 at 13:45; Stop 07/14/16 at 20:00 ; Status DC Bupivacaine HCl/ Epinephrine Bitart 50 ml 50 ml STK-MED ONCE .ROUTE ; Start at 15:20; Stop 07/14/16 at 15:21; Status DC Propofol (Diprivan) 20 ml @ As Directed STK-MED ONCE IV ; Start 07/14/16 at 15: 26; Stop 07/14/16 at 15:27; Status DC Lidocaine HCl 100 mg STK-MED ONCE .ROUTE ; Start 07/14/16 at 15:26; Stop at 15:27; Status DC Fentanyl Citrate (Fentanyl 2ml Vial) 100 mcg STK-MED ONCE .ROUTE ; Start at 15:27; Stop 07/14/16 at 15:28; Status DC Rocuronium [place] (Zemuron) 50 mg STK-MED ONCE .ROUTE ; Start 07/14/16 at 15:27 ; Stop 07/14/16 at 15:28; Status DC Dexamethasone Sodium Phosphate (Decadron) 20 mg STK-MED ONCE .ROUTE ; Start at 16:34; Stop 07/14/16 at 16:35; Status DC Desflurane (Suprane) 30 ml STK-MED ONCE IH ; Start 07/14/16 at 16:35; Stop 07/14 at 16:36; Status DC Ondansetron HCl (Zofran) 4 mg STK-MED ONCE .ROUTE ; Start 07/14/16 at 16:46; Stop 07/14/16 at 16:47; Status DC Glycopyrrolate (Robinul) 1 mg STK-MED ONCE .ROUTE ; Start 07/14/16 at 16:46; Stop 07/14/16 at 16:47; Status DC Neostigmine Methylsulfate 5 mg STK-MED ONCE .ROUTE ; Start 07/14/16 at 16:46; Stop 07/14/16 at 16:47; Status DC Fentanyl Citrate (Fentanyl 2ml Vial) 100 mcg STK-MED ONCE .ROUTE ; Start at 16:57; Stop 07/14/16 at 16:58; Status DC Insulin Aspart 10 units 10 units 1X ONCE SQ Last administered on 07/15/16 08: 26; Start 07/15/16 at 08:30; Stop 07/15/16 at 08:31; Status DC Cefazolin Sodium/ Dextrose (Ancef 2gm Premix) 50 ml @ 100 mls/hr 1X PREOP PRN IV PER PROTOCOL Last administered on 07/16/16 05:56; Start 07/16/16 at 10:30; Stop 07/16/16 at 18:00; Status DC Insulin Aspart (Novolog) 15 units 1X ONCE SQ Last administered on 07/15/16 12 :25; Start 07/15/16 at 12:15; Stop 07/15/16 at 12:16; Status DC Warfarin Sodium (Coumadin - No Dose Today) 1 each 1X WARF ONCE MC Last administered on 07/15/16t 16:00; Start 07/15/16 at 16:00; Stop 07/15/16 at 16:01 ; Status DC Rocuronium [place] (Zemuron) 50 mg STK-MED ONCE .ROUTE ; Start 07/16/16 at 09:56 ; Stop 07/16/16 at 09:57; Status DC Dexamethasone Sodium Phosphate (Decadron) 20 mg STK-MED ONCE .ROUTE ; Start at 09:58; Stop 07/16/16 at 09:59; Status DC Ondansetron HCl 4 mg 4 mg STK-MED ONCE .ROUTE ; Start 07/16/16 at 09:58; Stop at 09:59; Status DC Propofol (Diprivan) 20 ml @ As Directed STK-MED ONCE IV ; Start 07/16/16 at 09: 58; Stop 07/16/16 at 09:59; Status DC Lidocaine HCl 100 mg STK-MED ONCE .ROUTE ; Start 07/16/16 at 09:58; Stop at 09:59; Status DC Fentanyl Citrate (Fentanyl 5ml Vial) 250 mcg STK-MED ONCE .ROUTE ; Start at 09:58; Stop 07/16/16 at 09:59; Status DC Midazolam HCl (Versed) 2 mg STK-MED ONCE .ROUTE ; Start 07/16/16 at 09:58; Stop 07/16/16 at 09:59; Status DC Famotidine (Pepcid) 20 mg STK-MED ONCE .ROUTE ; Start 07/16/16 at 09:58; Stop at 09:59; Status DC Succinylcholine Chloride (Anectine) 200 mg STK-MED ONCE .ROUTE ; Start 07/16/16 at 10:10; Stop 07/16/16 at 10:11; Status DC Succinylcholine Chloride 200 mg 200 mg STK-MED ONCE .ROUTE ; Start 07/16/16 at 10:26; Stop 07/16/16 at 10:27; Status DC Acetaminophen (Ofirmev) 100 ml @ As Directed STK-MED ONCE IV ; Start 07/16/16 at 11:49; Stop 07/16/16 at 11:50; Status DC Glycopyrrolate (Robinul) 1 mg STK-MED ONCE .ROUTE ; Start 07/16/16 at 11:55; Stop 07/16/16 at 11:56; Status DC Neostigmine Methylsulfate 5 mg STK-MED ONCE .ROUTE ; Start 07/16/16 at 11:55; Stop 07/16/16 at 11:56; Status DC Ondansetron HCl (Zofran) 4 mg PRN Q6HRS PRN IV Nausea; Start 07/16/16 at 12:30 ; Stop 07/17/16 at 12:29; Status DC Fentanyl Citrate (Fentanyl 2ml Vial) 25 mcg PRN Q5MIN PRN IV MILD PAIN; Start 07/16/16 at 12:30; Stop 07/17/16 at 12:29; Status DC Fentanyl Citrate (Fentanyl 2ml Vial) 50 mcg PRN Q5MIN PRN IV MODERATE PAIN; Start 07/16/16 at 12:30; Stop 07/17/16 at 12:29; Status DC Morphine Sulfate 1 mg 1 mg PRN Q10MIN PRN IV SEVERE PAIN; Start 07/16/16 at 12: 30; Stop 07/17/16 at 12:29; Status DC Lactated Ringer's (Iv Lactated Ringers) 1,000 ml @ 30 mls/hr Q24H IV ; Start at 12:28; Stop 07/17/16 at 00:27; Status DC Lidocaine HCl 2 ml 1X PRN PRN ID IV START; Start 07/16/16 at 12:30; Stop at 12:29; Status DC Hydromorphone HCl (Dilaudid) 0.5 mg PRN Q10MIN PRN IV SEV PAIN,Second choice Last administered on 07/16/16t 14:38; Start 07/16/16 at 12:30; Stop 07/17/16 at 12:29; Status DC Prochlorperazine Edisylate (Compazine) 5 mg PACU PRN PRN IV NAUSEA; Start 07/16 at 12:30; Stop 07/17/16 at 12:29; Status DC Warfarin Sodium (Coumadin) 10 mg 1X WARF ONCE PO Last administered on t 15:58; Start 07/16/16 at 16:00; Stop 07/16/16 at 16:01; Status DC Ondansetron HCl (Zofran) 4 mg PRN Q6HRS PRN IV Nausea Last administered on 07/19 14:09; Start 07/19/16 at 07:00; Stop 07/20/16 at 06:59; Status DC Fentanyl Citrate (Fentanyl 2ml Vial) 25 mcg PRN Q5MIN PRN IV MILD PAIN; Start 07/19/16 at 07:00; Stop 07/20/16 at 06:59; Status DC Fentanyl Citrate (Fentanyl 2ml Vial) 50 mcg PRN Q5MIN PRN IV MODERATE PAIN; Start 07/19/16 at 07:00; Stop 07/20/16 at 06:59; Status DC Morphine Sulfate 1 mg 1 mg PRN Q10MIN PRN IV SEVERE PAIN; Start 07/19/16 at 07: 00; Stop 07/20/16 at 06:59; Status DC Lactated Ringer's (Iv Lactated Ringers) 1,000 ml @ 0 mls/hr Q0M IV Last administered on 07/19/16 10:53; Start 07/19/16 at 07:00; Stop 07/19/16 at 18:59 ; Status DC Lidocaine HCl 2 ml 1X PRN PRN ID IV START; Start 07/19/16 at 07:00; Stop at 06:59; Status DC Hydromorphone HCl (Dilaudid) 0.5 mg PRN Q10MIN PRN IV SEVERE PAIN, Second choice; Start 07/19/16 at 07:00; Stop 07/20/16 at 06:59; Status DC Prochlorperazine Edisylate (Compazine) 5 mg PACU PRN PRN IV NAUSEA; Start 07/19 at 07:00; Stop 07/20/16 at 06:59; Status DC Sodium Chloride (Normal Saline Flush) 10 ml QSHIFT PRN IV AFTER MEDS AND BLOOD DRAWS; Start 07/17/16 at 12:00; Stop 07/17/16 at 12:06; Status DC Lidocaine HCl (Xylocaine 2% Topical 5gm Tube) 1 silvia 1X ONCE TP ; Start at 12:00; Stop 07/17/16 at 12:06; Status DC Lidocaine HCl (Viscous Lidocaine) 15 ml 1X ONCE MM ; Start 07/17/16 at 12:00; Stop 07/17/16 at 12:06; Status DC Benzocaine (Hurricaine One) 1 spray 1X ONCE MM ; Start 07/17/16 at 12:00; Stop 07/17/16 at 12:06; Status DC Bupivacaine HCl/ Epinephrine Bitart (Sensorcaine-Epi 0.25%-1:370204 Mpf) 30 ml STK-MED ONCE .ROUTE ; Start 07/19/16 at 07:20; Stop 07/19/16 at 07:21; Status DC Sodium Chloride (Normal Saline Flush) 10 ml QSHIFT PRN IV AFTER MEDS AND BLOOD DRAWS; Start 07/19/16 at 10:15 Lidocaine HCl (Xylocaine 2% Topical 5gm Tube) 1 silvia 1X ONCE TP ; Start at 10:15; Stop 07/19/16 at 10:16; Status DC Lidocaine HCl (Viscous Lidocaine) 15 ml 1X ONCE MM ; Start 07/19/16 at 10:15; Stop 07/19/16 at 10:16; Status DC Benzocaine 1 spray 1 spray 1X ONCE MM ; Start 07/19/16 at 10:15; Stop 07/19/16 at 10:16; Status DC Propofol (Diprivan) 20 ml @ As Directed STK-MED ONCE IV ; Start 07/19/16 at 10: 37; Stop 07/19/16 at 10:38; Status DC Lidocaine HCl 100 mg STK-MED ONCE .ROUTE ; Start 07/19/16 at 10:37; Stop at 10:38; Status DC Ondansetron HCl (Zofran) 4 mg STK-MED ONCE .ROUTE ; Start 07/19/16 at 10:37; Stop 07/19/16 at 10:38; Status DC Dexamethasone Sodium Phosphate (Decadron) 20 mg STK-MED ONCE .ROUTE ; Start at 10:37; Stop 07/19/16 at 10:38; Status DC Fentanyl Citrate (Fentanyl 2ml Vial) 100 mcg STK-MED ONCE .ROUTE ; Start at 10:37; Stop 07/19/16 at 10:38; Status DC Rocuronium [place] (Zemuron) 50 mg STK-MED ONCE .ROUTE ; Start 07/19/16 at 10:54 ; Stop 07/19/16 at 10:55; Status DC Ephedrine Sulfate 50 mg STK-MED ONCE IV ; Start 07/19/16 at 11:05; Stop at 11:06; Status DC Phenylephrine HCl 1 mg STK-MED ONCE IV ; Start 07/19/16 at 11:07; Stop 07/19/16 at 11:08; Status DC Sevoflurane 30 ml 30 ml STK-MED ONCE IH ; Start 07/19/16 at 11:14; Stop at 11:15; Status DC Propofol (Diprivan) 20 ml @ As Directed STK-MED ONCE IV ; Start 07/19/16 at 12: 15; Stop 07/19/16 at 12:16; Status DC Neostigmine Methylsulfate 5 mg STK-MED ONCE .ROUTE ; Start 07/19/16 at 12:16; Stop 07/19/16 at 12:17; Status DC Glycopyrrolate (Robinul) 1 mg STK-MED ONCE .ROUTE ; Start 07/19/16 at 12:16; Stop 07/19/16 at 12:17; Status DC Phenylephrine HCl 1 mg 1 mg STK-MED ONCE IV ; Start 07/19/16 at 12:25; Stop at 12:26; Status DC Cefazolin Sodium/ Dextrose (Ancef 2gm Premix) 50 ml @ 100 mls/hr 1X PREOP PRN IV FOR SURGERY; Start 07/22/16 at 06:00; Stop 07/22/16 at 18:00 Ondansetron HCl (Zofran) 4 mg PRN Q6HRS PRN IV Nausea; Start 07/22/16 at 07:00; Stop 07/23/16 at 06:59 Fentanyl Citrate (Fentanyl 2ml Vial) 25 mcg PRN Q5MIN PRN IV MILD PAIN; Start 07/22/16 at 07:00; Stop 07/23/16 at 06:59 Fentanyl Citrate (Fentanyl 2ml Vial) 50 mcg PRN Q5MIN PRN IV MODERATE PAIN; Start 07/22/16 at 07:00; Stop 07/23/16 at 06:59 Morphine Sulfate 1 mg 1 mg PRN Q10MIN PRN IV SEVERE PAIN; Start 07/22/16 at 07: 00; Stop 07/23/16 at 06:59 Lactated Ringer's (Iv Lactated Ringers) 1,000 ml @ 0 mls/hr Q0M IV ; Start 07/22 at 07:00; Stop 07/22/16 at 18:59 Lidocaine HCl 2 ml 1X PRN PRN ID IV START; Start 07/22/16 at 07:00; Stop at 06:59 Hydromorphone HCl (Dilaudid) 0.5 mg PRN Q10MIN PRN IV SEVERE PAIN, Second choice; Start 07/22/16 at 07:00; Stop 07/23/16 at 06:59 Prochlorperazine Edisylate (Compazine) 5 mg PACU PRN PRN IV NAUSEA; Start at 07:00; Stop 07/23/16 at 06:59 Active Scripts Active Phenergan (Promethazine HCl) 25 Mg Supp.rect 25 Mg RC Q8HRS PRN Zofran Odt (Ondansetron) 4 Mg Tab.rapdis 1 Tab SL Q8HRS PRN Vitals/I & O Vital Sign - Last 24 Hours 07/20/16 07/20/16 07/20/16 07/20/16 10:49 12:32 14:52 19:00 Temp 98.3 98.3 98.3 98.3 98.3 98.3 Pulse 89 89 92 Resp 19 20 19 18 B/P 147/74 146/64 139/76 Pulse Ox 93 93 93 94 O2 Delivery Room Air Room Air Room Air Room Air 07/20/16 07/20/16 07/20/16 07/20/16 20:00 20:43 21:43 22:47 Temp 98.7 98.7 Pulse 86 Resp 18 18 19 B/P 148/73 Pulse Ox 94 96 96 O2 Delivery Room Air Room Air Room Air Room Air O2 Flow Rate 2.0 07/21/16 07/21/16 02:36 07:00 Temp 98.7 98.5 98.7 98.5 Pulse 83 95 Resp 18 20 B/P 149/74 126/81 Pulse Ox 93 93 O2 Delivery Room Air Room Air Intake and Output 07/20/16 07/20/16 07/21/16 15:00 23:00 07:00 Intake Total 490 ml 950 ml 1300 ml Output Total 600 ml Balance 490 ml 950 ml 700 ml VASIREDDI,MANOHAR R MD Jul 21, 2016 10:18
--- NOTE | 2016-07-21 11:13 | PDOC ---
Infectious Disease Note Subjective Subjective Doing. S/p PICC Mobility and pain in shoulder improving Continues to be afebrile Pain controlled Eating well, denies any diarrhea at this time ROS ROS GEN: Denies fevers, chills, sweats HEENT: Denies blurred vision, sore throat CV: Denies chest pain RESP: Denies shortness of air, cough GI: Denies n/v/d NEURO: Denies confusion, dizziness MSK: Denies weakness, joint pain/swelling Vital Sign Vital Signs Vital Signs Date Time Temp Pulse Resp B/P Pulse Ox O2 Delivery O2 Flow Rate FiO2 07/21/16 07:00 98.5 95 20 126/81 93 Room Air 98.5 07/20/16 20:43 2.0 Physical Exam PHYSICAL EXAM GENERAL: NAD, Alert HEENT: PERRL, OC/OP - clear NECK: Supple, no JVD, no LN LUNGS: Clear HEART: S1S2, no gallop, no murmur ABD: Soft, NT, no organomegaly, no rebound, obese EXT: No edema, no cyanosis, 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, 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 x 3, no focal neurologic deficit SKIN: No rash IV: PICC -clean Labs Lab Laboratory Tests Test 07/20/16 16:53 07/20/16 20:21 07/21/16 07:34 07/21/16 08:35 Glucose (Fingerstick) 129mg/dL (70-99) 213mg/dL (70-99) 111mg/dL (70-99) White Blood Count 9.0x10^3/uL (4.0-11.0) Red Blood Count 3.89x10^6/uL (4.30-5.70) Hemoglobin 10.7g/dL (13.0-17.5) Hematocrit 33.7% (39.0-53.0) Mean Corpuscular Volume 86fL (79-100) Mean Corpuscular Hemoglobin 28pg (25-35) Mean Corpuscular Hemoglobin Concent 32g/dL (31-37) Red Cell Distribution Width 16.3% (11.5-14.5) Platelet Count 396x10^3/uL (140-400) Neutrophils (%) (Auto) 72% (31-73) Lymphocytes (%) (Auto) 20% (24-48) Monocytes (%) (Auto) 5% (0-9) Eosinophils (%) (Auto) 2% (0-3) Basophils (%) (Auto) 1% (0-3) Neutrophils # (Auto) 6.5x10^3uL (1.8-7.7) Lymphocytes # (Auto) 1.8x10^3/uL (1.0-4.8) Monocytes # (Auto) 0.5x10^3/uL (0.0-1.1) Eosinophils # (Auto) 0.2x10^3/uL (0.0-0.7) Basophils # (Auto) 0.1x10^3/uL (0.0-0.2) Sodium Level 145mmol/L (136-145) Potassium Level 4.1mmol/L (3.5-5.1) Chloride Level 106mmol/L (98-107) Carbon Dioxide Level 31mmol/L (21-32) Anion Gap 8 (6-14) Blood Urea Nitrogen 11mg/dL (8-26) Creatinine 0.7mg/dL (0.7-1.3) Estimated GFR (Cockcroft-Gault) 117.1 Glucose Level 120mg/dL (70-99) Calcium Level 8.8mg/dL (8.5-10.1) Objective Assessment Fever - resolved Staph sepsis - 07/11. Repeat cx 07/17 NGTD Staph aureus in urine Shoulder pain and warmth - improving + MSSA s/p I and D ? Septic emboli in UE Leukocytosis - better DM Obesity Pulm nodule ? Incidental mass in abd Plan Plan of Care Continue Cefazolin Repeat BC from 07/17 NGTD. HARISH from 07/19 showed 60-65% EF with no evidence of endocarditis. D/w Dr. Singleton - Plan to return to OR for final closure D/w MELA JAIMES MD Jul 21, 2016 11:13
[2016-07-21] MEDS: ACETAMINOPHEN 325 MG TABLET. PO PRN (11:29)
--- NOTE | 2016-07-21 12:06 | RAD ---
Indication assess PICC line placement. A single view of the chest was obtained and is compared to an examination 07/09/2016. Heart size is unchanged. An acute parenchymal infiltrate is not seen. Nodule seen previously in the left lung is not optimally visualized on today's study. A right PICC line is noted. The tip is appropriately positioned in the distal SVC. IMPRESSION: No acute finding apparent in the chest. Appropriately positioned right PICC line
[2016-07-21] MEDS: HYDROCODONE/APAP 5/325MG TABLET. PO PRN ×2 (14:00→21:50)
[2016-07-21 15:00] VITALS: BP 146/67
[2016-07-21 19:00] VITALS: BP 139/69
[2016-07-21] MEDS: LORAZEPAM 2 MG/ML VIAL IV PRN (21:49)
[2016-07-21] MEDS: INSULIN DETEMIR 300 UNITS/3 ML INSULN.PEN. SQ SCH (21:54)
[2016-07-21 23:00] VITALS: BP 167/74
[2016-07-22] VITALS (14 sets, daily range): BP systolic 109–189; BP diastolic 56–91
[2016-07-22] MEDS: NORMAL SALINE IV SCH ×3 (05:28→21:38)
[2016-07-22] MEDS: CEFAZOLIN SODIUM IV SCH ×3 (05:28→21:38)
[2016-07-22 05:47] LABS: BASO # 0.4 x10^3/uL (0.0-0.2); BASO % 5 % (0-3); EOS % 2 % (0-3); HEMATOCRIT 29.9 % (39.0-53.0); HEMOGLOBIN 9.9 g/dL (13.0-17.5); LYMPH # 2.1 x10^3/uL (1.0-4.8); LYMPH % 30 % (24-48); MEAN CORPUSCULAR HEMOGLOBIN 28 pg (25-35); MEAN CORPUSCULAR HGB CONC 33 g/dL (31-37); MEAN CORPUSCULAR VOLUME 84 fL (79-100); MONO % 5 % (0-9); NEUT % 57 % (31-73); PLATELET COUNT 333 x10^3/uL (140-400); RED BLOOD COUNT 3.55 x10^6/uL (4.30-5.70); RED CELL DISTRIBUTION WIDTH 15.9 % (11.5-14.5)
[2016-07-22] MEDS ORDERED: CEFAZOLIN 2GM PREMIX 50 ML IV PRN (06:00)
[2016-07-22 06:09] LABS: CALCIUM 8.5 mg/dL (8.5-10.1); CREATININE 0.6 mg/dL (0.7-1.3); GFR 139.9; POTASSIUM 4.1 mmol/L (3.5-5.1)
[2016-07-22] MEDS ORDERED: LIDOCAINE 1% 1 ML SYRINGE. ID PRN (07:00)
[2016-07-22] MEDS ORDERED: PROCHLORPERAZINE 10 MG/2 ML VIAL. IV PRN (07:00)
[2016-07-22] MEDS ORDERED: HYDROMORPHONE 2 MG/ML VIAL. IV PRN (07:00)
[2016-07-22] MEDS ORDERED: FENTANYL PF 100 MCG/2 ML VIAL. IV PRN (07:00)
[2016-07-22] MEDS ORDERED: ONDANSETRON PF 4 MG/2 ML VIAL. IV PRN (07:00)
[2016-07-22] MEDS ORDERED: MORPHINE SULFATE 2 MG/ML DISP.SYRIN. IV PRN (07:00)
[2016-07-22] MEDS ORDERED: IV RINGERS,LACTATED 1000ML 1,000 ML IV SCH (07:00)
[2016-07-22] MEDS: INSULIN ASPART 300 UNITS/3 ML INSULN.PEN SQ SCH ×6 (07:30→17:17)
--- NOTE | 2016-07-22 07:45 | PDOC ---
PROGRESS NOTES Subjective Subjective Problems overnight: no acute issues. has received a picc line, feeling better. wanting to know when he can go back to work. has some nausea this am. Objective Vital Signs Vital Signs Date Time Temp Pulse Resp B/P Pulse Ox O2 Delivery O2 Flow Rate FiO2 07/22/16 03:13 98.1 93 20 143/71 97 Room Air 98.1 07/21/16 21:50 2.0 Physical Exam lue: no erythema. edema significantly reduced. dressing cdi. nvi distal extremity. Labs Laboratory Tests Test 07/20/16 07:59 07/20/16 10:20 07/20/16 16:53 07/20/16 20:21 Glucose (Fingerstick) 128mg/dL (70-99) 137mg/dL (70-99) 129mg/dL (70-99) 213mg/dL (70-99) Test 07/21/16 07:34 07/21/16 08:35 07/21/16 11:46 07/21/16 17:16 Glucose (Fingerstick) 111mg/dL (70-99) 166mg/dL (70-99) 171mg/dL (70-99) White Blood Count 9.0x10^3/uL (4.0-11.0) Red Blood Count 3.89x10^6/uL (4.30-5.70) Hemoglobin 10.7g/dL (13.0-17.5) Hematocrit 33.7% (39.0-53.0) Mean Corpuscular Volume 86fL (79-100) Mean Corpuscular Hemoglobin 28pg (25-35) Mean Corpuscular Hemoglobin Concent 32g/dL (31-37) Red Cell Distribution Width 16.3% (11.5-14.5) Platelet Count 396x10^3/uL (140-400) Neutrophils (%) (Auto) 72% (31-73) Lymphocytes (%) (Auto) 20% (24-48) Monocytes (%) (Auto) 5% (0-9) Eosinophils (%) (Auto) 2% (0-3) Basophils (%) (Auto) 1% (0-3) Neutrophils # (Auto) 6.5x10^3uL (1.8-7.7) Lymphocytes # (Auto) 1.8x10^3/uL (1.0-4.8) Monocytes # (Auto) 0.5x10^3/uL (0.0-1.1) Eosinophils # (Auto) 0.2x10^3/uL (0.0-0.7) Basophils # (Auto) 0.1x10^3/uL (0.0-0.2) Sodium Level 145mmol/L (136-145) Potassium Level 4.1mmol/L (3.5-5.1) Chloride Level 106mmol/L (98-107) Carbon Dioxide Level 31mmol/L (21-32) Anion Gap 8 (6-14) Blood Urea Nitrogen 11mg/dL (8-26) Creatinine 0.7mg/dL (0.7-1.3) Estimated GFR (Cockcroft-Gault) 117.1 Glucose Level 120mg/dL (70-99) Calcium Level 8.8mg/dL (8.5-10.1) Test 07/21/16 20:25 07/22/16 05:35 Glucose (Fingerstick) 216mg/dL (70-99) White Blood Count 7.0x10^3/uL (4.0-11.0) Red Blood Count 3.55x10^6/uL (4.30-5.70) Hemoglobin 9.9g/dL (13.0-17.5) Hematocrit 29.9% (39.0-53.0) Mean Corpuscular Volume 84fL (79-100) Mean Corpuscular Hemoglobin 28pg (25-35) Mean Corpuscular Hemoglobin Concent 33g/dL (31-37) Red Cell Distribution Width 15.9% (11.5-14.5) Platelet Count 333x10^3/uL (140-400) Neutrophils (%) (Auto) 57% (31-73) Lymphocytes (%) (Auto) 30% (24-48) Monocytes (%) (Auto) 5% (0-9) Eosinophils (%) (Auto) 2% (0-3) Basophils (%) (Auto) 5% (0-3) Neutrophils # (Auto) 4.0x10^3uL (1.8-7.7) Lymphocytes # (Auto) 2.1x10^3/uL (1.0-4.8) Monocytes # (Auto) 0.4x10^3/uL (0.0-1.1) Eosinophils # (Auto) 0.2x10^3/uL (0.0-0.7) Basophils # (Auto) 0.4x10^3/uL (0.0-0.2) Sodium Level 143mmol/L (136-145) Potassium Level 4.1mmol/L (3.5-5.1) Chloride Level 107mmol/L (98-107) Carbon Dioxide Level 32mmol/L (21-32) Anion Gap 4 (6-14) Blood Urea Nitrogen 9mg/dL (8-26) Creatinine 0.6mg/dL (0.7-1.3) Estimated GFR (Cockcroft-Gault) 139.9 Glucose Level 160mg/dL (70-99) Calcium Level 8.5mg/dL (8.5-10.1) Laboratory Tests Test 07/21/16 08:35 07/21/16 11:46 07/21/16 17:16 07/21/16 20:25 White Blood Count 9.0x10^3/uL (4.0-11.0) Red Blood Count 3.89x10^6/uL (4.30-5.70) Hemoglobin 10.7g/dL (13.0-17.5) Hematocrit 33.7% (39.0-53.0) Mean Corpuscular Volume 86fL (79-100) Mean Corpuscular Hemoglobin 28pg (25-35) Mean Corpuscular Hemoglobin Concent 32g/dL (31-37) Red Cell Distribution Width 16.3% (11.5-14.5) Platelet Count 396x10^3/uL (140-400) Neutrophils (%) (Auto) 72% (31-73) Lymphocytes (%) (Auto) 20% (24-48) Monocytes (%) (Auto) 5% (0-9) Eosinophils (%) (Auto) 2% (0-3) Basophils (%) (Auto) 1% (0-3) Neutrophils # (Auto) 6.5x10^3uL (1.8-7.7) Lymphocytes # (Auto) 1.8x10^3/uL (1.0-4.8) Monocytes # (Auto) 0.5x10^3/uL (0.0-1.1) Eosinophils # (Auto) 0.2x10^3/uL (0.0-0.7) Basophils # (Auto) 0.1x10^3/uL (0.0-0.2) Sodium Level 145mmol/L (136-145) Potassium Level 4.1mmol/L (3.5-5.1) Chloride Level 106mmol/L (98-107) Carbon Dioxide Level 31mmol/L (21-32) Anion Gap 8 (6-14) Blood Urea Nitrogen 11mg/dL (8-26) Creatinine 0.7mg/dL (0.7-1.3) Estimated GFR (Cockcroft-Gault) 117.1 Glucose Level 120mg/dL (70-99) Calcium Level 8.8mg/dL (8.5-10.1) Glucose (Fingerstick) 166mg/dL (70-99) 171mg/dL (70-99) 216mg/dL (70-99) Test 07/22/16 05:35 White Blood Count 7.0x10^3/uL (4.0-11.0) Red Blood Count 3.55x10^6/uL (4.30-5.70) Hemoglobin 9.9g/dL (13.0-17.5) Hematocrit 29.9% (39.0-53.0) Mean Corpuscular Volume 84fL (79-100) Mean Corpuscular Hemoglobin 28pg (25-35) Mean Corpuscular Hemoglobin Concent 33g/dL (31-37) Red Cell Distribution Width 15.9% (11.5-14.5) Platelet Count 333x10^3/uL (140-400) Neutrophils (%) (Auto) 57% (31-73) Lymphocytes (%) (Auto) 30% (24-48) Monocytes (%) (Auto) 5% (0-9) Eosinophils (%) (Auto) 2% (0-3) Basophils (%) (Auto) 5% (0-3) Neutrophils # (Auto) 4.0x10^3uL (1.8-7.7) Lymphocytes # (Auto) 2.1x10^3/uL (1.0-4.8) Monocytes # (Auto) 0.4x10^3/uL (0.0-1.1) Eosinophils # (Auto) 0.2x10^3/uL (0.0-0.7) Basophils # (Auto) 0.4x10^3/uL (0.0-0.2) Sodium Level 143mmol/L (136-145) Potassium Level 4.1mmol/L (3.5-5.1) Chloride Level 107mmol/L (98-107) Carbon Dioxide Level 32mmol/L (21-32) Anion Gap 4 (6-14) Blood Urea Nitrogen 9mg/dL (8-26) Creatinine 0.6mg/dL (0.7-1.3) Estimated GFR (Cockcroft-Gault) 139.9 Glucose Level 160mg/dL (70-99) Calcium Level 8.5mg/dL (8.5-10.1) Assessment Assessment s/p several I&D left shoulder. Problems: (1) Septic arthritis of acromioclavicular joint Plan Plan of Care Plan to take him to the OR Today and wash out the incision again. if it looks clean will attempt to close primarily. Once closed he will be ok for discharge from my standpoint. fu 7-10 days in my office for suture removal. Problem Qualifiers (1) Septic arthritis of acromioclavicular joint: Laterality: left Qualified Code: M00.812 - Arthritis due to other bacteria, left shoulder MONALISA PINTO MD Jul 22, 2016 07:44
[2016-07-22] MEDS: POLYETHYLENE GLYCOL 3350 17 GM PACKET. PO SCH ×2 (08:05→21:00)
[2016-07-22] MEDS: DOCUSATE SODIUM 100 MG CAPSULE PO SCH (08:05)
[2016-07-22] MEDS: ENOXAPARIN ** NOTE DOSE ** SYRINGE SQ SCH ×2 (08:05→21:38)
[2016-07-22] MEDS ORDERED: FENTANYL PF 100 MCG/2 ML VIAL. ONE (08:15)
[2016-07-22] MEDS ORDERED: ONDANSETRON PF 4 MG/2 ML VIAL. ONE (08:15)
[2016-07-22] MEDS ORDERED: PROPOFOL 20 ML IV ONE (08:15)
[2016-07-22] MEDS ORDERED: FAMOTIDINE 20 MG/2 ML VIAL ONE (08:15)
[2016-07-22] MEDS ORDERED: MIDAZOLAM HCL 2 MG/2 ML VIAL. ONE (08:15)
[2016-07-22] MEDS ORDERED: LIDOCAINE 2% 100 MG/5 ML DISP.SYRIN. ONE (08:16)
[2016-07-22] MEDS ORDERED: SEVOFLURANE 31 TO 60 MINUTES. IH ONE (08:16)
[2016-07-22] MEDS ORDERED: SEVOFLURANE 61 TO 120 MINUTES. IH ONE (08:16)
[2016-07-22] MEDS: ONDANSETRON PF 4 MG/2 ML VIAL. IV PRN (08:25)
[2016-07-22] MEDS ORDERED: ROCURONIUM 50 MG/5 ML VIAL. ONE (08:47)
[2016-07-22] MEDS ORDERED: SUCCINYLCHOLINE 200 MG/10 ML VIAL. ONE (08:48)
[2016-07-22] MEDS: GUAIFENESIN ER 600 MG TABLET.ER PO SCH ×2 (09:00→21:37)
--- NOTE | 2016-07-22 10:01 | PDOC ---
PROGRESS NOTES Chief Complaint Chief Complaint Shoulder pain Septic joint Bronchitis ASSESSMENT AND PLAN: 1. Septic L shoulder joint: s/p I&D in OR on 07/[address] Wallace. s /p Irrigation and debridement,today , Placed on wound wac, appreciate Orthopedics recommendations. 2. Sepsis: resolved. blood cultures with MSSA on 07/11 and 07/14. HARISH no vegetation, continue IV cefazolin, ID following. s/p PICC 3. Pain control: has IV morphine; 4. NELIDA: PoA, vasomotor. now resolved 5. Hyponatremia: POA. now resolved 6. DM2: poor control at home (HgbA1c 11), fair control here. on long- and short-acting insulin plus ISS 7. UTI: POA. culture with MSSA 8. Bronchitis: POA. essentially resolved. minor cough persisting 9. LLL lung nodule: OP F/U 10. UE DVT: currently on therapeutic bid Lovenox. change to oral once stable. 11. Hypoalbuminemia: severe, in BMI 38. 12. 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 14. HTN: On lisinopril and PRN hydralazine History of Present Illness History of Present Illness seen after surgery not feeling well headaches pain not controlled. Vitals Vitals Vital Signs Date Time Temp Pulse Resp B/P Pulse Ox O2 Delivery O2 Flow Rate FiO2 07/22/16 08:02 97.9 85 15 167/76 95 Room Air 97.9 07/21/16 21:50 2.0 Physical Exam General: Alert, Oriented X3, Cooperative, No acute distress Heart: Regular rate, Normal S1, Normal S2, No murmurs Lungs: Clear, Other (No wheezing) Abdomen: Soft, No tenderness Extremities: Other Skin: No rashes, No breakdown, Other (wound wac seen) Labs LABS Laboratory Tests Test 07/21/16 11:46 07/21/16 17:16 07/21/16 20:25 07/22/16 05:35 Glucose (Fingerstick) 166mg/dL (70-99) 171mg/dL (70-99) 216mg/dL (70-99) White Blood Count 7.0x10^3/uL (4.0-11.0) Red Blood Count 3.55x10^6/uL (4.30-5.70) Hemoglobin 9.9g/dL (13.0-17.5) Hematocrit 29.9% (39.0-53.0) Mean Corpuscular Volume 84fL (79-100) Mean Corpuscular Hemoglobin 28pg (25-35) Mean Corpuscular Hemoglobin Concent 33g/dL (31-37) Red Cell Distribution Width 15.9% (11.5-14.5) Platelet Count 333x10^3/uL (140-400) Neutrophils (%) (Auto) 57% (31-73) Lymphocytes (%) (Auto) 30% (24-48) Monocytes (%) (Auto) 5% (0-9) Eosinophils (%) (Auto) 2% (0-3) Basophils (%) (Auto) 5% (0-3) Neutrophils # (Auto) 4.0x10^3uL (1.8-7.7) Lymphocytes # (Auto) 2.1x10^3/uL (1.0-4.8) Monocytes # (Auto) 0.4x10^3/uL (0.0-1.1) Eosinophils # (Auto) 0.2x10^3/uL (0.0-0.7) Basophils # (Auto) 0.4x10^3/uL (0.0-0.2) Sodium Level 143mmol/L (136-145) Potassium Level 4.1mmol/L (3.5-5.1) Chloride Level 107mmol/L (98-107) Carbon Dioxide Level 32mmol/L (21-32) Anion Gap 4 (6-14) Blood Urea Nitrogen 9mg/dL (8-26) Creatinine 0.6mg/dL (0.7-1.3) Estimated GFR (Cockcroft-Gault) 139.9 Glucose Level 160mg/dL (70-99) Calcium Level 8.5mg/dL (8.5-10.1) Test 07/22/16 07:35 07/22/16 09:51 Glucose (Fingerstick) 124mg/dL (70-99) 100mg/dL (70-99) Assessment and Plan Assessmemt and Plan Problems Medical Problems: (1) Acute renal injury Status: Acute (2) Dehydration Status: Acute (3) Hyponatremia Status: Acute (4) Nausea & vomiting Status: Acute (5) Septic arthritis of acromioclavicular joint Status: Acute (6) Uncontrolled diabetes mellitus Status: Acute Problems: Comment Review of Relevant I have reviewed the following items madison (where applicable) has been applied. Labs Laboratory Tests Test 07/20/16 10:20 07/20/16 16:53 07/20/16 20:21 07/21/16 07:34 Glucose (Fingerstick) 137mg/dL (70-99) 129mg/dL (70-99) 213mg/dL (70-99) 111mg/dL (70-99) Test 07/21/16 08:35 07/21/16 11:46 07/21/16 17:16 07/21/16 20:25 White Blood Count 9.0x10^3/uL (4.0-11.0) Red Blood Count 3.89x10^6/uL (4.30-5.70) Hemoglobin 10.7g/dL (13.0-17.5) Hematocrit 33.7% (39.0-53.0) Mean Corpuscular Volume 86fL (79-100) Mean Corpuscular Hemoglobin 28pg (25-35) Mean Corpuscular Hemoglobin Concent 32g/dL (31-37) Red Cell Distribution Width 16.3% (11.5-14.5) Platelet Count 396x10^3/uL (140-400) Neutrophils (%) (Auto) 72% (31-73) Lymphocytes (%) (Auto) 20% (24-48) Monocytes (%) (Auto) 5% (0-9) Eosinophils (%) (Auto) 2% (0-3) Basophils (%) (Auto) 1% (0-3) Neutrophils # (Auto) 6.5x10^3uL (1.8-7.7) Lymphocytes # (Auto) 1.8x10^3/uL (1.0-4.8) Monocytes # (Auto) 0.5x10^3/uL (0.0-1.1) Eosinophils # (Auto) 0.2x10^3/uL (0.0-0.7) Basophils # (Auto) 0.1x10^3/uL (0.0-0.2) Sodium Level 145mmol/L (136-145) Potassium Level 4.1mmol/L (3.5-5.1) Chloride Level 106mmol/L (98-107) Carbon Dioxide Level 31mmol/L (21-32) Anion Gap 8 (6-14) Blood Urea Nitrogen 11mg/dL (8-26) Creatinine 0.7mg/dL (0.7-1.3) Estimated GFR (Cockcroft-Gault) 117.1 Glucose Level 120mg/dL (70-99) Calcium Level 8.8mg/dL (8.5-10.1) Glucose (Fingerstick) 166mg/dL (70-99) 171mg/dL (70-99) 216mg/dL (70-99) Test 07/22/16 05:35 07/22/16 07:35 07/22/16 09:51 White Blood Count 7.0x10^3/uL (4.0-11.0) Red Blood Count 3.55x10^6/uL (4.30-5.70) Hemoglobin 9.9g/dL (13.0-17.5) Hematocrit 29.9% (39.0-53.0) Mean Corpuscular Volume 84fL (79-100) Mean Corpuscular Hemoglobin 28pg (25-35) Mean Corpuscular Hemoglobin Concent 33g/dL (31-37) Red Cell Distribution Width 15.9% (11.5-14.5) Platelet Count 333x10^3/uL (140-400) Neutrophils (%) (Auto) 57% (31-73) Lymphocytes (%) (Auto) 30% (24-48) Monocytes (%) (Auto) 5% (0-9) Eosinophils (%) (Auto) 2% (0-3) Basophils (%) (Auto) 5% (0-3) Neutrophils # (Auto) 4.0x10^3uL (1.8-7.7) Lymphocytes # (Auto) 2.1x10^3/uL (1.0-4.8) Monocytes # (Auto) 0.4x10^3/uL (0.0-1.1) Eosinophils # (Auto) 0.2x10^3/uL (0.0-0.7) Basophils # (Auto) 0.4x10^3/uL (0.0-0.2) Sodium Level 143mmol/L (136-145) Potassium Level 4.1mmol/L (3.5-5.1) Chloride Level 107mmol/L (98-107) Carbon Dioxide Level 32mmol/L (21-32) Anion Gap 4 (6-14) Blood Urea Nitrogen 9mg/dL (8-26) Creatinine 0.6mg/dL (0.7-1.3) Estimated GFR (Cockcroft-Gault) 139.9 Glucose Level 160mg/dL (70-99) Calcium Level 8.5mg/dL (8.5-10.1) Glucose (Fingerstick) 124mg/dL (70-99) 100mg/dL (70-99) Laboratory Tests Test 07/21/16 11:46 07/21/16 17:16 07/21/16 20:25 07/22/16 05:35 Glucose (Fingerstick) 166mg/dL (70-99) 171mg/dL (70-99) 216mg/dL (70-99) White Blood Count 7.0x10^3/uL (4.0-11.0) Red Blood Count 3.55x10^6/uL (4.30-5.70) Hemoglobin 9.9g/dL (13.0-17.5) Hematocrit 29.9% (39.0-53.0) Mean Corpuscular Volume 84fL (79-100) Mean Corpuscular Hemoglobin 28pg (25-35) Mean Corpuscular Hemoglobin Concent 33g/dL (31-37) Red Cell Distribution Width 15.9% (11.5-14.5) Platelet Count 333x10^3/uL (140-400) Neutrophils (%) (Auto) 57% (31-73) Lymphocytes (%) (Auto) 30% (24-48) Monocytes (%) (Auto) 5% (0-9) Eosinophils (%) (Auto) 2% (0-3) Basophils (%) (Auto) 5% (0-3) Neutrophils # (Auto) 4.0x10^3uL (1.8-7.7) Lymphocytes # (Auto) 2.1x10^3/uL (1.0-4.8) Monocytes # (Auto) 0.4x10^3/uL (0.0-1.1) Eosinophils # (Auto) 0.2x10^3/uL (0.0-0.7) Basophils # (Auto) 0.4x10^3/uL (0.0-0.2) Sodium Level 143mmol/L (136-145) Potassium Level 4.1mmol/L (3.5-5.1) Chloride Level 107mmol/L (98-107) Carbon Dioxide Level 32mmol/L (21-32) Anion Gap 4 (6-14) Blood Urea Nitrogen 9mg/dL (8-26) Creatinine 0.6mg/dL (0.7-1.3) Estimated GFR (Cockcroft-Gault) 139.9 Glucose Level 160mg/dL (70-99) Calcium Level 8.5mg/dL (8.5-10.1) Test 07/22/16 07:35 07/22/16 09:51 Glucose (Fingerstick) 124mg/dL (70-99) 100mg/dL (70-99) Microbiology 07/17/16 Blood Culture - Final, Complete NO GROWTH AFTER 5 DAYS 07/09/16 Urine Culture - Final, Complete 07/09/16 Urine Culture Result 1 (EMILI) - Final, Complete 07/09/16 Antimicrobic Susceptibility - Final, Complete 07/14/16 Anaerobic/Aerobic Culture - Final, Complete 07/14/16 Anaerobic Culture Result 1 (EMILI) - Final, Complete 07/14/16 Aerobic Culture - Final, Complete 07/14/16 Aerobic Culture Result 1 (EMILI) - Final, Complete 07/14/16 Antimicrobic Susceptibility - Final, Complete Medications Current Medications Sodium Chloride (Iv Sodium Chloride 0.9% 1000ml Bag) 1,000 ml @ 1,000 mls/hr Q1H IV Last administered on 07/09/16t 19:34; Start 07/09/16 at 19:18; Stop at 20:17; Status DC Hydromorphone HCl (Dilaudid) 2 mg 1X ONCE IV ; Start 07/09/16 at 19:30; Stop at 19:30; Status DC Ondansetron HCl (Zofran) 4 mg 1X ONCE IV Last administered on 07/09/16 19:33 ; Start 07/09/16 at 19:30; Stop 07/09/16 at 19:31; Status DC Hydromorphone HCl (Dilaudid) 1 mg 1X ONCE IV Last administered on 07/09/16 19 :33; Start 07/09/16 at 19:30; Stop 07/09/16 at 19:31; Status DC Ondansetron HCl (Zofran) 4 mg PRN Q8HRS PRN IV NAUSEA/VOMITING; Start 07/09/16 at 20:30; Stop 07/09/16 at 21:00; Status DC Morphine Sulfate 4 mg 4 mg PRN Q2HR PRN IV PAIN Last administered on 07/10/16 06:36; Start 07/09/16 at 20:30; Stop 07/10/16 at 13:00; Status DC Sodium Chloride (Iv Sodium Chloride 0.9% 1000ml Bag) 1,000 ml @ 150 mls/hr Q6H40M IV Last administered on 07/09/16 20:41; Start 07/09/16 at 20:24; Stop 07/10/16 at 15:29; Status DC Acetaminophen (Tylenol) 650 mg PRN Q4HRS PRN PO FEVER; Start 07/09/16 at 20:30 ; Stop 07/09/16 at 21:00; Status DC Acetaminophen (Tylenol) 650 mg PRN Q6HRS PRN PO FEVER; Start 07/09/16 at 21:00 ; Stop 07/10/16 at 15:28; Status DC Ondansetron HCl 4 mg 4 mg PRN Q6HRS PRN IV NAUSEA/VOMITING Last administered on 07/22/16 08:25; Start 07/09/16 at 21:00 Sodium Chloride (Iv Sodium Chloride 0.9% 1000ml Bag) 1,000 ml @ 150 mls/hr Q6H40M IV Last administered on 07/13/16 17:59; Start 07/09/16 at 21:00; Stop 07/13/16 at 19:27; Status DC Insulin Aspart (Novolog) 0-9 UNITS TIDWMEALS SQ Last administered on 07/21/16 17:26; Start 07/10/16 at 08:00 Dextrose 12.5 gm 12.5 gm PRN Q15MIN PRN IV SEE COMMENTS; Start 07/09/16 at 21: 00 Levofloxacin/ Dextrose (LEVAQUIN 500mg PREMIX) 100 ml @ 100 mls/hr Q24H IV Last administered on 07/12/16 02:49; Start 07/09/16 at 22:00; Stop 07/12/16 at 10:37; Status DC Guaifenesin (Mucinex) 600 mg BID PO Last administered on 07/21/16 21:48; Start 07/09/16 at 21:00 Albuterol Sulfate 2.5 mg 2.5 mg PRN Q4HRS PRN NEB SHORTNESS OF BREATH; Start at 21:00 Sodium Chloride (Iv Sodium Chloride 0.9% 1000ml Bag) 1,000 ml @ 0 mls/hr 1X ONCE IV Last administered on 07/10/16 10:27; Start 07/10/16 at 10:30; Stop at 10:31; Status DC Alprazolam (Xanax) 0.5 mg PRN Q8HRS PRN PO ANXIETY / AGITATION Last administered on 07/21/16 17:20; Start 07/10/16 at 13:00 Acetaminophen/ Hydrocodone Bitart (Lortab 5/325) 1 tab PRN Q6HRS PRN PO MODERATE - SEVERE PAIN Last administered on 07/21/16 21:50; Start 07/10/16 at 13 :00 Acetaminophen (Tylenol) 650 mg PRN Q6HRS PRN PO MILD PAIN / TEMP Last administered on 07/21/16 11:29; Start 07/10/16 at 13:00 Heparin Sodium (Porcine) 5000 unit 5,000 unit Q8HRS SQ Last administered on 14:02; Start 07/10/16 at 14:00; Stop 07/11/16 at 22:55; Status DC Magnesium Sulfate/ Dextrose (Magnesium Sulfate PREMIX 2GM) 50 ml @ 25 mls/hr PRN DAILY PRN IV for Mag < 1.7 on am labs; Start 07/10/16 at 14:00 Diphenhydramine HCl (Benadryl) 25 mg PRN Q6HRS PRN IVP ITCHING Last administered on 07/13/16 01:52; Start 07/11/16 at 01:30 Lorazepam 2 mg 2 mg PRN Q4HRS PRN IV ANXIETY / AGITATION Last administered on 21:49; Start 07/11/16 at 01:30 Albumin Human (Albuminar) 100 ml @ 100 mls/hr TID IV Last administered on 07/13 13:56; Start 07/11/16 at 14:00; Stop 07/13/16 at 09:59; Status DC Insulin Aspart (Novolog) 10 units TIDAC SQ Last administered on 07/12/16 08:46 ; Start 07/11/16 at 12:30; Stop 07/12/16 at 09:17; Status DC Insulin Detemir 25 units 25 units QHS SQ Last administered on 07/12/16 01:48; Start 07/11/16 at 21:00; Stop 07/12/16 at 09:17; Status DC Heparin Sodium/ Dextrose 500 ml @ 0 mls/hr CONT PRN IV SEE I/O RECORD Last administered on 07/13/16 12:12; Start 07/11/16 at 23:00; Stop 07/13/16 at 12:32 ; Status DC Heparin Sodium (Porcine) 3,800 unit PRN Q6HRS PRN IV FOR UFH LEVEL LESS THAN 0.2 Last administered on 07/12/16 19:37; Start 07/11/16 at 23:00; Stop at 12:32; Status DC Heparin Sodium (Porcine) 1,900 unit PRN Q6HRS PRN IV FOR UFH LEVEL 0.2 - 0.29 Last administered on 07/13/16 02:33; Start 07/11/16 at 23:00; Stop 07/13/16 at 12:32; Status DC Warfarin Sodium (Coumadin Per Pharmacy) 1 each PRN DAILY PRN MC PER PROTOCOL Last administered on 07/17/16 13:43; Start 07/11/16 at 23:00; Stop 07/19/16 at 12:42; Status DC Warfarin Sodium (Coumadin) 5 mg 1X ONCE PO Last administered on 07/12/16 01: 45; Start 07/12/16 at 00:15; Stop 07/12/16 at 00:16; Status DC Info (Anti-Coagulation Monitoring By Pharmacy) 1 each PRN DAILY PRN MC SEE COMMENTS Last administered on 07/16/16 14:36; Start 07/11/16 at 23:45 Heparin Sodium (Porcine) 10,000 unit 1X ONCE IV Last administered on 01:48; Start 07/12/16 at 01:15; Stop 07/12/16 at 01:16; Status DC Insulin Aspart (Novolog) 12 units TIDAC SQ Last administered on 07/13/16 12:08 ; Start 07/12/16 at 11:30; Stop 07/13/16 at 12:32; Status DC Insulin Detemir (Levemir) 30 units QHS SQ Last administered on 07/12/16 21:07 ; Start 07/12/16 at 21:00; Stop 07/13/16 at 12:32; Status DC Tramadol HCl (Ultram) 50 mg PRN Q6HRS PRN PO PAIN; Start 07/12/16 at 10:15 Tramadol HCl (Ultram) 50 mg 1X ONCE PO Last administered on 07/12/16 14:32; Start 07/12/16 at 10:15; Stop 07/12/16 at 10:29; Status DC Methylprednisolone Acetate (Depo-Medrol 40mg Vial) 40 mg 1X ONCE IM ; Start at 10:30; Stop 07/12/16 at 10:31; Status DC Bupivacaine HCl (Sensorcaine-Mpf 0.25%) 10 ml 1X ONCE IJ ; Start 07/12/16 at 10 :30; Stop 07/12/16 at 10:31; Status DC Hydromorphone HCl 1 mg 1 mg 1X ONCE IV Last administered on 07/12/16 10:55; Start 07/12/16 at 10:30; Stop 07/12/16 at 10:46; Status DC Cefazolin Sodium 2 gm/Sodium Chloride 50 ml @ 100 mls/hr Q8HRS IV ; Start 07/12 at 11:00; Status Cancel Cefazolin Sodium/ Sodium Chloride (Ancef/Iv Sodium Chloride 0.9% 50ml) 50 ml @ 100 mls/hr Q8HRS IV Last administered on 07/22/16 05:28; Start 07/12/16 at 11: 00 Warfarin Sodium (Coumadin) 6 mg 1X WARF ONCE PO Last administered on 17:58; Start 07/12/16 at 16:00; Stop 07/12/16 at 16:01; Status DC Hydromorphone HCl (Dilaudid) 1 mg PRN Q4HRS PRN IVP PAIN Last administered on 22:25; Start 07/12/16 at 15:30 Polyethylene Glycol (miraLAX PACKET) 17 gm BID PO Last administered on 08:07; Start 07/12/16 at 21:00 Docusate Sodium (Colace) 100 mg PRN DAILY PRN PO CONSTIPATION; Start 07/12/16 at 15:30 Docusate Sodium (Colace) 100 mg DAILY PO Last administered on 07/15/16 08:07; Start 07/13/16 at 09:00 Magnesium Hydroxide (Milk Of Magnesia) 2,400 mg PRN DAILY PRN PO CONSTIPATION; Start 07/12/16 at 15:30 Gadobutrol (Gadavist) 7 mmol 1X ONCE IV Last administered on 07/13/16 10:45; Start 07/13/16 at 10:45; Stop 07/13/16 at 10:51; Status DC Gadobutrol (Gadavist) 7 mmol 1X ONCE IV Last administered on 07/13/16 10:45; Start 07/13/16 at 10:45; Stop 07/13/16 at 10:51; Status DC Warfarin Sodium (Coumadin) 10 mg 1X WARF ONCE PO Last administered on 17:56; Start 07/13/16 at 16:00; Stop 07/13/16 at 16:01; Status DC Enoxaparin Sodium (Lovenox Per Pharmacy Treatment Dosing) 1 each PRN DAILY PRN MC SEE COMMENTS; Start 07/13/16 at 12:30 Insulin Aspart (Novolog) 15 units TIDAC SQ Last administered on 07/21/16 17:25 ; Start 07/13/16 at 16:30 Insulin Detemir (Levemir) 40 units QHS SQ Last administered on 07/21/16 21:54; Start 07/13/16 at 21:00 Enoxaparin Sodium (Lovenox 150mg Syringe) 140 mg BID SQ Last administered on 3/ 1/17at 21:49; Start 07/13/16 at 21:00 Warfarin Sodium (Coumadin) 15 mg 1X WARF ONCE PO ; Start 07/14/16 at 16:00; Stop 07/14/16 at 16:01; Status DC Ondansetron HCl (Zofran) 4 mg PRN Q6HRS PRN IV Nausea; Start 07/14/16 at 13:45 ; Stop 07/14/16 at 20:00; Status DC Fentanyl Citrate (Fentanyl 2ml Vial) 25 mcg PRN Q5MIN PRN IV MILD PAIN; Start 07/14/16 at 13:45; Stop 07/14/16 at 20:00; Status DC Fentanyl Citrate (Fentanyl 2ml Vial) 50 mcg PRN Q5MIN PRN IV MODERATE PAIN Last administered on 07/14/16t 18:15; Start 07/14/16 at 13:45; Stop 07/15/16 at 20:00; Status DC Morphine Sulfate 1 mg 1 mg PRN Q10MIN PRN IV SEVERE PAIN; Start 07/14/16 at 13: 45; Stop 07/14/16 at 20:00; Status DC Lactated Ringer's (Iv Lactated Ringers) 1,000 ml @ 30 mls/hr Q24H IV ; Start at 13:42; Stop 07/14/16 at 19:44; Status DC Lidocaine HCl 2 ml 1X PRN PRN ID IV START; Start 07/14/16 at 13:45; Stop at 20:00; Status DC Hydromorphone HCl (Dilaudid) 0.5 mg PRN Q10MIN PRN IV SEV PAIN,Second choice; Start 07/14/16 at 13:45; Stop 07/14/16 at 18:00; Status DC Prochlorperazine Edisylate (Compazine) 5 mg PACU PRN PRN IV NAUSEA Last administered on 07/14/16t 17:55; Start 07/14/16 at 13:45; Stop 07/14/16 at 20:00 ; Status DC Bupivacaine HCl/ Epinephrine Bitart 50 ml 50 ml STK-MED ONCE .ROUTE ; Start at 15:20; Stop 07/14/16 at 15:21; Status DC Propofol (Diprivan) 20 ml @ As Directed STK-MED ONCE IV ; Start 07/14/16 at 15: 26; Stop 07/14/16 at 15:27; Status DC Lidocaine HCl 100 mg STK-MED ONCE .ROUTE ; Start 07/14/16 at 15:26; Stop at 15:27; Status DC Fentanyl Citrate (Fentanyl 2ml Vial) 100 mcg STK-MED ONCE .ROUTE ; Start at 15:27; Stop 07/14/16 at 15:28; Status DC Rocuronium Ferguson (Zemuron) 50 mg STK-MED ONCE .ROUTE ; Start 07/14/16 at 15:27 ; Stop 07/14/16 at 15:28; Status DC Dexamethasone Sodium Phosphate (Decadron) 20 mg STK-MED ONCE .ROUTE ; Start at 16:34; Stop 07/14/16 at 16:35; Status DC Desflurane (Suprane) 30 ml STK-MED ONCE IH ; Start 07/14/16 at 16:35; Stop 07/14 at 16:36; Status DC Ondansetron HCl (Zofran) 4 mg STK-MED ONCE .ROUTE ; Start 07/14/16 at 16:46; Stop 07/14/16 at 16:47; Status DC Glycopyrrolate (Robinul) 1 mg STK-MED ONCE .ROUTE ; Start 07/14/16 at 16:46; Stop 07/14/16 at 16:47; Status DC Neostigmine Methylsulfate 5 mg STK-MED ONCE .ROUTE ; Start 07/14/16 at 16:46; Stop 07/14/16 at 16:47; Status DC Fentanyl Citrate (Fentanyl 2ml Vial) 100 mcg STK-MED ONCE .ROUTE ; Start at 16:57; Stop 07/14/16 at 16:58; Status DC Insulin Aspart 10 units 10 units 1X ONCE SQ Last administered on 07/15/16t 08: 26; Start 07/15/16 at 08:30; Stop 07/15/16 at 08:31; Status DC Cefazolin Sodium/ Dextrose (Ancef 2gm Premix) 50 ml @ 100 mls/hr 1X PREOP PRN IV PER PROTOCOL Last administered on 07/16/16t 05:56; Start 07/16/16 at 10:30; Stop 07/16/16 at 18:00; Status DC Insulin Aspart (Novolog) 15 units 1X ONCE SQ Last administered on 07/15/16 12 :25; Start 07/15/16 at 12:15; Stop 07/15/16 at 12:16; Status DC Warfarin Sodium (Coumadin - No Dose Today) 1 each 1X WARF ONCE MC Last administered on 07/15/16 16:00; Start 07/15/16 at 16:00; Stop 07/15/16 at 16:01 ; Status DC Rocuronium Ferguson (Zemuron) 50 mg STK-MED ONCE .ROUTE ; Start 07/16/16 at 09:56 ; Stop 07/16/16 at 09:57; Status DC Dexamethasone Sodium Phosphate (Decadron) 20 mg STK-MED ONCE .ROUTE ; Start at 09:58; Stop 07/16/16 at 09:59; Status DC Ondansetron HCl 4 mg 4 mg STK-MED ONCE .ROUTE ; Start 07/16/16 at 09:58; Stop at 09:59; Status DC Propofol (Diprivan) 20 ml @ As Directed STK-MED ONCE IV ; Start 07/16/16 at 09: 58; Stop 07/16/16 at 09:59; Status DC Lidocaine HCl 100 mg STK-MED ONCE .ROUTE ; Start 07/16/16 at 09:58; Stop at 09:59; Status DC Fentanyl Citrate (Fentanyl 5ml Vial) 250 mcg STK-MED ONCE .ROUTE ; Start at 09:58; Stop 07/16/16 at 09:59; Status DC Midazolam HCl (Versed) 2 mg STK-MED ONCE .ROUTE ; Start 07/16/16 at 09:58; Stop 07/16/16 at 09:59; Status DC Famotidine (Pepcid) 20 mg STK-MED ONCE .ROUTE ; Start 07/16/16 at 09:58; Stop at 09:59; Status DC Succinylcholine Chloride (Anectine) 200 mg STK-MED ONCE .ROUTE ; Start 07/16/16 at 10:10; Stop 07/16/16 at 10:11; Status DC Succinylcholine Chloride 200 mg 200 mg STK-MED ONCE .ROUTE ; Start 07/16/16 at 10:26; Stop 07/16/16 at 10:27; Status DC Acetaminophen (Ofirmev) 100 ml @ As Directed STK-MED ONCE IV ; Start 07/16/16 at 11:49; Stop 07/16/16 at 11:50; Status DC Glycopyrrolate (Robinul) 1 mg STK-MED ONCE .ROUTE ; Start 07/16/16 at 11:55; Stop 07/16/16 at 11:56; Status DC Neostigmine Methylsulfate 5 mg STK-MED ONCE .ROUTE ; Start 07/16/16 at 11:55; Stop 07/16/16 at 11:56; Status DC Ondansetron HCl (Zofran) 4 mg PRN Q6HRS PRN IV Nausea; Start 07/16/16 at 12:30 ; Stop 07/17/16 at 12:29; Status DC Fentanyl Citrate (Fentanyl 2ml Vial) 25 mcg PRN Q5MIN PRN IV MILD PAIN; Start 07/16/16 at 12:30; Stop 07/17/16 at 12:29; Status DC Fentanyl Citrate (Fentanyl 2ml Vial) 50 mcg PRN Q5MIN PRN IV MODERATE PAIN; Start 07/16/16 at 12:30; Stop 07/17/16 at 12:29; Status DC Morphine Sulfate 1 mg 1 mg PRN Q10MIN PRN IV SEVERE PAIN; Start 07/16/16 at 12: 30; Stop 07/17/16 at 12:29; Status DC Lactated Ringer's (Iv Lactated Ringers) 1,000 ml @ 30 mls/hr Q24H IV ; Start at 12:28; Stop 07/17/16 at 00:27; Status DC Lidocaine HCl 2 ml 1X PRN PRN ID IV START; Start 07/16/16 at 12:30; Stop at 12:29; Status DC Hydromorphone HCl (Dilaudid) 0.5 mg PRN Q10MIN PRN IV SEV PAIN,Second choice Last administered on 07/16/16t 14:38; Start 07/16/16 at 12:30; Stop 07/17/16 at 12:29; Status DC Prochlorperazine Edisylate (Compazine) 5 mg PACU PRN PRN IV NAUSEA; Start 07/16 at 12:30; Stop 07/17/16 at 12:29; Status DC Warfarin Sodium (Coumadin) 10 mg 1X WARF ONCE PO Last administered on 15:58; Start 07/16/16 at 16:00; Stop 07/16/16 at 16:01; Status DC Ondansetron HCl (Zofran) 4 mg PRN Q6HRS PRN IV Nausea Last administered on 07/19 14:09; Start 07/19/16 at 07:00; Stop 07/20/16 at 06:59; Status DC Fentanyl Citrate (Fentanyl 2ml Vial) 25 mcg PRN Q5MIN PRN IV MILD PAIN; Start 07/19/16 at 07:00; Stop 07/20/16 at 06:59; Status DC Fentanyl Citrate (Fentanyl 2ml Vial) 50 mcg PRN Q5MIN PRN IV MODERATE PAIN; Start 07/19/16 at 07:00; Stop 07/20/16 at 06:59; Status DC Morphine Sulfate 1 mg 1 mg PRN Q10MIN PRN IV SEVERE PAIN; Start 07/19/16 at 07: 00; Stop 07/20/16 at 06:59; Status DC Lactated Ringer's (Iv Lactated Ringers) 1,000 ml @ 0 mls/hr Q0M IV Last administered on 07/19/16 10:53; Start 07/19/16 at 07:00; Stop 07/19/16 at 18:59 ; Status DC Lidocaine HCl 2 ml 1X PRN PRN ID IV START; Start 07/19/16 at 07:00; Stop at 06:59; Status DC Hydromorphone HCl (Dilaudid) 0.5 mg PRN Q10MIN PRN IV SEVERE PAIN, Second choice; Start 07/19/16 at 07:00; Stop 07/20/16 at 06:59; Status DC Prochlorperazine Edisylate (Compazine) 5 mg PACU PRN PRN IV NAUSEA; Start 07/19 at 07:00; Stop 07/20/16 at 06:59; Status DC Sodium Chloride (Normal Saline Flush) 10 ml QSHIFT PRN IV AFTER MEDS AND BLOOD DRAWS; Start 07/17/16 at 12:00; Stop 07/17/16 at 12:06; Status DC Lidocaine HCl (Xylocaine 2% Topical 5gm Tube) 1 silvia 1X ONCE TP ; Start at 12:00; Stop 07/17/16 at 12:06; Status DC Lidocaine HCl (Viscous Lidocaine) 15 ml 1X ONCE MM ; Start 07/17/16 at 12:00; Stop 07/17/16 at 12:06; Status DC Benzocaine (Hurricaine One) 1 spray 1X ONCE MM ; Start 07/17/16 at 12:00; Stop 07/17/16 at 12:06; Status DC Bupivacaine HCl/ Epinephrine Bitart (Sensorcaine-Epi 0.25%-1:230639 Mpf) 30 ml STK-MED ONCE .ROUTE ; Start 07/19/16 at 07:20; Stop 07/19/16 at 07:21; Status DC Sodium Chloride (Normal Saline Flush) 10 ml QSHIFT PRN IV AFTER MEDS AND BLOOD DRAWS; Start 07/19/16 at 10:15 Lidocaine HCl (Xylocaine 2% Topical 5gm Tube) 1 silvia 1X ONCE TP ; Start at 10:15; Stop 07/19/16 at 10:16; Status DC Lidocaine HCl (Viscous Lidocaine) 15 ml 1X ONCE MM ; Start 07/19/16 at 10:15; Stop 07/19/16 at 10:16; Status DC Benzocaine 1 spray 1 spray 1X ONCE MM ; Start 07/19/16 at 10:15; Stop 07/19/16 at 10:16; Status DC Propofol (Diprivan) 20 ml @ As Directed STK-MED ONCE IV ; Start 07/19/16 at 10: 37; Stop 07/19/16 at 10:38; Status DC Lidocaine HCl 100 mg STK-MED ONCE .ROUTE ; Start 07/19/16 at 10:37; Stop at 10:38; Status DC Ondansetron HCl (Zofran) 4 mg STK-MED ONCE .ROUTE ; Start 07/19/16 at 10:37; Stop 07/19/16 at 10:38; Status DC Dexamethasone Sodium Phosphate (Decadron) 20 mg STK-MED ONCE .ROUTE ; Start at 10:37; Stop 07/19/16 at 10:38; Status DC Fentanyl Citrate (Fentanyl 2ml Vial) 100 mcg STK-MED ONCE .ROUTE ; Start at 10:37; Stop 07/19/16 at 10:38; Status DC Rocuronium Ferguson (Zemuron) 50 mg STK-MED ONCE .ROUTE ; Start 07/19/16 at 10:54 ; Stop 07/19/16 at 10:55; Status DC Ephedrine Sulfate 50 mg STK-MED ONCE IV ; Start 07/19/16 at 11:05; Stop at 11:06; Status DC Phenylephrine HCl 1 mg STK-MED ONCE IV ; Start 07/19/16 at 11:07; Stop 07/19/16 at 11:08; Status DC Sevoflurane 30 ml 30 ml STK-MED ONCE IH ; Start 07/19/16 at 11:14; Stop at 11:15; Status DC Propofol (Diprivan) 20 ml @ As Directed STK-MED ONCE IV ; Start 07/19/16 at 12: 15; Stop 07/19/16 at 12:16; Status DC Neostigmine Methylsulfate 5 mg STK-MED ONCE .ROUTE ; Start 07/19/16 at 12:16; Stop 07/19/16 at 12:17; Status DC Glycopyrrolate (Robinul) 1 mg STK-MED ONCE .ROUTE ; Start 07/19/16 at 12:16; Stop 07/19/16 at 12:17; Status DC Phenylephrine HCl 1 mg 1 mg STK-MED ONCE IV ; Start 07/19/16 at 12:25; Stop at 12:26; Status DC Cefazolin Sodium/ Dextrose (Ancef 2gm Premix) 50 ml @ 100 mls/hr 1X PREOP PRN IV FOR SURGERY; Start 07/22/16 at 06:00; Stop 07/22/16 at 18:00 Ondansetron HCl (Zofran) 4 mg PRN Q6HRS PRN IV Nausea; Start 07/22/16 at 07:00; Stop 07/23/16 at 06:59 Fentanyl Citrate (Fentanyl 2ml Vial) 25 mcg PRN Q5MIN PRN IV MILD PAIN; Start 07/22/16 at 07:00; Stop 07/23/16 at 06:59 Fentanyl Citrate (Fentanyl 2ml Vial) 50 mcg PRN Q5MIN PRN IV MODERATE PAIN; Start 07/22/16 at 07:00; Stop 07/23/16 at 06:59 Morphine Sulfate 1 mg 1 mg PRN Q10MIN PRN IV SEVERE PAIN; Start 07/22/16 at 07: 00; Stop 07/23/16 at 06:59 Lactated Ringer's (Iv Lactated Ringers) 1,000 ml @ 0 mls/hr Q0M IV ; Start 07/22 at 07:00; Stop 07/22/16 at 18:59 Lidocaine HCl 2 ml 1X PRN PRN ID IV START; Start 07/22/16 at 07:00; Stop at 06:59 Hydromorphone HCl (Dilaudid) 0.5 mg PRN Q10MIN PRN IV SEVERE PAIN, Second choice; Start 07/22/16 at 07:00; Stop 07/23/16 at 06:59 Prochlorperazine Edisylate (Compazine) 5 mg PACU PRN PRN IV NAUSEA; Start at 07:00; Stop 07/23/16 at 06:59 Midazolam HCl (Versed) 2 mg STK-MED ONCE .ROUTE ; Start 07/22/16 at 08:15; Stop 07/22/16 at 08:16; Status DC Fentanyl Citrate 100 mcg 100 mcg STK-MED ONCE .ROUTE ; Start 07/22/16 at 08:15; Stop 07/22/16 at 08:16; Status DC Propofol (Diprivan) 20 ml @ As Directed STK-MED ONCE IV ; Start 07/22/16 at 08:15 ; Stop 07/22/16 at 08:16; Status DC Famotidine (Pepcid) 20 mg STK-MED ONCE .ROUTE ; Start 07/22/16 at 08:15; Stop 07/22/16 at 08:16; Status DC Ondansetron HCl (Zofran) 4 mg STK-MED ONCE .ROUTE ; Start 07/22/16 at 08:15; Stop 07/22/16 at 08:16; Status DC Lidocaine HCl 100 mg STK-MED ONCE .ROUTE ; Start 07/22/16 at 08:16; Stop 07/22/16 at 08:17; Status DC Sevoflurane (Ultane) 60 ml STK-MED ONCE IH ; Start 07/22/16 at 08:16; Stop at 08:17; Status DC Sevoflurane (Ultane) 30 ml STK-MED ONCE IH ; Start 07/22/16 at 08:16; Stop at 08:17; Status DC Rocuronium Ferguson (Zemuron) 50 mg STK-MED ONCE .ROUTE ; Start 07/22/16 at 08:47 ; Stop 07/22/16 at 08:48; Status DC Succinylcholine Chloride (Anectine) 200 mg STK-MED ONCE .ROUTE ; Start 07/22/16 at 08:48; Stop 07/22/16 at 08:49; Status DC Active Scripts Active Phenergan (Promethazine HCl) 25 Mg Supp.rect 25 Mg RC Q8HRS PRN Zofran Odt (Ondansetron) 4 Mg Tab.rapdis 1 Tab SL Q8HRS PRN Vitals/I & O Vital Sign - Last 24 Hours 07/21/16 07/21/16 07/21/16 07/21/16 11:41 14:00 15:00 15:00 Temp 98.4 98.4 Pulse 88 Resp 19 B/P 146/67 Pulse Ox 96 95 O2 Delivery Room Air Room Air Room Air Room Air 07/21/16 07/21/16 07/21/16 07/21/16 19:00 20:00 21:50 23:00 Temp 99.0 99.3 99.0 99.3 Pulse 93 90 Resp 20 18 20 B/P 139/69 167/74 Pulse Ox 95 95 95 O2 Delivery Room Air Room Air Room Air Room Air O2 Flow Rate 2.0 07/22/16 07/22/16 07/22/16 03:13 07:00 08:02 Temp 98.1 98.6 97.9 98.1 98.6 97.9 Pulse 93 97 85 Resp 20 20 15 B/P 143/71 109/70 167/76 Pulse Ox 97 93 95 O2 Delivery Room Air Room Air Room Air Intake and Output 07/21/16 07/21/16 07/22/16 15:00 23:00 07:00 Intake Total 500 ml 1450 ml 1000 ml Output Total 800 ml 1600 ml Balance 500 ml 650 ml -600 ml MANOHAR FITZPATRICK MD Jul 22, 2016 10:01
[2016-07-22] MEDS: FENTANYL PF 100 MCG/2 ML VIAL. IV PRN ×2 (10:12→10:45)
[2016-07-22] MEDS: LISINOPRIL 20 MG TABLET PO SCH (11:18)
[2016-07-22] MEDS: hydrALAZINE 20 MG/ML VIAL. IVP PRN (11:51)
[2016-07-22] MEDS: HYDROMORPHONE 2 MG/ML VIAL. IVP PRN (11:59)
--- NOTE | 2016-07-22 16:11 | PDOC ---
PROGRESS NOTES Subjective Subjective He is disappointed as wound is ready for closure as he expected. Objective Objective Vital Signs Date Time Temp Pulse Resp B/P Pulse Ox O2 Delivery O2 Flow Rate FiO2 07/22/16 15:00 98.4 88 16 150/69 97 Room Air 98.4 07/22/16 10:45 2.0 Intake and Output 07/22/16 07:00 Intake Total 2950 ml Output Total 2400 ml Balance 550 ml Intake Oral 2950 ml Output Urine Total 2400 ml Physical Exam Physical Exam He is supine in bed and does not seem to be in any acute distress. Assessment Assessment Problems Medical Problems: (1) Acute renal injury Status: Acute (2) Dehydration Status: Acute (3) Hyponatremia Status: Acute (4) Nausea & vomiting Status: Acute (5) Septic arthritis of acromioclavicular joint Status: Acute (6) Uncontrolled diabetes mellitus Status: Acute Plan Plan of Care To get him up as tolerated. Comment Review of Relevant I have reviewed the following items [place] (where applicable) has been applied. Labs Laboratory Tests Test 07/20/16 16:53 07/20/16 20:21 07/21/16 07:34 07/21/16 08:35 Glucose (Fingerstick) 129mg/dL (70-99) 213mg/dL (70-99) 111mg/dL (70-99) White Blood Count 9.0x10^3/uL (4.0-11.0) Red Blood Count 3.89x10^6/uL (4.30-5.70) Hemoglobin 10.7g/dL (13.0-17.5) Hematocrit 33.7% (39.0-53.0) Mean Corpuscular Volume 86fL (79-100) Mean Corpuscular Hemoglobin 28pg (25-35) Mean Corpuscular Hemoglobin Concent 32g/dL (31-37) Red Cell Distribution Width 16.3% (11.5-14.5) Platelet Count 396x10^3/uL (140-400) Neutrophils (%) (Auto) 72% (31-73) Lymphocytes (%) (Auto) 20% (24-48) Monocytes (%) (Auto) 5% (0-9) Eosinophils (%) (Auto) 2% (0-3) Basophils (%) (Auto) 1% (0-3) Neutrophils # (Auto) 6.5x10^3uL (1.8-7.7) Lymphocytes # (Auto) 1.8x10^3/uL (1.0-4.8) Monocytes # (Auto) 0.5x10^3/uL (0.0-1.1) Eosinophils # (Auto) 0.2x10^3/uL (0.0-0.7) Basophils # (Auto) 0.1x10^3/uL (0.0-0.2) Sodium Level 145mmol/L (136-145) Potassium Level 4.1mmol/L (3.5-5.1) Chloride Level 106mmol/L (98-107) Carbon Dioxide Level 31mmol/L (21-32) Anion Gap 8 (6-14) Blood Urea Nitrogen 11mg/dL (8-26) Creatinine 0.7mg/dL (0.7-1.3) Estimated GFR (Cockcroft-Gault) 117.1 Glucose Level 120mg/dL (70-99) Calcium Level 8.8mg/dL (8.5-10.1) Test 07/21/16 11:46 07/21/16 17:16 07/21/16 20:25 07/22/16 05:35 Glucose (Fingerstick) 166mg/dL (70-99) 171mg/dL (70-99) 216mg/dL (70-99) White Blood Count 7.0x10^3/uL (4.0-11.0) Red Blood Count 3.55x10^6/uL (4.30-5.70) Hemoglobin 9.9g/dL (13.0-17.5) Hematocrit 29.9% (39.0-53.0) Mean Corpuscular Volume 84fL (79-100) Mean Corpuscular Hemoglobin 28pg (25-35) Mean Corpuscular Hemoglobin Concent 33g/dL (31-37) Red Cell Distribution Width 15.9% (11.5-14.5) Platelet Count 333x10^3/uL (140-400) Neutrophils (%) (Auto) 57% (31-73) Lymphocytes (%) (Auto) 30% (24-48) Monocytes (%) (Auto) 5% (0-9) Eosinophils (%) (Auto) 2% (0-3) Basophils (%) (Auto) 5% (0-3) Neutrophils # (Auto) 4.0x10^3uL (1.8-7.7) Lymphocytes # (Auto) 2.1x10^3/uL (1.0-4.8) Monocytes # (Auto) 0.4x10^3/uL (0.0-1.1) Eosinophils # (Auto) 0.2x10^3/uL (0.0-0.7) Basophils # (Auto) 0.4x10^3/uL (0.0-0.2) Sodium Level 143mmol/L (136-145) Potassium Level 4.1mmol/L (3.5-5.1) Chloride Level 107mmol/L (98-107) Carbon Dioxide Level 32mmol/L (21-32) Anion Gap 4 (6-14) Blood Urea Nitrogen 9mg/dL (8-26) Creatinine 0.6mg/dL (0.7-1.3) Estimated GFR (Cockcroft-Gault) 139.9 Glucose Level 160mg/dL (70-99) Calcium Level 8.5mg/dL (8.5-10.1) Test 07/22/16 07:35 07/22/16 09:51 07/22/16 11:09 07/22/16 14:37 Glucose (Fingerstick) 124mg/dL (70-99) 100mg/dL (70-99) 110mg/dL (70-99) 172mg/dL (70-99) Laboratory Tests Test 07/21/16 17:16 07/21/16 20:25 07/22/16 05:35 07/22/16 07:35 Glucose (Fingerstick) 171mg/dL (70-99) 216mg/dL (70-99) 124mg/dL (70-99) White Blood Count 7.0x10^3/uL (4.0-11.0) Red Blood Count 3.55x10^6/uL (4.30-5.70) Hemoglobin 9.9g/dL (13.0-17.5) Hematocrit 29.9% (39.0-53.0) Mean Corpuscular Volume 84fL (79-100) Mean Corpuscular Hemoglobin 28pg (25-35) Mean Corpuscular Hemoglobin Concent 33g/dL (31-37) Red Cell Distribution Width 15.9% (11.5-14.5) Platelet Count 333x10^3/uL (140-400) Neutrophils (%) (Auto) 57% (31-73) Lymphocytes (%) (Auto) 30% (24-48) Monocytes (%) (Auto) 5% (0-9) Eosinophils (%) (Auto) 2% (0-3) Basophils (%) (Auto) 5% (0-3) Neutrophils # (Auto) 4.0x10^3uL (1.8-7.7) Lymphocytes # (Auto) 2.1x10^3/uL (1.0-4.8) Monocytes # (Auto) 0.4x10^3/uL (0.0-1.1) Eosinophils # (Auto) 0.2x10^3/uL (0.0-0.7) Basophils # (Auto) 0.4x10^3/uL (0.0-0.2) Sodium Level 143mmol/L (136-145) Potassium Level 4.1mmol/L (3.5-5.1) Chloride Level 107mmol/L (98-107) Carbon Dioxide Level 32mmol/L (21-32) Anion Gap 4 (6-14) Blood Urea Nitrogen 9mg/dL (8-26) Creatinine 0.6mg/dL (0.7-1.3) Estimated GFR (Cockcroft-Gault) 139.9 Glucose Level 160mg/dL (70-99) Calcium Level 8.5mg/dL (8.5-10.1) Test 07/22/16 09:51 07/22/16 11:09 07/22/16 14:37 Glucose (Fingerstick) 100mg/dL (70-99) 110mg/dL (70-99) 172mg/dL (70-99) Microbiology 07/17/16 Blood Culture - Final, Complete NO GROWTH AFTER 5 DAYS 07/09/16 Urine Culture - Final, Complete 07/09/16 Urine Culture Result 1 (EMILI) - Final, Complete 07/09/16 Antimicrobic Susceptibility - Final, Complete 07/14/16 Anaerobic/Aerobic Culture - Final, Complete 07/14/16 Anaerobic Culture Result 1 (EMILI) - Final, Complete 07/14/16 Aerobic Culture - Final, Complete 07/14/16 Aerobic Culture Result 1 (EMILI) - Final, Complete 07/14/16 Antimicrobic Susceptibility - Final, Complete Medications Current Medications Sodium Chloride (Iv Sodium Chloride 0.9% 1000ml Bag) 1,000 ml @ 1,000 mls/hr Q1H IV Last administered on 07/09/16 19:34; Start 07/09/16 at 19:18; Stop at 20:17; Status DC Hydromorphone HCl (Dilaudid) 2 mg 1X ONCE IV ; Start 07/09/16 at 19:30; Stop at 19:30; Status DC Ondansetron HCl (Zofran) 4 mg 1X ONCE IV Last administered on 07/09/16 19:33 ; Start 07/09/16 at 19:30; Stop 07/09/16 at 19:31; Status DC Hydromorphone HCl (Dilaudid) 1 mg 1X ONCE IV Last administered on 07/09/16 19 :33; Start 07/09/16 at 19:30; Stop 07/09/16 at 19:31; Status DC Ondansetron HCl (Zofran) 4 mg PRN Q8HRS PRN IV NAUSEA/VOMITING; Start 07/09/16 at 20:30; Stop 07/09/16 at 21:00; Status DC Morphine Sulfate 4 mg 4 mg PRN Q2HR PRN IV PAIN Last administered on 07/10/16 06:36; Start 07/09/16 at 20:30; Stop 07/10/16 at 13:00; Status DC Sodium Chloride (Iv Sodium Chloride 0.9% 1000ml Bag) 1,000 ml @ 150 mls/hr Q6H40M IV Last administered on 07/09/16 20:41; Start 07/09/16 at 20:24; Stop 07/10/16 at 15:29; Status DC Acetaminophen (Tylenol) 650 mg PRN Q4HRS PRN PO FEVER; Start 07/09/16 at 20:30 ; Stop 07/09/16 at 21:00; Status DC Acetaminophen (Tylenol) 650 mg PRN Q6HRS PRN PO FEVER; Start 07/09/16 at 21:00 ; Stop 07/10/16 at 15:28; Status DC Ondansetron HCl 4 mg 4 mg PRN Q6HRS PRN IV NAUSEA/VOMITING Last administered on 07/22/16 08:25; Start 07/09/16 at 21:00 Sodium Chloride (Iv Sodium Chloride 0.9% 1000ml Bag) 1,000 ml @ 150 mls/hr Q6H40M IV Last administered on 07/13/16 17:59; Start 07/09/16 at 21:00; Stop 07/13/16 at 19:27; Status DC Insulin Aspart (Novolog) 0-9 UNITS TIDWMEALS SQ Last administered on 07/21/16 17:26; Start 07/10/16 at 08:00 Dextrose 12.5 gm 12.5 gm PRN Q15MIN PRN IV SEE COMMENTS; Start 07/09/16 at 21: 00 Levofloxacin/ Dextrose (LEVAQUIN 500mg PREMIX) 100 ml @ 100 mls/hr Q24H IV Last administered on 07/12/16 02:49; Start 07/09/16 at 22:00; Stop 07/12/16 at 10:37; Status DC Guaifenesin (Mucinex) 600 mg BID PO Last administered on 07/21/16 21:48; Start 07/09/16 at 21:00 Albuterol Sulfate 2.5 mg 2.5 mg PRN Q4HRS PRN NEB SHORTNESS OF BREATH; Start at 21:00 Sodium Chloride (Iv Sodium Chloride 0.9% 1000ml Bag) 1,000 ml @ 0 mls/hr 1X ONCE IV Last administered on 07/10/16 10:27; Start 07/10/16 at 10:30; Stop at 10:31; Status DC Alprazolam (Xanax) 0.5 mg PRN Q8HRS PRN PO ANXIETY / AGITATION Last administered on 07/21/16 17:20; Start 07/10/16 at 13:00 Acetaminophen/ Hydrocodone Bitart (Lortab 5/325) 1 tab PRN Q6HRS PRN PO MODERATE - SEVERE PAIN Last administered on 07/21/16 21:50; Start 07/10/16 at 13 :00 Acetaminophen (Tylenol) 650 mg PRN Q6HRS PRN PO MILD PAIN / TEMP Last administered on 07/21/16 11:29; Start 07/10/16 at 13:00 Heparin Sodium (Porcine) 5000 unit 5,000 unit Q8HRS SQ Last administered on 14:02; Start 07/10/16 at 14:00; Stop 07/11/16 at 22:55; Status DC Magnesium Sulfate/ Dextrose (Magnesium Sulfate PREMIX 2GM) 50 ml @ 25 mls/hr PRN DAILY PRN IV for Mag < 1.7 on am labs; Start 07/10/16 at 14:00 Diphenhydramine HCl (Benadryl) 25 mg PRN Q6HRS PRN IVP ITCHING Last administered on 07/13/16 01:52; Start 07/11/16 at 01:30 Lorazepam 2 mg 2 mg PRN Q4HRS PRN IV ANXIETY / AGITATION Last administered on 21:49; Start 07/11/16 at 01:30 Albumin Human (Albuminar) 100 ml @ 100 mls/hr TID IV Last administered on 07/13 13:56; Start 07/11/16 at 14:00; Stop 07/13/16 at 09:59; Status DC Insulin Aspart (Novolog) 10 units TIDAC SQ Last administered on 07/12/16 08:46 ; Start 07/11/16 at 12:30; Stop 07/12/16 at 09:17; Status DC Insulin Detemir 25 units 25 units QHS SQ Last administered on 07/12/16 01:48; Start 07/11/16 at 21:00; Stop 07/12/16 at 09:17; Status DC Heparin Sodium/ Dextrose 500 ml @ 0 mls/hr CONT PRN IV SEE I/O RECORD Last administered on 07/13/16 12:12; Start 07/11/16 at 23:00; Stop 07/13/16 at 12:32 ; Status DC Heparin Sodium (Porcine) 3,800 unit PRN Q6HRS PRN IV FOR UFH LEVEL LESS THAN 0.2 Last administered on 07/12/16 19:37; Start 07/11/16 at 23:00; Stop at 12:32; Status DC Heparin Sodium (Porcine) 1,900 unit PRN Q6HRS PRN IV FOR UFH LEVEL 0.2 - 0.29 Last administered on 07/13/16 02:33; Start 07/11/16 at 23:00; Stop 07/13/16 at 12:32; Status DC Warfarin Sodium (Coumadin Per Pharmacy) 1 each PRN DAILY PRN MC PER PROTOCOL Last administered on 07/17/16 13:43; Start 07/11/16 at 23:00; Stop 07/19/16 at 12:42; Status DC Warfarin Sodium (Coumadin) 5 mg 1X ONCE PO Last administered on 07/12/16 01: 45; Start 07/12/16 at 00:15; Stop 07/12/16 at 00:16; Status DC Info (Anti-Coagulation Monitoring By Pharmacy) 1 each PRN DAILY PRN MC SEE COMMENTS Last administered on 07/16/16 14:36; Start 07/11/16 at 23:45 Heparin Sodium (Porcine) 10,000 unit 1X ONCE IV Last administered on 01:48; Start 07/12/16 at 01:15; Stop 07/12/16 at 01:16; Status DC Insulin Aspart (Novolog) 12 units TIDAC SQ Last administered on 07/13/16 12:08 ; Start 07/12/16 at 11:30; Stop 07/13/16 at 12:32; Status DC Insulin Detemir (Levemir) 30 units QHS SQ Last administered on 07/12/16 21:07 ; Start 07/12/16 at 21:00; Stop 07/13/16 at 12:32; Status DC Tramadol HCl (Ultram) 50 mg PRN Q6HRS PRN PO PAIN; Start 07/12/16 at 10:15 Tramadol HCl (Ultram) 50 mg 1X ONCE PO Last administered on 07/12/16 14:32; Start 07/12/16 at 10:15; Stop 07/12/16 at 10:29; Status DC Methylprednisolone Acetate (Depo-Medrol 40mg Vial) 40 mg 1X ONCE IM ; Start at 10:30; Stop 07/12/16 at 10:31; Status DC Bupivacaine HCl (Sensorcaine-Mpf 0.25%) 10 ml 1X ONCE IJ ; Start 07/12/16 at 10 :30; Stop 07/12/16 at 10:31; Status DC Hydromorphone HCl 1 mg 1 mg 1X ONCE IV Last administered on 07/12/16 10:55; Start 07/12/16 at 10:30; Stop 07/12/16 at 10:46; Status DC Cefazolin Sodium 2 gm/Sodium Chloride 50 ml @ 100 mls/hr Q8HRS IV ; Start 07/12 at 11:00; Status Cancel Cefazolin Sodium/ Sodium Chloride (Ancef/Iv Sodium Chloride 0.9% 50ml) 50 ml @ 100 mls/hr Q8HRS IV Last administered on 07/22/16 14:19; Start 07/12/16 at 11: 00 Warfarin Sodium (Coumadin) 6 mg 1X WARF ONCE PO Last administered on 17:58; Start 07/12/16 at 16:00; Stop 07/12/16 at 16:01; Status DC Hydromorphone HCl (Dilaudid) 1 mg PRN Q4HRS PRN IVP PAIN Last administered on 11:59; Start 07/12/16 at 15:30 Polyethylene Glycol (miraLAX PACKET) 17 gm BID PO Last administered on 08:07; Start 07/12/16 at 21:00 Docusate Sodium (Colace) 100 mg PRN DAILY PRN PO CONSTIPATION; Start 07/12/16 at 15:30 Docusate Sodium (Colace) 100 mg DAILY PO Last administered on 07/15/16 08:07; Start 07/13/16 at 09:00 Magnesium Hydroxide (Milk Of Magnesia) 2,400 mg PRN DAILY PRN PO CONSTIPATION; Start 07/12/16 at 15:30 Gadobutrol (Gadavist) 7 mmol 1X ONCE IV Last administered on 07/13/16 10:45; Start 07/13/16 at 10:45; Stop 07/13/16 at 10:51; Status DC Gadobutrol (Gadavist) 7 mmol 1X ONCE IV Last administered on 07/13/16 10:45; Start 07/13/16 at 10:45; Stop 07/13/16 at 10:51; Status DC Warfarin Sodium (Coumadin) 10 mg 1X WARF ONCE PO Last administered on 17:56; Start 07/13/16 at 16:00; Stop 07/13/16 at 16:01; Status DC Enoxaparin Sodium (Lovenox Per Pharmacy Treatment Dosing) 1 each PRN DAILY PRN MC SEE COMMENTS; Start 07/13/16 at 12:30 Insulin Aspart (Novolog) 15 units TIDAC SQ Last administered on 07/21/16 17:25 ; Start 07/13/16 at 16:30 Insulin Detemir (Levemir) 40 units QHS SQ Last administered on 07/21/16 21:54; Start 07/13/16 at 21:00 Enoxaparin Sodium (Lovenox 150mg Syringe) 140 mg BID SQ Last administered on 21:49; Start 07/13/16 at 21:00 Warfarin Sodium (Coumadin) 15 mg 1X WARF ONCE PO ; Start 07/14/16 at 16:00; Stop 07/14/16 at 16:01; Status DC Ondansetron HCl (Zofran) 4 mg PRN Q6HRS PRN IV Nausea; Start 07/14/16 at 13:45 ; Stop 07/14/16 at 20:00; Status DC Fentanyl Citrate (Fentanyl 2ml Vial) 25 mcg PRN Q5MIN PRN IV MILD PAIN; Start 07/14/16 at 13:45; Stop 07/14/16 at 20:00; Status DC Fentanyl Citrate (Fentanyl 2ml Vial) 50 mcg PRN Q5MIN PRN IV MODERATE PAIN Last administered on 07/14/16 18:15; Start 07/14/16 at 13:45; Stop 07/15/16 at 20:00; Status DC Morphine Sulfate 1 mg 1 mg PRN Q10MIN PRN IV SEVERE PAIN; Start 07/14/16 at 13: 45; Stop 07/14/16 at 20:00; Status DC Lactated Ringer's (Iv Lactated Ringers) 1,000 ml @ 30 mls/hr Q24H IV ; Start at 13:42; Stop 07/14/16 at 19:44; Status DC Lidocaine HCl 2 ml 1X PRN PRN ID IV START; Start 07/14/16 at 13:45; Stop at 20:00; Status DC Hydromorphone HCl (Dilaudid) 0.5 mg PRN Q10MIN PRN IV SEV PAIN,Second choice; Start 07/14/16 at 13:45; Stop 07/14/16 at 18:00; Status DC Prochlorperazine Edisylate (Compazine) 5 mg PACU PRN PRN IV NAUSEA Last administered on 07/14/16t 17:55; Start 07/14/16 at 13:45; Stop 07/14/16 at 20:00 ; Status DC Bupivacaine HCl/ Epinephrine Bitart 50 ml 50 ml STK-MED ONCE .ROUTE ; Start at 15:20; Stop 07/14/16 at 15:21; Status DC Propofol (Diprivan) 20 ml @ As Directed STK-MED ONCE IV ; Start 07/14/16 at 15: 26; Stop 07/14/16 at 15:27; Status DC Lidocaine HCl 100 mg STK-MED ONCE .ROUTE ; Start 07/14/16 at 15:26; Stop at 15:27; Status DC Fentanyl Citrate (Fentanyl 2ml Vial) 100 mcg STK-MED ONCE .ROUTE ; Start at 15:27; Stop 07/14/16 at 15:28; Status DC Rocuronium [place] (Zemuron) 50 mg STK-MED ONCE .ROUTE ; Start 07/14/16 at 15:27 ; Stop 07/14/16 at 15:28; Status DC Dexamethasone Sodium Phosphate (Decadron) 20 mg STK-MED ONCE .ROUTE ; Start at 16:34; Stop 07/14/16 at 16:35; Status DC Desflurane (Suprane) 30 ml STK-MED ONCE IH ; Start 07/14/16 at 16:35; Stop 07/14 at 16:36; Status DC Ondansetron HCl (Zofran) 4 mg STK-MED ONCE .ROUTE ; Start 07/14/16 at 16:46; Stop 07/14/16 at 16:47; Status DC Glycopyrrolate (Robinul) 1 mg STK-MED ONCE .ROUTE ; Start 07/14/16 at 16:46; Stop 07/14/16 at 16:47; Status DC Neostigmine Methylsulfate 5 mg STK-MED ONCE .ROUTE ; Start 07/14/16 at 16:46; Stop 07/14/16 at 16:47; Status DC Fentanyl Citrate (Fentanyl 2ml Vial) 100 mcg STK-MED ONCE .ROUTE ; Start at 16:57; Stop 07/14/16 at 16:58; Status DC Insulin Aspart 10 units 10 units 1X ONCE SQ Last administered on 07/15/16 08: 26; Start 07/15/16 at 08:30; Stop 07/15/16 at 08:31; Status DC Cefazolin Sodium/ Dextrose (Ancef 2gm Premix) 50 ml @ 100 mls/hr 1X PREOP PRN IV PER PROTOCOL Last administered on 07/16/16 05:56; Start 07/16/16 at 10:30; Stop 07/16/16 at 18:00; Status DC Insulin Aspart (Novolog) 15 units 1X ONCE SQ Last administered on 07/15/16 12 :25; Start 07/15/16 at 12:15; Stop 07/15/16 at 12:16; Status DC Warfarin Sodium (Coumadin - No Dose Today) 1 each 1X WARF ONCE MC Last administered on 07/15/16 16:00; Start 07/15/16 at 16:00; Stop 07/15/16 at 16:01 ; Status DC Rocuronium [place] (Zemuron) 50 mg STK-MED ONCE .ROUTE ; Start 07/16/16 at 09:56 ; Stop 07/16/16 at 09:57; Status DC Dexamethasone Sodium Phosphate (Decadron) 20 mg STK-MED ONCE .ROUTE ; Start at 09:58; Stop 07/16/16 at 09:59; Status DC Ondansetron HCl 4 mg 4 mg STK-MED ONCE .ROUTE ; Start 07/16/16 at 09:58; Stop at 09:59; Status DC Propofol (Diprivan) 20 ml @ As Directed STK-MED ONCE IV ; Start 07/16/16 at 09: 58; Stop 07/16/16 at 09:59; Status DC Lidocaine HCl 100 mg STK-MED ONCE .ROUTE ; Start 07/16/16 at 09:58; Stop at 09:59; Status DC Fentanyl Citrate (Fentanyl 5ml Vial) 250 mcg STK-MED ONCE .ROUTE ; Start at 09:58; Stop 07/16/16 at 09:59; Status DC Midazolam HCl (Versed) 2 mg STK-MED ONCE .ROUTE ; Start 07/16/16 at 09:58; Stop 07/16/16 at 09:59; Status DC Famotidine (Pepcid) 20 mg STK-MED ONCE .ROUTE ; Start 07/16/16 at 09:58; Stop at 09:59; Status DC Succinylcholine Chloride (Anectine) 200 mg STK-MED ONCE .ROUTE ; Start 07/16/16 at 10:10; Stop 07/16/16 at 10:11; Status DC Succinylcholine Chloride 200 mg 200 mg STK-MED ONCE .ROUTE ; Start 07/16/16 at 10:26; Stop 07/16/16 at 10:27; Status DC Acetaminophen (Ofirmev) 100 ml @ As Directed STK-MED ONCE IV ; Start 07/16/16 at 11:49; Stop 07/16/16 at 11:50; Status DC Glycopyrrolate (Robinul) 1 mg STK-MED ONCE .ROUTE ; Start 07/16/16 at 11:55; Stop 07/16/16 at 11:56; Status DC Neostigmine Methylsulfate 5 mg STK-MED ONCE .ROUTE ; Start 07/16/16 at 11:55; Stop 07/16/16 at 11:56; Status DC Ondansetron HCl (Zofran) 4 mg PRN Q6HRS PRN IV Nausea; Start 07/16/16 at 12:30 ; Stop 07/17/16 at 12:29; Status DC Fentanyl Citrate (Fentanyl 2ml Vial) 25 mcg PRN Q5MIN PRN IV MILD PAIN; Start 07/16/16 at 12:30; Stop 07/17/16 at 12:29; Status DC Fentanyl Citrate (Fentanyl 2ml Vial) 50 mcg PRN Q5MIN PRN IV MODERATE PAIN; Start 07/16/16 at 12:30; Stop 07/17/16 at 12:29; Status DC Morphine Sulfate 1 mg 1 mg PRN Q10MIN PRN IV SEVERE PAIN; Start 07/16/16 at 12: 30; Stop 07/17/16 at 12:29; Status DC Lactated Ringer's (Iv Lactated Ringers) 1,000 ml @ 30 mls/hr Q24H IV ; Start at 12:28; Stop 07/17/16 at 00:27; Status DC Lidocaine HCl 2 ml 1X PRN PRN ID IV START; Start 07/16/16 at 12:30; Stop at 12:29; Status DC Hydromorphone HCl (Dilaudid) 0.5 mg PRN Q10MIN PRN IV SEV PAIN,Second choice Last administered on 07/16/16 14:38; Start 07/16/16 at 12:30; Stop 07/17/16 at 12:29; Status DC Prochlorperazine Edisylate (Compazine) 5 mg PACU PRN PRN IV NAUSEA; Start 07/16 at 12:30; Stop 07/17/16 at 12:29; Status DC Warfarin Sodium (Coumadin) 10 mg 1X WARF ONCE PO Last administered on 15:58; Start 07/16/16 at 16:00; Stop 07/16/16 at 16:01; Status DC Ondansetron HCl (Zofran) 4 mg PRN Q6HRS PRN IV Nausea Last administered on 07/19 14:09; Start 07/19/16 at 07:00; Stop 07/20/16 at 06:59; Status DC Fentanyl Citrate (Fentanyl 2ml Vial) 25 mcg PRN Q5MIN PRN IV MILD PAIN; Start 07/19/16 at 07:00; Stop 07/20/16 at 06:59; Status DC Fentanyl Citrate (Fentanyl 2ml Vial) 50 mcg PRN Q5MIN PRN IV MODERATE PAIN; Start 07/19/16 at 07:00; Stop 07/20/16 at 06:59; Status DC Morphine Sulfate 1 mg 1 mg PRN Q10MIN PRN IV SEVERE PAIN; Start 07/19/16 at 07: 00; Stop 07/20/16 at 06:59; Status DC Lactated Ringer's (Iv Lactated Ringers) 1,000 ml @ 0 mls/hr Q0M IV Last administered on 07/19/16 10:53; Start 07/19/16 at 07:00; Stop 07/19/16 at 18:59 ; Status DC Lidocaine HCl 2 ml 1X PRN PRN ID IV START; Start 07/19/16 at 07:00; Stop at 06:59; Status DC Hydromorphone HCl (Dilaudid) 0.5 mg PRN Q10MIN PRN IV SEVERE PAIN, Second choice; Start 07/19/16 at 07:00; Stop 07/20/16 at 06:59; Status DC Prochlorperazine Edisylate (Compazine) 5 mg PACU PRN PRN IV NAUSEA; Start 07/19 at 07:00; Stop 07/20/16 at 06:59; Status DC Sodium Chloride (Normal Saline Flush) 10 ml QSHIFT PRN IV AFTER MEDS AND BLOOD DRAWS; Start 07/17/16 at 12:00; Stop 07/17/16 at 12:06; Status DC Lidocaine HCl (Xylocaine 2% Topical 5gm Tube) 1 silvia 1X ONCE TP ; Start at 12:00; Stop 07/17/16 at 12:06; Status DC Lidocaine HCl (Viscous Lidocaine) 15 ml 1X ONCE MM ; Start 07/17/16 at 12:00; Stop 07/17/16 at 12:06; Status DC Benzocaine (Hurricaine One) 1 spray 1X ONCE MM ; Start 07/17/16 at 12:00; Stop 07/17/16 at 12:06; Status DC Bupivacaine HCl/ Epinephrine Bitart (Sensorcaine-Epi 0.25%-1:[id number] Mpf) 30 ml STK-MED ONCE .ROUTE ; Start 07/19/16 at 07:20; Stop 07/19/16 at 07:21; Status DC Sodium Chloride (Normal Saline Flush) 10 ml QSHIFT PRN IV AFTER MEDS AND BLOOD DRAWS; Start 07/19/16 at 10:15 Lidocaine HCl (Xylocaine 2% Topical 5gm Tube) 1 silvia 1X ONCE TP ; Start at 10:15; Stop 07/19/16 at 10:16; Status DC Lidocaine HCl (Viscous Lidocaine) 15 ml 1X ONCE MM ; Start 07/19/16 at 10:15; Stop 07/19/16 at 10:16; Status DC Benzocaine 1 spray 1 spray 1X ONCE MM ; Start 07/19/16 at 10:15; Stop 07/19/16 at 10:16; Status DC Propofol (Diprivan) 20 ml @ As Directed STK-MED ONCE IV ; Start 07/19/16 at 10: 37; Stop 07/19/16 at 10:38; Status DC Lidocaine HCl 100 mg STK-MED ONCE .ROUTE ; Start 07/19/16 at 10:37; Stop at 10:38; Status DC Ondansetron HCl (Zofran) 4 mg STK-MED ONCE .ROUTE ; Start 07/19/16 at 10:37; Stop 07/19/16 at 10:38; Status DC Dexamethasone Sodium Phosphate (Decadron) 20 mg STK-MED ONCE .ROUTE ; Start at 10:37; Stop 07/19/16 at 10:38; Status DC Fentanyl Citrate (Fentanyl 2ml Vial) 100 mcg STK-MED ONCE .ROUTE ; Start at 10:37; Stop 07/19/16 at 10:38; Status DC Rocuronium [place] (Zemuron) 50 mg STK-MED ONCE .ROUTE ; Start 07/19/16 at 10:54 ; Stop 07/19/16 at 10:55; Status DC Ephedrine Sulfate 50 mg STK-MED ONCE IV ; Start 07/19/16 at 11:05; Stop at 11:06; Status DC Phenylephrine HCl 1 mg STK-MED ONCE IV ; Start 07/19/16 at 11:07; Stop 07/19/16 at 11:08; Status DC Sevoflurane 30 ml 30 ml STK-MED ONCE IH ; Start 07/19/16 at 11:14; Stop at 11:15; Status DC Propofol (Diprivan) 20 ml @ As Directed STK-MED ONCE IV ; Start 07/19/16 at 12: 15; Stop 07/19/16 at 12:16; Status DC Neostigmine Methylsulfate 5 mg STK-MED ONCE .ROUTE ; Start 07/19/16 at 12:16; Stop 07/19/16 at 12:17; Status DC Glycopyrrolate (Robinul) 1 mg STK-MED ONCE .ROUTE ; Start 07/19/16 at 12:16; Stop 07/19/16 at 12:17; Status DC Phenylephrine HCl 1 mg 1 mg STK-MED ONCE IV ; Start 07/19/16 at 12:25; Stop at 12:26; Status DC Cefazolin Sodium/ Dextrose (Ancef 2gm Premix) 50 ml @ 100 mls/hr 1X PREOP PRN IV FOR SURGERY Last administered on 07/22/16 14:16; Start 07/22/16 at 06:00; Stop 07/22/16 at 18:00 Ondansetron HCl (Zofran) 4 mg PRN Q6HRS PRN IV Nausea; Start 07/22/16 at 07:00; Stop 07/23/16 at 06:59 Fentanyl Citrate (Fentanyl 2ml Vial) 25 mcg PRN Q5MIN PRN IV MILD PAIN; Start 07/22/16 at 07:00; Stop 07/23/16 at 06:59 Fentanyl Citrate (Fentanyl 2ml Vial) 50 mcg PRN Q5MIN PRN IV MODERATE PAIN Last administered on 07/22/16 10:45; Start 07/22/16 at 07:00; Stop 07/23/16 at 06: 59 Morphine Sulfate 1 mg 1 mg PRN Q10MIN PRN IV SEVERE PAIN; Start 07/22/16 at 07: 00; Stop 07/23/16 at 06:59 Lactated Ringer's (Iv Lactated Ringers) 1,000 ml @ 0 mls/hr Q0M IV ; Start 07/22 at 07:00; Stop 07/22/16 at 18:59 Lidocaine HCl 2 ml 1X PRN PRN ID IV START; Start 07/22/16 at 07:00; Stop at 06:59 Hydromorphone HCl (Dilaudid) 0.5 mg PRN Q10MIN PRN IV SEVERE PAIN, Second choice; Start 07/22/16 at 07:00; Stop 07/23/16 at 06:59 Prochlorperazine Edisylate (Compazine) 5 mg PACU PRN PRN IV NAUSEA; Start at 07:00; Stop 07/23/16 at 06:59 Midazolam HCl (Versed) 2 mg STK-MED ONCE .ROUTE ; Start 07/22/16 at 08:15; Stop 07/22/16 at 08:16; Status DC Fentanyl Citrate 100 mcg 100 mcg STK-MED ONCE .ROUTE ; Start 07/22/16 at 08:15; Stop 07/22/16 at 08:16; Status DC Propofol (Diprivan) 20 ml @ As Directed STK-MED ONCE IV ; Start 07/22/16 at 08:15 ; Stop 07/22/16 at 08:16; Status DC Famotidine (Pepcid) 20 mg STK-MED ONCE .ROUTE ; Start 07/22/16 at 08:15; Stop 07/22/16 at 08:16; Status DC Ondansetron HCl (Zofran) 4 mg STK-MED ONCE .ROUTE ; Start 07/22/16 at 08:15; Stop 07/22/16 at 08:16; Status DC Lidocaine HCl 100 mg STK-MED ONCE .ROUTE ; Start 07/22/16 at 08:16; Stop 07/22/16 at 08:17; Status DC Sevoflurane (Ultane) 60 ml STK-MED ONCE IH ; Start 07/22/16 at 08:16; Stop at 08:17; Status DC Sevoflurane (Ultane) 30 ml STK-MED ONCE IH ; Start 07/22/16 at 08:16; Stop at 08:17; Status DC Rocuronium [place] (Zemuron) 50 mg STK-MED ONCE .ROUTE ; Start 07/22/16 at 08:47 ; Stop 07/22/16 at 08:48; Status DC Succinylcholine Chloride (Anectine) 200 mg STK-MED ONCE .ROUTE ; Start 07/22/16 at 08:48; Stop 07/22/16 at 08:49; Status DC Lisinopril (Prinivil) 20 mg DAILY PO Last administered on 07/22/16 11:18; Start 07/22/16 at 12:00 Hydralazine HCl (Apresoline) 10 mg PRN Q4HRS PRN IVP for SBP > 180 Last administered on 07/22/16 11:51; Start 07/22/16 at 11:30 Active Scripts Active Phenergan (Promethazine HCl) 25 Mg Supp.rect 25 Mg RC Q8HRS PRN Zofran Odt (Ondansetron) 4 Mg Tab.rapdis 1 Tab SL Q8HRS PRN Vitals/I & O Vital Sign - Last 24 Hours 07/21/16 07/21/16 07/21/16 07/21/16 19:00 20:00 21:50 23:00 Temp 99.0 99.3 99.0 99.3 Pulse 93 90 Resp 20 18 20 B/P 139/69 167/74 Pulse Ox 95 95 95 O2 Delivery Room Air Room Air Room Air Room Air O2 Flow Rate 2.0 07/22/16 07/22/16 07/22/16 07/22/16 03:13 07:00 08:02 09:45 Temp 98.1 98.6 97.9 98.5 98.1 98.6 97.9 98.5 Pulse 93 97 85 89 Resp 20 20 15 18 B/P 143/71 109/70 167/76 156/68 Pulse Ox 97 93 95 100 O2 Delivery Room Air Room Air Room Air Simple Mask O2 Flow Rate 10 07/22/16 07/22/16 07/22/16 07/22/16 10:00 10:12 10:16 10:31 Temp 97.4 97.4 Pulse 85 83 80 Resp 16 16 18 16 B/P 175/79 169/72 171/71 Pulse Ox 93 95 95 93 O2 Delivery Room Air Room Air Room Air Nasal Cannula O2 Flow Rate 2 07/22/16 07/22/16 07/22/16 07/22/16 10:45 11:00 11:00 11:15 Temp 98.1 98.1 Pulse 83 84 84 Resp 18 B/P 180/87 158/70 189/91 Pulse Ox 95 92 92 O2 Delivery Room Air Room Air O2 Flow Rate 2.0 07/22/16 07/22/16 07/22/16 07/22/16 11:18 11:19 11:30 11:51 Pulse 86 92 94 B/P 158/70 165/68 189/91 O2 Delivery Room Air 07/22/16 07/22/16 07/22/16 07/22/16 11:59 12:01 12:29 12:31 Pulse 96 115 B/P 149/56 173/78 O2 Delivery Room Air Room Air 07/22/16 07/22/16 07/22/16 07/22/16 13:00 13:01 14:00 14:01 Temp 98.1 98.1 98.1 98.1 Pulse 103 106 94 99 Resp 16 18 B/P 161/59 152/58 155/65 150/65 O2 Delivery Room Air Room Air 07/22/16 07/22/16 15:00 15:00 Temp 98.4 98.4 98.4 98.4 Pulse 95 88 Resp 20 16 B/P 154/67 150/69 Pulse Ox 97 O2 Delivery Room Air Room Air Intake and Output 07/21/16 07/21/16 07/22/16 15:00 23:00 07:00 Intake Total 500 ml 1450 ml 1000 ml Output Total 800 ml 1600 ml Balance 500 ml 650 ml -600 ml CLIFFORD BURGOS MD Jul 22, 2016 16:11
[2016-07-22] MEDS: HYDROCODONE/APAP 5/325MG TABLET. PO PRN ×2 (17:13→21:37)
[2016-07-22] MEDS: ALPRAZOLAM 0.5 MG TABLET PO PRN (21:37)
[2016-07-22] MEDS: INSULIN DETEMIR 300 UNITS/3 ML INSULN.PEN. SQ SCH (21:40)
[2016-07-23 03:00] VITALS: BP 152/71
[2016-07-23] MEDS: NORMAL SALINE IV SCH ×2 (05:19→13:57)
[2016-07-23] MEDS: CEFAZOLIN SODIUM IV SCH ×2 (05:19→13:57)
[2016-07-23 07:00] VITALS: BP 121/89
[2016-07-23] MEDS: INSULIN ASPART 300 UNITS/3 ML INSULN.PEN SQ SCH ×4 (07:30→12:01)
[2016-07-23] MEDS: GUAIFENESIN ER 600 MG TABLET.ER PO SCH (07:56)
[2016-07-23] MEDS: LISINOPRIL 20 MG TABLET PO SCH (07:57)
[2016-07-23] MEDS: ENOXAPARIN ** NOTE DOSE ** SYRINGE SQ SCH (07:57)
[2016-07-23] MEDS: DOCUSATE SODIUM 100 MG CAPSULE PO SCH (08:02)
[2016-07-23] MEDS: POLYETHYLENE GLYCOL 3350 17 GM PACKET. PO SCH (08:03)
[2016-07-23] MEDS: ALPRAZOLAM 0.5 MG TABLET PO PRN (10:41)
[2016-07-23] MEDS: HYDROCODONE/APAP 5/325MG TABLET. PO PRN (10:43)
--- NOTE | 2016-07-23 10:45 | PDOC ---
PROGRESS NOTES Subjective Subjective He is worried about continued left shoulder area infection and trying to refer him to [facility] for further evaluation and advise of plastic surgery. Objective Objective Vital Signs Date Time Temp Pulse Resp B/P Pulse Ox O2 Delivery O2 Flow Rate FiO2 07/23/16 07:57 94 121/89 07/23/16 07:00 98.3 18 93 Room Air 98.3 07/22/16 22:37 2.0 Intake and Output 07/23/16 07:00 Intake Total 1790 ml Output Total 2855 ml Balance -1065 ml Intake Oral 1790 ml Output Urine Total 2855 ml # Voids 6 # Bowel Movements 1 Physical Exam Physical Exam He is sitting in bedside recliner and seems to be in no acute distress and he continues with some pain on ROM of left shoulder but not protecting it as much as earlier in the week. Assessment Assessment Problems Medical Problems: (1) Acute renal injury Status: Acute (2) Dehydration Status: Acute (3) Hyponatremia Status: Acute (4) Nausea & vomiting Status: Acute (5) Septic arthritis of acromioclavicular joint Status: Acute (6) Uncontrolled diabetes mellitus Status: Acute Plan Plan of Care Agree with plans. Comment Review of Relevant I have reviewed the following items madison (where applicable) has been applied. Labs Laboratory Tests Test 07/21/16 11:46 07/21/16 17:16 07/21/16 20:25 07/22/16 05:35 Glucose (Fingerstick) 166mg/dL (70-99) 171mg/dL (70-99) 216mg/dL (70-99) White Blood Count 7.0x10^3/uL (4.0-11.0) Red Blood Count 3.55x10^6/uL (4.30-5.70) Hemoglobin 9.9g/dL (13.0-17.5) Hematocrit 29.9% (39.0-53.0) Mean Corpuscular Volume 84fL (79-100) Mean Corpuscular Hemoglobin 28pg (25-35) Mean Corpuscular Hemoglobin Concent 33g/dL (31-37) Red Cell Distribution Width 15.9% (11.5-14.5) Platelet Count 333x10^3/uL (140-400) Neutrophils (%) (Auto) 57% (31-73) Lymphocytes (%) (Auto) 30% (24-48) Monocytes (%) (Auto) 5% (0-9) Eosinophils (%) (Auto) 2% (0-3) Basophils (%) (Auto) 5% (0-3) Neutrophils # (Auto) 4.0x10^3uL (1.8-7.7) Lymphocytes # (Auto) 2.1x10^3/uL (1.0-4.8) Monocytes # (Auto) 0.4x10^3/uL (0.0-1.1) Eosinophils # (Auto) 0.2x10^3/uL (0.0-0.7) Basophils # (Auto) 0.4x10^3/uL (0.0-0.2) Sodium Level 143mmol/L (136-145) Potassium Level 4.1mmol/L (3.5-5.1) Chloride Level 107mmol/L (98-107) Carbon Dioxide Level 32mmol/L (21-32) Anion Gap 4 (6-14) Blood Urea Nitrogen 9mg/dL (8-26) Creatinine 0.6mg/dL (0.7-1.3) Estimated GFR (Cockcroft-Gault) 139.9 Glucose Level 160mg/dL (70-99) Calcium Level 8.5mg/dL (8.5-10.1) Test 07/22/16 07:35 07/22/16 09:51 07/22/16 11:09 07/22/16 14:37 Glucose (Fingerstick) 124mg/dL (70-99) 100mg/dL (70-99) 110mg/dL (70-99) 172mg/dL (70-99) Test 07/22/16 17:11 07/22/16 21:28 Glucose (Fingerstick) 175mg/dL (70-99) 204mg/dL (70-99) Laboratory Tests Test 07/22/16 11:09 07/22/16 14:37 07/22/16 17:11 07/22/16 21:28 Glucose (Fingerstick) 110mg/dL (70-99) 172mg/dL (70-99) 175mg/dL (70-99) 204mg/dL (70-99) Microbiology 07/17/16 Blood Culture - Final, Complete NO GROWTH AFTER 5 DAYS 07/09/16 Urine Culture - Final, Complete 07/09/16 Urine Culture Result 1 (EMILI) - Final, Complete 07/09/16 Antimicrobic Susceptibility - Final, Complete 07/22/16 Gram Stain - Final, Complete Medications Current Medications Sodium Chloride (Iv Sodium Chloride 0.9% 1000ml Bag) 1,000 ml @ 1,000 mls/hr Q1H IV Last administered on 07/09/16 19:34; Start 07/09/16 at 19:18; Stop at 20:17; Status DC Hydromorphone HCl (Dilaudid) 2 mg 1X ONCE IV ; Start 07/09/16 at 19:30; Stop at 19:30; Status DC Ondansetron HCl (Zofran) 4 mg 1X ONCE IV Last administered on 07/09/16 19:33 ; Start 07/09/16 at 19:30; Stop 07/09/16 at 19:31; Status DC Hydromorphone HCl (Dilaudid) 1 mg 1X ONCE IV Last administered on 07/09/16 19 :33; Start 07/09/16 at 19:30; Stop 07/09/16 at 19:31; Status DC Ondansetron HCl (Zofran) 4 mg PRN Q8HRS PRN IV NAUSEA/VOMITING; Start 07/09/16 at 20:30; Stop 07/09/16 at 21:00; Status DC Morphine Sulfate 4 mg 4 mg PRN Q2HR PRN IV PAIN Last administered on 07/10/16 06:36; Start 07/09/16 at 20:30; Stop 07/10/16 at 13:00; Status DC Sodium Chloride (Iv Sodium Chloride 0.9% 1000ml Bag) 1,000 ml @ 150 mls/hr Q6H40M IV Last administered on 07/09/16 20:41; Start 07/09/16 at 20:24; Stop 07/10/16 at 15:29; Status DC Acetaminophen (Tylenol) 650 mg PRN Q4HRS PRN PO FEVER; Start 07/09/16 at 20:30 ; Stop 07/09/16 at 21:00; Status DC Acetaminophen (Tylenol) 650 mg PRN Q6HRS PRN PO FEVER; Start 07/09/16 at 21:00 ; Stop 07/10/16 at 15:28; Status DC Ondansetron HCl 4 mg 4 mg PRN Q6HRS PRN IV NAUSEA/VOMITING Last administered on 07/22/16 08:25; Start 07/09/16 at 21:00 Sodium Chloride (Iv Sodium Chloride 0.9% 1000ml Bag) 1,000 ml @ 150 mls/hr Q6H40M IV Last administered on 07/13/16 17:59; Start 07/09/16 at 21:00; Stop 07/13/16 at 19:27; Status DC Insulin Aspart (Novolog) 0-9 UNITS TIDWMEALS SQ Last administered on 07/22/16 17:17; Start 07/10/16 at 08:00 Dextrose 12.5 gm 12.5 gm PRN Q15MIN PRN IV SEE COMMENTS; Start 07/09/16 at 21: 00 Levofloxacin/ Dextrose (LEVAQUIN 500mg PREMIX) 100 ml @ 100 mls/hr Q24H IV Last administered on 07/12/16 02:49; Start 07/09/16 at 22:00; Stop 07/12/16 at 10:37; Status DC Guaifenesin (Mucinex) 600 mg BID PO Last administered on 07/23/16 07:56; Start 07/09/16 at 21:00 Albuterol Sulfate 2.5 mg 2.5 mg PRN Q4HRS PRN NEB SHORTNESS OF BREATH; Start at 21:00 Sodium Chloride (Iv Sodium Chloride 0.9% 1000ml Bag) 1,000 ml @ 0 mls/hr 1X ONCE IV Last administered on 07/10/16 10:27; Start 07/10/16 at 10:30; Stop at 10:31; Status DC Alprazolam (Xanax) 0.5 mg PRN Q8HRS PRN PO ANXIETY / AGITATION Last administered on 07/22/16 21:37; Start 07/10/16 at 13:00 Acetaminophen/ Hydrocodone Bitart (Lortab 5/325) 1 tab PRN Q6HRS PRN PO MODERATE - SEVERE PAIN Last administered on 07/22/16 21:37; Start 07/10/16 at 13 :00 Acetaminophen (Tylenol) 650 mg PRN Q6HRS PRN PO MILD PAIN / TEMP Last administered on 07/21/16 11:29; Start 07/10/16 at 13:00 Heparin Sodium (Porcine) 5000 unit 5,000 unit Q8HRS SQ Last administered on 14:02; Start 07/10/16 at 14:00; Stop 07/11/16 at 22:55; Status DC Magnesium Sulfate/ Dextrose (Magnesium Sulfate PREMIX 2GM) 50 ml @ 25 mls/hr PRN DAILY PRN IV for Mag < 1.7 on am labs; Start 07/10/16 at 14:00 Diphenhydramine HCl (Benadryl) 25 mg PRN Q6HRS PRN IVP ITCHING Last administered on 07/13/16 01:52; Start 07/11/16 at 01:30 Lorazepam 2 mg 2 mg PRN Q4HRS PRN IV ANXIETY / AGITATION Last administered on 21:49; Start 07/11/16 at 01:30 Albumin Human (Albuminar) 100 ml @ 100 mls/hr TID IV Last administered on 07/13 13:56; Start 07/11/16 at 14:00; Stop 07/13/16 at 09:59; Status DC Insulin Aspart (Novolog) 10 units TIDAC SQ Last administered on 07/12/16 08:46 ; Start 07/11/16 at 12:30; Stop 07/12/16 at 09:17; Status DC Insulin Detemir 25 units 25 units QHS SQ Last administered on 07/12/16 01:48; Start 07/11/16 at 21:00; Stop 07/12/16 at 09:17; Status DC Heparin Sodium/ Dextrose 500 ml @ 0 mls/hr CONT PRN IV SEE I/O RECORD Last administered on 07/13/16 12:12; Start 07/11/16 at 23:00; Stop 07/13/16 at 12:32 ; Status DC Heparin Sodium (Porcine) 3,800 unit PRN Q6HRS PRN IV FOR UFH LEVEL LESS THAN 0.2 Last administered on 07/12/16 19:37; Start 07/11/16 at 23:00; Stop at 12:32; Status DC Heparin Sodium (Porcine) 1,900 unit PRN Q6HRS PRN IV FOR UFH LEVEL 0.2 - 0.29 Last administered on 07/13/16 02:33; Start 07/11/16 at 23:00; Stop 07/13/16 at 12:32; Status DC Warfarin Sodium (Coumadin Per Pharmacy) 1 each PRN DAILY PRN MC PER PROTOCOL Last administered on 07/17/16 13:43; Start 07/11/16 at 23:00; Stop 07/19/16 at 12:42; Status DC Warfarin Sodium (Coumadin) 5 mg 1X ONCE PO Last administered on 07/12/16 01: 45; Start 07/12/16 at 00:15; Stop 07/12/16 at 00:16; Status DC Info (Anti-Coagulation Monitoring By Pharmacy) 1 each PRN DAILY PRN MC SEE COMMENTS Last administered on 07/16/16 14:36; Start 07/11/16 at 23:45 Heparin Sodium (Porcine) 10,000 unit 1X ONCE IV Last administered on 01:48; Start 07/12/16 at 01:15; Stop 07/12/16 at 01:16; Status DC Insulin Aspart (Novolog) 12 units TIDAC SQ Last administered on 07/13/16 12:08 ; Start 07/12/16 at 11:30; Stop 07/13/16 at 12:32; Status DC Insulin Detemir (Levemir) 30 units QHS SQ Last administered on 07/12/16 21:07 ; Start 07/12/16 at 21:00; Stop 07/13/16 at 12:32; Status DC Tramadol HCl (Ultram) 50 mg PRN Q6HRS PRN PO PAIN; Start 07/12/16 at 10:15 Tramadol HCl (Ultram) 50 mg 1X ONCE PO Last administered on 07/12/16 14:32; Start 07/12/16 at 10:15; Stop 07/12/16 at 10:29; Status DC Methylprednisolone Acetate (Depo-Medrol 40mg Vial) 40 mg 1X ONCE IM ; Start at 10:30; Stop 07/12/16 at 10:31; Status DC Bupivacaine HCl (Sensorcaine-Mpf 0.25%) 10 ml 1X ONCE IJ ; Start 07/12/16 at 10 :30; Stop 07/12/16 at 10:31; Status DC Hydromorphone HCl 1 mg 1 mg 1X ONCE IV Last administered on 07/12/16 10:55; Start 07/12/16 at 10:30; Stop 07/12/16 at 10:46; Status DC Cefazolin Sodium 2 gm/Sodium Chloride 50 ml @ 100 mls/hr Q8HRS IV ; Start 07/12 at 11:00; Status Cancel Cefazolin Sodium/ Sodium Chloride (Ancef/Iv Sodium Chloride 0.9% 50ml) 50 ml @ 100 mls/hr Q8HRS IV Last administered on 07/23/16 05:19; Start 07/12/16 at 11: 00 Warfarin Sodium (Coumadin) 6 mg 1X WARF ONCE PO Last administered on 17:58; Start 07/12/16 at 16:00; Stop 07/12/16 at 16:01; Status DC Hydromorphone HCl (Dilaudid) 1 mg PRN Q4HRS PRN IVP PAIN Last administered on 11:59; Start 07/12/16 at 15:30 Polyethylene Glycol (miraLAX PACKET) 17 gm BID PO Last administered on 08:07; Start 07/12/16 at 21:00 Docusate Sodium (Colace) 100 mg PRN DAILY PRN PO CONSTIPATION; Start 07/12/16 at 15:30 Docusate Sodium (Colace) 100 mg DAILY PO Last administered on 07/15/16 08:07; Start 07/13/16 at 09:00 Magnesium Hydroxide (Milk Of Magnesia) 2,400 mg PRN DAILY PRN PO CONSTIPATION; Start 07/12/16 at 15:30 Gadobutrol (Gadavist) 7 mmol 1X ONCE IV Last administered on 07/13/16 10:45; Start 07/13/16 at 10:45; Stop 07/13/16 at 10:51; Status DC Gadobutrol (Gadavist) 7 mmol 1X ONCE IV Last administered on 07/13/16 10:45; Start 07/13/16 at 10:45; Stop 07/13/16 at 10:51; Status DC Warfarin Sodium (Coumadin) 10 mg 1X WARF ONCE PO Last administered on 17:56; Start 07/13/16 at 16:00; Stop 07/13/16 at 16:01; Status DC Enoxaparin Sodium (Lovenox Per Pharmacy Treatment Dosing) 1 each PRN DAILY PRN MC SEE COMMENTS; Start 07/13/16 at 12:30 Insulin Aspart (Novolog) 15 units TIDAC SQ Last administered on 07/22/16 17:16 ; Start 07/13/16 at 16:30 Insulin Detemir (Levemir) 40 units QHS SQ Last administered on 07/22/16 21:40; Start 07/13/16 at 21:00 Enoxaparin Sodium (Lovenox 150mg Syringe) 140 mg BID SQ Last administered on 07:57; Start 07/13/16 at 21:00 Warfarin Sodium (Coumadin) 15 mg 1X WARF ONCE PO ; Start 07/14/16 at 16:00; Stop 07/14/16 at 16:01; Status DC Ondansetron HCl (Zofran) 4 mg PRN Q6HRS PRN IV Nausea; Start 07/14/16 at 13:45 ; Stop 07/14/16 at 20:00; Status DC Fentanyl Citrate (Fentanyl 2ml Vial) 25 mcg PRN Q5MIN PRN IV MILD PAIN; Start 07/14/16 at 13:45; Stop 07/14/16 at 20:00; Status DC Fentanyl Citrate (Fentanyl 2ml Vial) 50 mcg PRN Q5MIN PRN IV MODERATE PAIN Last administered on 07/14/16 18:15; Start 07/14/16 at 13:45; Stop 07/15/16 at 20:00; Status DC Morphine Sulfate 1 mg 1 mg PRN Q10MIN PRN IV SEVERE PAIN; Start 07/14/16 at 13: 45; Stop 07/14/16 at 20:00; Status DC Lactated Ringer's (Iv Lactated Ringers) 1,000 ml @ 30 mls/hr Q24H IV ; Start at 13:42; Stop 07/14/16 at 19:44; Status DC Lidocaine HCl 2 ml 1X PRN PRN ID IV START; Start 07/14/16 at 13:45; Stop at 20:00; Status DC Hydromorphone HCl (Dilaudid) 0.5 mg PRN Q10MIN PRN IV SEV PAIN,Second choice; Start 07/14/16 at 13:45; Stop 07/14/16 at 18:00; Status DC Prochlorperazine Edisylate (Compazine) 5 mg PACU PRN PRN IV NAUSEA Last administered on 07/14/16t 17:55; Start 07/14/16 at 13:45; Stop 07/14/16 at 20:00 ; Status DC Bupivacaine HCl/ Epinephrine Bitart 50 ml 50 ml STK-MED ONCE .ROUTE ; Start at 15:20; Stop 07/14/16 at 15:21; Status DC Propofol (Diprivan) 20 ml @ As Directed STK-MED ONCE IV ; Start 07/14/16 at 15: 26; Stop 07/14/16 at 15:27; Status DC Lidocaine HCl 100 mg STK-MED ONCE .ROUTE ; Start 07/14/16 at 15:26; Stop at 15:27; Status DC Fentanyl Citrate (Fentanyl 2ml Vial) 100 mcg STK-MED ONCE .ROUTE ; Start at 15:27; Stop 07/14/16 at 15:28; Status DC Rocuronium [place] (Zemuron) 50 mg STK-MED ONCE .ROUTE ; Start 07/14/16 at 15:27 ; Stop 07/14/16 at 15:28; Status DC Dexamethasone Sodium Phosphate (Decadron) 20 mg STK-MED ONCE .ROUTE ; Start at 16:34; Stop 07/14/16 at 16:35; Status DC Desflurane (Suprane) 30 ml STK-MED ONCE IH ; Start 07/14/16 at 16:35; Stop 07/14 at 16:36; Status DC Ondansetron HCl (Zofran) 4 mg STK-MED ONCE .ROUTE ; Start 07/14/16 at 16:46; Stop 07/14/16 at 16:47; Status DC Glycopyrrolate (Robinul) 1 mg STK-MED ONCE .ROUTE ; Start 07/14/16 at 16:46; Stop 07/14/16 at 16:47; Status DC Neostigmine Methylsulfate 5 mg STK-MED ONCE .ROUTE ; Start 07/14/16 at 16:46; Stop 07/14/16 at 16:47; Status DC Fentanyl Citrate (Fentanyl 2ml Vial) 100 mcg STK-MED ONCE .ROUTE ; Start at 16:57; Stop 07/14/16 at 16:58; Status DC Insulin Aspart 10 units 10 units 1X ONCE SQ Last administered on 07/15/16 08: 26; Start 07/15/16 at 08:30; Stop 07/15/16 at 08:31; Status DC Cefazolin Sodium/ Dextrose (Ancef 2gm Premix) 50 ml @ 100 mls/hr 1X PREOP PRN IV PER PROTOCOL Last administered on 07/16/16 05:56; Start 07/16/16 at 10:30; Stop 07/16/16 at 18:00; Status DC Insulin Aspart (Novolog) 15 units 1X ONCE SQ Last administered on 07/15/16 12 :25; Start 07/15/16 at 12:15; Stop 07/15/16 at 12:16; Status DC Warfarin Sodium (Coumadin - No Dose Today) 1 each 1X WARF ONCE MC Last administered on 07/15/16 16:00; Start 07/15/16 at 16:00; Stop 07/15/16 at 16:01 ; Status DC Rocuronium [place] (Zemuron) 50 mg STK-MED ONCE .ROUTE ; Start 07/16/16 at 09:56 ; Stop 07/16/16 at 09:57; Status DC Dexamethasone Sodium Phosphate (Decadron) 20 mg STK-MED ONCE .ROUTE ; Start at 09:58; Stop 07/16/16 at 09:59; Status DC Ondansetron HCl 4 mg 4 mg STK-MED ONCE .ROUTE ; Start 07/16/16 at 09:58; Stop at 09:59; Status DC Propofol (Diprivan) 20 ml @ As Directed STK-MED ONCE IV ; Start 07/16/16 at 09: 58; Stop 07/16/16 at 09:59; Status DC Lidocaine HCl 100 mg STK-MED ONCE .ROUTE ; Start 07/16/16 at 09:58; Stop at 09:59; Status DC Fentanyl Citrate (Fentanyl 5ml Vial) 250 mcg STK-MED ONCE .ROUTE ; Start at 09:58; Stop 07/16/16 at 09:59; Status DC Midazolam HCl (Versed) 2 mg STK-MED ONCE .ROUTE ; Start 07/16/16 at 09:58; Stop 07/16/16 at 09:59; Status DC Famotidine (Pepcid) 20 mg STK-MED ONCE .ROUTE ; Start 07/16/16 at 09:58; Stop at 09:59; Status DC Succinylcholine Chloride (Anectine) 200 mg STK-MED ONCE .ROUTE ; Start 07/16/16 at 10:10; Stop 07/16/16 at 10:11; Status DC Succinylcholine Chloride 200 mg 200 mg STK-MED ONCE .ROUTE ; Start 07/16/16 at 10:26; Stop 07/16/16 at 10:27; Status DC Acetaminophen (Ofirmev) 100 ml @ As Directed STK-MED ONCE IV ; Start 07/16/16 at 11:49; Stop 07/16/16 at 11:50; Status DC Glycopyrrolate (Robinul) 1 mg STK-MED ONCE .ROUTE ; Start 07/16/16 at 11:55; Stop 07/16/16 at 11:56; Status DC Neostigmine Methylsulfate 5 mg STK-MED ONCE .ROUTE ; Start 07/16/16 at 11:55; Stop 07/16/16 at 11:56; Status DC Ondansetron HCl (Zofran) 4 mg PRN Q6HRS PRN IV Nausea; Start 07/16/16 at 12:30 ; Stop 07/17/16 at 12:29; Status DC Fentanyl Citrate (Fentanyl 2ml Vial) 25 mcg PRN Q5MIN PRN IV MILD PAIN; Start 07/16/16 at 12:30; Stop 07/17/16 at 12:29; Status DC Fentanyl Citrate (Fentanyl 2ml Vial) 50 mcg PRN Q5MIN PRN IV MODERATE PAIN; Start 07/16/16 at 12:30; Stop 07/17/16 at 12:29; Status DC Morphine Sulfate 1 mg 1 mg PRN Q10MIN PRN IV SEVERE PAIN; Start 07/16/16 at 12: 30; Stop 07/17/16 at 12:29; Status DC Lactated Ringer's (Iv Lactated Ringers) 1,000 ml @ 30 mls/hr Q24H IV ; Start at 12:28; Stop 07/17/16 at 00:27; Status DC Lidocaine HCl 2 ml 1X PRN PRN ID IV START; Start 07/16/16 at 12:30; Stop at 12:29; Status DC Hydromorphone HCl (Dilaudid) 0.5 mg PRN Q10MIN PRN IV SEV PAIN,Second choice Last administered on 07/16/16 14:38; Start 07/16/16 at 12:30; Stop 07/17/16 at 12:29; Status DC Prochlorperazine Edisylate (Compazine) 5 mg PACU PRN PRN IV NAUSEA; Start 07/16 at 12:30; Stop 07/17/16 at 12:29; Status DC Warfarin Sodium (Coumadin) 10 mg 1X WARF ONCE PO Last administered on 15:58; Start 07/16/16 at 16:00; Stop 07/16/16 at 16:01; Status DC Ondansetron HCl (Zofran) 4 mg PRN Q6HRS PRN IV Nausea Last administered on 07/19 14:09; Start 07/19/16 at 07:00; Stop 07/20/16 at 06:59; Status DC Fentanyl Citrate (Fentanyl 2ml Vial) 25 mcg PRN Q5MIN PRN IV MILD PAIN; Start 07/19/16 at 07:00; Stop 07/20/16 at 06:59; Status DC Fentanyl Citrate (Fentanyl 2ml Vial) 50 mcg PRN Q5MIN PRN IV MODERATE PAIN; Start 07/19/16 at 07:00; Stop 07/20/16 at 06:59; Status DC Morphine Sulfate 1 mg 1 mg PRN Q10MIN PRN IV SEVERE PAIN; Start 07/19/16 at 07: 00; Stop 07/20/16 at 06:59; Status DC Lactated Ringer's (Iv Lactated Ringers) 1,000 ml @ 0 mls/hr Q0M IV Last administered on 07/19/16 10:53; Start 07/19/16 at 07:00; Stop 07/19/16 at 18:59 ; Status DC Lidocaine HCl 2 ml 1X PRN PRN ID IV START; Start 07/19/16 at 07:00; Stop at 06:59; Status DC Hydromorphone HCl (Dilaudid) 0.5 mg PRN Q10MIN PRN IV SEVERE PAIN, Second choice; Start 07/19/16 at 07:00; Stop 07/20/16 at 06:59; Status DC Prochlorperazine Edisylate (Compazine) 5 mg PACU PRN PRN IV NAUSEA; Start 07/19 at 07:00; Stop 07/20/16 at 06:59; Status DC Sodium Chloride (Normal Saline Flush) 10 ml QSHIFT PRN IV AFTER MEDS AND BLOOD DRAWS; Start 07/17/16 at 12:00; Stop 07/17/16 at 12:06; Status DC Lidocaine HCl (Xylocaine 2% Topical 5gm Tube) 1 silvia 1X ONCE TP ; Start at 12:00; Stop 07/17/16 at 12:06; Status DC Lidocaine HCl (Viscous Lidocaine) 15 ml 1X ONCE MM ; Start 07/17/16 at 12:00; Stop 07/17/16 at 12:06; Status DC Benzocaine (Hurricaine One) 1 spray 1X ONCE MM ; Start 07/17/16 at 12:00; Stop 07/17/16 at 12:06; Status DC Bupivacaine HCl/ Epinephrine Bitart (Sensorcaine-Epi 0.25%-1:104363 Mpf) 30 ml STK-MED ONCE .ROUTE ; Start 07/19/16 at 07:20; Stop 07/19/16 at 07:21; Status DC Sodium Chloride (Normal Saline Flush) 10 ml QSHIFT PRN IV AFTER MEDS AND BLOOD DRAWS; Start 07/19/16 at 10:15 Lidocaine HCl (Xylocaine 2% Topical 5gm Tube) 1 silvia 1X ONCE TP ; Start at 10:15; Stop 07/19/16 at 10:16; Status DC Lidocaine HCl (Viscous Lidocaine) 15 ml 1X ONCE MM ; Start 07/19/16 at 10:15; Stop 07/19/16 at 10:16; Status DC Benzocaine 1 spray 1 spray 1X ONCE MM ; Start 07/19/16 at 10:15; Stop 07/19/16 at 10:16; Status DC Propofol (Diprivan) 20 ml @ As Directed STK-MED ONCE IV ; Start 07/19/16 at 10: 37; Stop 07/19/16 at 10:38; Status DC Lidocaine HCl 100 mg STK-MED ONCE .ROUTE ; Start 07/19/16 at 10:37; Stop at 10:38; Status DC Ondansetron HCl (Zofran) 4 mg STK-MED ONCE .ROUTE ; Start 07/19/16 at 10:37; Stop 07/19/16 at 10:38; Status DC Dexamethasone Sodium Phosphate (Decadron) 20 mg STK-MED ONCE .ROUTE ; Start at 10:37; Stop 07/19/16 at 10:38; Status DC Fentanyl Citrate (Fentanyl 2ml Vial) 100 mcg STK-MED ONCE .ROUTE ; Start at 10:37; Stop 07/19/16 at 10:38; Status DC Rocuronium [place] (Zemuron) 50 mg STK-MED ONCE .ROUTE ; Start 07/19/16 at 10:54 ; Stop 07/19/16 at 10:55; Status DC Ephedrine Sulfate 50 mg STK-MED ONCE IV ; Start 07/19/16 at 11:05; Stop at 11:06; Status DC Phenylephrine HCl 1 mg STK-MED ONCE IV ; Start 07/19/16 at 11:07; Stop 07/19/16 at 11:08; Status DC Sevoflurane 30 ml 30 ml STK-MED ONCE IH ; Start 07/19/16 at 11:14; Stop at 11:15; Status DC Propofol (Diprivan) 20 ml @ As Directed STK-MED ONCE IV ; Start 07/19/16 at 12: 15; Stop 07/19/16 at 12:16; Status DC Neostigmine Methylsulfate 5 mg STK-MED ONCE .ROUTE ; Start 07/19/16 at 12:16; Stop 07/19/16 at 12:17; Status DC Glycopyrrolate (Robinul) 1 mg STK-MED ONCE .ROUTE ; Start 07/19/16 at 12:16; Stop 07/19/16 at 12:17; Status DC Phenylephrine HCl 1 mg 1 mg STK-MED ONCE IV ; Start 07/19/16 at 12:25; Stop at 12:26; Status DC Cefazolin Sodium/ Dextrose (Ancef 2gm Premix) 50 ml @ 100 mls/hr 1X PREOP PRN IV FOR SURGERY Last administered on 07/22/16 14:16; Start 07/22/16 at 06:00; Stop 07/22/16 at 18:00; Status DC Ondansetron HCl (Zofran) 4 mg PRN Q6HRS PRN IV Nausea; Start 07/22/16 at 07:00; Stop 07/23/16 at 06:59; Status DC Fentanyl Citrate (Fentanyl 2ml Vial) 25 mcg PRN Q5MIN PRN IV MILD PAIN; Start 07/22/16 at 07:00; Stop 07/23/16 at 06:59; Status DC Fentanyl Citrate (Fentanyl 2ml Vial) 50 mcg PRN Q5MIN PRN IV MODERATE PAIN Last administered on 07/22/16 10:45; Start 07/22/16 at 07:00; Stop 07/23/16 at 06: 59; Status DC Morphine Sulfate 1 mg 1 mg PRN Q10MIN PRN IV SEVERE PAIN; Start 07/22/16 at 07: 00; Stop 07/23/16 at 06:59; Status DC Lactated Ringer's (Iv Lactated Ringers) 1,000 ml @ 0 mls/hr Q0M IV ; Start 07/22 at 07:00; Stop 07/22/16 at 18:59; Status DC Lidocaine HCl 2 ml 1X PRN PRN ID IV START; Start 07/22/16 at 07:00; Stop at 06:59; Status DC Hydromorphone HCl (Dilaudid) 0.5 mg PRN Q10MIN PRN IV SEVERE PAIN, Second choice; Start 07/22/16 at 07:00; Stop 07/23/16 at 06:59; Status DC Prochlorperazine Edisylate (Compazine) 5 mg PACU PRN PRN IV NAUSEA; Start at 07:00; Stop 07/23/16 at 06:59; Status DC Midazolam HCl (Versed) 2 mg STK-MED ONCE .ROUTE ; Start 07/22/16 at 08:15; Stop 07/22/16 at 08:16; Status DC Fentanyl Citrate 100 mcg 100 mcg STK-MED ONCE .ROUTE ; Start 07/22/16 at 08:15; Stop 07/22/16 at 08:16; Status DC Propofol (Diprivan) 20 ml @ As Directed STK-MED ONCE IV ; Start 07/22/16 at 08:15 ; Stop 07/22/16 at 08:16; Status DC Famotidine (Pepcid) 20 mg STK-MED ONCE .ROUTE ; Start 07/22/16 at 08:15; Stop 07/22/16 at 08:16; Status DC Ondansetron HCl (Zofran) 4 mg STK-MED ONCE .ROUTE ; Start 07/22/16 at 08:15; Stop 07/22/16 at 08:16; Status DC Lidocaine HCl 100 mg STK-MED ONCE .ROUTE ; Start 07/22/16 at 08:16; Stop 07/22/16 at 08:17; Status DC Sevoflurane (Ultane) 60 ml STK-MED ONCE IH ; Start 07/22/16 at 08:16; Stop at 08:17; Status DC Sevoflurane (Ultane) 30 ml STK-MED ONCE IH ; Start 07/22/16 at 08:16; Stop at 08:17; Status DC Rocuronium [place] (Zemuron) 50 mg STK-MED ONCE .ROUTE ; Start 07/22/16 at 08:47 ; Stop 07/22/16 at 08:48; Status DC Succinylcholine Chloride (Anectine) 200 mg STK-MED ONCE .ROUTE ; Start 07/22/16 at 08:48; Stop 07/22/16 at 08:49; Status DC Lisinopril (Prinivil) 20 mg DAILY PO Last administered on 07/23/16 07:57; Start 07/22/16 at 12:00 Hydralazine HCl (Apresoline) 10 mg PRN Q4HRS PRN IVP for SBP > 180 Last administered on 07/22/16 11:51; Start 07/22/16 at 11:30 Active Scripts Active Phenergan (Promethazine HCl) 25 Mg Supp.rect 25 Mg RC Q8HRS PRN Zofran Odt (Ondansetron) 4 Mg Tab.rapdis 1 Tab SL Q8HRS PRN Vitals/I & O Vital Sign - Last 24 Hours 07/22/16 07/22/16 07/22/16 07/22/16 10:45 11:00 11:00 11:15 Temp 98.1 98.1 Pulse 83 84 84 Resp 18 B/P 180/87 158/70 189/91 Pulse Ox 95 92 92 O2 Delivery Room Air Room Air O2 Flow Rate 2.0 07/22/16 07/22/16 07/22/16 07/22/16 11:18 11:19 11:30 11:51 Pulse 86 92 94 B/P 158/70 165/68 189/91 O2 Delivery Room Air 07/22/16 07/22/16 07/22/16 07/22/16 11:59 12:01 12:29 12:31 Pulse 96 115 B/P 149/56 173/78 O2 Delivery Room Air Room Air 07/22/16 07/22/16 07/22/16 07/22/16 13:00 13:01 14:00 14:01 Temp 98.1 98.1 98.1 98.1 Pulse 103 106 94 99 Resp 16 18 B/P 161/59 152/58 155/65 150/65 O2 Delivery Room Air Room Air 07/22/16 07/22/16 07/22/16 07/22/16 15:00 15:00 17:13 19:00 Temp 98.4 98.4 99.6 98.4 98.4 99.6 Pulse 95 88 99 Resp 20 16 20 B/P 154/67 150/69 158/63 Pulse Ox 97 93 O2 Delivery Room Air Room Air Room Air Room Air 07/22/16 07/22/16 07/22/16 07/22/16 20:00 21:37 22:37 23:00 Temp 99.2 99.2 Pulse 98 Resp 18 18 20 B/P 142/68 Pulse Ox 93 93 95 O2 Delivery Room Air Room Air Room Air Room Air O2 Flow Rate 2.0 2.0 07/23/16 07/23/16 07/23/16 03:00 07:00 07:57 Temp 98.5 98.3 98.5 98.3 Pulse 85 94 94 Resp 20 18 B/P 152/71 121/89 121/89 Pulse Ox 94 93 O2 Delivery Room Air Room Air Intake and Output 07/22/16 07/22/16 07/23/16 15:00 23:00 07:00 Intake Total 240 ml 250 ml 1300 ml Output Total 555 ml 2300 ml Balance -315 ml 250 ml -1000 ml CLIFFORD BURGOS MD Jul 23, 2016 10:45
[2016-07-23 11:00] VITALS: BP 190/112
[2016-07-23] MEDS: hydrALAZINE 20 MG/ML VIAL. IVP PRN (11:02)
--- NOTE | 2016-07-23 11:54 | PDOC ---
Infectious Disease Note Subjective Subjective Doing. S/p PICC Mobility and pain in shoulder improving Continues to be afebrile Pain controlled Eating well, denies any diarrhea at this time ROS ROS GEN: Denies fevers, chills, sweats HEENT: Denies blurred vision, sore throat CV: Denies chest pain RESP: Denies shortness of air, cough GI: Denies n/v/d NEURO: Denies confusion, dizziness MSK: Denies weakness, joint pain/swelling Vital Sign Vital Signs Vital Signs Date Time Temp Pulse Resp B/P Pulse Ox O2 Delivery O2 Flow Rate FiO2 07/23/16 11:02 190/112 07/23/16 11:00 98.6 100 18 97 Room Air 98.6 07/22/16 22:37 2.0 Physical Exam PHYSICAL EXAM GENERAL: NAD, Alert HEENT: PERRL, OC/OP -clear NECK: Supple, no JVD, no LN LUNGS: Clear HEART: S1S2, no gallop, no murmur ABD: Soft, NT, no organomegaly, no rebound, obese EXT: No edema, no cyanosis. Vac to shoulder MACHINE TECH: Alert, oriented x 3, no focal neurologic deficit SKIN: No rash IV: PICC - clean Labs Lab Laboratory Tests Test 07/22/16 14:37 07/22/16 17:11 07/22/16 21:28 07/23/16 11:13 Glucose (Fingerstick) 172mg/dL (70-99) 175mg/dL (70-99) 204mg/dL (70-99) 202mg/dL (70-99) Objective Assessment Fever - resolved Staph sepsis - 07/11. Repeat cx 07/17 NGTD Staph aureus in urine Shoulder pain and warmth - improving + MSSA s/p I and D ? Septic emboli in UE Leukocytosis - better DM Obesity Pulm nodule ? Incidental mass in abd Plan Plan of Care Continue Cefazolin Repeat BC from 07/17 NGTD. HARISH from 07/19 showed 60-65% EF with no evidence of endocarditis. D/w Dr. Singleton Apparently needs transfer to for other specialist eval ? ENT D/w Dr. Sharpe D/w MELA JAIMES MD Jul 23, 2016 11:54
--- NOTE | 2016-07-23 14:09 | PDOC ---
PROGRESS NOTES Chief Complaint Chief Complaint Shoulder pain Septic joint Bronchitis ASSESSMENT AND PLAN: 1. Septic L shoulder joint: s/p I&D in OR on 07/[address] Wallace. s /p Irrigation and debridement Placed on wound wac,spoke with DR Wallace, planning to transfer to . 2. Sepsis: resolved. blood cultures with MSSA on 07/11 and 07/14. HARISH no vegetation, continue IV cefazolin, ID following. s/p PICC 3. Pain control: has IV morphine; 4. NELIDA: PoA, vasomotor. now resolved 5. Hyponatremia: POA. now resolved 6. DM2: poor control at home (HgbA1c 11), fair control here. on long- and short-acting insulin plus ISS 7. UTI: POA. culture with MSSA 8. Bronchitis: POA. essentially resolved. minor cough persisting 9. LLL lung nodule: OP F/U 10. UE DVT: currently on therapeutic bid Lovenox. change to oral once stable. 11. Hypoalbuminemia: severe, in BMI 38. 12. 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 14. HTN: On lisinopril and PRN hydralazine History of Present Illness History of Present Illness 2nd opinion today no fever no chills. Vitals Vitals Vital Signs Date Time Temp Pulse Resp B/P Pulse Ox O2 Delivery O2 Flow Rate FiO2 07/23/16 11:02 190/112 07/23/16 11:00 98.6 100 18 97 Room Air 98.6 07/22/16 22:37 2.0 Physical Exam General: Alert, Oriented X3, Cooperative, No acute distress Heart: Regular rate, Normal S1, Normal S2, No murmurs Lungs: Clear, Other (No wheezing) Abdomen: Soft, No tenderness Extremities: Other Skin: No rashes, No breakdown, Other (wound wac seen) Labs LABS Laboratory Tests Test 07/22/16 14:37 07/22/16 17:11 07/22/16 21:28 07/23/16 11:13 Glucose (Fingerstick) 172mg/dL (70-99) 175mg/dL (70-99) 204mg/dL (70-99) 202mg/dL (70-99) Assessment and Plan Assessmemt and Plan Problems Medical Problems: (1) Acute renal injury Status: Acute (2) Dehydration Status: Acute (3) Hyponatremia Status: Acute (4) Nausea & vomiting Status: Acute (5) Septic arthritis of acromioclavicular joint Status: Acute (6) Uncontrolled diabetes mellitus Status: Acute Problems: Comment Review of Relevant I have reviewed the following items madison (where applicable) has been applied. Labs Laboratory Tests Test 07/21/16 17:16 07/21/16 20:25 07/22/16 05:35 07/22/16 07:35 Glucose (Fingerstick) 171mg/dL (70-99) 216mg/dL (70-99) 124mg/dL (70-99) White Blood Count 7.0x10^3/uL (4.0-11.0) Red Blood Count 3.55x10^6/uL (4.30-5.70) Hemoglobin 9.9g/dL (13.0-17.5) Hematocrit 29.9% (39.0-53.0) Mean Corpuscular Volume 84fL (79-100) Mean Corpuscular Hemoglobin 28pg (25-35) Mean Corpuscular Hemoglobin Concent 33g/dL (31-37) Red Cell Distribution Width 15.9% (11.5-14.5) Platelet Count 333x10^3/uL (140-400) Neutrophils (%) (Auto) 57% (31-73) Lymphocytes (%) (Auto) 30% (24-48) Monocytes (%) (Auto) 5% (0-9) Eosinophils (%) (Auto) 2% (0-3) Basophils (%) (Auto) 5% (0-3) Neutrophils # (Auto) 4.0x10^3uL (1.8-7.7) Lymphocytes # (Auto) 2.1x10^3/uL (1.0-4.8) Monocytes # (Auto) 0.4x10^3/uL (0.0-1.1) Eosinophils # (Auto) 0.2x10^3/uL (0.0-0.7) Basophils # (Auto) 0.4x10^3/uL (0.0-0.2) Sodium Level 143mmol/L (136-145) Potassium Level 4.1mmol/L (3.5-5.1) Chloride Level 107mmol/L (98-107) Carbon Dioxide Level 32mmol/L (21-32) Anion Gap 4 (6-14) Blood Urea Nitrogen 9mg/dL (8-26) Creatinine 0.6mg/dL (0.7-1.3) Estimated GFR (Cockcroft-Gault) 139.9 Glucose Level 160mg/dL (70-99) Calcium Level 8.5mg/dL (8.5-10.1) Test 07/22/16 09:51 07/22/16 11:09 07/22/16 14:37 07/22/16 17:11 Glucose (Fingerstick) 100mg/dL (70-99) 110mg/dL (70-99) 172mg/dL (70-99) 175mg/dL (70-99) Test 07/22/16 21:28 07/23/16 11:13 Glucose (Fingerstick) 204mg/dL (70-99) 202mg/dL (70-99) Laboratory Tests Test 07/22/16 14:37 07/22/16 17:11 07/22/16 21:28 07/23/16 11:13 Glucose (Fingerstick) 172mg/dL (70-99) 175mg/dL (70-99) 204mg/dL (70-99) 202mg/dL (70-99) Microbiology 07/17/16 Blood Culture - Final, Complete NO GROWTH AFTER 5 DAYS 07/09/16 Urine Culture - Final, Complete 07/09/16 Urine Culture Result 1 (EMILI) - Final, Complete 07/09/16 Antimicrobic Susceptibility - Final, Complete 07/22/16 Gram Stain - Final, Complete Medications Current Medications Sodium Chloride (Iv Sodium Chloride 0.9% 1000ml Bag) 1,000 ml @ 1,000 mls/hr Q1H IV Last administered on 07/09/16 19:34; Start 07/09/16 at 19:18; Stop at 20:17; Status DC Hydromorphone HCl (Dilaudid) 2 mg 1X ONCE IV ; Start 07/09/16 at 19:30; Stop at 19:30; Status DC Ondansetron HCl (Zofran) 4 mg 1X ONCE IV Last administered on 07/09/16 19:33 ; Start 07/09/16 at 19:30; Stop 07/09/16 at 19:31; Status DC Hydromorphone HCl (Dilaudid) 1 mg 1X ONCE IV Last administered on 07/09/16 19 :33; Start 07/09/16 at 19:30; Stop 07/09/16 at 19:31; Status DC Ondansetron HCl (Zofran) 4 mg PRN Q8HRS PRN IV NAUSEA/VOMITING; Start 07/09/16 at 20:30; Stop 07/09/16 at 21:00; Status DC Morphine Sulfate 4 mg 4 mg PRN Q2HR PRN IV PAIN Last administered on 07/10/16 06:36; Start 07/09/16 at 20:30; Stop 07/10/16 at 13:00; Status DC Sodium Chloride (Iv Sodium Chloride 0.9% 1000ml Bag) 1,000 ml @ 150 mls/hr Q6H40M IV Last administered on 07/09/16 20:41; Start 07/09/16 at 20:24; Stop 07/10/16 at 15:29; Status DC Acetaminophen (Tylenol) 650 mg PRN Q4HRS PRN PO FEVER; Start 07/09/16 at 20:30 ; Stop 07/09/16 at 21:00; Status DC Acetaminophen (Tylenol) 650 mg PRN Q6HRS PRN PO FEVER; Start 07/09/16 at 21:00 ; Stop 07/10/16 at 15:28; Status DC Ondansetron HCl 4 mg 4 mg PRN Q6HRS PRN IV NAUSEA/VOMITING Last administered on 07/22/16 08:25; Start 07/09/16 at 21:00 Sodium Chloride (Iv Sodium Chloride 0.9% 1000ml Bag) 1,000 ml @ 150 mls/hr Q6H40M IV Last administered on 07/13/16 17:59; Start 07/09/16 at 21:00; Stop 07/13/16 at 19:27; Status DC Insulin Aspart (Novolog) 0-9 UNITS TIDWMEALS SQ Last administered on 07/23/16 12:01; Start 07/10/16 at 08:00 Dextrose 12.5 gm 12.5 gm PRN Q15MIN PRN IV SEE COMMENTS; Start 07/09/16 at 21: 00 Levofloxacin/ Dextrose (LEVAQUIN 500mg PREMIX) 100 ml @ 100 mls/hr Q24H IV Last administered on 07/12/16 02:49; Start 07/09/16 at 22:00; Stop 07/12/16 at 10:37; Status DC Guaifenesin (Mucinex) 600 mg BID PO Last administered on 07/23/16 07:56; Start 07/09/16 at 21:00 Albuterol Sulfate 2.5 mg 2.5 mg PRN Q4HRS PRN NEB SHORTNESS OF BREATH; Start at 21:00 Sodium Chloride (Iv Sodium Chloride 0.9% 1000ml Bag) 1,000 ml @ 0 mls/hr 1X ONCE IV Last administered on 07/10/16 10:27; Start 07/10/16 at 10:30; Stop at 10:31; Status DC Alprazolam (Xanax) 0.5 mg PRN Q8HRS PRN PO ANXIETY / AGITATION Last administered on 07/23/16 10:41; Start 07/10/16 at 13:00 Acetaminophen/ Hydrocodone Bitart (Lortab 5/325) 1 tab PRN Q6HRS PRN PO MODERATE - SEVERE PAIN Last administered on 07/23/16 10:43; Start 07/10/16 at 13 :00 Acetaminophen (Tylenol) 650 mg PRN Q6HRS PRN PO MILD PAIN / TEMP Last administered on 07/21/16 11:29; Start 07/10/16 at 13:00 Heparin Sodium (Porcine) 5000 unit 5,000 unit Q8HRS SQ Last administered on 14:02; Start 07/10/16 at 14:00; Stop 07/11/16 at 22:55; Status DC Magnesium Sulfate/ Dextrose (Magnesium Sulfate PREMIX 2GM) 50 ml @ 25 mls/hr PRN DAILY PRN IV for Mag < 1.7 on am labs; Start 07/10/16 at 14:00 Diphenhydramine HCl (Benadryl) 25 mg PRN Q6HRS PRN IVP ITCHING Last administered on 07/13/16 01:52; Start 07/11/16 at 01:30 Lorazepam 2 mg 2 mg PRN Q4HRS PRN IV ANXIETY / AGITATION Last administered on 21:49; Start 07/11/16 at 01:30 Albumin Human (Albuminar) 100 ml @ 100 mls/hr TID IV Last administered on 07/13 13:56; Start 07/11/16 at 14:00; Stop 07/13/16 at 09:59; Status DC Insulin Aspart (Novolog) 10 units TIDAC SQ Last administered on 07/12/16 08:46 ; Start 07/11/16 at 12:30; Stop 07/12/16 at 09:17; Status DC Insulin Detemir 25 units 25 units QHS SQ Last administered on 07/12/16 01:48; Start 07/11/16 at 21:00; Stop 07/12/16 at 09:17; Status DC Heparin Sodium/ Dextrose 500 ml @ 0 mls/hr CONT PRN IV SEE I/O RECORD Last administered on 07/13/16 12:12; Start 07/11/16 at 23:00; Stop 07/13/16 at 12:32 ; Status DC Heparin Sodium (Porcine) 3,800 unit PRN Q6HRS PRN IV FOR UFH LEVEL LESS THAN 0.2 Last administered on 07/12/16 19:37; Start 07/11/16 at 23:00; Stop at 12:32; Status DC Heparin Sodium (Porcine) 1,900 unit PRN Q6HRS PRN IV FOR UFH LEVEL 0.2 - 0.29 Last administered on 07/13/16 02:33; Start 07/11/16 at 23:00; Stop 07/13/16 at 12:32; Status DC Warfarin Sodium (Coumadin Per Pharmacy) 1 each PRN DAILY PRN MC PER PROTOCOL Last administered on 07/17/16 13:43; Start 07/11/16 at 23:00; Stop 07/19/16 at 12:42; Status DC Warfarin Sodium (Coumadin) 5 mg 1X ONCE PO Last administered on 07/12/16 01: 45; Start 07/12/16 at 00:15; Stop 07/12/16 at 00:16; Status DC Info (Anti-Coagulation Monitoring By Pharmacy) 1 each PRN DAILY PRN MC SEE COMMENTS Last administered on 07/16/16 14:36; Start 07/11/16 at 23:45 Heparin Sodium (Porcine) 10,000 unit 1X ONCE IV Last administered on 01:48; Start 07/12/16 at 01:15; Stop 07/12/16 at 01:16; Status DC Insulin Aspart (Novolog) 12 units TIDAC SQ Last administered on 07/13/16 12:08 ; Start 07/12/16 at 11:30; Stop 07/13/16 at 12:32; Status DC Insulin Detemir (Levemir) 30 units QHS SQ Last administered on 07/12/16 21:07 ; Start 07/12/16 at 21:00; Stop 07/13/16 at 12:32; Status DC Tramadol HCl (Ultram) 50 mg PRN Q6HRS PRN PO PAIN; Start 07/12/16 at 10:15 Tramadol HCl (Ultram) 50 mg 1X ONCE PO Last administered on 07/12/16 14:32; Start 07/12/16 at 10:15; Stop 07/12/16 at 10:29; Status DC Methylprednisolone Acetate (Depo-Medrol 40mg Vial) 40 mg 1X ONCE IM ; Start at 10:30; Stop 07/12/16 at 10:31; Status DC Bupivacaine HCl (Sensorcaine-Mpf 0.25%) 10 ml 1X ONCE IJ ; Start 07/12/16 at 10 :30; Stop 07/12/16 at 10:31; Status DC Hydromorphone HCl 1 mg 1 mg 1X ONCE IV Last administered on 07/12/16 10:55; Start 07/12/16 at 10:30; Stop 07/12/16 at 10:46; Status DC Cefazolin Sodium 2 gm/Sodium Chloride 50 ml @ 100 mls/hr Q8HRS IV ; Start 07/12 at 11:00; Status Cancel Cefazolin Sodium/ Sodium Chloride (Ancef/Iv Sodium Chloride 0.9% 50ml) 50 ml @ 100 mls/hr Q8HRS IV Last administered on 07/23/16 13:57; Start 07/12/16 at 11: 00 Warfarin Sodium (Coumadin) 6 mg 1X WARF ONCE PO Last administered on 17:58; Start 07/12/16 at 16:00; Stop 07/12/16 at 16:01; Status DC Hydromorphone HCl (Dilaudid) 1 mg PRN Q4HRS PRN IVP PAIN Last administered on 11:59; Start 07/12/16 at 15:30 Polyethylene Glycol (miraLAX PACKET) 17 gm BID PO Last administered on 08:07; Start 07/12/16 at 21:00 Docusate Sodium (Colace) 100 mg PRN DAILY PRN PO CONSTIPATION; Start 07/12/16 at 15:30 Docusate Sodium (Colace) 100 mg DAILY PO Last administered on 07/15/16 08:07; Start 07/13/16 at 09:00 Magnesium Hydroxide (Milk Of Magnesia) 2,400 mg PRN DAILY PRN PO CONSTIPATION; Start 07/12/16 at 15:30 Gadobutrol (Gadavist) 7 mmol 1X ONCE IV Last administered on 07/13/16 10:45; Start 07/13/16 at 10:45; Stop 07/13/16 at 10:51; Status DC Gadobutrol (Gadavist) 7 mmol 1X ONCE IV Last administered on 07/13/16 10:45; Start 07/13/16 at 10:45; Stop 07/13/16 at 10:51; Status DC Warfarin Sodium (Coumadin) 10 mg 1X WARF ONCE PO Last administered on 17:56; Start 07/13/16 at 16:00; Stop 07/13/16 at 16:01; Status DC Enoxaparin Sodium (Lovenox Per Pharmacy Treatment Dosing) 1 each PRN DAILY PRN MC SEE COMMENTS; Start 07/13/16 at 12:30 Insulin Aspart (Novolog) 15 units TIDAC SQ Last administered on 07/23/16 12:00 ; Start 07/13/16 at 16:30 Insulin Detemir (Levemir) 40 units QHS SQ Last administered on 07/22/16 21:40; Start 07/13/16 at 21:00 Enoxaparin Sodium (Lovenox 150mg Syringe) 140 mg BID SQ Last administered on 07:57; Start 07/13/16 at 21:00 Warfarin Sodium (Coumadin) 15 mg 1X WARF ONCE PO ; Start 07/14/16 at 16:00; Stop 07/14/16 at 16:01; Status DC Ondansetron HCl (Zofran) 4 mg PRN Q6HRS PRN IV Nausea; Start 07/14/16 at 13:45 ; Stop 07/14/16 at 20:00; Status DC Fentanyl Citrate (Fentanyl 2ml Vial) 25 mcg PRN Q5MIN PRN IV MILD PAIN; Start 07/14/16 at 13:45; Stop 07/14/16 at 20:00; Status DC Fentanyl Citrate (Fentanyl 2ml Vial) 50 mcg PRN Q5MIN PRN IV MODERATE PAIN Last administered on 07/14/16 18:15; Start 07/14/16 at 13:45; Stop 07/15/16 at 20:00; Status DC Morphine Sulfate 1 mg 1 mg PRN Q10MIN PRN IV SEVERE PAIN; Start 07/14/16 at 13: 45; Stop 07/14/16 at 20:00; Status DC Lactated Ringer's (Iv Lactated Ringers) 1,000 ml @ 30 mls/hr Q24H IV ; Start at 13:42; Stop 07/14/16 at 19:44; Status DC Lidocaine HCl 2 ml 1X PRN PRN ID IV START; Start 07/14/16 at 13:45; Stop at 20:00; Status DC Hydromorphone HCl (Dilaudid) 0.5 mg PRN Q10MIN PRN IV SEV PAIN,Second choice; Start 07/14/16 at 13:45; Stop 07/14/16 at 18:00; Status DC Prochlorperazine Edisylate (Compazine) 5 mg PACU PRN PRN IV NAUSEA Last administered on 07/14/16 17:55; Start 07/14/16 at 13:45; Stop 07/14/16 at 20:00 ; Status DC Bupivacaine HCl/ Epinephrine Bitart 50 ml 50 ml STK-MED ONCE .ROUTE ; Start at 15:20; Stop 07/14/16 at 15:21; Status DC Propofol (Diprivan) 20 ml @ As Directed STK-MED ONCE IV ; Start 07/14/16 at 15: 26; Stop 07/14/16 at 15:27; Status DC Lidocaine HCl 100 mg STK-MED ONCE .ROUTE ; Start 07/14/16 at 15:26; Stop at 15:27; Status DC Fentanyl Citrate (Fentanyl 2ml Vial) 100 mcg STK-MED ONCE .ROUTE ; Start at 15:27; Stop 07/14/16 at 15:28; Status DC Rocuronium [place] (Zemuron) 50 mg STK-MED ONCE .ROUTE ; Start 07/14/16 at 15:27 ; Stop 07/14/16 at 15:28; Status DC Dexamethasone Sodium Phosphate (Decadron) 20 mg STK-MED ONCE .ROUTE ; Start at 16:34; Stop 07/14/16 at 16:35; Status DC Desflurane (Suprane) 30 ml STK-MED ONCE IH ; Start 07/14/16 at 16:35; Stop 07/14 at 16:36; Status DC Ondansetron HCl (Zofran) 4 mg STK-MED ONCE .ROUTE ; Start 07/14/16 at 16:46; Stop 07/14/16 at 16:47; Status DC Glycopyrrolate (Robinul) 1 mg STK-MED ONCE .ROUTE ; Start 07/14/16 at 16:46; Stop 07/14/16 at 16:47; Status DC Neostigmine Methylsulfate 5 mg STK-MED ONCE .ROUTE ; Start 07/14/16 at 16:46; Stop 07/14/16 at 16:47; Status DC Fentanyl Citrate (Fentanyl 2ml Vial) 100 mcg STK-MED ONCE .ROUTE ; Start at 16:57; Stop 07/14/16 at 16:58; Status DC Insulin Aspart 10 units 10 units 1X ONCE SQ Last administered on 07/15/16t 08: 26; Start 07/15/16 at 08:30; Stop 07/15/16 at 08:31; Status DC Cefazolin Sodium/ Dextrose (Ancef 2gm Premix) 50 ml @ 100 mls/hr 1X PREOP PRN IV PER PROTOCOL Last administered on 07/16/16t 05:56; Start 07/16/16 at 10:30; Stop 07/16/16 at 18:00; Status DC Insulin Aspart (Novolog) 15 units 1X ONCE SQ Last administered on 07/15/16 12 :25; Start 07/15/16 at 12:15; Stop 07/15/16 at 12:16; Status DC Warfarin Sodium (Coumadin - No Dose Today) 1 each 1X WARF ONCE MC Last administered on 07/15/16t 16:00; Start 07/15/16 at 16:00; Stop 07/15/16 at 16:01 ; Status DC Rocuronium [place] (Zemuron) 50 mg STK-MED ONCE .ROUTE ; Start 07/16/16 at 09:56 ; Stop 07/16/16 at 09:57; Status DC Dexamethasone Sodium Phosphate (Decadron) 20 mg STK-MED ONCE .ROUTE ; Start at 09:58; Stop 07/16/16 at 09:59; Status DC Ondansetron HCl 4 mg 4 mg STK-MED ONCE .ROUTE ; Start 07/16/16 at 09:58; Stop at 09:59; Status DC Propofol (Diprivan) 20 ml @ As Directed STK-MED ONCE IV ; Start 07/16/16 at 09: 58; Stop 07/16/16 at 09:59; Status DC Lidocaine HCl 100 mg STK-MED ONCE .ROUTE ; Start 07/16/16 at 09:58; Stop at 09:59; Status DC Fentanyl Citrate (Fentanyl 5ml Vial) 250 mcg STK-MED ONCE .ROUTE ; Start at 09:58; Stop 07/16/16 at 09:59; Status DC Midazolam HCl (Versed) 2 mg STK-MED ONCE .ROUTE ; Start 07/16/16 at 09:58; Stop 07/16/16 at 09:59; Status DC Famotidine (Pepcid) 20 mg STK-MED ONCE .ROUTE ; Start 07/16/16 at 09:58; Stop at 09:59; Status DC Succinylcholine Chloride (Anectine) 200 mg STK-MED ONCE .ROUTE ; Start 07/16/16 at 10:10; Stop 07/16/16 at 10:11; Status DC Succinylcholine Chloride 200 mg 200 mg STK-MED ONCE .ROUTE ; Start 07/16/16 at 10:26; Stop 07/16/16 at 10:27; Status DC Acetaminophen (Ofirmev) 100 ml @ As Directed STK-MED ONCE IV ; Start 07/16/16 at 11:49; Stop 07/16/16 at 11:50; Status DC Glycopyrrolate (Robinul) 1 mg STK-MED ONCE .ROUTE ; Start 07/16/16 at 11:55; Stop 07/16/16 at 11:56; Status DC Neostigmine Methylsulfate 5 mg STK-MED ONCE .ROUTE ; Start 07/16/16 at 11:55; Stop 07/16/16 at 11:56; Status DC Ondansetron HCl (Zofran) 4 mg PRN Q6HRS PRN IV Nausea; Start 07/16/16 at 12:30 ; Stop 07/17/16 at 12:29; Status DC Fentanyl Citrate (Fentanyl 2ml Vial) 25 mcg PRN Q5MIN PRN IV MILD PAIN; Start 07/16/16 at 12:30; Stop 07/17/16 at 12:29; Status DC Fentanyl Citrate (Fentanyl 2ml Vial) 50 mcg PRN Q5MIN PRN IV MODERATE PAIN; Start 07/16/16 at 12:30; Stop 07/17/16 at 12:29; Status DC Morphine Sulfate 1 mg 1 mg PRN Q10MIN PRN IV SEVERE PAIN; Start 07/16/16 at 12: 30; Stop 07/17/16 at 12:29; Status DC Lactated Ringer's (Iv Lactated Ringers) 1,000 ml @ 30 mls/hr Q24H IV ; Start at 12:28; Stop 07/17/16 at 00:27; Status DC Lidocaine HCl 2 ml 1X PRN PRN ID IV START; Start 07/16/16 at 12:30; Stop at 12:29; Status DC Hydromorphone HCl (Dilaudid) 0.5 mg PRN Q10MIN PRN IV SEV PAIN,Second choice Last administered on 07/16/16t 14:38; Start 07/16/16 at 12:30; Stop 07/17/16 at 12:29; Status DC Prochlorperazine Edisylate (Compazine) 5 mg PACU PRN PRN IV NAUSEA; Start 07/16 at 12:30; Stop 07/17/16 at 12:29; Status DC Warfarin Sodium (Coumadin) 10 mg 1X WARF ONCE PO Last administered on 15:58; Start 07/16/16 at 16:00; Stop 07/16/16 at 16:01; Status DC Ondansetron HCl (Zofran) 4 mg PRN Q6HRS PRN IV Nausea Last administered on 07/19 14:09; Start 07/19/16 at 07:00; Stop 07/20/16 at 06:59; Status DC Fentanyl Citrate (Fentanyl 2ml Vial) 25 mcg PRN Q5MIN PRN IV MILD PAIN; Start 07/19/16 at 07:00; Stop 07/20/16 at 06:59; Status DC Fentanyl Citrate (Fentanyl 2ml Vial) 50 mcg PRN Q5MIN PRN IV MODERATE PAIN; Start 07/19/16 at 07:00; Stop 07/20/16 at 06:59; Status DC Morphine Sulfate 1 mg 1 mg PRN Q10MIN PRN IV SEVERE PAIN; Start 07/19/16 at 07: 00; Stop 07/20/16 at 06:59; Status DC Lactated Ringer's (Iv Lactated Ringers) 1,000 ml @ 0 mls/hr Q0M IV Last administered on 07/19/16 10:53; Start 07/19/16 at 07:00; Stop 07/19/16 at 18:59 ; Status DC Lidocaine HCl 2 ml 1X PRN PRN ID IV START; Start 07/19/16 at 07:00; Stop at 06:59; Status DC Hydromorphone HCl (Dilaudid) 0.5 mg PRN Q10MIN PRN IV SEVERE PAIN, Second choice; Start 07/19/16 at 07:00; Stop 07/20/16 at 06:59; Status DC Prochlorperazine Edisylate (Compazine) 5 mg PACU PRN PRN IV NAUSEA; Start 07/19 at 07:00; Stop 07/20/16 at 06:59; Status DC Sodium Chloride (Normal Saline Flush) 10 ml QSHIFT PRN IV AFTER MEDS AND BLOOD DRAWS; Start 07/17/16 at 12:00; Stop 07/17/16 at 12:06; Status DC Lidocaine HCl (Xylocaine 2% Topical 5gm Tube) 1 silvia 1X ONCE TP ; Start at 12:00; Stop 07/17/16 at 12:06; Status DC Lidocaine HCl (Viscous Lidocaine) 15 ml 1X ONCE MM ; Start 07/17/16 at 12:00; Stop 07/17/16 at 12:06; Status DC Benzocaine (Hurricaine One) 1 spray 1X ONCE MM ; Start 07/17/16 at 12:00; Stop 07/17/16 at 12:06; Status DC Bupivacaine HCl/ Epinephrine Bitart (Sensorcaine-Epi 0.25%-1:200676 Mpf) 30 ml STK-MED ONCE .ROUTE ; Start 07/19/16 at 07:20; Stop 07/19/16 at 07:21; Status DC Sodium Chloride (Normal Saline Flush) 10 ml QSHIFT PRN IV AFTER MEDS AND BLOOD DRAWS; Start 07/19/16 at 10:15 Lidocaine HCl (Xylocaine 2% Topical 5gm Tube) 1 silvia 1X ONCE TP ; Start at 10:15; Stop 07/19/16 at 10:16; Status DC Lidocaine HCl (Viscous Lidocaine) 15 ml 1X ONCE MM ; Start 07/19/16 at 10:15; Stop 07/19/16 at 10:16; Status DC Benzocaine 1 spray 1 spray 1X ONCE MM ; Start 07/19/16 at 10:15; Stop 07/19/16 at 10:16; Status DC Propofol (Diprivan) 20 ml @ As Directed STK-MED ONCE IV ; Start 07/19/16 at 10: 37; Stop 07/19/16 at 10:38; Status DC Lidocaine HCl 100 mg STK-MED ONCE .ROUTE ; Start 07/19/16 at 10:37; Stop at 10:38; Status DC Ondansetron HCl (Zofran) 4 mg STK-MED ONCE .ROUTE ; Start 07/19/16 at 10:37; Stop 07/19/16 at 10:38; Status DC Dexamethasone Sodium Phosphate (Decadron) 20 mg STK-MED ONCE .ROUTE ; Start at 10:37; Stop 07/19/16 at 10:38; Status DC Fentanyl Citrate (Fentanyl 2ml Vial) 100 mcg STK-MED ONCE .ROUTE ; Start at 10:37; Stop 07/19/16 at 10:38; Status DC Rocuronium [place] (Zemuron) 50 mg STK-MED ONCE .ROUTE ; Start 07/19/16 at 10:54 ; Stop 07/19/16 at 10:55; Status DC Ephedrine Sulfate 50 mg STK-MED ONCE IV ; Start 07/19/16 at 11:05; Stop at 11:06; Status DC Phenylephrine HCl 1 mg STK-MED ONCE IV ; Start 07/19/16 at 11:07; Stop 07/19/16 at 11:08; Status DC Sevoflurane 30 ml 30 ml STK-MED ONCE IH ; Start 07/19/16 at 11:14; Stop at 11:15; Status DC Propofol (Diprivan) 20 ml @ As Directed STK-MED ONCE IV ; Start 07/19/16 at 12: 15; Stop 07/19/16 at 12:16; Status DC Neostigmine Methylsulfate 5 mg STK-MED ONCE .ROUTE ; Start 07/19/16 at 12:16; Stop 07/19/16 at 12:17; Status DC Glycopyrrolate (Robinul) 1 mg STK-MED ONCE .ROUTE ; Start 07/19/16 at 12:16; Stop 07/19/16 at 12:17; Status DC Phenylephrine HCl 1 mg 1 mg STK-MED ONCE IV ; Start 07/19/16 at 12:25; Stop at 12:26; Status DC Cefazolin Sodium/ Dextrose (Ancef 2gm Premix) 50 ml @ 100 mls/hr 1X PREOP PRN IV FOR SURGERY Last administered on 07/22/16t 14:16; Start 07/22/16 at 06:00; Stop 07/22/16 at 18:00; Status DC Ondansetron HCl (Zofran) 4 mg PRN Q6HRS PRN IV Nausea; Start 07/22/16 at 07:00; Stop 07/23/16 at 06:59; Status DC Fentanyl Citrate (Fentanyl 2ml Vial) 25 mcg PRN Q5MIN PRN IV MILD PAIN; Start 07/22/16 at 07:00; Stop 07/23/16 at 06:59; Status DC Fentanyl Citrate (Fentanyl 2ml Vial) 50 mcg PRN Q5MIN PRN IV MODERATE PAIN Last administered on 07/22/16t 10:45; Start 07/22/16 at 07:00; Stop 07/23/16 at 06: 59; Status DC Morphine Sulfate 1 mg 1 mg PRN Q10MIN PRN IV SEVERE PAIN; Start 07/22/16 at 07: 00; Stop 07/23/16 at 06:59; Status DC Lactated Ringer's (Iv Lactated Ringers) 1,000 ml @ 0 mls/hr Q0M IV ; Start 07/22 at 07:00; Stop 07/22/16 at 18:59; Status DC Lidocaine HCl 2 ml 1X PRN PRN ID IV START; Start 07/22/16 at 07:00; Stop at 06:59; Status DC Hydromorphone HCl (Dilaudid) 0.5 mg PRN Q10MIN PRN IV SEVERE PAIN, Second choice; Start 07/22/16 at 07:00; Stop 07/23/16 at 06:59; Status DC Prochlorperazine Edisylate (Compazine) 5 mg PACU PRN PRN IV NAUSEA; Start at 07:00; Stop 07/23/16 at 06:59; Status DC Midazolam HCl (Versed) 2 mg STK-MED ONCE .ROUTE ; Start 07/22/16 at 08:15; Stop 07/22/16 at 08:16; Status DC Fentanyl Citrate 100 mcg 100 mcg STK-MED ONCE .ROUTE ; Start 07/22/16 at 08:15; Stop 07/22/16 at 08:16; Status DC Propofol (Diprivan) 20 ml @ As Directed STK-MED ONCE IV ; Start 07/22/16 at 08:15 ; Stop 07/22/16 at 08:16; Status DC Famotidine (Pepcid) 20 mg STK-MED ONCE .ROUTE ; Start 07/22/16 at 08:15; Stop 07/22/16 at 08:16; Status DC Ondansetron HCl (Zofran) 4 mg STK-MED ONCE .ROUTE ; Start 07/22/16 at 08:15; Stop 3/2/17 at 08:16; Status DC Lidocaine HCl 100 mg STK-MED ONCE .ROUTE ; Start 07/22/16 at 08:16; Stop 07/22/16 at 08:17; Status DC Sevoflurane (Ultane) 60 ml STK-MED ONCE IH ; Start 07/22/16 at 08:16; Stop at 08:17; Status DC Sevoflurane (Ultane) 30 ml STK-MED ONCE IH ; Start 07/22/16 at 08:16; Stop at 08:17; Status DC Rocuronium [place] (Zemuron) 50 mg STK-MED ONCE .ROUTE ; Start 07/22/16 at 08:47 ; Stop 07/22/16 at 08:48; Status DC Succinylcholine Chloride (Anectine) 200 mg STK-MED ONCE .ROUTE ; Start 07/22/16 at 08:48; Stop 07/22/16 at 08:49; Status DC Lisinopril (Prinivil) 20 mg DAILY PO Last administered on 07/23/16 07:57; Start 07/22/16 at 12:00 Hydralazine HCl (Apresoline) 10 mg PRN Q4HRS PRN IVP for SBP > 180 Last administered on 07/23/16 11:02; Start 07/22/16 at 11:30 Active Scripts Active Phenergan (Promethazine HCl) 25 Mg Supp.rect 25 Mg RC Q8HRS PRN Zofran Odt (Ondansetron) 4 Mg Tab.rapdis 1 Tab SL Q8HRS PRN Vitals/I & O Vital Sign - Last 24 Hours 07/22/16 07/22/16 07/22/16 07/22/16 15:00 15:00 17:13 19:00 Temp 98.4 98.4 99.6 98.4 98.4 99.6 Pulse 95 88 99 Resp 20 16 20 B/P 154/67 150/69 158/63 Pulse Ox 97 93 O2 Delivery Room Air Room Air Room Air Room Air 07/22/16 07/22/16 07/22/16 07/22/16 20:00 21:37 22:37 23:00 Temp 99.2 99.2 Pulse 98 Resp 18 18 20 B/P 142/68 Pulse Ox 93 93 95 O2 Delivery Room Air Room Air Room Air Room Air O2 Flow Rate 2.0 2.0 07/23/16 07/23/16 07/23/16 07/23/16 03:00 07:00 07:57 11:00 Temp 98.5 98.3 98.6 98.5 98.3 98.6 Pulse 85 94 94 100 Resp 20 18 18 B/P 152/71 121/89 121/89 190/112 Pulse Ox 94 93 97 O2 Delivery Room Air Room Air Room Air 07/23/16 11:02 B/P 190/112 Intake and Output 07/22/16 07/22/16 07/23/16 15:00 23:00 07:00 Intake Total 240 ml 250 ml 1300 ml Output Total 555 ml 2300 ml Balance -315 ml 250 ml -1000 ml MANOHAR FITZPATRICK MD Jul 23, 2016 14:09
[2016-07-23] MEDS: ANTI-COAG MONITOR BY PHARMACY. MC PRN (14:15)
[2016-07-23 14:51] VITALS: BP 144/70
--- NOTE | 2016-07-24 03:56 | DS ---
DATE OF DISCHARGE: 07/23/2016 DISCHARGE DIAGNOSES: 1. Septic left shoulder joint, status post I and D multiple times by Dr. Wallace. 2. Sepsis, resolved. Blood cultures positive for MSSA on 07/11/2016 and 07/14/2016, currently on IV cefazolin, status post PICC line placement. 3. Intractable pain due to shoulder pain. 4. Acute kidney injury , resolved. 5. Hyponatremia, resolved. 6. Type 2 diabetes mellitus, with hyperglycemia 7. Hyperglycemia. 8. Urinary tract infection 9. Bronchitis, resolved. 10. Lower lung nodules. Need outpatient followup. 11. Upper extremity deep venous thrombosis, on Lovenox. 12. Hypoalbuminemia, severe. 13. Obesity. 14. Hypertension, stable. BRIEF HOSPITAL COURSE: A 55-year-old male patient admitted to the hospital on 07/09/2016 for cough and generalized weakness initially with admitting diagnoses of dehydration and hyponatremia. Also he has been seen by several consulting physicians; Pulmonology, Dr. Espitia, and Dr. Pineda, and Dr. Wallace. The patient had an incision and drainage for right AC joint . During hospitalization, the patient had several I and D's and also he was placed on wound VAC; however, the drainage is not improving. The patient was diagnosed with MSSA sepsis and he was on cefazolin. His HARISH did not show any vegetations. Due to nonresolving abscess, Dr. Wallace thinks the patient needs further surgical help and expertise at ,and the patient has been transferred in stable condition to for further expertise. Plan has been explained to the patient and his . They initially declined, a second opinion obtained from Dr. Sharpe, After his discussion with Dr reese with current management. DISCHARGE EXAMINATION: Please see my progress note. DISCHARGE CONDITION: Stable. DISCHARGE MEDICATIONS: Please see MRAD. Main medications: 1. Cefazolin IV daily. 2. Lovenox 140 mg b.i.d. subcutaneously. DISCHARGE DISPOSITION: [facility]. DISCHARGE CONDITION: Stable. PROGNOSIS: Guarded. FOLLOWUP: With Dr. Wallace and other subspecialists, especially pulmonology. DISCHARGE TIME: Total time spent for discharge is 40 minutes for patient education, counseling, and coordination of care. MANOHAR FITZPATRICK MD DR: [email or web address]/luke JOB#: [id number] / [id number] SAPPHIRE
[2016-07-26] MEDS ORDERED: FENTANYL PF 100 MCG/2 ML VIAL. IV PRN ×2 (07:00)
[2016-07-26] MEDS ORDERED: IV RINGERS,LACTATED 1000ML 1,000 ML IV SCH (07:00)
[2016-07-26] MEDS ORDERED: HYDROMORPHONE 2 MG/ML VIAL. IV PRN (07:00)
[2016-07-26] MEDS ORDERED: MORPHINE SULFATE 2 MG/ML DISP.SYRIN. IV PRN (07:00)
[2016-07-26] MEDS ORDERED: PROCHLORPERAZINE 10 MG/2 ML VIAL. IV PRN (07:00)
[2016-07-26] MEDS ORDERED: ONDANSETRON PF 4 MG/2 ML VIAL. IV PRN (07:00)
[2016-07-26] MEDS ORDERED: LIDOCAINE 1% 1 ML SYRINGE. ID PRN (07:00)
== END 2016-07-23 15:10 | disposition short-term general hospital (02) | DRG 853 ==
LOC: ER 18:06 → 5 NORTH 20:23
PROVIDERS: ADMIT Internal Medicine; ATTEND Internal Medicine
PROC: 0HBCXZZ Excision of Left Upper Arm Skin, External Approach (ICD-10-PCS; principal; 2016-07-15)
PROC: 2W09X6Z Change Pressure Dressing on Left Upper Extremity (ICD-10-PCS; 2016-07-19 11:00)
PROC: 02HV33Z Insertion of Infusion Device into Superior Vena Cava, Percutaneous Approach (ICD-10-PCS; 2016-07-21)
DX: A41.2 Sepsis due to unspecified staphylococcus (principal); N17.0 Acute kidney failure with tubular necrosis; E43 Unspecified severe protein-calorie malnutrition; E87.1 Hypo-osmolality and hyponatremia; I82.629 Acute embolism and thrombosis of deep veins of unspecified upper extremity; L02.413 Cutaneous abscess of right upper limb; L02.414 Cutaneous abscess of left upper limb; L03.114 Cellulitis of left upper limb; M00.9 Pyogenic arthritis, unspecified; N39.0 Urinary tract infection, site not specified; Z68.41 Body mass index [BMI] 40.0-44.9, adult; J20.8 Acute bronchitis due to other specified organisms; E11.42 Type 2 diabetes mellitus with diabetic polyneuropathy; Z96.659 Presence of unspecified artificial knee joint; I10 Essential (primary) hypertension; E11.43 Type 2 diabetes mellitus with diabetic autonomic (poly)neuropathy; E11.65 Type 2 diabetes mellitus with hyperglycemia; G89.29 Other chronic pain; E66.01 Morbid (severe) obesity due to excess calories; J20.9 Acute bronchitis, unspecified; K59.09 Other constipation; M17.0 Bilateral primary osteoarthritis of knee; M77.9 Enthesopathy, unspecified; M79.1 Myalgia; Z79.2 Long term (current) use of antibiotics; Z83.3 Family history of diabetes mellitus
CPT/HCPCS: 36415; 36569; 71010; 71250; 72156; 73030; 73223; 76000; 76770; 78264; 78582; 80048; 80053; 80069; 81001; 82274; 82533; 82550; 82570; 82947; 83036; 83605; 83690; 83735; 84100; 84156; 84443; 84484; 84550; 85007; 85027; 85347; 85520; 85610; 85651; 85730; 87040; 87071; 87075; 87086; 87102; 87186; 87205; 87324; 93005; 93306; 93312; 93325; 93970; 94250; 94760; 96374; 96375; A9540; A9541; A9558; J0131; J0330; J0360; J0690; J0780; J1100; J1170; J1200; J1650; J1815; J1956; J2060; J2250; J2270; J2370; J2405; J2704; J2710; J3010; J3490; J7030; J7120; P9046; S0028; 97110; 97116; 97530; 97535; 99285-25; A9585